=== PATIENT | female | born 1985 | race Caucasian/White ===

== ENCOUNTER 2018-03-16 21:29 | Emergency (ER) | payer MEDICAID, OTHER ==
[~2018-03-16] VITALS: Ht 167.6 cm; Wt 72.7 kg
[~2018-03-16 21:29] MED LIST: CATA0.1T PO; CELE40TA PO; FOLI1TAB5 PO; NICO21PAT TD; TRAZ-163 PO; Thiamine Hcl PO; VITA100T88 PO; VITMTA PO
[2018-03-16 21:30] VITALS: BP 128/90
== END 2018-03-16 23:25 | disposition home or self-care (01) ==
LOC: M ED 21:29
DX: F10.120 Alcohol abuse with intoxication, uncomplicated (principal); Z98.84 Bariatric surgery status; F17.210 Nicotine dependence, cigarettes, uncomplicated

== ENCOUNTER → 2018-04-19 | Outpatient (REF) | payer MEDICAID, OTHER ==
[~2018-04-19] MED LIST changes: +FOLI1TAB11 PO; -FOLI1TAB5 PO
[2018-04-19 13:52] LABS: CHLAMYDIA DNA AMPLIFICATION NEGATIVE (NEGATIVE); GC DNA AMPLIFICATION NEGATIVE (NEGATIVE)
== END ==
LOC: M SFHCPLAZ 11:40
PROVIDERS: ATTEND Student in an Organized Health Care Education/Training Program
DX: Z11.3 Encounter for screening for infections with a predominantly sexual mode of transmission (principal)

== ENCOUNTER → 2018-04-26 | Outpatient (CLI) | payer MEDICAID ==
[2018-04-26 15:42] LABS: HEPATITIS A ANTIBODY IGM NEGATIVE (NEGATIVE); HEPATITIS B CORE ANTIBODY IGM NEGATIVE (NEGATIVE); HEPATITIS B SURFACE ANTIGEN NEGATIVE (NEGATIVE); HEPATITIS C VIRUS ABY INDEX 0.1 INDEX (<0.8); HIV 1&2 SCREEN CENTAUR NEGATIVE (NEGATIVE)
== END ==
LOC: M OUTALCOH 11:48 → M LABDRAW1 11:48
PROVIDERS: ATTEND Psychiatry & Neurology Psychiatry
DX: Z11.3 Encounter for screening for infections with a predominantly sexual mode of transmission (principal); Z11.59 Encounter for screening for other viral diseases; F11.20 Opioid dependence, uncomplicated

== ENCOUNTER 2018-05-17 16:00 | Outpatient (RCR) | payer MEDICAID | END 2018-05-18 | LOC: M OUTALCOH 16:00 | PROVIDERS: ATTEND Psychiatry & Neurology Psychiatry | DX: F10.20 Alcohol dependence, uncomplicated (principal) ==

== ENCOUNTER 2018-05-25 12:45 | Inpatient (IN) | payer MEDICAID, OTHER ==
[~2018-05-25] VITALS: Ht 167.6 cm; Wt 68.2 kg
[2018-05-25] MEDS ORDERED: LORazepam 2 MG/ML VIAL (J2060) As Ordered ONE ×2 (12:58→13:24)
[2018-05-25] MEDS ORDERED: XANA0.5T PO (13:06)
[2018-05-25] MEDS ORDERED: CITA40TA4 PO (13:06)
[2018-05-25] MEDS ORDERED: LARI1TAB5 PO (13:06)
[2018-05-25] MEDS ORDERED: NS 1,000 ML IV ONE ×2 (13:15→15:15)
[2018-05-25] MEDS ORDERED: LORazepam 2 MG/ML VIAL (J2060) IV STA ×4 (13:23→17:40)
[2018-05-25 13:32] LABS: BASO % 0.2 % (0.0-1.0); EOS % 0.2 % (0.0-3.0); HEMATOCRIT 36.9 % (36.0-47.0); HEMOGLOBIN 12.7 g/dl (12.0-15.5); LYMPH % 17.6 % (24.0-44.0); MEAN CORPUSCULAR HEMOGLOBIN 31.5 pg (27.0-33.0); MEAN CORPUSCULAR HGB CONC 34.4 g/dl (32.0-36.5); MEAN CORPUSCULAR VOLUME 91.6 fl (80.0-96.0); MONO # 0.4 10^3/uL (0.0-0.8); MONO % 6.7 % (0.0-5.0); NEUTROPHILS # 4.1 10^3/uL (1.8-7.7); NEUTROPHILS % 74.9 % (36.0-66.0); PLATELET COUNT, AUTOMATED 125 10^3/uL (150-450); RED BLOOD COUNT 4.03 10^6/uL (4.00-5.40); WHITE BLOOD COUNT 5.4 10^3/uL (4.0-10.0)
[2018-05-25 13:52] LABS: HCG, SERUM QUALITATIVE NEGATIVE (NEGATIVE)
[2018-05-25 14:05] LABS: AMPHETAMINES LEVEL URINE NEGATIVE (NEGATIVE); BARBITURATES URINE NEGATIVE (NEGATIVE); BENZODIAZEPINES URINE NEGATIVE (NEGATIVE); CANNABINOIDS URINE NEGATIVE (NEGATIVE); COCAINE METABOLITE URINE NEGATIVE (NEGATIVE); METHADONE URINE NEGATIVE (NEGATIVE); OPIATES URINE NEGATIVE (NEGATIVE); PHENCYCLIDINE URINE NEGATIVE (NEGATIVE)
[2018-05-25 14:16] LABS: OSMOLALITY SERUM 299 MOSM/KG (275-295)
[2018-05-25 14:17] LABS: ACETAMINOPHEN LEVEL < 2.0 UG/ML (10.0-30.0); ALBUMIN 3.6 GM/DL (3.2-5.2); ALT/SGPT 66 U/L (12-78); BILIRUBIN,DIRECT 0.3 MG/DL (0.0-0.2); BILIRUBIN,TOTAL 0.9 MG/DL (0.2-1.0); BLOOD UREA NITROGEN 6 MG/DL (7-18); CALCIUM LEVEL 8.3 MG/DL (8.5-10.1); CARBON DIOXIDE LEVEL 23 MEQ/L (21-32); CHLORIDE LEVEL 94 MEQ/L (98-107); CPK CREATINE PHOSPHOKINASE 1123 U/L (26-192); CREATININE FOR GFR 0.48 MG/DL (0.55-1.30); ETHYL ALCOHOL (ETHANOL) 0.081 % (0.000-0.010); GLOMERULAR FILTRATION RATE > 60.0 (>60); GLUCOSE, FASTING 98 MG/DL (70-100); MB/CK RELATIVE INDEX 0.37 (< OR =4); POTASSIUM SERUM 3.1 MEQ/L (3.5-5.1); SALICYLATE LEVEL < 1.7 MG/DL (5.0-30.0); SODIUM LEVEL 134 MEQ/L (136-145); TOTAL PROTEIN 6.7 GM/DL (6.4-8.2); TROPONIN I < 0.02 NG/ML (< 0.10)
[2018-05-25 14:35] LABS: MAGNESIUM LEVEL 1.5 MG/DL (1.8-2.4)
--- NOTE | 2018-05-25 14:36 | REP ---
Portable chest: Single view. History: Altered mental status. Comparison study: December 07, 2014. Findings: EKG electrodes are seen. The lungs are well inflated and clear. Pleural angles are sharp. Heart size is normal. Pulmonary vasculature is not increased. No bony abnormalities seen. There are surgical clips in the left upper quadrant of the abdomen. Impression: No active disease. Electronically Signed by Juvencio Loyd MD 05/25/2018 02:27 P
[2018-05-25 14:44] LABS: APPEARANCE, URINE CLEAR (CLEAR); BACTERIA, URINE AUTO 1+ (NEGATIVE); BILIRUBIN, URINE AUTO NEGATIVE (NEGATIVE); BLOOD, URINE BLOOD NEGATIVE (NEGATIVE); COLOR, URINE STRAW (YELLOW); GLUCOSE, URINE (UA) AUTO NEGATIVE (NEGATIVE); KETONE, URINE AUTO NEGATIVE (NEGATIVE); LEUKOCYTE ESTERASE, URINE AUTO NEGATIVE (NEGATIVE); NITRITE, URINE AUTO NEGATIVE (NEGATIVE); PROTEIN, URINE AUTO NEGATIVE (NEGATIVE); RBC, URINE AUTO 0 /HPF (0-3); SPECIFIC GRAVITY URINE AUTO 1.001 (1.002-1.035); SQUAMOUS EPITHELIAL CELL UR AU 0 /HPF (0-6); UROBILINOGEN, URINE AUTO 0.2 mg/dL (0.0-2.0); WBC, URINE AUTO 0 /HPF (0-3)
[2018-05-25] MEDS ORDERED: METOCLOPRAMIDE INJ 10MG/2ML VIAL (J2765) IV ONE (14:45)
[2018-05-25] MEDS ORDERED: OXAZEPAM 10 MG CAP PO ONE (15:00)
[2018-05-25] MEDS ORDERED: MAG SULF 1GM/100ML (MAG RUN) 1 GM in APPROPRIATE DILUENT 1 EA IV ONE (15:00)
--- NOTE | 2018-05-25 18:36 | HPE ---
DATE OF ADMISSION: 05/25/2018 CHIEF COMPLAINT: Tremors and alcohol withdrawal. HISTORY OF PRESENT ILLNESS: This is a 32-year-old female with a past medical history of obesity status-post bariatric surgery about one year ago, depression and anxiety, significant alcohol abuse who presents with chief complaint of tremors and alcohol withdrawal after recent relapse. Of note patient has had prior admissions for alcohol abuse withdrawal and suicidal ideation. She reports that she completed detox and rehabilitation about 2 months ago. After being discharged she went right back to drinking about 1 liter of vodka per day. She current has 1 daughter locally who she has lost custody of. She reports she came to be evaluated in the emergency room because she was feeling extremely anxious and agitated. Her last drink was today. REVIEW OF SYSTEMS: Negative systems except as noted above. PAST MEDICAL HISTORY: As noted above in history of present illness. PAST SURGICAL HISTORY: Bariatric surgery about 2 years ago. MEDICATIONS: Patient's home medications are citalopram 40 mg daily, Simone 1-20 mg -mcg 1 tab by mouth daily. ALLERGIES: No known drug allergies. FAMILY HISTORY: Brother also with alcoholism. SOCIAL HISTORY: Patient lives with a boyfriend who she just moved in with today. She denies any smoking or recreational drug use. She drinks about 1 liter of vodka per day. PHYSICAL EXAMINATION: VITALS: Currently she is afebrile to 99.7, blood pressure 107/67, heart rate 119, as high as 143, respiration at 20, sating 94% on room air. GENERAL: She appears very anxious and agitated. HEENT: Oropharynx is clear. Tongue fasciculations. CARDIOVASCULAR: Tachycardic. No murmurs, rubs or gallops, lungs are clear to auscultation bilaterally. ABDOMEN: Soft and nontender and nondistended, positive bowel sounds. EXTREMITIES: No clubbing, cyanosis or edema. She is quite tremulous. NEURO: She is moving all extremities equally. No focal or neurologic deficits. SKIN: Intact. PSYCHE: She appears agitated and anxious. LABS: Reveal a CBC with white count of 5.4, hemoglobin 12, platelets of 125. Chemistry shows a potassium of 3.1, creatinine of 0.48. UA is negative. Ethyl alcohol level is 0.081. CK is elevated to 1123. IMAGING: Chest x-ray shows no active disease. ASSESSMENT AND PLAN: This is a 32-year-old female with a past medical history of significant alcohol abuse and prior bariatric surgery with anxiety and depression who drinks about 1 liter of vodka a day who presents with alcohol withdrawal. PROBLEMS: 1. Alcohol withdrawal. I am admitting her to the PCU for close hemodynamic monitoring. She is on IV fluids and getting thiamine and multivitamin. Official consult will be placed for cessation resources and referral to detox and rehabilitation facilities. 2. Mild rhabdo. We will continue IV fluids at 125 mL per hour. 3. Anxiety and depression. Continue home citalopram. 4. DVT prophylaxis. Encourage ambulation.
[2018-05-25] MEDS: NS 1,000 ML IV SCH (18:38)
[2018-05-25] MEDS: THIAMINE 100 MG TAB PO SCH (18:38)
[2018-05-25] MEDS: LORazepam 2 MG TAB PO PRN (22:44)
[2018-05-26] MEDS: NS 1,000 ML IV SCH (01:45)
[2018-05-26] MEDS: LORazepam 2 MG TAB PO PRN ×3 (02:18→20:16)
--- NOTE | 2018-05-26 07:01 | ECGEPIP ---
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
[2018-05-26 07:08] LABS: HEMATOCRIT 32.4 % (36.0-47.0); HEMOGLOBIN 11.1 g/dl (12.0-15.5); MEAN CORPUSCULAR HEMOGLOBIN 32.2 pg (27.0-33.0); MEAN CORPUSCULAR HGB CONC 34.3 g/dl (32.0-36.5); MEAN CORPUSCULAR VOLUME 93.9 fl (80.0-96.0); RED BLOOD COUNT 3.45 10^6/uL (4.00-5.40)
[2018-05-26 07:34] LABS: PLATELET COUNT, AUTOMATED 65 10^3/uL (150-450)
[2018-05-26 07:44] LABS: BLOOD UREA NITROGEN 3 MG/DL (7-18); CALCIUM LEVEL 7.6 MG/DL (8.5-10.1); CARBON DIOXIDE LEVEL 28 MEQ/L (21-32); CHLORIDE LEVEL 104 MEQ/L (98-107); CREATININE FOR GFR 0.42 MG/DL (0.55-1.30); GLOMERULAR FILTRATION RATE > 60.0 (>60); GLUCOSE, FASTING 77 MG/DL (70-100); POTASSIUM SERUM 2.5 MEQ/L (3.5-5.1); SODIUM LEVEL 140 MEQ/L (136-145)
[2018-05-26 08:46] VITALS: BP 122/82
[2018-05-26 08:51] VITALS: BP 122/82
[2018-05-26] MEDS ORDERED: CitaloPRAM (CeleXA) 20 MG TAB PO SCH (09:00)
[2018-05-26] MEDS ORDERED: MULTIVITAMINS/MINERALS THERAP 1 TAB PO SCH (09:00)
[2018-05-26] MEDS ORDERED: FOLIC ACID 1 MG TAB PO SCH (09:00)
[2018-05-26] MEDS ORDERED: PANTOPRAZOLE 40MG TAB (PROTONIX) PO SCH (09:00)
[2018-05-26] MEDS ORDERED: LARIN PO SCH (09:00)
[2018-05-26] MEDS ORDERED: POTASSIUM CHLORIDE 10 MEQ SR TABLET PO ONE ×2 (09:30→12:30)
[2018-05-26] MEDS ORDERED: MAG SULF 1GM/100ML (MAG RUN) 1 GM in APPROPRIATE DILUENT 1 EA IV ONE (09:45)
[2018-05-26] MEDS: THIAMINE 100 MG TAB PO SCH ×2 (10:05→20:17)
[2018-05-26] MEDS: POTASSIUM CHLORIDE 10 MEQ SR TABLET PO SCH ×2 (10:05→20:16)
[2018-05-26 10:07] LABS: MAGNESIUM LEVEL 1.9 MG/DL (1.8-2.4)
[2018-05-26] MEDS: KCL 40MEQ in NS 1000ML 1,000 ML IV SCH ×2 (11:20→20:16)
[2018-05-26 12:00] VITALS: BP_SYST 119; BP_SYST 122; BP_DIAS 75; BP_DIAS 82
[2018-05-26 16:00] VITALS: BP 132/77
[2018-05-26 20:00] VITALS: BP 117/69
--- NOTE | 2018-05-26 23:26 | IPNPDOC ---
Text Note Date of Service The patient was seen on 05/26/18. NOTE SUBJECTIVE: Feels a little better this morning. Did not require any ativan ove rnight. Still having nausea and no appetite. Does not want to have breakfast. No fever or chills, no tremors or tongue fasciculations. PHYSICAL EXAMINATION: VITALS: As below GENERAL: Lying down comfortably inn no acute distress. HEENT: Oropharynx is clear. moist mucous membranes anicteric eyes. CARDIOVASCULAR: Tachycardic. No murmurs, rubs or gallops, lungs are clear to auscultation bilaterally. ABDOMEN: Soft and nontender and nondistended, positive bowel sounds. EXTREMITIES: No clubbing, cyanosis or edema. She is quite tremulous. NEURO: She is moving all extremities equally. No focal or neurologic deficits. SKIN: Intact. PSYCHE: Normal Labs and radiology: Reviewed. Assessment and Plan: This is a 32-year-old female with a past medical history of obesity status-post bariatric surgery about one year ago, depression and anxiety, significant alcohol abuse who presents with chief complaint of tremors and alcohol withdrawal after recent relapse. Of note patient has had prior admissions for alcohol abuse withdrawal and suicidal ideation. She reports that she completed detox and rehabilitation about 2 months ago. After being discharged she went right back to drinking about 1 liter of vodka per day. She current has 1 daughter locally who she has lost custody of. She reports she came to be evaluated in the emergency room because she was feeling extremely anxious and agitated. Her last drink was today. Alcohol withdrawal: continue with CIWA protocol, ativan thiamine, folate, multivitamins, PPI Electrolyte immbalance--hypokalemia and hypomagnesemia replaced. Mild rhabdo. received IVF. will stop today Anxiety and depression. Continue home citalopram. DVT prophylaxis. Encourage ambulation VS,Fishbone, I+O VS, Fishbone, I+O Laboratory Tests 05/25/18 13:21 Red Blood Count 4.03, Mean Corpuscular Volume 91.6, Mean Corpuscular Hemoglobin 31.5, Mean Corpuscular Hemoglobin Concent 34.4, Red Cell Distribution Width 12.7, Neutrophils (%) (Auto) 74.9 H, Lymphocytes (%) (Auto) 17.6 L, Monocytes (%) (Auto) 6.7 H, Eosinophils (%) (Auto) 0.2, Basophils (%) (Auto) 0.2, Neutrophils # (Auto) 4.1, Lymphocytes # (Auto) 1.0 L, Monocytes # (Auto) 0.4, Eosinophils # (Auto) 0.0, Basophils # (Auto) 0.0 Vital Signs Date Time Temp Pulse Resp B/P (MAP) Pulse Ox O2 Delivery O2 Flow Rate FiO2 05/26/18 04:35 58 05/26/18 02:30 115/73 05/26/18 02:20 98.4 16 97 Room Air I&O- Last 24 Hours up to 6 AM 05/26/18 06:00 Intake Total 2100 ml Balance 2100 ml GLORIA HERNANDEZ MD May 26, 2018 07:18
--- NOTE | 2018-05-30 22:26 | DS.PDOC ---
Discharge Summary General Date of Admission May 25, 2018 at 17:25 Date of Discharge 05/26/18 Attending Physician: GLORIA HERNANDEZ MD Discharge Summary PROCEDURES PERFORMED DURING STAY: [None]. DISCHARGE DIAGNOSES: Alcohol withdrawal COMPLICATIONS/CHIEF COMPLAINT: Alcohol Withdrawal,Etoh Abuse. HISTORY OF PRESENT ILLNESS: See history and physical HOSPITAL COURSE: This is a 32-year-old female with a past medical history of obesity status-post bariatric surgery about one year ago, depression and anxiety, significant alcohol abuse who presents with chief complaint of tremors and alcohol withdrawal after recent relapse. Of note patient has had prior admissions for alcohol abuse withdrawal and suicidal ideation. She reports that she completed detox and rehabilitation about 2 months ago. After being discharged she went right back to drinking about 1 liter of vodka per day. She current has 1 daughter locally who she has lost custody of. She reports she came to be evaluated in the emergency room because she was feeling extremely anxious and agitated. Her last drink was today. Alcohol abuse presented with Alcohol withdrawal: resolved thiamine, folate, multivitamins, PPI Electrolyte imbalance--hypokalemia and hypomagnesemia replaced. Mild rhabdo. received IVF Anxiety and depression. Continue home citalopram. History of morbid obesity s/p gastric bypass surgery DISCHARGE MEDICATIONS: Please see below. ALLERGIES: Please see below. PHYSICAL EXAMINATION ON DISCHARGE: VITAL SIGNS: Please see below. GENERAL: Lying down comfortably inn no acute distress. HEENT: Oropharynx is clear. moist mucous membranes anicteric eyes. CARDIOVASCULAR: Tachycardic. No murmurs, rubs or gallops, lungs are clear to auscultation bilaterally. ABDOMEN: Soft and nontender and nondistended, positive bowel sounds. EXTREMITIES: No clubbing, cyanosis or edema. She is quite tremulous. NEURO: She is moving all extremities equally. No focal or neurologic deficits. SKIN: Intact. PSYCHE: Normal LABORATORY DATA: Please see below. ACTIVITY: [As tolerated]. DIET: As tolerated DISPOSITION: 07 Against Medical Advice. DISCHARGE INSTRUCTIONS: Advised to refrain from drinking. DISCHARGE CONDITION: [Stable]. TIME SPENT ON DISCHARGE: Greater than 30 minutes. Vital Signs/I&Os Vital Signs Date Time Temp Pulse Resp B/P (MAP) Pulse Ox O2 Delivery O2 Flow Rate FiO2 05/26/18 20:00 99.4 80 18 117/69 (85) 97 05/26/18 08:05 Room Air Laboratory Data CBC/BMP Item Value Date Time White Blood Count 5.0 10^3/uL 05/26/18 0644 Red Blood Count 3.45 10^6/uL L 05/26/18 0644 Hemoglobin 11.1 g/dl L 05/26/18 0644 Hematocrit 32.4 % L 05/26/1844 Mean Corpuscular Volume 93.9 fl 05/26/1844 Mean Corpuscular Hemoglobin 32.2 pg 05/26/1844 Mean Corpuscular Hemoglobin Concent 34.3 g/dl 05/26/1844 Red Cell Distribution Width 12.7 % 05/26/1844 Platelet Count 65 10^3/uL L 05/26/18 0644 Sodium Level 140 MEQ/L 05/26/18 0644 Potassium Level 2.5 MEQ/L *L 05/26/18 0644 Chloride Level 104 MEQ/L 05/26/18 0644 Carbon Dioxide Level 28 MEQ/L 05/26/18 0644 Anion Gap 8 MEQ/L 05/26/18 0644 Blood Urea Nitrogen 3 MG/DL L 05/26/18 0644 Creatinine 0.42 MG/DL L 05/26/18 0644 Glomerular Filtration Rate > 60.0 05/26/18 0644 Fasting Glucose 77 MG/DL 05/26/18 0644 Calcium Level 7.6 MG/DL L 05/26/18 0644 Magnesium Level 1.9 MG/DL 05/26/18 0644 Ammonia 24 uMOL/L 05/25/18 1321 Total Creatine Kinase 1123 U/L H 05/25/18 1321 Total Bilirubin 0.9 MG/DL 05/25/18 1321 Direct Bilirubin 0.3 MG/DL H 05/25/18 1321 Aspartate Amino Transf (AST/SGOT) 107 U/L H 05/25/18 1321 Alanine Aminotransferase (ALT/SGPT) 66 U/L 05/25/18 1321 Alkaline Phosphatase 111 U/L 05/25/18 1321 Microbiology Microbiology 05/25/18 Respiratory Virus Panel (PCR) (TARA) - Final, Complete Discharge Medications Scheduled (Simone 04/09 1-20 mg-Mcg) 1 Tab Tab, 1 TAB PO DAILY, (Reported) Citalopram Hydrobromide (Citalopram Hydrobromide) 40 Mg Tab, 40 MG PO DAILY, (Reported) Allergies Coded Allergies: No Known Allergies (Unverified , 05/25/18) GLORIA HERNANDEZ MD May 30, 2018 22:26
== END 2018-05-26 22:10 | disposition left against medical advice (07) | DRG 770 ==
LOC: EDBD 12:45 → M ED 12:45 → M ED INP 17:25 → M PCU 05-26 08:34
PROVIDERS: ADMIT Internal Medicine; ATTEND Internal Medicine Nephrology
DX: F10.239 Alcohol dependence with withdrawal, unspecified (principal); M62.82 Rhabdomyolysis; E83.42 Hypomagnesemia; F41.9 Anxiety disorder, unspecified; F32.9 Major depressive disorder, single episode, unspecified; E87.6 Hypokalemia; R00.0 Tachycardia, unspecified; Z98.84 Bariatric surgery status; Z79.899 Other long term (current) drug therapy; Z81.1 Family history of alcohol abuse and dependence

== ENCOUNTER 2018-07-11 19:13 | Inpatient (IN) | payer MEDICAID, OTHER ==
[~2018-07-11] VITALS: Ht 165.1 cm; Wt 69.0 kg
[~2018-07-11 19:13] MED LIST changes: +CITA40TA4 PO; +LARI1TAB5 PO; +NICO21DI3 TD; -NICO21PAT TD; +XANA0.5T PO
[2018-07-11] MEDS ORDERED: ONDANSETRON 4MG/2ML VIAL (J2405) IV ONE (20:00)
[2018-07-11] MEDS ORDERED: NS 1,000 ML IV ONE ×2 (20:00→21:45)
[2018-07-11 20:06] LABS: HEMATOCRIT 42.5 % (36.0-47.0); HEMOGLOBIN 14.4 g/dl (12.0-15.5); MEAN CORPUSCULAR HEMOGLOBIN 32.4 pg (27.0-33.0); MEAN CORPUSCULAR HGB CONC 33.9 g/dl (32.0-36.5); MEAN CORPUSCULAR VOLUME 95.5 fl (80.0-96.0); PLATELET COUNT, AUTOMATED 255 10^3/uL (150-450); RED BLOOD COUNT 4.45 10^6/uL (4.00-5.40); WHITE BLOOD COUNT 6.1 10^3/uL (4.0-10.0)
[2018-07-11 20:34] LABS: HCG, SERUM QUALITATIVE NEGATIVE (NEGATIVE)
[2018-07-11 20:38] LABS: ACETAMINOPHEN LEVEL < 2.0 UG/ML (10.0-30.0); ALBUMIN 3.9 GM/DL (3.2-5.2); ALT/SGPT 107 U/L (12-78); BILIRUBIN,DIRECT 0.2 MG/DL (0.0-0.2); BILIRUBIN,TOTAL 0.7 MG/DL (0.2-1.0); BLOOD UREA NITROGEN 3 MG/DL (7-18); CALCIUM LEVEL 8.5 MG/DL (8.5-10.1); CARBON DIOXIDE LEVEL 29 MEQ/L (21-32); CHLORIDE LEVEL 100 MEQ/L (98-107); CREATININE FOR GFR 0.46 MG/DL (0.55-1.30); ETHYL ALCOHOL (ETHANOL) 0.433 % (0.000-0.010); GLOMERULAR FILTRATION RATE > 60.0 (>60); GLUCOSE, FASTING 86 MG/DL (70-100); SALICYLATE LEVEL < 1.7 MG/DL (5.0-30.0); SODIUM LEVEL 142 MEQ/L (136-145); TOTAL PROTEIN 7.8 GM/DL (6.4-8.2)
[2018-07-11 20:48] LABS: AMPHETAMINES LEVEL URINE NEGATIVE (NEGATIVE); BARBITURATES URINE NEGATIVE (NEGATIVE); BENZODIAZEPINES URINE NEGATIVE (NEGATIVE); CANNABINOIDS URINE NEGATIVE (NEGATIVE); COCAINE METABOLITE URINE NEGATIVE (NEGATIVE); METHADONE URINE NEGATIVE (NEGATIVE); OPIATES URINE NEGATIVE (NEGATIVE); PHENCYCLIDINE URINE NEGATIVE (NEGATIVE)
[2018-07-11] MEDS: THIAMINE 100 MG TAB PO SCH (21:30)
[2018-07-11] MEDS: LORazepam 2 MG TAB PO PRN (21:56)
--- NOTE | 2018-07-11 23:29 | ECGEPIP ---
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
[2018-07-12] MEDS ORDERED: NS 1,000 ML IV ONE (02:30)
[2018-07-12] MEDS ORDERED: MULTIVITAMINS/MINERALS THERAP 1 TAB PO SCH (09:00)
[2018-07-12] MEDS ORDERED: FOLIC ACID 1 MG TAB PO SCH ×2 (09:00)
[2018-07-12] MEDS ORDERED: THIAMINE 100 MG TAB PO SCH (09:00)
[2018-07-12] MEDS: THIAMINE 100 MG TAB PO SCH ×2 (09:15→21:34)
[2018-07-12] MEDS ORDERED: ACETAMINOPHEN TAB 650MG DOSE (2X325MG) PO PRN (12:15)
[2018-07-12] MEDS ORDERED: traZODone 50 MG TAB PO PRN (12:15)
[2018-07-12] MEDS ORDERED: MOM 30ML SUSPENSION UDC PO PRN (12:15)
[2018-07-12] MEDS ORDERED: MAALOX 30 ML SUSP *UDC PO PRN (12:15)
[2018-07-12] MEDS: LORazepam 2 MG TAB PO PRN ×3 (12:28→21:34)
[2018-07-12] MEDS ORDERED: BIOT1CAP2 PO (12:54)
[2018-07-12 15:20] VITALS: BP 133/82
[2018-07-12 15:25] VITALS: BP 133/82
[2018-07-12 18:00] VITALS: BP 109/79
[2018-07-13 07:09] VITALS: BP 115/72
[2018-07-13 09:08] VITALS: BP 135/84
[2018-07-13] MEDS: FOLIC ACID 1 MG TAB PO SCH (09:13)
[2018-07-13] MEDS: THIAMINE 100 MG TAB PO SCH ×2 (09:13→21:12)
[2018-07-13] MEDS: LORazepam 2 MG TAB PO PRN (09:13)
[2018-07-13] MEDS: MULTIVITAMINS/MINERALS THERAP 1 TAB PO SCH (09:13)
[2018-07-13 11:28] VITALS: BP 106/74
--- NOTE | 2018-07-13 11:54 | MHHPEPDOC ---
General Date Of Admission: Jul 12, 2018 Legal Status: 9.13 Chief Complaint "I want to go home" History of Present Illness HISTORY OF THE PRESENT ILLNESS: Patient is a 32 -year-old , female, with a psych history of depression, anxiety, alcohol use d/o, last admission [facility] 04/09/15 for alcohol use and depression who was brought to ED by EMS after her boyfriend called b/c pt very intoxicated (BAL 0.0443) after binge drinking alcohol for 2 days. In the ED pt stated that she'd been sober for 2 months after completing rehab at [facility] and relapsed on alcohol. 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 In the ED she endorsed anxiety but stated she didn't want rehab or detox. Stated she has a 14y/o daughter that lives with daughter's father and she hasn't seen her since binge drinking began which, per ED, she appeared depressed and guilty about. Pt reported by ED to be a poor historian. She denied SI/HI, hallucinations, delusions at the ED but did state she was not sure if she was safe going home or needed to stay in the hospital. Psychiatric Review of Systems Depression (2 or more weeks): depressed mood, difficulty concentrating, appetite changes Karlee (4 or more days of): denies Psychosis: denies PTSD: denies Anxiety: situational anxiety, stressor related anxiety Anxiety/ 6 months or more of: restlessness, keyed up, difficulty concentrating, irritability Past Psychiatric History Previous Psychiatric Diagnosis: depression, anxiety, alcohol use d/o Previous Psychiatric Admissions: [facility] 05/22/15 and 04/01/15 for depression and alcohol use. [facility] medical floor for alcohol detox 05/25/18. [facility] detox then [facility] rehab 3mo's ago Suicide Attempts: denies Psychiatric Follow-up: PCP prescribes celexa Psychiatric medications: celexa 40mg daily Past Medical History Head Injury: No Seizures: No Hospitalizations: Yes Surgeries: Yes (gastric bypass 05/2017) Family Medical/Psychiatric HX Medical Problems noncontributory Psychiatric Disorders: No Addiction: Yes (bother and uncle - alcohol) Suicide Attemps/Completions: No Addiction History alcohol (1 liter vodka daily) Social History Childhood: raised in [facility] [facility] by her father as her mother left when she was young, 1 older brother and a younger sister, good childhood Abuse/Trauma:denies Current Living Situation: lives with boyfriend Education: high school grad 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 Mental Status Examination General Appearance: unkempt, disheveled, appears stated age, hospital scubs/clothing, other (malodorous) Build: average Demeanor: withdrawn Eye Contact: fair Activity: slowed, anxious Behavior: cooperative, withdrawn Speech: clear, slow, low in volume Mood: depressed, anxious Mood "I feel like shit" Affect: constricted, flat, congruent, anxious Thought Process: logical/linear, depressed, slow Thought Content (Delusions): none reported, denies SI, HI, AVH Thought Content (Other): none reported, appropriate Thought Content (Aggressive): none reported Perception (Hallucinations): none reported Perception (Other): none reported Cognition (Impairment of): none reported Cognition(Intelligence Est.): average Oriented: Awake, Alert, Oriented times three Insight: poor Judgment: Poor Psychosis: Denies Diagnoses Anxiety Unspecified R/O substance induced mood d/o with anxiety and depression alcohol use d/o - severe A-FIB/CHADSVASC A-FIB History Current/History of A-Fib/PAF?: No Current Oral Anticoagulant The: No Treatment Treatment ordered: NONE Reason Anticoagulant not given: Not indicated/[id number] Assessment Pt seen and states she was using alcohol and when she's not she gets anxious due to alcohol withdrawal. States she doesn't know if she wants to be here or not as she's concerned she'll loose her job and needs a note for work. Pt endorses fatigue, anxiety, "I feel like shit" secondary alcohol withdrawal. States she's ok with staying for treatment secondary feeling anxious, depressed, unmotivated, and anhedonic. Feels safe here. Agreeable to [facility] protocol for alcohol withdrawal and restarting celexa daily as is beneficial. Initial Treatment Plan 1. Patient was admitted on a 9.39 status. 2. Complete history was obtained. 3. With patients permission, family will be contacted and database will be expanded. 4. Patients medication regimen will be reviewed and changed accordingly. 5. Patient will be provided with protected environment. 6. Patient will be treated with individual, group, and milieu therapies. 7. Patient will receive supportive psych-education. 8. Discharge planning will commence immediately. 9. Outpatient follow-up treatment will be strongly recommended. 10. The initial treatment plan will focus initially on: * Depression. * Risk for suicide. * Substance abuse. 11. ciwa for alcohol withdrawal, restart celexa 40mg daily, start atarax 25mg q6hr prn anxiety ESTIMATED LENGTH OF STAY: 3-5 DAYS. TIME SPENT COUNSELING AND COORDINATING INITIAL CARE: 60 minutes. Vital Signs Vital Signs Date Time Temp Pulse Resp B/P (MAP) Pulse Ox O2 Delivery O2 Flow Rate FiO2 07/13/18 09:08 104 135/84 07/13/18 07:09 98.2 16 07/12/18 15:25 95 07/12/18 09:16 Room Air Medications Scheduled Biotin (Biotin) 1 Mg Capsule, 1 MG PO DAILY, (Reported) Citalopram Hydrobromide (Citalopram HBr) 40 Mg Tab, 40 MG PO DAILY, (Reported) Norethindrone AC-Eth Estradiol (Simone 21 1-20 Tablet) 1 Tab Tab, 1 TAB PO DAILY, (Reported) NEW RX, WAITING TO START ON SUNDAY 07/16 Allergies Coded Allergies: No Known Allergies (Unverified , 07/11/18) JARRELL SPENCER DO Jul 13, 2018 11:54
[2018-07-13] MEDS ORDERED: hydrOXYzine 25 MG TAB PO PRN (12:00)
[2018-07-13] MEDS ORDERED: CitaloPRAM (CeleXA) 20 MG TAB PO ONE (12:00)
[2018-07-13 13:18] VITALS: BP 135/93
[2018-07-13 18:02] VITALS: BP 111/79
[2018-07-14 06:20] VITALS: BP 120/78
[2018-07-14] MEDS ORDERED: CitaloPRAM (CeleXA) 20 MG TAB PO SCH (09:00)
[2018-07-14] MEDS ORDERED: CITA40TA4 PO (09:09)
[2018-07-14] MEDS ORDERED: TRAZO50TA PO (09:09)
[2018-07-14] MEDS ORDERED: HYDR-3363 PO (09:09)
--- NOTE | 2018-07-14 09:10 | MHDSPDOC ---
[facility] Discharge Summary Discharge Summary DATE OF ADMISSION: Jul 12, 2018 at 12:02 pm DATE OF DISCHARGE: July 14, 2018 DISCHARGE DIAGNOSES: Anxiety Unspecified R/O substance induced mood d/o with anxiety and depression alcohol use d/o - severe REASON FOR ADMISSION: Patient is a 32 -year-old , female, with a psych history of depression, anxiety, alcohol use d/o, last admission [facility] 04/09/15 for alcohol use and depression who was brought to ED by EMS after her boyfriend called b/c pt very intoxicated (BAL 0.0443) after binge drinking alcohol for 2 days. In the ED pt stated that she'd been sober for 2 months after completing rehab at [facility] and relapsed on alcohol. 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 In the ED she endorsed anxiety but stated she didn't want rehab or detox. Stated she has a 14y/o daughter that lives with daughter's father and she hasn't seen her since binge drinking began which, per ED, she appeared depre ssed and guilty about. Pt reported by ED to be a poor historian. She denied SI/HI, hallucinations, delusions at the ED but did state she was not sure if she was safe going home or needed to stay in the hospital. CONSULTANTS INVOLVED: none TREATMENT AND PROGRESS ON THE UNIT : Pt was admitted to [facility], seen for psychiatric assessment and started ciwa protocol with ativan for alcohol withdrawal that she tolerated well and withdrawal symptoms improved although still craving to use alcohol. She was continued on her outpatient celexa 40mg daily for mood. She was provided vistaril 25mg q6hr prn anxiety and trazodone 50mg qhs prn insomnia. Pt found her medications beneficial and tolerated them well. She did not attended groups daily during her stay. Her symptoms improved with treatment. On day of discharge she denied depression, anxiety, insomnia, SI/HI, hallucinations, delusions. She appeared to be craving alcohol and had poor insight and judgement into her alcohol use. She was discharged home with follow-up at [facility]. She felt safe for discharge. DISCHARGE ASSESSMENT: Pt seen and states she feels fine and wants to go home. Denies SI/HI. Appears to craving to be craving alcohol. Feels safe to be discharged home. States alcohol withdrawal is greatly improved. Is tolerating her medications and finding beneficial. Denies depression, anxiety, insomnia, SI/HI, hallucinations, delusions. Feels safe to be discharged to boyfriend's home. MENTAL STATUS EXAMINATION ON DISCHARGE: General Appearance: unkempt, disheveled, appears stated age, hospital scrubs/clothing Build: average Demeanor: anxious, craving alcohol Eye Contact: fair Activity: slowed, anxious Behavior: cooperative, withdrawn Speech: clear, reg volume Mood: euthymic, flat, congruent, anxious Mood "ok" Affect: euthymic, flat, congruent, anxious Thought Process: logical/linear, craving alcohol Thought Content (Delusions): none reported, denies SI, HI, AVH Thought Content (Other): none reported, appropriate Thought Content (Aggressive): none reported Perception (Hallucinations): none reported Perception (Other): none reported Cognition (Impairment of): none reported Cognition(Intelligence Est.): average Oriented: Awake, Alert, Oriented times three Insight: poor regarding alcohol use, good regarding safety Judgment: poor regarding alcohol use, good regarding safety Psychosis: Denies MEDICATIONS ON DISCHARGE: celexa 40mg daily atarax 25mg q6hr prn anxiety trazodone 50mg qhs prn insomnia PLAN/FOLLOWUP ARRANGEMENTS: d/c home with follow-up at [facility]. The amount of time spent in the coordination of care for this patient was approximately minutes. Vital Signs/I&Os Vital Signs Date Time Temp Pulse Resp B/P (MAP) Pulse Ox O2 Delivery O2 Flow Rate FiO2 07/14/18 06:20 97.8 74 16 120/78 (92) 07/12/18 15:25 95 07/12/18 09:16 Room Air Medications Scheduled Biotin (Biotin) 1 Mg Capsule, 1 MG PO DAILY, (Reported) Citalopram Hydrobromide (Citalopram HBr) 40 Mg Tab, 40 MG PO DAILY, (Reported) Norethindrone AC-Eth Estradiol (Simone 21 1-20 Tablet) 1 Tab Tab, 1 TAB PO DAILY, (Reported) NEW RX, WAITING TO START ON SUNDAY 07/16 Allergies Coded Allergies: No Known Allergies (Unverified , 07/11/18) JARRELL SPENCER DO Jul 14, 2018 9:09 am
[2018-07-14] MEDS: MULTIVITAMINS/MINERALS THERAP 1 TAB PO SCH (09:25)
[2018-07-14] MEDS: THIAMINE 100 MG TAB PO SCH (09:25)
[2018-07-14] MEDS: FOLIC ACID 1 MG TAB PO SCH (09:25)
== END 2018-07-14 09:30 | disposition home or self-care (01) | DRG 756 ==
LOC: EDBD 19:13 → M ED 19:13 → M ED INP 07-12 12:02 → M PSY 07-12 14:48
PROVIDERS: ADMIT Psychiatry & Neurology Psychiatry; ATTEND Psychiatry & Neurology Psychiatry
DX: F41.8 Other specified anxiety disorders (principal); F19.94 Other psychoactive substance use, unspecified with psychoactive substance-induced mood disorder; F10.10 Alcohol abuse, uncomplicated

== ENCOUNTER 2018-08-18 12:16 | Inpatient (IN) | payer MEDICAID, SELFPAY ==
[~2018-08-18] VITALS: Ht 165.1 cm; Wt 68.2 kg
[~2018-08-18 12:16] MED LIST changes: +BIOT1CAP2 PO; +HYDR-3363 PO; +TRAZO50TA PO
[2018-08-18] MEDS ORDERED: ONDANSETRON 4MG/2ML VIAL (J2405) IV ONE (13:00)
[2018-08-18] MEDS ORDERED: NS 1,000 ML IV ONE (13:00)
[2018-08-18 13:20] LABS: BASO % 0.2 % (0.0-1.0); HEMOGLOBIN 14.1 g/dl (12.0-15.5); LYMPH # 1.2 10^3/uL (1.5-4.5); LYMPH % 18.3 % (24.0-44.0); MEAN CORPUSCULAR HEMOGLOBIN 33.8 pg (27.0-33.0); MEAN CORPUSCULAR HGB CONC 35.3 g/dl (32.0-36.5); MEAN CORPUSCULAR VOLUME 95.9 fl (80.0-96.0); MONO # 0.3 10^3/uL (0.0-0.8); PLATELET COUNT, AUTOMATED 239 10^3/uL (150-450); RED BLOOD COUNT 4.17 10^6/uL (4.00-5.40); WHITE BLOOD COUNT 6.6 10^3/uL (4.0-10.0)
[2018-08-18 13:48] LABS: AMPHETAMINES LEVEL URINE NEGATIVE (NEGATIVE); BARBITURATES URINE NEGATIVE (NEGATIVE); BENZODIAZEPINES URINE NEGATIVE (NEGATIVE); CANNABINOIDS URINE NEGATIVE (NEGATIVE); COCAINE METABOLITE URINE NEGATIVE (NEGATIVE); METHADONE URINE NEGATIVE (NEGATIVE); OPIATES URINE NEGATIVE (NEGATIVE); PHENCYCLIDINE URINE NEGATIVE (NEGATIVE)
[2018-08-18 13:50] LABS: HCG, SERUM QUALITATIVE NEGATIVE (NEGATIVE)
[2018-08-18 14:02] LABS: ACETAMINOPHEN LEVEL < 2.0 UG/ML (10.0-30.0); ALT/SGPT 83 U/L (12-78); BILIRUBIN,DIRECT 0.3 MG/DL (0.0-0.2); BILIRUBIN,TOTAL 0.8 MG/DL (0.2-1.0); BLOOD UREA NITROGEN < 1 MG/DL (7-18); CARBON DIOXIDE LEVEL 27 MEQ/L (21-32); CHLORIDE LEVEL 88 MEQ/L (98-107); CPK CREATINE PHOSPHOKINASE 548 U/L (26-192); CREATININE FOR GFR 0.44 MG/DL (0.55-1.30); ETHYL ALCOHOL (ETHANOL) 0.295 % (0.000-0.010); GLOMERULAR FILTRATION RATE > 60.0 (>60); GLUCOSE, FASTING 115 MG/DL (70-100); LIPASE 129 U/L (73-393); MAGNESIUM LEVEL 1.5 MG/DL (1.8-2.4); POTASSIUM SERUM 3.8 MEQ/L (3.5-5.1); SALICYLATE LEVEL < 1.7 MG/DL (5.0-30.0); SODIUM LEVEL 130 MEQ/L (136-145); TOTAL PROTEIN 7.1 GM/DL (6.4-8.2)
[2018-08-18] MEDS ORDERED: MAG SULF 1GM/100ML (MAG RUN) 1 GM in APPROPRIATE DILUENT 1 EA IV ONE ×2 (15:15→19:00)
[2018-08-18] MEDS ORDERED: MULTIVITAMIN -ADULT INJECTION 10 ML, THIAMINE INJection 100 MG, FOLIC ACID 1 MG in NS 1... IV ONE (17:30)
[2018-08-18] MEDS ORDERED: LORazepam 2 MG/ML VIAL (J2060) IV STA (17:38)
[2018-08-18] MEDS ORDERED: TEMAZEPAM 15 MG CAP PO PRN (18:00)
[2018-08-18] MEDS ORDERED: MOM 30ML SUSPENSION UDC PO PRN (18:00)
[2018-08-18] MEDS ORDERED: ACETAMINOPHEN TAB 650MG DOSE (2X325MG) PO PRN (18:00)
[2018-08-18] MEDS ORDERED: ONDANSETRON 4MG/2ML VIAL (J2405) IV PRN (18:00)
[2018-08-18] MEDS ORDERED: MAALOX 30 ML SUSP *UDC PO PRN (18:00)
[2018-08-18] MEDS ORDERED: TRAZ-160 PO (18:02)
[2018-08-18] MEDS ORDERED: HYDR-3363 PO (18:02)
[2018-08-18] MEDS ORDERED: CITA40TA4 PO (18:02)
--- NOTE | 2018-08-18 18:03 | HPEPDOC ---
General Date of Admission 08/18/2018 Date of Service: August 18, 2018 Attending Physician: FALGUNI KLINE MD Chief Complaint The patient is a 32-year-old female admitted with a reason for visit of Etoh Abuse. Source: Patient Exam Limitations: No limitations Timing/Duration: Getting worse Severity: Severe Associated Symptoms: Nausea History of Present Illness 32 years old white female past medical history of anxiety disorder has been drinking 30 packs as well as some alcohol every day and decided come to ED for possible detox. Patient offers no new complaints at the present time Home Medications Scheduled Biotin (Biotin) 1 Mg Capsule, 1 MG PO DAILY, (Reported) Citalopram Hydrobromide (Citalopram HBr) 40 Mg Tab, 40 MG PO DAILY for mood Norethindrone AC-Eth Estradiol (Simone 21 1-20 Tablet) 1 Tab Tab, 1 TAB PO DAILY, (Reported) NEW RX, WAITING TO START ON SUNDAY 07/16 Scheduled PRN Hydroxyzine HCl (Hydroxyzine HCl) 25 Mg Tablet, 25 MG PO Q6HP PRN for ANXIETY Trazodone HCl (Trazodone HCl) 50 Mg Tablet, 50 MG PO QHSP PRN for INSOMNIA Allergies Coded Allergies: No Known Allergies (Unverified , 07/11/18) Past Medical History Medical History Anxiety disorder Surgical History None Family History Significant Family History: No pertinent family hx Social History * Smoker: Denies Alcohol: heavy Drugs: denies A-FIB/CHADSVASC A-FIB History Current/History of A-Fib/PAF?: No Review of Systems Constitutional: Reports: Other (shaky); Denies: Chills, Fever, Malaise, Night Sweats, Weakness, Fatigue, Weight Loss, Lethargy Eyes: Denies: Pain, Vision change, Conjunctivae inflammation, Eyelid inflammation, Redness, Other ENT: Denies: Head Aches, Ear Pain, Dysphagia, Sinus Congestion, Post Nasal Drip, Sore Throat, Epistaxis, Other Symptoms Skin: Denies: Rash, Lesions, Jaundice, Bruising, Itching, Dry, Breakdown, Nail Changes, Other Pulmonary: Denies: Dyspnea, Cough, Pleuritic Chest Pain, Other Symptoms Cardiovascular: Denies: Chest Pain, Palpitations, Orthopnea, Paroxysmal Noc. Dyspnea, Edema, Lt Headedness, Other Symptoms Gastrointestinal: Reports: Nausea; Denies: Vomiting, Abdominal Pain, Diarrhea, Constipation, Melena, Hematochezia, Other Symptoms Genitourinary: Denies: Dysuria, Frequency, Incontinence, Hematuria, Retention, Other Symptoms Hematologic: Denies: Bruising, Bleeding Excessively, Petecchia, Purpura, Enla rged Lymph Nodes, Other Hematologic Endocrine: Denies: Polydipsia, Polyphagia, Polyuria, Heat Intolerance, Cold Intolerance, Other Endocrine Sx Musculoskeletal: Denies: Neck Pain, Back Pain, Shoulder Pain, Arm Pain, Hand Pain, Leg Pain, Foot Pain, Joint Pain, Muscle Pain, Spasms, Other Symptoms Neurological: Denies: Weakness, Numbness, Incoordination, Change in speech, Confusion, Seizures, Other Symptoms Psych: Denies: Mood Normal, Anxiety, Depression, Memory Issues, Thoughts of Self Harm, Anger, Thoughts of Harming Other, Other Psych Physical Examination General Exam: Positive: Alert, Cooperative Eye Exam: Positive: PERRLA, Conjunctiva & lids normal ENT Exam: Positive: Atraumatic, Mucous membr. moist/pink Neck Exam: Positive: Supple Chest Exam: Positive: Clear to auscultation, Normal air movement Abdomen Exam: Positive: Normal bowel sounds, Soft Extremity Exam: Positive: Normal pulses Skin Exam: Positive: Nl turgor and temperature Neuro Exam: Positive: Normal Gait, Normal Speech, Cranial Nerves 3-12 NL Psych Exam: Positive: Mental status NL, Oriented x 3 Vital Signs Vital Signs Date Time Temp Pulse Resp B/P (MAP) Pulse Ox O2 Delivery O2 Flow Rate FiO2 08/18/18 12:29 98.5 109 20 127/60 (82) 95 Room Air Laboratory Data Labs 24H Laboratory Tests 2 08/18/18 13:03: Immature Granulocyte % (Auto) 0.5, White Blood Count 6.6, Red Blood Count 4.17, Hemoglobin 14.1, Hematocrit 40.0, Mean Corpuscular Volume 95.9, Mean Corpuscular Hemoglobin 33.8H, Mean Corpuscular Hemoglobin Concent 35.3, Red Cell Distribution Width 12.3, Platelet Count 239, Neutrophils (%) (Auto) 76.0H, Lymphocytes (%) (Auto) 18.3L, Monocytes (%) (Auto) 5.0, Eosinophils (%) (Auto) 0.0, Basophils (%) (Auto) 0.2, Neutrophils # (Auto) 5.0, Lymphocytes # (Auto) 1.2L, Monocytes # (Auto) 0.3, Eosinophils # (Auto) 0.0, Basophils # (Auto) 0.0, Nucleated Red Blood Cells % (auto) 0.0, Anion Gap 15, Glomerular Filtration Rate > 60.0, Calcium Level 9.0, Magnesium Level 1.5L, Aspartate Amino Transf (AST/SGOT) 43H, Alanine Aminotransferase (ALT/SGPT) 83H, Alkaline Phosphatase 74, Total Bilirubin 0.8, Direct Bilirubin 0.3H, Total Creatine Kinase 548H, Total Protein 7.1, Albumin 4.0, Albumin/Globulin Ratio 1.29, Lipase 129, Thyroid Stimulating Hormone (TSH) 1.010, Human Chorionic Gonadotropin, Qual NEGATIVE, Salicylates Level < 1.7L, Urine Amphetamines Screen NEGATIVE, Urine Benzodiazepines Screen NEGATIVE, Urine Opiates Screen NEGATIVE, Urine Methadone Screen NEGATIVE, Acetaminophen Level < 2.0L, Urine Barbiturates Screen NEGATIVE, Urine Phencyclidine Screen NEGATIVE, Urine Cocaine Metabolite Screen NEGATIVE, Urine Cannabinoids Screen NEGATIVE, Ethyl Alcohol Level 0.295H CBC/BMP Laboratory Tests 08/18/18 13:03 Red Blood Count 4.17, Mean Corpuscular Volume 95.9, Mean Corpuscular Hemoglobin 33.8 H, Mean Corpuscular Hemoglobin Concent 35.3, Red Cell Distribution Width 12.3, Neutrophils (%) (Auto) 76.0 H, Lymphocytes (%) (Auto) 18.3 L, Monocytes (%) (Auto) 5.0, Eosinophils (%) (Auto) 0.0, Basophils (%) (Auto) 0.2, Neutrophils # (Auto) 5.0, Lymphocytes # (Auto) 1.2 L, Monocytes # (Auto) 0.3, Eosinophils # (Auto) 0.0, Basophils # (Auto) 0.0 Problems (1) Alcohol intoxication Status: Acute Problem Text: Admit to [facility] floor Remote telemetry IV fluid normal saline at 150 mL per hour , Thiamine, multivitamin and folic acid supplements , Magnesium 1 g IV PB 1 A.m. laboratory work , Restoril 15 mg by mouth daily at bedtime when necessary Zofran 4 mg IV every 4 hours when necessary , Tylenol 650 mg by mouth every 4 hours when necessary , Protonix 40 mg by mouth daily intake and output Telemetry monitoring Vital signs as per unit protocol Shiva protocol. Also has been started with benzodiazepines , We'll closely monitor patient and change meds accordingly DVT prophylaxis with Lovenox (2) Alcohol withdrawal Status: Acute Plan / VTE VTE Prophylaxis Ordered?: Yes FALGUNI KLINE MD August 18, 2018 18:03
[2018-08-18] MEDS ORDERED: ALPR0.5T3 PO (18:04)
[2018-08-18] MEDS: NS 1,000 ML IV SCH (19:39)
[2018-08-18 20:45] VITALS: BP 120/60
[2018-08-18 21:00] VITALS: BP 120/60
[2018-08-18] MEDS: DOCUSATE SODIUM 100 MG CAP PO SCH (21:00)
[2018-08-18] MEDS ORDERED: PANTOPRAZOLE 40MG TAB (PROTONIX) PO ONE (21:00)
[2018-08-18 21:09] VITALS: BP 120/60
[2018-08-18] MEDS: THIAMINE 100 MG TAB PO SCH (21:22)
[2018-08-18] MEDS: LORazepam 2 MG TAB PO PRN (21:22)
[2018-08-18 22:00] VITALS: BP 127/62
[2018-08-18 22:18] VITALS: BP 127/62
--- NOTE | 2018-08-18 22:36 | ECGEPIP ---
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
[2018-08-18 23:00] VITALS: BP 117/57
[2018-08-19] VITALS (9 sets, daily range): BP systolic 102–158; BP diastolic 8–89
[2018-08-19] MEDS: NS 1,000 ML IV SCH ×4 (01:12→21:48)
[2018-08-19] MEDS: LORazepam 2 MG TAB PO PRN ×3 (04:46→16:06)
[2018-08-19 05:11] LABS: HEMATOCRIT 36.3 % (36.0-47.0); HEMOGLOBIN 12.4 g/dl (12.0-15.5); MEAN CORPUSCULAR HGB CONC 34.2 g/dl (32.0-36.5); MEAN CORPUSCULAR VOLUME 96.5 fl (80.0-96.0); PLATELET COUNT, AUTOMATED 179 10^3/uL (150-450); RED BLOOD COUNT 3.76 10^6/uL (4.00-5.40); WHITE BLOOD COUNT 4.5 10^3/uL (4.0-10.0)
[2018-08-19 05:55] LABS: ALBUMIN 3.3 GM/DL (3.2-5.2); ALT/SGPT 73 U/L (12-78); BILIRUBIN,TOTAL 1.6 MG/DL (0.2-1.0); BLOOD UREA NITROGEN 1 MG/DL (7-18); CALCIUM LEVEL 8.5 MG/DL (8.5-10.1); CARBON DIOXIDE LEVEL 30 MEQ/L (21-32); CHLORIDE LEVEL 105 MEQ/L (98-107); CREATININE FOR GFR 0.45 MG/DL (0.55-1.30); GLOMERULAR FILTRATION RATE > 60.0 (>60); GLUCOSE, FASTING 79 MG/DL (70-100); MAGNESIUM LEVEL 2.2 MG/DL (1.8-2.4); POTASSIUM SERUM 3.9 MEQ/L (3.5-5.1); SODIUM LEVEL 143 MEQ/L (136-145); TOTAL PROTEIN 6.3 GM/DL (6.4-8.2)
[2018-08-19] MEDS: FOLIC ACID 1 MG TAB PO SCH (08:20)
[2018-08-19] MEDS: MULTIVITAMINS/MINERALS THERAP 1 TAB PO SCH (08:20)
[2018-08-19] MEDS: THIAMINE 100 MG TAB PO SCH ×2 (08:20→21:48)
[2018-08-19] MEDS: DOCUSATE SODIUM 100 MG CAP PO SCH ×2 (08:20→21:00)
[2018-08-19] MEDS: ENOXAPARIN 40 MG/0.4 ML SYRINGE (J1650) SC SCH (08:21)
--- NOTE | 2018-08-19 09:34 | IPNPDOC ---
Subjective Date Seen The patient was seen on 08/19/18. Subjective Chief Complaint/HPI Patient was sleeping but easily arousable feeling comfortable now wishes to go back to sleep again. Offers no new complaints General: Denies: ROS Unobtainable, Chills, Night Sweats, Fatigue, Malaise, Normal Appetite, Other Symptoms Constitutional: Denies: Chills, Fever, Malaise, Night Sweats, Weakness, Fatigue, Weight Loss, Lethargy, Other Eyes: Denies: Pain, Vision change, Conjunctivae inflammation, Eyelid inflammation, Redness, Other ENT: Denies: Head Aches, Ear Pain, Dysphagia, Sinus Congestion, Post Nasal Drip, Sore Throat, Epistaxis, Other Symptoms Skin: Denies: Rash, Lesions, Jaundice, Bruising, Itching, Dry, Breakdown, Nail Changes, Other Pulmonary: Denies: Dyspnea, Cough, Pleuritic Chest Pain, Other Symptoms Cardiovascular: Denies: Chest Pain, Palpitations, Orthopnea, Paroxysmal Noc. Dyspnea, Edema, Lt Headedness, Other Symptoms Gastrointestinal: Denies: Nausea, Vomiting, Abdominal Pain, Diarrhea, Constipation, Melena, Hematochezia, Other Symptoms Genitourinary: Denies: Dysuria, Frequency, Incontinence, Hematuria, Retention, Other Symptoms Hematologic: Denies: Bruising, Bleeding Excessively, Petecchia, Purpura, Enlarged Lymph Nodes, Other Hematologic Endocrine: Denies: Polydipsia, Polyphagia, Polyuria, Heat Intolerance, Cold Intolerance, Other Endocrine Sx Musculoskeletal: Denies: Neck Pain, Back Pain, Shoulder Pain, Arm Pain, Hand Pain, Leg Pain, Foot Pain, Joint Pain, Muscle Pain, Spasms, Other Symptoms Neurological: Denies: Weakness, Numbness, Incoordination, Change in speech, Confusion, Seizures, Other Symptoms Psych: Denies: Mood Normal, Anxiety, Depression, Memory Issues, Thoughts of Self Harm, Anger, Thoughts of Harming Other, Other Psych Objective Physical Examination General Exam: Positive: Alert, Cooperative Eye Exam: Positive: PERRLA, Conjunctiva & lids normal ENT Exam: Positive: Atraumatic, Mucous membr. moist/pink Neck Exam: Positive: Supple Chest Exam: Positive: Clear to auscultation, Normal air movement Abdomen Exam: Positive: Normal bowel sounds, Soft Extremity Exam: Positive: Normal pulses Skin Exam: Positive: Nl turgor and temperature Neuro Exam: Positive: Normal Gait, Normal Speech, Cranial Nerves 3-12 NL Psych Exam: Positive: Mental status NL, Oriented x 3 Assessment /Plan Problems (1) Alcohol intoxication Status: Acute Problem Text: Admit to [facility] floor Remote telemetry Continue IV fluid normal saline at 150 mL per hour , Thiamine, multivitamin and folic acid supplements and progress , Magnesium 1 g IV PB 1 , Restoril 15 mg by mouth daily at bedtime when necessary Zofran 4 mg IV every 4 hours when necessary , Tylenol 650 mg by mouth every 4 hours when necessary , Protonix 40 mg by mouth daily intake and output Telemetry monitoring Vital signs as per unit protocol [place] protocol. Also has been started with benzodiazepines , We'll closely monitor patient and change meds accordingly DVT prophylaxis with Lovenox (2) Alcohol withdrawal Status: Acute Plan/VTE VTE Prophylaxis Ordered?: Yes VS, I&O, 24H, Fishbone Vital Signs/I&O Vital Signs Date Time Temp Pulse Resp B/P (MAP) Pulse Ox O2 Delivery O2 Flow Rate FiO2 08/19/18 08:21 75 102/69 08/19/18 06:00 98.6 17 96 08/18/18 12:29 Room Air I&O- Last 24 Hours up to 6 AM 08/19/18 05:59 Intake Total 2220 ml Balance 2220 ml Laboratory Data 24H LABS Laboratory Tests 2 08/18/18 13:03: Immature Granulocyte % (Auto) 0.5, White Blood Count 6.6, Red Blood Count 4.17, Hemoglobin 14.1, Hematocrit 40.0, Mean Corpuscular Volume 95.9, Mean Corpuscular Hemoglobin 33.8H, Mean Corpuscular Hemoglobin Concent 35.3, Red Cell Dist ribution Width 12.3, Platelet Count 239, Neutrophils (%) (Auto) 76.0H, Lymphocytes (%) (Auto) 18.3L, Monocytes (%) (Auto) 5.0, Eosinophils (%) (Auto) 0.0, Basophils (%) (Auto) 0.2, Neutrophils # (Auto) 5.0, Lymphocytes # (Auto) 1.2L, Monocytes # (Auto) 0.3, Eosinophils # (Auto) 0.0, Basophils # (Auto) 0.0, Nucleated Red Blood Cells % (auto) 0.0, Anion Gap 15, Glomerular Filtration Rate > 60.0, Calcium Level 9.0, Magnesium Level 1.5L, Aspartate Amino Transf (AST/SGOT) 43H, Alanine Aminotransferase (ALT/SGPT) 83H, Alkaline Phosphatase 74, Total Bilirubin 0.8, Direct Bilirubin 0.3H, Total Creatine Kinase 548H, Total Protein 7.1, Albumin 4.0, Albumin/Globulin Ratio 1.29, Lipase 129, Thyroid Stimulating Hormone (TSH) 1.010, Human Chorionic Gonadotropin, Qual NEGATIVE, Salicylates Level < 1.7L, Urine Amphetamines Screen NEGATIVE, Urine Benzodiazepines Screen NEGATIVE, Urine Opiates Screen NEGATIVE, Urine Methadone Screen NEGATIVE, Acetaminophen Level < 2.0L, Urine Barbiturates Screen NEGATIVE, Urine Phencyclidine Screen NEGATIVE, Urine Cocaine Metabolite Screen NEGATIVE, Urine Cannabinoids Screen NEGATIVE, Ethyl Alcohol Level 0.295H 08/19/18 04:48: Nucleated Red Blood Cells % (auto) 0.0, Anion Gap 8, Glomerular Filtration Rate > 60.0, Calcium Level 8.5, Magnesium Level 2.2, Aspartate Amino Transf (AST/SGOT) 84H, Alanine Aminotransferase (ALT/SGPT) 73, Alkaline Phosphatase 65, Total Bilirubin 1.6#H, Total Protein 6.3L, Albumin 3.3, Albumin/Globulin Ratio 1.10, Blood Urea Nitrogen 1L, Creatinine 0.45L, Sodium Level 143#, Potassium Level 3.9, Chloride Level 105, Carbon Dioxide Level 30 CBC/BMP Laboratory Tests 08/18/18 13:03 Red Blood Count 4.17, Mean Corpuscular Volume 95.9, Mean Corpuscular Hemoglobin 33.8 H, Mean Corpuscular Hemoglobin Concent 35.3, Red Cell Distribution Width 12.3, Neutrophils (%) (Auto) 76.0 H, Lymphocytes (%) (Auto) 18.3 L, Monocytes (%) (Auto) 5.0, Eosinophils (%) (Auto) 0.0, Basophils (%) (Auto) 0.2, Neutroph ils # (Auto) 5.0, Lymphocytes # (Auto) 1.2 L, Monocytes # (Auto) 0.3, Eosinophils # (Auto) 0.0, Basophils # (Auto) 0.0 08/19/18 04:48 Red Blood Count 3.76 L, Mean Corpuscular Volume 96.5 H, Mean Corpuscular Hemoglobin 33.0, Mean Corpuscular Hemoglobin Concent 34.2, Red Cell Distribution Width 12.6, Calcium Level 8.5, Aspartate Amino Transf (AST/SGOT) 84 H, Alanine Aminotransferase (ALT/SGPT) 73, Alkaline Phosphatase 65, Total Bilirubin 1.6 #H, Total Protein 6.3 L, Albumin 3.3 FALGUNI KLINE MD Aug 19, 2018 09:34
[2018-08-19] MEDS: OXAZEPAM 15 MG CAP PO SCH ×2 (16:00→23:24)
[2018-08-20] VITALS (8 sets, daily range): BP systolic 118–136; BP diastolic 72–81
[2018-08-20] MEDS: NS 1,000 ML IV SCH ×4 (04:44→22:58)
[2018-08-20 05:37] LABS: HEMATOCRIT 34.6 % (36.0-47.0); HEMOGLOBIN 11.4 g/dl (12.0-15.5); MEAN CORPUSCULAR HEMOGLOBIN 32.6 pg (27.0-33.0); MEAN CORPUSCULAR HGB CONC 32.9 g/dl (32.0-36.5); MEAN CORPUSCULAR VOLUME 98.9 fl (80.0-96.0); PLATELET COUNT, AUTOMATED 136 10^3/uL (150-450); WHITE BLOOD COUNT 4.4 10^3/uL (4.0-10.0)
[2018-08-20 06:06] LABS: BLOOD UREA NITROGEN 3 MG/DL (7-18); CALCIUM LEVEL 8.4 MG/DL (8.5-10.1); CARBON DIOXIDE LEVEL 25 MEQ/L (21-32); CHLORIDE LEVEL 106 MEQ/L (98-107); CREATININE FOR GFR 0.31 MG/DL (0.55-1.30); GLOMERULAR FILTRATION RATE > 60.0 (>60); GLUCOSE, FASTING 76 MG/DL (70-100); MAGNESIUM LEVEL 1.7 MG/DL (1.8-2.4); POTASSIUM SERUM 3.4 MEQ/L (3.5-5.1); SODIUM LEVEL 141 MEQ/L (136-145)
[2018-08-20] MEDS ORDERED: POTASSIUM CHLORIDE 10 MEQ SR TABLET PO ONE (07:00)
[2018-08-20] MEDS ORDERED: MAG SULF 1GM/100ML (MAG RUN) 1 GM in APPROPRIATE DILUENT 1 EA IV ONE (07:00)
[2018-08-20] MEDS: FOLIC ACID 1 MG TAB PO SCH (07:23)
[2018-08-20] MEDS: THIAMINE 100 MG TAB PO SCH ×2 (07:23→20:36)
[2018-08-20] MEDS: MULTIVITAMINS/MINERALS THERAP 1 TAB PO SCH (07:23)
[2018-08-20] MEDS: OXAZEPAM 15 MG CAP PO SCH ×3 (07:24→23:01)
[2018-08-20] MEDS: ENOXAPARIN 40 MG/0.4 ML SYRINGE (J1650) SC SCH (07:24)
[2018-08-20] MEDS: DOCUSATE SODIUM 100 MG CAP PO SCH ×2 (07:24→20:36)
--- NOTE | 2018-08-20 08:53 | IPNPDOC ---
Subjective Date Seen The patient was seen on 08/20/18. Subjective Chief Complaint/HPI As per patient, she is feeling the same, but she seems comfortable, not anxious, in no apparent distress General: Denies: ROS Unobtainable, Chills, Night Sweats, Fatigue, Malaise, Normal Appetite, Other Symptoms Constitutional: Denies: Chills, Fever, Malaise, Night Sweats, Weakness, Fatigue, Weight Loss, Lethargy, Other Pulmonary: Denies: Dyspnea, Cough, Pleuritic Chest Pain, Other Symptoms Cardiovascular: Denies: Chest Pain, Palpitations, Orthopnea, Paroxysmal Noc. Dyspnea, Edema, Lt Headedness, Other Symptoms Gastrointestinal: Denies: Nausea, Vomiting, Abdominal Pain, Diarrhea, Constipation, Melena, Hematochezia, Other Symptoms Musculoskeletal: Denies: Neck Pain, Back Pain, Shoulder Pain, Arm Pain, Hand Pain, Leg Pain, Foot Pain, Joint Pain, Muscle Pain, Spasms, Other Symptoms Neurological: Denies: Weakness, Numbness, Incoordination, Change in speech, Confusion, Seizures, Other Symptoms Psych: Denies: Mood Normal, Anxiety, Depression, Memory Issues, Thoughts of Self Harm, Anger, Thoughts of Harming Other, Other Psych Objective Physical Examination General Exam: Positive: Alert, Cooperative Eye Exam: Positive: PERRLA Neck Exam: Positive: Supple Chest Exam: Positive: Clear to auscultation, Normal air movement Heart Exam: Positive: Rate Normal, Normal S1 Abdomen Exam: Positive: Normal bowel sounds, Soft Extremity Exam: Positive: Normal pulses Skin Exam: Positive: Nl turgor and temperature Psych Exam: Positive: Mental status NL, Oriented x 3 Assessment /Plan Problems (1) Alcohol intoxication Status: Acute Problem Text: Telemetry monitoring Vital signs as per unit protocol [place] protocol. Also has been started with benzodiazepines , We'll closely monitor patient and change meds accordingly Patient also was started on oxazepam 15 mg by mouth every 8 hours were all "withdrawal Patient is clinically stable, asymptomatic and comfortable Continue present care, including IV fluids (2) Alcohol withdrawal Status: Acute (3) Hypomagnesemia Status: Acute Problem Text: Secondary to alcohol abuse Mag sulfate 1 g IV 1 ordered A.m. labs ordered (4) Hypokalemia Status: Acute Problem Text: Corrected with KCl 40 mg equivalence 1 A.m. labs Plan/VTE VTE Prophylaxis Ordered?: Yes VS, I&O, 24H, Fishbone Vital Signs/I&O Vital Signs Date Time Temp Pulse Resp B/P (MAP) Pulse Ox O2 Delivery O2 Flow Rate FiO2 08/20/18 06:00 98.1 47 15 126/74 (91) 96 08/18/18 12:29 Room Air I&O- Last 24 Hours up to 6 AM 08/20/18 06:00 Intake Total 2930 ml Output Total 1200 ml Balance 1730 ml Laboratory Data 24H LABS Laboratory Tests 2 08/20/18 05:14: Nucleated Red Blood Cells % (auto) 0.0, Anion Gap 10, Glomerular Filtration Rate > 60.0, Blood Urea Nitrogen 3#L, Creatinine 0.31L, Sodium Level 141, Potassium Level 3.4L, Chloride Level 106, Carbon Dioxide Level 25, Calcium Level 8.4L, Magnesium Level 1.7L CBC/BMP Laboratory Tests 08/20/18 05:14 Red Blood Count 3.50 L, Mean Corpuscular Volume 98.9 H, Mean Corpuscular Hemoglobin 32.6, Mean Corpuscular Hemoglobin Concent 32.9, Red Cell Distribution Width 12.5, Calcium Level 8.4 L FALGUNI KLINE MD Aug 20, 2018 08:53
[2018-08-20] MEDS: LORazepam 2 MG TAB PO PRN (12:26)
--- NOTE | 2018-08-20 13:18 | ECGEPIP ---
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
--- NOTE | 2018-08-20 13:21 | ECGEPIP ---
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
[2018-08-21] MEDS: NS 1,000 ML IV SCH (05:58)
[2018-08-21 06:00] VITALS: BP 132/68
[2018-08-21 06:04] LABS: HEMATOCRIT 34.5 % (36.0-47.0); HEMOGLOBIN 11.7 g/dl (12.0-15.5); MEAN CORPUSCULAR HEMOGLOBIN 34.1 pg (27.0-33.0); MEAN CORPUSCULAR HGB CONC 33.9 g/dl (32.0-36.5); MEAN CORPUSCULAR VOLUME 100.6 fl (80.0-96.0); PLATELET COUNT, AUTOMATED 122 10^3/uL (150-450); RED BLOOD COUNT 3.43 10^6/uL (4.00-5.40); WHITE BLOOD COUNT 5.3 10^3/uL (4.0-10.0)
[2018-08-21 06:22] LABS: ALBUMIN 3.1 GM/DL (3.2-5.2); ALT/SGPT 120 U/L (12-78); BILIRUBIN,TOTAL 0.9 MG/DL (0.2-1.0); BLOOD UREA NITROGEN 3 MG/DL (7-18); CALCIUM LEVEL 8.5 MG/DL (8.5-10.1); CARBON DIOXIDE LEVEL 27 MEQ/L (21-32); CHLORIDE LEVEL 108 MEQ/L (98-107); CREATININE FOR GFR 0.33 MG/DL (0.55-1.30); GLOMERULAR FILTRATION RATE > 60.0 (>60); GLUCOSE, FASTING 84 MG/DL (70-100); MAGNESIUM LEVEL 1.8 MG/DL (1.8-2.4); POTASSIUM SERUM 3.4 MEQ/L (3.5-5.1); SODIUM LEVEL 142 MEQ/L (136-145)
[2018-08-21 08:00] VITALS: BP 118/74
[2018-08-21] MEDS: THIAMINE 100 MG TAB PO SCH (08:13)
[2018-08-21] MEDS: OXAZEPAM 15 MG CAP PO SCH (08:13)
[2018-08-21] MEDS: FOLIC ACID 1 MG TAB PO SCH (08:13)
[2018-08-21] MEDS: MULTIVITAMINS/MINERALS THERAP 1 TAB PO SCH (08:13)
[2018-08-21] MEDS: ENOXAPARIN 40 MG/0.4 ML SYRINGE (J1650) SC SCH (08:14)
[2018-08-21] MEDS: DOCUSATE SODIUM 100 MG CAP PO SCH (08:14)
[2018-08-21] MEDS ORDERED: POTASSIUM CHLORIDE 10 MEQ SR TABLET PO SCH (09:00)
--- NOTE | 2018-08-21 10:39 | DS.PDOC ---
Discharge Summary General Date of Admission Aug 19, 2018 Date of Discharge 08/21/2018 Attending Physician: FALGUNI KLINE MD Discharge Summary PROCEDURES PERFORMED DURING STAY: None. ADMITTING DIAGNOSES: 1. Alcohol intoxication. DISCHARGE DIAGNOSES: 1. Alcohol withdrawal, hypokalemia, hypomagnesemia. COMPLICATIONS/CHIEF COMPLAINT: Alcohol Intoxication. HISTORY OF PRESENT ILLNESS: 32 years old white female past medical history of anxiety disorder has been drinking 30 packs as well as some alcohol every day and decided come to ED for possible detox. Patient offers no new complaints at the present time. HOSPITAL COURSE: [Patient was admitted with the diagnosis of: Intoxication, possible alcohol withdrawal. Patient was admitted on telemetry onthe regular floor. . She was started on IV fluids with normal saline 150 mL/h along with the CIWA protocol with benzodiazepines but patient was found to have tremors between the dosage so she was started on oxazepam 15 mg by mouth 3 times a day, which she responded very well to the above treatment Patient is eating and drinking now. No symptoms was to go home. She will be discharged home on current medication. Extensive counseling regarding all: Abuse. Side effects and complication were explained to her. She understands very well. She will be discharged home on all her home medications DISCHARGE MEDICATIONS: Please see below. ALLERGIES: Please see below. PHYSICAL EXAMINATION ON DISCHARGE: VITAL SIGNS: Please see below. GENERAL: Normal HEENT: PERRLA NECK: Supple CARDIOVASCULAR EXAMINATION: S1, S2, regular RESPIRATORY EXAMINATION: Clear to A&P ABDOMINAL EXAMINATION: Benign EXTREMITIES: No clubbing, cyanosis, edema SKIN: Normal NEUROLOGICAL EXAMINATION: No focal motor sensory deficit PSYCHIATRIC EXAMINATION: Normal LABORATORY DATA: Please see below. IMAGING: As per EMR PROGNOSIS: [Good ACTIVITY: As tolerated. DIET: As tolerated DISCHARGE PLAN: Home DISPOSITION: . Home DISCHARGE INSTRUCTIONS: 1. As above. ITEMS TO FOLLOWUP ON ON OUTPATIENT: 1. As above. DISCHARGE CONDITION: Stable. TIME SPENT ON DISCHARGE: 35 minutes. Vital Signs/I&Os Vital Signs Date Time Temp Pulse Resp B/P (MAP) Pulse Ox O2 Delivery O2 Flow Rate FiO2 08/21/18 08:00 107 118/74 08/21/18 06:00 96.3 16 95 08/18/18 12:29 Room Air I&O- Last 24 Hours up to 6 AM 08/21/18 06:00 Intake Total 3940 ml Output Total 6150 ml Balance -2210 ml Laboratory Data Labs 24H Laboratory Tests 2 08/21/18 05:20: Nucleated Red Blood Cells % (auto) 0.0, Anion Gap 7L, Glomerular Filtration Rate > 60.0, Blood Urea Nitrogen 3L, Creatinine 0.33L, Sodium Level 142, Potassium Level 3.4L, Chloride Level 108H, Carbon Dioxide Level 27, Calcium Level 8.5, Aspartate Amino Transf (AST/SGOT) 94H, Alanine Aminotransferase (ALT/SGPT) 120H, Alkaline Phosphatase 80, Total Bilirubin 0.9, Total Protein 6.0L, Albumin 3.1L, Magnesium Level 1.8, Albumin/Globulin Ratio 1.07 08/21/18 06:18: Bedside Glucose (Misc Panel) 120H CBC/BMP Laboratory Tests 08/21/18 05:20 Red Blood Count 3.43 L, Mean Corpuscular Volume 100.6 H, Mean Corpuscular Hemoglobin 34.1 H, Mean Corpuscular Hemoglobin Concent 33.9, Red Cell Distribution Width 12.2, Calcium Level 8.5, Aspartate Amino Transf (AST/SGOT) 94 H, Alanine Aminotransferase (ALT/SGPT) 120 H, Alkaline Phosphatase 80, Total Bilirubin 0.9, Total Protein 6.0 L, Albumin 3.1 L FSBS Laboratory Tests Test 08/21/18 06:18 Range/Units Bedside Glucose (Misc Panel) 120 70-105 MG/DL Discharge Medications Scheduled Biotin (Biotin) 1 Mg Capsule, 1 MG PO DAILY, (Reported) Citalopram Hydrobromide (Citalopram HBr) 40 Mg Tablet, 40 MG PO DAILY, (Reported) Norethindrone AC-Eth Estradiol (Simone 21 1-20 Tablet) 1 Tab Tab, 1 TAB PO DAILY, (Reported) Scheduled PRN Alprazolam (Alprazolam) 0.5 Mg Tablet, 0.5 MG PO QID PRN for PANIC ATTACKS, (Reported) Hydroxyzine HCl (Hydroxyzine HCl) 25 Mg Tablet, 25 MG PO Q6H PRN for ANXIETY, (Reported) Trazodone HCl (Trazodone HCl) 50 Mg Tablet, 50 MG PO QHS PRN for INSOMNIA, (Reported) Allergies Coded Allergies: No Known Allergies (Unverified , 07/11/18) FALGUNI KLINE MD Aug 21, 2018 10:39
== END 2018-08-21 11:17 | disposition home or self-care (01) | DRG 775 ==
LOC: EDBD 12:16 → M ED 12:16 → M ED INP 17:50 → M MSPAV 20:31 → OBSVTOIN 08-21 08:00
PROVIDERS: ADMIT Internal Medicine; ATTEND Internal Medicine
DX: F10.129 Alcohol abuse with intoxication, unspecified (principal); E83.42 Hypomagnesemia; F41.9 Anxiety disorder, unspecified; Z79.899 Other long term (current) drug therapy; E87.6 Hypokalemia

== ENCOUNTER 2019-02-09 16:25 | Emergency (ER) | payer MEDICAID, OTHER, SELFPAY ==
[~2019-02-09] VITALS: Ht 198.1 cm; Wt 65.0 kg
[~2019-02-09 16:25] MED LIST changes: +ALPR0.5T3 PO; +TRAZ-252 PO; +TRAZ1TAB10 PO; -TRAZO50TA PO
[2019-02-09] MEDS ORDERED: LARI1TAB5 (16:36)
[2019-02-09] MEDS ORDERED: NS 1,000 ML IV ONE (16:45)
[2019-02-09] MEDS ORDERED: OXAZEPAM 15 MG CAP PO ONE (17:00)
[2019-02-09 17:23] LABS: HEMATOCRIT 38.2 % (36.0-47.0); HEMOGLOBIN 13.4 g/dl (12.0-15.5); MEAN CORPUSCULAR HEMOGLOBIN 33.1 pg (27.0-33.0); MEAN CORPUSCULAR HGB CONC 35.1 g/dl (32.0-36.5); MEAN CORPUSCULAR VOLUME 94.3 fl (80.0-96.0); PLATELET COUNT, AUTOMATED 305 10^3/uL (150-450); RED BLOOD COUNT 4.05 10^6/uL (4.00-5.40); WHITE BLOOD COUNT 10.3 10^3/uL (4.0-10.0)
[2019-02-09 17:31] LABS: HCG, SERUM QUALITATIVE NEGATIVE (NEGATIVE)
[2019-02-09 17:38] LABS: AMPHETAMINES LEVEL URINE NEGATIVE (NEGATIVE); BARBITURATES URINE NEGATIVE (NEGATIVE); BENZODIAZEPINES URINE NEGATIVE (NEGATIVE); CANNABINOIDS URINE NEGATIVE (NEGATIVE); COCAINE METABOLITE URINE NEGATIVE (NEGATIVE); METHADONE URINE NEGATIVE (NEGATIVE); OPIATES URINE NEGATIVE (NEGATIVE); PHENCYCLIDINE URINE NEGATIVE (NEGATIVE)
[2019-02-09 17:40] LABS: ALT/SGPT 39 U/L (12-78); BILIRUBIN,DIRECT 0.2 MG/DL (0.0-0.2); BILIRUBIN,TOTAL 0.8 MG/DL (0.2-1.0); BLOOD UREA NITROGEN 4 MG/DL (7-18); CALCIUM LEVEL 8.5 MG/DL (8.5-10.1); CARBON DIOXIDE LEVEL 23 MEQ/L (21-32); CHLORIDE LEVEL 92 MEQ/L (98-107); CREATININE FOR GFR 0.55 MG/DL (0.55-1.30); ETHYL ALCOHOL (ETHANOL) 0.292 % (0.000-0.010); GLOMERULAR FILTRATION RATE > 60.0 (>60); GLUCOSE, FASTING 97 MG/DL (70-100); SALICYLATE LEVEL < 1.7 MG/DL (5.0-30.0); SODIUM LEVEL 129 MEQ/L (136-145); TOTAL PROTEIN 7.6 GM/DL (6.4-8.2)
[2019-02-09 17:41] LABS: ACETAMINOPHEN LEVEL < 2.0 UG/ML (10.0-30.0)
[2019-02-09 18:18] LABS: MAGNESIUM LEVEL 1.9 MG/DL (1.8-2.4)
[2019-02-09] MEDS ORDERED: ACETAMINOPHEN TAB 650MG DOSE (2X325MG) PO ONE (18:45)
[2019-02-10 00:34] VITALS: BP 143/94
== END 2019-02-10 00:37 | disposition home or self-care (01) ==
LOC: M ED 16:25
DX: F10.220 Alcohol dependence with intoxication, uncomplicated (principal); T49.6X2A Poisoning by otorhinolaryngological drugs and preparations, intentional self-harm, initial encounter; F32.9 Major depressive disorder, single episode, unspecified; Z79.899 Other long term (current) drug therapy
CPT/HCPCS: 80048; 80076; 80307; 83735; 84443; 84703; 85027; 93041; 94760; 99285; G0480

== ENCOUNTER 2019-07-04 12:17 | Inpatient (IN) | payer OTHER ==
[~2019-07-04] VITALS: Ht 167.6 cm; Wt 70.5 kg
[~2019-07-04 12:17] MED LIST changes: +ACAM0.05; -TRAZ-163 PO; +TRAZ-257 PO
[2019-07-04] MEDS ORDERED: LORazepam 2 MG/ML VIAL (J2060) IV STA ×3 (12:47→18:22)
[2019-07-04] MEDS ORDERED: NS 1,000 ML IV ONE (13:00)
[2019-07-04] MEDS ORDERED: MULTIVITAMIN -ADULT INJECTION 10 ML, THIAMINE INJection 100 MG, FOLIC ACID 1 MG in NS 1... IV ONE ×2 (13:00→20:15)
[2019-07-04 13:15] LABS: BASO % 0.2 % (0.0-1.0); HEMATOCRIT 37.5 % (36.0-47.0); HEMOGLOBIN 12.9 g/dl (12.0-15.5); LYMPH # 1.1 10^3/uL (1.5-5.0); LYMPH % 10.1 % (24.0-44.0); MEAN CORPUSCULAR HEMOGLOBIN 31.9 pg (27.0-33.0); MEAN CORPUSCULAR HGB CONC 34.4 g/dl (32.0-36.5); MEAN CORPUSCULAR VOLUME 92.8 fl (80.0-96.0); MONO # 0.4 10^3/uL (0.0-0.8); MONO % 3.4 % (0.0-5.0); NEUTROPHILS # 9.7 10^3/uL (1.5-8.5); NEUTROPHILS % 85.9 % (36.0-66.0); PLATELET COUNT, AUTOMATED 201 10^3/uL (150-450); RED BLOOD COUNT 4.04 10^6/uL (4.00-5.40); WHITE BLOOD COUNT 11.3 10^3/uL (4.0-10.0)
[2019-07-04 13:37] LABS: AMPHETAMINES LEVEL URINE NEGATIVE (NEGATIVE); BARBITURATES URINE NEGATIVE (NEGATIVE); BENZODIAZEPINES URINE NEGATIVE (NEGATIVE); CANNABINOIDS URINE NEGATIVE (NEGATIVE); COCAINE METABOLITE URINE NEGATIVE (NEGATIVE); METHADONE URINE NEGATIVE (NEGATIVE); OPIATES URINE NEGATIVE (NEGATIVE); PHENCYCLIDINE URINE NEGATIVE (NEGATIVE)
[2019-07-04 13:45] LABS: ALBUMIN 3.9 GM/DL (3.2-5.2); ALT/SGPT 80 U/L (12-78); BLOOD UREA NITROGEN 3 MG/DL (7-18); CALCIUM LEVEL 8.6 MG/DL (8.5-10.1); CARBON DIOXIDE LEVEL 22 MEQ/L (21-32); CHLORIDE LEVEL 93 MEQ/L (98-107); CREATININE FOR GFR 0.52 MG/DL (0.55-1.30); ETHYL ALCOHOL (ETHANOL) 0.307 % (0.000-0.010); GLOMERULAR FILTRATION RATE > 60.0 (>60); GLUCOSE, FASTING 135 MG/DL (70-100); POTASSIUM SERUM 3.9 MEQ/L (3.5-5.1); SODIUM LEVEL 131 MEQ/L (136-145); TOTAL PROTEIN 7.5 GM/DL (6.4-8.2)
[2019-07-04] MEDS ORDERED: D5W/0.9% SODIUM CHLORIDE 1,000 ML IV SCH (18:45)
[2019-07-04] MEDS ORDERED: ENOXAPARIN 40MG/0.4ML SYRINGE (J1650 PER 10MG) SC ONE (19:15)
[2019-07-04] MEDS ORDERED: LORazepam 2 MG/ML VIAL (J2060) IV PRN (19:15)
[2019-07-04] MEDS ORDERED: diazePAM 5 MG TAB PO ONE (20:15)
[2019-07-04] MEDS ORDERED: ONDANSETRON 4MG/2ML VIAL (J2405 PER 1MG) IV ONE (20:15)
--- NOTE | 2019-07-04 21:05 | HPE ---
DATE OF ADMISSION: 07/04/2019 CHIEF COMPLAINT: Tremors HISTORY OF PRESENT ILLNESS: A 33-year-old female with a history of alcohol abuse and multiple admissions for alcohol intoxication and withdrawal presented to the emergency room due to complaints of shaking, anxiety, restlessness since 10 a.m. this morning. Patient has not been eating well for the past 2 days. Has been drinking heavily, two 12-packs of beer. Last drink was 10 a.m. this morning. Says that she usually goes on a burrows and then gets sober for some time and then drinks again. Complained of increased diaphoresis, lightheadedness, unsteady gait, slight shortness of breath without any fever, chills, or cough. No exposure of COVID- positive patients. Had noted worsening withdrawal symptoms into the late morning. Presented to the emergency room (ER) for admission. Patient has not sought any alcohol rehabilitation program in the past and is not intersected in doing so. She denies any use of recreational drugs in the past or currently. In the ER she was found to be tachycardic, sinus at 136-140, afebrile, blood pressure 120 systolic. Hospitalist was called to admit for alcohol withdrawal symptoms. PAST MEDICAL HISTORY: 1. Anxiety. 2. Depression. 3. Alcohol abuse. PAST SURGICAL HISTORY: Bariatric surgery 2 years ago at [place]. ALLERGIES: No known allergies. HOME MEDICATIONS: Citalopram, Simone 21, one tablet daily. SOCIAL HISTORY: Lives in a new apartment. She has been "back and forth" with her boyfriend, but he currently does not live there. 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 She still smokes cigarettes, less than a half a pack a day. Drinks heavily on "benders," about two 12-packs of beer a few times a week. Full code. FAMILY HISTORY: Father in his 60s, alive. Not seen a physician in a long time. Unknown medical problems. Mother alive, unknown whereabouts. REVIEW OF SYSTEMS: Per history of present illness (HPI). A 12-point system otherwise negative. PHYSICAL EXAMINATION: Temperature 97.6, pulse 140, sinus, respiratory rate 20, blood pressure 120/78, 96% on room air. GENERAL: Patient is awake, alert, oriented to person, place, and time. Answering questions appropriately. She has no pallor, no icterus or jaundice. No jugular venous distention (JVD) or thyromegaly. Moist mucous membranes. LUNGS: Clear to auscultation. No wheezing or rales. HEART: S1, S2, sinus tachycardia. ABDOMEN: Soft, nontender, nondistended. Positive bowel sounds times four quadrants. No rebound. No guarding. EXTREMITIES: No cyanosis, clubbing, or edema. Patient has asterixis and tremors. No spider angiomata on the abdomen. LABORATORY DATA: White count 11, hematocrit 12, hemoglobin 37, platelet count 201, 85% neutrophils. Sodium 131, potassium 3.9, chloride 92, bicarbonate 22, BUN 3, creatinine 0.52, glucose 135, calcium 8.6. Total bilirubin 1, AST 114, ALT 80, alkaline phosphatase 78, total protein 7.5, albumin 3.9. Beta hCG less than 5. ASSESSMENT AND PLAN: A 33-year-old female with a history of depression, anxiety, alcohol abuse. Multiple admissions for alcohol withdrawal and alcohol intoxication. Presented to the emergency room with complaints of tremors, admitted for alcohol withdrawal. IMPRESSION: 1. Alcohol withdrawal. Patient is admitted to telemetry unit. She is kept on multivitamin, thiamine, folate. Given banana bag on arrival. Currently on Serax as needed every 6 hours, 20 mg, Ativan 2 mg intravenously per Clinical [place] Withdrawal Assessment (CIWA) protocol. Alcohol cessation counseling has been provided. Patient has refused alcohol rehabilitation program in the past and currently. 2. Active tobacco abuse. Tobacco cessation counseling has been provided. Currently refuses to quit cigarette use. As-needed nicotine replacement gum. 3. Depression. Continue on citalopram. Monitor on telemetry for QT prolongation. 4. History of bariatric surgery, currently maintaining body mass index (BMI) of 24.3. Outpatient followup. 5. Deep vein thrombosis (DVT) prophylaxis with subcutaneous Lovenox. 6. Diet. Currently on liquid diet due to decrease in appetite and complaints of nausea. May advance in the morning. 7. Sinus tachycardia secondary to withdrawal. Continue on telemetry monitoring. 8. Code status. Full code. MTDD
[2019-07-04 22:30] VITALS: BP 121/87
[2019-07-04 23:30] VITALS: BP 121/87
[2019-07-05] MEDS ORDERED: ONDANSETRON 4MG/2ML VIAL (J2405 PER 1MG) IV PRN (00:15)
[2019-07-05] MEDS: OXAZEPAM 10 MG CAP PO PRN ×3 (01:33→18:24)
--- NOTE | 2019-07-05 02:59 | REP ---
Clinical: Shortness of breath . Comparison: 05/25/2018 . Technique: PA and lateral. Findings: The mediastinum and cardiac silhouette are normal. The lung hanley are clear and without acute consolidation, effusion, or pneumothorax. The skeletal structures are intact and normal. Impression: 1. No acute cardiopulmonary process. Electronically Signed by Arsenio Vogt MD 07/05/2019 02:51 A
[2019-07-05 06:00] VITALS: BP 110/70
[2019-07-05 06:28] VITALS: BP 110/70
[2019-07-05 06:38] LABS: BASO % 0.4 % (0.0-1.0); EOS # 0.1 10^3/uL (0.0-0.5); EOS % 1.5 % (0.0-3.0); HEMATOCRIT 36.1 % (36.0-47.0); HEMOGLOBIN 12.2 g/dl (12.0-15.5); LYMPH # 2.1 10^3/uL (1.5-5.0); LYMPH % 39.5 % (24.0-44.0); MEAN CORPUSCULAR HEMOGLOBIN 32.1 pg (27.0-33.0); MEAN CORPUSCULAR HGB CONC 33.8 g/dl (32.0-36.5); MONO # 0.3 10^3/uL (0.0-0.8); NEUTROPHILS # 2.8 10^3/uL (1.5-8.5); NEUTROPHILS % 52.4 % (36.0-66.0); PLATELET COUNT, AUTOMATED 145 10^3/uL (150-450); WHITE BLOOD COUNT 5.3 10^3/uL (4.0-10.0)
[2019-07-05] MEDS ORDERED: LORazepam 2 MG TAB PO PRN (07:00)
[2019-07-05 07:10] LABS: ALBUMIN 3.4 GM/DL (3.2-5.2); ALT/SGPT 71 U/L (12-78); BILIRUBIN,TOTAL 1.9 MG/DL (0.2-1.0); BLOOD UREA NITROGEN 3 MG/DL (7-18); CALCIUM LEVEL 8.5 MG/DL (8.5-10.1); CARBON DIOXIDE LEVEL 32 MEQ/L (21-32); CHLORIDE LEVEL 101 MEQ/L (98-107); CREATININE FOR GFR 0.45 MG/DL (0.55-1.30); GLOMERULAR FILTRATION RATE > 60.0 (>60); GLUCOSE, FASTING 79 MG/DL (70-100); POTASSIUM SERUM 3.6 MEQ/L (3.5-5.1); SODIUM LEVEL 137 MEQ/L (136-145); TOTAL PROTEIN 6.4 GM/DL (6.4-8.2)
[2019-07-05] MEDS ORDERED: POTASSIUM CHLORIDE 10 MEQ SR TABLET PO ONE (08:00)
[2019-07-05] MEDS: ENOXAPARIN 40MG/0.4ML SYRINGE (J1650 PER 10MG) SC SCH (09:23)
[2019-07-05 10:14] VITALS: BP 108/79
[2019-07-05] MEDS: MULTIVITAMINS/MINERALS THERAP 1 TAB PO SCH (10:32)
[2019-07-05] MEDS: CitaloPRAM (CeleXA) 20 MG TAB PO SCH (10:33)
[2019-07-05] MEDS: THIAMINE 200MG/2ML VIAL (J3411 PER 100MG) IV SCH (10:38)
[2019-07-05] MEDS: FOLIC ACID 1 MG in NS 50 ML IV SCH (10:46)
--- NOTE | 2019-07-05 10:50 | IPNPDOC ---
Text Note Date of Service The patient was seen on 07/05/19. NOTE Subjective: Patient complains of hands, chills. Stated that she had a general ized weakness. Patient denies fever, palpitations, chest pain, diarrhea or dysuria Objective: GENERAL: Anxious female with hands tremor Neck: PERRLA, EOMI, no JVD LUNGS: Clear to auscultation. No wheezing or rales. HEART: S1, S2, sinus tachycardia. ABDOMEN: Soft, nontender, nondistended. Positive bowel sounds times four quadrants. No rebound. No guarding. EXTREMITIES: No cyanosis, clubbing, or edema. Assessment and plan: Patient is 33 years old female with past medical history of alcohol dependence, depression, anxiety presented hospital with alcohol withdrawal. 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
[2019-07-05 14:00] VITALS: BP 105/73
[2019-07-05 14:28] VITALS: BP 105/73
[2019-07-05 22:00] VITALS: BP 107/74
[2019-07-06 05:40] VITALS: BP 117/82
[2019-07-06 05:41] LABS: BASO % 0.2 % (0.0-1.0); EOS # 0.1 10^3/uL (0.0-0.5); HEMATOCRIT 35.2 % (36.0-47.0); HEMOGLOBIN 11.5 g/dl (12.0-15.5); LYMPH # 1.5 10^3/uL (1.5-5.0); MEAN CORPUSCULAR HEMOGLOBIN 31.7 pg (27.0-33.0); MEAN CORPUSCULAR HGB CONC 32.7 g/dl (32.0-36.5); MONO # 0.3 10^3/uL (0.0-0.8); MONO % 7.4 % (0.0-5.0); NEUTROPHILS # 2.4 10^3/uL (1.5-8.5); NEUTROPHILS % 54.2 % (36.0-66.0); PLATELET COUNT, AUTOMATED 113 10^3/uL (150-450); RED BLOOD COUNT 3.63 10^6/uL (4.00-5.40); WHITE BLOOD COUNT 4.3 10^3/uL (4.0-10.0)
[2019-07-06 06:00] VITALS: BP 117/82
[2019-07-06 06:14] LABS: ALBUMIN 3.2 GM/DL (3.2-5.2); ALT/SGPT 68 U/L (12-78); BILIRUBIN,TOTAL 1.3 MG/DL (0.2-1.0); BLOOD UREA NITROGEN 6 MG/DL (7-18); CALCIUM LEVEL 8.4 MG/DL (8.5-10.1); CARBON DIOXIDE LEVEL 30 MEQ/L (21-32); CHLORIDE LEVEL 103 MEQ/L (98-107); CREATININE FOR GFR 0.42 MG/DL (0.55-1.30); GLOMERULAR FILTRATION RATE > 60.0 (>60); GLUCOSE, FASTING 79 MG/DL (70-100); MAGNESIUM LEVEL 1.9 MG/DL (1.8-2.4); POTASSIUM SERUM 3.7 MEQ/L (3.5-5.1); SODIUM LEVEL 137 MEQ/L (136-145); TOTAL PROTEIN 6.4 GM/DL (6.4-8.2)
[2019-07-06] MEDS ORDERED: POTASSIUM CHLORIDE 10 MEQ SR TABLET PO SCH (09:00)
[2019-07-06] MEDS: CitaloPRAM (CeleXA) 20 MG TAB PO SCH (10:11)
[2019-07-06] MEDS: MULTIVITAMINS/MINERALS THERAP 1 TAB PO SCH (10:11)
[2019-07-06] MEDS: FOLIC ACID 1 MG in NS 50 ML IV SCH (10:12)
[2019-07-06] MEDS: ENOXAPARIN 40MG/0.4ML SYRINGE (J1650 PER 10MG) SC SCH (10:12)
[2019-07-06] MEDS: THIAMINE 200MG/2ML VIAL (J3411 PER 100MG) IV SCH (10:57)
--- NOTE | 2019-07-06 13:24 | DS.PDOC ---
Discharge Summary General Date of Admission Jul 04, 2019 at 19:09 Date of Discharge 07/06/19 Discharge Summary PROCEDURES PERFORMED DURING STAY: [None]. ADMITTING DIAGNOSES: Alcohol withdrawal Active tobacco abuse Depression History of bariatric surgery DISCHARGE DIAGNOSES: Alcohol withdrawal Active tobacco abuse Depression History of bariatric surgery COMPLICATIONS/CHIEF COMPLAINT: Alcohol Dependence With Acute Alcoholic Intox. HISTORY OF PRESENT ILLNESS: A 33-year-old female with a history of alcohol abuse and multiple admissions for alcohol intoxication and withdrawal presented to the emergency room due to complaints of shaking, anxiety, restlessness since 10 a.m. this morning. Patient has not been eating well for the past 2 days. Has been drinking heavily, two 12-packs of beer. Last drink was 10 a.m. this morning. Says that she usually goes on a burrows and then gets sober for some time and then drinks again. Complained of increased diaphoresis, lightheadedness, unsteady gait, slight shortness of breath without any fever, chills, or cough. No exposure of COVID- positive patients. Had noted worsening withdrawal symptoms into the late morning. Presented to the emergency room (ER) for admission. Patient has not sought any alcohol rehabilitation program in the past and is not intersected in doing so. She denies any use of recreational drugs in the past or currently. In the ER she was found to be tachycardic, sinus at 136-140, afebrile, blood pressure 120 systolic. Hospitalist was called to admit for alcohol withdrawal symptoms. HOSPITAL COURSE: During hospital stay following issue addressed Alcohol withdrawal/alcohol dependence Patient received treatment with [facility] protocol Depression, continue home medication Sinus tachycardia Secondary to alcohol withdrawal, subsided after treatment Electrolytes imbalance Potassium replenished DISCHARGE MEDICATIONS: Please see below. ALLERGIES: Please see below. PHYSICAL EXAMINATION ON DISCHARGE: Objective: GENERAL: Anxious female with hands tremor Neck: PERRLA, EOMI, no JVD LUNGS: Clear to auscultation. No wheezing or rales. HEART: S1, S2, sinus tachycardia. ABDOMEN: Soft, nontender, nondistended. Positive bowel sounds times four quadrants. No rebound. No guarding. EXTREMITIES: No cyanosis, clubbing, or edema. LABORATORY DATA: Please see below. IMAGING: Comparison: 05/25/2018 . Technique: PA and lateral. Findings: The mediastinum and cardiac silhouette are normal. The lung hanley are clear an d without acute consolidation, effusion, or pneumothorax. The skeletal structures are intact and normal. Impression: 1. No acute cardiopulmonary process. Electronically Signed by Arsenio Vogt MD 07/05/2019 02:51 A DD: Arsenio Vogt MD 07/05/19249 DT: Jose Armando 07/05/19250 DS: BRITTON 07/05/1925007/05/19250 PROGNOSIS: Fair ACTIVITY: [As tolerated]. DIET: Regular DISPOSITION: 01 Home, Self-Care. DISCHARGE INSTRUCTIONS: Follow-up with PCP ITEMS TO FOLLOWUP ON ON OUTPATIENT: Patient will benefit from alcohol rehabilitation program DISCHARGE CONDITION: [Stable]. TIME SPENT ON DISCHARGE: Greater than 20 minutes. Vital Signs/I&Os Vital Signs Date Time Temp Pulse Resp B/P (MAP) Pulse Ox O2 Delivery O2 Flow Rate FiO2 07/06/19 06:00 98.1 91 18 117/82 (94) 98 Room Air I&O- Last 24 Hours up to 6 AM 07/06/19 06:00 Intake Total 820.4 ml Output Total 0 ml Balance 820.4 ml Laboratory Data Labs 24H Laboratory Tests 2 07/06/19 05:28: Immature Granulocyte % (Auto) 0.2, Neutrophils (%) (Auto) 54.2, Lymphocytes (%) (Auto) 35.0, Monocytes (%) (Auto) 7.4H, Eosinophils (%) (Auto) 3.0, Basophils (%) (Auto) 0.2, Neutrophils # (Auto) 2.4, Lymphocytes # (Auto) 1.5, Monocytes # (Auto) 0.3, Eosinophils # (Auto) 0.1, Basophils # (Auto) 0.0, Nucleated Red Blood Cells % (auto) 0.0, Anion Gap 4L, Glomerular Filtration Rate > 60.0, Calcium Level 8.4L, Magnesium Level 1.9, Total Bilirubin 1.3H, Aspartate Amino Transf (AST/SGOT) 77H, Alanine Aminotransferase (ALT/SGPT) 68, Alkaline Phosphatase 70, Total Protein 6.4, Albumin 3.2, Albumin/Globulin Ratio 1.00 CBC/BMP Laboratory Tests 07/06/19 05:28 Microbiology Microbiology 07/04/19 Respiratory Virus Panel (PCR) ([facility]) - Final, Complete Discharge Medications Scheduled Citalopram Hydrobromide (Citalopram HBr) 40 Mg Tablet, 40 MG PO DAILY, (Reported) Norethindrone AC-Eth Estradiol (Simone 21 1-20 Tablet) 1 Each Tablet, 1 TAB PO DAILY, (Reported) Allergies Coded Allergies: No Known Allergies (Unverified , 07/11/18) LUCIE ADAIR DO Jul 06, 2019 13:24
== END 2019-07-06 13:10 | disposition home or self-care (01) | DRG 775 ==
LOC: M ED 12:17 → EDBD 12:17 → M ED INP 19:09 → ENRESERV 21:11 → CANRESERV 21:11 → ENRESERVTM 21:47 → ENRESERVDT 21:47 → M MSPAV 22:26
PROVIDERS: ADMIT General Practice; ATTEND Internal Medicine
DX: F10.239 Alcohol dependence with withdrawal, unspecified (principal); F32.9 Major depressive disorder, single episode, unspecified; R26.81 Unsteadiness on feet; F41.9 Anxiety disorder, unspecified; F17.210 Nicotine dependence, cigarettes, uncomplicated; R00.0 Tachycardia, unspecified; Z98.84 Bariatric surgery status; Z79.899 Other long term (current) drug therapy

== ENCOUNTER 2019-07-27 18:14 | Emergency (ER) | payer OTHER ==
[~2019-07-27] VITALS: Ht 167.6 cm; Wt 68.5 kg
[2019-07-27] MEDS ORDERED: NS 1,000 ML IV ONE (18:45)
[2019-07-27 18:58] LABS: HEMATOCRIT 42.8 % (36.0-47.0); MEAN CORPUSCULAR HEMOGLOBIN 31.8 pg (27.0-33.0); MEAN CORPUSCULAR HGB CONC 32.7 g/dl (32.0-36.5); MEAN CORPUSCULAR VOLUME 97.3 fl (80.0-96.0); PLATELET COUNT, AUTOMATED 387 10^3/uL (150-450); WHITE BLOOD COUNT 6.3 10^3/uL (4.0-10.0)
[2019-07-27 19:23] LABS: HCG, SERUM QUALITATIVE NEGATIVE (NEGATIVE)
[2019-07-27 19:39] LABS: ACETAMINOPHEN LEVEL < 2.0 UG/ML (10.0-30.0); ALT/SGPT 61 U/L (12-78); BILIRUBIN,DIRECT < 0.1 MG/DL (0.0-0.2); BILIRUBIN,TOTAL 0.2 MG/DL (0.2-1.0); BLOOD UREA NITROGEN 3 MG/DL (7-18); CALCIUM LEVEL 9.1 MG/DL (8.5-10.1); CARBON DIOXIDE LEVEL 29 MEQ/L (21-32); CHLORIDE LEVEL 107 MEQ/L (98-107); CREATININE FOR GFR 0.48 MG/DL (0.55-1.30); ETHYL ALCOHOL (ETHANOL) 0.437 % (0.000-0.010); GLOMERULAR FILTRATION RATE > 60.0 (>60); GLUCOSE, FASTING 89 MG/DL (70-100); POTASSIUM SERUM 4.1 MEQ/L (3.5-5.1); SODIUM LEVEL 145 MEQ/L (136-145); TOTAL PROTEIN 7.7 GM/DL (6.4-8.2)
[2019-07-27 20:09] LABS: AMPHETAMINES LEVEL URINE NEGATIVE (NEGATIVE); BARBITURATES URINE NEGATIVE (NEGATIVE); BENZODIAZEPINES URINE NEGATIVE (NEGATIVE); CANNABINOIDS URINE NEGATIVE (NEGATIVE); COCAINE METABOLITE URINE NEGATIVE (NEGATIVE); METHADONE URINE NEGATIVE (NEGATIVE); OPIATES URINE NEGATIVE (NEGATIVE); PHENCYCLIDINE URINE NEGATIVE (NEGATIVE)
[2019-07-27 21:25] VITALS: BP 140/91
== END 2019-07-27 21:54 | disposition home or self-care (01) ==
LOC: M ED 18:14
DX: F10.10 Alcohol abuse, uncomplicated (principal); K75.9 Inflammatory liver disease, unspecified; Z98.84 Bariatric surgery status; Z79.899 Other long term (current) drug therapy; Z79.3 Long term (current) use of hormonal contraceptives; F17.210 Nicotine dependence, cigarettes, uncomplicated
CPT/HCPCS: 80048; 80076; 80307; 84443; 84703; 85027; 96360; 96361; 99284; G0480

== ENCOUNTER 2019-07-30 11:29 | Emergency (ER) | payer OTHER ==
[2019-07-30 11:59] LABS: BASO % 0.6 % (0.0-1.0); EOS % 0.6 % (0.0-3.0); HEMATOCRIT 42.2 % (36.0-47.0); HEMOGLOBIN 14.1 g/dl (12.0-15.5); LYMPH # 1.8 10^3/uL (1.5-5.0); LYMPH % 37.3 % (24.0-44.0); MEAN CORPUSCULAR HEMOGLOBIN 31.8 pg (27.0-33.0); MEAN CORPUSCULAR HGB CONC 33.4 g/dl (32.0-36.5); MONO # 0.4 10^3/uL (0.0-0.8); MONO % 7.1 % (0.0-5.0); NEUTROPHILS # 2.7 10^3/uL (1.5-8.5); NEUTROPHILS % 54.2 % (36.0-66.0); PLATELET COUNT, AUTOMATED 284 10^3/uL (150-450); RED BLOOD COUNT 4.44 10^6/uL (4.00-5.40); WHITE BLOOD COUNT 4.9 10^3/uL (4.0-10.0)
[2019-07-30 12:15] VITALS: BP 116/82
[2019-07-30 12:32] LABS: AMPHETAMINES LEVEL URINE NEGATIVE (NEGATIVE); BARBITURATES URINE NEGATIVE (NEGATIVE); BENZODIAZEPINES URINE NEGATIVE (NEGATIVE); CANNABINOIDS URINE NEGATIVE (NEGATIVE); COCAINE METABOLITE URINE NEGATIVE (NEGATIVE); METHADONE URINE NEGATIVE (NEGATIVE); OPIATES URINE NEGATIVE (NEGATIVE); PHENCYCLIDINE URINE NEGATIVE (NEGATIVE)
[2019-07-30 12:32] LABS: ACETAMINOPHEN LEVEL < 2.0 UG/ML (10.0-30.0); ALBUMIN 4.1 GM/DL (3.2-5.2); ALT/SGPT 61 U/L (12-78); BILIRUBIN,DIRECT 0.2 MG/DL (0.0-0.2); BILIRUBIN,TOTAL 0.5 MG/DL (0.2-1.0); BLOOD UREA NITROGEN 2 MG/DL (7-18); CALCIUM LEVEL 8.8 MG/DL (8.5-10.1); CARBON DIOXIDE LEVEL 28 MEQ/L (21-32); CHLORIDE LEVEL 108 MEQ/L (98-107); ETHYL ALCOHOL (ETHANOL) 0.363 % (0.000-0.010); GLOMERULAR FILTRATION RATE > 60.0 (>60); GLUCOSE, FASTING 94 MG/DL (70-100); POTASSIUM SERUM 3.8 MEQ/L (3.5-5.1); SALICYLATE LEVEL < 1.7 MG/DL (5.0-30.0); SODIUM LEVEL 143 MEQ/L (136-145); TOTAL PROTEIN 7.8 GM/DL (6.4-8.2)
== END 2019-07-30 14:08 | disposition home or self-care (01) ==
LOC: M ED 11:29 → EDBD 11:29 → M ED 14:08
DX: F10.129 Alcohol abuse with intoxication, unspecified (principal); I10 Essential (primary) hypertension; Z98.84 Bariatric surgery status; Z79.899 Other long term (current) drug therapy; Z79.3 Long term (current) use of hormonal contraceptives
CPT/HCPCS: 36415; 80048; 80076; 80307; 84443; 85025; 93041; 94760; 99285; G0480

== ENCOUNTER 2019-08-08 16:27 | Emergency (ER) | payer OTHER ==
[~2019-08-08] VITALS: Ht 167.6 cm; Wt 68.5 kg
[2019-08-08] MEDS ORDERED: LORazepam 2 MG/ML VIAL IV STA (16:43)
[2019-08-08 17:28] LABS: HEMATOCRIT 42.9 % (36.0-47.0); HEMOGLOBIN 14.5 g/dl (12.0-15.5); MEAN CORPUSCULAR HEMOGLOBIN 32.2 pg (27.0-33.0); MEAN CORPUSCULAR HGB CONC 33.8 g/dl (32.0-36.5); MEAN CORPUSCULAR VOLUME 95.3 fl (80.0-96.0); PLATELET COUNT, AUTOMATED 227 10^3/uL (150-450)
[2019-08-08 17:39] LABS: INR 1.15; PROTHROMBIN TIME 14.4 SECONDS (11.8-14.0)
[2019-08-08 17:46] LABS: HCG, SERUM QUALITATIVE NEGATIVE (NEGATIVE)
[2019-08-08 17:55] LABS: ALBUMIN 4.2 GM/DL (3.2-5.2); ALT/SGPT 105 U/L (12-78); BILIRUBIN,DIRECT 0.2 MG/DL (0.0-0.2); BILIRUBIN,TOTAL 0.3 MG/DL (0.2-1.0); BLOOD UREA NITROGEN 7 MG/DL (7-18); CALCIUM LEVEL 8.8 MG/DL (8.5-10.1); CARBON DIOXIDE LEVEL 29 MEQ/L (21-32); CHLORIDE LEVEL 105 MEQ/L (98-107); CREATININE FOR GFR 2.34 MG/DL (0.55-1.30); ETHYL ALCOHOL (ETHANOL) < 0.003 % (0.000-0.010); GLOMERULAR FILTRATION RATE 25.3 (>60); GLUCOSE, FASTING 149 MG/DL (70-100); POTASSIUM SERUM 3.5 MEQ/L (3.5-5.1); SODIUM LEVEL 142 MEQ/L (136-145); THYROID STIMULATING HORMONE 0.529 uIU/ML (0.358-3.740); TOTAL PROTEIN 8.1 GM/DL (6.4-8.2)
[2019-08-08] MEDS ORDERED: NS 1,000 ML IV ONE (18:15)
[2019-08-08 18:34] LABS: AMPHETAMINES LEVEL URINE NEGATIVE (NEGATIVE); BARBITURATES URINE NEGATIVE (NEGATIVE); BENZODIAZEPINES URINE POSITIVE (NEGATIVE); CANNABINOIDS URINE NEGATIVE (NEGATIVE); COCAINE METABOLITE URINE NEGATIVE (NEGATIVE); METHADONE URINE NEGATIVE (NEGATIVE); OPIATES URINE NEGATIVE (NEGATIVE); PHENCYCLIDINE URINE NEGATIVE (NEGATIVE)
[2019-08-08 18:36] LABS: ACETAMINOPHEN LEVEL < 2.0 UG/ML (10.0-30.0); SALICYLATE LEVEL 1.7 MG/DL (5.0-30.0)
[2019-08-08 18:54] LABS: MAGNESIUM LEVEL 2.3 MG/DL (1.8-2.4)
[2019-08-08 19:15] VITALS: BP 125/77
--- NOTE | 2019-08-08 21:17 | ECGEPIP ---
[facility] - ED Test Date: 2019-08-08 Pat Name: TAI ARAYA Department: Room: - Gender: Female Stave Grader: martha : 1985 Requested By: Demond Diana Order Number: [id number] Reading MD: Kym Linder Measurements Intervals [place] Rate: 124 P: 63 DE: 160 QRS: 67 QRSD: 93 T: 61 QT: 295 QTc: 424 Interpretive Statements SINUS TACHYCARDIA SEPTAL MYOCARDIAL INFARCTION, OF INDETERMINATE AGE NSTTW abnormalities INCREASED RATE 08/29/18 Electronically Signed on 08-08-2019 21:17:22 EDT by Kym Linder
== END 2019-08-08 19:46 | disposition left against medical advice (07) ==
LOC: EDBD 16:27 → EDSEX 16:27 → M ED 16:27
DX: N18.9 Chronic kidney disease, unspecified (principal); Z53.29 Procedure and treatment not carried out because of patient's decision for other reasons; F10.10 Alcohol abuse, uncomplicated; F17.210 Nicotine dependence, cigarettes, uncomplicated; Z98.84 Bariatric surgery status
CPT/HCPCS: 36415; 80048; 80076; 80307; 83735; 84443; 84703; 85027; 85610; 93005; 93041; 94760; 96360; 96375; 99285; G0480; J2060

== ENCOUNTER 2019-08-09 20:34 | Inpatient (IN) | payer OTHER ==
[~2019-08-09] VITALS: Ht 167.6 cm; Wt 67.4 kg
[2019-08-09 20:54] LABS: BASO % 0.3 % (0.0-1.0); HEMATOCRIT 36.8 % (36.0-47.0); LYMPH # 1.1 10^3/uL (1.5-5.0); LYMPH % 19.1 % (24.0-44.0); MEAN CORPUSCULAR HEMOGLOBIN 31.9 pg (27.0-33.0); MEAN CORPUSCULAR HGB CONC 33.7 g/dl (32.0-36.5); MEAN CORPUSCULAR VOLUME 94.6 fl (80.0-96.0); MONO # 0.9 10^3/uL (0.0-0.8); MONO % 15.5 % (0.0-5.0); NEUTROPHILS # 3.7 10^3/uL (1.5-8.5); NEUTROPHILS % 64.6 % (36.0-66.0); PLATELET COUNT, AUTOMATED 232 10^3/uL (150-450); RED BLOOD COUNT 3.89 10^6/uL (4.00-5.40); WHITE BLOOD COUNT 5.8 10^3/uL (4.0-10.0)
[2019-08-09] MEDS ORDERED: NS 1,000 ML IV ONE (21:00)
[2019-08-09] MEDS ORDERED: MULTIVITAMIN -ADULT INJECTION 10 ML, THIAMINE INJection 100 MG, FOLIC ACID 1 MG in NS 1... IV ONE (21:00)
[2019-08-09 21:01] LABS: HEMOGLOBIN 12.4 g/dl (12.0-15.5)
[2019-08-09 21:21] LABS: ALBUMIN 3.7 GM/DL (3.2-5.2); ALT/SGPT 72 U/L (12-78); BILIRUBIN,DIRECT 0.1 MG/DL (0.0-0.2); BILIRUBIN,TOTAL 0.3 MG/DL (0.2-1.0); BLOOD UREA NITROGEN 8 MG/DL (7-18); CALCIUM LEVEL 8.1 MG/DL (8.5-10.1); CARBON DIOXIDE LEVEL 26 MEQ/L (21-32); CHLORIDE LEVEL 103 MEQ/L (98-107); CREATININE FOR GFR 2.22 MG/DL (0.55-1.30); ETHYL ALCOHOL (ETHANOL) < 0.003 % (0.000-0.010); GLOMERULAR FILTRATION RATE 26.9 (>60); GLUCOSE, FASTING 135 MG/DL (70-100); POTASSIUM SERUM 2.9 MEQ/L (3.5-5.1); SODIUM LEVEL 139 MEQ/L (136-145); TOTAL PROTEIN 6.8 GM/DL (6.4-8.2)
[2019-08-09] MEDS ORDERED: PHENobarbital INJ 65 MG/ML VIAL (J2560) IV STA ×2 (21:24→23:30)
[2019-08-09] MEDS ORDERED: POTASSIUM CHLORIDE 10 MEQ SR TABLET PO ONE (21:30)
[2019-08-09 21:35] LABS: INR 1.21
[2019-08-09 21:36] LABS: PARTIAL THROMBOPLASTIN TIME 27.4 SECONDS (25.0-38.4)
[2019-08-10] VITALS (10 sets, daily range): BP systolic 108–146; BP diastolic 68–90
[2019-08-10] MEDS ORDERED: KCL 10MEQ/100ML SWI (KRUN) 10 MEQ in IV 1 EA IV ONE (01:00)
[2019-08-10] MEDS ORDERED: POTASSIUM CHLORIDE 10 MEQ SR TABLET PO SCH (01:00)
[2019-08-10] MEDS ORDERED: ACETAMINOPHEN TAB 650MG DOSE (2X325MG) PO PRN (01:00)
[2019-08-10] MEDS ORDERED: NS 1,000 ML IV SCH (01:00)
--- NOTE | 2019-08-10 01:39 | HPEPDOC ---
[facility] Medical History & Physical Date of Admission August 10, 2019 Date of Service: August 10, 2019 Attending Physician: Ava Corea MD History and Physical CHIEF COMPLAINT: alcohol withdrawal HISTORY OF PRESENT ILLNESS: Milton Beckford is a 33-year-old female who presented to the emergency room today with alcohol withdrawal. She was seen in the emergency room yesterday complaining of similar symptoms of withdrawal and noted to have acute kidney injury with creatinine elevated at 2.34. She was asked to stay to be admitted to the hospital, but the patient left AMA. She states she went home and drink more beer. She states she has been drinking at least a 12 pack of beer a day for the past 4-5 days. She also states she has not had much of any food intake over the course of the past 3-4 days. Currently, she complains of nausea, tremulousness, racing heart, alternating "hot and cold", and body aches. She denies any change in her urine output. PAST MEDICAL HISTORY: 1. Anxiety. 2. Depression. 3. Alcohol abuse. PAST SURGICAL HISTORY: 1. Bariatric surgery 2 years ago at [place]. SOCIAL HISTORY: Current smoker, states she smokes up to half a pack a day when drinking. Heavy alcohol use, states she drinks at least a 12 pack of beer a day. Denies illicit drug use. FAMILY HISTORY: Patient unsure of any family medical history. ALLERGIES: Please see below. REVIEW OF SYSTEMS: CONSTITUTIONAL: Endorses subjective fevers and chills alternating. Denies night sweats, fatigue, unexpected change in weight. HEENT: Denies change in vision, change in hearing. CARDIOVASCULAR: Denies chest pain, shortness of breath, lightheadedness. RESPIRATORY: Denies dyspnea, cough, wheezing. GASTROINTESTINAL: Endorses nausea. Denies vomiting, abdominal pain, diarrhea, constipation, blood in stool. GENITOURINARY: Denies dysuria, urinary frequency, urinary urgency. SKIN: Denies rash, lesions. MUSCULOSKELETAL: Endorses generalized body aches. Denies joint pain. NEUROLOGICAL: Denies dizziness, weakness. PSYCHIATRIC: Denies change in mood. HOME MEDICATIONS: Please see below. PHYSICAL EXAMINATION: VITAL SIGNS: See below GENERAL: Alert, in no acute distress, with notable tremors while resting com fortably in bed. HEENT: Normocephalic, atraumatic, PERRLA, EOMI, sclerae anicteric, moist mucous membranes NECK: Supple, trachea midline, no lymphadenopathy, no JVD CARDIOVASCULAR: Tachycardia with regular rhythm, normal S1 and S2. RESPIRATORY: Clear to auscultation bilaterally with equal air entry bilaterally. No wheezing, rhonchi, or rales. ABDOMEN: Soft, nontender, nondistended, bowel sounds present, no masses or hepatosplenomegaly appreciated EXTREMITIES: No cyanosis or edema. Pulses 2+/4 in bilateral upper and lower extremities SKIN: [place], warm, dry NEUROLOGIC: Alert and oriented 3 to person, place and time. No focal deficits appreciated PSYCHIATRIC: Mood and affect appropriate LABORATORY DATA: See below. MICROBIOLOGY: Please see below. ASSESSMENT: 33-year-old female with history of alcohol abuse with multiple ER visits and admissions for withdrawal, admitted for alcohol withdrawal and acute kidney injury. PLAN: 1. LEAH Creatinine elevated to 2.22, baseline appears to be approximately 0.5 Likely prerenal secondary to dehydration given her poor oral intake other than beer over the past few days. Status post 1 L IV fluid bolus in the ED, continue with IV fluids. Recheck BMP with AM labs. 2. Alcohol withdrawal Status post phenobarbital given in the ED CIWA protocol with Ativan prn. thiamine, folic acid and multivitamin supplementation Patient would like to go to detox after discharge, PFS consult placed to assist with resources 3. Sinus tachycardia Likely related to alcohol withdrawal. Monitor on telemetry. 4. Hypokalemia. Potassium repleted, recheck BMP with AM labs 5. Depression Continue home citalopram DVT prophylaxis: Subcutaneous heparin. Teds/SCDs. Disposition: Admitted inpatient to med/surg with telemetry, patient hoping to go to detox after discharge Vital Signs Vital Signs Date Time Temp Pulse Resp B/P (MAP) Pulse Ox O2 Delivery O2 Flow Rate FiO2 08/09/19 23:27 111 20 121/91 (101) 99 Room Air 08/09/19 20:46 97.4 Laboratory Data Labs 24H Laboratory Tests 2 08/09/19 20:44: Immature Granulocyte % (Auto) 0.5, Neutrophils (%) (Auto) 64.6, Lymphocytes (%) (Auto) 19.1L, Monocytes (%) (Auto) 15.5H, Eosinophils (%) (Auto) 0.0, Basophils (%) (Auto) 0.3, Neutrophils # (Auto) 3.7, Lymphocytes # (Auto) 1.1L, Monocytes # (Auto) 0.9H, Eosinophils # (Auto) 0.0, Basophils # (Auto) 0.0, Nucleated Red Blood Cells % (auto) 0.0, Anion Gap 10, Glomerular Filtration Rate 26.9L, Calcium Level 8.1L, Total Bilirubin 0.3, Direct Bilirubin 0.1, Aspartate Amino Transf (AST/SGOT) 45H, Alanine Aminotransferase (ALT/SGPT) 72, Alkaline Ph osphatase 61, Ammonia < 10, Total Protein 6.8, Albumin 3.7, Albumin/Globulin Ratio 1.2, Ethyl Alcohol Level < 0.003 08/09/19 21:11: Prothrombin Time 15.0H, Prothromb Time International Ratio 1.21, Activated Partial Thromboplast Time 27.4 CBC/BMP Laboratory Tests 08/09/19 20:44 Home Medications Scheduled Citalopram Hydrobromide (Citalopram HBr) 40 Mg Tablet, 40 MG PO DAILY Norethindrone AC-Eth Estradiol (Simone 21 1-20 Tablet) 1 Each Tablet, 1 TAB PO DAILY Allergies Coded Allergies: No Known Allergies (Unverified , 07/11/18) GME ATTESTATION GME ATTESTATION My faculty preceptor for this patient encounter was fully available. All aspects of the patient interview, examination, medical decision making process, and medical care plan development were reviewed and approved by the faculty preceptor. The faculty preceptor is aware and concurs with the plan as stated in the body of this note and will attest to such by his/her cosignature. ATTENDING NOTE HPI: 33 y/o F with PMH of alcohol abuse, tobacco use who presented to ER with increased HR (101-115), weakness, decreased PO intake. Patient signed out AMA from detox at [facility] within the last week, left AMA 08/08/2019 from our ER after being offered an admission for ETOH withdrawl. Presents today requesting admission and wanting rehabilitation after withdrawl is controlled. After leaving our ER on 08/08/2019 patient patient went home and drank beer, up to 10 beers, last drink today. Admits to tremoring, increased anxiety, nausea, vomiting, decreased appetite, decreased PO intake. Patient's Cr increased at 2.22, baseline 0.50. Denies hallucination, visual and auditory. PMH, PSURGHx, FamilyHx, SocialHx as mentioned in resident note above. PHYSICAL EXAMINATION: VITAL SIGNS: See above GENERAL: AAOx3, appears slightly anxious, tremoring. HEENT: AT/NC, PERRLA, EOMI, sclerae anicteric, moist mucous membranes NECK: Supple, no lymphadenopathy, no JVD CARDIOVASCULAR: Tachycardi, rhythm regular, S1/S2 +, no M/R/G RESPIRATORY: Clear to auscultation bilaterally, no W/R/R ABDOMEN: Soft, nontender, nondistended, BS in 4 quad, no masses or hepatosplenomegaly EXTREMITIES: No cyanosis, edema. Pulses present and 2+ in all extremities. No edema SKIN: Good skin turgor, no rashes NEUROLOGIC: AAOx3, No focal deficits PSYCHIATRIC: Mood and affect appropriate ASSESSMENT: 33 y/o F admitted for further treatment of alcohol withdrawl, acute kidney injury. PLAN: 1. Acute alcohol withdrawl. Ativan PRN, thiamine, folate, IVFs, MV, CIWA protocol. Monitor on tele. 2. Acute kidney injury likely prerenal 2/2 to dehydration. Cr 2.22, baseline 0.5. C/w IVFs. Monitor daily labs. 3. Hypokalemia 2/2 to decreased PO intake. Supplemented. F/u AM labs. 4. Depression. Denies homicidal, suicidal ideation. C/w citalopram CJ JACK D.O. August 10, 2019 01:39 Ava Corea MD August 10, 2019 03:00
[2019-08-10 03:13] LABS: AMPHETAMINES LEVEL URINE NEGATIVE (NEGATIVE); BARBITURATES URINE POSITIVE (NEGATIVE); BENZODIAZEPINES URINE NEGATIVE (NEGATIVE); CANNABINOIDS URINE NEGATIVE (NEGATIVE); COCAINE METABOLITE URINE NEGATIVE (NEGATIVE); METHADONE URINE NEGATIVE (NEGATIVE); OPIATES URINE NEGATIVE (NEGATIVE); PHENCYCLIDINE URINE NEGATIVE (NEGATIVE)
[2019-08-10] MEDS: LORazepam 2 MG TAB PO PRN ×4 (03:47→22:00)
[2019-08-10] MEDS: THIAMINE 100 MG TAB PO SCH ×3 (03:47→22:00)
[2019-08-10] MEDS: HEPARIN SOD (PORCINE) 5000UNITS/ML VIAL (J1644 PER 1000UNITS) SC SCH ×3 (05:16→22:00)
[2019-08-10 06:33] LABS: CALCIUM LEVEL 7.9 MG/DL (8.5-10.1); CREATININE FOR GFR 1.68 MG/DL (0.55-1.30); GLOMERULAR FILTRATION RATE 37.1 (>60); MAGNESIUM LEVEL 1.9 MG/DL (1.8-2.4); POTASSIUM SERUM 3.1 MEQ/L (3.5-5.1)
[2019-08-10] MEDS: MULTIVITAMINS/MINERALS THERAP 1 TAB PO SCH (08:14)
[2019-08-10] MEDS: CitaloPRAM (CeleXA) 20 MG TAB PO SCH (08:14)
[2019-08-10] MEDS: FOLIC ACID 1 MG TAB PO SCH (08:14)
[2019-08-10] MEDS: KCL 40MEQ in NS 1000ML 1,000 ML IV SCH ×2 (08:14→16:29)
--- NOTE | 2019-08-10 11:31 | IPNPDOC ---
Text Note Date of Service The patient was seen on 08/10/19. NOTE SUBJECTIVE: Still does not feel good, feels shakey. Wants to go to inpatient alcohol rehab. Tells me she just got out of [facility] a month ago. PHYSICAL EXAMINATION: VITAL SIGNS: See below GENERAL: Alert, in no acute distress, with notable tremors while resting comfor tably in bed. HEENT: Normocephalic, atraumatic, PERRLA, EOMI, sclerae anicteric, moist mucous membranes NECK: Supple, trachea midline, no lymphadenopathy, no JVD CARDIOVASCULAR: Tachycardia with regular rhythm, normal S1 and S2. RESPIRATORY: Clear to auscultation bilaterally with equal air entry bilaterally. No wheezing, rhonchi, or rales. ABDOMEN: Soft, nontender, nondistended, bowel sounds present, no masses or hepatosplenomegaly appreciated EXTREMITIES: No cyanosis or edema. Pulses 2+/4 in bilateral upper and lower extremities SKIN: [place], warm, dry NEUROLOGIC: Alert and oriented 3 to person, place and time. No focal deficits appreciated PSYCHIATRIC: Mood and affect appropriate ASSESSMENT: 33-year-old female with history of morbid obesity s/p bariatric surgery 2 years ago, anxiety, depression, alcohol abuse " goes on benders then stops for a few months then starts drinking again" with multiple ER visits and admissions for withdrawal, admitted for alcohol withdrawal and acute kidney injury. Alcohol withdrawal Status post phenobarbital given in the ED CIWA protocol with Ativan prn. thiamine, folic acid and multivitamin supplementation Patient would like to go to detox after discharge, PFS consult placed to assist with resources LEAH Likely prerenal secondary to dehydration given her poor oral intake other than beer over the past few days. continue IVF. Hypokalemia. continue replacement Depression Continue home citalopram DVT prophylaxis: Subcutaneous heparin. Teds/SCDs. VS,Fishbone, I+O VS, Fishbone, I+O Laboratory Tests 08/09/19 20:44 08/10/19 05:56 Vital Signs Date Time Temp Pulse Resp B/P (MAP) Pulse Ox O2 Delivery O2 Flow Rate FiO2 08/10/19 11:00 98.5 115 16 117/77 (90) 98 Room Air I&O- Last 24 Hours up to 6 AM 08/10/19 06:00 Intake Total 2760 ml Output Total 300 ml Balance 2460 ml RAY,GLORIA MD August 10, 2019 11:31
[2019-08-11 00:10] VITALS: BP 113/81
[2019-08-11] MEDS: KCL 40MEQ in NS 1000ML 1,000 ML IV SCH ×2 (00:21→08:40)
[2019-08-11 02:03] VITALS: BP 109/72
[2019-08-11] MEDS: HEPARIN SOD (PORCINE) 5000UNITS/ML VIAL (J1644 PER 1000UNITS) SC SCH (05:36)
[2019-08-11 06:00] VITALS: BP 110/73
[2019-08-11] MEDS: THIAMINE 100 MG TAB PO SCH (08:40)
[2019-08-11] MEDS: MULTIVITAMINS/MINERALS THERAP 1 TAB PO SCH (08:40)
[2019-08-11] MEDS: CitaloPRAM (CeleXA) 20 MG TAB PO SCH (08:40)
[2019-08-11] MEDS: FOLIC ACID 1 MG TAB PO SCH (08:40)
[2019-08-11] MEDS ORDERED: VITMTA PO (08:53)
[2019-08-11] MEDS ORDERED: FOLI1TAB11 PO (08:53)
[2019-08-11] MEDS ORDERED: OXAZ10CA3 PO (08:53)
[2019-08-11] MEDS ORDERED: THIA100TA PO (08:53)
[2019-08-11 09:23] LABS: BASO % 0.2 % (0.0-1.0); EOS # 0.1 10^3/uL (0.0-0.5); EOS % 1.6 % (0.0-3.0); HEMATOCRIT 34.1 % (36.0-47.0); HEMOGLOBIN 11.2 g/dl (12.0-15.5); LYMPH % 45.2 % (24.0-44.0); MEAN CORPUSCULAR HEMOGLOBIN 32.5 pg (27.0-33.0); MEAN CORPUSCULAR HGB CONC 32.8 g/dl (32.0-36.5); MEAN CORPUSCULAR VOLUME 98.8 fl (80.0-96.0); MONO # 0.6 10^3/uL (0.0-0.8); MONO % 13.9 % (0.0-5.0); NEUTROPHILS # 1.7 10^3/uL (1.5-8.5); NEUTROPHILS % 38.9 % (36.0-66.0); PLATELET COUNT, AUTOMATED 231 10^3/uL (150-450); RED BLOOD COUNT 3.45 10^6/uL (4.00-5.40); WHITE BLOOD COUNT 4.3 10^3/uL (4.0-10.0)
[2019-08-11 10:10] VITALS: BP 126/86
[2019-08-11 10:11] LABS: CALCIUM LEVEL 8.4 MG/DL (8.5-10.1); CREATININE FOR GFR 1.15 MG/DL (0.55-1.30); GLOMERULAR FILTRATION RATE 57.5 (>60); MAGNESIUM LEVEL 2.1 MG/DL (1.8-2.4); POTASSIUM SERUM 3.6 MEQ/L (3.5-5.1)
[2019-08-11] MEDS ORDERED: OXAZEPAM 10 MG CAP PO ONE (11:00)
--- NOTE | 2019-08-11 11:12 | DS.PDOC ---
Discharge Summary General Date of Admission August 10, 2019 at 02:14 Date of Discharge 08/11/19 Discharge Summary PROCEDURES PERFORMED DURING STAY: [None]. DISCHARGE DIAGNOSES: Alcohol use disorder with Alcohol withdrawal LEAH hypokalemia depression. COMPLICATIONS/CHIEF COMPLAINT: Alcohol Withdrawl. HISTORY OF PRESENT ILLNESS: See history and physical HOSPITAL COURSE: 33-year-old female with history of morbid obesity s/p bariatric surgery 2 years ago, anxiety, depression, alcohol abuse " goes on joseph ders then stops for a few months then starts drinking again" with multiple ER visits and admissions for withdrawal, admitted for alcohol withdrawal and acute kidney injury. Alcohol use disorder presented with Alcohol withdrawal resolved. Serax taper, thiamine, folic acid and multivitamin supplementation Patient would like to go to detox after discharge. SHe has an appointment at the [facility] rehab today. LEAH Likely prerenal secondary to dehydration given her poor oral intake other than beer over the past few days. now resolved Hypokalemia. continue replacement Depression Continue home citalopram DVT prophylaxis: Subcutaneous heparin. Teds/SCDs. DISCHARGE MEDICATIONS: Please see below. ALLERGIES: Please see below. PHYSICAL EXAMINATION ON DISCHARGE: VITAL SIGNS: Please see below. GENERAL: Alert, in no acute distress, with notable tremors while resting comfortably in bed. HEENT: Normocephalic, atraumatic, PERRLA, EOMI, sclerae anicteric, moist mucous membranes NECK: Supple, trachea midline, no lymphadenopathy, no JVD CARDIOVASCULAR: Tachycardia with regular rhythm, normal S1 and S2. RESPIRATORY: Clear to auscultation bilaterally with equal air entry bilaterally. No wheezing, rhonchi, or rales. ABDOMEN: Soft, nontender, nondistended, bowel sounds present, no masses or he patosplenomegaly appreciated EXTREMITIES: No cyanosis or edema. Pulses 2+/4 in bilateral upper and lower extremities SKIN: [place], warm, dry NEUROLOGIC: Alert and oriented 3 to person, place and time. No focal deficits appreciated PSYCHIATRIC: Mood and affect appropriate LABORATORY DATA: Please see below. ACTIVITY: [As tolerated]. DIET: regular DISPOSITION: 01 Home, Self-Care. DISCHARGE INSTRUCTIONS: Follow up with PMD in 2weeks Referral given to alcohol and drug rehab. DISCHARGE CONDITION: [Stable]. TIME SPENT ON DISCHARGE: 35 minutes. Vital Signs/I&Os Vital Signs Date Time Temp Pulse Resp B/P (MAP) Pulse Ox O2 Delivery O2 Flow Rate FiO2 08/11/19 10:10 128 126/86 08/11/19 06:00 98.0 17 96 Room Air I&O- Last 24 Hours up to 6 AM 08/11/19 05:59 Intake Total 4035 ml Output Total 1975 ml Balance 2060 ml Laboratory Data Labs 24H Laboratory Tests 2 08/11/19 09:12: Immature Granulocyte % (Auto) 0.2, Neutrophils (%) (Auto) 38.9, Lymphocytes (%) (Auto) 45.2H, Monocytes (%) (Auto) 13.9H, Eosinophils (%) (Auto) 1.6, Basophils (%) (Auto) 0.2, Neutrophils # (Auto) 1.7, Lymphocytes # (Auto) 2.0, Monocytes # (Auto) 0.6, Eosinophils # (Auto) 0.1, Basophils # (Auto) 0.0, Nucleated Red Blood Cells % (auto) 0.0, Anion Gap 7L, Glomerular Filtration Rate 57.5L, Calcium Level 8.4L, Magnesium Level 2.1 CBC/BMP Laboratory Tests 08/11/19 09:12 Discharge Medications Scheduled Citalopram Hydrobromide (Citalopram HBr) 40 Mg Tablet, 40 MG PO DAILY, (Reported) Folic Acid (Folic Acid) 1 Mg Tablet, 1 MG PO DAILY Multivitamins (Thera M Plus Tablet) 1 Each Tablet, 1 TAB PO DAILY Norethindrone AC-Eth Estradiol (Simone 21 1-20 Tablet) 1 Each Tablet, 1 TAB PO DAILY, (Reported) Oxazepam (Oxazepam) 10 Mg Capsule, 10 MG PO ASDIRECTED 1 tab tid for 1 day then 1 tab bid for 1 day then 1 tab daily x 1 day Thiamine Hcl (Vitamin B-1) 100 Mg Tablet, 100 MG PO BID Allergies Coded Allergies: No Known Allergies (Unverified , 07/11/18) GLORIA HERNANDEZ MD August 11, 2019 11:12
[2019-08-11] MEDS ORDERED: OXAZEPAM 10 MG CAP PO SCH (16:00)
== END 2019-08-11 10:48 | disposition home or self-care (01) | DRG 775 ==
LOC: EDBD 20:34 → M ED 20:34 → M ED INP 08-10 02:14 → ENRESERV 08-10 02:35 → M MSPAV 08-10 03:10
PROVIDERS: ADMIT Internal Medicine; ATTEND Internal Medicine Nephrology
DX: F10.239 Alcohol dependence with withdrawal, unspecified (principal); N17.9 Acute kidney failure, unspecified; E87.6 Hypokalemia; F32.9 Major depressive disorder, single episode, unspecified; R00.0 Tachycardia, unspecified; E86.0 Dehydration; F17.200 Nicotine dependence, unspecified, uncomplicated; Z98.84 Bariatric surgery status

== ENCOUNTER 2019-08-16 18:16 | Observation (INO) | payer OTHER ==
[~2019-08-16] VITALS: Ht 167.6 cm; Wt 68.9 kg
[~2019-08-16 18:16] MED LIST changes: +OXAZ10CA3 PO; +THIA100TA PO
[2019-08-16 18:40] LABS: VENOUS BASE EXCESS 4.8 (-2.0-2.0); VENOUS O2 SATURATION 60.1 % (60.0-80.0); VENOUS PARTIAL PRESSURE CO2 41.4 mmHg (38.0-50.0); VENOUS PARTIAL PRESSURE O2 31.5 mmHg (30.0-50.0); VENOUS PH 7.464 UNITS (7.330-7.430); VENOUS STANDARD HCO3 27.9 MEQ/L; VENOUS TOTAL CO2 30.3 MEQ/L (24.0-28.0)
[2019-08-16 18:41] LABS: BASO % 0.6 % (0.0-1.0); EOS % 0.2 % (0.0-3.0); HEMATOCRIT 38.7 % (36.0-47.0); HEMOGLOBIN 12.8 g/dl (12.0-15.5); LYMPH # 1.7 10^3/uL (1.5-5.0); LYMPH % 27.1 % (24.0-44.0); MEAN CORPUSCULAR HGB CONC 33.1 g/dl (32.0-36.5); MEAN CORPUSCULAR VOLUME 96.8 fl (80.0-96.0); MONO # 0.5 10^3/uL (0.0-0.8); MONO % 7.1 % (0.0-5.0); NEUTROPHILS # 4.1 10^3/uL (1.5-8.5); NEUTROPHILS % 64.5 % (36.0-66.0); PLATELET COUNT, AUTOMATED 534 10^3/uL (150-450); WHITE BLOOD COUNT 6.4 10^3/uL (4.0-10.0)
[2019-08-16 19:08] LABS: OSMOLALITY SERUM 345 MOSM/KG (275-295)
[2019-08-16 19:09] LABS: HCG, SERUM QUALITATIVE NEGATIVE (NEGATIVE)
[2019-08-16 19:20] LABS: ACETAMINOPHEN LEVEL < 2.0 UG/ML (10.0-30.0); ALBUMIN 3.5 GM/DL (3.2-5.2); ALT/SGPT 68 U/L (12-78); BILIRUBIN,DIRECT < 0.1 MG/DL (0.0-0.2); BILIRUBIN,TOTAL 0.2 MG/DL (0.2-1.0); BLOOD UREA NITROGEN 6 MG/DL (7-18); CALCIUM LEVEL 8.7 MG/DL (8.5-10.1); CARBON DIOXIDE LEVEL 29 MEQ/L (21-32); CHLORIDE LEVEL 105 MEQ/L (98-107); CPK CREATINE PHOSPHOKINASE 151 U/L (26-192); CREATININE FOR GFR 2.38 MG/DL (0.55-1.30); ETHYL ALCOHOL (ETHANOL) < 0.003 % (0.000-0.010); GLOMERULAR FILTRATION RATE 24.8 (>60); GLUCOSE, FASTING 124 MG/DL (70-100); POTASSIUM SERUM 3.7 MEQ/L (3.5-5.1); SALICYLATE LEVEL < 1.7 MG/DL (5.0-30.0); SODIUM LEVEL 145 MEQ/L (136-145); THYROID STIMULATING HORMONE 0.719 uIU/ML (0.358-3.740); TOTAL PROTEIN 6.6 GM/DL (6.4-8.2)
[2019-08-16] MEDS ORDERED: NS 1,000 ML IV ONE ×2 (19:30→21:30)
[2019-08-16 19:33] LABS: ACETONE/KETONE 1.49 MG/DL (<2.81)
--- NOTE | 2019-08-16 19:38 | REP ---
Clinical: Drug overdose . Comparison: 07/04/2019 . Findings: The mediastinum and cardiac silhouette are stable and within normal limits for portable technique. The lung hanley are clear without acute consolidation, effusion, or pneumothorax. Skeletal structures are intact. Impression: No acute cardiopulmonary process appreciated. Electronically Signed by Arsenio Vogt MD 08/16/2019 07:30 P
[2019-08-16 20:11] LABS: APPEARANCE, URINE HAZY (CLEAR); BACTERIA, URINE AUTO 2+ (NEGATIVE); BILIRUBIN, URINE AUTO NEGATIVE (NEGATIVE); BLOOD, URINE BLOOD NEGATIVE (NEGATIVE); COLOR, URINE YELLOW (YELLOW); GLUCOSE, URINE (UA) AUTO NEGATIVE (NEGATIVE); KETONE, URINE AUTO 1+ mg/dL (NEGATIVE); LEUKOCYTE ESTERASE, URINE AUTO NEGATIVE (NEGATIVE); MUCUS, URINE SMALL (NEGATIVE); NITRITE, URINE AUTO NEGATIVE (NEGATIVE); PROTEIN, URINE AUTO NEGATIVE (NEGATIVE); RBC, URINE AUTO 3 /HPF (0-3); SQUAMOUS EPITHELIAL CELL UR AU 2 /HPF (0-6); UROBILINOGEN, URINE AUTO 0.2 mg/dL (0.0-2.0); WBC, URINE AUTO 2 /HPF (0-3)
[2019-08-16 20:39] LABS: AMPHETAMINES LEVEL URINE NEGATIVE (NEGATIVE); BARBITURATES URINE POSITIVE (NEGATIVE); BENZODIAZEPINES URINE POSITIVE (NEGATIVE); CANNABINOIDS URINE NEGATIVE (NEGATIVE); COCAINE METABOLITE URINE NEGATIVE (NEGATIVE); METHADONE URINE NEGATIVE (NEGATIVE); OPIATES URINE NEGATIVE (NEGATIVE); PHENCYCLIDINE URINE NEGATIVE (NEGATIVE)
[2019-08-16] MEDS: THIAMINE 100 MG TAB PO SCH (21:00)
--- NOTE | 2019-08-16 21:16 | ECGEPIP ---
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
[2019-08-16] MEDS ORDERED: ACETAMINOPHEN TAB 650MG DOSE (2X325MG) PO PRN (23:00)
[2019-08-16 23:18] LABS: ALBUMIN 3.1 GM/DL (3.2-5.2); ALT/SGPT 57 U/L (12-78); BILIRUBIN,DIRECT < 0.1 MG/DL (0.0-0.2); BILIRUBIN,TOTAL 0.2 MG/DL (0.2-1.0); BLOOD UREA NITROGEN 5 MG/DL (7-18); CALCIUM LEVEL 7.9 MG/DL (8.5-10.1); CARBON DIOXIDE LEVEL 29 MEQ/L (21-32); CHLORIDE LEVEL 108 MEQ/L (98-107); CREATININE FOR GFR 2.02 MG/DL (0.55-1.30); GLUCOSE, FASTING 98 MG/DL (70-100); POTASSIUM SERUM 3.6 MEQ/L (3.5-5.1); SODIUM LEVEL 146 MEQ/L (136-145); TOTAL PROTEIN 5.7 GM/DL (6.4-8.2)
[2019-08-16] MEDS: NS 1,000 ML IV SCH (23:28)
[2019-08-17] VITALS (10 sets, daily range): BP systolic 104–123; BP diastolic 62–73
[2019-08-17] MEDS: LORazepam 2 MG TAB PO PRN ×5 (02:11→22:30)
[2019-08-17] MEDS: NS 1,000 ML IV SCH ×3 (02:11→16:21)
[2019-08-17] MEDS: HEPARIN SOD (PORCINE) 5000UNITS/ML VIAL (J1644 PER 1000UNITS) SC SCH ×3 (04:36→22:00)
[2019-08-17 05:31] LABS: CREATININE FOR GFR 1.83 MG/DL (0.55-1.30); GLOMERULAR FILTRATION RATE 33.6 (>60); POTASSIUM SERUM 3.5 MEQ/L (3.5-5.1)
[2019-08-17] MEDS: MULTIVITAMINS/MINERALS THERAP 1 TAB PO SCH (09:34)
[2019-08-17] MEDS: THIAMINE 100 MG TAB PO SCH ×2 (09:34→20:42)
[2019-08-17] MEDS: FOLIC ACID 1 MG TAB PO SCH (09:34)
--- NOTE | 2019-08-17 11:56 | IPNPDOC ---
Text Note Date of Service The patient was seen on 08/17/19. NOTE Subjective: Patient alert, oriented in the morning, she has not any recollection of what she did drink yesterday. Objective: VITAL SIGNS: Please see below. GENERAL: awake, alert, NAD HEENT: NCAT, anicteric sclera, MIKAEL NECK: supple, no JVD CARDIOVASCULAR EXAMINATION: NS1S2, regular rate/rhythm RESPIRATORY EXAMINATION: CTA b/l, no wheezes/rales/rhonchi ABDOMINAL EXAMINATION: positive bowel sounds x 4, NT EXTREMITIES: no cyanosis, clubbing, edema SKIN: warm, no rashes. 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 Possible isopropyl alcohol, possible other substances Her boyfriend stated that patient drank rubbing alcohol yesterday Isopropanol level in the urine pending Continue hydration Appreciate/agree with psych consult LEAH Most likely prerenal secondary to dehydration Continue IV fluid, continue to monitor Depression/anxiety Psych evaluation VS,Ewa, I+O VS, [place], I+O Laboratory Tests 08/16/19 18:28 08/16/19 18:29 08/16/19 22:35 08/17/19 04:34 Vital Signs Date Time Temp Pulse Resp B/P (MAP) Pulse Ox O2 Delivery O2 Flow Rate FiO2 08/17/19 08:00 98 115/62 08/17/19 07:37 97.9 18 96 Room Air I&O- Last 24 Hours up to 6 AM 08/17/19 06:00 Intake Total 2900 ml Output Total 0 ml Balance 2900 ml LUCIE ADAIR DO August 17, 2019 11:56
[2019-08-17 13:51] LABS: ALBUMIN 2.9 GM/DL (3.2-5.2); BILIRUBIN,TOTAL 0.2 MG/DL (0.2-1.0); CALCIUM LEVEL 8.1 MG/DL (8.5-10.1); CREATININE FOR GFR 1.56 MG/DL (0.55-1.30); GLOMERULAR FILTRATION RATE 40.4 (>60); POTASSIUM SERUM 3.5 MEQ/L (3.5-5.1); TOTAL PROTEIN 5.3 GM/DL (6.4-8.2)
[2019-08-18] VITALS (9 sets, daily range): BP systolic 97–126; BP diastolic 4–79
[2019-08-18] MEDS ORDERED: PERCOCET 5MG/325MG TAB PO ONE (00:30)
[2019-08-18] MEDS: NS 1,000 ML IV SCH (01:40)
[2019-08-18] MEDS: HEPARIN SOD (PORCINE) 5000UNITS/ML VIAL (J1644 PER 1000UNITS) SC SCH ×3 (05:06→21:11)
[2019-08-18 06:29] LABS: ALBUMIN 2.5 GM/DL (3.2-5.2); ALT/SGPT 46 U/L (12-78); BILIRUBIN,TOTAL 0.1 MG/DL (0.2-1.0); BLOOD UREA NITROGEN 5 MG/DL (7-18); CALCIUM LEVEL 7.6 MG/DL (8.5-10.1); CARBON DIOXIDE LEVEL 27 MEQ/L (21-32); CHLORIDE LEVEL 113 MEQ/L (98-107); CREATININE FOR GFR 1.05 MG/DL (0.55-1.30); GLOMERULAR FILTRATION RATE > 60.0 (>60); GLUCOSE, FASTING 81 MG/DL (70-100); MAGNESIUM LEVEL 1.8 MG/DL (1.8-2.4); POTASSIUM SERUM 3.4 MEQ/L (3.5-5.1); SODIUM LEVEL 147 MEQ/L (136-145)
[2019-08-18] MEDS: D5W/0.45% SODIUM CHLORIDE 1,000 ML IV SCH ×2 (07:55→15:12)
[2019-08-18] MEDS ORDERED: POTASSIUM CHLORIDE 10 MEQ SR TABLET PO ONE ×2 (09:00→17:00)
[2019-08-18] MEDS: MULTIVITAMINS/MINERALS THERAP 1 TAB PO SCH (09:45)
[2019-08-18] MEDS: FOLIC ACID 1 MG TAB PO SCH (09:45)
[2019-08-18] MEDS: THIAMINE 100 MG TAB PO SCH ×2 (09:46→21:11)
--- NOTE | 2019-08-18 10:03 | IPNPDOC ---
Text Note Date of Service The patient was seen on 08/18/19. NOTE Subjective: Patient alert, oriented in the morning, patient complains of gene ralized weakness. Objective: VITAL SIGNS: Please see below. GENERAL: awake, alert, NAD HEENT: NCAT, anicteric sclera, MIKAEL NECK: supple, no JVD CARDIOVASCULAR EXAMINATION: NS1S2, regular rate/rhythm RESPIRATORY EXAMINATION: CTA b/l, no wheezes/rales/rhonchi ABDOMINAL EXAMINATION: positive bowel sounds x 4, NT EXTREMITIES: no cyanosis, clubbing, edema SKIN: warm, no rashes. 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 Possible isopropyl alcohol, possible other substances Her boyfriend stated that patient drank rubbing alcohol Isopropanol level in the urine pending Continue hydration LEAH Improved Most likely prerenal secondary to dehydration Continue IV fluid, continue to monitor Depression/anxiety According to psych team patient will be transferred to mental health unit after initial stabilization Electrolytes imbalance Potassium replaced VS,Fishbone, I+O VS, Fishbone, I+O Laboratory Tests 08/17/19 12:11 08/18/19 05:45 Vital Signs Date Time Temp Pulse Resp B/P (MAP) Pulse Ox O2 Delivery O2 Flow Rate FiO2 08/18/19 07:26 97.8 81 18 107/66 (80) 95 Room Air I&O- Last 24 Hours up to 6 AM 08/18/19 06:00 Intake Total 3010 ml Output Total 600 ml Balance 2410 ml LUCIE ADAIR DO August 18, 2019 10:03
[2019-08-18] MEDS ORDERED: LORazepam 1 MG TAB PO ONE (12:00)
[2019-08-18] MEDS: CitaloPRAM (CeleXA) 20 MG TAB PO SCH (12:53)
[2019-08-18 15:31] LABS: BLOOD UREA NITROGEN 3 MG/DL (7-18); CALCIUM LEVEL 7.8 MG/DL (8.5-10.1); CARBON DIOXIDE LEVEL 28 MEQ/L (21-32); CHLORIDE LEVEL 111 MEQ/L (98-107); CREATININE FOR GFR 1.01 MG/DL (0.55-1.30); GLOMERULAR FILTRATION RATE > 60.0 (>60); GLUCOSE, FASTING 120 MG/DL (70-100); POTASSIUM SERUM 3.4 MEQ/L (3.5-5.1); SODIUM LEVEL 143 MEQ/L (136-145)
[2019-08-18] MEDS: D5W 1,000 ML IV SCH (16:31)
[2019-08-19] VITALS: BP 99/61
[2019-08-19] MEDS ORDERED: RAMELTEON 8 MG TAB (ROZEREM) PO PRN (00:15)
[2019-08-19] MEDS: D5W 1,000 ML IV SCH ×3 (00:43→16:36)
[2019-08-19 04:00] VITALS: BP 91/59
[2019-08-19] MEDS: HEPARIN SOD (PORCINE) 5000UNITS/ML VIAL (J1644 PER 1000UNITS) SC SCH ×3 (05:17→21:27)
[2019-08-19 05:42] LABS: BASO % 1.1 % (0.0-1.0); EOS # 0.1 10^3/uL (0.0-0.5); EOS % 2.1 % (0.0-3.0); HEMATOCRIT 30.6 % (36.0-47.0); HEMOGLOBIN 9.8 g/dl (12.0-15.5); LYMPH # 2.2 10^3/uL (1.5-5.0); LYMPH % 58.4 % (24.0-44.0); MEAN CORPUSCULAR HEMOGLOBIN 31.9 pg (27.0-33.0); MEAN CORPUSCULAR VOLUME 99.7 fl (80.0-96.0); MONO # 0.5 10^3/uL (0.0-0.8); MONO % 12.3 % (0.0-5.0); NEUTROPHILS % 25.8 % (36.0-66.0); PLATELET COUNT, AUTOMATED 301 10^3/uL (150-450); RED BLOOD COUNT 3.07 10^6/uL (4.00-5.40); WHITE BLOOD COUNT 3.7 10^3/uL (4.0-10.0)
[2019-08-19 06:10] LABS: BLOOD UREA NITROGEN 2 MG/DL (7-18); CALCIUM LEVEL 7.9 MG/DL (8.5-10.1); CARBON DIOXIDE LEVEL 29 MEQ/L (21-32); CHLORIDE LEVEL 109 MEQ/L (98-107); GLOMERULAR FILTRATION RATE > 60.0 (>60); GLUCOSE, FASTING 109 MG/DL (70-100); MAGNESIUM LEVEL 1.9 MG/DL (1.8-2.4); POTASSIUM SERUM 3.8 MEQ/L (3.5-5.1); SODIUM LEVEL 144 MEQ/L (136-145)
[2019-08-19 08:00] VITALS: BP 99/59
[2019-08-19] MEDS: CitaloPRAM (CeleXA) 20 MG TAB PO SCH (08:03)
[2019-08-19] MEDS: FOLIC ACID 1 MG TAB PO SCH (08:03)
[2019-08-19] MEDS: MULTIVITAMINS/MINERALS THERAP 1 TAB PO SCH (08:03)
[2019-08-19] MEDS: THIAMINE 100 MG TAB PO SCH (08:03)
--- NOTE | 2019-08-19 11:55 | IPNPDOC ---
Text Note Date of Service The patient was seen on 08/19/19. NOTE Subjective: Patient alert, oriented in the morning. No any acute events overn ight Objective: VITAL SIGNS: Please see below. GENERAL: awake, alert, NAD HEENT: NCAT, anicteric sclera, MIKAEL NECK: supple, no JVD CARDIOVASCULAR EXAMINATION: NS1S2, regular rate/rhythm RESPIRATORY EXAMINATION: CTA b/l, no wheezes/rales/rhonchi ABDOMINAL EXAMINATION: positive bowel sounds x 4, NT EXTREMITIES: no cyanosis, clubbing, edema SKIN: warm, no rashes. 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 Possible isopropyl alcohol, possible other substances Her boyfriend stated that patient drank rubbing alcohol Isopropanol level in the urine pending Continue hydration LEAH Improved Most likely prerenal secondary to dehydration Continue IV fluid, continue to monitor Depression/anxiety According to psych team patient will be transferred to mental health unit after initial stabilization Electrolytes imbalance Potassium replaced VS,Fishbone, I+O VS, Fishbone, I+O Laboratory Tests 08/18/19 14:45 08/19/19 05:18 Vital Signs Date Time Temp Pulse Resp B/P (MAP) Pulse Ox O2 Delivery O2 Flow Rate FiO2 08/19/19 08:00 97.7 65 18 99/59 (72) 96 Room Air I&O- Last 24 Hours up to 6 AM 08/19/19 06:00 Intake Total 150 ml Output Total 1800 ml Balance -1650 ml LUCIE ADAIR DO August 19, 2019 11:55
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
[2019-08-19 14:05] VITALS: BP 116/70
[2019-08-19] MEDS ORDERED: LORazepam 1 MG TAB PO ONE (15:00)
[2019-08-19] MEDS ORDERED: LORazepam 1 MG TAB PO STA (21:08)
[2019-08-19 22:00] VITALS: BP 115/70
[2019-08-20] MEDS: D5W 1,000 ML IV SCH ×2 (02:21→09:55)
[2019-08-20] MEDS: HEPARIN SOD (PORCINE) 5000UNITS/ML VIAL (J1644 PER 1000UNITS) SC SCH ×2 (05:41→14:00)
[2019-08-20 06:00] VITALS: BP 111/70
[2019-08-20 06:30] LABS: BASO % 0.7 % (0.0-1.0); EOS # 0.1 10^3/uL (0.0-0.5); EOS % 2.2 % (0.0-3.0); HEMATOCRIT 34.8 % (36.0-47.0); HEMOGLOBIN 11.3 g/dl (12.0-15.5); LYMPH # 2.3 10^3/uL (1.5-5.0); LYMPH % 56.1 % (24.0-44.0); MEAN CORPUSCULAR HEMOGLOBIN 32.6 pg (27.0-33.0); MEAN CORPUSCULAR HGB CONC 32.5 g/dl (32.0-36.5); MEAN CORPUSCULAR VOLUME 100.3 fl (80.0-96.0); MONO # 0.4 10^3/uL (0.0-0.8); MONO % 9.4 % (0.0-5.0); NEUTROPHILS # 1.3 10^3/uL (1.5-8.5); NEUTROPHILS % 31.4 % (36.0-66.0); PLATELET COUNT, AUTOMATED 362 10^3/uL (150-450); RED BLOOD COUNT 3.47 10^6/uL (4.00-5.40); WHITE BLOOD COUNT 4.2 10^3/uL (4.0-10.0)
[2019-08-20 06:55] LABS: BLOOD UREA NITROGEN 3 MG/DL (7-18); CALCIUM LEVEL 8.6 MG/DL (8.5-10.1); CARBON DIOXIDE LEVEL 32 MEQ/L (21-32); CHLORIDE LEVEL 105 MEQ/L (98-107); CREATININE FOR GFR 0.67 MG/DL (0.55-1.30); GLOMERULAR FILTRATION RATE > 60.0 (>60); GLUCOSE, FASTING 94 MG/DL (70-100); POTASSIUM SERUM 3.9 MEQ/L (3.5-5.1); SODIUM LEVEL 140 MEQ/L (136-145)
[2019-08-20] MEDS: FOLIC ACID 1 MG TAB PO SCH (07:41)
[2019-08-20] MEDS: MULTIVITAMINS/MINERALS THERAP 1 TAB PO SCH (07:42)
[2019-08-20] MEDS: CitaloPRAM (CeleXA) 20 MG TAB PO SCH (07:42)
[2019-08-20 14:00] VITALS: BP 115/74
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
[2019-08-21] MEDS ORDERED: THIA100TA PO (16:28)
[2019-08-21] MEDS ORDERED: FOLI1TAB11 PO (16:28)
[2019-08-23 10:09] LABS: ACETONE 0.182 % (0.000-0.010); METHANOL Negative % (0.000-0.010)
== END 2019-08-20 17:10 ==
LOC: EDBD 18:16 → M ED 18:16 → M ED INP 18:17 → ENRESERV 08-17 00:53 → M PCU 08-17 01:45 → M MSPAV 08-19 14:02
PROVIDERS: ADMIT Internal Medicine; ATTEND Internal Medicine
DX: F10.120 Alcohol abuse with intoxication, uncomplicated (principal); N17.9 Acute kidney failure, unspecified; E87.8 Other disorders of electrolyte and fluid balance, not elsewhere classified; E87.2 Acidosis; F32.89 Other specified depressive episodes; F41.8 Other specified anxiety disorders; Z91.19 Patient's noncompliance with other medical treatment and regimen; R00.0 Tachycardia, unspecified; R53.1 Weakness; Z79.899 Other long term (current) drug therapy; Z79.3 Long term (current) use of hormonal contraceptives; Z98.84 Bariatric surgery status; F17.210 Nicotine dependence, cigarettes, uncomplicated
CPT/HCPCS: 36415; 71045; 80048; 80053; 80076; 80307; 82010; 82550; 82803; 83605; 83735; 83930; 84443; 84703; 85025; 93005; 93041; 94760; 96360; 96361; 96372; 99285; G0480; J1644

== ENCOUNTER 2019-08-20 15:31 | Inpatient (IN) | payer MEDICAID, OTHER ==
[~2019-08-20] VITALS: Ht 167.6 cm; Wt 68.2 kg
[2019-08-20] MEDS ORDERED: RAMELTEON 8 MG TAB (ROZEREM) PO PRN (15:45)
[2019-08-20] MEDS ORDERED: LORazepam 2 MG TAB PO PRN (15:45)
[2019-08-20] MEDS ORDERED: OLANZapine ORAL DISINTEGRATING TAB 5MG PO PRN (15:45)
[2019-08-20] MEDS ORDERED: IBUPROFEN 400 MG TAB PO PRN (15:45)
[2019-08-20] MEDS ORDERED: MOM 30ML SUSPENSION UDC PO PRN (15:45)
[2019-08-20] MEDS ORDERED: MAALOX 30 ML SUSP *UDC PO PRN (15:45)
[2019-08-20] MEDS: THIAMINE 100 MG TAB PO SCH (18:08)
[2019-08-21 06:36] VITALS: BP 160/84
[2019-08-21] MEDS: THIAMINE 100 MG TAB PO SCH (08:26)
[2019-08-21 08:30] VITALS: BP 104/64
[2019-08-21] MEDS ORDERED: FOLIC ACID 1 MG TAB PO SCH (09:00)
[2019-08-21] MEDS ORDERED: CitaloPRAM (CeleXA) 20 MG TAB PO SCH (09:00)
[2019-08-21] MEDS ORDERED: MULTIVITAMINS/MINERALS THERAP 1 TAB PO SCH (09:00)
--- NOTE | 2019-08-21 14:31 | HPEPDOC ---
[facility] Medical History & Physical Date of Admission Aug 20, 2019 Date of Service: Aug 21, 2019 Attending Physician: Ava Corea MD History and Physical HISTORY OF PRESENT ILLNESS: The patient is a 33-year-old female with past medical history of anxiety, depression, alcohol use disorder who presented to the emergency room initially during her previous hospital stay after her boyfriend found her passed out at home. She had apparently drank a bottle of 70% alcohol three quarters M.D. She's had multiple hospitalizations for alcohol withdrawal. She has had admissions to [facility] 05/22/15 and 04/01/15 for depression and alcohol use. [facility] medical floor for alcohol detox 05/25/18. [facility] detox then [facility] rehab 3mo's ago. In the emergency Department poison control was called, they recommended initially 24-hour observation stay. During her hospitalization stay issues of alcohol intoxication/alcohol abuse was discussed. She denied having drank isopropyl alcohol to kill herself but admits to feeling depressed, hopeless, tearful at times. She was then admitted under the psychiatric team and transferred to mental health unit after her hospitalization for anxiety and depression disorder. Upon evaluation in mental health, the patient denies ever having had a suicidal attempt, she denies auditory or visual hallucinations. She was very distressed and went to leave when she was evaluated by myself. She does not feel as though she needed to be here and, although she admitted to being wrong with drinking isopropyl alcohol, she does not feel this is anything that she can't handle outside of the hospital. She denied chest pain, shortness of breath, fevers, chills, nausea, vomiting, abdominal pain, tremors, cough. REVIEW OF SYSTEMS: Negative except for what is mentioned above PAST MEDICAL HISTORY: 1. Anxiety. 2. Depression. 3. Alcohol use disorder PAST SURGICAL HISTORY: 1. Bariatric surgery 2 years ago at [place]. SOCIAL HISTORY: Current smoker, states she smokes up to half a pack a day when drinking. Heavy alcohol use, states she drinks at least a 12 pack of beer a day. Denies illicit drug use. FAMILY HISTORY: mother- unknown medical history, Alive father- HTN. Alive ALLERGIES: Please see below. HOME MEDICATIONS: Please see below. PHYSICAL EXAMINATION: CONSTITUTIONAL: No acute distress, resting comfortably, AAO x 3 EYES: PERRLA, EOM intact HENT, MOUTH: Normocephalic, atraumatic, moist mucous membranes, NECK: SUPPLE, no JVD, no lymphadenopathy, no carotid bruit CV: Regular rate and rhythm, S1S2 normal, no murmurs/rubs/gallops RESPIRATORY: Clear to auscultation bilaterally, no rales/rhonchi/wheezes GI: BS positive in 4 quadrants, soft, nontender, nondistended, no rebound or guarding, no organomegaly : Deferred MUSCULOSKELETAL: Normal ROM. No cyanosis, clubbing, swelling, joint deformity, extremity edema INTEGUMENTARY: Intact, no rashes, no lesions, no erythema NEUROLOGIC: Cranial Nerves II-XII are intact, no focal deficits PSYCHIATRIC: Mood and affect are normal LABORATORY DATA: Please see below IMAGING: None ASSESSMENT: 33-year-old female admitted to inpatient mental health for anxiety disorder, alcohol use disorder. PLAN: 1. Anxiety/depression disorder. Plan as per psychiatric team. Previously on Celexa. 2. Alcohol use disorder. The patient states that she would like to go home and look into detox/rehabilitation. She does not appear to be alcohol withdrawal. Alcohol cessation counselling given during recent hospitalization. DISPOSITION: The patient is currently admitted under inpatient mental health. The patient appears to be medically stable and we will sign off at this time. If we are needed at any time in the future please do not hesitate to contact us again. Vital Signs Vital Signs Date Time Temp Pulse Resp B/P (MAP) Pulse Ox O2 Delivery O2 Flow Rate FiO2 08/21/19 08:30 126 104/64 08/21/19 06:36 98.1 12 100 Room Air Home Medications Scheduled Citalopram Hydrobromide (Citalopram HBr) 40 Mg Tablet, 40 MG PO DAILY Folic Acid (Folic Acid) 1 Mg Tablet, 1 MG PO DAILY for alcohol misuse Norethindrone AC-Eth Estradiol (Simone 21 1-20 Tablet) 1 Each Tablet, 1 TAB PO DAILY Thiamine Hcl (Vitamin B-1) 100 Mg Tablet, 100 MG PO BID for alcohol misuse Allergies Coded Allergies: No Known Allergies (Unverified , 07/11/18) A-FIB/CHADSVASC A-FIB History Current/History of A-Fib/PAF?: No Current PO Anticoag Therapy: No Age/Risk Factor Scoring CHADSVASC: CHADSVASC Response (Comments) Value Age Risk Factor Age < 65 years old 0 Gender Risk Factor Female 1 Hx of CHF No 0 Hx of HTN No 0 Hx of Stroke/TIA/or VTE No 0 Hx of Diabetes No 0 Hx of Vascular Disease No 0 Total 1 Treatment Treatment ordered: NONE (none ) Ava Corea MD Aug 21, 2019 14:31
[2019-08-21] MEDS ORDERED: FOLI1TAB11 PO (16:28)
[2019-08-21] MEDS ORDERED: THIA100TA PO (16:28)
[2019-08-21 17:05] VITALS: BP 109/75
--- NOTE | 2019-08-22 05:22 | MHHPE ---
DATE OF ADMISSION: 08/20/2019 DATE OF DISCHARGE: 08/21/2019 This is a telemedicine video assessment. It is being done because of the virus pandemic. Patient is aware. It should be noted that this is the admission and discharge summary. DISCHARGE DIAGNOSES: 1. Other specified anxiety disorder. 2. Other specified depressive disorder. 3. Alcohol use disorder. She is 33 years old, has a daughter who lives with the patient's ex-partner, the daughter's father. Patient lives on her own, has a boyfriend, Shan, who lives in [place]; they have been together for about a year. The patient has been admitted to the inpatient psychiatry unit, transferred from the medical floor, where I had seen her on consultation a few days ago, 08/17/2019. Please refer to my consultation summary for details related to the circumstances of the patient's admission, hospitalization, background history, past history, and mental status exam at that time. The patient had come in after had been found in a bad state, and this was after she had started drinking isopropyl alcohol (rubbing alcohol). This was soon after she left detoxification. Was in detoxification at [place], was there for a couple of day, and left a day early. She did not remember much after the drinking and had suggested that she later remembers going to the hospital. She was found passed out by her boyfriend, as far as I understand. It is unclear if she had taken any overdose of any pills as is on Celexa 40 mg daily. I had seen her on the consult service, and I felt that the patient needed inpatient psychiatric hospitalization for further stabilization and management, as she had displayed dangerously poor judgment in drinking and has had considerable difficulties maintaining sobriety, though she had suggested that she was not actively suicidal. The drinking had placed her in danger of harming herself, including inadvertently. The patient stayed at the medical floor for longer than had first been anticipated as was being stabilized and was given treatment there. When she is seen today, says feels better, is anxious, does not want to be here, and feels she would be better off with her boyfriend, Shan, who does not drink. She plans to stay at his place, [place], and go to [facility], which she had apparently attended in the past. She had seen a therapist there. Currently denies any (cut off). Denies any suicidal thoughts or intents. Says has spoken with Shan and that he is quite okay with her staying at his place. Sleep is fair. Appetite is okay. Denies any suicidal thoughts or intents. Denies any cravings for alcohol. PAST PSYCHIATRIC HISTORY/BACKGROUND HISTORY: Please refer to previous summaries, the consultation summary as well. MENTAL STATUS EXAM: She is neat. She is cooperative. She is seen in the presence of staff. No abnormal movements noted. Speech is spontaneous, goal directed. She is coherent. Mood is improved. Affect is fairly broad; she looks much more neat and better, more relaxed than when she was seen last week. She denies any suicidal thoughts or intents. No homicidal ideas or intents. No fluctuation of consciousness. No evidence of any psychosis. Intellect average. Is able to maintain and shift attention adequately. Can spell the word house forwards and backwards and recall three out of three objects after 5 minutes. Judgment is improved. Insight fair. ASSESSMENT: Other specified depressive disorder. Other specified anxiety disorder. Rule out alcohol-induced depressive disorder. Alcohol use disorder. Inability to stop drinking. Enduring circumstances. She is less depressed overall. Is less anxious, as well. Is goal directed. Has support in terms of her boyfriend, Shan. She plans to go stay with him and wants to start going to the [facility], which she has attended in the past. Also wishes to continue with the Celexa at 40 mg daily. She is aware there is not much point in taking the Celexa if she is drinking at the time as well. PLAN: Given the above and collateral information obtained by staff and arrangements made for outpatient care, followup appointments, including a mental health clinic, expressed willingness to engage in treatment, I would suggest that she is discharged to her boyfriend's place with followup as mentioned above. We spoke of bariatric surgery that she had had a couple of years ago and its impact on absorption of alcohol. She is to continue with the Celexa at 40 mg daily. She already has followup appointment arranged, and her boyfriend, Shan, is okay with her coming over to his place and staying there. At present, judgment and insight are improved. She is not (cut off) or anyone else. DISPOSITION: She is discharged home with followup. She is to continue Celexa at 40 mg daily. She is also continued with folic acid 1 mg daily, thiamine 100 mg twice a day. She agrees with the plan. She is also aware of the emergency services available locally. The assessment took 30 minutes.
== END 2019-08-21 17:48 | disposition home or self-care (01) | DRG 754 ==
LOC: M PSY 17:12
PROVIDERS: ADMIT Family Medicine; ATTEND Psychiatry & Neurology Psychiatry
DX: F32.9 Major depressive disorder, single episode, unspecified (principal); F41.9 Anxiety disorder, unspecified; F10.10 Alcohol abuse, uncomplicated; F17.200 Nicotine dependence, unspecified, uncomplicated

== ENCOUNTER 2019-10-05 05:44 | Emergency (ER) | payer MEDICAID, OTHER ==
[~2019-10-05] VITALS: Ht 167.6 cm; Wt 68.2 kg
[~2019-10-05 05:44] MED LIST changes: -VITA100T88 PO; +VITAMIN B-1100 M4 PO
[2019-10-05 06:30] LABS: HEMATOCRIT 41.1 % (36.0-47.0); HEMOGLOBIN 13.9 g/dl (12.0-15.5); MEAN CORPUSCULAR HEMOGLOBIN 31.9 pg (27.0-33.0); MEAN CORPUSCULAR HGB CONC 33.8 g/dl (32.0-36.5); MEAN CORPUSCULAR VOLUME 94.3 fl (80.0-96.0); PLATELET COUNT, AUTOMATED 294 10^3/uL (150-450); RED BLOOD COUNT 4.36 10^6/uL (4.00-5.40); WHITE BLOOD COUNT 5.8 10^3/uL (4.0-10.0)
[2019-10-05] MEDS ORDERED: OXAZEPAM 15 MG CAP PO ONE (07:00)
[2019-10-05 07:04] LABS: AMPHETAMINES LEVEL URINE NEGATIVE (NEGATIVE); BARBITURATES URINE NEGATIVE (NEGATIVE); BENZODIAZEPINES URINE NEGATIVE (NEGATIVE); CANNABINOIDS URINE NEGATIVE (NEGATIVE); COCAINE METABOLITE URINE NEGATIVE (NEGATIVE); METHADONE URINE NEGATIVE (NEGATIVE); OPIATES URINE NEGATIVE (NEGATIVE); PHENCYCLIDINE URINE NEGATIVE (NEGATIVE)
[2019-10-05 07:05] LABS: HCG, SERUM QUALITATIVE NEGATIVE (NEGATIVE)
[2019-10-05 07:11] LABS: ACETAMINOPHEN LEVEL < 2.0 UG/ML (10.0-30.0); ALT/SGPT 67 U/L (12-78); BILIRUBIN,DIRECT 0.2 MG/DL (0.0-0.2); BILIRUBIN,TOTAL 0.7 MG/DL (0.2-1.0); BLOOD UREA NITROGEN 3 MG/DL (7-18); CALCIUM LEVEL 8.4 MG/DL (8.5-10.1); CARBON DIOXIDE LEVEL 27 MEQ/L (21-32); CHLORIDE LEVEL 101 MEQ/L (98-107); CREATININE FOR GFR 0.71 MG/DL (0.55-1.30); ETHYL ALCOHOL (ETHANOL) 0.228 % (0.000-0.010); GLOMERULAR FILTRATION RATE > 60.0 (>60); GLUCOSE, FASTING 98 MG/DL (70-100); POTASSIUM SERUM 3.4 MEQ/L (3.5-5.1); SALICYLATE LEVEL < 1.7 MG/DL (5.0-30.0); SODIUM LEVEL 141 MEQ/L (136-145); TOTAL PROTEIN 7.4 GM/DL (6.4-8.2)
[2019-10-05] MEDS ORDERED: NS 1,000 ML IV ONE (09:15)
[2019-10-05] MEDS ORDERED: METOCLOPRAMIDE INJ 10MG/2ML VIAL (J2765 PER 1) IV ONE (10:30)
[2019-10-05] MEDS ORDERED: LORazepam 2 MG/ML VIAL IV STA (11:35)
[2019-10-05 11:59] VITALS: BP 118/85
--- NOTE | 2019-10-06 09:25 | ECGEPIP ---
[facility] - ED Test Date: 2019-10-05 Pat Name: TAI ARAYA Department: Room: - Gender: Female Erp Project Manager: TC : 1985 Requested By: PARIS Diana PA-C Order Number: [id number] Reading MD: Demond Pastor Measurements Intervals [place] Rate: 108 P: 50 OK: 138 QRS: 53 QRSD: 81 T: 61 QT: 328 QTc: 440 Interpretive Statements SINUS TACHYCARDIA WITH FREQUENT SUPRAVENTRICULAR PREMATURE COMPLEXES NSTTW ABNORMALITIES SIMILAR TO 08/16/19 Electronically Signed on 10-06-2019 9:24:54 EDT by Demond Pastor
== END 2019-10-05 12:17 | disposition home or self-care (01) ==
LOC: M ED 05:44
DX: F10.229 Alcohol dependence with intoxication, unspecified (principal); R00.0 Tachycardia, unspecified; R94.31 Abnormal electrocardiogram [ECG] [EKG]; F41.9 Anxiety disorder, unspecified; Z79.899 Other long term (current) drug therapy; Z98.84 Bariatric surgery status
CPT/HCPCS: 80048; 80076; 80307; 84443; 84703; 85027; 93005; 96361; 96374; 96375; 99284; G0480; J2060; J2765

== ENCOUNTER 2019-10-22 17:07 | Inpatient (IN) | payer OTHER, SELFPAY ==
[2019-10-22] MEDS ORDERED: OXAZEPAM 15 MG CAP As Ordered ONE (18:18)
[2019-10-22] MEDS ORDERED: LORazepam 2 MG/ML VIAL As Ordered ONE ×2 (20:15→22:08)
[2019-10-23] MEDS ORDERED: CitaloPRAM (CeleXA) 20 MG TAB As Ordered ONE (07:34)
[2019-10-23] MEDS ORDERED: OXAZEPAM 15 MG CAP As Ordered ONE (07:52)
[2019-10-23] MEDS ORDERED: LORazepam 2 MG TAB As Ordered ONE ×6 (14:03→19:48)
[2019-10-23] MEDS ORDERED: chlordiazePOXIDE 25 MG CAP As Ordered ONE (19:48)
[2019-10-24] MEDS ORDERED: LORazepam 2 MG TAB As Ordered ONE ×6 (03:47→21:58)
[2019-10-24] MEDS ORDERED: MULTIVITAMINS/MINERALS THERAP 1 TAB As Ordered ONE (09:41)
[2019-10-24] MEDS ORDERED: ENOXAPARIN 40MG/0.4ML SYRINGE (J1650 PER 10MG) As Ordered ONE (09:42)
[2019-10-24] MEDS ORDERED: chlordiazePOXIDE 25 MG CAP As Ordered ONE ×2 (09:42→20:20)
[2019-10-24] MEDS ORDERED: THIAMINE 100 MG TAB As Ordered ONE ×2 (09:42→20:20)
[2019-10-24] MEDS ORDERED: CitaloPRAM (CeleXA) 20 MG TAB As Ordered ONE (09:42)
[2019-10-24] MEDS ORDERED: FOLIC ACID 1 MG TAB As Ordered ONE (09:43)
[2019-10-24] MEDS ORDERED: PRAVASTATIN 20 MG TAB As Ordered ONE (21:11)
[2019-10-25] MEDS ORDERED: THIAMINE 100 MG TAB As Ordered ONE ×2 (07:57→20:53)
[2019-10-25] MEDS ORDERED: ENOXAPARIN 40MG/0.4ML SYRINGE (J1650 PER 10MG) As Ordered ONE (07:57)
[2019-10-25] MEDS ORDERED: MULTIVITAMINS/MINERALS THERAP 1 TAB As Ordered ONE (07:57)
[2019-10-25] MEDS ORDERED: CitaloPRAM (CeleXA) 20 MG TAB As Ordered ONE (07:58)
[2019-10-25] MEDS ORDERED: FOLIC ACID 1 MG TAB As Ordered ONE (07:58)
[2019-10-25] MEDS ORDERED: chlordiazePOXIDE 25 MG CAP As Ordered ONE ×2 (07:58→20:53)
[2019-10-25] MEDS ORDERED: hydrOXYzine 25 MG TAB As Ordered ONE (16:21)
[2019-10-26] MEDS ORDERED: THIAMINE 100 MG TAB As Ordered ONE ×2 (09:54→21:43)
[2019-10-26] MEDS ORDERED: MULTIVITAMINS/MINERALS THERAP 1 TAB As Ordered ONE (09:54)
[2019-10-26] MEDS ORDERED: ENOXAPARIN 40MG/0.4ML SYRINGE (J1650 PER 10MG) As Ordered ONE (09:54)
[2019-10-26] MEDS ORDERED: FOLIC ACID 1 MG TAB As Ordered ONE (09:54)
[2019-10-26] MEDS ORDERED: chlordiazePOXIDE 25 MG CAP As Ordered ONE (09:55)
[2019-10-26] MEDS ORDERED: CitaloPRAM (CeleXA) 20 MG TAB As Ordered ONE (09:55)
[2019-10-26] MEDS ORDERED: ACETAMINOPHEN 325 MG TAB As Ordered ONE (10:24)
[2019-10-26] MEDS ORDERED: zolPIDEM TARTRATE 5 MG TAB As Ordered ONE (21:43)
[2019-10-27] MEDS ORDERED: THIAMINE 100 MG TAB ONE (08:13)
[2019-10-27] MEDS ORDERED: CitaloPRAM (CeleXA) 20 MG TAB ONE (08:13)
[2019-10-27] MEDS ORDERED: MULTIVITAMINS/MINERALS THERAP 1 TAB ONE (08:13)
[2019-10-27] MEDS ORDERED: chlordiazePOXIDE 25 MG CAP ONE (08:13)
[2019-10-27] MEDS ORDERED: FOLIC ACID 1 MG TAB ONE (08:13)
--- NOTE | 2019-11-23 10:18 | CR ---
DATE: 10/25/2019 REASON FOR CONSULTATION: I have been asked to see this patient by the hospitalist. CHIEF COMPLAINT: Feels anxious. HISTORY OF PRESENT ILLNESS: The patient is 33 years old. She is single and lives on her own. She was admitted as she has been drinking heavily, has difficulty with alcohol dependence, and per the chart, has a long history of alcohol dependence. She has had various treatments in the past, and I understand, she was in rehab within the last month or two at [facility]. She had started drinking again a week or so ago, she is not sure why she started again, cites no particular triggers; she said this worsened, and she decided to come to the hospital. According to the chart, she was seen by possible social work at the [facility], on October 22, a couple of days ago, and was depressed with increased anxiety, and was withdrawing from alcohol. She had been on a binge of two weeks drinking. She was requesting admission to the inpatient psychiatry unit, suggesting severe anxiety, and was concerned for her safety if discharged. She was concerned she would begin drinking again. Dr. Pedersen of psychiatry was consulted, who suggested that she be admitted to medicine as there were concerns regarding withdrawal. The patient has been admitted here, by the hospitalist, and I was called by Dr. Rai the hospitalist, indicating that the patient was stable from their perspective; but that she did not want to go home, and asked to see psychiatry. She says she has diarrhea, has felt nauseated, and does not feel that she is ready to go home; she feels she is still withdrawing from alcohol. She says she lives on her own. She has a boyfriend, but is able to contact him. She says she does not know his number, and all of her contact numbers are in her phone, which is at home. She says she does not remember anybody elses number either, does not have contact with others generally, few in terms of social supports. Denies that she is suicidal. Denies that she needs going to inpatient mental health. She says she just wants to stay here for a little while so that she feels better before going home. She says she attends outpatient care at [facility], [facility], has a therapist there, and gets psychotropics of Celexa 40 mg from primary care. She says she has also been on a medicine to help with alcohol, she is not quite sure what it is, but it may possibly be naltrexone. She says she takes it once a day and has been on this for the last three months or so. PAST PSYCHIATRIC HISTORY: She has been treated for depression and anxiety apparently, and has had one inpatient hospitalization at [facility], that she ways was in the last six months or so. It should be noted, I do not have any access to previous records, given that the systems are down. SUBSTANCE ABUSE HISTORY: She uses alcohol, has been dependent on it, and has had withdrawal symptoms as well in the past. She was in rehab recently, in the last month or two. She has been offered visits by the alcohol wastewater treatment engineer here, but she has declined it. She says she has been thinking of attending outpatient care. MENTAL STATUS EXAMINATION: She is lying in bed, a bit guarded, but generally cooperative. She looks a bit unkempt, with fair eye contact. No agitation. Speaks softly. No psychomotor retardation or such. She is coherent. Affect is strictly a bit reactive. She denies any suicidal thoughts or intents. No homicidal ideas or intents. Appears mildly anxious. No fluctuation of consciousness. Cognitively appears intact generally. She is alert and oriented. She can spell the word house forwards and backwards. She recall two out of three objects after five minutes. Intellect average. Judgment fair, as is insight. ASSESSMENT: - Unspecified anxiety disorder. - Unspecified depressive disorder. - Alcohol use disorder. - Alcohol withdrawal. Has a history of alcohol dependence, is withdrawing from alcohol. At present, is anxious. Says she wishes to stay here and not go home until she feels ready, feels she is continuing with withdrawal. Feels anxious about going home. Denies any suicidal thoughts or intents. Denies that she has been suicidal when she had come in. RECOMMENDATIONS: I would suggest continuing current care, optimizing it, and working with her in terms of discharge. When the patient is ready for discharge, I would suggest offering her a voluntary admission to inpatient mental health. I did suggest that to her, and she currently declines it. Rationale for offering her the voluntary admission is also discussed, given concerns regarding anxiety and depression, and how they go hand and hand, quite often, with alcohol dependence. She does not meet the criteria for involuntary hospitalization. I would suggest referring her back to outpatient mental health care at [facility], [facility]. Refer her to alcohol treatment, as an outpatient. She declines rehab at this point. Thank you for the consult. If there any questions, please call. The assessment took 35 minutes. AUBREY
[2019-12-12 19:48] LABS: HEMATOCRIT 38.1 % (36.0-47.0); HEMOGLOBIN 12.6 g/dl (12.0-15.5); MEAN CORPUSCULAR HEMOGLOBIN 31.6 pg (27.0-33.0); MEAN CORPUSCULAR HGB CONC 33.1 g/dl (32.0-36.5); MEAN CORPUSCULAR VOLUME 95.5 fl (80.0-96.0); PLATELET COUNT, AUTOMATED 225 10^3/uL (150-450); RED BLOOD COUNT 3.99 10^6/uL (4.00-5.40); WHITE BLOOD COUNT 5.7 10^3/uL (4.0-10.0)
[2019-12-13 01:30] LABS: HEMATOCRIT 37.9 % (36.0-47.0); HEMOGLOBIN 12.8 g/dl (12.0-15.5); MEAN CORPUSCULAR HEMOGLOBIN 31.4 pg (27.0-33.0); MEAN CORPUSCULAR HGB CONC 33.8 g/dl (32.0-36.5); MEAN CORPUSCULAR VOLUME 92.9 fl (80.0-96.0); PLATELET COUNT, AUTOMATED 515 10^3/uL (150-450); RED BLOOD COUNT 4.08 10^6/uL (4.00-5.40); WHITE BLOOD COUNT 8.8 10^3/uL (4.0-10.0)
[2019-12-14 14:44] LABS: MEAN CORPUSCULAR HEMOGLOBIN 31.4 pg (27.0-33.0); MEAN CORPUSCULAR HGB CONC 32.4 g/dl (32.0-36.5); MEAN CORPUSCULAR VOLUME 96.9 fl (80.0-96.0); PLATELET COUNT, AUTOMATED 206 10^3/uL (150-450); RED BLOOD COUNT 3.82 10^6/uL (4.00-5.40); WHITE BLOOD COUNT 5.4 10^3/uL (4.0-10.0)
[2019-12-22 08:44] LABS: HEMATOCRIT 33.8 % (36.0-47.0); HEMOGLOBIN 11.3 g/dl (12.0-15.5); MEAN CORPUSCULAR HEMOGLOBIN 31.5 pg (27.0-33.0); MEAN CORPUSCULAR HGB CONC 33.4 g/dl (32.0-36.5); MEAN CORPUSCULAR VOLUME 94.2 fl (80.0-96.0); PLATELET COUNT, AUTOMATED 283 10^3/uL (150-450); RED BLOOD COUNT 3.59 10^6/uL (4.00-5.40)
[2019-12-22 11:14] LABS: HEMATOCRIT 37.1 % (36.0-47.0); HEMOGLOBIN 12.4 g/dl (12.0-15.5); MEAN CORPUSCULAR HEMOGLOBIN 31.6 pg (27.0-33.0); MEAN CORPUSCULAR HGB CONC 33.4 g/dl (32.0-36.5); MEAN CORPUSCULAR VOLUME 94.6 fl (80.0-96.0); PLATELET COUNT, AUTOMATED 240 10^3/uL (150-450); RED BLOOD COUNT 3.92 10^6/uL (4.00-5.40); WHITE BLOOD COUNT 5.5 10^3/uL (4.0-10.0)
[2019-12-31 01:20] LABS: ACETAMINOPHEN LEVEL < 2.0 UG/ML (10.0-30.0); AMPHETAMINES LEVEL URINE NEGATIVE (NEGATIVE); BARBITURATES URINE NEGATIVE (NEGATIVE); BENZODIAZEPINES URINE NEGATIVE (NEGATIVE); BLOOD UREA NITROGEN 3 MG/DL (7-18); CALCIUM LEVEL 8.7 MG/DL (8.5-10.1); CANNABINOIDS URINE NEGATIVE (NEGATIVE); CARBON DIOXIDE LEVEL 25 MEQ/L (21-32); CHLORIDE LEVEL 101 MEQ/L (98-107); COCAINE METABOLITE URINE NEGATIVE (NEGATIVE); CREATININE FOR GFR 0.91 MG/DL (0.55-1.30); ETHYL ALCOHOL (ETHANOL) < 0.003 % (0.000-0.010); GLOMERULAR FILTRATION RATE > 60.0 (>60); GLUCOSE, FASTING 55 MG/DL (70-100); MAGNESIUM LEVEL 1.9 MG/DL (1.8-2.4); METHADONE URINE NEGATIVE (NEGATIVE); OPIATES URINE NEGATIVE (NEGATIVE); PHENCYCLIDINE URINE NEGATIVE (NEGATIVE); POTASSIUM SERUM 3.8 MEQ/L (3.5-5.1); SALICYLATE LEVEL < 1.7 MG/DL (5.0-30.0); SODIUM LEVEL 140 MEQ/L (136-145)
[2020-01-06 11:29] LABS: BLOOD UREA NITROGEN 2 MG/DL (7-18); CALCIUM LEVEL 8.4 MG/DL (8.5-10.1); CARBON DIOXIDE LEVEL 26 MEQ/L (21-32); CHLORIDE LEVEL 101 MEQ/L (98-107); GLOMERULAR FILTRATION RATE > 60.0 (>60); GLUCOSE, FASTING 83 MG/DL (70-100); MAGNESIUM LEVEL 1.6 MG/DL (1.8-2.4); POTASSIUM SERUM 3.6 MEQ/L (3.5-5.1); SODIUM LEVEL 133 MEQ/L (136-145)
[2020-01-06 11:29] LABS: ACETAMINOPHEN LEVEL < 2.0 UG/ML (10.0-30.0); BLOOD UREA NITROGEN 2 MG/DL (7-18); CALCIUM LEVEL 7.4 MG/DL (8.5-10.1); CARBON DIOXIDE LEVEL 24 MEQ/L (21-32); CHLORIDE LEVEL 110 MEQ/L (98-107); CREATININE FOR GFR 0.46 MG/DL (0.55-1.30); GLOMERULAR FILTRATION RATE > 60.0 (>60); GLUCOSE, FASTING 78 MG/DL (70-100); POTASSIUM SERUM 3.1 MEQ/L (3.5-5.1); SALICYLATE LEVEL < 1.7 MG/DL (5.0-30.0); SODIUM LEVEL 145 MEQ/L (136-145)
[2020-01-11 14:12] LABS: HEMATOCRIT 37.9 % (36.0-47.0); HEMOGLOBIN 12.8 g/dl (12.0-15.5); MEAN CORPUSCULAR HEMOGLOBIN 31.4 pg (27.0-33.0); MEAN CORPUSCULAR HGB CONC 33.8 g/dl (32.0-36.5); MEAN CORPUSCULAR VOLUME 92.9 fl (80.0-96.0); PLATELET COUNT, AUTOMATED 515 10^3/uL (150-450); RED BLOOD COUNT 4.08 10^6/uL (4.00-5.40); WHITE BLOOD COUNT 8.8 10^3/uL (4.0-10.0)
[2020-01-14 10:03] LABS: ALT/SGPT 64 U/L (12-78); BILIRUBIN,TOTAL 0.4 MG/DL (0.2-1.0); BLOOD UREA NITROGEN 6 MG/DL (7-18); CALCIUM LEVEL 8.4 MG/DL (8.5-10.1); CARBON DIOXIDE LEVEL 28 MEQ/L (21-32); CHLORIDE LEVEL 106 MEQ/L (98-107); CREATININE FOR GFR 0.58 MG/DL (0.55-1.30); GLOMERULAR FILTRATION RATE > 60.0 (>60); GLUCOSE, FASTING 81 MG/DL (70-100); POTASSIUM SERUM 3.3 MEQ/L (3.5-5.1); SODIUM LEVEL 138 MEQ/L (136-145); TOTAL PROTEIN 6.6 GM/DL (6.4-8.2)
[2020-01-14 16:41] LABS: ALT/SGPT 62 U/L (12-78); BILIRUBIN,TOTAL 0.3 MG/DL (0.2-1.0); BLOOD UREA NITROGEN 6 MG/DL (7-18); CALCIUM LEVEL 8.4 MG/DL (8.5-10.1); CARBON DIOXIDE LEVEL 26 MEQ/L (21-32); CHLORIDE LEVEL 107 MEQ/L (98-107); CREATININE FOR GFR 0.58 MG/DL (0.55-1.30); GLOMERULAR FILTRATION RATE > 60.0 (>60); GLUCOSE, FASTING 91 MG/DL (70-100); POTASSIUM SERUM 3.4 MEQ/L (3.5-5.1); SODIUM LEVEL 140 MEQ/L (136-145); TOTAL PROTEIN 6.5 GM/DL (6.4-8.2)
[2020-01-16 16:15] LABS: BLOOD UREA NITROGEN 3 MG/DL (7-18); CALCIUM LEVEL 8.5 MG/DL (8.5-10.1); CARBON DIOXIDE LEVEL 24 mmol/L (20-29); CHLORIDE LEVEL 102 MEQ/L (98-107); CREATININE FOR GFR 0.52 MG/DL (0.55-1.30); GLOMERULAR FILTRATION RATE > 60.0 (>60); GLUCOSE, FASTING 76 MG/DL (70-100); POTASSIUM SERUM 3.5 MEQ/L (3.5-5.1); SODIUM LEVEL 134 MEQ/L (136-145)
[2020-01-21 20:17] LABS: BLOOD UREA NITROGEN 6 MG/DL (7-18); CREATININE FOR GFR 0.53 MG/DL (0.55-1.30); GLOMERULAR FILTRATION RATE > 60.0 (>60); GLUCOSE, FASTING 79 MG/DL (70-100); POTASSIUM SERUM 3.5 MEQ/L (3.5-5.1); SODIUM LEVEL 141 MEQ/L (136-145)
[2020-01-21 20:18] LABS: CALCIUM LEVEL 8.3 MG/DL (8.5-10.1); CARBON DIOXIDE LEVEL 26 mmol/L (20-29); CHLORIDE LEVEL 110 MEQ/L (98-107)
== END 2019-10-27 08:30 | disposition home or self-care (01) | DRG 775 ==
LOC: M ED 17:07 → MERGE 10-23 10:20 → M MS5PR 10-23 10:20
PROVIDERS: ADMIT Internal Medicine; ATTEND Internal Medicine
DX: F10.239 Alcohol dependence with withdrawal, unspecified (principal); F32.9 Major depressive disorder, single episode, unspecified; Z79.899 Other long term (current) drug therapy; F41.9 Anxiety disorder, unspecified

== ENCOUNTER → 2019-11-05 | Emergency (ER) | payer OTHER ==
[~2019-11-05] MED LIST changes: +DEPO150I12 IM; +OXAZEPAM 15 MG CAP As Ordered ONE; +OXAZEPAM 15 MG CAP ONE; +THIAMINE 200MG/2ML VIAL (J3411 PER 100MG) As Ordered ONE; +THIAMINE 200MG/2ML VIAL (J3411 PER 100MG) ONE
--- NOTE | 2019-12-05 15:31 | ECGEPIP ---
SINUS TACHYCARDIA ABNORMAL RHYTHM ECG PRWP NONSPECIFIC ST & T-WAVE ABNORMALITY SEE SCANNED DOWNTIME REPORT MTDD
[2019-12-20 11:48] LABS: BASO # 0.1 10^3/uL (0.0-0.2); BASO % 0.5 % (0.0-1.0); EOS # 0.1 10^3/uL (0.0-0.5); EOS % 0.8 % (0.0-3.0); HEMATOCRIT 35.9 % (36.0-47.0); HEMOGLOBIN 12.4 g/dl (12.0-15.5); LYMPH # 3.5 10^3/uL (1.5-5.0); MEAN CORPUSCULAR HEMOGLOBIN 31.5 pg (27.0-33.0); MEAN CORPUSCULAR HGB CONC 34.5 g/dl (32.0-36.5); MEAN CORPUSCULAR VOLUME 91.1 fl (80.0-96.0); MONO # 1.1 10^3/uL (0.0-0.8); NEUTROPHILS # 10.3 10^3/uL (1.5-8.5); NEUTROPHILS % 68.3 % (36.0-66.0); PLATELET COUNT, AUTOMATED 407 10^3/uL (150-450); RED BLOOD COUNT 3.94 10^6/uL (4.00-5.40); WHITE BLOOD COUNT 15.1 10^3/uL (4.0-10.0)
[2020-01-27 12:13] LABS: HCG, SERUM QUALITATIVE NEGATIVE (NEGATIVE)
[2020-01-27 12:23] LABS: ACETAMINOPHEN LEVEL < 2.0 UG/ML (10.0-30.0); ALT/SGPT 39 U/L (12-78); AMPHETAMINES LEVEL URINE NEGATIVE (NEGATIVE); BARBITURATES URINE NEGATIVE (NEGATIVE); BENZODIAZEPINES URINE POSITIVE (NEGATIVE); BILIRUBIN,TOTAL 0.4 MG/DL (0.2-1.0); BLOOD UREA NITROGEN 7 MG/DL (7-18); CALCIUM LEVEL 7.9 MG/DL (8.5-10.1); CANNABINOIDS URINE NEGATIVE (NEGATIVE); CARBON DIOXIDE LEVEL 23 MEQ/L (21-32); CHLORIDE LEVEL 99 MEQ/L (98-107); COCAINE METABOLITE URINE NEGATIVE (NEGATIVE); CREATININE FOR GFR 0.68 MG/DL (0.55-1.30); ETHYL ALCOHOL (ETHANOL) 0.306 % (0.000-0.010); GLOMERULAR FILTRATION RATE > 60.0 (>60); GLUCOSE, FASTING 81 MG/DL (70-100); MAGNESIUM LEVEL 1.7 MG/DL (1.8-2.4); METHADONE URINE NEGATIVE (NEGATIVE); OPIATES URINE NEGATIVE (NEGATIVE); PHENCYCLIDINE URINE NEGATIVE (NEGATIVE); SALICYLATE LEVEL < 1.7 MG/DL (5.0-30.0); SODIUM LEVEL 137 MEQ/L (136-145); TOTAL PROTEIN 6.6 GM/DL (6.4-8.2)
== END | disposition left against medical advice (07) ==
LOC: M ED 10:10
DX: F10.129 Alcohol abuse with intoxication, unspecified (principal); Z53.21 Procedure and treatment not carried out due to patient leaving prior to being seen by health care provider; R00.0 Tachycardia, unspecified; R94.31 Abnormal electrocardiogram [ECG] [EKG]; Z98.84 Bariatric surgery status; Z79.899 Other long term (current) drug therapy
CPT/HCPCS: 80053; 80307; 83735; 84443; 84703; 85025; 93005; 96361; 96374; 99285; G0480; J3411

== ENCOUNTER 2019-11-18 21:13 | Emergency (ER) | payer OTHER ==
[~2019-11-18] VITALS: Ht 167.6 cm; Wt 68.8 kg
[~2019-11-18 21:13] MED LIST changes: -DEPO150I12 IM; -OXAZEPAM 15 MG CAP As Ordered ONE; -OXAZEPAM 15 MG CAP ONE; -THIAMINE 200MG/2ML VIAL (J3411 PER 100MG) As Ordered ONE; -THIAMINE 200MG/2ML VIAL (J3411 PER 100MG) ONE
[2019-11-18 21:26] LABS: BASO % 0.7 % (0.0-1.0); EOS % 0.3 % (0.0-3.0); HEMATOCRIT 38.5 % (36.0-47.0); LYMPH # 2.5 10^3/uL (1.5-5.0); MEAN CORPUSCULAR HEMOGLOBIN 31.7 pg (27.0-33.0); MEAN CORPUSCULAR HGB CONC 33.8 g/dl (32.0-36.5); MEAN CORPUSCULAR VOLUME 93.9 fl (80.0-96.0); MONO # 0.5 10^3/uL (0.0-0.8); MONO % 8.3 % (0.0-5.0); NEUTROPHILS # 2.9 10^3/uL (1.5-8.5); NEUTROPHILS % 48.4 % (36.0-66.0); PLATELET COUNT, AUTOMATED 434 10^3/uL (150-450)
[2019-11-18 21:27] VITALS: BP 124/90
[2019-11-18] MEDS ORDERED: NS 1,000 ML IV ONE (21:30)
[2019-11-18 21:42] LABS: HCG, SERUM QUALITATIVE NEGATIVE (NEGATIVE)
[2019-11-18 22:00] LABS: ACETAMINOPHEN LEVEL < 2.0 UG/ML (10.0-30.0); ALBUMIN 2.8 GM/DL (3.2-5.2); ALT/SGPT 98 U/L (12-78); BILIRUBIN,DIRECT < 0.1 MG/DL (0.0-0.2); BILIRUBIN,TOTAL 0.2 MG/DL (0.2-1.0); BLOOD UREA NITROGEN 2 MG/DL (7-18); CALCIUM LEVEL 7.7 MG/DL (8.5-10.1); CARBON DIOXIDE LEVEL 30 MEQ/L (21-32); CHLORIDE LEVEL 107 MEQ/L (98-107); CPK CREATINE PHOSPHOKINASE 273 U/L (26-192); CREATININE FOR GFR 0.62 MG/DL (0.55-1.30); ETHYL ALCOHOL (ETHANOL) 0.359 % (0.000-0.010); GLOMERULAR FILTRATION RATE > 60.0 (>60); GLUCOSE, FASTING 127 MG/DL (70-100); POTASSIUM SERUM 3.3 MEQ/L (3.5-5.1); SALICYLATE LEVEL < 1.7 MG/DL (5.0-30.0); SODIUM LEVEL 144 MEQ/L (136-145); TOTAL PROTEIN 6.7 GM/DL (6.4-8.2)
[2019-11-19] MEDS ORDERED: OXAZEPAM 15 MG CAP PO ONE
[2019-11-19] MEDS ORDERED: ONDANSETRON 4 MG ORAL DISINTEGRATING TAB PO ONE (00:45)
[2019-11-19 10:32] LABS: HEPATITIS B SURFACE ANTIGEN NEGATIVE (NEGATIVE)
[2019-11-19 10:59] LABS: HEPATITIS B CORE ANTIBODY IGM NEGATIVE (NEGATIVE); HEPATITIS C VIRUS ABY INDEX 0.4 INDEX (<0.8)
[2019-11-19 11:02] LABS: HEPATITIS A ANTIBODY IGM NEGATIVE (NEGATIVE)
[2019-11-19] MEDS ORDERED: DEPO150I12 IM (15:19)
--- NOTE | 2019-12-25 09:07 | ECGEPIP ---
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
== END 2019-11-19 03:46 | disposition home or self-care (01) ==
LOC: M ED 21:13
DX: F10.120 Alcohol abuse with intoxication, uncomplicated (principal); F32.9 Major depressive disorder, single episode, unspecified; F41.9 Anxiety disorder, unspecified; F17.200 Nicotine dependence, unspecified, uncomplicated; R00.0 Tachycardia, unspecified
CPT/HCPCS: 80048; 80076; 82550; 84443; 84703; 85025; 86705; 86709; 86803; 87340; 93005; 93041; 94760; 96360; 99285; G0480; Q0162

== ENCOUNTER 2019-11-19 10:10 | Emergency (ER) | payer OTHER ==
[~2019-11-19] VITALS: Ht 167.6 cm; Wt 66.2 kg
[2019-11-19 11:18] LABS: HEMOGLOBIN 12.4 g/dl (12.0-15.5); MEAN CORPUSCULAR HEMOGLOBIN 31.8 pg (27.0-33.0); MEAN CORPUSCULAR HGB CONC 33.5 g/dl (32.0-36.5); MEAN CORPUSCULAR VOLUME 94.9 fl (80.0-96.0); PLATELET COUNT, AUTOMATED 391 10^3/uL (150-450); WHITE BLOOD COUNT 5.6 10^3/uL (4.0-10.0)
[2019-11-19 11:40] LABS: HCG, SERUM QUALITATIVE NEGATIVE (NEGATIVE)
[2019-11-19 11:50] LABS: ACETAMINOPHEN LEVEL 9.9 UG/ML (10.0-30.0); ALBUMIN 2.8 GM/DL (3.2-5.2); ALT/SGPT 97 U/L (12-78); AMPHETAMINES LEVEL URINE NEGATIVE (NEGATIVE); BARBITURATES URINE POSITIVE (NEGATIVE); BENZODIAZEPINES URINE POSITIVE (NEGATIVE); BILIRUBIN,DIRECT 0.2 MG/DL (0.0-0.2); BILIRUBIN,TOTAL 0.6 MG/DL (0.2-1.0); BLOOD UREA NITROGEN 4 MG/DL (7-18); CALCIUM LEVEL 7.9 MG/DL (8.5-10.1); CANNABINOIDS URINE NEGATIVE (NEGATIVE); CARBON DIOXIDE LEVEL 29 MEQ/L (21-32); CHLORIDE LEVEL 103 MEQ/L (98-107); COCAINE METABOLITE URINE NEGATIVE (NEGATIVE); CREATININE FOR GFR 0.68 MG/DL (0.55-1.30); ETHYL ALCOHOL (ETHANOL) 0.039 % (0.000-0.010); GLOMERULAR FILTRATION RATE > 60.0 (>60); GLUCOSE, FASTING 82 MG/DL (70-100); METHADONE URINE NEGATIVE (NEGATIVE); OPIATES URINE NEGATIVE (NEGATIVE); PHENCYCLIDINE URINE NEGATIVE (NEGATIVE); POTASSIUM SERUM 3.8 MEQ/L (3.5-5.1); SALICYLATE LEVEL < 1.7 MG/DL (5.0-30.0); SODIUM LEVEL 138 MEQ/L (136-145); TOTAL PROTEIN 6.8 GM/DL (6.4-8.2)
[2019-11-19] MEDS ORDERED: OXAZEPAM 10 MG CAP PO ONE ×2 (12:45→16:00)
[2019-11-19] MEDS ORDERED: DEPO150I12 IM (15:19)
--- NOTE | 2019-11-19 16:12 | ED PDOC ---
Provider Note Patient seen briefly as addiction consult, patient has significant alcohol use, but denying any suicidal or homicidal ideation. Currently plans to be sent to detox in the morning, she reports that this Serax has not been covering her withdrawal symptoms and she is increasing in terms of her anxiety, ordered 1 mg of Ativan to quell her symptoms. Plan for discharge to detox tomorrow. YAEL ADAMSON DO Nov 19, 2019 16:12
[2019-11-19] MEDS ORDERED: LORazepam 1 MG TAB PO ONE (19:30)
[2019-11-19] MEDS: LORazepam 2 MG TAB PO PRN (22:30)
[2019-11-20] MEDS: LORazepam 2 MG TAB PO PRN (02:55)
[2019-11-20] MEDS ORDERED: THIAMINE 100 MG TAB PO SCH (09:00)
[2019-11-20] MEDS ORDERED: FOLIC ACID 1 MG TAB PO SCH (09:00)
[2019-11-20] MEDS ORDERED: MULTIVITAMINS/MINERALS THERAP 1 TAB PO SCH (09:00)
[2019-11-20 13:03] VITALS: BP 131/92
[2019-11-20] MEDS ORDERED: LORazepam 1 MG TAB PO ONE (13:30)
== END 2019-11-20 13:30 | disposition home or self-care (01) ==
LOC: M ED 10:10
DX: F10.10 Alcohol abuse, uncomplicated (principal); F17.200 Nicotine dependence, unspecified, uncomplicated
CPT/HCPCS: 80048; 80076; 80307; 84443; 84703; 85027; 99284; G0480

== ENCOUNTER 2020-02-18 15:44 | Emergency (ER) | payer OTHER ==
[~2020-02-18] VITALS: Ht 167.6 cm; Wt 68.2 kg
[~2020-02-18 15:44] MED LIST changes: +DEPO150I12 IM
[2020-02-18 15:45] VITALS: BP 111/75
== END 2020-02-18 16:35 | disposition left against medical advice (07) ==
LOC: M ED 15:44
DX: Z53.21 Procedure and treatment not carried out due to patient leaving prior to being seen by health care provider (principal)

== ENCOUNTER 2020-02-27 16:26 | Inpatient (IN) | payer OTHER ==
[~2020-02-27] VITALS: Ht 165.1 cm; Wt 71.8 kg
[2020-02-27] MEDS ORDERED: THIAMINE 200MG/2ML VIAL (J3411 PER 100MG) IM ONE (16:45)
[2020-02-27] MEDS: NS 1,000 ML IV SCH ×2 (16:52→19:30)
[2020-02-27 16:54] LABS: BASO % 0.5 % (0.0-1.0); EOS % 0.5 % (0.0-3.0); HEMATOCRIT 42.3 % (36.0-47.0); HEMOGLOBIN 13.8 g/dl (12.0-15.5); LYMPH # 1.8 10^3/uL (1.5-5.0); LYMPH % 44.1 % (24.0-44.0); MEAN CORPUSCULAR HEMOGLOBIN 28.6 pg (27.0-33.0); MEAN CORPUSCULAR HGB CONC 32.6 g/dl (32.0-36.5); MEAN CORPUSCULAR VOLUME 87.6 fl (80.0-96.0); MONO # 0.3 10^3/uL (0.0-0.8); MONO % 8.5 % (0.0-5.0); NEUTROPHILS # 1.9 10^3/uL (1.5-8.5); NEUTROPHILS % 46.4 % (36.0-66.0); PLATELET COUNT, AUTOMATED 165 10^3/uL (150-450); RED BLOOD COUNT 4.83 10^6/uL (4.00-5.40)
--- NOTE | 2020-02-27 17:09 | REP ---
INDICATION: Drug Overdose. COMPARISON: None. TECHNIQUE: Helical scanning is acquired. 5 mm axial images were reformatted. Coronal MPR images were generated. FINDINGS: Bone window settings demonstrate an intact bony calvarium. There is no evidence of skull fracture or incidental bony calvarial lesion. The visualized paranasal sinuses appear clear. No intraorbital abnormality is seen. On soft tissue window setting images; the lateral, third, and fourth ventricles are normal in size and position. García-white differentiation pattern is normal above and below the tentorium. There are is no evidence of intracranial hemorrhage. No mass, edema, infarction, or midline shift is seen. No extra-axial fluid collection is appreciated. IMPRESSION: Negative noncontrast head CT. <Electronically signed by Iggy Loyd > 02/27/20 0199
[2020-02-27 17:30] LABS: ACETAMINOPHEN LEVEL < 2.0 UG/ML (10.0-30.0); ALT/SGPT 96 U/L (12-78); BILIRUBIN,DIRECT 0.2 MG/DL (0.0-0.2); BILIRUBIN,TOTAL 0.3 MG/DL (0.2-1.0); BLOOD UREA NITROGEN 3 MG/DL (7-18); CALCIUM LEVEL 8.2 MG/DL (8.5-10.1); CARBON DIOXIDE LEVEL 26 MEQ/L (21-32); CHLORIDE LEVEL 109 MEQ/L (98-107); CPK CREATINE PHOSPHOKINASE 1888 U/L (26-192); CREATININE FOR GFR 0.63 MG/DL (0.55-1.30); ETHYL ALCOHOL (ETHANOL) 0.541 % (0.000-0.010); GLOMERULAR FILTRATION RATE > 60.0 (>60); GLUCOSE, FASTING 102 MG/DL (70-100); POTASSIUM SERUM 3.9 MEQ/L (3.5-5.1); SALICYLATE LEVEL < 1.7 MG/DL (5.0-30.0); SODIUM LEVEL 144 MEQ/L (136-145); TOTAL PROTEIN 7.5 GM/DL (6.4-8.2)
[2020-02-27 17:50] LABS: OSMOLALITY SERUM 431 MOSM/KG (275-295)
[2020-02-27] MEDS ORDERED: NS 1,000 ML IV ONE (18:00)
[2020-02-27] MEDS: LORazepam 2 MG TAB PO PRN (20:55)
--- NOTE | 2020-02-27 21:00 | ECGEPIP ---
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
[2020-02-27 21:21] LABS: AMPHETAMINES LEVEL URINE NEGATIVE (NEGATIVE); BARBITURATES URINE NEGATIVE (NEGATIVE); BENZODIAZEPINES URINE NEGATIVE (NEGATIVE); CANNABINOIDS URINE NEGATIVE (NEGATIVE); COCAINE METABOLITE URINE NEGATIVE (NEGATIVE); METHADONE URINE NEGATIVE (NEGATIVE); OPIATES URINE NEGATIVE (NEGATIVE); PHENCYCLIDINE URINE NEGATIVE (NEGATIVE)
[2020-02-28] VITALS (10 sets, daily range): BP systolic 122–139; BP diastolic 68–95
[2020-02-28] MEDS ORDERED: MULTIVITAMIN -ADULT INJECTION 10 ML, THIAMINE INJection 100 MG, FOLIC ACID 1 MG in NS 1... IV ONE ×2 (07:15→07:30)
[2020-02-28] MEDS ORDERED: LORazepam 2 MG/ML VIAL IV STA (07:19)
[2020-02-28] MEDS: LORazepam 2 MG TAB PO PRN ×9 (08:01→21:07)
[2020-02-28] MEDS ORDERED: ENOXAPARIN 40MG/0.4ML SYRINGE (J1650 PER 10MG) SC SCH (09:00)
[2020-02-28] MEDS: FOLIC ACID 1 MG TAB PO SCH (10:56)
[2020-02-28] MEDS: MULTIVITAMINS/MINERALS THERAP 1 TAB PO SCH (10:56)
[2020-02-28] MEDS: THIAMINE 100 MG TAB PO SCH ×2 (10:56→21:07)
[2020-02-28] MEDS: NS 1,000 ML IV SCH ×2 (10:57→18:15)
--- NOTE | 2020-02-28 12:56 | HPEPDOC ---
[facility] Medical History & Physical Date of Admission Feb 28, 2020 Date of Service: Feb 28, 2020 Attending Physician: PADDY WRIGHT MD History and Physical CHIEF COMPLAINT: Unresponsive, found down i/s/o alcohol intoxication, now with ongoing withdrawal HISTORY OF PRESENT ILLNESS: 34-year-old W who presented to the emergency room overnight after being found down while intoxicated and is now in april alcohol withdrawal and also suspected to be quite dehydrated. She has a history of alcohol use disorder with a history of frequent admissions for withdrawal. In the ED, she was normotensive but tachycardic to 120s, afebrile and breathing comfortably on room air. Studies showed an ethanol level of 0.55, CK 1888, Na 144, K 3.9, Cr 0.63, WBC 4, Hgb 13.8, platelets 165, AST 159, ALT 96, Tbili 0.3, alk phos 128, and given having been found unresponsive and lethargy in the ED, she had a noncon head CT that was grossly unremarkable and wnl. She was started on CIWA protocol in the ED wit h ativan and given 2L NS but continued to be tachycardic and dehydrated on physical exam. This morning, she is mostly lethargic but tremulous on waking and continues to be tachycardic. She is now being admitted to medicine for alcohol withdrawal, mild rhabdomyolysis and dehydration. PAST MEDICAL HISTORY: 1. Anxiety. 2. Depression. 3. Alcohol abuse. PAST SURGICAL HISTORY: 1. Bariatric surgery 2 years ago at [facility]. SOCIAL HISTORY: Current smoker, states she smokes up to half a pack a day when drinking. Heavy alcohol use, >12 pack of beer a day. Denies illicit drug use. FAMILY HISTORY: Patient unsure of any family medical history. Unable to corroborate at this time. ALLERGIES: Please see below. REVIEW OF SYSTEMS: CONSTITUTIONAL: Denies any recent fever, chills, night sweats, fatigue, weight loss, sick contacts. HEENT: Denies change in vision, change in hearing. CARDIOVASCULAR: Denies chest pain, shortness of breath, lightheadedness. RESPIRATORY: Denies dyspnea, cough, wheezing. GASTROINTESTINAL: Endorses episodic nausea. Denies vomiting, abdominal pain, diarrhea, constipation, blood in stool. GENITOURINARY: Denies dysuria, urinary frequency, urinary urgency. SKIN: Denies rash, lesions. MUSCULOSKELETAL: Endorses generalized body aches. Denies joint pain. NEUROLOGICAL: Feels weak at this time. PHYSICAL EXAMINATION: VITAL SIGNS: See below. GENERAL: Lethargic, awake on voice, no acute distress, with notable tremor HEENT: Normocephalic, atraumatic, PERRLA, EOMI, sclerae anicteric, dry mucous membranes NECK: Supple, trachea midline, no lymphadenopathy, no JVD CARDIOVASCULAR: Tachycardia with regular rhythm, normal S1 and S2, no noted m/r/g RESPIRATORY: Clear to auscultation bilaterally with equal air entry bilaterally. No wheezing, rhonchi, or rales. Breathing comfortably on room air ABDOMEN: Soft, nontender, nondistended, bowel sounds present, no masses or hep atosplenomegaly appreciated EXTREMITIES: No cyanosis or edema. Pulses 2+ in bilateral upper and lower extremities SKIN: [place], warm, dry NEUROLOGIC: Alert and oriented 3 to person, place and time. No focal deficits appreciated. Tremulous. PSYCHIATRIC: Mood and affect appropriate LABORATORY DATA: Summarized above MICROBIOLOGY: Resp panel negative for covid-19 ASSESSMENT: 33-year-old W with history of alcohol use disorder with multiple ED visits and admissions for withdrawal, admitted for alcohol withdrawal , mild rhabdomyolysis and dehydration. PLAN: 2. Alcohol withdrawal CIWA protocol with Ativan prn. 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 -Monitor on telemetry. -NS at 200cc/hr DVT prophylaxis: -Subcutaneous lovenox. -TEDs Disposition: Admitted inpatient to med/surg with telemetry Vital Signs Vital Signs Date Time Temp Pulse Resp B/P (MAP) Pulse Ox O2 Delivery O2 Flow Rate FiO2 02/28/20 08:15 101 18 113/73 (86) 97 Room Air 02/27/20 16:30 97.7 Laboratory Data Labs 24H Laboratory Tests 2 02/27/20 16:40: Immature Granulocyte % (Auto) 0.0, Neutrophils (%) (Auto) 46.4, Lymphocytes (%) (Auto) 44.1H, Monocytes (%) (Auto) 8.5H, Eosinophils (%) (Auto) 0.5, Basophils (%) (Auto) 0.5, Neutrophils # (Auto) 1.9, Lymphocytes # (Auto) 1.8, Monocytes # (Auto) 0.3, Eosinophils # (Auto) 0.0, Basophils # (Auto) 0.0, Nucleated Red Blood Cells % (auto) 0.0, Anion Gap 9, Glomerular Filtration Rate > 60.0, Osmolality 431H, Calcium Level 8.2L, Total Bilirubin 0.3, Direct Bilirubin 0.2, Aspartate Amino Transf (AST/SGOT) 159H, Alanine Aminotransferase (ALT/SGPT) 96H, Alkaline Phosphatase 128H, Total Creatine Kinase 1888H, Total Protein 7.5, Album in 4.0, Albumin/Globulin Ratio 1.1L, Thyroid Stimulating Hormone (TSH) 0.940, Salicylates Level < 1.7L, Acetaminophen Level < 2.0L, Ethyl Alcohol Level 0.541H 02/27/20 20:36: Urine Opiates Screen NEGATIVE, Urine Methadone Screen NEGATIVE, Urine Barbiturates Screen NEGATIVE, Urine Phencyclidine Screen NEGATIVE, Urine Amphetamines Screen NEGATIVE, Urine Benzodiazepines Screen NEGATIVE, Urine Cocaine Metabolite Screen NEGATIVE, Urine Cannabinoids Screen NEGATIVE 02/28/20 07:24: Coronavirus (COVID-19)(PCR) NEGATIVE, Influenza Type A (RT-PCR) NEGATIVE, Inf luenza Type B (RT-PCR) NEGATIVE, Respiratory Syncytial Virus (PCR) NEGATIVE CBC/BMP Laboratory Tests 02/27/20 16:40 Home Medications No Active Prescriptions or Reported Meds Allergies Coded Allergies: No Known Allergies (Unverified , 11/19/19) A-FIB/CHADSVASC A-FIB History Current/History of A-Fib/PAF?: No Current PO Anticoag Therapy: No Age/Risk Factor Scoring CHADSVASC: CHADSVASC Response (Comments) Value Age Risk Factor Age < 65 years old 0 Gender Risk Factor Female 1 Hx of CHF No 0 Hx of HTN No 0 Hx of Stroke/TIA/or VTE No 0 Hx of Diabetes No 0 Hx of Vascular Disease No 0 Total 1 Treatment Treatment ordered: NONE Reason Anticoagulant not given: Not indicated/[id number] PADDY WRIGHT MD Feb 28, 2020 08:48
[2020-02-28] MEDS: ACETAMINOPHEN TAB 650MG DOSE (2X325MG) PO PRN (18:12)
[2020-02-29] VITALS (8 sets, daily range): BP systolic 118–139; BP diastolic 76–95
[2020-02-29] MEDS: LORazepam 2 MG TAB PO PRN ×5 (00:33→14:18)
[2020-02-29] MEDS: NS 1,000 ML IV SCH (04:09)
[2020-02-29 05:29] LABS: HEMATOCRIT 32.6 % (36.0-47.0); MEAN CORPUSCULAR HEMOGLOBIN 28.7 pg (27.0-33.0); MEAN CORPUSCULAR HGB CONC 32.2 g/dl (32.0-36.5); MEAN CORPUSCULAR VOLUME 89.1 fl (80.0-96.0); RED BLOOD COUNT 3.66 10^6/uL (4.00-5.40); WHITE BLOOD COUNT 3.1 10^3/uL (4.0-10.0)
[2020-02-29 05:35] LABS: HEMOGLOBIN 10.5 g/dl (12.0-15.5); PLATELET COUNT, AUTOMATED 75 10^3/uL (150-450)
[2020-02-29 05:59] LABS: ALBUMIN 2.6 GM/DL (3.2-5.2); ALT/SGPT 82 U/L (12-78); BLOOD UREA NITROGEN 4 MG/DL (7-18); CALCIUM LEVEL 8.1 MG/DL (8.5-10.1); CARBON DIOXIDE LEVEL 25 MEQ/L (21-32); CHLORIDE LEVEL 107 MEQ/L (98-107); CREATININE FOR GFR 0.43 MG/DL (0.55-1.30); GLOMERULAR FILTRATION RATE > 60.0 (>60); GLUCOSE, FASTING 86 MG/DL (70-100); POTASSIUM SERUM 3.7 MEQ/L (3.5-5.1); SODIUM LEVEL 138 MEQ/L (136-145)
[2020-02-29 06:00] LABS: BILIRUBIN,TOTAL 1.1 MG/DL (0.2-1.0)
[2020-02-29 08:42] LABS: CPK CREATINE PHOSPHOKINASE 667 U/L (26-192)
[2020-02-29 09:12] LABS: FERRITIN 196 NG/ML (8-252); IRON (FE) 212 UG/DL (50-170); PERCENT SATURATION 74.4 % (13.2-45.0); TOTAL IRON BINDING CAPACITY 285 UG/DL (250-450)
[2020-02-29] MEDS: THIAMINE 100 MG TAB PO SCH (09:33)
[2020-02-29] MEDS: MULTIVITAMINS/MINERALS THERAP 1 TAB PO SCH (09:33)
[2020-02-29] MEDS: FOLIC ACID 1 MG TAB PO SCH (09:33)
[2020-02-29 11:00] LABS: FOLATE 10.2 NG/ML; VITAMIN B12 LEVEL 516 PG/ML
[2020-02-29] MEDS: ACETAMINOPHEN TAB 650MG DOSE (2X325MG) PO PRN (12:50)
--- NOTE | 2020-02-29 13:50 | IPNPDOC ---
Text Note Date of Service The patient was seen on 02/29/20. NOTE SUBJECTIVE: -No acute complaints this morning -Has high scores on CIWA throughout yesterday, better this morning PHYSICAL EXAMINATION: VITAL SIGNS: See below. GENERAL: Awake on voice, no acute distress, appears more comfortable this morning HEENT: Normocephalic, atraumatic, PERRLA, EOMI, sclerae anicteric, dry mucous membranes NECK: Supple, trachea midline, no lymphadenopathy, no JVD CARDIOVASCULAR: Tachycardia with regular rhythm, normal S1 and S2, no noted m/r/g RESPIRATORY: Clear to auscultation bilaterally with equal air entry bilaterally. No wheezing, rhonchi, or rales. Breathing comfortably on room air ABDOMEN: Soft, nontender, nondistended, bowel sounds present, no masses or hepatosplenomegaly appreciated EXTREMITIES: No cyanosis or edema. Pulses 2+ in bilateral upper and lower extremities SKIN: [place], warm, dry NEUROLOGIC: Alert and oriented 3 to person, place and time. No focal deficits appreciated. PSYCHIATRIC: Mood and affect appropriate LABORATORY DATA: WBC 3.1 Hgb 10.5 platelets 75 Na 138 K 3.7 Cr 0.43 AST 115 ALT 85 Tbili 1.1 MICROBIOLOGY: Resp panel negative for covid-19 ASSESSMENT: 33-year-old W with history of alcohol use disorder with multiple ED visits and admissions for withdrawal, admitted for alcohol withdrawal , mild rhabdomyolysis and dehydration. PLAN: 2. Alcohol withdrawal CIWA protocol with Ativan prn. -Thiamine, folic acid and multivitamin supplementation Has been referred to outpatient treatment before, will discuss desires and plan going forward -NS at 100cc/hr Rhabdomyolysis likely 2/2 to be found down with concomitant dehydration -s/p 2L in the ED of NS -continue NS at 100cc/hr -f/u CK this morning -strict I/Os Sinus tachycardia: Likely related to dehydration as well as alcohol withdrawal. -Resolved with hydration Pancytopenia: -likely 2/2 marrow suppressive effects of chronic alcohol use disorder -will order anemia studies -will use mechanical ppx for DVT ppx DVT prophylaxis: limited by thrombocytopenia -TEDs Disposition: Admitted inpatient to med/surg with telemetry VS,Fishbone, I+O VS, Fishbone, I+O Laboratory Tests 02/29/20 05:09 Vital Signs Date Time Temp Pulse Resp B/P (MAP) Pulse Ox O2 Delivery O2 Flow Rate FiO2 02/29/20 07:54 98.6 82 18 122/85 (97) 97 Room Air I&O- Last 24 Hours up to 6 AM 02/29/20 06:00 Intake Total 4501.2 ml Output Total 2650 ml Balance 1851.2 ml PADDY WRIGHT MD Feb 29, 2020 08:28
--- NOTE | 2020-03-01 08:46 | DS.PDOC ---
Discharge Summary General Date of Admission Feb 28, 2020 at 08:24 Date of Discharge 02/29/2020 Attending Physician: PADDY WRIGHT MD Discharge Summary PROCEDURES PERFORMED DURING STAY: None ADMITTING DIAGNOSES: 1. Alcohol intoxication DISCHARGE DIAGNOSES: 1. Alcohol intoxication and eventual withdrawal 2. Mild rhabdomyolysis 3. Dehydration 4. Alcohol use disorder 5. Depression 6. Anxiety COMPLICATIONS/CHIEF COMPLAINT: Alcohol Intoxication In Active Alcoholic With Comp. HISTORY OF PRESENT ILLNESS: 34-year-old W who presented to the emergency room overnight after being found down while intoxicated and is now in april alcohol withdrawal and also suspected to be quite dehydrated. She has a history of alcohol use disorder with a history of frequent admissions for withdrawal. In the ED, she was normotensive but tachycardic to 120s, afebrile and breathing comfortably on room air. Studies showed an ethanol level of 0.55, CK 1888, Na 144, K 3.9, Cr 0.63, WBC 4, Hgb 13.8, platelets 165, AST 159, ALT 96, Tbili 0.3, alk phos 128, and given having been found unresponsive and lethargy in the ED, she had a noncon head CT that was grossly unremarkable and wnl. She was started on CIWA protocol in the ED with ativan and given 2L NS but continued to be tachycardic and dehydrated on physical exam. HOSPITAL COURSE: On admission, she was mostly lethargic but tremulous on waking and continued to be tachycardic. She was admitted to medicine for alcohol withdrawal, mild rhabdomyolysis and dehydration. She was continued on CIWA protocol with symptom triggered PO ativan with some improvement in her symptoms with frequent ativan dosing. She was also aggressively hydrated with improvement of her rhabdomyolysis with normal renal function and robust urine output. She eventually woke up fully, was alert and oriented and demanded to sign out AMA. DISCHARGE MEDICATIONS: Please see below. ALLERGIES: Please see below. PHYSICAL EXAMINATION ON DISCHARGE: VITAL SIGNS: Please see below. DID NOT EXAMINE AT ACTUAL TIME OF DISCHARGE SHE LEFT AMA BUT THAT MORNING HER EXAM WAS FOLLOWS: GENERAL: Awake on voice, no acute distress, appears more comfortable this morni ng HEENT: Normocephalic, atraumatic, PERRLA, EOMI, sclerae anicteric, dry mucous membranes NECK: Supple, trachea midline, no lymphadenopathy, no JVD CARDIOVASCULAR: Tachycardia with regular rhythm, normal S1 and S2, no noted m/r/g RESPIRATORY: Clear to auscultation bilaterally with equal air entry bilaterally. No wheezing, rhonchi, or rales. Breathing comfortably on room air ABDOMEN: Soft, nontender, nondistended, bowel sounds present, no masses or hepatosplenomegaly appreciated EXTREMITIES: No cyanosis or edema. Pulses 2+ in bilateral upper and lower extremities SKIN: [place], warm, dry NEUROLOGIC: Alert and oriented 3 to person, place and time. No focal deficits appreciated. PSYCHIATRIC: Mood and affect appropriate LABORATORY DATA: Please see below. IMAGING: None PROGNOSIS: Good with alcohol cessation. However, high risk for readmission at present. ACTIVITY: As tolerated DIET: Regular DISCHARGE PLAN: Home AMA DISPOSITION: 07 Against Medical Advice. DISCHARGE INSTRUCTIONS: 1. Left AMA. Had discussed treatment programs that she denied citing that she had done them all and was not interested to return at this time. ITEMS TO FOLLOWUP ON ON OUTPATIENT: 1. Alcohol use disorder with dependence DISCHARGE CONDITION: Stable. TIME SPENT ON DISCHARGE: 36 minutes. Vital Signs/I&Os Vital Signs Date Time Temp Pulse Resp B/P (MAP) Pulse Ox O2 Delivery O2 Flow Rate FiO2 02/29/20 14:00 90 127/76 02/29/20 12:00 98.1 18 97 Room Air I&O- Last 24 Hours up to 6 AM 03/01/20 06:00 Output Total 1000 ml Balance -1000 ml Discharge Medications No Active Prescriptions or Reported Meds Allergies Coded Allergies: No Known Allergies (Unverified , 11/19/19) PADDY WRIGHT MD Mar 01, 2020 08:46
== END 2020-02-29 16:30 | disposition left against medical advice (07) | DRG 770 ==
LOC: M ED 16:26 → EDBD 16:26 → M ED INP 02-28 08:24 → ENRESERV 02-28 09:30 → M PCU 02-28 10:28
PROVIDERS: ADMIT Internal Medicine; ATTEND Internal Medicine
DX: F10.129 Alcohol abuse with intoxication, unspecified (principal); D61.818 Other pancytopenia; M62.82 Rhabdomyolysis; F32.9 Major depressive disorder, single episode, unspecified; E86.0 Dehydration; F41.9 Anxiety disorder, unspecified; F17.200 Nicotine dependence, unspecified, uncomplicated; F10.139 Alcohol abuse with withdrawal, unspecified; Z98.84 Bariatric surgery status; Z20.828 Contact with and (suspected) exposure to other viral communicable diseases

== ENCOUNTER 2020-03-05 13:31 | Inpatient (IN) | payer OTHER ==
[~2020-03-05] VITALS: Ht 167.6 cm; Wt 68.5 kg
[2020-03-05] MEDS: ENOXAPARIN 40MG/0.4ML SYRINGE (J1650 PER 10MG) SC SCH (09:00)
[2020-03-05] MEDS ORDERED: LORazepam 2 MG/ML VIAL IV STA (13:44)
[2020-03-05] MEDS ORDERED: NS 1,000 ML IV ONE ×2 (13:45→15:00)
[2020-03-05 14:05] LABS: BASO % 0.2 % (0.0-1.0); EOS % 0.4 % (0.0-3.0); HEMOGLOBIN 11.3 g/dl (12.0-15.5); LYMPH # 1.5 10^3/uL (1.5-5.0); LYMPH % 27.3 % (24.0-44.0); MEAN CORPUSCULAR HEMOGLOBIN 28.8 pg (27.0-33.0); MEAN CORPUSCULAR HGB CONC 33.2 g/dl (32.0-36.5); MEAN CORPUSCULAR VOLUME 86.7 fl (80.0-96.0); MONO # 0.5 10^3/uL (0.0-0.8); NEUTROPHILS # 3.3 10^3/uL (1.5-8.5); NEUTROPHILS % 62.5 % (36.0-66.0); PLATELET COUNT, AUTOMATED 149 10^3/uL (150-450); RED BLOOD COUNT 3.92 10^6/uL (4.00-5.40); WHITE BLOOD COUNT 5.3 10^3/uL (4.0-10.0)
[2020-03-05 14:20] LABS: INR 1.12; PROTHROMBIN TIME 14.6 SECONDS (12.5-14.3)
[2020-03-05 14:39] LABS: HCG, SERUM QUALITATIVE NEGATIVE (NEGATIVE)
[2020-03-05 14:40] LABS: ACETAMINOPHEN LEVEL 8.1 UG/ML (10.0-30.0); ALBUMIN 3.8 GM/DL (3.2-5.2); ALT/SGPT 149 U/L (12-78); BILIRUBIN,DIRECT 0.4 MG/DL (0.0-0.2); BILIRUBIN,TOTAL 1.1 MG/DL (0.2-1.0); BLOOD UREA NITROGEN 2 MG/DL (7-18); CALCIUM LEVEL 8.2 MG/DL (8.5-10.1); CARBON DIOXIDE LEVEL 20 MEQ/L (21-32); CHLORIDE LEVEL 87 MEQ/L (98-107); CPK CREATINE PHOSPHOKINASE 3334 U/L (26-192); CREATININE FOR GFR 0.54 MG/DL (0.55-1.30); ETHYL ALCOHOL (ETHANOL) 0.225 % (0.000-0.010); GLOMERULAR FILTRATION RATE > 60.0 (>60); GLUCOSE, FASTING 86 MG/DL (70-100); MAGNESIUM LEVEL 1.6 MG/DL (1.8-2.4); POTASSIUM SERUM 3.8 MEQ/L (3.5-5.1); SALICYLATE LEVEL < 1.7 MG/DL (5.0-30.0); SODIUM LEVEL 121 MEQ/L (136-145); TOTAL PROTEIN 7.5 GM/DL (6.4-8.2)
[2020-03-05] MEDS ORDERED: D5W/0.45% SODIUM CHLORIDE 1,000 ML IV SCH (16:15)
[2020-03-05 16:17] LABS: AMPHETAMINES LEVEL URINE NEGATIVE (NEGATIVE); BARBITURATES URINE NEGATIVE (NEGATIVE); BENZODIAZEPINES URINE NEGATIVE (NEGATIVE); CANNABINOIDS URINE NEGATIVE (NEGATIVE); COCAINE METABOLITE URINE NEGATIVE (NEGATIVE); METHADONE URINE NEGATIVE (NEGATIVE); OPIATES URINE NEGATIVE (NEGATIVE); PHENCYCLIDINE URINE NEGATIVE (NEGATIVE)
[2020-03-05 16:25] LABS: RSV AMPLIFICATION NEGATIVE (NEGATIVE)
[2020-03-05] MEDS ORDERED: MAG SULF 1GM/100ML (MAG RUN) 1 GM in IV 1 EA IV ONE ×7 (17:00→20:00)
[2020-03-05] MEDS: THIAMINE 200MG/2ML VIAL (J3411 PER 100MG) IM SCH (17:32)
[2020-03-05 18:40] VITALS: BP 129/80
[2020-03-05 18:41] LABS: BLOOD UREA NITROGEN 2 MG/DL (7-18); CALCIUM LEVEL 7.6 MG/DL (8.5-10.1); CARBON DIOXIDE LEVEL 21 MEQ/L (21-32); CHLORIDE LEVEL 102 MEQ/L (98-107); CREATININE FOR GFR 0.37 MG/DL (0.55-1.30); GLOMERULAR FILTRATION RATE > 60.0 (>60); GLUCOSE, FASTING 77 MG/DL (70-100); POTASSIUM SERUM 4.7 MEQ/L (3.5-5.1); SODIUM LEVEL 136 MEQ/L (136-145)
--- NOTE | 2020-03-05 19:58 | HPEPDOC ---
General Date of Admission Mar 05, 2020 at 16:02 Date of Service: Mar 05, 2020 Attending Physician: CAROL GAITAN DO Chief Complaint The patient is a 34-year-old female admitted with a reason for visit of Alcohol Abuse With Intoxication. Source: RN/MD History of Present Illness Ms. Beckford is a 34 year old female here with alcohol abuse with intoxi cation. She was recently here from 02/28/2020 to 03/01/2020 for alcohol abuse with intoxication and going through withdrawal. She had signed out against medical advice during that hospitalization. This time, she was brought through the ED intoxicated with alcohol level of 0.225 (less than 0.541 on last admission). Patient was given 2mg of IV ativan for agitation and was very lethargic when I saw her. She is arousable, but does falls asleep quickly. She reports drinking yesterday. Her last drink was this morning. She reports 1 beer. Denies fever, chest pain, dyspnea, or abdominal pain. In addition, she was given 1L of NS in the ED for rhabdomyolysis. Home Medications No Active Prescriptions or Reported Meds Allergies Coded Allergies: No Known Allergies (Unverified , 11/19/19) Past Medical History Medical History 1. Anxiety. 2. Depression. 3. Alcohol abuse. Surgical History 1. Bariatric surgery 2 years ago at [facility] Social History * Smoker: current smoker Alcohol: heavy Drugs: denies A-FIB/CHADSVASC A-FIB History Current/History of A-Fib/PAF?: No Review of Systems Constitutional: Denies: Fever ENT: Denies: Head Aches Pulmonary: Denies: Dyspnea Cardiovascular: Denies: Chest Pain Gastrointestinal: Denies: Abdominal Pain Genitourinary: Denies: Dysuria Neurological: Reports: Other Symptoms (sedation) Other systems Due to lethargy 2/2 Ativan, limited review of systems was obtained since she stopped answering questions to sleep Physical Examination General Exam: Positive: Cooperative; Negative: Alert Eye Exam: Positive: EOMI; Negative: Sclera icteric ENT Exam: Positive: Atraumatic Neck Exam: Positive: Supple Chest Exam: Positive: Clear to auscultation Heart Exam: Positive: Tachycardic, Regular Rhythm Abdomen Exam: Positive: Normal bowel sounds, Soft Extremity Exam: Negative: Edema Skin Exam: Positive: Nl turgor and temperature Psych Exam: Negative: Mental status NL (sedated) Vital Signs Vital Signs Date Time Temp Pulse Resp B/P (MAP) Pulse Ox O2 Delivery O2 Flow Rate FiO2 03/05/20 16:45 109 16 112/70 (84) 95 Room Air 03/05/20 13:31 98.2 Laboratory Data Labs 24H Laboratory Tests 2 03/05/20 13:51: Immature Granulocyte % (Auto) 0.6, Neutrophils (%) (Auto) 62.5, Lymphocytes (%) (Auto) 27.3, Monocytes (%) (Auto) 9.0H, Eosinophils (%) (Auto) 0.4, Basophils (%) (Auto) 0.2, Neutrophils # (Auto) 3.3, Lymphocytes # (Auto) 1.5, Monocytes # (Auto) 0.5, Eosinophils # (Auto) 0.0, Basophils # (Auto) 0.0, Nucleated Red Blood Cells % (auto) 0.0, Prothrombin Time 14.6H, Prothromb Time International Ratio 1.12, Anion Gap 14, Glomerular Filtration Rate > 60.0, Calcium Level 8.2L, Magnesium Level 1.6L, Total Bilirubin 1.1H, Direct Bilirubin 0.4H, Aspartate Amino Transf (AST/SGOT) 215H, Alanine Aminotransferase (ALT/SGPT) 149H, Alkaline Phosphatase 119H, Total Creatine Kinase 3334H, Total Protein 7.5, Albumin 3.8, Albumin/Globulin Ratio 1.0L, Thyroid Stimulating Hormone (TSH) 1.880, Human Chorionic Gonadotropin, Qual NEGATIVE, Salicylates Level < 1.7L, Acetaminophen Level 8.1L, Ethyl Alcohol Level 0.225H 03/05/20 15:31: Urine Opiates Screen NEGATIVE, Urine Methadone Screen NEGATIVE, Urine Barbiturates Screen NEGATIVE, Urine Phencyclidine Screen NEGATIVE, Urine Amphetamines Screen NEGATIVE, Urine Benzodiazepines Screen NEGATIVE, Urine Cocaine Metabolite Screen NEGATIVE, Urine Cannabinoids Screen NEGATIVE, Coronavirus (COVID-19)(PCR) NEGATIVE, Influenza Type A (RT-PCR) NEGATIVE, Influenza Type B (RT-PCR) NEGATIVE, Respiratory Syncytial Virus (PCR) NEGATIVE CBC/BMP Laboratory Tests 03/05/20 13:51 Assessment/Plan Ms. Beckford is a 34 year old female here with alcohol abuse with intoxication. Labs were suggestive for rhabdomyolysis and hyponatremia. With 1L of NS, her hyponatremia corrected quickly from 121 to 136. Reached out to nephrology. They suspect that the 121 may be a diluted sample and not an accur ate sodium level. Recommended trying D5W for now and BMP rechecks. Otherwise, receiving fluid for rhabdomyolysis. CIWA protocol, thiamine, folic acid, and multivitamin for alcohol abuse. Plan / VTE VTE Prophylaxis Ordered?: Yes Plan Plan 1. Alcohol intoxication -Alcohol level today is 0.225. Last admission (02/27/2020), it was 0.541 -[facility] protocol -Thiamine, Folic acid, multivitamin 2. Hyponatremia -Initial sodium was 121. -Corrected too quickly with 1L of NS. Nephrology is suspecting the 121 may be dilutional -D5W and frequent rechecks 3. Rhabdomyolysis -Repeat CPK in the morning -IVF 4. GI ppx -Protonix 5. DVT ppx -Lovenox CAROL GAITAN DO Mar 05, 2020 17:19
[2020-03-05 20:00] VITALS: BP 124/78
[2020-03-05] MEDS: D5W 1,000 ML IV SCH (20:13)
[2020-03-05] MEDS: LORazepam 2 MG TAB PO PRN ×2 (21:16→21:17)
[2020-03-05 22:00] VITALS: BP 135/79
[2020-03-05 22:35] LABS: BLOOD UREA NITROGEN 1 MG/DL (7-18); CARBON DIOXIDE LEVEL 25 MEQ/L (21-32); CHLORIDE LEVEL 103 MEQ/L (98-107); CREATININE FOR GFR 0.48 MG/DL (0.55-1.30); GLOMERULAR FILTRATION RATE > 60.0 (>60); GLUCOSE, FASTING 122 MG/DL (70-100); POTASSIUM SERUM 3.7 MEQ/L (3.5-5.1); SODIUM LEVEL 137 MEQ/L (136-145)
[2020-03-06] VITALS (11 sets, daily range): BP systolic 120–136; BP diastolic 77–92
[2020-03-06] MEDS: ACETAMINOPHEN TAB 650MG DOSE (2X325MG) PO PRN (00:23)
[2020-03-06] MEDS: LORazepam 2 MG TAB PO PRN ×5 (02:14→22:17)
[2020-03-06 02:51] LABS: BLOOD UREA NITROGEN 2 MG/DL (7-18); CALCIUM LEVEL 8.1 MG/DL (8.5-10.1); CARBON DIOXIDE LEVEL 28 MEQ/L (21-32); CHLORIDE LEVEL 102 MEQ/L (98-107); CREATININE FOR GFR 0.53 MG/DL (0.55-1.30); GLOMERULAR FILTRATION RATE > 60.0 (>60); GLUCOSE, FASTING 107 MG/DL (70-100); POTASSIUM SERUM 3.4 MEQ/L (3.5-5.1); SODIUM LEVEL 136 MEQ/L (136-145)
[2020-03-06] MEDS: D5W 1,000 ML IV SCH (03:33)
[2020-03-06 06:02] LABS: HEMATOCRIT 32.9 % (36.0-47.0); MEAN CORPUSCULAR HEMOGLOBIN 29.2 pg (27.0-33.0); MEAN CORPUSCULAR HGB CONC 33.4 g/dl (32.0-36.5); MEAN CORPUSCULAR VOLUME 87.3 fl (80.0-96.0); PLATELET COUNT, AUTOMATED 114 10^3/uL (150-450); RED BLOOD COUNT 3.77 10^6/uL (4.00-5.40); WHITE BLOOD COUNT 2.8 10^3/uL (4.0-10.0)
[2020-03-06 06:26] LABS: BLOOD UREA NITROGEN 2 MG/DL (7-18); CALCIUM LEVEL 7.7 MG/DL (8.5-10.1); CARBON DIOXIDE LEVEL 28 MEQ/L (21-32); CHLORIDE LEVEL 100 MEQ/L (98-107); CREATININE FOR GFR 0.45 MG/DL (0.55-1.30); GLOMERULAR FILTRATION RATE > 60.0 (>60); GLUCOSE, FASTING 98 MG/DL (70-100); MAGNESIUM LEVEL 2.8 MG/DL (1.8-2.4); POTASSIUM SERUM 3.2 MEQ/L (3.5-5.1); SODIUM LEVEL 136 MEQ/L (136-145)
[2020-03-06 06:49] LABS: ALBUMIN 3.3 GM/DL (3.2-5.2); BILIRUBIN,DIRECT 0.5 MG/DL (0.0-0.2); BILIRUBIN,TOTAL 1.4 MG/DL (0.2-1.0); TOTAL PROTEIN 6.6 GM/DL (6.4-8.2)
[2020-03-06] MEDS ORDERED: POTASSIUM CHLORIDE 10 MEQ SR TABLET PO ONE (07:30)
[2020-03-06] MEDS: MULTIVITAMINS/MINERALS THERAP 1 TAB PO SCH (08:07)
[2020-03-06] MEDS: PANTOPRAZOLE 40MG TAB (PROTONIX) PO SCH (08:07)
[2020-03-06] MEDS: FOLIC ACID 1 MG TAB PO SCH (08:07)
[2020-03-06] MEDS: THIAMINE 200MG/2ML VIAL (J3411 PER 100MG) IM SCH (08:08)
[2020-03-06] MEDS: ENOXAPARIN 40MG/0.4ML SYRINGE (J1650 PER 10MG) SC SCH (08:09)
[2020-03-06 10:36] LABS: BLOOD UREA NITROGEN 3 MG/DL (7-18); CARBON DIOXIDE LEVEL 27 MEQ/L (21-32); CHLORIDE LEVEL 100 MEQ/L (98-107); CREATININE FOR GFR 0.44 MG/DL (0.55-1.30); GLOMERULAR FILTRATION RATE > 60.0 (>60); GLUCOSE, FASTING 121 MG/DL (70-100); POTASSIUM SERUM 3.5 MEQ/L (3.5-5.1); SODIUM LEVEL 135 MEQ/L (136-145)
[2020-03-06] MEDS: KCL 20MEQ IN D5/0.45NS 1000ML 1,000 ML IV SCH ×2 (11:14→22:21)
--- NOTE | 2020-03-06 13:19 | ECGEPIP ---
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
--- NOTE | 2020-03-06 13:28 | CR ---
NEPHROLOGY CONSULTATION DATE: 03/06/2020 NOTE: I discussed the care of the patient with the admitting physician last evening and gave recommendations over the phone. The patient is seen this morning. REASON FOR CONSULTATION: Hyponatremia with rapid correction. HISTORY OF PRESENT ILLNESS: Ms. Beckford is a female with a history of recurrent alcohol abuse and intoxication. Apparently she was admitted to [facility] just last week with a similar problem. She was brought to the Emergency Room again last night with intoxication. Her alcohol level was 0.225. Her sodium level was initially reported at 121. She was tachycardic and hypotensive due to which she received one liter of normal saline as her CPK level was noticed to be elevated at about 3,000 and she was felt to have rhabdomyolysis. Initial sodium level was 121 and a repeat sodium level came back at 136 due to which I was called. I discussed the care plan with the admitting physician last evening. PAST MEDICAL HISTORY: The patient's past medical history is significant for: 1. Anxiety. 2. Depression. 3. Chronic alcohol abuse. PAST SURGICAL HISTORY: The patient's past surgical history is significant for gastric bypass surgery. MEDICATIONS: The patient does not take any reported prescription medications. ALLERGIES: She has no known drug allergies. PERSONAL AND SOCIAL HISTORY: The patient is an active smoker and drinks heavily. She denies any recreational drug use. FAMILY HISTORY: Noncontributory. REVIEW OF SYSTEMS: Apparently she was poorly responsive at the time of admission. This morning she feels very tired. This morning she feels very tired and achy all over. She has a mild headache. Ears, nose and throat are unremarkable. Cardiovascular system is negative for dyspnea or chest pain. Respiratory system negative for cough or hemoptysis. GI system is negative for vomiting or diarrhea. She has not eaten as yet. She did take a few sips of liquid. Genitourinary system negative for dysuria or hematuria. Endocrine system negative for diabetes or thyroid problems. Hematological system negative for easy bruising or excessive bleeding. Psychosocial system is significant for anxiety and depression. Neurological system is negative for seizures or stroke known. She was intoxicated last evening but is sitting at the edge of the bed now and able to answer simple questions though she still feels very tired. Musculoskeletal system is significant for mild rhabdomyolysis on her lab work but denies any trauma. She has aches all over her body. PHYSICAL EXAMINATION: VITAL SIGNS: Temperature 98 degrees Fahrenheit, heart rate 90 per minute and respiratory rate 18 per minute, blood pressure 124/92 mm of mercury and oxygen saturation is 93% on room air. HEENT: Head is atraumatic. NECK: Supple and without JVD or thyroid enlargement. HEART: Regular. LUNGS: Clear to auscultation. ABDOMEN: Soft and bowel sounds are normal. EXTREMITIES: Without any cyanosis or clubbing. NEUROLOGICALLY: She is awake, able to answer questions and walking with assistance. LABORATORY STUDIES: Last evening labs showed a WBC of 5.3, hemoglobin 11.3 and hematocrit 34.0. Today WBC count is 2.8, hemoglobin 11 and hematocrit 32, platelets 114. On admission her initial sodium was reported 121 and potassium 3.8, last chloride was 87 and BUN 2. Calcium 8.2, magnesium 1.6, total bilirubin 1.1, AST 215, ALT 149, and a CPK level 3,334. Albumin was 3.8 and TSH 1.880. These labs were drawn on March 05 at 1:51 PM. She had another lab drawn at 6:00 PM on the same day which showed sodium 136 and potassium 4.7, albumin was and creatinine 0.37. After these labs, I was contacted over the phone. In any event, she did receive some normal saline in the Emergency Room before her labs came back due to possible rhabdomyolysis as her initial CPK level was elevated. At my recommendation, her IV fluid was changed to D5W and since then her sodium level has been stable at 136 to 137. This morning her potassium is 3.2, CO2 28, BUN 2 and creatinine 0.45. PROBLEMS: 1. Hyponatremia I suspect a lab error on her initial labs as correction of sodium from 121 to 136 with just one liter of normal saline is not possible. She did have significant alcohol and may have another metabolizable agent. We do not know what kind of alcohol that she drank. In any event, she has been given D5W and no sodium change noticed, though her potassium level did drop down to 3.2. I would suggest to continue to monitor her closely. She has no neurological symptoms so far. We will add some potassium in the IV fluids and also giving her potassium supplement by mouth. Electrolytes will be checked again in a few hours. I think we can switch her to D5 half normal saline with 20 mEq potassium chloride. 2. Rhabdomyolysis she did have a CPK level of 3,334 last evening. This morning CPK was down to 1,815. At this point there is no risk for renal failure from rhabdomyolysis. We will continue some IV hydration until her oral intake improves. 3. Hypokalemia - potassium has been replaced and we will add some potassium in the IV fluids also. 4. Recurrent alcohol intoxication - The patient had a similar problem just last week when she was admitted and then she signed out against medical advice. She is at risk for withdrawal symptoms. Hospitalist Service is managing her. Thank you for involving me in the care of Ms. Beckford.
[2020-03-06 14:39] LABS: BLOOD UREA NITROGEN 3 MG/DL (7-18); CALCIUM LEVEL 8.5 MG/DL (8.5-10.1); CARBON DIOXIDE LEVEL 28 MEQ/L (21-32); CHLORIDE LEVEL 105 MEQ/L (98-107); CREATININE FOR GFR 0.41 MG/DL (0.55-1.30); GLOMERULAR FILTRATION RATE > 60.0 (>60); GLUCOSE, FASTING 107 MG/DL (70-100); POTASSIUM SERUM 3.8 MEQ/L (3.5-5.1); SODIUM LEVEL 137 MEQ/L (136-145)
--- NOTE | 2020-03-06 19:10 | IPNPDOC ---
Subjective Date Seen The patient was seen on 03/06/20. Subjective Chief Complaint/HPI Ms. Beckford is a 34 year old female here with alcohol abuse with intoxication. This morning, she did not feel well. She felt that she was going through withdrawal. She is anxious and nauseous. Denies dyspnea or chest pain. She is neurologically intact Objective Physical Examination General Exam: Positive: Cooperative; Negative: Alert Eye Exam: Positive: EOMI; Negative: Sclera icteric ENT Exam: Positive: Atraumatic Neck Exam: Positive: Supple Chest Exam: Positive: Clear to auscultation Heart Exam: Positive: Tachycardic, Regular Rhythm Abdomen Exam: Positive: Normal bowel sounds, Soft Extremity Exam: Negative: Edema Skin Exam: Positive: Nl turgor and temperature Psych Exam: Negative: Mental status NL (sedated) Assessment /Plan Assessment Ms. Beckford is a 34 year old female here with alcohol abuse with intoxication. Labs were suggestive for rhabdomyolysis and hyponatremia. With 1L of NS, her hyponatremia corrected quickly from 121 to 136. Reached out to nephrology. They suspect that the 121 may be a diluted sample and not an accurate sodium level. No neurological deficits the following day. Otherwise, receiving fluid for rhabdomyolysis. CIWA protocol, thiamine, folic acid, and multivitamin for alcohol abuse. Plan/VTE VTE Prophylaxis Ordered?: Yes Plan 1. Alcohol intoxication -Alcohol level on admission is 0.225. Last admission (02/27/2020), it was 0.541 -[facility] protocol -Thiamine, Folic acid, multivitamin 2. Factitious Hyponatremia -Sodium of 121 was a false number 3. Rhabdomyolysis -Repeat CPK in the morning -IVF 4. GI ppx -Protonix 5. DVT ppx -Lovenox Disposition: Pending improvement in symptoms and rhabdomyolysis VS, I&O, 24H, Fishbone Vital Signs/I&O Vital Signs Date Time Temp Pulse Resp B/P (MAP) Pulse Ox O2 Delivery O2 Flow Rate FiO2 03/06/20 17:29 118 136/84 03/06/20 16:33 97.8 18 97 Room Air I&O- Last 24 Hours up to 6 AM 03/06/20 06:00 Intake Total 3160 ml Output Total 0 ml Balance 3160 ml Laboratory Data 24H LABS Laboratory Tests 2 03/05/20 21:53: Anion Gap 9, Glomerular Filtration Rate > 60.0, Calcium Level 8.0L 03/06/20 02:03: Anion Gap 6L, Glomerular Filtration Rate > 60.0, Calcium Level 8.1L 03/06/20 04:53: Anion Gap 8, Glomerular Filtration Rate > 60.0, Calcium Level 7.7L, Nucleated Red Blood Cells % (auto) 0.0, Magnesium Level 2.8H, Total Bilirubin 1.4H, Direct Bilirubin 0.5H, Aspartate Amino Transf (AST/SGOT) 154H, Alanine Aminotransferase (ALT/SGPT) 119H, Alkaline Phosphatase 113, Total Creatine Kinase 1815H, Total Pr otein 6.6, Albumin 3.3, Albumin/Globulin Ratio 1.0L 03/06/20 09:58: Anion Gap 8, Glomerular Filtration Rate > 60.0, Calcium Level 8.0L 03/06/20 13:48: Anion Gap 4L, Glomerular Filtration Rate > 60.0, Calcium Level 8.5 CBC/BMP Laboratory Tests 03/05/20 21:53 03/06/20 02:03 03/06/20 04:53 03/06/20 09:58 03/06/20 13:48 CAROL GAITAN DO Mar 06, 2020 19:10
[2020-03-07] VITALS (9 sets, daily range): BP systolic 120–129; BP diastolic 80–88
[2020-03-07] MEDS: ACETAMINOPHEN TAB 650MG DOSE (2X325MG) PO PRN (00:25)
[2020-03-07] MEDS: LORazepam 2 MG TAB PO PRN ×3 (03:20→22:17)
[2020-03-07 06:22] LABS: HEMATOCRIT 33.4 % (36.0-47.0); MEAN CORPUSCULAR HGB CONC 32.9 g/dl (32.0-36.5); PLATELET COUNT, AUTOMATED 122 10^3/uL (150-450); RED BLOOD COUNT 3.67 10^6/uL (4.00-5.40); WHITE BLOOD COUNT 2.7 10^3/uL (4.0-10.0)
[2020-03-07 06:49] LABS: ALBUMIN 2.9 GM/DL (3.2-5.2); BILIRUBIN,DIRECT 0.3 MG/DL (0.0-0.2); BILIRUBIN,TOTAL 0.9 MG/DL (0.2-1.0); MAGNESIUM LEVEL 2.2 MG/DL (1.8-2.4)
[2020-03-07] MEDS: PANTOPRAZOLE 40MG TAB (PROTONIX) PO SCH (08:31)
[2020-03-07] MEDS: FOLIC ACID 1 MG TAB PO SCH (08:31)
[2020-03-07] MEDS: THIAMINE 200MG/2ML VIAL (J3411 PER 100MG) IM SCH (08:31)
[2020-03-07] MEDS: MULTIVITAMINS/MINERALS THERAP 1 TAB PO SCH (08:31)
[2020-03-07] MEDS: ENOXAPARIN 40MG/0.4ML SYRINGE (J1650 PER 10MG) SC SCH (08:32)
[2020-03-07] MEDS: KCL 20MEQ IN D5/0.45NS 1000ML 1,000 ML IV SCH (11:16)
--- NOTE | 2020-03-07 14:46 | IPN ---
PROGRESS NOTE DATE: 03/07/2020 Ms. Beckford was seen yesterday due to rapid correction of her hyponatremia. She has remained asymptomatic, and her sodium level has been stable. Yesterday her sodium level did go down to as low as 135; however, then later in the day it was up to 137 again. At this point, I am not contributing anything to her care and signing off the case.
--- NOTE | 2020-03-07 20:30 | IPNPDOC ---
Subjective Date Seen The patient was seen on 03/07/20. Subjective Chief Complaint/HPI Ms. Beckford is a 34 year old female here with alcohol abuse with intoxication. Today, she feels anxious and nauseous. She wants to detox. Ot herwise denies dyspnea or chest pain Objective Physical Examination General Exam: Positive: Cooperative; Negative: Alert Eye Exam: Positive: EOMI; Negative: Sclera icteric ENT Exam: Positive: Atraumatic Neck Exam: Positive: Supple Chest Exam: Positive: Clear to auscultation Heart Exam: Positive: Tachycardic, Regular Rhythm Abdomen Exam: Positive: Normal bowel sounds, Soft Extremity Exam: Negative: Edema Skin Exam: Positive: Nl turgor and temperature Neuro Exam: Positive: Normal Speech, Cranial Nerves 3-12 NL Psych Exam: Positive: Anxiety Assessment /Plan Assessment Ms. Beckford is a 34 year old female here with alcohol abuse with intoxication. Labs were suggestive for rhabdomyolysis and hyponatremia. With 1L of NS, her hyponatremia corrected quickly from 121 to 136. Reached out to nephrology. The 121 is a diluted sample and not an accurate sodium level. No neurological deficits the following day. Otherwise, receiving fluid for rhabdomyolysis. CIWA protocol, thiamine, folic acid, and multivitamin for alcohol abuse. Plan/VTE VTE Prophylaxis Ordered?: Yes Plan 1. Alcohol intoxication -Alcohol level on admission is 0.225. Last admission (02/27/2020), it was 0.541 -[facility] protocol -Thiamine, Folic acid, multivitamin 2. Factitious Hyponatremia -Sodium of 121 was a false number 3. Rhabdomyolysis -Repeat CPK in the morning -IVF 4. GI ppx -Protonix 5. DVT ppx -Lovenox Disposition: Pending improvement in symptoms and rhabdomyolysis VS, I&O, 24H, [place] Vital Signs/I&O Vital Signs Date Time Temp Pulse Resp B/P (MAP) Pulse Ox O2 Delivery O2 Flow Rate FiO2 03/07/20 14:04 102 124/83 03/07/20 14:00 98.1 19 99 Room Air I&O- Last 24 Hours up to 6 AM 03/07/20 06:00 Intake Total 4920 ml Output Total 0 ml Balance 4920 ml Laboratory Data 24H LABS Laboratory Tests 2 03/07/20 06:01: Nucleated Red Blood Cells % (auto) 0.0, Magnesium Level 2.2, Total Bilirubin 0.9, Direct Bilirubin 0.3H, Aspartate Amino Transf (AST/SGOT) 88H, Alanine Aminotransferase (ALT/SGPT) 93H, Alkaline Phosphatase 107, Total Creatine Kinase 701H, Total Protein 6.0L, Albumin 2.9L, Albumin/Globulin Ratio 0.9L CBC/BMP Laboratory Tests 03/07/20 06:01 CAROL GAITAN DO Mar 07, 2020 20:30
[2020-03-08] VITALS (8 sets, daily range): BP systolic 106–126; BP diastolic 66–86
[2020-03-08] MEDS: LORazepam 2 MG TAB PO PRN ×3 (02:13→14:34)
[2020-03-08] MEDS: KCL 20MEQ IN D5/0.45NS 1000ML 1,000 ML IV SCH ×2 (04:11→15:28)
[2020-03-08 05:12] LABS: HEMATOCRIT 32.7 % (36.0-47.0); HEMOGLOBIN 10.7 g/dl (12.0-15.5); MEAN CORPUSCULAR HEMOGLOBIN 30.2 pg (27.0-33.0); MEAN CORPUSCULAR HGB CONC 32.7 g/dl (32.0-36.5); MEAN CORPUSCULAR VOLUME 92.4 fl (80.0-96.0); PLATELET COUNT, AUTOMATED 149 10^3/uL (150-450); RED BLOOD COUNT 3.54 10^6/uL (4.00-5.40)
[2020-03-08 05:41] LABS: ALT/SGPT 92 U/L (12-78); BILIRUBIN,DIRECT 0.2 MG/DL (0.0-0.2); BILIRUBIN,TOTAL 0.6 MG/DL (0.2-1.0); CPK CREATINE PHOSPHOKINASE 354 U/L (26-192); TOTAL PROTEIN 5.9 GM/DL (6.4-8.2)
[2020-03-08 05:42] LABS: ALBUMIN 2.9 GM/DL (3.2-5.2)
[2020-03-08 08:04] LABS: BLOOD UREA NITROGEN 5 MG/DL (7-18); CALCIUM LEVEL 8.8 MG/DL (8.5-10.1); CARBON DIOXIDE LEVEL 26 MEQ/L (21-32); CHLORIDE LEVEL 109 MEQ/L (98-107); CREATININE FOR GFR 0.47 MG/DL (0.55-1.30); GLOMERULAR FILTRATION RATE > 60.0 (>60); GLUCOSE, FASTING 104 MG/DL (70-100); POTASSIUM SERUM 3.8 MEQ/L (3.5-5.1); SODIUM LEVEL 141 MEQ/L (136-145)
[2020-03-08] MEDS: ENOXAPARIN 40MG/0.4ML SYRINGE (J1650 PER 10MG) SC SCH (09:00)
[2020-03-08] MEDS: FOLIC ACID 1 MG TAB PO SCH (09:52)
[2020-03-08] MEDS: MULTIVITAMINS/MINERALS THERAP 1 TAB PO SCH (09:52)
[2020-03-08] MEDS: PANTOPRAZOLE 40MG TAB (PROTONIX) PO SCH (09:52)
[2020-03-08] MEDS: THIAMINE 200MG/2ML VIAL (J3411 PER 100MG) IM SCH (09:53)
[2020-03-08] MEDS: chlordiazePOXIDE 25 MG CAP PO SCH ×2 (15:28→20:22)
--- NOTE | 2020-03-08 17:52 | IPNPDOC ---
Subjective Date Seen The patient was seen on 03/08/20. Subjective Chief Complaint/HPI Ms. Beckford is a 34 year old female here with alcohol abuse with intoxication and now detoxing. This morning, she was still feeling anxious and nauseous. Denies chest pain, but have dyspnea when anxiety worsens. Today is day three from her last alcoholic drink. Will start her on Librium Objective Physical Examination General Exam: Positive: Cooperative; Negative: Alert Eye Exam: Positive: EOMI; Negative: Sclera icteric ENT Exam: Positive: Atraumatic Neck Exam: Positive: Supple Chest Exam: Positive: Clear to auscultation Heart Exam: Positive: Tachycardic, Regular Rhythm Abdomen Exam: Positive: Normal bowel sounds, Soft Extremity Exam: Negative: Edema Skin Exam: Positive: Nl turgor and temperature Neuro Exam: Positive: Normal Speech, Cranial Nerves 3-12 NL Psych Exam: Positive: Anxiety Assessment /Plan Assessment Ms. Beckford is a 34 year old female here with alcohol abuse with intoxication. Labs were suggestive for rhabdomyolysis and hyponatremia. With 1L of NS, her hyponatremia corrected quickly from 121 to 136. Reached out to nephrology. The 121 is a diluted sample and not an accurate sodium level. No neurological deficits the following day. Otherwise, receiving fluid for rhabdomyolysis. CIWA protocol, thiamine, folic acid, and multivitamin for alcohol abuse. Added on Librium to her regimen Plan/VTE VTE Prophylaxis Ordered?: Yes Plan 1. Alcohol intoxication -Alcohol level on admission is 0.225. Last admission (02/27/2020), it was 0.541 -[facility] protocol -Thiamine, Folic acid, multivitamin -Added Librium to help with the withdrawal 2. Factitious Hyponatremia -Sodium of 121 was a false number 3. Rhabdomyolysis -CPK improved -IVF 4. GI ppx -Protonix 5. DVT ppx -Lovenox Disposition: Pending improvement in symptoms and rhabdomyolysis VS, I&O, 24H, Fishbone Vital Signs/I&O Vital Signs Date Time Temp Pulse Resp B/P (MAP) Pulse Ox O2 Delivery O2 Flow Rate FiO2 03/08/20 14:31 92 106/72 03/08/20 14:00 98.0 17 97 Room Air I&O- Last 24 Hours up to 6 AM 03/08/20 06:00 Intake Total 3780 ml Output Total 1600 ml Balance 2180 ml Laboratory Data 24H LABS Laboratory Tests 2 03/08/20 04:45: Nucleated Red Blood Cells % (auto) 0.0, Anion Gap 6L, Glomerular Filtration Rate > 60.0, Calcium Level 8.8, Magnesium Level 2.0, Total Bilirubin 0.6, Direct Bilirubin 0.2, Aspartate Amino Transf (AST/SGOT) 79H, Alanine Aminotransferase (ALT/SGPT) 92H, Alkaline Phosphatase 103, Total Creatine Kinase 354H, Total Protein 5.9L, Albumin 2.9L, Albumin/Globulin Ratio 1.0L CBC/BMP Laboratory Tests 03/08/20 04:45 CAROL GAITAN DO Mar 08, 2020 17:52
[2020-03-09] MEDS ORDERED: hydrOXYzine 50 MG TAB PO ONE (02:00)
[2020-03-09 02:07] VITALS: BP 124/82
[2020-03-09] MEDS: LORazepam 2 MG TAB PO PRN ×2 (02:42→23:11)
[2020-03-09 06:00] VITALS: BP 103/69
[2020-03-09 07:11] LABS: HEMATOCRIT 34.5 % (36.0-47.0); HEMOGLOBIN 10.9 g/dl (12.0-15.5); MEAN CORPUSCULAR HEMOGLOBIN 29.9 pg (27.0-33.0); MEAN CORPUSCULAR HGB CONC 31.6 g/dl (32.0-36.5); MEAN CORPUSCULAR VOLUME 94.8 fl (80.0-96.0); PLATELET COUNT, AUTOMATED 205 10^3/uL (150-450); RED BLOOD COUNT 3.64 10^6/uL (4.00-5.40); WHITE BLOOD COUNT 4.9 10^3/uL (4.0-10.0)
[2020-03-09 07:34] LABS: ALT/SGPT 125 U/L (12-78); BILIRUBIN,DIRECT 0.3 MG/DL (0.0-0.2); BILIRUBIN,TOTAL 0.6 MG/DL (0.2-1.0); CPK CREATINE PHOSPHOKINASE 216 U/L (26-192); TOTAL PROTEIN 6.2 GM/DL (6.4-8.2)
[2020-03-09 08:00] VITALS: BP 110/72
[2020-03-09 08:05] LABS: BLOOD UREA NITROGEN 3 MG/DL (7-18); CALCIUM LEVEL 8.6 MG/DL (8.5-10.1); CARBON DIOXIDE LEVEL 25 MEQ/L (21-32); CHLORIDE LEVEL 111 MEQ/L (98-107); CREATININE FOR GFR 0.45 MG/DL (0.55-1.30); GLOMERULAR FILTRATION RATE > 60.0 (>60); GLUCOSE, FASTING 92 MG/DL (70-100); POTASSIUM SERUM 3.8 MEQ/L (3.5-5.1); SODIUM LEVEL 141 MEQ/L (136-145)
[2020-03-09] MEDS: FOLIC ACID 1 MG TAB PO SCH (08:36)
[2020-03-09] MEDS: MULTIVITAMINS/MINERALS THERAP 1 TAB PO SCH (08:36)
[2020-03-09] MEDS: chlordiazePOXIDE 25 MG CAP PO SCH ×3 (08:36→20:19)
[2020-03-09] MEDS: THIAMINE 200MG/2ML VIAL (J3411 PER 100MG) IM SCH (08:36)
[2020-03-09] MEDS: PANTOPRAZOLE 40MG TAB (PROTONIX) PO SCH (08:36)
[2020-03-09] MEDS: KCL 20MEQ IN D5/0.45NS 1000ML 1,000 ML IV SCH ×3 (08:36→20:18)
[2020-03-09] MEDS: ENOXAPARIN 40MG/0.4ML SYRINGE (J1650 PER 10MG) SC SCH (08:37)
--- NOTE | 2020-03-09 12:57 | IPNPDOC ---
Subjective Date Seen The patient was seen on 03/09/20. Subjective Chief Complaint/HPI Ms. Beckford is a 34 year old female here with alcohol abuse with intoxication and now detoxing. She has not been able to sleep last night. O therwise still has anxiety and nausea. Today is day four from her last alcoholic drink. Objective Physical Examination General Exam: Positive: Cooperative; Negative: Alert Eye Exam: Positive: EOMI; Negative: Sclera icteric ENT Exam: Positive: Atraumatic Neck Exam: Positive: Supple Chest Exam: Positive: Clear to auscultation Heart Exam: Positive: Tachycardic, Regular Rhythm Abdomen Exam: Positive: Normal bowel sounds, Soft Extremity Exam: Negative: Edema Skin Exam: Positive: Nl turgor and temperature Neuro Exam: Positive: Normal Speech, Cranial Nerves 3-12 NL Psych Exam: Positive: Anxiety Assessment /Plan Assessment Ms. Beckford is a 34 year old female here with alcohol abuse with in toxication. Labs were suggestive for rhabdomyolysis and hyponatremia. With 1L of NS, her hyponatremia corrected quickly from 121 to 136. Reached out to nephrology. The 121 is a diluted sample and not an accurate sodium level. No neurological deficits the following day. Otherwise, receiving fluid for rhabdomyolysis. CIWA protocol, thiamine, folic acid, and multivitamin for alcohol abuse. Continue Librium Plan/VTE VTE Prophylaxis Ordered?: Yes Plan 1. Alcohol intoxication -Alcohol level on admission is 0.225. Last admission (02/27/2020), it was 0.541 -[facility] protocol -Thiamine, Folic acid, multivitamin -Continue Librium to help with the withdrawal 2. Factitious Hyponatremia -Sodium of 121 was a false number 3. Rhabdomyolysis -Resolved 4. GI ppx -Protonix 5. DVT ppx -Lovenox Disposition: Pending improvement in symptoms VS, I&O, 24H, Fishbone Vital Signs/I&O Vital Signs Date Time Temp Pulse Resp B/P (MAP) Pulse Ox O2 Delivery O2 Flow Rate FiO2 03/09/20 08:00 117 110/72 03/09/20 06:00 98.2 18 97 Room Air I&O- Last 24 Hours up to 6 AM 03/09/20 06:00 Intake Total 3090 ml Output Total 2150 ml Balance 940 ml Laboratory Data 24H LABS Laboratory Tests 2 03/09/20 06:14: Nucleated Red Blood Cells % (auto) 0.0, Anion Gap 5L, Glomerular Filtration Rate > 60.0, Calcium Level 8.6, Magnesium Level 2.0, Total Bilirubin 0.6, Direct Bilirubin 0.3H, Aspartate Amino Transf (AST/SGOT) 141H, Alanine Aminotransferase (ALT/SGPT) 125H, Alkaline Phosphatase 103, Total Creatine Kinase 216H, Total Protein 6.2L, Albumin 3.0L, Albumin/Globulin Ratio 0.9L CBC/BMP Laboratory Tests 03/09/20 06:14 CAROL GAITAN DO Mar 09, 2020 12:57
[2020-03-09 14:00] VITALS: BP 124/80
[2020-03-09 14:12] VITALS: BP_SYST 111; BP_SYST 124; BP_DIAS 74; BP_DIAS 80
[2020-03-09 21:00] VITALS: BP 99/68
[2020-03-09] MEDS ORDERED: traZODone 50 MG TAB PO SCH (21:00)
[2020-03-10 05:27] LABS: HEMATOCRIT 33.7 % (36.0-47.0); HEMOGLOBIN 10.3 g/dl (12.0-15.5); MEAN CORPUSCULAR HEMOGLOBIN 29.2 pg (27.0-33.0); MEAN CORPUSCULAR HGB CONC 30.6 g/dl (32.0-36.5); MEAN CORPUSCULAR VOLUME 95.5 fl (80.0-96.0); PLATELET COUNT, AUTOMATED 233 10^3/uL (150-450); RED BLOOD COUNT 3.53 10^6/uL (4.00-5.40); WHITE BLOOD COUNT 4.2 10^3/uL (4.0-10.0)
[2020-03-10 05:56] LABS: ALBUMIN 2.9 GM/DL (3.2-5.2); ALT/SGPT 120 U/L (12-78); BILIRUBIN,DIRECT 0.2 MG/DL (0.0-0.2); BILIRUBIN,TOTAL 0.4 MG/DL (0.2-1.0); MAGNESIUM LEVEL 1.8 MG/DL (1.8-2.4); TOTAL PROTEIN 6.3 GM/DL (6.4-8.2)
[2020-03-10 06:00] VITALS: BP 123/78
[2020-03-10 07:08] VITALS: BP 123/78
--- NOTE | 2020-03-10 07:24 | REP ---
INDICATION: Transaminitis COMPARISON: None. TECHNIQUE: Real time nice scale ultrasound examination using curved array transducer. FINDINGS: Liver is normal in contour, size, and echogenicity without focal hepatic lesions identified. Pancreas is incompletely evaluated due to interposed bowel gas. The gallbladder is normal and without gallstones, wall thickening, or pericholecystic fluid. No biliary ductal dilatation is appreciated and the common bile duct measures 4.6 mm diameter. Right kidney is normal in reniform shape without hydronephrosis and measures 11.5 x 5.0 x 4.4 cm. No ascites in the visualized right upper quadrant. IMPRESSION: Normal limited right upper quadrant ultrasound <Electronically signed by Arsenio Vogt > 03/10/20 [id number]
[2020-03-10 08:21] LABS: BLOOD UREA NITROGEN 3 MG/DL (7-18); CALCIUM LEVEL 8.3 MG/DL (8.5-10.1); CARBON DIOXIDE LEVEL 24 MEQ/L (21-32); CHLORIDE LEVEL 108 MEQ/L (98-107); CREATININE FOR GFR 0.58 MG/DL (0.55-1.30); GLOMERULAR FILTRATION RATE > 60.0 (>60); GLUCOSE, FASTING 92 MG/DL (70-100); POTASSIUM SERUM 3.6 MEQ/L (3.5-5.1); SODIUM LEVEL 140 MEQ/L (136-145)
[2020-03-10 14:32] LABS: HEPATITIS A ANTIBODY IGM NEGATIVE (NEGATIVE); HEPATITIS B CORE ANTIBODY IGM NEGATIVE (NEGATIVE); HEPATITIS B SURFACE ANTIGEN NEGATIVE (NEGATIVE); HEPATITIS C VIRUS ABY INDEX 0.1 INDEX (<0.8)
--- NOTE | 2020-03-10 23:23 | DS.PDOC ---
Discharge Summary General Date of Admission Mar 05, 2020 at 16:02 Date of Discharge Mar 10, 2020 Attending Physician: CAROL GAITAN DO Discharge Summary PROCEDURES PERFORMED DURING STAY: None ADMITTING DIAGNOSES: 1. Alcohol intoxication and withdrawal 2. Hyponatremia 3. Rhabdomyolysis DISCHARGE DIAGNOSES: 1. Alcohol intoxication and withdrawal 2. Factitious hyponatremia 3. Rhabdomyolysis COMPLICATIONS/CHIEF COMPLAINT: Alcohol Abuse With Intoxication. HISTORY OF PRESENT ILLNESS: Ms. Beckford is a 34 year old female here with alcohol abuse with intoxication. She was recently here from 02/28/2020 to 03/01/2020 for alcohol abuse with intoxication and going through withdrawal. She had signed out against medical advice during that hospitalization. This time, she was brought through the ED intoxicated with alcohol level of 0.225 (less than 0.541 on last admission). Patient was given 2mg of IV ativan for agitation and was very lethargic when I saw her. She is arousable, but does falls asleep quickly. She reports drinking yesterday. Her last drink was this morning. She reports 1 beer. Denies fever, chest pain, dyspnea, or abdominal pain. In addition, she was given 1L of NS in the ED for rhabdomyolysis. HOSPITAL COURSE: During hospitalization, sodium corrected from 121 to 136. No neurological deficit noted. Consulted and spoke with Nephrology and found that the 121 was most likely a diluted sample. Otherwise, patient was put on thiamine, folic acid, and multivitamin. She was on CIWA protocol and PRN Ativan. She was very anxious with nausea. She was given Librium on the 3rd day of admission to help with symptoms. She wanted her IV Ativan to be more frequent or scheduled. This morning, she left AMA before I was able to see her. Vital Signs/I&Os Vital Signs Date Time Temp Pulse Resp B/P (MAP) Pulse Ox O2 Delivery O2 Flow Rate FiO2 03/10/20 07:08 96 123/78 03/10/20 06:00 97.9 17 99 Room Air I&O- Last 24 Hours up to 6 AM 03/10/20 06:00 Intake Total 3110 ml Output Total 2350 ml Balance 760 ml Laboratory Data Labs 24H Laboratory Tests 2 03/10/20 05:00: Nucleated Red Blood Cells % (auto) 0.0, Anion Gap 8, Glomerular Filtration Rate > 60.0, Calcium Level 8.3L, Magnesium Level 1.8, Total Bilirubin 0.4, Direct Bilirubin 0.2, Aspartate Amino Transf (AST/SGOT) 86H, Alanine Aminotransferase (ALT/SGPT) 120H, Alkaline Phosphatase 95, Total Protein 6.3L, Albumin 2.9L, Albumin/Globulin Ratio 0.9L, Hepatitis A IgM Antibody NEGATIVE, Hepatitis B Surface Antigen NEGATIVE, Hepatitis B Core IgM Antibody NEGATIVE, Hepatitis C Antibody Index 0.1 CBC/BMP Laboratory Tests 03/10/20 05:00 Discharge Medications No Active Prescriptions or Reported Meds Allergies Coded Allergies: No Known Allergies (Unverified , 11/19/19) CAROL GAITAN DO Mar 10, 2020 23:23
== END 2020-03-10 08:56 | disposition left against medical advice (07) | DRG 770 ==
LOC: M ED 13:31 → M ED INP 16:02 → ENRESERV 17:03 → M PCU 18:30 → M MSPAV 03-07 03:00
PROVIDERS: ADMIT Internal Medicine; ATTEND Internal Medicine
DX: F10.139 Alcohol abuse with withdrawal, unspecified (principal); M62.82 Rhabdomyolysis; E87.1 Hypo-osmolality and hyponatremia; F17.200 Nicotine dependence, unspecified, uncomplicated; F41.9 Anxiety disorder, unspecified; F32.9 Major depressive disorder, single episode, unspecified; F10.129 Alcohol abuse with intoxication, unspecified

== ENCOUNTER 2020-03-25 23:02 | Emergency (ER) | payer OTHER ==
[~2020-03-25] VITALS: Ht 167.6 cm; Wt 65.6 kg
[2020-03-25] MEDS ORDERED: LORazepam 2 MG/ML VIAL IV STA (23:19)
[2020-03-25 23:44] LABS: BASO % 0.6 % (0.0-1.0); EOS % 1.2 % (0.0-3.0); HEMATOCRIT 33.9 % (36.0-47.0); LYMPH # 0.8 10^3/uL (1.5-5.0); LYMPH % 22.7 % (24.0-44.0); MEAN CORPUSCULAR HEMOGLOBIN 30.5 pg (27.0-33.0); MEAN CORPUSCULAR HGB CONC 32.4 g/dl (32.0-36.5); MEAN CORPUSCULAR VOLUME 93.9 fl (80.0-96.0); MONO # 0.3 10^3/uL (0.0-0.8); NEUTROPHILS # 2.1 10^3/uL (1.5-8.5); NEUTROPHILS % 64.9 % (36.0-66.0); PLATELET COUNT, AUTOMATED 144 10^3/uL (150-450); RED BLOOD COUNT 3.61 10^6/uL (4.00-5.40); WHITE BLOOD COUNT 3.3 10^3/uL (4.0-10.0)
[2020-03-26] MEDS ORDERED: AZELASTINE 137MCG NASAL SPY 30 ML (ASTELIN) ONE
[2020-03-26 00:09] LABS: ALBUMIN 3.5 GM/DL (3.2-5.2); ALT/SGPT 109 U/L (12-78); AMYLASE 77 U/L (25-115); BILIRUBIN,DIRECT 0.1 MG/DL (0.0-0.2); BILIRUBIN,TOTAL 0.6 MG/DL (0.2-1.0); BLOOD UREA NITROGEN 5 MG/DL (7-18); CALCIUM LEVEL 8.6 MG/DL (8.5-10.1); CARBON DIOXIDE LEVEL 27 MEQ/L (21-32); CHLORIDE LEVEL 99 MEQ/L (98-107); CREATININE FOR GFR 0.49 MG/DL (0.55-1.30); ETHYL ALCOHOL (ETHANOL) 0.079 % (0.000-0.010); GLOMERULAR FILTRATION RATE > 60.0 (>60); GLUCOSE, FASTING 118 MG/DL (70-100); LIPASE 223 U/L (73-393); MAGNESIUM LEVEL 1.9 MG/DL (1.8-2.4); POTASSIUM SERUM 3.8 MEQ/L (3.5-5.1); SODIUM LEVEL 134 MEQ/L (136-145)
--- NOTE | 2020-03-26 00:14 | REPVR ---
PROCEDURE INFORMATION: Exam: XR Chest, 1 View Exam date and time: 03/25/2020 11:46 PM Age: 34 years old Clinical indication: Other: Fall TECHNIQUE: Imaging protocol: XR of the chest Views: 1 view. COMPARISON: CR PORTABLE CHEST X-RAY 08/16/2019 7:21 PM FINDINGS: Lungs: Unremarkable. No consolidation. Pleural space: Unremarkable. No pleural effusion. No pneumothorax. Heart/Mediastinum: Unremarkable. No cardiomegaly. Bones/joints: Unremarkable. IMPRESSION: No acute findings. Electronically signed by: Andre Hall On 03/26/2020 00:14:26 AM
--- NOTE | 2020-03-26 00:15 | REPVR ---
PROCEDURE INFORMATION: Exam: XR Right Hand Exam date and time: 03/25/2020 11:46 PM Age: 34 years old Clinical indication: Other: Fall; Additional info: Fall, pain TECHNIQUE: Imaging protocol: XR Right hand. Views: 3 or more views. COMPARISON: No relevant prior studies available. FINDINGS: Bones/joints: Mild degenerative changes in the wrist. Soft tissues: Normal. IMPRESSION: No acute fractures. Electronically signed by: Andre Hall On 03/26/2020 00:16:23 AM
[2020-03-26 02:06] LABS: RSV AMPLIFICATION NEGATIVE (NEGATIVE)
[2020-03-26] MEDS ORDERED: LORazepam 2 MG/ML VIAL IV STA ×2 (02:57→02:59)
[2020-03-26] MEDS ORDERED: LORazepam 2 MG/ML VIAL As Ordered ONE (03:01)
[2020-03-26 03:14] VITALS: BP 125/72
== END 2020-03-26 03:20 | disposition short-term general hospital (02) ==
LOC: M ED 23:02
DX: F10.239 Alcohol dependence with withdrawal, unspecified (principal); F33.9 Major depressive disorder, recurrent, unspecified; F41.9 Anxiety disorder, unspecified; F17.210 Nicotine dependence, cigarettes, uncomplicated
CPT/HCPCS: 71045; 73130; 80048; 80076; 82150; 83690; 83735; 85025; 87631; 93041; 96374; 96376; 99284; G0480; J2060

== ENCOUNTER → 2020-03-31 | Outpatient (CLI) | payer MEDICAID | LOC: M OUTALCOH 08:21 | PROVIDERS: ATTEND Psychiatry & Neurology Addiction Medicine | DX: F10.20 Alcohol dependence, uncomplicated (principal) ==

== ENCOUNTER → 2020-04-17 | Outpatient (REF) | payer OTHER ==
[2020-04-17 13:43] LABS: HEMATOCRIT 38.6 % (36.0-47.0); HEMOGLOBIN 11.9 g/dl (12.0-15.5); MEAN CORPUSCULAR HEMOGLOBIN 31.1 pg (27.0-33.0); MEAN CORPUSCULAR HGB CONC 30.8 g/dl (32.0-36.5); MEAN CORPUSCULAR VOLUME 100.8 fl (80.0-96.0); PLATELET COUNT, AUTOMATED 438 10^3/uL (150-450); RED BLOOD COUNT 3.83 10^6/uL (4.00-5.40); WHITE BLOOD COUNT 5.2 10^3/uL (4.0-10.0)
[2020-04-17 15:02] LABS: ALBUMIN 3.8 GM/DL (3.2-5.2); ALT/SGPT 58 U/L (12-78); BILIRUBIN,TOTAL 0.4 MG/DL (0.2-1.0); BLOOD UREA NITROGEN 8 MG/DL (7-18); CALCIUM LEVEL 9.9 MG/DL (8.5-10.1); CARBON DIOXIDE LEVEL 26 MEQ/L (21-32); CHLORIDE LEVEL 107 MEQ/L (98-107); CREATININE FOR GFR 0.67 MG/DL (0.55-1.30); GLOMERULAR FILTRATION RATE > 60.0 (>60); GLUCOSE, FASTING 76 MG/DL (70-100); SODIUM LEVEL 142 MEQ/L (136-145); TOTAL PROTEIN 6.9 GM/DL (6.4-8.2)
== END ==
LOC: M SFHCPLAZ 08:35
PROVIDERS: ATTEND Family Medicine
DX: F10.10 Alcohol abuse, uncomplicated (principal)

== ENCOUNTER 2020-04-18 08:45 | Outpatient (RCR) | payer MEDICAID | END 2020-04-20 | LOC: M OUTALCOH 08:45 | PROVIDERS: ATTEND Psychiatry & Neurology Psychiatry | DX: F10.20 Alcohol dependence, uncomplicated (principal) ==

== ENCOUNTER 2020-05-16 08:45 | Outpatient (RCR) | payer MEDICAID | END 2020-05-18 | LOC: M OUTALCOH 08:45 | PROVIDERS: ATTEND Psychiatry & Neurology Psychiatry | DX: F10.20 Alcohol dependence, uncomplicated (principal) ==

== ENCOUNTER 2020-06-17 13:00 | Outpatient (RCR) | payer MEDICAID | END 2020-06-18 | LOC: M OUTALCOH 13:00 | PROVIDERS: ATTEND Psychiatry & Neurology Psychiatry | DX: F10.20 Alcohol dependence, uncomplicated (principal) ==

== ENCOUNTER 2020-07-15 10:00 | Outpatient (RCR) | payer MEDICAID | END 2020-07-18 | LOC: M OUTALCOH 10:00 | PROVIDERS: ATTEND Psychiatry & Neurology Psychiatry | DX: F10.20 Alcohol dependence, uncomplicated (principal) ==

== ENCOUNTER 2020-08-11 14:41 | Outpatient (RCR) | payer MEDICAID | END 2020-08-18 | LOC: M OUTALCOH 14:41 | PROVIDERS: ATTEND Psychiatry & Neurology Psychiatry | DX: F10.20 Alcohol dependence, uncomplicated (principal) ==

== ENCOUNTER 2020-08-23 14:54 | Emergency (ER) | payer MEDICAID, OTHER ==
[~2020-08-23] VITALS: Ht 167.6 cm; Wt 65.9 kg
[2020-08-23] MEDS ORDERED: CITA40TA4 (15:23)
[2020-08-23] MEDS ORDERED: QUET25TA3 (15:23)
[2020-08-23] MEDS ORDERED: VIVI380I (15:23)
[2020-08-23] MEDS ORDERED: HYDR1CAP25 (15:23)
[2020-08-23] MEDS ORDERED: ONDANSETRON 4MG/2ML VIAL IV ONE (16:00)
[2020-08-23] MEDS ORDERED: NS 1,000 ML IV ONE (16:00)
[2020-08-23] MEDS ORDERED: OXAZEPAM 15 MG CAP PO ONE (16:00)
[2020-08-23 17:03] LABS: BASO % 0.4 % (0.0-1.0); HEMOGLOBIN 11.2 g/dl (12.0-15.5); LYMPH # 0.6 10^3/uL (1.5-5.0); LYMPH % 11.8 % (24.0-44.0); MEAN CORPUSCULAR HEMOGLOBIN 29.5 pg (27.0-33.0); MEAN CORPUSCULAR HGB CONC 32.9 g/dl (32.0-36.5); MEAN CORPUSCULAR VOLUME 89.5 fl (80.0-96.0); MONO # 0.4 10^3/uL (0.0-0.8); NEUTROPHILS # 4.3 10^3/uL (1.5-8.5); NEUTROPHILS % 80.1 % (36.0-66.0); PLATELET COUNT, AUTOMATED 221 10^3/uL (150-450); WHITE BLOOD COUNT 5.4 10^3/uL (4.0-10.0)
[2020-08-23 17:32] LABS: HCG, SERUM QUALITATIVE NEGATIVE (NEGATIVE)
[2020-08-23 17:40] LABS: ACETAMINOPHEN LEVEL < 2.0 UG/ML (10.0-30.0); ALBUMIN 3.1 GM/DL (3.2-5.2); ALT/SGPT 55 U/L (12-78); BILIRUBIN,DIRECT 0.3 MG/DL (0.0-0.2); BILIRUBIN,TOTAL 0.8 MG/DL (0.2-1.0); BLOOD UREA NITROGEN 4 MG/DL (7-18); CALCIUM LEVEL 8.5 MG/DL (8.5-10.1); CARBON DIOXIDE LEVEL 26 MEQ/L (21-32); CHLORIDE LEVEL 105 MEQ/L (98-107); CREATININE FOR GFR 0.36 MG/DL (0.55-1.30); ETHYL ALCOHOL (ETHANOL) 0.006 % (0.000-0.010); GLOMERULAR FILTRATION RATE > 60.0 (>60); GLUCOSE, FASTING 78 MG/DL (70-100); LIPASE 138 U/L (73-393); POTASSIUM SERUM 4.1 MEQ/L (3.5-5.1); SALICYLATE LEVEL < 1.7 MG/DL (5.0-30.0); SODIUM LEVEL 139 MEQ/L (136-145); TOTAL PROTEIN 6.5 GM/DL (6.4-8.2)
[2020-08-23] MEDS ORDERED: hydrOXYzine 25 MG TAB PO ONE (18:20)
[2020-08-23] MEDS ORDERED: OXAZ30CA2 PO (18:25)
[2020-08-23 19:29] VITALS: BP 128/86
== END 2020-08-23 19:49 | disposition home or self-care (01) ==
LOC: M ED 14:54
DX: F10.239 Alcohol dependence with withdrawal, unspecified (principal); Z79.899 Other long term (current) drug therapy
CPT/HCPCS: 80048; 80076; 80143; 82077; 83690; 84443; 84703; 85025; 96361; 96374; 99285; J2405

== ENCOUNTER → 2020-09-17 | Outpatient (RCR) | payer MEDICAID ==
[~2020-09-17] MED LIST changes: +CITA40TA4; +HYDR1CAP25; +OXAZ30CA2 PO; +QUET25TA3; +VIVI380I
== END ==
LOC: M OUTALCOH 08-25 15:11
PROVIDERS: ATTEND Psychiatry & Neurology Psychiatry
DX: F10.20 Alcohol dependence, uncomplicated (principal)

== ENCOUNTER 2020-09-26 14:38 | Emergency (ER) | payer MEDICAID ==
[~2020-09-26] VITALS: Ht 167.6 cm; Wt 65.4 kg
[2020-09-26 14:39] VITALS: BP 140/96
--- NOTE | 2020-09-26 15:10 | REP ---
INDICATION: TRAUMA COMPARISON: None. TECHNIQUE: Four views right hand. FINDINGS: There is a fracture at the base of the 5th proximal phalanx with very mild lateral displacement and medial angulation.There is nondisplaced fracture of the base of the 5th distal phalanx. IMPRESSION: Fracture base 5th proximal phalanx and base of 5th distal phalanx, as above. <Electronically signed by Dylon García > 09/26/20 [id number]
== END 2020-09-26 17:09 | disposition left against medical advice (07) ==
LOC: M ED 14:38
DX: Z53.21 Procedure and treatment not carried out due to patient leaving prior to being seen by health care provider (principal)

== ENCOUNTER 2020-09-28 14:27 | Emergency (ER) | payer MEDICAID, OTHER ==
[~2020-09-28] VITALS: Ht 167.6 cm; Wt 65.9 kg
[2020-09-28 14:28] VITALS: BP 126/97
[2020-09-28] MEDS ORDERED: ACAM0.05 (14:38)
== END 2020-09-28 16:48 | disposition home or self-care (01) ==
LOC: M ED 14:27
DX: S62.616A Displaced fracture of proximal phalanx of right little finger, initial encounter for closed fracture (principal); S62.636A Displaced fracture of distal phalanx of right little finger, initial encounter for closed fracture; W22.8XXA Striking against or struck by other objects, initial encounter; Y92.410 Unspecified street and highway as the place of occurrence of the external cause; I10 Essential (primary) hypertension; F33.9 Major depressive disorder, recurrent, unspecified; F20.9 Schizophrenia, unspecified; Z79.899 Other long term (current) drug therapy

== ENCOUNTER 2020-10-17 08:45 | Outpatient (RCR) | payer MEDICAID | END 2020-10-18 | LOC: M OUTALCOH 08:45 | PROVIDERS: ATTEND Psychiatry & Neurology Psychiatry | DX: F10.20 Alcohol dependence, uncomplicated (principal) ==

== ENCOUNTER → 2020-11-04 | Outpatient (CLI) | payer OTHER ==
[~2020-11-04] MED LIST changes: +QUET1TAB17; -QUET25TA3
[2020-11-04 12:51] LABS: BASO % 0.7 % (0.0-1.0); EOS # 0.1 10^3/uL (0.0-0.5); EOS % 1.7 % (0.0-3.0); HEMATOCRIT 34.4 % (36.0-47.0); HEMOGLOBIN 10.7 g/dl (12.0-15.5); LYMPH # 1.6 10^3/uL (1.5-5.0); LYMPH % 27.5 % (24.0-44.0); MEAN CORPUSCULAR HEMOGLOBIN 28.2 pg (27.0-33.0); MEAN CORPUSCULAR HGB CONC 31.1 g/dl (32.0-36.5); MEAN CORPUSCULAR VOLUME 90.5 fl (80.0-96.0); MONO # 0.5 10^3/uL (0.0-0.8); MONO % 8.7 % (2.0-8.0); NEUTROPHILS # 3.5 10^3/uL (1.5-8.5); NEUTROPHILS % 61.2 % (36.0-66.0); PLATELET COUNT, AUTOMATED 427 10^3/uL (150-450); WHITE BLOOD COUNT 5.7 10^3/uL (4.0-10.0)
[2020-11-04 13:14] LABS: ALBUMIN 3.3 GM/DL (3.2-5.2); ALT/SGPT 78 U/L (12-78); BILIRUBIN,DIRECT < 0.1 MG/DL (0.0-0.2); BILIRUBIN,TOTAL 0.2 MG/DL (0.2-1.0); BLOOD UREA NITROGEN 11 MG/DL (7-18); CARBON DIOXIDE LEVEL 26 MEQ/L (21-32); CHLORIDE LEVEL 112 MEQ/L (98-107); CREATININE FOR GFR 0.48 MG/DL (0.55-1.30); GLOMERULAR FILTRATION RATE > 60.0 (>60); GLUCOSE, FASTING 87 MG/DL (70-100); POTASSIUM SERUM 3.5 MEQ/L (3.5-5.1); SODIUM LEVEL 142 MEQ/L (136-145); TOTAL PROTEIN 6.2 GM/DL (6.4-8.2)
== END ==
LOC: M PLALAB 09:16
PROVIDERS: ATTEND Psychiatry & Neurology Psychiatry
DX: F10.20 Alcohol dependence, uncomplicated (principal)

== ENCOUNTER → 2020-11-18 | Outpatient (RCR) | payer MEDICAID | LOC: M OUTALCOH 10-20 11:03 | PROVIDERS: ATTEND Psychiatry & Neurology Psychiatry | DX: F10.20 Alcohol dependence, uncomplicated (principal) ==

== ENCOUNTER 2020-12-10 17:39 | Observation (INO) | payer OTHER, MEDICAID ==
[~2020-12-10] VITALS: Ht 167.6 cm; Wt 62.0 kg
[2020-12-10] MEDS ORDERED: ONDANSETRON 4MG/2ML VIAL IV ONE (18:15)
[2020-12-10] MEDS ORDERED: NS 1,000 ML IV ONE (18:15)
[2020-12-10 18:46] LABS: BASO % 0.1 % (0.0-1.0); HEMATOCRIT 32.8 % (36.0-47.0); HEMOGLOBIN 11.1 g/dl (12.0-15.5); LYMPH % 25.9 % (24.0-44.0); MEAN CORPUSCULAR HEMOGLOBIN 27.7 pg (27.0-33.0); MEAN CORPUSCULAR HGB CONC 33.8 g/dl (32.0-36.5); MEAN CORPUSCULAR VOLUME 81.8 fl (80.0-96.0); MONO # 0.4 10^3/uL (0.0-0.8); MONO % 5.4 % (2.0-8.0); NEUTROPHILS # 5.2 10^3/uL (1.5-8.5); NEUTROPHILS % 68.3 % (36.0-66.0); PLATELET COUNT, AUTOMATED 305 10^3/uL (150-450); RED BLOOD COUNT 4.01 10^6/uL (4.00-5.40); WHITE BLOOD COUNT 7.5 10^3/uL (4.0-10.0)
[2020-12-10 18:56] LABS: KETONE, URINE AUTO 1+ mg/dL (NEGATIVE)
[2020-12-10] MEDS ORDERED: NS 2,000 ML in IV 1 EA IV ONE (19:15)
[2020-12-10 19:24] LABS: AMPHETAMINES LEVEL URINE NEGATIVE (NEGATIVE); BARBITURATES URINE NEGATIVE (NEGATIVE); BENZODIAZEPINES URINE NEGATIVE (NEGATIVE); CANNABINOIDS URINE NEGATIVE (NEGATIVE); COCAINE METABOLITE URINE NEGATIVE (NEGATIVE); METHADONE URINE NEGATIVE (NEGATIVE); OPIATES URINE NEGATIVE (NEGATIVE); PHENCYCLIDINE URINE NEGATIVE (NEGATIVE)
[2020-12-10 19:28] LABS: HCG, SERUM QUALITATIVE NEGATIVE (NEGATIVE)
[2020-12-10] MEDS ORDERED: LORazepam 2 MG/ML VIAL IV STA (19:42)
[2020-12-10 19:45] LABS: OSMOLALITY SERUM 317 MOSM/KG (275-295)
[2020-12-10 19:47] LABS: ACETAMINOPHEN LEVEL < 2.0 UG/ML (10.0-30.0); ACETONE/KETONE 1.32 MG/DL (<2.81); ALBUMIN 3.5 GM/DL (3.2-5.2); ALT/SGPT 41 U/L (12-78); BILIRUBIN,DIRECT 0.2 MG/DL (0.0-0.2); BILIRUBIN,TOTAL 0.7 MG/DL (0.2-1.0); BLOOD UREA NITROGEN 2 MG/DL (7-18); CALCIUM LEVEL 8.7 MG/DL (8.5-10.1); CARBON DIOXIDE LEVEL 23 MEQ/L (21-32); CHLORIDE LEVEL 97 MEQ/L (98-107); CPK CREATINE PHOSPHOKINASE 1566 U/L (26-192); CREATININE FOR GFR 0.95 MG/DL (0.55-1.30); ETHYL ALCOHOL (ETHANOL) 0.123 % (0.000-0.010); GLOMERULAR FILTRATION RATE > 60.0 (>60); GLUCOSE, FASTING 103 MG/DL (70-100); LIPASE 92 U/L (73-393); POTASSIUM SERUM 3.5 MEQ/L (3.5-5.1); SALICYLATE LEVEL < 1.7 MG/DL (5.0-30.0); SODIUM LEVEL 135 MEQ/L (136-145); THYROID STIMULATING HORMONE 0.637 uIU/ML (0.358-3.740); TOTAL PROTEIN 6.9 GM/DL (6.4-8.2)
[2020-12-10] MEDS ORDERED: LORazepam 2 MG/ML VIAL As Ordered ONE (19:50)
[2020-12-10] MEDS ORDERED: LORazepam 2 MG TAB PO PRN (19:50)
[2020-12-10] MEDS ORDERED: THIAMINE 100 MG TAB PO SCH (21:00)
[2020-12-11] VITALS (8 sets, daily range): BP systolic 109–128; BP diastolic 69–81
[2020-12-11] MEDS ORDERED: OXAZEPAM 15 MG CAP PO ONE (00:15)
[2020-12-11] MEDS ORDERED: LR 1,000 ML IV SCH (00:20)
[2020-12-11] MEDS ORDERED: BIOT1CAP2 PO (00:41)
[2020-12-11] MEDS ORDERED: ACAM0.05 PO (00:41)
[2020-12-11] MEDS ORDERED: GABA-282 PO (00:41)
[2020-12-11] MEDS ORDERED: QUET1TAB17 PO (00:41)
[2020-12-11] MEDS ORDERED: VIST25CA PO (00:41)
[2020-12-11] MEDS ORDERED: DISU250T PO (00:41)
[2020-12-11] MEDS ORDERED: CELE40TA PO (00:41)
[2020-12-11] MEDS ORDERED: HOME MED LIST COMPLETE! XX SCH (00:45)
--- NOTE | 2020-12-11 01:03 | HPEPDOC ---
[facility] Medical History & Physical Date of Admission Dec 11, 2020 Date of Service: Dec 11, 2020 History and Physical CHIEF COMPLAINT: Alcohol intoxication HISTORY OF PRESENT ILLNESS: 35-year-old female history of alcohol abuse anxiety and depression presents to the emergency department without nontoxic patient after consuming rubbing alcohol at home. Patient endorses that she had run out of alcohol and felt desperate and felt withdrawal symptoms starting and she drank some rubbing alcohol. At this time she is starting to have withdrawal symptoms again. Poison control was contacted from the emergency department initially her lactic acid was elevated but improved with IV fluids. He is also found to have rhabdomyoly sis that did not respond as much as desirable with fluids. Patient will be admitted for observation for alcohol withdrawal and rhabdomyolysis. PAST MEDICAL/SURGICAL HISTORY: Alcohol abuse Anxiety and depression Bariatric surgery SOCIAL HISTORY: Endorses alcohol abuse drinks last request today Endorses smoking tobacco intermittently Denies illicit drug use FAMILY HISTORY: Reviewed and none contributory to this admission ALLERGIES: Please see below. REVIEW OF SYSTEMS: 10 point review of systems complete all negative otherwise stated in HPI HOME MEDICATIONS: Please see below. PHYSICAL EXAMINATION: Constitutional: Awake and alert, in no apparent distress ENT: Sclera are clear. Mucosa is moist. Respiratory: Lungs CTA bilaterally. No respiratory distress. No use of accessory muscles. Cardiovascular: Regular rhythm and sinus tachycardia rate 113 on monitor Gastrointestinal: Abdomen is soft, non distended, non tender, BS present. Musculoskeletal: No lower extremity edema. Neurologic: No focal neurological deficit. Mental Status: A&O x3, normal affect Skin: Warm, dry LABORATORY DATA: See below. IMAGING: See chart MICROBIOLOGY: Please see below. ASSESSMENT/PLAN 35-year-old female admitted for observation after ingesting rubbing alcohol now with alcohol withdrawal symptoms and rhabdomyolysis. # Rhabdomyolysis: IVFs with NS. CPK initially 1566->1478 Repeat CPK in the AM. # Alcohol abuse: drinks daily last drink was today no history of intubations due to alcohol withdrawal. [facility] protocol for alcohol withdrawal. Thiamine, MVN, folate. Ativan PRN. # Lactic acidosis: Initially 6.3 improved to 2.4 with IV fluids. Continue IV fluids. # Anxiety and depression: Continue home citalopram # DVT prophylaxis: Heparin A Yousef Hospitalist Vital Signs Vital Signs Date Time Temp Pulse Resp B/P (MAP) Pulse Ox O2 Delivery O2 Flow Rate FiO2 12/10/20 22:45 98.9 134 17 123/63 (83) 96 Room Air Laboratory Data Labs 24H Laboratory Tests 2 12/10/20 18:30: POC pH (Misc Panel) 7.427, POC Base Excess (Misc Panel) -4.0L, POC Saturated Percent O2 (Misc) 97, POC pO2 (Misc Panel) 89.0, POC pCO2 (Misc Panel) 31.5L, POC HCO3 (Misc Panel) 20.8L, POC Total CO2 (Misc Panel) 22.0L 12/10/20 18:31: Immature Granulocyte % (Auto) 0.3, Neutrophils (%) (Auto) 68.3H, Lymphocytes (%) (Auto) 25.9, Monocytes (%) (Auto) 5.4, Eosinophils (%) (Auto) 0.0, Basophils (%) (Auto) 0.1, Neutrophils # (Auto) 5.2, Lymphocytes # (Auto) 2.0, Monocytes # (Auto) 0.4, Eosinophils # (Auto) 0.0, Basophils # (Auto) 0.0, Nucleated Red Blood Cells % (auto) 0.0, Anion Gap 15, Glomerular Filtration Rate > 60.0, Osmolality 317H, Lactic Acid Level 6.3*H, Calcium Level 8.7, Total Bilirubin 0.7, Direct Bilirubin 0.2, Aspartate Amino Transf (AST/SGOT) 60H, Alanine Aminotransferase (ALT/SGPT) 41, Alkaline Phosphatase 98, Total Creatine Kinase 1566H, Total Protein 6.9, Albumin 3.5, Albumin/Globulin Ratio 1.0L, Lipase 92, Thyroid Stimulating Hormone (TSH) 0.637, Human Chorionic Gonadotropin, Qual NEGATIVE, Salicylates Level < 1.7L, Acetaminophen Level < 2.0L, Ethyl Alcohol Level 0.123H, B-Hydroxybutyrate 1.32 12/10/20 18:42: Bedside Glucose (Misc Panel) 103 12/10/20 18:45: Urine Ketones (Auto) 1+H, Urine Opiates Screen NEGATIVE, Urine Methadone Screen NEGATIVE, Urine Barbiturates Screen NEGATIVE, Urine Phencyclidine Screen NEGATIV E, Urine Amphetamines Screen NEGATIVE, Urine Benzodiazepines Screen NEGATIVE, Urine Cocaine Metabolite Screen NEGATIVE, Urine Cannabinoids Screen NEGATIVE 12/10/20 20:05: POC pH (Misc Panel) 7.426, POC Base Excess (Misc Panel) -2.0, POC Saturated Percent O2 (Misc) 96, POC pO2 (Misc Panel) 80.0, POC pCO2 (Misc Panel) 34.7L, POC HCO3 (Misc Panel) 22.8, POC Total CO2 (Misc Panel) 24.0 12/10/20 22:49: Lactic Acid Level 2.4*H, Total Creatine Kinase 1478H CBC/BMP Laboratory Tests 12/10/20 18:31 Microbiology Microbiology 12/10/20 Respiratory Virus Panel (PCR) ([facility]) - Final, Complete Home Medications Scheduled Biotin (Biotin) 1 Mg Capsule, 1 MG PO DAILY Scheduled PRN Acamprosate Calcium (Acamprosate Calcium) 333 Mg Tablet.dr, 666 MG PO TID PRN for ALCOHOL DEPENDENCE Citalopram Hydrobromide (Celexa) 40 Mg Tablet, 40 MG PO DAILY PRN for DEPRESSION Disulfiram (Disulfiram) 250 Mg Tablet, 250 MG PO DAILY PRN for ALCOHOL DEPENDENCE Gabapentin (Gabapentin) 300 Mg Capsule, 300 MG PO DAILY PRN for ANXIETY Hydroxyzine Pamoate (Vistaril) 25 Mg Capsule, 25 MG PO DAILY PRN for ANXIETY Quetiapine Fumarate (Quetiapine Fumarate) 25 Mg Tablet, 50 MG PO QHS PRN for INSOMNIA Allergies Coded Allergies: No Known Allergies (Unverified , 11/19/19) AZ MARTINS MD Dec 11, 2020 01:03
[2020-12-11] MEDS ORDERED: MOM 30ML SUSPENSION UDC PO PRN (01:10)
[2020-12-11] MEDS ORDERED: LORazepam 2 MG TAB PO PRN (01:10)
[2020-12-11] MEDS ORDERED: ACETAMINOPHEN TAB 650MG DOSE (2X325MG) PO PRN (01:10)
[2020-12-11] MEDS: NS 1,000 ML IV SCH ×4 (02:35→21:31)
[2020-12-11 03:28] LABS: MEAN CORPUSCULAR HEMOGLOBIN 27.5 pg (27.0-33.0); MEAN CORPUSCULAR HGB CONC 33.3 g/dl (32.0-36.5); MEAN CORPUSCULAR VOLUME 82.4 fl (80.0-96.0); PLATELET COUNT, AUTOMATED 233 10^3/uL (150-450); RED BLOOD COUNT 3.64 10^6/uL (4.00-5.40)
[2020-12-11] MEDS: CitaloPRAM (CeleXA) 20 MG TAB PO PRN (03:52)
[2020-12-11 03:56] LABS: ALT/SGPT 34 U/L (12-78); BILIRUBIN,TOTAL 0.9 MG/DL (0.2-1.0); BLOOD UREA NITROGEN 3 MG/DL (7-18); CARBON DIOXIDE LEVEL 27 MEQ/L (21-32); CHLORIDE LEVEL 109 MEQ/L (98-107); CREATININE FOR GFR 0.94 MG/DL (0.55-1.30); GLOMERULAR FILTRATION RATE > 60.0 (>60); GLUCOSE, FASTING 88 MG/DL (70-100); POTASSIUM SERUM 3.6 MEQ/L (3.5-5.1); SODIUM LEVEL 143 MEQ/L (136-145); TOTAL PROTEIN 5.9 GM/DL (6.4-8.2)
[2020-12-11] MEDS ORDERED: MULTIVITAMINS/MINERALS THERAP 1 TAB PO SCH (09:00)
[2020-12-11] MEDS ORDERED: RAMELTEON 8 MG TAB (ROZEREM) PO ONE (09:00)
[2020-12-11] MEDS ORDERED: FOLIC ACID 1 MG TAB PO SCH (09:00)
[2020-12-11] MEDS: HEPARIN SOD (PORCINE) 5000UNITS/ML 1ML VIAL/SYRINGE SC SCH ×2 (10:21→21:30)
[2020-12-11] MEDS: THIAMINE 100 MG TAB PO SCH ×2 (10:22→21:30)
[2020-12-11] MEDS: MULTIVITAMINS/MINERALS THERAP 1 TAB PO SCH (10:22)
[2020-12-11] MEDS: FOLIC ACID 1 MG TAB PO SCH (10:23)
--- NOTE | 2020-12-11 11:52 | IPNPDOC ---
Text Note Date of Service The patient was seen on 12/11/20. NOTE Subjective: Patient is a 35-year-old female with a history of alcohol abuse, anxiety, and depression who presented the emergency department after drinking rubbing alcohol at home. Patient endorses that she had run out of alcohol and felt desperate and felt withdrawal symptoms starting so she drank rubbing alcohol. Patient states that she started to have withdrawal symptoms again. Poison control was contacted in the emergency department initially her lactic acid was elevated but improved with IV fluids. Patient was also found to have rhabdomyolysis which did not respond as much with fluids. Patient was admitted for observation for alcohol withdrawal and rhabdomyolysis. Patient says that she feels sore today but is otherwise feeling well. Patient denies any other complaints today. Review of systems: General: Patient denies fevers HEENT: Patient denies headaches Cardiovascular: Patient denies chest pain Respiratory: Patient denies shortness of breath, cough GI: Patient denies abdominal pain, nausea, vomiting, diarrhea : Patient denies increased frequency or pain with urination Extremities: Patient denies swelling or pain in extremities Neurological: Patient denies numbness or tingling in legs Physical exam: Vitals: See below General: Alert and oriented female patient who was sitting in bed when I walked in. Patient not appear to be in any acute distress. HEENT: Normocephalic, atraumatic, moist mucous membranes. Neck: No lymphadenopathy or thyromegaly Cardiac: Regular rate and rhythm, no murmurs, normal S1, normal S2 Pulm: Clear to auscultation bilaterally. No wheezes, rhonchi, rales Abd: Nondistended, nontender to palpation, normal bowel sounds Ext: No edema bilateral lower extremities Neuro: Patient did not have any pronator drift or tremors when holding her arm straight out. Labs: See below Imaging: No new imaging has been performed. Assessment/plan: 35-year-old female admitted for observation after ingesting rubbing alcohol now with alcohol withdrawal symptoms and rhabdomyolysis 1. Rhabdomyolysis. CK is still around 1000. We will continue to monitor. Continue IV fluids normal saline. 2. Alcohol abuse. Patient drinks daily especially over the past week or so. Last drink was yesterday. Patient does not have any history of intubations due to alcohol withdrawal. [facility] protocol for alcohol withdrawal. Thiamine mu ltivitamin and folate given. 3. Lactic acidosis. Initially 6.3, improved to 2.4 with IV fluids. Now is within normal limits. We will continue to monitor. 4. Anxiety depression. Continue home medication. DVT Prophylaxis: Heparin Disposition: Pending improvement in rhabdomyolysis, most likely discharge tomorrow. VS,Fishbone, I+O VS, Fishbone, I+O Laboratory Tests 12/10/20 18:31 12/11/20 03:16 Vital Signs Date Time Temp Pulse Resp B/P (MAP) Pulse Ox O2 Delivery O2 Flow Rate FiO2 12/11/20 11:45 99.3 105 20 120/79 (93) 97 Room Air I&O- Last 24 Hours up to 6 AM 12/11/20 06:00 Intake Total 2400 ml Output Total 950 ml Balance 1450 ml CHENTE STEPHENS DO Dec 11, 2020 11:52
[2020-12-11] MEDS: GABAPENTIN 300 MG CAP PO PRN (14:44)
[2020-12-11] MEDS ORDERED: hydrOXYzine 50 MG TAB PO ONE (17:00)
[2020-12-11] MEDS ORDERED: RAMELTEON 8 MG TAB (ROZEREM) PO PRN (21:00)
[2020-12-12] VITALS: BP 125/74
--- NOTE | 2020-12-12 00:04 | ECGEPIP ---
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
[2020-12-12 04:00] VITALS: BP 113/82
[2020-12-12 08:00] VITALS: BP 106/74
[2020-12-12] MEDS: CitaloPRAM (CeleXA) 20 MG TAB PO PRN (08:51)
[2020-12-12] MEDS: MULTIVITAMINS/MINERALS THERAP 1 TAB PO SCH (08:51)
[2020-12-12] MEDS: GABAPENTIN 300 MG CAP PO PRN (08:51)
[2020-12-12] MEDS: FOLIC ACID 1 MG TAB PO SCH (08:52)
[2020-12-12] MEDS: THIAMINE 100 MG TAB PO SCH (08:52)
[2020-12-12] MEDS: HEPARIN SOD (PORCINE) 5000UNITS/ML 1ML VIAL/SYRINGE SC SCH (08:54)
[2020-12-12 09:31] LABS: HEMATOCRIT 30.8 % (36.0-47.0); HEMOGLOBIN 9.8 g/dl (12.0-15.5); MEAN CORPUSCULAR HEMOGLOBIN 27.5 pg (27.0-33.0); MEAN CORPUSCULAR HGB CONC 31.8 g/dl (32.0-36.5); MEAN CORPUSCULAR VOLUME 86.3 fl (80.0-96.0); PLATELET COUNT, AUTOMATED 206 10^3/uL (150-450); RED BLOOD COUNT 3.57 10^6/uL (4.00-5.40); WHITE BLOOD COUNT 6.8 10^3/uL (4.0-10.0)
[2020-12-12 10:02] LABS: BLOOD UREA NITROGEN 4 MG/DL (7-18); CALCIUM LEVEL 8.4 MG/DL (8.5-10.1); CARBON DIOXIDE LEVEL 25 MEQ/L (21-32); CHLORIDE LEVEL 109 MEQ/L (98-107); CPK CREATINE PHOSPHOKINASE 495 U/L (26-192); CREATININE FOR GFR 0.63 MG/DL (0.55-1.30); GLOMERULAR FILTRATION RATE > 60.0 (>60); GLUCOSE, FASTING 97 MG/DL (70-100); POTASSIUM SERUM 3.6 MEQ/L (3.5-5.1); SODIUM LEVEL 141 MEQ/L (136-145)
[2020-12-12 12:00] VITALS: BP 111/66
--- NOTE | 2020-12-12 13:09 | DS.PDOC ---
Discharge Summary General Date of Admission Dec 10, 2020 at 17:40 Date of Discharge 12/12/2020 Primary Care Physician: Tyrel Marques MD Attending Physician: CHENTE STEPHENS DO Discharge Summary PROCEDURES PERFORMED DURING STAY: None. ADMITTING DIAGNOSES: 1. Rhabdomyolysis. 2. Alcohol abuse 3. Lactic acidosis 4. Anxiety and depression DISCHARGE DIAGNOSES: 1. Rhabdomyolysis, improved. 2. Alcohol abuse 3. Lactic acidosis, resolved 4. Anxiety and depression COMPLICATIONS/CHIEF COMPLAINT: [place] Withdrawal, Rhabdomyolysis. HISTORY OF PRESENT ILLNESS: Patient is a 35-year-old female with history of alcohol abuse, anxiety, and depression who presents to the emergency department after consuming rubbing alcohol at home. Patient endorses that she ran out of alcohol and felt desperate and felt withdrawal symptoms starting so she drank rubbing alcohol. At this time, she started to have withdrawal symptoms again. Poison control was contacted by the emergency department as her lactic acid was initially very elevated but this improved with IV fluids. Patient was also found to have rhabdomyolysis which did not respond as much as desired with fl uids. Patient was admitted for observation for alcohol withdrawal and rhabdomyolysis.. HOSPITAL COURSE: Patient's rhabdomyolysis did mildly improved with IV fluids. After a few liters, the IV fluids were stopped. Patient was kept overnight. Patient was having subjective withdrawal symptoms however, she did not score highly on her CIWA protocol. Patient was initially given a dose of Ativan in the emergency department but did not receive any as needed Ativan due to high CIWA scores throughout her hospitalization. Patient's rhabdomyolysis improved on the morning of 12/12/2020. All of the patient's laboratory studies came back within normal range and the patient CIWA score was 0. Patient was deemed ready for discharge to follow-up with outpatient alcohol program. Patient was discharged home on 12/12/2020. DISCHARGE MEDICATIONS: Please see below. ALLERGIES: Please see below. PHYSICAL EXAMINATION ON DISCHARGE: VITAL SIGNS: Please see below. General: Alert and oriented female patient who was laying in bed when I walked in the room. Patient did not appear to be in any acute distress HEENT: Normocephalic, atraumatic, moist mucous membranes. Neck: No lymphadenopathy or thyromegaly Cardiac: Regular rate and rhythm, no murmurs, normal S1, normal S2 Pulm: Clear to auscultation bilaterally. No wheezes, rhonchi, rales Abd: Nondistended, nontender to palpation, normal bowel sounds Ext: No edema bilateral lower extremities LABORATORY DATA: Please see below. IMAGING: No imaging was performed during this admission PROGNOSIS: Good ACTIVITY: As tolerated. DIET: Regular DISCHARGE PLAN: Discharge home DISPOSITION: , self-care DISCHARGE INSTRUCTIONS: 1. Follow-up with your primary care provider within 3 to 5 days of discharge. 2. Abstain from drinking alcohol. Make sure to not apply any alcohol and remove any alcohol from your home 3. Follow-up with outpatient alcohol program 4. Return to the ED if symptoms worsen ITEMS TO FOLLOWUP ON ON OUTPATIENT: 1. None. DISCHARGE CONDITION: Stable. TIME SPENT ON DISCHARGE: 25 minutes. Vital Signs/I&Os Vital Signs Date Time Temp Pulse Resp B/P (MAP) Pulse Ox O2 Delivery O2 Flow Rate FiO2 12/12/20 12:00 99.5 63 16 98 Room Air 12/12/20 08:00 106/74 (85) I&O- Last 24 Hours up to 6 AM 12/12/20 06:00 Intake Total 2550 ml Output Total 700 ml Balance 1850 ml Laboratory Data Labs 24H Laboratory Tests 2 12/12/20 09:18: Nucleated Red Blood Cells % (auto) 0.0, Anion Gap 7L, Glomerular Filtration Rate > 60.0, Calcium Level 8.4L, Total Creatine Kinase 495H CBC/BMP Laboratory Tests 12/12/20 09:18 Microbiology Microbiology 12/10/20 Respiratory Virus Panel (PCR) ([facility]) - Final, Complete Discharge Medications Scheduled Biotin (Biotin) 1 Mg Capsule, 1 MG PO DAILY, (Reported) Scheduled PRN Acamprosate Calcium (Acamprosate Calcium) 333 Mg Tablet.dr, 666 MG PO TID PRN for ALCOHOL DEPENDENCE, (Reported) Citalopram Hydrobromide (Celexa) 40 Mg Tablet, 40 MG PO DAILY PRN for DEPRESSION, (Reported) Disulfiram (Disulfiram) 250 Mg Tablet, 250 MG PO DAILY PRN for ALCOHOL DEPENDENCE, (Reported) Gabapentin (Gabapentin) 300 Mg Capsule, 300 MG PO DAILY PRN for ANXIETY, (Reported) Hydroxyzine Pamoate (Vistaril) 25 Mg Capsule, 25 MG PO DAILY PRN for ANXIETY, (Reported) Quetiapine Fumarate (Quetiapine Fumarate) 25 Mg Tablet, 50 MG PO QHS PRN for INSOMNIA, (Reported) Allergies Coded Allergies: No Known Allergies (Unverified , 11/19/19) CHENTE STEPHENS DO Dec 12, 2020 13:09
== END 2020-12-12 14:55 | disposition home or self-care (01) ==
LOC: M ED 17:39 → M ED INP 17:40 → M PCU 12-11 02:26
PROVIDERS: ADMIT Family Medicine; ATTEND Family Medicine
DX: M62.82 Rhabdomyolysis (principal); F10.239 Alcohol dependence with withdrawal, unspecified; E87.2 Acidosis; F41.9 Anxiety disorder, unspecified; F32.9 Major depressive disorder, single episode, unspecified; T51.2X1A Toxic effect of 2-Propanol, accidental (unintentional), initial encounter; Z72.0 Tobacco use; Z79.899 Other long term (current) drug therapy; Z98.84 Bariatric surgery status
CPT/HCPCS: 36415; 36600; 80048; 80053; 80076; 80143; 80307; 81002; 82010; 82077; 82550; 82803; 83605; 83690; 83930; 84443; 84703; 85025; 85027; 87798; 93005; 93041; 96361; 96372; 96374; 96375; 99285; J1644; J2060; J2405

== ENCOUNTER 2020-12-17 14:08 | Outpatient (RCR) | payer MEDICAID ==
[~2020-12-17 14:08] MED LIST changes: +ACAM0.05 PO; +DISU250T PO; +GABA-282 PO; +QUET1TAB17 PO; +VIST25CA PO
== END 2020-12-18 ==
LOC: M OUTALCOH 14:08
PROVIDERS: ATTEND Psychiatry & Neurology Psychiatry
DX: F10.20 Alcohol dependence, uncomplicated (principal)

== ENCOUNTER 2020-12-25 17:42 | Emergency (ER) | payer OTHER, MEDICAID ==
[~2020-12-25] VITALS: Ht 162.6 cm; Wt 70.5 kg
[2020-12-25] MEDS ORDERED: NS 1,000 ML IV ONE (17:55)
[2020-12-25 18:27] LABS: BASO % 0.7 % (0.0-1.0); HEMATOCRIT 32.6 % (36.0-47.0); HEMOGLOBIN 10.6 g/dl (12.0-15.5); LYMPH # 2.1 10^3/uL (1.5-5.0); LYMPH % 38.4 % (24.0-44.0); MEAN CORPUSCULAR HEMOGLOBIN 27.2 pg (27.0-33.0); MEAN CORPUSCULAR HGB CONC 32.5 g/dl (32.0-36.5); MEAN CORPUSCULAR VOLUME 83.8 fl (80.0-96.0); MONO # 0.5 10^3/uL (0.0-0.8); MONO % 9.2 % (2.0-8.0); NEUTROPHILS # 2.8 10^3/uL (1.5-8.5); NEUTROPHILS % 51.5 % (36.0-66.0); PLATELET COUNT, AUTOMATED 397 10^3/uL (150-450); RED BLOOD COUNT 3.89 10^6/uL (4.00-5.40); WHITE BLOOD COUNT 5.5 10^3/uL (4.0-10.0)
[2020-12-25 18:42] LABS: OSMOLALITY SERUM 366 MOSM/KG (275-295)
[2020-12-25 18:52] LABS: AMPHETAMINES LEVEL URINE NEGATIVE (NEGATIVE); BARBITURATES URINE NEGATIVE (NEGATIVE); BENZODIAZEPINES URINE NEGATIVE (NEGATIVE); CANNABINOIDS URINE NEGATIVE (NEGATIVE); COCAINE METABOLITE URINE NEGATIVE (NEGATIVE); METHADONE URINE NEGATIVE (NEGATIVE); OPIATES URINE NEGATIVE (NEGATIVE); PHENCYCLIDINE URINE NEGATIVE (NEGATIVE)
[2020-12-25 18:57] LABS: ACETAMINOPHEN LEVEL < 2.0 UG/ML (10.0-30.0); ALBUMIN 3.4 GM/DL (3.2-5.2); ALT/SGPT 44 U/L (12-78); BILIRUBIN,DIRECT 0.2 MG/DL (0.0-0.2); BILIRUBIN,TOTAL 0.4 MG/DL (0.2-1.0); BLOOD UREA NITROGEN 2 MG/DL (7-18); CALCIUM LEVEL 8.7 MG/DL (8.5-10.1); CARBON DIOXIDE LEVEL 22 MEQ/L (21-32); CHLORIDE LEVEL 102 MEQ/L (98-107); CPK CREATINE PHOSPHOKINASE 181 U/L (26-192); CREATININE FOR GFR 0.59 MG/DL (0.55-1.30); ETHYL ALCOHOL (ETHANOL) 0.337 % (0.000-0.010); GLOMERULAR FILTRATION RATE > 60.0 (>60); GLUCOSE, FASTING 93 MG/DL (70-100); POTASSIUM SERUM 3.4 MEQ/L (3.5-5.1); SALICYLATE LEVEL < 1.7 MG/DL (5.0-30.0); SODIUM LEVEL 138 MEQ/L (136-145)
--- NOTE | 2020-12-25 20:00 | ECGEPIP ---
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
[2020-12-25] MEDS ORDERED: LORazepam 2 MG TAB PO PRN (22:35)
[2020-12-25 23:00] VITALS: BP 134/95
== END 2020-12-25 23:50 | disposition home or self-care (01) ==
LOC: M ED 17:42
DX: F10.129 Alcohol abuse with intoxication, unspecified (principal); R94.31 Abnormal electrocardiogram [ECG] [EKG]; Z79.899 Other long term (current) drug therapy; Z87.39 Personal history of other diseases of the musculoskeletal system and connective tissue

== ENCOUNTER 2020-12-29 21:11 | Emergency (ER) | payer OTHER, MEDICAID ==
--- NOTE | 2020-12-29 22:39 | REPVR ---
PROCEDURE INFORMATION: Exam: CT Head Without Contrast Exam date and time: 12/29/2020 9:59 PM Age: 35 years old Clinical indication: Altered mental status/memory loss; Additional info: Drug overdose TECHNIQUE: Imaging protocol: Computed tomography of the head without contrast. Radiation optimization: All CT scans at this facility use at least one of these dose optimization techniques: automated exposure control; mA and/or kV adjustment per patient size (includes targeted exams where dose is matched to clinical indication); or iterative reconstruction. COMPARISON: CT Head without contrast 02/27/2020 4:39 PM FINDINGS: Brain: Normal. No hemorrhage. Unremarkable white matter. No mass effect. Cerebral ventricles: No ventriculomegaly. Paranasal sinuses: Visualized sinuses are unremarkable. No fluid levels. Mastoid air cells: Visualized mastoid air cells are well aerated. Bones/joints: Unremarkable. No acute fracture. Soft tissues: Unremarkable. IMPRESSION: No acute intracranial abnormality. Electronically signed by: Kevyn Grant On 12/29/2020 22:39:02 PM
[2020-12-29 22:41] LABS: BASO % 0.7 % (0.0-1.0); EOS % 0.5 % (0.0-3.0); HEMATOCRIT 35.8 % (36.0-47.0); HEMOGLOBIN 11.7 g/dl (12.0-15.5); LYMPH # 2.2 10^3/uL (1.5-5.0); LYMPH % 38.7 % (24.0-44.0); MEAN CORPUSCULAR HEMOGLOBIN 27.6 pg (27.0-33.0); MEAN CORPUSCULAR HGB CONC 32.7 g/dl (32.0-36.5); MEAN CORPUSCULAR VOLUME 84.4 fl (80.0-96.0); MONO # 0.5 10^3/uL (0.0-0.8); MONO % 8.6 % (2.0-8.0); NEUTROPHILS # 2.9 10^3/uL (1.5-8.5); NEUTROPHILS % 51.1 % (36.0-66.0); PLATELET COUNT, AUTOMATED 331 10^3/uL (150-450); RED BLOOD COUNT 4.24 10^6/uL (4.00-5.40); WHITE BLOOD COUNT 5.6 10^3/uL (4.0-10.0)
[2020-12-29 23:10] LABS: RSV AMPLIFICATION NEGATIVE (NEGATIVE)
[2020-12-29 23:11] LABS: AMPHETAMINES LEVEL URINE NEGATIVE (NEGATIVE); BARBITURATES URINE NEGATIVE (NEGATIVE); BENZODIAZEPINES URINE NEGATIVE (NEGATIVE); CANNABINOIDS URINE NEGATIVE (NEGATIVE); COCAINE METABOLITE URINE NEGATIVE (NEGATIVE); METHADONE URINE NEGATIVE (NEGATIVE); OPIATES URINE NEGATIVE (NEGATIVE); PHENCYCLIDINE URINE NEGATIVE (NEGATIVE)
[2020-12-29 23:43] LABS: ACETAMINOPHEN LEVEL < 2.0 UG/ML (10.0-30.0); ALBUMIN 3.5 GM/DL (3.2-5.2); ALT/SGPT 54 U/L (12-78); BILIRUBIN,DIRECT < 0.1 MG/DL (0.0-0.2); BILIRUBIN,TOTAL 0.5 MG/DL (0.2-1.0); BLOOD UREA NITROGEN 4 MG/DL (7-18); CALCIUM LEVEL 8.5 MG/DL (8.5-10.1); CARBON DIOXIDE LEVEL 23 MEQ/L (21-32); CHLORIDE LEVEL 110 MEQ/L (98-107); CPK CREATINE PHOSPHOKINASE 539 U/L (26-192); CREATININE FOR GFR 0.52 MG/DL (0.55-1.30); ETHYL ALCOHOL (ETHANOL) 0.391 % (0.000-0.010); GLOMERULAR FILTRATION RATE > 60.0 (>60); GLUCOSE, FASTING 83 MG/DL (70-100); POTASSIUM SERUM 5.3 MEQ/L (3.5-5.1); SALICYLATE LEVEL < 1.7 MG/DL (5.0-30.0); SODIUM LEVEL 142 MEQ/L (136-145); TOTAL PROTEIN 7.6 GM/DL (6.4-8.2)
[2020-12-30] MEDS ORDERED: NS 1,000 ML IV ONE (00:10)
[2020-12-30] MEDS ORDERED: LORazepam 2 MG TAB PO ONE (08:30)
[2020-12-30 11:00] VITALS: BP 113/68
--- NOTE | 2020-12-30 21:38 | ECGEPIP ---
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
[2020-12-31] MEDS ORDERED: HYDR1CAP25 (12:42)
== END 2020-12-30 11:21 | disposition home or self-care (01) ==
LOC: M ED 21:11
DX: F10.129 Alcohol abuse with intoxication, unspecified (principal); F33.9 Major depressive disorder, recurrent, unspecified; Z98.84 Bariatric surgery status; Z79.899 Other long term (current) drug therapy

== ENCOUNTER 2020-12-31 12:33 | Emergency (ER) | payer OTHER, MEDICAID ==
[2020-12-31] MEDS ORDERED: HYDR1CAP25 (12:42)
--- OUTSIDE RECORDS SUMMARY | 2020-12-31 12:43 | CCD ---
Author Author [facility] Organization [facility] Address Unknown Phone Unavailable Care Team Providers Care Equity Research Analyst Name Role Phone Eladio David Unavailable PROBLEMS Type Condition ICD9-CM Code [id number] Code Onset Dates Condition S tatus W/U Status Risk SNOMED Code Notes Problem Hypokalemia E87.6 Active confirmed 87644888 Problem Tobacco abuse Z72.0 Active confirmed 408779 05 Problem Anxiety F41.9 Active confirmed 84123911 Problem Fatty liver K76.0 Active confirmed 96049508 7 Problem Alcohol use disorder, mild, in early remission F10 .11 Active confirmed 57063169 Problem Depression with anxiety F41.8 Active confirmed 923035626 Problem Alcohol dependence in early, early partial, sustained full, or sustained partial remission F10.21 Active confirmed 628604625 Problem Alcohol use disorder, mild, abuse F10.10 Active confirmed 36672094 Problem Alcohol abuse F10.10 Active confirmed 447309 05 Problem Hospital discharge follow-up Z09 Active confirme d 258951635 Problem Nicotine dependence with current use F17.200 Act corby confirmed 483631914 Problem Psychophysiological insomnia F51.04 Active confirme d 506724793 Problem Severe episode of recurrent major depressive disorder, without psychotic features F33.2 Active confirmed 06768611 ALLERGIES No Known Allergies ENCOUNTERS from 1984 to 2020-10-24 Encounter Location Date Provider Diagnosis [address] [phone] [place] [address] Oct, David Hendricks Uses control Z78.9 IMMUNIZATIONS Vaccine Route Administration Date Status Depo-Provera 150mg/1mL Medroxy-Progestrone Acetate IM Intram uscular July 15, 2020 Administered Depo-Provera 150mg/1mL Medroxy-Progestrone Acetate IM Intram uscular September 18, 2019 Administered Depo-Provera 150mg/1mL Medroxy-Progestrone Acetate IM Intram uscular August 30, 2019 Administered SOCIAL HISTORY Tobacco Use: Social History Observation Description Date Details (start date - stop date) Current Smoker Sex Assigned At : Social History Observation Description Sex Assigned At Unknown Education: Question Answer Notes Level of Education: High School Audit Question Answer Notes Total Score: 0 Interpretation: Alcohol Education Language: Question Answer Notes Languages spoken: [place] Islander Protestant: Question Answer Notes Protestant No hoahaoism beliefs that would impact health care. Sexual Hx: Question Answer Notes Had sex in the last 12 months (vaginal, oral, or anal)? Yes Have you ever had an STD? Yes Use protection? Yes Chlamydia? Yes How often? Most of the time Drug and Alcohol Question Answer Notes Total Score: 0 Interpretation: No problems reported Alcohol Screening: Question Answer Notes Did you have a drink containing alcohol in the past year? No Points 0 Interpretation Negative Tobacco Use: Question Answer Notes Are you a: current smoker Patient counseled on the dangers of tobacco use and urged to quit: 04/19/2018 How many cigarettes a day do you smoke? 5 or less Are you interested in quitting? Not ready to quit Counseled the patient on smoking effects, education provided 04/19/2018 REASON FOR REFERRAL No Information VITAL SIGNS No information MEDICATIONS Medication SIG (Take, Route, Frequency, Duration) Notes Start Da te End Date Status Biotin 5000 5 MG 1 capsule Orally Once a day for 30 day(s) Active hydrOXYzine Pamoate 25 mg 1 capsule as needed Orally once daily for 3 0 Active SEROquel 25 MG 3 tablet at bedtime Orally Once a day for 14 Active Vivitrol 380 MG 4 ml Intramuscular every 30 days for 90 days Active Vivitrol 380 MG 4 ml Intramuscular every 30 days for 90 days Mar, Active CeleXA 40 MG take one tablet by mouth every day Orally Once a day Active Acamprosate Calcium 333 MG 2 tablets Orally Three times a day fo r 30 day(s) Sep, Active PROCEDURES from 1984 to 2020-10-24 Procedure Date Ordered Result Body Site Medication: Depo-Provera 150mg/1mL IM (Medroxyprogesterone A cetate) 2020-10-24 N/A RESULTS No Results REASON FOR VISIT Depo shot MEDICAL (GENERAL) HISTORY Type Description Date Medical History suicidal ideation Medical History anxiety and depression Medical History morbid obesity Medical History tobacco dependence Medical History alcohol abuse Medical History hypokalemia Surgical History bariatric surgery 05/2017 Hospitalization History anxiety/depression, ETOH 06/07/2015 a nd 04/2015 Hospitalization History [facility] -- ETOH and SI 03/2015 Hospitalization History bariatric surgery 05/2017 Hospitalization History detox-[facility] 03/2020 Goals Section No Information Health Concerns No Information MEDICAL EQUIPMENT No Information MENTAL STATUS No Information FUNCTIONAL STATUS No Information ASSESSMENTS Encounter Date Diagnosis Assessment Notes Treatment Notes Treatm ent Clinical Notes Oct, Uses control (ICD-10 - Z78.9) PLAN OF TREATMENT Next Appt Details Provider Name:David Hendricks, 2020-03 11:00:00 AM, [address] [facility], , [place], [address], Insurance Providers Payer Name Payer Address Payer Phone Insured Name Patient Relati onship to Insured Coverage Start Date Coverage End Date [facility] COMMUNITY PLAN [facility] [address] [facility] [address] [phone] TAI ARAYA self
--- OUTSIDE RECORDS SUMMARY | 2020-12-31 12:43 | CCD | Continuity of Care Document ---
Author Author Milton RAI PA-C Organization Unknown Address [address] [place] [address] Phone [phone] Care Team Providers Care Curing Oven Tender Name Role Phone Tyrel Marques MD [facility] [phone] Problems Description No Information Available Social History Type Date Description Comments Sex Unknown ETOH Use Denies alcohol use Tobacco Use Start: Unknown End: Unknown Patient is a former smoker Allergies, Adverse Reactions, Alerts Description No Known Drug Allergies Medications Description No Active Medications Immunizations Description No Information Available Vital Signs Date Vital Result Comment 10/01/2020 3:14pm Body Temperature 97.5 F Height 65.50 inches 5'5.50" Weight 142.12 lb BMI (Body Mass Index) 23.3 kg/m2 Results Description No Information Available Procedures Date Code Description Status 10/01/2020 22864 Office/Outpatient New Moderate M DM 45-59 Minutes Completed Medical Devices Description No Information Available Encounters Type Date Location Provider Dx Diagnosis Office Visit 10/01/2020 2:45p [place] Jason Rai PA-C S6 2.616A Disp fx of proximal phalanx of right little finger, init S62.666A Nondisp fx of distal phalanx of right little finger, init Assessments Date Code Description Provider 10/01/2020 S62.616A Displaced fracture o f proximal phalanx of right little finger, initial encounter for closed fracture Jason Rai PA-C 10/01/2020 S62.616A Displaced fracture o f proximal phalanx of right little finger, initial encounter for closed fracture Jason Rai PA-C 10/01/2020 S62.666A Nondisplaced fractur e of distal phalanx of right little finger, initial encounter for closed fracture Jason Rai PA-C Plan of Treatment No Information Available Functional Status Description No Information Available Mental Status Description No Information Available Referrals Refer to Dr Reason for Referral Status Appt Date Jason Rai PA-C [employer] [facility] (L3984) PER [employer] WEB NO AUTH REQUIRED TO [facility] Created [address] [facility] [address] [place] [phone] José Blanton PA T14.8XXA OTHER INJURY OF UNS PECIFIED BODY REGION, INITIAL ENCOUNTER Created [address] [facility] [address] [place] [address] [phone]
--- OUTSIDE RECORDS SUMMARY | 2020-12-31 12:43 | CCD ---
Author Author [facility] Organization [facility] Address Unknown Phone Unavailable Care Team Providers Care Plate Worker Name Role Phone David Hendricks Unavailable PROBLEMS Type Condition ICD9-CM Code [id number] Code Onset Dates Condition S tatus W/U Status Risk SNOMED Code Notes Problem Hypokalemia E87.6 Active confirmed 56762767 Problem Tobacco abuse Z72.0 Active confirmed 468388 05 Problem Anxiety F41.9 Active confirmed 29330429 Problem Fatty liver K76.0 Active confirmed 62435461 7 Problem Alcohol use disorder, mild, in early remission F10 .11 Active confirmed 72201185 Problem Depression with anxiety F41.8 Active confirmed 453096143 Problem Alcohol dependence in early, early partial, sustained full, or sustained partial remission F10.21 Active confirmed 690814453 Problem Alcohol use disorder, mild, abuse F10.10 Active confirmed 09386898 Problem Alcohol abuse F10.10 Active confirmed 157786 05 Problem Hospital discharge follow-up Z09 Active confirme d 566101946 Problem Nicotine dependence with current use F17.200 Act corby confirmed 888286291 Problem Psychophysiological insomnia F51.04 Active confirme d 437039611 Problem Severe episode of recurrent major depressive disorder, without psychotic features F33.2 Active confirmed 22279297 ALLERGIES No Known Allergies ENCOUNTERS from 1984 to 2020-12-18 Encounter Location Date Provider Diagnosis [address] [phone] [place] [address] Nov, David Hendricks IMMUNIZATIONS Vaccine Route Administration Date Status Depo-Provera 150mg/1mL Medroxy-Progestrone Acetate IM Intram uscular Oct 24, 2020 Administered Depo-Provera 150mg/1mL Medroxy-Progestrone Acetate IM [...] Education Language: Question Answer Notes Languages spoken: Angolan Orthodox: Question Answer Notes Orthodox No jehovah's witness beliefs that would impact health care. Sexual [...] Notes Start Da te End Date Status Acamprosate Calcium 333 MG 2 tablets Orally Three times a day r 30 day(s) Sep, Active Vivitrol 380 MG 4 ml Intramuscular every 30 days for 90 days Duplicat e? Unknown Biotin 5000 5 MG 1 capsule Orally Once a day for 30 day(s) Active Gabapentin 300 MG 1 capsule Orally Once a day, as needed for anxiety Reported on 12/13 D?C Active CeleXA 40 MG take one tablet by mouth every day Orally Once a day Active hydrOXYzine Pamoate 25 mg 1 capsule as needed Orally once daily for 3 0 Active SEROquel 25 MG 3 tablet at bedtime Orally Once a day fo r 14 12/12 D/C reports 50mg?? Unknown Disulfiram 250 MG 1 tablet Orally Once a day for 30 day(s) Repor yessenia on 12/13 D/C Nov, Active Vivitrol 380 MG 4 ml Intramuscular every 30 days for 90 days Not listed on 12/12 D/C Mar, Unknown PROCEDURES No Information RESULTS No Results REASON FOR VISIT mTCM [facility] d/c 12/12 Alcohol WD, Rhabdomyolysis MEDICAL (GENERAL) HISTORY Type Description Date Medical [...] Notes Treatment Notes Treatm ent Clinical Notes Nov, Other Discussion with patient PLAN OF TREATMENT Next Appt Details Provider Name:David Hendricks, 2020-03 11:00:00 AM, [address] [facility], , [place], [address], Insurance Providers Payer Name Payer Address Payer Phone Insured Name Patient Relati onship to Insured Coverage Start Date Coverage End Date [facility] COMMUNITY PLAN [facility] [address] [facility] [address] TAI ARAYA self
--- OUTSIDE RECORDS SUMMARY | 2020-12-31 12:43 | CCD | Continuity of Care Document ---
Author Author Milton RAI PA-C Organization Unknown Address [address] [place] [address] Phone [phone] Care Team Providers Care Desizing Pad Operator Name Role Phone Tyrel Marques MD [facility] [phone] Problems Description No Information Available Social History [...] Available Procedures Date Code Description Status 10/01/2020 70136 Office/Outpatient New Moderate M DM 45-59 Minutes Completed Medical Devices Description No Information Available Encounters Type Date Location Provider Dx Diagnosis Office Visit 10/01/2020 2:45p [place] Jason Rai PA-C S6 2.616A Disp fx [...] [employer] [facility] [facility] (L3984) PER [employer] WEB NO AUTH REQUIRED TO [facility] Created [address] [facility] [address] [place] [id number] [phone] José Blanton PA T14.8XXA OTHER INJURY OF UNS PECIFIED BODY REGION, INITIAL ENCOUNTER Created [address] [facility] [address] [place] [address] [phone]
--- OUTSIDE RECORDS SUMMARY | 2020-12-31 12:43 | CCD ---
Author Author [facility] Organization [facility] Address Unknown Phone Unavailable Care Team Providers Care Flux Core Welder Name Role Phone Eladio, David Unavailable PROBLEMS Type Condition ICD9-CM Code [id number] Code Onset Dates Condition S tatus W/U Status Risk SNOMED Code Notes Problem Hypokalemia E87.6 Active confirmed 66706395 Problem Tobacco abuse Z72.0 Active confirmed 991291 05 Problem Anxiety F41.9 Active confirmed 07655598 Problem Fatty liver K76.0 Active confirmed 58041783 7 Problem Alcohol use disorder, mild, in early remission F10 .11 Active confirmed 79248238 Problem Depression with anxiety F41.8 Active confirmed 809653794 Problem Alcohol dependence in early, early partial, sustained full, or sustained partial remission F10.21 Active confirmed 937369135 Problem Alcohol use disorder, mild, abuse F10.10 Active confirmed 28685869 Problem Alcohol abuse F10.10 Active confirmed 691777 05 Problem Hospital discharge follow-up Z09 Active confirme d 271759788 Problem Nicotine dependence with current use F17.200 Act corby confirmed 895750001 Problem Psychophysiological insomnia F51.04 Active confirme d 843352459 Problem Severe episode of recurrent major depressive disorder, without psychotic features F33.2 Active confirmed 31665721 ALLERGIES No Known Allergies ENCOUNTERS from 1984 to 2020-12-19 Encounter Location Date Provider Diagnosis [address] [phone] [place] [address] Dec, David Hendricks Depression with anxiety F41. 8 IMMUNIZATIONS Vaccine Route Administration Date Status Depo-Provera [...] Education Language: Question Answer Notes Languages spoken: Citizen Of [place] Advent: Question Answer Notes Advent No anabaptist beliefs that would impact health care. Sexual [...] day fo r 30 day(s) Sep, Active Vivitrol 380 MG 4 ml Intramuscular every 30 days for 90 days Duplicat e? Unknown Gabapentin 300 MG 1 capsule Orally Once a day, as needed for anxiety Reported on 12/13?C Active Disulfiram 250 MG 1 tablet Orally Once a day for 30 day(s) Repor yessenia on 12/13 D/C Nov, Active Vivitrol 380 MG 4 ml Intramuscular every 30 days for 90 days Not listed on 12/12 D/C Mar, Unknown hydrOXYzine Pamoate 25 mg 1 capsule as needed Orally once daily for 3 0 Active SEROquel 25 MG 3 tablet at bedtime Orally Once a day fo r 14 12/12 D/C reports 50mg?? Unknown CeleXA 40 MG take one tablet by mouth every day Orally Once a day for 30 days Active Biotin 5000 5 MG 1 capsule Orally Once a day for 30 day(s) Active PROCEDURES No Information RESULTS No Results REASON FOR VISIT refill MEDICAL (GENERAL) HISTORY Type Description Date Medical [...] Notes Treatment Notes Treatm ent Clinical Notes Dec, Depression with anxiety (ICD-10 - F41.8) PLAN OF TREATMENT Medication Medication Name Sig Start Date Stop Date CeleXA 40 MG take one tablet by mouth every day Orally Once a day for 30 days Next Appt Details Provider Name:David Hendricks, 2020-03 11:00:00 AM, [address] [facility], , [place], [address], Insurance Providers Payer Name Payer Address Payer Phone Insured Name Patient Relati onship to Insured Coverage Start Date Coverage End Date [facility] COMMUNITY PLAN [facility] [address] [facility] [phone] TAI ARAYA self
--- OUTSIDE RECORDS SUMMARY | 2020-12-31 12:44 | CCD ---
Author Author [facility] Organization [facility] Address Unknown Phone Unavailable Care Team Providers Care Ring Rolling Machine Operator Name Role Phone David Hendricks Unavailable PROBLEMS Type Condition ICD9-CM Code ZUR19-LP Code Onset Dates Condition S tatus W/U Status Risk SNOMED Code Notes Problem Hypokalemia E87.6 Active confirmed 07662647 Problem Tobacco abuse Z72.0 Active confirmed 102086 05 Problem Anxiety F41.9 Active confirmed 36086276 Problem Fatty liver K76.0 Active confirmed 45626566 7 Problem Alcohol use disorder, mild, in early remission F10 .11 Active confirmed 49875325 Problem Depression with anxiety F41.8 Active confirmed 693485070 Problem Alcohol dependence in early, early partial, sustained full, or sustained partial remission F10.21 Active confirmed 106823618 Problem Alcohol use disorder, mild, abuse F10.10 Active confirmed 23377200 Problem Alcohol abuse F10.10 Active confirmed 176115 05 Problem Hospital discharge follow-up Z09 Active confirme d 921323979 Problem Nicotine dependence with current use F17.200 Act corby confirmed 580813941 Problem Psychophysiological insomnia F51.04 Active confirme d 948935796 Problem Severe episode of recurrent major depressive disorder, without psychotic features F33.2 Active confirmed 16462531 ALLERGIES No Known Allergies ENCOUNTERS from 1984 to 2020-10-02 Encounter Location Date Provider Diagnosis [facility] [address] [facility] [address] [phone] [place] [address] Sep, David Hendricks Fracture T14.8XXA an d Uses control Z78.9 IMMUNIZATIONS Vaccine Route Administration [...] Education Language: Question Answer Notes Languages spoken: [place]ao [place] Worship: Question Answer Notes Worship No anabaptism beliefs that would impact health care. Sexual [...] REASON FOR REFERRAL No Information VITAL SIGNS Weight 143 lbs Sep, Height 66 in Sep, BMI 23.08 kg/m2 Sep, Heart Rate 105 /min Sep, Respiratory Rate 18 /min Sep, Temperature 97.2 degrees Fahrenheit Sep, Oximetry 97 Sep, Blood pressure systolic 110 mm Hg Sep, Blood pressure diastolic 70 mm Hg Sep, MEDICATIONS Medication SIG (Take, Route, Frequency, Duration) [...] fo r 30 day(s) Sep, Active PROCEDURES No Information RESULTS No Results REASON FOR VISIT [facility] ER Follow up MEDICAL (GENERAL) HISTORY Type Description Date Medical [...] Notes Treatment Notes Treatm ent Clinical Notes Sep, Fracture (ICD-10 - T14.8XXA) Orthopedic referral has been placed for the patient. Patient denies any paresthesias and paralysis at this time and therefore there is no need for immediate medical intervention at this time other than orthopedic referral for further management. Patient reports that her pain is under control. Sep, Uses control (ICD-10 - Z78.9) Patient has been scheduled for Depo shot on 10/14/2020 with nursing visit. PLAN OF TREATMENT Treatment Notes Assessment Notes Clinical Notes Fracture Orthopedic referral has been placed for the patient. Patient denies any paresthesias and paralysis at this time and therefore there is no need for immediate medical intervention at this time other than orthopedic referral for further management. Patient reports that her pain is under control. Uses control Patient has been rere eduled for Depo shot on 10/14/2020 with nursing visit. Next Appt Details 6 Months Reason:Wellness checkup Provider Name:David Hendricks, 10-14 08:00:00 AM, [address] [facility], , [place], [address], Follow Up:6 MonthsWellness checkup Insurance Providers Payer Name Payer Address Payer Phone Insured Name Patient Relati onship to Insured Coverage Start Date Coverage End Date [facility] COMMUN[facility] [address] [facility] [phone] TAI ARAYA self
--- OUTSIDE RECORDS SUMMARY | 2020-12-31 12:45 | CCD ---
Author Author [facility] Organization [facility] Address Unknown Phone Unavailable Care Team Providers Care Shells Inspector Name Role Phone Jenni Spring MD Unavailable Unavailable Jenni Spring MD Unavailable Unavailable Jenni Spring MD Unavailable Unavailable Jenni Spring MD Unavailable Unavailable MAUDE ALVAREZ MD Unavailable Unavailable MAUDE ALVAREZ MD Unavailable Unavailable MAUDE ALVAREZ MD Unavailable Unavailable MAUDE ALVAREZ MD Unavailable Unavailable MAUDE ALVAREZ MD Unavailable Unavailable MAUDE ALVAREZ MD Unavailable Unavailable MAUDE ALVAREZ MD Unavailable Unavailable Joycelyn Pugh MD Unavailable Unavailable Joycelyn Pugh MD Unavailable Unavailable Joycelyn Pugh MD Unavailable Unavailable Joycelyn Pugh MD Unavailable Unavailable Joycelyn Pugh MD Unavailable Unavailable Quinn Nicholson MD Unavailable Unavailable Quinn Nicholson MD Unavailable Unavailable Quinn Nicholson MD Unavailable Unavailable Quinn Nicholson MD Unavailable Unavailable ADRIANNA, Bismark VERDUGO MD Unavailable Unavailable ADRIANNA, Bismark VERDUGO MD Unavailable Unavailable ADRIANNA, Bismark VERDUGO MD Unavailable Unavailable ADRIANNA, Bismark VERDUGO MD Unavailable Unavailable ADRIANNA, Bismark VERDUGO MD Unavailable Unavailable ADRIANNA, Bismark VERDUGO MD Unavailable Unavailable ADRIANNA, Bismark VERDUGO MD Unavailable Unavailable ADRIANNA, Bismark VERDUGO MD Unavailable Unavailable ADRIANNA, Bismark VERDUGO MD Unavailable Unavailable ADRIANNA, Bismark VERDUGO MD Unavailable Unavailable ADRIANNA, Bismark VERDUGO MD Unavailable Unavailable ADRIANNA, Bismark VERDUGO MD Unavailable Unavailable ADRIANNA, Bismark VERDUGO MD Unavailable Unavailable ADRIANNA, Bismark VERDUGO MD Unavailable Unavailable ADRIANNA, Bismark VERDUGO MD Unavailable Unavailable ADRIANNA, Bismark VERDUGO MD Unavailable Unavailable ADRIANNA, Bismark VERDUGO MD Unavailable Unavailable ADRIANNA, Bismark VERDUGO MD Unavailable Unavailable ADRIANNA, Bismark VERDUGO MD Unavailable Unavailable ADRIANNA, Bismark VERDUGO MD Unavailable Unavailable ADRIANNA, Bismark VERDUGO MD Unavailable Unavailable ADRIANNA, Bismark VERDUGO MD Unavailable Unavailable ADRIANNA, Bismark VERDUGO MD Unavailable Unavailable ADRIANNA, Bismark VERDUGO MD Unavailable Unavailable ADRIANNA, Bismark VERDUGO MD Unavailable Unavailable ADRIANNA, Bismark VERDUGO MD Unavailable Unavailable ADRIANNA, Bismark VERDUGO MD Unavailable Unavailable ADRIANNA, Bismark VERDUGO MD Unavailable Unavailable ADRIANNA, Bismark VERDUGO MD Unavailable Unavailable ADRIANNA, Bismark VERDUGO MD Unavailable Unavailable ADRIANNA, Bismark VERDUGO MD Unavailable Unavailable ADRIANNA, Bismark VERDUGO MD Unavailable Unavailable ADRIANNA, Bismark VERDUGO MD Unavailable Unavailable ADRIANNA, Bismark VERDUGO MD Unavailable Unavailable ADRIANNA, Bismark VERDUGO MD Unavailable Unavailable ADRIANNA, Bismark VERDUGO MD Unavailable Unavailable ADRIANNA, Bismark VERDUGO MD Unavailable Unavailable ADRIANNA, Bismark VERDUGO MD Unavailable Unavailable ADRIANNA, Bismark VERDUGO MD Unavailable Unavailable ADRIANNA, Bismark VERDUGO MD Unavailable Unavailable ADRIANNA, Bismark VERDUGO MD Unavailable Unavailable Bismark Rai Unavailable Unavailable Bismark Rai Unavailable Unavailable Bismark Rai Unavailable Unavailable Bismark Rai Unavailable Unavailable Bismark Rai PA Unavailable Unavailable Bismark Rai PA Unavailable Unavailable Bismark Rai Unavailable Unavailable Bismark Rai Unavailable Unavailable Bismark Rai Unavailable Unavailable Rai, M Barratt PA Unavailable Unavailable Rai, M Barratt PA Unavailable Unavailable Rai, M Barratt PA Unavailable Unavailable Rai, M Barratt PA Unavailable Unavailable Rai, M Barratt PA Unavailable Unavailable Rai, M Barratt PA Unavailable Unavailable Rai, M Barratt PA Unavailable Unavailable Rai, M Barratt PA Unavailable Unavailable Rai, M Barratt PA Unavailable Unavailable Rai, M Barratt PA Unavailable Unavailable Rai, M Barratt PA Unavailable Unavailable Rai, M Barratt PA Unavailable Unavailable Rai, M Barratt PA Unavailable Unavailable Rai, M Barratt PA Unavailable Unavailable Rai, M Barratt PA Unavailable Unavailable Rai, M Barratt PA Unavailable Unavailable Rai, M Barratt PA Unavailable Unavailable Rai, M Barratt PA Unavailable Unavailable Rai, M Barratt PA Unavailable Unavailable Rai, M Barratt PA Unavailable Unavailable CIERRA ESTRELLA Unavailable Unavailable Salena AQUINO Unavailable Unavailable Nichole DIA SENIOR IT BUSINESS ANALYST Unavailable Unavailable Nichole DIA SENIOR IT BUSINESS ANALYST Unavailable Unavailable Nichole DIA SENIOR IT BUSINESS ANALYST Unavailable Unavailable Joycelyn Pugh MD Unavailable Unavailable Con Penaloza MD Unavailable Unavailable Con Penaloza MD Unavailable Unavailable Con Penaloza MD Unavailable Unavailable Con Penaloza MD Unavailable Unavailable Con Penaloza MD Unavailable Unavailable Con Penaloza MD Unavailable Unavailable Con Penaloza MD Unavailable Unavailable Con Penaloza MD Unavailable Unavailable Con Penaloza MD Unavailable Unavailable Con Penaloza MD Unavailable Unavailable Con Penaloza MD Unavailable Unavailable Con Penaloza MD Unavailable Unavailable Con Penaloza MD Unavailable Unavailable Con Penaloza MD Unavailable Unavailable Con Penaloza MD Unavailable Unavailable Con Penaloza MD Unavailable Unavailable Con Penaloza MD Unavailable Unavailable Con Penaloza MD Unavailable Unavailable Con Penaloza MD Unavailable Unavailable Con Penaloza MD Unavailable Unavailable Con Penaloza MD Unavailable Unavailable Con Penaloza MD Unavailable Unavailable Con Penaloza MD Unavailable Unavailable Con Penaloza MD Unavailable Unavailable Con Penaloza MD Unavailable Unavailable Con Penaloza MD Unavailable Unavailable Con Penaloza MD Unavailable Unavailable Con Penaloza MD Unavailable Unavailable Con Penaloza MD Unavailable Unavailable Jose Cruz Alvarez MD Unavailable Unavailable UNKNOWN Unavailable Unavailable Sienkiewycz, L Dianen FLIGHT STEWARD Unavailable Unavailable Sienkiewycz, L Dianne FLIGHT STEWARD Unavailable Unavailable Sienkiewycz, L Dianne FLIGHT STEWARD Unavailable Unavailable Sienkiewycz, L Dianne FLIGHT STEWARD Unavailable Unavailable Sienkiewycz, L Dianne FLIGHT STEWARD Unavailable Unavailable Sienkiewycz, L Dianne FLIGHT STEWARD Unavailable Unavailable Sienkiewycz, L Dianne FLIGHT STEWARD Unavailable Unavailable BROUGHAL, C TALON PA Unavailable Unavailable BROUGHAL, C TALON PA Unavailable Unavailable BROUGHAL, C TALON PA Unavailable Unavailable BROUGHAL, C TALON PA Unavailable Unavailable BROUGHAL, C TALON PA Unavailable Unavailable BROUGHAL, C TALON PA Unavailable Unavailable Zamarripa, C Indira RPA-C Unavailable Unavailable Zamarripa, C Indira RPA-C Unavailable Unavailable Zamarripa, C Indira RPA-C Unavailable Unavailable Zamarripa, C Indira RPA-C Unavailable Unavailable Zamarripa, C Indira RPA-C Unavailable Unavailable Zamarripa, C Indira RPA-C Unavailable Unavailable Zamarripa, C Indira RPA-C Unavailable Unavailable Zamarripa, C Indira RPA-C Unavailable Unavailable Zamarripa, C Indira RPA-C Unavailable Unavailable Zamarripa, C Indira RPA-C Unavailable Unavailable Zamarripa, C Indira RPA-C Unavailable Unavailable Zamarripa, C Indira RPA-C Unavailable Unavailable Zamarripa, C Indira RPA-C Unavailable Unavailable Zamarripa, C Indira RPA-C Unavailable Unavailable Zamarripa, C Indira RPA-C Unavailable Unavailable Zamarripa, C Indira RPA-C Unavailable Unavailable Zamarripa, C Indira RPA-C Unavailable Unavailable Zamarripa, C Indira RPA-C Unavailable Unavailable Zamarripa, C Indira RPA-C Unavailable Unavailable Zamarripa, C Indira RPA-C Unavailable Unavailable Zamarripa, C Indira RPA-C Unavailable Unavailable Zamarripa, C Indira RPA-C Unavailable Unavailable Zamarripa, C Indira RPA-C Unavailable Unavailable Zamarripa, C Indira RPA-C Unavailable Unavailable Zamarripa, C Indira RPA-C Unavailable Unavailable Zamarripa, C Indira RPA-C Unavailable Unavailable Zamarripa, C Indira RPA-C Unavailable Unavailable Zamarripa, C Indira RPA-C Unavailable Unavailable Re-disclosure Warning The records that you are about to access may contain information from federally-assisted alcohol or drug abuse programs. If such information is present, then the following federally mandated warning applies: This information has been disclosed to you from records protected by federal confidentiality rules (42 CFR part 2). The federal rules prohibit you from making any further disclosure of this information unless further disclosure is expressly permitted by the written consent of the person to whom it pertains or as otherwise permitted by 42 CFR part 2. A general authorization for the release of medical or other information is NOT sufficient for this purpose. The Federal rules restrict any use of the information to criminally investigate or prosecute any alcohol or drug abuse patient.The records that you are about to access may contain highly sensitive health information, the redisclosure of which is protected by Article 27-F of the [facility] Public Health law. If you continue you may have access to information: Regarding HIV / AIDS; Provided by facilities licensed or operated by the [facility] Office of Mental Health; or Provided by the [facility] Office for People With Developmental Disabilities. If such information is present, then the following [facility] mandated warning applies: This information has been disclosed to you from confidential records which are protected by state law. State law prohibits you from making any further disclosure of this information without the specific written consent of the person to whom it pertains, or as otherwise permitted by law. Any unauthorized further disclosure in violation of state law may result in a fine or group home sentence or both. A general authorization for the release of medical or other information is NOT sufficient authorization for further disc losure. Allergies and Adverse Reactions Type Description Substance Reaction Status Data Source(s ) Propensity to adverse reactions Propensity to adverse reacti ons No Known Drug Allergies [facility] No Known Allergy [facility] Hospital Encounters Encounter Providers Location Date Indications Data Source(s ) Unknown [address] [facility] [place] [address] 12/19/2020 12:00:00 AM EDT eCW1 ([facility]) Unknown [address] [facility] [place] [address] 12/15/2020 12:00:00 AM EDT eCW1 ([facility]) Outpatient [address] [facility] [place] [address] 10/24/2020 12:00:00 AM EDT eCW1 ([facility]) Outpatient Attender: Jason SAINZ Physical Therapy 02:45:00 PM EDT MEDENT ([facility]) [place] [address] [facility] [place] [address] 09/30/2020 12:00:00 AM EDT eCW1 ([facility]) [place] [address] [facility] [address] 09/30/2020 12:00:00 AM EDT eCW1 ([facility]) [place] [address] [facility] [address] 09/16/2020 12:00:00 AM EDT eCW1 ([facility]) Inpatient Attender: Cookie Spring MDAdmitter: Cookie navarro MD SURG-MED 09/12/2020 04:20:00 PM EDT - 09/13/2020 05:30:00 PM EDT [facility] Patient discharged. Inpatient Attender: Cookie Spring MDAdmitter: Cookie navarro MD SURG-MED 09/12/2020 04:20:00 PM EDT [facility] V Attender: Cookie Spring MDAdmitter: Cookie navarro MD SURG-MED 09/12/2020 02:55:00 PM EDT [facility] Patient admitted. Outpatient Attender: Dianne Cesar NP SURG-NPLAB 09/12/2020 02:01:00 PM EDT [facility] Unknown [address] [facility] [address] 07/15/2020 12:00:00 AM EDT eCW1 ([facility]) [place] [address] [facility] [place] [address] 07/15/2020 12:00:00 AM EDT eCW1 ([facility]) [place] [address] [facility] [address] 07/08/2020 12:00:00 AM EDT eCW1 ([facility]) [place] [address] [facility] [place] [address] 05/30/2020 12:00:00 AM EST [facility]1 [facility] [place] [address] [facility] [place] [address] 04/21/2020 12:00:00 AM EST eCW1 ([facility]) [place] [address] [facility] [place] [address] 04/08/2020 12:00:00 AM EST eCW1 ([facility]) [place] [address] [facility] [place] [address] 04/08/2020 12:00:00 AM EST eCW1 ([facility]) [place] [address] [facility] [address] 04/08/2020 12:00:00 AM EST eCW1 ([facility]) Outpatient Attender: UNKNOWN CPSCALOR-LABEJN 03/26/2020 09:45:00 AM E [facility] Inpatient Attender: Con Penaloza MDAdmitter: Con tyson MD ED-[facility] 03/26/2020 04:22:00 AM EST - 03/29/2020 11:20:00 AM EST 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 Outpatient Attender: RAYRAY AQUINO 01/08/2020 06:00:00 PM [facility] Outpatient Attender: RAYRAY AQUINO 12/24/2019 04:00:00 PM [facility] Outpatient Attender: CIERRA ESTRELLA 12/24/2019 02:00:00 PM ED [facility] Outpatient Attender: Indira BUCKLEY CPSCAORT-CHEPDREH 12/19/2019 08:30:00 AM EDT - 12/19/2019 08:31:[address] [facility] MAR Patient discharged. Inpatient Attender: Maude Pina nder: MAUDE ALVAREZ MDAdmitter: MAUDE ALVAREZ MD CPSCAORT-CHEPPDREH 11/24/2019 09:54:00 AM EDT - 12/19/2019 06:02:00 AM EDT PSYCHOACTIVE SUBSTANCE DEPENDENCE [facility] PSYCHOACTIVE SUBSTANCE DEPENDENCE Patient discharged. Inpatient Attender: Imre Frida-Ojrge MDAttender: Sylwia Pugh MDAdmitter: Sylwia Pugh MDConsultant: ATLON BEAR PAConsultant: Quinn Nicholson MD CPSCAORT-MSU2 11/20/2019 11:30:00 PM EDT - 11/24/2019 10:00:00 AM EDT ETOH WITHDRAWAL,COVID POSITIVE [facility] ETOH WITHDRAWAL,COVID POSITIVE Patient discharged. Emergency Attender: GEORGE DIA [facility] ED-ED 03/2019 06:06:00 PM EDT - 11/20/2019 10:45:00 PM EDT [facility] Patient discharged. Outpatient Attender: LUCINA RODAS MD ED-LABPNP 2019 04:44:00 PM EDT - 11/20/2019 04:45:00 PM EDT POSSIBLE COVID EXPOSURE [facility] POSSIBLE COVID EXPOSURE Patient discharged. Immunizations Vaccine Date Status Description Data Source(s) 10/24/2020 09:51:00 AM EDT completed e CW1 ([facility]) 10/24/2020 09:51:00 AM EDT completed e CW1 ([facility]) 07/15/2020 09:52:00 AM EDT completed e CW1 ([facility]) 07/15/2020 09:52:00 AM EDT completed e CW1 ([facility]) 07/15/2020 09:52:00 AM EDT completed e CW1 ([facility]) 07/15/2020 09:52:00 AM EDT completed e CW1 ([facility]) 07/15/2020 09:52:00 AM EDT completed e CW1 ([facility]) 07/15/2020 09:52:00 AM EDT completed e CW1 ([facility]) 07/15/2020 09:52:00 AM EDT completed e CW1 ([facility]) 07/15/2020 09:52:00 AM EDT completed e CW1 ([facility]) Medications Medication Brand Name Start Date Product Form Dose Route Admi nistrative Instructions Pharmacy Instructions Status Indications Reaction Description Data Source(s) Disulfiram 250 MG Oral Tablet Disulfiram 250 MG 12/12/2020 12:00:00 AM EDT 1.0 {tablet} active Disulfiram 250 MG eCW1 ([facility]) Disulfiram 250 MG Oral Tablet Disulfiram 250 MG 12/12/2020 12:00:00 AM EDT 1.0 {tablet} active Disulfiram 250 MG eCW1 ([facility]) 250 mg 09/30/2020 12:00:00 AM EDT tablet 30 TAKE ONE TABLET BY MOUTH EVERY DAY TAKE ONE TABLET BY MOUTH EVERY DAY SOLD: 10/30/2020 [facility] 250 mg 09/30/2020 12:00:00 AM EDT tablet 30 TAKE ONE TABLET BY MOUTH EVERY DAY TAKE ONE TABLET BY MOUTH EVERY DAY SOLD: 12/02/2020 [facility] 250 mg 09/30/2020 12:00:00 AM EDT tablet 30 TAKE ONE TABLET BY MOUTH EVERY DAY TAKE ONE TABLET BY MOUTH EVERY DAY SOLD: 09/30/2020 [facility] 300 mg 09/29/2020 12:00:00 AM EDT capsule 30 TAKE ONE CAPSULE BY MOUTH EVERY DAY NEEDED TAKE ONE CAPSULE BY MOUTH EVERY DAY NEEDED SOLD: 10/30/2020 [facility] 300 mg 09/29/2020 12:00:00 AM EDT capsule 30 TAKE ONE CAPSULE BY MOUTH EVERY DAY NEEDED TAKE ONE CAPSULE BY MOUTH EVERY DAY NEEDED SOLD: 09/30/2020 [facility] 300 mg 09/29/2020 12:00:00 AM EDT capsule 30 TAKE ONE CAPSULE BY MOUTH EVERY DAY NEEDED TAKE ONE CAPSULE BY MOUTH EVERY DAY NEEDED SOLD: 12/02/2020 [facility] 333 mg 09/27/2020 12:00:00 AM EDT tablet,delayed release (DR/EC) 180 TAKE TWO TABLETS BY MOUTH THREE TIMES A DAY TAKE TWO TABLETS BY MOUTH THREE TIMES A DAY SOLD: 09/30/2020 [facility] Acamprosate calcium 333 MG Delayed Relea se Oral Tablet Acamprosate Calcium 333 MG Acamprosate Calcium 333 MG 09/23/2020 12:00:00 AM EDT 2.0 {table ts} active Acamprosate Calcium 333 MG eCW1 ([facility]) Acamprosate calcium 333 MG Delayed Relea se Oral Tablet Acamprosate Calcium 333 MG Acamprosate Calcium 333 MG 09/23/2020 12:00:00 AM EDT 2.0 {table ts} active Acamprosate Calcium 333 MG eCW1 ([facility]) Acamprosate calcium 333 MG Delayed Relea se Oral Tablet Acamprosate Calcium 333 MG Acamprosate Calcium 333 MG 09/23/2020 12:00:00 AM EDT 2.0 {table ts} active Acamprosate Calcium 333 MG eCW1 ([facility]) Acamprosate calcium 333 MG Delayed Relea se Oral Tablet Acamprosate Calcium 333 MG Acamprosate Calcium 333 MG 09/23/2020 12:00:00 AM EDT 2.0 {table ts} active Acamprosate Calcium 333 MG eCW1 ([facility]) Acamprosate calcium 333 MG Delayed Relea se Oral Tablet Acamprosate Calcium 333 MG Acamprosate Calcium 333 MG 09/23/2020 12:00:00 AM EDT 2.0 {table ts} active Acamprosate Calcium 333 MG eCW1 ([facility]) Acamprosate calcium 333 MG Delayed Relea se Oral Tablet Acamprosate Calcium 333 MG Acamprosate Calcium 333 MG 09/23/2020 12:00:00 AM EDT 2.0 {table ts} active Acamprosate Calcium 333 MG eCW1 ([facility]) Acamprosate calcium 333 MG Delayed Relea se Oral Tablet Acamprosate Calcium 333 Mg Tablet.dr Dick, 666 Mg Oral Acamprosate Calcium 333 Mg Tablet.dr Dick, 666 Mg Oral 09/13/2020 12:00:00 AM EDT 666 completed Three Times a Day [facility] Acamprosate calcium 333 MG Delayed Relea se Oral Tablet Acamprosate Calcium 333 MG TABLET. Acamprosate Calcium 333 MG TABLET. 09/13/2020 12:00:00 AM EDT 666 completed Three Times a Day [facility] 25 mg 09/08/2020 12:00:00 AM EDT capsule 30 TAKE ONE CAPSULE BY MOUTH EVERY DAY NEEDED TAKE ONE CAPSULE BY MOUTH EVERY DAY NEEDED SOLD: 11/15/2020 [facility] 25 mg 09/08/2020 12:00:00 AM EDT capsule 30 TAKE ONE CAPSULE BY MOUTH EVERY DAY NEEDED TAKE ONE CAPSULE BY MOUTH EVERY DAY NEEDED SOLD: 10/16/2020 [facility] 25 mg 09/08/2020 12:00:00 AM EDT capsule 30 TAKE ONE CAPSULE BY MOUTH EVERY DAY NEEDED TAKE ONE CAPSULE BY MOUTH EVERY DAY NEEDED SOLD: 09/16/2020 [facility] 30 mg 08/23/2020 12:00:00 AM EDT capsule 12 TAKE ONE CAPSULE BY MOUTH THREE TIMES A DAY NEEDED FOR WITHDRAWAL SYMPTOMS MAXIMUM DAILY DOSE = 3 TAKE ONE CAPSULE BY MOUTH THREE TIMES A DAY NEEDED FOR WITHDRAWAL SYMPTOMS MAXIMUM DAILY DOSE = 3 SOLD: 08/25/2020 [facility] 25 mg 06/24/2020 12:00:00 AM EDT tablet 42 TAKE THREE TABLETS BY MOUTH AT BEDTIME TAKE THREE TABLETS BY MOUTH AT BEDTIME SOLD: 06/30/2020 [facility] 25 mg 05/28/2020 12:00:00 AM EST tablet 42 TAKE THREE TABLETS BY MOUTH AT BEDTIME ONCE DAILY FOR 2 WEEKS TAKE THREE TABLETS BY MOUTH AT BEDTIME O NCE DAILY FOR 2 WEEKS SOLD: 06/13/2020 [facility] 25 mg 05/28/2020 12:00:00 AM EST tablet 42 TAKE THREE TABLETS BY MOUTH AT BEDTIME ONCE DAILY FOR 2 WEEKS TAKE THREE TABLETS BY MOUTH AT BEDTIME O NCE DAILY FOR 2 WEEKS SOLD: 05/30/2020 [facility] Citalopram 40 MG Oral Tablet CITALOPRAM HYDROBROMIDE 05/17/2020 12:00:00 AM EST tablet 30 TAKE ONE TABLET BY MOUTH EVERY D AY TAKE ONE TABLET BY MOUTH EVERY DAY SOLD: 09/16/2020 [facility] Citalopram 40 MG Oral Tablet CITALOPRAM HYDROBROMIDE 05/17/2020 12:00:00 AM EST tablet 30 TAKE ONE TABLET BY MOUTH EVERY D AY TAKE ONE TABLET BY MOUTH EVERY DAY SOLD: 05/17/2020 [facility] Citalopram 40 MG Oral Tablet CITALOPRAM HYDROBROMIDE 05/17/2020 12:00:00 AM EST tablet 30 TAKE ONE TABLET BY MOUTH EVERY D AY TAKE ONE TABLET BY MOUTH EVERY DAY SOLD: 06/24/2020 [facility] Citalopram 40 MG Oral Tablet CITALOPRAM HYDROBROMIDE 05/17/2020 12:00:00 AM EST tablet 30 TAKE ONE TABLET BY MOUTH EVERY D AY TAKE ONE TABLET BY MOUTH EVERY DAY SOLD: 08/12/2020 [facility] 25 mg 04/26/2020 12:00:00 AM EST capsule 30 TAKE ONE CAPSULE BY MOUTH EVERY DAY NEEDED TAKE ONE CAPSULE BY MOUTH EVERY DAY NEEDED SOLD: 05/30/2020 [facility] 25 mg 04/26/2020 12:00:00 AM EST capsule 30 TAKE ONE CAPSULE BY MOUTH EVERY DAY NEEDED TAKE ONE CAPSULE BY MOUTH EVERY DAY NEEDED SOLD: 04/29/2020 [facility] 25 mg 04/26/2020 12:00:00 AM EST capsule 30 TAKE ONE CAPSULE BY MOUTH EVERY DAY NEEDED TAKE ONE CAPSULE BY MOUTH EVERY DAY NEEDED SOLD: 08/12/2020 [facility] 25 mg 04/26/2020 12:00:00 AM EST capsule 30 TAKE ONE CAPSULE BY MOUTH EVERY DAY NEEDED TAKE ONE CAPSULE BY MOUTH EVERY DAY NEEDED SOLD: 06/30/2020 [facility] 25 mg 04/21/2020 12:00:00 AM EST tablet 42 TAKE THREE TABLETS BY MOUTH EVERY DAY AT BEDTIME TAKE THREE TABLETS BY MOUTH EVERY DAY AT BEDTIME SOLD: 05/04/2020 [facility] 25 mg 04/21/2020 12:00:00 AM EST tablet 42 TAKE THREE TABLETS BY MOUTH EVERY DAY AT BEDTIME TAKE THREE TABLETS BY MOUTH EVERY DAY AT BEDTIME SOLD: 05/17/2020 [facility] 25 mg 04/21/2020 12:00:00 AM EST tablet 42 TAKE THREE TABLETS BY MOUTH EVERY DAY AT BEDTIME TAKE THREE TABLETS BY MOUTH EVERY DAY AT BEDTIME SOLD: 04/21/2020 [facility] quetiapine 25 MG Oral Tablet [Seroquel] SEROquel 25 MG SEROq uel 25 MG 04/08/2020 12:00:00 AM EST 1.0 {tablet_at_bedtime} active SEROquel 25 MG eCW1 ([facility]) Naltrexone 112 MG/ML Injectable Suspension [Vivitrol] Vivitrol 380 MG Vivitrol 380 MG 04/08/2020 12:00:00 AM EST 4.0 {ml} active Vivitrol 380 MG eCW1 ([facility]) Naltrexone 112 MG/ML Injectable Suspension [Vivitrol] Vivitrol 380 MG Vivitrol 380 MG 04/08/2020 12:00:00 AM EST 4.0 {ml} active Vivitrol 380 MG eCW1 ([facility]) Naltrexone 112 MG/ML Injectable Suspension [Vivitrol] Vivitrol 380 MG Vivitrol 380 MG 04/08/2020 12:00:00 AM EST 4.0 {ml} active Vivitrol 380 MG eCW1 ([facility]) Naltrexone 112 MG/ML Injectable Suspension [Vivitrol] Vivitrol 380 MG Vivitrol 380 MG 04/08/2020 12:00:00 AM EST 4.0 {ml} active Vivitrol 380 MG eCW1 ([facility]) Naltrexone 112 MG/ML Injectable Suspension [Vivitrol] Vivitrol 380 MG Vivitrol 380 MG 04/08/2020 12:00:00 AM EST 4.0 {ml} active Vivitrol 380 MG eCW1 ([facility]) Naltrexone 112 MG/ML Injectable Suspension [Vivitrol] Vivitrol 380 MG Vivitrol 380 MG 04/08/2020 12:00:00 AM EST 4.0 {ml} active Vivitrol 380 MG eCW1 ([facility]) Naltrexone 112 MG/ML Injectable Suspension [Vivitrol] Vivitrol 380 MG Vivitrol 380 MG 04/08/2020 12:00:00 AM EST 4.0 {ml} active Vivitrol 380 MG eCW1 ([facility]) Naltrexone 112 MG/ML Injectable Suspension [Vivitrol] Vivitrol 380 MG Vivitrol 380 MG 04/08/2020 12:00:00 AM EST 4.0 {ml} active Vivitrol 380 MG eCW1 ([facility]) Naltrexone 112 MG/ML Injectable Suspension [Vivitrol] Vivitrol 380 MG Vivitrol 380 MG 04/08/2020 12:00:00 AM EST 4.0 {ml} active Vivitrol 380 MG eCW1 ([facility]) Naltrexone 112 MG/ML Injectable Suspension [Vivitrol] Vivitrol 380 MG Vivitrol 380 MG 04/08/2020 12:00:00 AM EST 4.0 {ml} active Vivitrol 380 MG eCW1 ([facility]) Naltrexone 112 MG/ML Injectable Suspension [Vivitrol] Vivitrol 380 MG Vivitrol 380 MG 04/08/2020 12:00:00 AM EST 4.0 {ml} active Vivitrol 380 MG eCW1 ([facility]) Naltrexone 112 MG/ML Injectable Suspension [Vivitrol] Vivitrol 380 MG Vivitrol 380 MG 04/08/2020 12:00:00 AM EST 4.0 {ml} active Vivitrol 380 MG eCW1 ([facility]) Naltrexone 112 MG/ML Injectable Suspension [Vivitrol] Vivitrol 380 MG Vivitrol 380 MG 04/08/2020 12:00:00 AM EST 4.0 {ml} active Vivitrol 380 MG eCW1 ([facility]) Naltrexone 112 MG/ML Injectable Suspension [Vivitrol] Vivitrol 380 MG Vivitrol 380 MG 04/08/2020 12:00:00 AM EST 4.0 {ml} active Vivitrol 380 MG eCW1 ([facility]) quetiapine 25 MG Oral Tablet [Seroquel] SEROquel 25 MG SEROq uel 25 MG 04/08/2020 12:00:00 AM EST 1.0 {tablet_at_bedtime} active SEROquel 25 MG eCW1 ([facility]) Naltrexone 112 MG/ML Injectable Suspension [Vivitrol] Vivitrol 380 MG Vivitrol 380 MG 04/08/2020 12:00:00 AM EST 4.0 {ml} active Vivitrol 380 MG eCW1 ([facility]) Naltrexone 112 MG/ML Injectable Suspension [Vivitrol] Vivitrol 380 MG Vivitrol 380 MG 04/08/2020 12:00:00 AM EST 4.0 {ml} active Vivitrol 380 MG eCW1 ([facility]) Naltrexone 112 MG/ML Injectable Suspension [Vivitrol] Vivitrol 380 MG Vivitrol 380 MG 04/08/2020 12:00:00 AM EST 4.0 {ml} active Vivitrol 380 MG eCW1 ([facility]) quetiapine 25 MG Oral Tablet [Seroquel] SEROquel 25 MG SEROq uel 25 MG 04/08/2020 12:00:00 AM EST 1.0 {tablet_at_bedtime} active SEROquel 25 MG eCW1 ([facility]) 1 mg 11/08/2019 12:00:00 AM EDT tablet 12 TAKE ONE TABLET BY MOUTH THREE TIMES A DAY FOR 2 DAYS TAKE ONE TABLET BY MOUTH TWICE A DAY FOR 2 DAYS TAKE ONE TABLET BY MOUTH EVERY DAY FOR 2 DAYS MAXIMUM DAILY DOSE = 3 TABLETS TAKE ONE TABLET BY MOUTH THREE TIMES A DAY FOR 2 DAYS TAKE ONE TABLET BY MOUTH TWICE A DAY FOR 2 DAYS TAKE ONE TABLET BY MOUTH EVERY DAY FOR 2 DAYS MAXIMUM DAILY DOSE = 3 TABLETS SOLD: 11/08/2019 Kurt Mcmullen s Insurance Providers Payer name Policy type / Coverage type Policy ID Covered green party ID Covered green party's relationship to cardoso Policy Cardoso Plan Information [facility] [id number] Unemploye d [id number] [facility] [id number] S [id number] [facility] [id number] Unemploye d [id number] SELF PAY SP [facility] COMMUNITY PLAN MCDHMO [id number] SP [id number] [facility]) O [id number] S [id number] [facility] [place] [id number] S [id number] [facility] MEDICAID [id number] S [id number] SELF PAY ONLY [id number] SP [id number] MEDICAID [id number] S [id number] [facility] COMMUNITY PLAN MCDHMO NO CARDS SP NO CARDS [facility] [id number] Unemploye d [id number] SELF PAY Unemployed [facility] [id number] SP [id number] [facility] [id number] S [id number] [facility] [id number] S [id number] SELF PAY ONLY [id number] SP [id number] MEDICAID [id number] SP [id number] [facility] [id number] ANSI-Medicaid [id number] ANSI-Medicaid [id number] ANSI-Medicaid [id number] ANSI-Medicaid [id number] ANSI-Medicaid [id number] [facility] COMMUNITY PLAN MCDO [id number] SP [id number] [facility] COMMUNITY PLAN MCDO [id number] SP [id number] [facility] [id number] SP [id number] ANSI-Medicaid [id number] ANSI-Medicaid [id number] MEDICAID [id number] SP [id number] MEDICAID [id number] SP [id number] [facility]) O [id number] S [id number] [facility] [id number] SP [id number] [employer] [id number] SP [id number] [employer] O [id number] S [id number] [employer] [id number] SP [id number] MEDICAID - CLINIC [id number] [facility] [id number] SP [id number] [facility] COMMUNITY PLAN [facility] [id number] SP [id number] [facility] COMMUNITY PLAN [id number] SP [id number] Problems, Conditions, and Diagnoses Code Display Name Description Problem Type Effective Dates Data Source(s) Y90.0 Blood alcohol level of less than 20 mg/1 00 ml BLOOD ALCOHOL LEVEL OF LESS THAN 20 MG/100 ML Diagnosis 03/26/2020 04:22:00 AM [facility] spital Z91.81 History of falling HISTORY OF FALLING Diagnosis 08/2020 04:22:00 AM [facility] M25.531 Pain in right wrist PAIN IN RIGHT WRIST Diagnosis 0 03/26/2020 04:22:00 AM [facility] Z53.29 Procedure and treatment not carried out because of patient's decision for other reasons PROC/TRTMT NOT CRD OUT BEC PT DECISION FOR OTH REASONS Diagn osis 03/26/2020 04:22:00 AM [facility] F34.1 Dysthymic disorder DYSTHYMIC DISORDER Diagnosis 08/2020 04:22:00 AM [facility] F17.210 Nicotine dependence, cigarettes, uncompl icated NICOTINE DEPENDENCE, CIGARETTES, UNCOMPLICATED Diagnosis 03/26/2020 04:22:00 AM [facility] F10.230 Alcohol dependence with withdrawal, unco mplicated ALCOHOL DEPENDENCE WITH WITHDRAWAL, UNCOMPLICATED Diagnosis 03/26/2020 04:22:00 AM [facility] F10.11 ALCOHOL ABUSE, IN REMISSION ALCOHOL ABUSE, IN REMISSIO N Diagnosis 12/24/2019 02:00:00 PM [facility] F41.9 Anxiety disorder, unspecified ANXIETY DISORDER, UNSPEC IFIED Diagnosis 12/24/2019 02:00:00 PM [facility] F10.21 Alcohol dependence, in remission ALCOHOL DEPENDE NCE, IN REMISSION Diagnosis 12/24/2019 02:00:00 PM [facility] Z71.3 Dietary counseling and surveillance DIETARY COUN SELING AND SURVEILLANCE Diagnosis 11/24/2019 09:54:00 AM [facility] G47.00 Insomnia, unspecified INSOMNIA, UNSPECIFIED Diagnosis 11/24/2019 09:54:[facility] F32.9 Major depressive disorder, single episod e, unspecified MAJOR DEPRESSIVE DISORDER, SINGLE EPISODE, UNSPECIFIED Diagnosis 11/24/2019 09:54:00 AM [facility] F41.9 Anxiety disorder, unspecified ANXIETY DISORDER, UNSPEC IFIED Diagnosis 11/24/2019 09:54:00 AM [facility] Z86.19 Personal history of other infectious and parasitic diseases PERSONAL HISTORY OF OTHER INFECTIOUS AND PARASITIC DISEASES Diagnosis 07/2019 09:54:00 AM [facility] R74.0 Nonspecific elevation of lev els of transaminase and lactic acid dehydrogenase [LDH] NONSPEC ELEV OF LEVELS OF TRANSAMNS & LA CTIC ACID DEHYDRGNSE Diagnosis 11/24/2019 09:54:00 AM EDT [facility] Z98.84 Bariatric surgery status BARIATRIC SURGERY STATUS Diag nosis 11/24/2019 09:54:00 AM [facility] F17.210 Nicotine dependence, cigarettes, uncompl icated NICOTINE DEPENDENCE, CIGARETTES, UNCOMPLICATED Diagnosis 11/24/2019 09:54:00 AM [facility] F10.20 Alcohol dependence, uncomplicated ALCOHOL DEPEND ENCE, UNCOMPLICATED Diagnosis 11/24/2019 09:54:00 AM [facility] F34.1 Dysthymic disorder DYSTHYMIC DISORDER Diagnosis 03/2019 11:30:00 PM [facility] K70.10 Alcoholic hepatitis without ascites ALCOHOLIC HE PATITIS WITHOUT ASCITES Diagnosis 11/20/2019 11:30:00 PM [facility] I10 Essential (primary) hypertension ESSENTIAL (PRIMARY) H YPERTENSION Diagnosis 11/20/2019 11:30:00 PM [facility] U07.1 COVID-19 COVID-19 Diagnosis 11/20/2019 11:30:00 PM ED T [facility] F10.230 Alcohol dependence with withdrawal, unco mplicated ALCOHOL DEPENDENCE WITH WITHDRAWAL, UNCOMPLICATED Diagnosis 11/20/2019 11:30:00 PM EDT [facility] 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, hypnotic, or anxiolytic use, u nspecified, uncomplicated SEDATIVE, HYPNOTIC, OR ANXIOLYTIC USE, UNSP, UNCOMPLICATED Diagnosis 11/20/2019 06:06:00 PM EDT [facility] U07.1 COVID-19 COVID-19 Diagnosis 11/20/2019 06:06:00 PM ED T [facility] F10.232 Alcohol dependence with withdrawal with perceptual disturbance ALCOHOL DEPENDENCE W WITHDRAWAL WITH PERCEPTUAL DISTURBANCE Diagnosis 06:06:00 PM EDT [facility] Z20.828 Contact with and (suspected) exposure to other viral communicable diseases CONTACT W AND EXPOSURE TO OTH VIRAL COMMUNICABLE DISEASES Di agnosis 11/20/2019 04:44:00 PM EDT [facility] F10.10 [id number] Alcohol use disorder, mild, abuse Problem 09/23/2020 12:00:00 AM EDT eCW1 ([facility]) F33.2 [id number] Severe episode of re current major depressive disorder, without psychotic features Problem 04/21/2020 12:00:00 AM EST eCW1 ([facility]) F41.8 [id number] Depression with anxiety Problem 04/21/2020 1 2:00:00 AM EST eCW1 ([facility]) F51.04 [id number] Psychophysiological insomnia Problem 04/08/2020 12:00:00 AM EST eCW1 ([facility]) F17.200 [id number] Nicotine dependence with current use Prob darling 04/08/2020 12:00:00 AM EST eCW1 ([facility]) Surgeries/Procedures Procedure Description Date Indications Data Source(s) Injection, medroxyprogesterone acetate for contraceptive use , 150 mg 10/24/2020 12:00:00 AM EDT eCW1 ([facility]) OFFICE OUTPATIENT NEW 45 MINUTES 10/01/2020 12:00:00 A M EDT [facility] ([facility]) CLTX PHLNGL FX PROX/MIDDLE PX/F/T W/O MANJ EA 10/02/19 12:00:00 AM EDT [facility] ([facility]) Detoxification Services for Substance Abuse Treatment DETOXIFICATION SERVICES FOR SUBSTANCE ABUSE TREATMENT 09/12/2020 12:00:00 AM EDT [facility]. Naltrexone 380mg (Pt Supplied) 07/15/2020 12:00:00 AM EDT eCW1 ([facility]) Injection, medroxyprogesterone acetate for contraceptive use , 150 mg 07/15/2020 12:00:00 AM EDT [facility] ([facility]) Naltrexone 380mg (Pt Supplied) 05/30/2020 12:00:00 AM EST [facility] ([facility]) URINE TEST 04/21/2020 12:00:00 AM EST [facility] ([facility]) Naltrexone 380mg 04/21/2020 12:00:00 AM EST [facility] ([facility]) Injection, medroxyprogesterone acetate for contraceptive use , 150 mg 04/21/2020 12:00:00 AM EST [facility] ([facility]) ECG ROUTINE ECG W/LEAST 12 LDS W/I&R 04/21/2020 12:00: 00 AM [place] [address] ([facility]) Individual Counseling for Substance Abuse Treatment, C ontinuing Care INDIV ACTIVITY COORDINATOR FOR SUBSTANCE ABUSE TREATMENT, CONTINUING CARE 03/29/2020 12:00:00 AM [facility] Detoxification Services for Substance Abuse Treatment DETOXIFICATION SERVICES FOR SUBSTANCE ABUSE TREATMENT 03/27/2020 12:00:00 AM [facility] Individual Counseling for Substance Abuse Treatment, C ognitive-Behavioral INDIV ACTIVITY COORDINATOR FOR SUBSTANCE ABUSE, COGNITIVE BEHAVIORAL 11/25/2019 12:00:00 AM [facility] Group Counseling for Substance Abuse Treatment, Motiva tional Enhancement GROUP ACTIVITY COORDINATOR FOR SUBSTANCE ABUSE, MOTIVATIONAL ENHANCE 11/25/2019 12:00:00 AM [facility] Group Counseling for Substance Abuse Treatment, Spirit ual GROUP COUNSELING FOR SUBSTANCE ABUSE TREATMENT, SPIRITUAL 11/25/2019 12:00:00 AM [facility] Group Counseling for Substance Abuse Treatment, Cognit corby-Behavioral GROUP ACTIVITY COORDINATOR FOR SUBSTANCE ABUSE, COGNITIVE BEHAVIORAL 11/25/2019 12:00:00 AM [facility] [address] X-RAY EXAM CHEST 1 VIEW 11/20/2019 12:00:00 AM [facility] ECG ROUTINE ECG W/LEAST 12 LDS TRCG ONLY W/O I&R ELECTROCARD IOGRAM TRACING 11/20/2019 12:00:00 AM [facility] IADNA MYCOPLSM PNEUMONIAE AMPLIFIED PROBE TQ M.PNEUMON DNA A MP PROBE 11/20/2019 12:00:00 AM [facility] IADNA CHLAMYDIA PNEUMONIAE AMPLIFIED PROBE TQ CHYLMD PNEUM D NA AMP PROBE 11/20/2019 12:00:00 AM [facility] IADNA NOS AMPLIFIED PROBE TQ EACH ORGANISM DETECT AGENT NOS DNA AMP 11/20/2019 12:00:00 AM [facility] [address] RESP VIRUS 12-25 TARGETS 11/20/2019 12:00:00 AM [facility] URNLS DIP STICK/TABLET RGNT AUTO W/O MICROSCOPY URINALYSIS A UTO W/O SCOPE 11/20/2019 12:00:00 AM [facility] COLLECTION VENOUS BLOOD VENIPUNCTURE ROUTINE VENIPUNCTURE 12:00:00 AM [facility] BLOOD COUNT COMPLETE AUTO&AUTO DIFRNTL WBC COUNT COMPLETE CB C W/AUTO DIFF WBC 11/20/2019 12:00:00 AM [facility] 26136 DRUG SCREEN QUANTALCOHOLS 11/20/2019 12:00:00 AM [facility] 75050 DRUG TEST PRSMV DIR OPT OBS 11/20/2019 12:00:00 AM [facility] URINE TEST VISUAL COLOR CMPRSN METHS URINE PREGNAN CY TEST 11/20/2019 12:00:00 AM [facility] TROPONIN QUANTITATIVE ASSAY OF TROPONIN QUANT 11/20/2019 12:00:00 A M [facility] COMPREHENSIVE METABOLIC PANEL COMPREHEN METABOLIC PANEL 03/2019 12:00:00 AM [facility] Injection, magnesium sulfate, per 500 mg 11/20/2019 12 :00:00 AM [facility] Infusion, normal saline solution , 1000 cc 11/20/2019 12:00:00 AM [facility] Injection, thiamine hcl, 100 mg 11/20/2019 12:00:00 AM [facility] THERAPEUTIC INJECTION IV PUSH EACH NEW DRUG TX/PRO/DX INJ NE W DRUG ADDON 11/20/2019 12:00:00 AM EDT [facility] THER PROPH/DX NJX IV PUSH SINGLE/1ST SBST/DRUG THER/PROPH/DI AG INJ IV PUSH 11/20/2019 12:00:00 AM EDT [facility] IV INFUSION HYDRATION EACH ADDITIONAL HOUR HYDRATE IV INFUSI ON ADD-ON 11/20/2019 12:00:00 AM [facility] EMERGENCY DEPT VISIT HIGH SEVERITY&THREAT FUNCJ EMERGENCY DE PT VISIT 11/20/2019 12:00:00 AM EDT [facility] Results ID Date Data Source [id number] 12/10/2020 06:31:00 PM EDT [facility] Name Value Range Interpretation Code Description Data Nataly rce(s) Supporting Document(s) SARS-CoV-2 (COVID 19) NEGATIVE - SARS-CoV-2 (COVID19) [facility] This lab was ordered by [facility] a nd reported by [facility]. ID Date Data Source [id number] 09/13/2020 03:48:00 PM EDT [facility]. Counselor Progress NotePatient NotePatie nt chose to leave Inpatient Detox Treatment at [facility] medical advice today. Patient was provided with contactinformation for aftercare treatment options, list of current local self-help meetings, community resources sheet, as well as contact informationfor the [facility] Emotional SupportLine available 11/10. Staff spoke with patient regarding the benefits ofcompleting treatment and risks of leaving prior to recommended discharge.Patient confirmed understanding, noted having no questions or concernsand reported feeling safe at time of discharge, denying suicidal andhomicidal ideation. Nursing Automation Qa Lead and Hospitalist were notified ofAMA. At the time of discharge, the patient received all of theirbelongings. Patient was picked up to be driven home by her boyfriend.Patient stated the reason for leaving AMA was she needed to go home anddeal with matters at home with her daughter and she needs to be at homein her own bed.Dictated on 09/13/201547 by Shelby CurtisTranscribed on 09/13/20 154 by Shelby CurtisSign by Shelby Curtis on 09/13/20 1558Sign by: Shelby Curtis Name Value Range Interpretation Code Description Data Nataly rce(s) Supporting Document(s) ID Date Data Source [id number] 09/13/2020 03:13:00 PM EDT [facility]. Counselor Progress NotePatient NoteCOUNS SHELBY MEDEROS, MS, CASAC-T, COMPLETED THE SAFE-T ASSESSMENTWITH THE PATIENT (SEE IN CHART).Dictated on 09/13/201512 by Shelby CurtisTranscribed on 09/13/201512 by Shelby CurtisSign by Shelby Curtis on 09/13/201513Sign by: Shelby Curtis Name Value Range Interpretation Code Description Data Nataly rce(s) Supporting Document(s) ID Date Data Source [id number] 09/12/2020 02:00:00 PM [facility]T [facility] Name Value Range Interpretation Code Description Data Nataly rce(s) Supporting Document(s) SARS-CoV-2 (COVID-19) RNA [Presence] in Respiratory specimen by SELMA with probe detection Negative; No COVID-2 RNA detected by PCR. [facility] This lab was ordered by [facility] and reported by . ID Date Data Source [id number] 03/27/2020 01:04:00 PM [facility] spital Procedure Performed By: [facility] [address] [place] [address] Director: Latanya Zamarripa MD Mixed huang: Mixed huang, probable contamination. Name Value Range Interpretation Code Description Data Nataly rce(s) Supporting Document(s) ID Date Data Source [id number] 04/29/2020 01:30:00 PM [facility] Name Value Range Interpretation Code Description Data Nataly rce(s) Supporting Document(s) Vitamin B12 result 541 Normal (applies to non-numer ic results) [facility] SEE SCANNED REPORT ID Date Data Source [id number] 04/01/2020 10:39:00 PM EST [facility] Name Value Range Interpretation Code Description Data Nataly rce(s) Supporting Document(s) Vitamin D 1,25 result 60 pg/mL 18-78 Normal (applies to non-nu meric results) [facility] ADDITIONAL INFORMATIO N This test was developed and its performance characteristics determined by [facility] in a manner consistent with CLIA requirements. This test has not been cleared or approved by the U.S. Food and Drug Administration. Test Performed by: [facility] [address] [place] [address] Airport Attendant: Yves Enciso M.D. Ph.D.; CLIA# [id number] ID Date Data Source [id number] 03/26/2020 07:08:00 PM [facility] Value Range Interpretation Code Description Data Nataly rce(s) Supporting Document(s) Iron Level FE result 226 ug/dL 37-170 [facility] Test Performed By: [facility] [address] [place] [address] Director: Malaika Zamarripa MD ID Date Data Source [id number] 03/26/2020 07:08:00 PM [facility] Value Range Interpretation Code Description Data Nataly rce(s) Supporting Document(s) Ferritin result 138 ng/mL 6.2-137.0 [facility] pital Test Performed By: [facility] [address] [place] [address] Director: Malaika Zamarripa MD ID Date Data Source [id number] 03/26/2020 06:38:00 PM EST [facility] Value Range Interpretation Code Description Data Nataly rce(s) Supporting Document(s) Ferritin 138 ng/mL 6.2-137.0 Above high normal [facility] Test Performed By: [facility] [address] [place] [address] Director: Malaika Zamarripa MD ID Date Data Source [id number] 03/26/2020 06:38:00 PM EST [facility] Name Value Range Interpretation Code Description Data Nataly rce(s) Supporting Document(s) Iron FE Level 226 ug/dL 37-170 Above high normal [facility] Test Performed By: [facility] [address] [place] [address] Director: Malaika Zamarripa MD ID Date Data Source [id number] 03/26/2020 06:38:00 PM EST [facility] Value Range Interpretation Code Description Data Nataly rce(s) Supporting Document(s) Vitamin B12 541 pg/mL 193-986 Normal (applies to non-numeric resu lts) [facility] Test Performed By: [facility] [address] [place] [address] Director: Malaika Zamarripa MD ID Date Data Source [id number] 03/26/2020 05:53:00 AM [facility] Value Range Interpretation Code Description Data Nataly rce(s) Supporting Document(s) Bilirubin,Direct 0.05-0.20 Above high normal [facility] ID Date Data Source [id number] 03/26/2020 05:54:00 AM [facility] Name Value Range Interpretation Code Description Data Nataly rce(s) Supporting Document(s) Thyroid Stimulate Hormone TSH 0.358-3.74 Above high normal [facility] ID Date Data Source [id number] 03/26/2020 05:53:00 AM [facility] Name Value Range Interpretation Code Description Data Nataly rce(s) Supporting Document(s) Phosphorus 2.5-4.9 Normal (applies to non-numeric resul ts) [facility] ID Date Data Source [id number] 03/26/2020 05:53:00 AM [facility] Name Value Range Interpretation Code Description Data Nataly rce(s) Supporting Document(s) Sodium 135 mmol/L 136-145 Below low normal [facility] ospital Potassium 3.5-5.1 Normal (applies to non-numeric resul ts) [facility] Chloride 95 mmol/L 98-107 Below low normal [facility] spital Carbon Dioxide CO2 21-32 Normal (applies to non-numer ic results) [facility] Anion Gap 5.0-16.0 Normal (applies to non-numeric resul ts) [facility] BUN 5 mg/dL 7-18 Below low normal [facility] spital Creatinine,Serum 0.7-1.2 Normal (applies to non-numeric results) [facility] GFR >60 Normal (applies to non-numeric results) [facility] Glucose Level 90 mg/dL 60-99 Normal (applies to non-numeric re sults) [facility] Reference range is only applicable when patient is fasting Note the following drug interference: Sulfasalazine Sulfapyridine Can see falsely depressed Can see falsely elevated result with up to 17% results with up to 11% decrease in measurement increase in measurement Recommend patients be collected for this test prior to administration of either drug. Calcium 8.5-10.1 Normal (applies to non-numeric resul ts) [facility] Bilirubin,Total 0.1-1.9 Normal (applies to non-numeric results) [facility] SGOT(AST) 64 U/L 15-37 Above high normal [facility] ospital Note the following drug interference: Sulfasalazine Sulfapyridine Can see falsely depressed Can see falsely elevated result with up to 10% results with up to 10% decrease in measurement increase in measurement Recommend patients be collected for this test prior to administration of either drug. SGPT(ALT) 105 U/L 12-78 Above high normal [facility] ospital Note the following drug interference: Sulfasalazine Sulfapyridine Can see falsely depressed Can see falsely elevated result with up to 29% results with up to 10% decrease in measurement increase in measurement Recommend patients be collected for this test prior to administration of either drug. Alkaline Phosphatase 106 U/L 38-126 Normal (applies to non-num sue results) [facility] can increase Alkaline Phosp le vels up to 2 times the normal adult value. Normal values for children and adolescents are 2 to 3 times the normal adult value. Total Protein 6.0-8.2 Normal (applies to non-numeric re sults) [facility] Albumin Level 3.4-5.0 Normal (applies to non-numeric re sults) [facility] ID Date Data Source [id number] 03/26/2020 05:53:00 AM EST [facility] Name Value Range Interpretation Code Description Data Nataly rce(s) Supporting Document(s) Magnesium 1.8-2.4 Normal (applies to non-numeric resul ts) [facility] ID Date Data Source [id number] 03/26/2020 02:50:00 PM EST [facility] Name Value Range Interpretation Code Description Data Nataly rce(s) Supporting Document(s) CPK result 237 U/L 26-192 [facility] Test Performed By: [facility] [address] [place] [address] Director: Malaika Zamarripa MD ID Date Data Source [id number] 03/26/2020 02:50:00 PM [facility] Name Value Range Interpretation Code Description Data Nataly rce(s) Supporting Document(s) Syphilis Serology result Nonreactive Normal (applies to non-numeric results) [facility] Test Performed By: [facility] [address] [place] [address] Director: Malaika Zamarripa MD ID Date Data Source [id number] 03/26/2020 01:59:00 PM EST [facility] Value Range Interpretation Code Description Data Nataly rce(s) Supporting Document(s) Syphilis Serology Nonreactive Normal (applies to non-numer ic results) [facility] Test Performed By: [facility] [address] [place] [address] Director: Malaika Zamarripa MD ID Date Data Source [id number] 03/26/2020 01:56:00 PM EST [facility] Name Value Range Interpretation Code Description Data Nataly rce(s) Supporting Document(s) CPK 237 U/L 26-192 Above high normal [facility] Test Performed By: [facility] [address] [place] [address] Director: Malaika Zamarripa MD ID Date Data Source [id number] 03/26/2020 11:41:00 AM [facility] Name Value Range Interpretation Code Description Data Nataly rce(s) Supporting Document(s) Reticulocyte Count 0.50-1.81 Normal (applies to non-numer ic results) [facility] ID Date Data Source [id number] 03/26/2020 05:28:00 AM [facility] Name Value Range Interpretation Code Description Data Nataly rce(s) Supporting Document(s) Ethanol Less than 10.0 Normal (applies to non-numeric r esults) [facility] ID Date Data Source [id number] 03/26/2020 05:02:00 AM [facility] Name Value Range Interpretation Code Description Data Nataly rce(s) Supporting Document(s) White Blood Count 3.5-10.5 Normal (applies to non-numeri c results) [facility] Red Blood Count 3.90-5.00 Below low normal [facility] Hemoglobin 12.0-15.5 Below low normal [facility]ital Hematocrit 34.9-44.5 Below low normal [facility] Mean Corpuscular Volume 81.2-95.1 Normal (applies to non- numeric results) [facility] Mean Corpuscular Hgb 25.6-32.2 Normal (applies to non-num sue results) [facility] Mean Corpuscular Hgb Conc 32.0-36.0 Normal (applies to no n-numeric results) [facility] Red Cell Distribution Width 11.9-15.5 Above high normal [facility] Platelet Count 149 x10 3/uL 150-450 Below low normal [facility] Mean Platelet Volume 9.4-12.4 Below low normal [facility] Neutrophils% (Auto) 31.0-71.0 Normal (applies to non-nume gucci results) [facility] Lymphocytes% (Auto) 20.0-55.0 Normal (applies to non-nume gucci results) [facility] Monocytes% (Auto) 4.0-12.0 Normal (applies to non-numeri c results) [facility] Eosinophils% (Auto) 1.0-8.0 Normal (applies to non-nume gucci results) [facility] Basophils% (Auto) 0.0-2.0 Normal (applies to non-numeri c results) [facility] Immature Granulocytes% (Auto) 0.0-2.0 Normal (racquel lies to non-numeric results) [facility] Neutrophils# (Auto) 1.50-6.20 Normal (applies to non-nume gucci results) [facility] Lymphocytes# (Auto) 1.20-4.[address] [facility] Monocytes# (Auto) 0.00-0.90 Normal (applies to non-numeri c results) [facility] Eosinophils# (Auto) 0.00-0.50 Normal (applies to non-nume gucci results) [facility] Basophils# (Auto) 0.00-0.20 Normal (applies to non-numeri c results) [facility] Immature Granulocytes# (Auto) 0.00-7.00 No rmal (applies to non-numeric results) [facility] ID Date Data Source [id number] 04/02/2020 12:13:00 AM EST [facility] Name Value Range Interpretation Code Description Data Nataly rce(s) Supporting Document(s) Vitamin D 1,25 result 60 pg/mL 18-78 Normal (applies to non-nu meric results) [facility] ADDITIONAL INFORMATIO N This test was developed and its performance characteristics determined by [facility] in a manner consistent with CLIA requirements. This test has not been cleared or approved by the U.S. Food and Drug Administration. Test Performed by: [facility] [place] [address] Airport Attendant: Yves Enciso M.D. Ph.D.; CLIA# [id number] ID Date Data Source [id number] 03/28/2020 05:44:00 PM [facility] Name Value Range Interpretation Code Description Data Nataly rce(s) Supporting Document(s) Chlamydia,Urine Negative Normal (applies to non-numeric results) [facility] Test Performed By: [facility] [address] [place] [address] Director: Malaika Zamarripa MD . GC Urine Negative Normal (applies to non-numeric resul ts) [facility] Test Performed By: [facility] [address] [place] [address] Director: Malaika Zamarripa MD . Methodology: Second generation nucleic acid amplification. ID Date Data Source [id number] 03/27/2020 11:31:00 AM [facility] Procedure Performed By: [facility] [address] [place] [address] Director: Latanya Zamarripa MD Name Value Range Interpretation Code Description Data Nataly rce(s) Supporting Document(s) Urine Culture Normal (applies to non-numeric re sults) [facility] ID Date Data Source [id number] 03/26/2020 06:59:00 AM [facility] Collected By: Nurse's Aide Initials: HR Collected By: Nurse's Aide Initials: HR Name Value Range Interpretation Code [facility] Document(s) RBC,Urine None Seen [facility] WBC,Urine None Seen [facility] Casts,Urine None Seen Normal (applies to non-numeric resu lts) [facility] Epithelial Cells,Urine None - [facility] Squamous Cells,Urine None Seen [facility] Bacteria,Urine None Seen [facility] Mucus,Urine None Seen [facility] ID Date Data Source [id number] 03/26/2020 06:59:00 AM [facility] Collected By: Nurse's Aide Initials: HR Collected By: Nurse's Aide Initials: HR Name Value Range Interpretation Code Description Data [facility] rce(s) Supporting Document(s) Color,Urine Colorl-Dk Y Normal (applies to non-numeric res ults) [facility] Clarity,Urine Clear Normal (applies to non-numeric re sults) [facility] Specific [place],Urine 1.005-1.030 Normal (applies to non- numeric results) [facility] pH,Urine 5.0-8.0 Normal (applies to non-numeric resul ts) [facility] Protein,Urine Negative [facility] Glucose,Urine Negative Normal (applies to non-numeric re sults) [facility] Ketones,Urine Negative Normal (applies to non-numeric re sults) [facility] Blood,Urine Negative Normal (applies to non-numeric resu lts) [facility] Bilirubin,Urine Negative Normal (applies to non-numeric results) [facility] Urobilinogen,Urine 0.2-1.0 Normal (applies to non-numer ic results) [facility] Leukocyte Esterase,Urine Negative [facility] Nitrite,Urine Negative Normal (applies to non-numeric re sults) [facility] ID Date Data Source [id number] 03/26/2020 06:30:00 AM EST [facility] Name Value Range Interpretation Code Description Data [facility] rce(s) Supporting Document(s) UDS Benzodiazepines Screen Negative [facility] UDS Cocaine Screen Negative Normal (applies to non-numer ic results) [facility] UDS Ampetamine Screen Negative Normal (applies to non-nu meric results) [facility] UDS Cannabinoids Screen Negative Normal (applies to non- numeric results) [facility] UDS Opiates Screen Negative Normal (applies to non-numer ic results) [facility] UDS Barbiturates Screen Negative Normal (applies to non- numeric results) [facility] Threshold Levels Benzodiazepine 200 ng/mL Cocaine 300 ng/mL Amphetamines 1000 ng/mL Cannabinoids (THC) 50 ng/mL Opiates 300 ng/mL Barbiturates 200 ng/mL All positive findings are presumptive and unconfirmed. Confirmation of positive results are performed only at request of provider. Unconfirmed results must not be used for non-medical purposes (i.e. preemployment and legal purposes) ID Date Data Source [id number] 03/28/2020 06:20:00 PM [facility] Name Value Range Interpretation Code Description Data Nataly rce(s) Supporting Document(s) Chlamydia,Urine result Negative Normal (applies to non-n umeric results) [facility] Test Performed By: [facility] [address] [place] [address] Director: Malaika Zamarripa MD . GC Urine result Negative Normal (applies to non-numeric results) [facility] Test Performed By: [facility] [address] [place] [address] Director: Malaika Zamarripa MD . Methodology: Second generation nucleic acid amplification. ID Date Data Source [id number] 03/26/2020 01:10:00 AM EST [facility] Name Value Range Interpretation Code Description Data Nataly rce(s) Supporting Document(s) SARS coronavirus 2 RNA [Presence] in Res piratory specimen by SELMA with probe detection NEGATIVE [facility] This lab was ordered by [facility] a nd reported by [facility]. ID Date Data Source [id number] 03/05/2020 03:31:00 PM EST [facility] Name Value Range Interpretation Code Description Data Nataly rce(s) Supporting Document(s) SARS coronavirus 2 RNA [Presence] in Res piratory specimen by SELMA with probe detection [facility] This lab was ordered by [facility] a nd reported by [facility]. ID Date Data Source [id number] 02/28/2020 07:24:00 AM EST [facility] Name Value Range Interpretation Code Description Data Nataly rce(s) Supporting Document(s) SARS coronavirus 2 RNA [Presence] in Res piratory specimen by SELMA with probe detection [facility] This lab was ordered by [facility] a nd reported by [facility]. ID Date Data Source [id number] 12/06/2019 11:03:00 AM EDT [facility] Name Value Range Interpretation Code Description Data Nataly rce(s) Supporting Document(s) Iron FE Level 45 ug/dL 37-170 Normal (applies to non-numeric re sults) [facility] Total Iron Binding Capacity 294 ug/dL 265-497 Norm al (applies to non-numeric results) [facility] %Iron Saturation 12.0-55.0 Normal (applies to non-numeric results) [facility] ID Date Data Source [id number] 12/06/2019 11:03:00 AM EDT [facility] Name Value Range Interpretation Code Description Data Nataly rce(s) Supporting Document(s) Vitamin B12 628 pg/mL 193-986 Normal (applies to non-numeric resu lts) [facility] ID Date Data Source [id number] 12/03/2019 10:39:00 AM EDT [facility] Name Value Range Interpretation Code Description Data Nataly rce(s) Supporting Document(s) Sodium 145 mmol/L 137-145 Normal (applies to non-numeric resul ts) [facility] Potassium 3.5-5.1 Normal (applies to non-numeric resul ts) [facility] Chloride 114 mmol/L 98-112 Above high normal [facility] Carbon Dioxide CO2 22.0-33.0 Normal (applies to non-numer ic results) [facility] Anion Gap 4.0-11.0 Normal (applies to non-numeric resul ts) [facility] BUN 6 mg/dL 7-17 Below low normal [facility] Creatinine 0.70-1.20 Below low normal [facility] GFR >60 Normal (applies to non-numeric results) [facility] Result based on MDRD formula. Glucose Level 67 mg/dL 74-99 Below low normal [facility] The reference range is only applicable w hen fasting. Calcium-Uncorrected 8.4-10.2 Normal (applies to non-nume gucci results) [facility] Corrected Calcium 8.4-10.2 Normal (applies to non-numeri c results) [facility] Bilirubin,Total 0.2-1.3 Normal (applies to non-numeric results) [facility] SGOT(AST) 34 U/L 14-36 Normal (applies to non-numeric resul ts) [facility] SGPT(ALT) 55 U/L 9-52 Above high normal [facility] Alkaline Phosphatase 91 U/L 38-126 Normal (applies to non-num sue results) [facility] can increase Alkaline Phosp le vels up to 2 times the normal adult value. Normal values for children and adolescents are 2 to 3 times the normal adult value. Total Protein 6.3-8.2 Normal (applies to non-numeric re sults) [facility] Albumin 3.5-5.0 Below low normal [facility] ID Date Data Source [id number] 11/25/2019 04:57:00 PM EDT [facility] Name Value Range Interpretation Code Description Data Nataly rce(s) Supporting Document(s) Respiratory specimen severe acute respir atory syndrome coronavirus 2 (SARS-CoV-2) RNA [facility] ital This lab was ordered by [facility] estela and reported by [facility]. ID Date Data Source [id number] 11/25/2019 04:57:00 PM EDT [facility] Name Value Range Interpretation Code Description Data Nataly rce(s) Supporting Document(s) SARS-CoV-2 RNA Negative Normal (applies to non-numeric r esults) [facility] Negative results should be treated as pr esumptive and, if inconsistent with clinical signs and symptoms or necessary for patient management, should be tested with different authorized or cleared molecular tests. Negative results do not preclude SARS-CoV-2 infection and should not be used as the sole basis for patient management decisions. Negative results should be considered in the context of a patients recent exposures, history and the presence of clinical signs and symptoms consistent with COVID-19. This test has not been FDA cleared or approved; this test has been authorized by FDA under an Emergency Use Authorization for use by laboratories certified under the Clinical Laboratory Improvement Amendments of 1988 (CLIA), 42 U.S.C. 263a, to perform moderate complexity/high complexity tests and at the Point of Care (POC), i.e., in patient care settings operating under a CLIA Certificate of Waiver, Certificate of Compliance, or Certificate of Accreditation. Factsheets for healthcare providers: https://www.fda.gov/media/479180/download Factsheets for patients: https://www.fda.gov/media/434286/download THIS IS A STATE REPORTABLE COMMUNICABLE DISEASE. Manual entry verified by Bonny Daley 11/25/19 165 ID Date Data Source [id number] 11/25/2019 10:30:00 AM EDT [facility] Name Value Range Interpretation Code Description Data Nataly rce(s) Supporting Document(s) Hep C Ab-T Test Nonreactive Normal (applies to non-numeric results) [facility] ID Date Data Source [id number] 11/25/2019 10:31:00 AM EDT [facility] Name Value Range Interpretation Code Description Data Nataly rce(s) Supporting Document(s) Hep Bs Ag Result T-Test Nonreactive Normal (applies to non -numeric results) [facility] ID Date Data Source [id number] 11/25/2019 10:31:00 AM EDT [facility] Name Value Range Interpretation Code Description Data Nataly rce(s) Supporting Document(s) Syphilis Serology Nonreactive Normal (applies to non-numer ic results) [facility] ID Date Data Source [id number] 11/25/2019 10:31:00 AM EDT [facility] Name Value Range Interpretation Code Description Data Nataly rce(s) Supporting Document(s) Vitamin D,Total (25OH) 30.0-100.0 Below low normal [facility] Reference Range: <10 ng/mL: Deficien t 10-30 ng/mL: Insufficient 30-100 ng/mL: Sufficient >100 ng/mL: Toxicity possible ID Date Data Source [id number] 11/25/2019 10:31:00 AM EDT [facility] Name Value Range Interpretation Code Description Data Nataly rce(s) Supporting Document(s) HAVM Nonreactive Normal (applies to non-numeric resu lts) [facility] ID Date Data Source [id number] 11/25/2019 09:47:00 AM EDT [facility] Name Value Range Interpretation Code Description Data Nataly rce(s) Supporting Document(s) Sodium 142 mmol/L 137-145 Normal (applies to non-numeric resul ts) [facility] Potassium 3.5-5.1 Normal (applies to non-numeric resul ts) [facility] Chloride 109 mmol/L 98-112 Normal (applies to non-numeric resul ts) [facility] Carbon Dioxide CO2 22.0-33.0 Normal (applies to non-numer ic results) [facility] Anion Gap 4.0-11.0 Normal (applies to non-numeric resul ts) [facility] BUN 5 mg/dL 7-17 Below low normal [facility] Creatinine 0.70-1.20 Below low normal [facility] GFR >60 Normal (applies to non-numeric results) [facility] Result based on MDRD formula. Glucose Level 130 mg/dL 74-99 Above high normal [facility] The reference range is only applicable w hen fasting. Calcium-Uncorrected 8.4-10.2 Normal (applies to non-nume gucci results) [facility] Corrected Calcium 8.4-10.2 Normal (applies to non-numeri c results) [facility] Bilirubin,Total 0.2-1.3 Normal (applies to non-numeric results) [facility] Bilirubin,Direct 0.0-0.3 Normal (applies to non-numeric results) [facility] SGOT(AST) 61 U/L 14-36 Above high normal [facility] SGPT(ALT) 71 U/L 9-52 Above high normal [facility] Alkaline Phosphatase 165 U/L 38-126 Above high normal [facility] can increase Alkaline Phosp le vels up to 2 times the normal adult value. Normal values for children and adolescents are 2 to 3 times the normal adult value. CPK 47 U/L 26-192 Normal (applies to non-numeric resul ts) [facility] Total Protein 6.3-8.2 Normal (applies to non-numeric re sults) [facility] Albumin 3.5-5.0 Below low normal [facility] Thyroid Stimulate Hormone TSH 0.358-3.740 No rmal (applies to non-numeric results) [facility] ID Date Data Source [id number] 11/25/2019 09:47:00 AM EDT [facility] Name Value Range Interpretation Code Description Data Nataly rce(s) Supporting Document(s) Magnesium 1.80-2.40 Normal (applies to non-numeric resul ts) [facility] ID Date Data Source [id number] 11/25/2019 09:47:00 AM EDT [facility] Name Value Range Interpretation Code Description Data Nataly rce(s) Supporting Document(s) C-Reactive Protein,Wide Range <3.00 Normal (applies t o non-numeric results) [facility] ID Date Data Source [id number] 11/25/2019 09:20:00 AM EDT [facility] Name Value Range Interpretation Code Description Data Nataly rce(s) Supporting Document(s) White Blood Count 4.8-10.8 Normal (applies to non-numeri c results) [facility] Red Blood Count 3.68-5.22 Normal (applies to non-numeric results) [facility] Hemoglobin 11.2-15.7 Normal (applies to non-numeric resul ts) [facility] Hematocrit 34.1-44.9 Normal (applies to non-numeric resul ts) [facility] Mean Corpuscular Volume 81-99 Normal (applies to non- numeric results) [facility] Mean Corpuscular Hemoglobin 27.0-33.0 Normal (appli es to non-numeric results) [facility] Mean Corpuscular HGB Conc 32.0-36.0 Normal (applies to no n-numeric results) [facility] Red Cell Distribution Width 11.5-14.5 Above high normal [facility] Platelet Count 250 X10 3/uL 130-450 Normal (applies to non-numeric results) [facility] Mean Platelet Volume 9.5-12.7 Below low normal [facility] Imm Grans% (AUTO) 1 % 0-2 Normal (applies to non-numeri c results) [facility] Neutrophils % (AUTO) 56 % 40-75 Normal (applies to non-num use results) [facility] Lymphocytes % (AUTO) 31 % 21-46 Normal (applies to non-num sue results) [facility] Monocytes % (AUTO) 11 % 5-12 Normal (applies to non-numer ic results) [facility] Eosinophils % (AUTO) 1 % 1-5 Normal (applies to non-num sue results) [facility] Basophils % (AUTO) 1 % 0-1 Normal (applies to non-numer ic results) [facility] Imm Grans# (AUTO) 0.0-0.5 Normal (applies to non-numeri c results) [facility] Neutrophils # (AUTO) 1.5-8.1 Normal (applies to non-num sue results) [facility] Lymphocytes # (AUTO) 1.0-3.1 Normal (applies to non-num sue results) [facility] Monocytes # (AUTO) 0.2-1.3 Normal (applies to non-numer ic results) [facility] Eosinophils# (AUTO) 0.0-0.5 Normal (applies to non-nume gucci results) [facility] Basophils # (AUTO) 0.0-0.1 Normal (applies to non-numer ic results) [facility] ID Date Data Source [id number] 11/24/2019 01:26:00 PM EDT [facility] Name Value Range Interpretation Code Description Data Nataly rce(s) Supporting Document(s) Opiate Screen,Urine Negative Normal (applies to non-nume gucci results) [facility] Amphetamine Screen,Urine Negative Normal (applies to non -numeric results) [facility] Benzodiazepines Scrn,Ur result Negative [facility] Cocaine Screen,Urine Negative Normal (applies to non-num sue results) [facility] Methadone Screen,Urine Negative Normal (applies to non-n umeric results) [facility] Cannabinoid Screen, Ur Negative Normal (applies to non-n umeric results) [facility] Therapeutic Drug Ranges for Emergency an d Rehabilitation Threshold Levels (ng/mL) Cocaine 300 Opiates 300 Cannabinoids 50 Barbiturates 200 Benzodiazepine 200 Methadone 300 Amphetamines 1000 All positive findings are presumptive and unconfirmed. Confirmation of positive results are performed only at request of provider. Unconfirmed results must not be used for non-medical purposes (i.e. pre-employment and legal purposes) ID Date Data Source [id number] 11/24/2019 01:12:00 PM EDT [facility] Name Value Range Interpretation Code Description Data Nataly rce(s) Supporting Document(s) Color,Urine Yellow [facility] pital Clarity,Urine Clear Normal (applies to non-numeric re sults) [facility] Specific [place],Urine 1.001-1.030 Normal (applies to non- numeric results) [facility] PH,Urine 5.0-8.0 Normal (applies to non-numeric resul ts) [facility] Protein,Urine Negative Normal (applies to non-numeric re sults) [facility] Glucose,Urine (UA) Negative Normal (applies to non-numer ic results) [facility] Ketones,Urine Negative Normal (applies to non-numeric re sults) [facility] Blood,Urine Negative Normal (applies to non-numeric resu lts) [facility] Bilirubin,Urine Negative Normal (applies to non-numeric results) [facility] Urobilinogen,Urine Norm 0.2-1 Normal (applies to non-numer ic results) [facility] Leukocyte Esterase,Urine Negative [facility] Nitrite,Urine Negative Normal (applies to non-numeric re sults) [facility] ID Date Data Source [id number] 11/24/2019 01:12:00 PM EDT [facility] Name Value Range Interpretation Code Description Data Nataly rce(s) Supporting Document(s) RBC,Auto Urine 0-2 Normal (applies to non-numeric r esults) [facility] WBC Urine Auto 0-10 Normal (applies to non-numeric r esults) [facility] Casts,Hyaline,Urine Auto 0-2 Normal (applies to non -numeric results) [facility] Bacteria Urine Auto None Seen Normal (applies to non-nume gucci results) [facility] Epithelial Cell Ur Auto None-Few Normal (applies to non- numeric results) [facility] ID Date Data Source [id number] 11/24/2019 01:12:00 PM EDT [facility] Name Value Range Interpretation Code Description Data Nataly rce(s) Supporting Document(s) Urine HCG Negative Normal (applies to non-numeric resul ts) [facility] ID Date Data Source [id number] 11/23/2019 09:53:00 AM EDT [facility] Name Value Range Interpretation Code Description Data Nataly rce(s) Supporting Document(s) Respiratory specimen severe acute respir atory syndrome coronavirus 2 (SARS-CoV-2) RNA [facility] ital This lab was ordered by [facility] estela and reported by [facility]. ID Date Data Source [id number] 11/23/2019 09:53:00 AM EDT [facility] Name Value Range Interpretation Code Description Data Nataly rce(s) Supporting Document(s) SARS-CoV-2 RNA Negative Normal (applies to non-numeric r esults) [facility] Negative results should be treated as pr esumptive and, if inconsistent with clinical signs and symptoms or necessary for patient management, should be tested with different authorized or cleared molecular tests. Negative results do not preclude SARS-CoV-2 infection and should not be used as the sole basis for patient management decisions. Negative results should be considered in the context of a patients recent exposures, history and the presence of clinical signs and symptoms consistent with COVID-19. This test has not been FDA cleared or approved; this test has been authorized by FDA under an Emergency Use Authorization for use by laboratories certified under the Clinical Laboratory Improvement Amendments of 1988 (CLIA), 42 U.S.C. 263a, to perform moderate complexity/high complexity tests and at the Point of Care (POC), i.e., in patient care settings operating under a CLIA Certificate of Waiver, Certificate of Compliance, or Certificate of Accreditation. Factsheets for healthcare providers: https://www.fda.gov/media/406032/download Factsheets for patients: https://www.fda.gov/media/492853/download THIS IS A STATE REPORTABLE COMMUNICABLE DISEASE. Manual entry verified by Gabriel Cabello 11/23/19 0952 ID Date Data Source [id number] 11/23/2019 09:47:00 AM EDT [facility] Name Value Range Interpretation Code Description Data Nataly rce(s) Supporting Document(s) Sodium 141 mmol/L 137-145 Normal (applies to non-numeric resul ts) [facility] Potassium 3.5-5.1 Normal (applies to non-numeric resul ts) [facility] Chloride 110 mmol/L 98-112 Normal (applies to non-numeric resul ts) [facility] Carbon Dioxide CO2 22.0-33.0 Normal (applies to non-numer ic results) [facility] Anion Gap 4.0-11.0 Below low normal [facility] BUN 3 mg/dL 7-17 Below low normal [facility] Creatinine 0.70-1.20 Below low normal [facility] GFR >60 Normal (applies to non-numeric results) [facility] Result based on MDRD formula. Glucose Level 91 mg/dL 74-99 Normal (applies to non-numeric re sults) [facility] The reference range is only applicable w hen fasting. Calcium-Uncorrected 8.4-10.2 Normal (applies to non-nume gucci results) [facility] Corrected Calcium 8.4-10.2 Normal (applies to non-numeri c results) [facility] Bilirubin,Total 0.2-1.3 Normal (applies to non-numeric results) [facility] SGOT(AST) 75 U/L 14-36 Above high normal [facility] SGPT(ALT) 68 U/L 9-52 Above high normal [facility] Alkaline Phosphatase 181 U/L 38-126 Above high normal [facility] can increase Alkaline Phosp le vels up to 2 times the normal adult value. Normal values for children and adolescents are 2 to 3 times the normal adult value. Total Protein 6.3-8.2 Normal (applies to non-numeric re sults) [facility] Albumin 3.5-5.0 Below low normal [facility] ID Date Data Source [id number] 11/23/2019 09:47:00 AM EDT [facility] Name Value Range Interpretation Code Description Data Nataly rce(s) Supporting Document(s) C-Reactive Protein,Wide Range <3.00 Normal (applies t o non-numeric results) [facility] ID Date Data Source [id number] 11/23/2019 09:34:00 AM EDT [facility] Name Value Range Interpretation Code Description Data Nataly rce(s) Supporting Document(s) White Blood Count 4.8-10.8 Normal (applies to non-numeri c results) [facility] Red Blood Count 3.68-5.22 Normal (applies to non-numeric results) [facility] Hemoglobin 11.2-15.7 Normal (applies to non-numeric resul ts) [facility] Hematocrit 34.1-44.9 Normal (applies to non-numeric resul ts) [facility] Mean Corpuscular Volume 81-99 Normal (applies to non- numeric results) [facility] Mean Corpuscular Hemoglobin 27.0-33.0 Normal (appli es to non-numeric results) [facility] Mean Corpuscular HGB Conc 32.0-36.0 Normal (applies to no n-numeric results) [facility] Red Cell Distribution Width 11.5-14.5 Above high normal [facility] Platelet Count 264 X10 3/uL 130-450 Normal (applies to non-numeric results) [facility] Mean Platelet Volume 9.5-12.7 Normal (applies to non-num sue results) [facility] Imm Grans% (AUTO) 0 % 0-2 Normal (applies to non-numeri c results) [facility] Neutrophils % (AUTO) 33 % 40-75 Below low normal [facility] Lymphocytes % (AUTO) 54 % 21-46 Above high normal [facility] Monocytes % (AUTO) 10 % 5-12 Normal (applies to non-numer ic results) [facility] Eosinophils % (AUTO) 2 % 1-5 Normal (applies to non-num sue results) [facility] Basophils % (AUTO) 1 % 0-1 Normal (applies to non-numer ic results) [facility] Imm Grans# (AUTO) 0.0-0.5 Normal (applies to non-numeri c results) [facility] Neutrophils # (AUTO) 1.5-8.1 Normal (applies to non-num sue results) [facility] Lymphocytes # (AUTO) 1.0-3.1 Normal (applies to non-num sue results) [facility] Monocytes # (AUTO) 0.2-1.3 Normal (applies to non-numer ic results) [facility] Eosinophils# (AUTO) 0.0-0.5 Normal (applies to non-nume gucci results) [facility] Basophils # (AUTO) 0.0-0.1 Normal (applies to non-numer ic results) [facility] ID Date Data Source [id number] 11/22/2019 08:30:00 AM EDT [facility] Name Value Range Interpretation Code Description Data Nataly rce(s) Supporting Document(s) D-Dimer Quant 677 ng/mLFEU <500 PH [facility] ADELA SCHMID read back critical informa tion 11/22/19 0829 LAB.SWEBR Positive for D-Dimer. DVT/PE or DIC may be present. D-Dimer is an exclusionary test and is used in conjunction with a clinical pretest probability (PTP) assessment model to exclude DVT and PE. Consider further diagnostic studies to confirm diagnosis. ID Date Data Source [id number] 11/22/2019 07:58:00 AM EDT [facility] MB if CPK is elevated? N MB if CPK is elevated? N MB if CPK is elevated? N MB if CPK is elevated? N MB if CPK is elevated? N MB if CPK is elevated? N Name Value Range Interpretation Code Description Data Nataly rce(s) Supporting Document(s) Sodium 143 mmol/L 137-145 Normal (applies to non-numeric resul ts) [facility] Potassium 3.5-5.1 Normal (applies to non-numeric resul ts) [facility] Chloride 110 mmol/L 98-112 Normal (applies to non-numeric resul ts) [facility] Carbon Dioxide CO2 22.0-33.0 Normal (applies to non-numer ic results) [facility] Anion Gap 4.0-11.0 Below low normal [facility] BUN 2 mg/dL 7-17 Below low normal [facility] Creatinine 0.70-1.20 Below low normal [facility] GFR >60 Normal (applies to non-numeric results) [facility] Result based on MDRD formula. Glucose Level 93 mg/dL 74-99 Normal (applies to non-numeric re sults) [facility] The reference range is only applicable w hen fasting. Calcium-Uncorrected 8.4-10.2 Below low normal [facility] Corrected Calcium 8.4-10.2 Normal (applies to non-numeri c results) [facility] ID Date Data Source [id number] 11/22/2019 07:58:00 AM EDT [facility] MB if CPK is elevated? N MB if CPK is elevated? N MB if CPK is elevated? N MB if CPK is elevated? N MB if CPK is elevated? N MB if CPK is elevated? N Name Value Range Interpretation Code Description Data Nataly rce(s) Supporting Document(s) Phosphorus 2.5-4.9 Normal (applies to non-numeric resul ts) [facility] ID Date Data Source [id number] 11/22/2019 07:58:00 AM EDT [facility] MB if CPK is elevated? N MB if CPK is elevated? N MB if CPK is elevated? N MB if CPK is elevated? N MB if CPK is elevated? N MB if CPK is elevated? N Name Value Range Interpretation Code Description Data Nataly rce(s) Supporting Document(s) Magnesium 1.80-2.40 Normal (applies to non-numeric resul ts) [facility] ID Date Data Source [id number] 11/22/2019 07:58:00 AM EDT [facility] MB if CPK is elevated? N MB if CPK is elevated? N MB if CPK is elevated? N MB if CPK is elevated? N MB if CPK is elevated? N MB if CPK is elevated? N Name Value Range Interpretation Code Description Data Nataly rce(s) Supporting Document(s) Ferritin 175 ng/mL 6.2-137.[address] [facility] ID Date Data Source [id number] 11/22/2019 07:58:00 AM EDT [facility] MB if CPK is elevated? N MB if CPK is elevated? N MB if CPK is elevated? N MB if CPK is elevated? N MB if CPK is elevated? N MB if CPK is elevated? N Name Value Range Interpretation Code Description Data Nataly rce(s) Supporting Document(s) LDH 188 U/L 84-246 Normal (applies to non-numeric resul ts) [facility] ID Date Data Source [id number] 11/22/2019 07:58:00 AM EDT [facility] MB if CPK is elevated? N MB if CPK is elevated? N MB if CPK is elevated? N MB if CPK is elevated? N MB if CPK is elevated? N MB if CPK is elevated? N Name Value Range Interpretation Code Description Data Nataly rce(s) Supporting Document(s) CPK 71 U/L 26-192 Normal (applies to non-numeric resul ts) [facility] ID Date Data Source [id number] 11/22/2019 07:44:00 AM EDT [facility] Name Value Range Interpretation Code Description Data Nataly rce(s) Supporting Document(s) White Blood Count 4.8-10.8 Below low normal [facility] Red Blood Count 3.68-5.22 Normal (applies to non-numeric results) [facility] Hemoglobin 11.2-15.7 Normal (applies to non-numeric resul ts) [facility] Hematocrit 34.1-44.9 Normal (applies to non-numeric resul ts) [facility] Mean Corpuscular Volume 81-99 Normal (applies to non- numeric results) [facility] Mean Corpuscular Hemoglobin 27.0-33.0 Normal (appli es to non-numeric results) [facility] Mean Corpuscular HGB Conc 32.0-36.0 Normal (applies to no n-numeric results) [facility] Red Cell Distribution Width 11.5-14.5 Normal (appli es to non-numeric results) [facility] Platelet Count 264 X10 3/uL 130-450 Normal (applies to non-numeric results) [facility] Mean Platelet Volume 9.5-12.7 Normal (applies to non-num sue results) [facility] Imm Grans% (AUTO) 0 % 0-2 Normal (applies to non-numeri c results) [facility] Neutrophils % (AUTO) 38 % 40-75 Below low normal [facility] Lymphocytes % (AUTO) 51 % 21-46 Above high normal [facility] Monocytes % (AUTO) 8 % 5-12 Normal (applies to non-numer ic results) [facility] Eosinophils % (AUTO) 2 % 1-5 Normal (applies to non-num sue results) [facility] Basophils % (AUTO) 1 % 0-1 Normal (applies to non-numer ic results) [facility] Imm Grans# (AUTO) 0.0-0.5 Normal (applies to non-numeri c results) [facility] Neutrophils # (AUTO) 1.5-8.1 Normal (applies to non-num sue results) [facility] Lymphocytes # (AUTO) 1.0-3.1 Normal (applies to non-num sue results) [facility] Monocytes # (AUTO) 0.2-1.3 Normal (applies to non-numer ic results) [facility] Eosinophils# (AUTO) 0.0-0.5 Normal (applies to non-nume gucci results) [facility] Basophils # (AUTO) 0.0-0.1 Normal (applies to non-numer ic results) [facility] ID Date Data Source [id number] 11/21/2019 10:48:00 AM EDT [facility] Name Value Range Interpretation Code Description Data Nataly rce(s) Supporting Document(s) Sodium 139 mmol/L 137-145 Normal (applies to non-numeric resul ts) [facility] Potassium 3.5-5.1 Normal (applies to non-numeric resul ts) [facility] Chloride 107 mmol/L 98-112 Normal (applies to non-numeric resul ts) [facility] Carbon Dioxide CO2 22.0-33.0 Normal (applies to non-numer ic results) [facility] Anion Gap 4.0-11.0 Normal (applies to non-numeric resul ts) [facility] BUN 5 mg/dL 7-17 Below low normal [facility] Creatinine 0.70-1.20 Below low normal [facility] GFR >60 Normal (applies to non-numeric results) [facility] Result based on MDRD formula. Glucose Level 105 mg/dL 74-99 Above high normal [facility] The reference range is only applicable w hen fasting. Calcium-Uncorrected 8.4-10.2 Below low normal [facility] Corrected Calcium 8.4-10.2 Normal (applies to non-numeri c results) [facility] Bilirubin,Total 0.2-1.3 Normal (applies to non-numeric results) [facility] SGOT(AST) 97 U/L 14-36 Above high normal [facility] SGPT(ALT) 68 U/L 9-52 Above high normal [facility] Alkaline Phosphatase 229 U/L 38-126 Above high normal [facility] can increase Alkaline Phosp le vels up to 2 times the normal adult value. Normal values for children and adolescents are 2 to 3 times the normal adult value. Total Protein 6.3-8.2 Normal (applies to non-numeric re sults) [facility] Albumin 3.5-5.[address] [facility] ID Date Data Source [id number] 11/21/2019 10:48:00 AM EDT [facility] Name Value Range Interpretation Code Description Data Nataly rce(s) Supporting Document(s) Phosphorus 2.5-4.9 Below low normal [facility] ID Date Data Source [id number] 11/21/2019 10:48:00 AM EDT [facility] Name Value Range Interpretation Code Description Data Nataly rce(s) Supporting Document(s) Magnesium 1.80-2.40 Normal (applies to non-numeric resul ts) [facility] ID Date Data Source [id number] 11/21/2019 10:48:00 AM EDT [facility] Name Value Range Interpretation Code Description Data Nataly rce(s) Supporting Document(s) Ferritin 263 ng/mL 6.2-137.0 Above high normal [facility] ID Date Data Source [id number] 11/21/2019 10:48:00 AM EDT [facility] Name Value Range Interpretation Code Description Data Nataly rce(s) Supporting Document(s) LDH 233 U/L 84-246 Normal (applies to non-numeric resul ts) [facility] ID Date Data Source [id number] 11/21/2019 10:48:00 AM EDT [facility] Name Value Range Interpretation Code Description Data Nataly rce(s) Supporting Document(s) C-Reactive Protein,Wide Range <3.00 Above high normal [facility] ID Date Data Source [id number] 11/21/2019 10:07:00 AM EDT [facility] Name Value Range Interpretation Code Description Data Nataly rce(s) Supporting Document(s) White Blood Count 4.8-10.8 Below low normal [facility] Red Blood Count 3.68-5.22 Normal (applies to non-numeric results) [facility] Hemoglobin 11.2-15.7 Normal (applies to non-numeric resul ts) [facility] Hematocrit 34.1-44.9 Normal (applies to non-numeric resul ts) [facility] Mean Corpuscular Volume 81-99 Normal (applies to non- numeric results) [facility] Mean Corpuscular Hemoglobin 27.0-33.0 Normal (appli es to non-numeric results) [facility] Mean Corpuscular HGB Conc 32.0-36.0 Normal (applies to no n-numeric results) [facility] Red Cell Distribution Width 11.5-14.5 Normal (appli es to non-numeric results) [facility] Platelet Count 276 X10 3/uL 130-450 Normal (applies to non-numeric results) [facility] Mean Platelet Volume 9.5-12.7 Normal (applies to non-num sue results) [facility] Imm Grans% (AUTO) 0 % 0-2 Normal (applies to non-numeri c results) [facility] Neutrophils % (AUTO) 46 % 40-75 Normal (applies to non-num sue results) [facility] Lymphocytes % (AUTO) 43 % 21-46 Normal (applies to non-num sue results) [facility] Monocytes % (AUTO) 8 % 5-12 Normal (applies to non-numer ic results) [facility] Eosinophils % (AUTO) 3 % 1-5 Normal (applies to non-num sue results) [facility] Basophils % (AUTO) 1 % 0-1 Normal (applies to non-numer ic results) [facility] Imm Grans# (AUTO) 0.0-0.5 Normal (applies to non-numeri c results) [facility] Neutrophils # (AUTO) 1.5-8.1 Normal (applies to non-num sue results) [facility] Lymphocytes # (AUTO) 1.0-3.1 Normal (applies to non-num sue results) [facility] Monocytes # (AUTO) 0.2-1.3 Normal (applies to non-numer ic results) [facility] Eosinophils# (AUTO) 0.0-0.5 Normal (applies to non-nume gucci results) [facility] Basophils # (AUTO) 0.0-0.1 Normal (applies to non-numer ic results) [facility] ID Date Data Source [id number] 11/20/2019 07:35:00 PM EDT [facility] Name Value Range Interpretation Code Description Data Nataly rce(s) Supporting Document(s) Ethanol Less than 10.0 Normal (applies to non-numeric r esults) [facility] ID Date Data Source [id number] 11/20/2019 07:11:00 PM [facility] Name Value Range Interpretation Code Description Data Nataly rce(s) Supporting Document(s) UDS Phencyclidine Screen Negative Normal (applies to non -numeric results) [facility] UDS Benzodiazepines Screen Negative [facility] UDS Cocaine Screen Negative Normal (applies to non-numer ic results) [facility] UDS Ampetamine Screen Negative Normal (applies to non-nu meric results) [facility] UDS Cannabinoids Screen Negative Normal (applies to non- numeric results) [facility] UDS Opiates Screen Negative Normal (applies to non-numer ic results) [facility] UDS Barbiturates Screen Negative [facility] UDS Tricyclic Screen Negative Normal (applies to non-num sue results) [facility] Therapeutic Drug Ranges for Emergency Threshold Levels (ng/mL) PCP 25 Benzodiazepine 300 Cocaine 300 Amphetamines 1000 Cannabinoids 50 Opiates 300 Barbiturates 300 Tricyclic(TCA) 1000 Emergency toxicology analytes exceeding the therapeutic threshold levels are positive. Positive findings are unconfirmed. Positive drug levels may be confirmed at the request of the ordering provider. Results are to be used for medical treatment purposes only. ID Date Data Source [id number] 11/20/2019 07:05:00 PM EDT [facility] Name Value Range Interpretation Code Description Data Nataly rce(s) Supporting Document(s) Color,Urine Colorl-Dk Y Normal (applies to non-numeric res ults) [facility] Clarity,Urine Clear Normal (applies to non-numeric re sults) [facility] Specific [place],Urine 1.005-1.030 Normal (applies to non- numeric results) [facility] pH,Urine 5.0-8.0 Normal (applies to non-numeric resul ts) [facility] Protein,Urine Negative Normal (applies to non-numeric re sults) [facility] Glucose,Urine Negative Normal (applies to non-numeric re sults) [facility] Ketones,Urine Negative [facility],Urine Negative Normal (applies to non-numeric resu lts) [facility] Bilirubin,Urine Negative Normal (applies to non-numeric results) [facility] Urobilinogen,Urine 0.2-1.0 Normal (applies to non-numer ic results) [facility] Leukocyte Esterase,Urine Negative Normal (applies to non -numeric results) [facility] Nitrite,Urine Negative Normal (applies to non-numeric re sults) [facility] ID Date Data Source [id number] 11/20/2019 07:05:00 PM EDT [facility] Name Value Range Interpretation Code Description Data Nataly rce(s) Supporting Document(s) HCG,Ur Negative Normal (applies to non-numeric results) [facility] ID Date Data Source [id number] 11/20/2019 07:35:00 PM EDT [facility] Name Value Range Interpretation Code Description Data Nataly rce(s) Supporting Document(s) Sodium 135 mmol/L 136-145 Below low normal [facility] Potassium 3.5-5.1 Normal (applies to non-numeric resul ts) [facility] Chloride 98 mmol/L 98-107 Normal (applies to non-numeric resul ts) [facility] Carbon Dioxide CO2 21-32 Normal (applies to non-numer ic results) [facility] Anion Gap 5.0-16.0 Normal (applies to non-numeric resul ts) [facility] BUN 5 mg/dL 7-18 Below low normal [facility] Creatinine,Serum 0.7-1.2 Below low normal [facility] GFR >60 Normal (applies to non-numeric results) [facility] Glucose Level 72 mg/dL 60-99 Normal (applies to non-numeric re sults) [facility] Reference range is only applicable when patient is fasting Note the following drug interference: Sulfasalazine Sulfapyridine Can see falsely depressed Can see falsely elevated result with up to 17% results with up to 11% decrease in measurement increase in measurement Recommend patients be collected for this test prior to administration of either drug. Calcium 8.5-10.1 Below low normal [facility] Bilirubin,Total 0.1-1.9 Normal (applies to non-numeric results) [facility] SGOT(AST) 91 U/L 15-37 Above high normal [facility] Note the following drug interference: Sulfasalazine Sulfapyridine Can see falsely depressed Can see falsely elevated result with up to 10% results with up to 10% decrease in measurement increase in measurement Recommend patients be collected for this test prior to administration of either drug. SGPT(ALT) 82 U/L 12-78 Above high normal [facility] Note the following drug interference: Sulfasalazine Sulfapyridine Can see falsely depressed Can see falsely elevated result with up to 29% results with up to 10% decrease in measurement increase in measurement Recommend patients be collected for this test prior to administration of either drug. Alkaline Phosphatase 249 U/L 38-126 Above high normal [facility] can increase Alkaline Phosp le vels up to 2 times the normal adult value. Normal values for children and adolescents are 2 to 3 times the normal adult value. Total Protein 6.0-8.2 Normal (applies to non-numeric re sults) [facility] Albumin Level 3.4-5.0 Below low normal [facility] ID Date Data Source [id number] 11/20/2019 07:35:00 PM EDT [facility] Name Value Range Interpretation Code Description Data Nataly rce(s) Supporting Document(s) Troponin I 0.000-0.056 Normal (applies to non-numeric resu lts) [facility] ID Date Data Source [id number] 11/21/2019 09:50:00 AM [facility] Imaging Services Department Imaging Report [address] [place] [address] %(RAD)RES..[email or web address].filter("line") Name: TAI ARAYA : 1985 Age/Sex: 33F Ordering Provider: JUDITH Foster Med Rec #: [id number] Reg Status: [facility] Room #: Date of Service: 11/20/19 Report Number: [id number] cc:PCP None Send Report To: [id number] XRP/XR Chest Xray Portable Reason for exam: alcohol withdrawal FINDINGS: The cardiac and mediastinal silhouettes appear normal and the lungs are clear. The bones and soft tissues are normal. The upper abdomen is unremarkable. IMPRESSION: No acute disease identifiable. 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 ID Date Data Source [id number] 11/20/2019 05:57:00 PM EDT [facility] First test? NOEmployed in healthcare? NOSymptomatic per CDC? YESHospitalized? YESICU? NOResident in congregated care? ex usp, [facility] NO? NO Name Value Range Interpretation Code Description Data Nataly rce(s) Supporting Document(s) SARS-CoV-2 Not Detect [facility] Positive for detection of SARS-CoV-2. Po sitive results are indicative of active infection with SARS-CoV-2 but do not rule out bacterial infection or co- infection with other viruses. Testing was performed using the KS12e real-time nested multiplexed PCR Respiratory Panel 2.1 This test has not been FDA cleared or approved. This test has been authorized by FDA under an (Emergency Use Authorization) EUA for use by authorized laboratories. This test is only authorized for the duration of the declaration that circumstances exist justifying the authorization of emergency use of in vitro diagnostic tests for detection and/or diagnosis of SARS-CoV-2. Fact sheets for this EUA assay can be found at the following links: General: https://www.cdc.gov/COVID19 Healthcare Professionals: https://www.cdc.gov /coronavirus/2019-nCoV/guidance-hcp.html THIS IS A STATE REPORTABLE COMMUNICABLE DISEASE. Results called 11/20/19 175Khris,PRATIMA CARTWRIGHT KYLIE read back information to GIANNI Methodology: Multiplexed PCR Reference Range: None detected ID Date Data Source [id number] 11/06/2019 10:25:00 PM EDT [facility] Name Value Range Interpretation Code Description Data Nataly rce(s) Supporting Document(s) SARS coronavirus 2 RNA [facility] This lab was ordered by [facility] and reported by [facility]. Procedure Social History Code Duration Value Status Description Data Source(s ) Smoking 09/30/2020 12:00:00 AM EDT Current Smoker completed Curre nt Smoker eCW1 ([facility]) Smoking 09/30/2020 12:00:00 AM EDT Current Smoker completed Curre nt Smoker eCW1 ([facility]) Smoking 09/30/2020 12:00:00 AM EDT Current Smoker completed Curre nt Smoker eCW1 ([facility]) Smoking 09/30/2020 12:00:00 AM EDT Current Smoker completed Curre nt Smoker eCW1 ([facility]) Smoking 09/30/2020 12:00:00 AM EDT Current Smoker completed Curre nt Smoker eCW1 ([facility]) Smoking 07/03/2020 12:00:00 AM EDT Current Smoker completed Curre nt Smoker eCW1 ([facility]) Smoking 07/03/2020 12:00:00 AM EDT Current Smoker completed Curre nt Smoker eCW1 ([facility]) Smoking 07/03/2020 12:00:00 AM EDT Current Smoker completed Curre nt Smoker eCW1 ([facility]) Smoking 07/03/2020 12:00:00 AM EDT Current Smoker completed Curre nt Smoker eCW1 ([facility]) Smoking 05/30/2020 12:00:00 AM EST Current Smoker completed Curre nt Smoker eCW1 ([facility]) Smoking 04/21/2020 12:00:00 AM EST Current Smoker completed Curre nt Smoker eCW1 ([facility]) Smoking 04/08/2020 12:00:00 AM EST Current Smoker completed Curre nt Smoker eCW1 ([facility]) Smoking 04/08/2020 12:00:00 AM EST Current Smoker completed Curre nt Smoker eCW1 ([facility]) Smoking 04/08/2020 12:00:00 AM EST Current Smoker completed Curre nt Smoker eCW1 ([facility]) Vital Signs ID Date Data Source UNK Name Value Range Interpretation Code Description Data Source(s) Body temperature 97.5 [degF] 97.5 [degF] MEDENT ([facility]) Body height 65.50 [in_i] 65.50 [in_i] MEDENT ([facility]) 5'5.50" Body weight 142.12 [lb_av] 142.12 [lb_av] MEDEN T ([facility]) Body mass index (BMI) [Ratio] 23.3 kg/m2 23.3 k g/m2 MEDENT ([facility]) Body weight 143 [lb_av] 143 [lb_av] eCW1 ([facility]) Body height 66 [in_i] 66 [in_i] eCW1 ([facility]) Body mass index (BMI) [Ratio] 23.08 kg/m2 23.08 kg/m2 W1 ([facility]) Heart rate 105 /min 105 /min eCW1 ([facility]) Respiratory rate 18 /min 18 /min eCW1 ([facility]) Body temperature 97.2 [degF] 97.2 [degF] eCW1 ( [facility]) Systolic blood pressure 110 mm[Hg] 110 mm[Hg] e CW1 ([facility]) Diastolic blood pressure 70 mm[Hg] 70 mm[Hg] eCW1 ([facility]) Body weight 158 [lb_av] 158 [lb_av] eCW1 ([facility]) Body height 66 [in_i] 66 [in_i] eCW1 ([facility]) Body mass index (BMI) [Ratio] 25.50 kg/m2 25.50 kg/m2 eCW1 ([facility]) Heart rate /min eCW1 ([facility]) Respiratory rate 18 /min 18 /min eCW1 ([facility]) Body temperature 98.7 [degF] 98.7 [degF] eCW1 ( [facility]) Systolic blood pressure 126 mm[Hg] 126 mm[Hg] e CW1 ([facility]) Diastolic blood pressure 78 mm[Hg] 78 mm[Hg] eCW1 ([facility]) Respiratory rate 18 /min 18 /min eCW1 ([facility]) Body weight 154 [lb_av] 154 [lb_av] eCW1 ([facility]) Body height 66 [in_i] 66 [in_i] eCW1 ([facility]) Body mass index (BMI) [Ratio] 24.85 kg/m2 24.85 kg/m2 eCW1 ([facility]) Body temperature 98.4 [degF] 98.4 [degF] eCW1 ( [facility]) Heart rate 107 /min 107 /min eCW1 ([facility]) Systolic blood pressure 96 mm[Hg] 96 mm[Hg] e CW1 ([facility]) Diastolic blood pressure 66 mm[Hg] 66 mm[Hg] eCW1 ([facility]) Body weight 153 [lb_av] 153 [lb_av] eCW1 ([facility]) Body height 66 [in_i] 66 [in_i] eCW1 ([facility]) Body mass index (BMI) [Ratio] 24.69 kg/m2 24.69 kg/m2 eCW1 ([facility]) Heart rate 104 /min 104 /min eCW1 ([facility]) Respiratory rate 18 /min 18 /min eCW1 ([facility]) Body temperature 97.0 [degF] 97.0 [degF] eCW1 ( [facility]) Systolic blood pressure 104 mm[Hg] 104 mm[Hg] e CW1 ([facility]) Diastolic blood pressure 62 mm[Hg] 62 mm[Hg] eCW1 ([facility]) ID Date Data Source [id number] 04/01/2020 10:39:[address] [facility] Name Value Range Interpretation Code Description Data Source(s) Weight (Calculated Kilograms) 63.50 63.50 [facility] Height (Calculated Centimeters) 167.64 167. 64 [facility] Body Mass Index (BMI) 22.6 22.6 [facility] ID Date Data Source [id number] 04/29/2020 01:30:00 PM EST [facility] spital Name Value Range Interpretation Code Description Data Source(s) Weight Measurement Method 8 8 [facility] Weight (Calculated Kilograms) 63.50 63.50 [facility] Weight 2240 2240 [facility] pital Temperature Source 7 7 [facility] Temperature 97.9 97.9 [facility] spital Respiratory Effort 1 1 [facility] Respiratory Rate 20 20 [facility] Pulse Assessment Method 4 4 [facility] Pulse Rate 112 112 [facility] pital Height (Calculated Centimeters) 167.64 167. 64 [facility] Height 66 66 [facility] Pressure 110/80 110/80 [facility] Body Mass Index (BMI) [address] [facility] Weight Measurement Method 8 8 [facility] Weight (Calculated Kilograms) 63.50 63.50 [facility] Weight 2240 2240 [facility] pital Temperature Source 7 7 [facility] Temperature 97.9 97.9 [facility] spital Respiratory Effort 1 1 [facility] Respiratory Rate 20 20 [facility] Pulse Assessment Method 4 4 [facility] Pulse Rate 112 112 [facility] pital Height (Calculated Centimeters) 167.64 167. 64 [facility] Height 66 66 [facility] Blood Pressure 110/80 110/80 [facility] Body Mass Index (BMI) [address] [facility] Weight Measurement Method 8 8 [facility] Weight (Calculated Kilograms) 63.50 63.50 [facility] Weight 2240 2240 [facility] pital Temperature Source 7 7 [facility] Temperature 97.9 97.9 [facility] spital Respiratory Effort 1 1 [facility] Respiratory Rate 20 20 [facility] Pulse Assessment Method 4 4 [facility] Pulse Rate 112 112 [facility] pital Height (Calculated Centimeters) 167.64 167. 64 [facility] Height 66 66 [facility] pital Blood Pressure 110/80 110/80 [facility] Body Mass Index (BMI) 22.[address] [facility] Weight Measurement Method 8 8 [facility] Weight (Calculated Kilograms) 63.50 63.50 [facility] Weight 2240 2240 [facility] pital Temperature Source 7 7 [facility] Temperature 97.2 97.2 [facility] spital Respiratory Effort 1 1 [facility] Respiratory Rate 14 14 [facility] Pulse Assessment Method 4 4 [facility] Pulse Rate 85 85 [facility] pital Height (Calculated Centimeters) 167.64 167. 64 [facility] Height 66 66 [facility] Blood Pressure 107/75 107/75 [facility] Body Mass Index (BMI) 22.[address] [facility] Weight (Calculated Kilograms) 63.[address] [place] [address] Height (Calculated Centimeters) 167.64 167. 64 [facility] Body Mass Index (BMI) 22.[address] [facility] ID Date Data Source [id number] 12/20/2019 12:06:00 AM EDT [facility] Name Value Range Interpretation Code Description Data Source(s) Weight (Calculated Kilograms) 63.50 63.50 [facility] Height (Calculated Centimeters) 167.64 167. 64 [facility] Body Mass Index (BMI) 22.6 22.6 [facility] Weight (Calculated Kilograms) 63.50 63.50 [facility] Height (Calculated Centimeters) 167.64 167. 64 [facility] Body Mass Index (BMI) 22.6 22.6 [facility] ID Date Data Source [id number] 12/20/2019 10:54:[address] [facility] Name Value Range Interpretation Code Description Data Source(s) Weight Measurement Method 1 1 [facility] Weight (Calculated Kilograms) 63.50 63.50 [facility] Weight 2400 2400 [facility] Temperature Source 7 7 [facility] Temperature 98.4 98.4 [facility] Respiratory Effort 1 1 [facility] Respiratory Rate 16 16 [facility] Pulse Assessment Method 4 4 [facility] Pulse Rate 55 55 [facility] Height (Calculated Centimeters) 167.64 167. 64 [facility] Height 66 66 [facility] Blood Pressure 98/64 98/64 [facility] Body Mass Index (BMI) 22.6 22.6 [facility] Weight Measurement Method 1 1 [facility] Weight (Calculated Kilograms) 63.50 63.50 [facility] Weight 2400 2400 [facility] Temperature Source 7 7 [facility] Temperature 98.4 98.4 [facility] Respiratory Effort 1 1 [facility] Respiratory Rate 16 16 [facility] Pulse Assessment Method 4 4 [facility] Pulse Rate 55 55 [facility] Height (Calculated Centimeters) 167.64 167. 64 [facility] Height 66 66 [facility] Blood Pressure 98/64 98/64 [facility] Body Mass Index (BMI) 22.6 22.6 [facility] Weight Measurement Method 1 1 [facility] Weight (Calculated Kilograms) 63.50 63.50 [facility] Weight 2400 2400 [facility] Temperature Source 7 7 [facility] Temperature 98.4 98.4 [facility] Respiratory Effort 1 1 [facility] Respiratory Rate 16 16 [facility] Pulse Assessment Method 4 4 [facility] Pulse Rate 55 55 [facility] Height (Calculated Centimeters) 167.64 167. 64 [facility] Height 66 66 [facility] Blood Pressure 98/64 98/64 [facility] Body Mass Index (BMI) 22.6 22.6 [facility] Weight Measurement Method 1 1 [facility] Weight (Calculated Kilograms) 63.50 63.50 [facility] Weight 2240 2240 [facility] Temperature Source 7 7 [facility] Temperature 97.6 97.6 [facility] Respiratory Effort 1 1 [facility] Respiratory Rate 16 16 [facility] Pulse Assessment Method 4 4 [facility] Pulse Rate 74 74 [facility] Height (Calculated Centimeters) 167.64 167. 64 [facility] Height 66 66 [facility] Blood Pressure 126/82 126/82 [facility] Body Mass Index (BMI) 22.6 22.6 [facility] Weight Measurement Method 1 1 [facility] Weight (Calculated Kilograms) 63.50 63.50 [facility] Weight 2240 2240 [facility] Temperature Source 7 7 [facility] Temperature 97.6 97.6 [facility] Respiratory Effort 1 1 [facility] Respiratory Rate 18 18 [facility] Pulse Assessment Method 4 4 [facility] Pulse Rate 74 74 [facility] Height (Calculated Centimeters) 167.64 167. 64 [facility] Height 66 66 [facility] Blood Pressure 126/82 126/82 [facility] Body Mass Index (BMI) 22.6 22.6 [facility] Weight (Calculated Kilograms) 63.50 63.50 [facility] Height (Calculated Centimeters) 167.64 167. 64 [facility] Body Mass Index (BMI) 22.6 22.6 [facility] ID Date Data Source [id number] 11/27/2019 01:26:00 PM EDT [facility] Name Value Range Interpretation Code Description Data Source(s) Weight (Calculated Kilograms) 63.50 63.50 [facility] Weight 2240.002 2240.002 [facility] Temperature Source 7 7 [facility] Temperature 98.7 98.7 [facility] Respiratory Effort 1 1 [facility] Respiratory Rate 16 16 [facility] Pulse Assessment Method 4 4 [facility] Pulse Rate 88 88 [facility] Height (Calculated Centimeters) 167.64 167. 64 [facility] Height 66 66 [facility] Blood Pressure 110/62 110/62 [facility] Body Mass Index (BMI) 22.6 22.6 [facility] Weight (Calculated Kilograms) 63.50 63.50 [facility] Weight 2240.002 2240.002 [facility] Temperature Source 7 7 [facility] Temperature 98.7 98.7 [facility] Respiratory Effort 1 1 [facility] Respiratory Rate 16 16 [facility] Pulse Assessment Method 4 4 [facility] Pulse Rate 88 88 [facility] Height (Calculated Centimeters) 167.64 167. 64 [facility] Height 66 66 [facility] Blood Pressure 110/62 110/62 [facility] Body Mass Index (BMI) 22.6 22.6 [facility] Weight (Calculated Kilograms) 63.50 63.50 [facility] Weight 2240.002 2240.002 [facility] Temperature Source 7 7 [facility] Temperature 98.7 98.7 [facility] Respiratory Effort 1 1 [facility] Respiratory Rate 16 16 [facility] Pulse Assessment Method 4 4 [facility] Pulse Rate 88 88 [facility] Height (Calculated Centimeters) 167.64 167. 64 [facility] Height 66 66 [facility] Blood Pressure 110/62 110/62 [facility] Body Mass Index (BMI) 22.6 22.6 [facility] Weight (Calculated Kilograms) 63.50 63.50 [facility] Weight 2240.002 2240.002 [facility] Temperature Source 7 7 [facility] Temperature 98.6 98.6 [facility] Respiratory Effort 2 2 [facility] Respiratory Rate 18 18 [facility] Pulse Assessment Method 4 4 [facility] Pulse Rate 99 99 [facility] Height (Calculated Centimeters) 167.64 167. 64 [facility] Height 66 66 [facility] Blood Pressure 122/88 122/88 [facility] Body Mass Index (BMI) 22.6 22.6 [facility] Weight (Calculated Kilograms) 63.50 63.50 [facility] Weight 2240.002 2240.002 [facility] Temperature Source 7 7 [facility] Temperature 98.2 98.2 [facility] Respiratory Effort 1 1 [facility] Respiratory Rate 16 16 [facility] Pulse Assessment Method 4 4 [facility] Pulse Rate 79 79 [facility] Height (Calculated Centimeters) 167.64 167. 64 [facility] Height 66 66 [facility] Blood Pressure 106/81 106/81 [facility] Body Mass Index (BMI) 22.6 22.6 [facility] Weight (Calculated Kilograms) 63.50 63.50 [facility] Weight 2240.002 2240.002 [facility] Temperature Source 7 7 [facility] Temperature 98.4 98.4 [facility] Respiratory Rate 18 18 [facility] Pulse Assessment Method 4 4 [facility] Pulse Rate 87 87 [facility] Height (Calculated Centimeters) 167.64 167. 64 [facility] Height 66 66 [facility] Blood Pressure 114/74 114/74 [facility] Body Mass Index (BMI) 22.6 22.6 [facility] Weight (Calculated Kilograms) 63.50 63.50 [facility] Weight 2240.002 2240.002 [facility] Temperature Source 7 7 [facility] Temperature 99.4 99.4 [facility] Respiratory Rate 18 18 [facility] Pulse Assessment Method 4 4 [facility] Pulse Rate 98 98 [facility] Height (Calculated Centimeters) 167.64 167. 64 [facility] Height 66 66 [facility] Blood Pressure 106/66 106/66 [facility] Body Mass Index (BMI) 22.6 22.6 [facility] Weight (Calculated Kilograms) 73.94 73.94 [facility] Height (Calculated Centimeters) 167.64 167. 64 [facility] Body Mass Index (BMI) 26.3 26.3 [facility] Weight (Calculated Kilograms) 73.94 73.94 [facility] Height (Calculated Centimeters) 167.64 167. 64 [facility] Body Mass Index (BMI) 26.3 26.3 [facility] ID Date Data Source [id number] 12/25/2019 08:28:00 AM EDT [facility] Name Value Range Interpretation Code Description Data Source(s) Weight Measurement Method 8 8 [facility] Weight (Calculated Kilograms) 63.50 63.50 [facility] Weight 2240 2240 [facility] pital Temperature Source 7 7 [facility] Temperature 98.8 98.8 [facility] spital Respiratory Effort 1 1 [facility] Respiratory Rate 18 18 [facility] Pulse Assessment Method 4 4 [facility] Pulse Rate 86 86 [facility] pital Height (Calculated Centimeters) 167.64 167. 64 [facility] Height 66 66 [facility] Blood Pressure 121/86 121/86 [facility] Body Mass Index (BMI) 22.[address] [facility] Weight Measurement Method 8 8 [facility] Weight (Calculated Kilograms) 63.50 63.50 [facility] Weight 2240 2240 [facility] pital Temperature Source 1 1 [facility] Temperature 98.7 98.7 [facility] spital Respiratory Effort 1 1 [facility] Respiratory Rate 20 20 [facility] Pulse Assessment Method 4 4 [facility] Pulse Rate 114 114 [facility] pital Height (Calculated Centimeters) 167.64 167. 64 [facility] Height 66 66 [facility] Blood Pressure 131/96 131/96 [facility] Body Mass Index (BMI) 22.[address] [facility] Weight Measurement Method 8 8 [facility] Weight (Calculated Kilograms) 63.50 63.50 [facility] Weight 2240 2240 [facility] pital Temperature Source 1 1 [facility] Temperature 98.7 98.7 [facility] Respiratory Effort 1 1 [facility] Respiratory Rate 20 20 [facility] Pulse Assessment Method 4 4 [facility] Pulse Rate 114 114 [facility] pital Height (Calculated Centimeters) 167.64 167. 64 [facility] Height 66 66 [facility] pital Blood Pressure 131/96 131/96 [facility] Body Mass Index (BMI) 22.[address] [facility] Weight (Calculated Kilograms) 63.50 63.50 [facility] Height (Calculated Centimeters) 167.64 167. 64 [facility] Body Mass Index (BMI) 22.[address] [facility] Weight (Calculated Kilograms) 63.50 63.50 [facility] Height (Calculated Centimeters) 167.64 167. 64 [facility] Body Mass Index (BMI) 22.[address] ID Date Data Source [id number] 11/22/2019 02:02:00 PM EDT [facility] lashanda Name Value Range Interpretation Code Description Data Source(s) Weight (Calculated Kilograms) 63.[address] [place] [address] Height (Calculated Centimeters) 167.64 167. 64 [facility] Body Mass Index (BMI) 22.[address] Weight (Calculated Kilograms) 63.[address] [place] [address] Height (Calculated Centimeters) 167.64 167. 64 [facility] Body Mass Index (BMI) 22.[address] Patient Treatment Plan of Care Planned Activity Planned Date Details Description Data Source (s) Acamprosate calcium 333 MG Delayed Release Oral Tablet 09/23/2020 12:00:00 AM EDT [facility] ([facility]) Acamprosate calcium 333 MG Delayed Release Oral Tablet 09/13/2020 12:00:00 AM EDT [facility] Acamprosate calcium 333 MG Delayed Release Oral Tablet 09/13/2020 12:00:00 AM [facility] quetiapine 25 MG Oral Tablet [Seroquel] 04/08/2020 12:00:00 AM EST eC1 ([facility]) Naltrexone 112 MG/ML Injectable Suspension [Vivitrol] 04/08/2020 12:00:00 AM EST eC ([facility]) Naltrexone 112 MG/ML Injectable Suspension [Vivitrol] 04/08/2020 12:00:00 AM EST eCW1 ([facility]) quetiapine 25 MG Oral Tablet [Seroquel] 04/08/2020 12:00:00 AM EST eCW1 ([facility]) Naltrexone 112 MG/ML Injectable Suspension [Vivitrol] 04/08/2020 12:00:00 AM EST eCW1 ([facility]) Naltrexone 112 MG/ML Injectable Suspension [Vivitrol] 04/08/2020 12:00:00 AM EST eCW1 ([facility]) quetiapine 25 MG Oral Tablet [Seroquel] 04/08/2020 12:00:00 AM EST eCW1 ([facility]) Naltrexone 112 MG/ML Injectable Suspension [Vivitrol] 04/08/2020 12:00:00 AM EST eCW1 ([facility]) Naltrexone 112 MG/ML Injectable Suspension [Vivitrol] 04/08/2020 12:00:00 AM EST eCW1 ([facility])
[2020-12-31] MEDS ORDERED: OXAZEPAM 15 MG CAP PO ONE (15:30)
[2020-12-31] MEDS ORDERED: NS 1,000 ML IV ONE (15:30)
--- OUTSIDE RECORDS SUMMARY | 2020-12-31 15:50 | CCD ---
Author Author [facility] Organization [facility] Address Unknown Phone Unavailable Care Team Providers Care Bottle Blowing Machine Tender Name Role Phone Jenni Spring MD Unavailable [...] Bismark VERDUGO MD Unavailable Unavailable ADRIANNA, Bismark VERDUOG MD Unavailable Unavailable ADRIANNA, Bismark VERDUGO MD [...] ADRIANNA, Bismark VERDUGO MD Unavailable Unavailable ADRIANNA, Bismakr VERDUGO MD Unavailable Unavailable ADRIANNA, Bismark VERDUGO [...] Unavailable Salena AQUINO Unavailable Unavailable Nichole DIA CLEATER Unavailable Unavailable Nichole DIA CLEATER Unavailable Unavailable Nichole DIA CLEATER Unavailable Unavailable Joycelyn Pugh MD Unavailable Unavailable [...] Unavailable Unavailable UNKNOWN Unavailable Unavailable Sienkiewycz, L Dianne GRIEVANCE AND APPEALS COORDINATOR Unavailable Unavailable Sienkiewycz, L Dianne GRIEVANCE AND APPEALS COORDINATOR Unavailable Unavailable Sienkiewycz, L Dianne GRIEVANCE AND APPEALS COORDINATOR Unavailable Unavailable Sienkiewycz, L Dianne GRIEVANCE AND APPEALS COORDINATOR Unavailable Unavailable Sienkiewycz, L Dianne GRIEVANCE AND APPEALS COORDINATOR Unavailable Unavailable Sienkiewycz, L Dianne GRIEVANCE AND APPEALS COORDINATOR Unavailable Unavailable Sienkiewycz, L Dianne GRIEVANCE AND APPEALS COORDINATOR Unavailable Unavailable BROUGHAL, C TALON PA Unavailable [...] is protected by Article 27-F of the [facility] Public Health law. If you continue you may have access to information: Regarding HIV / AIDS; Provided by facilities licensed or operated by the [facility] Office of Mental Health; or Provided by the [facility] Office for People With Developmental Disabilities. If such information is present, then the following [facility] mandated warning applies: This information has been [...] law may result in a fine or penitentiary sentence or both. A general authorization for the release of medical or other information is NOT sufficient authorization for further disc losure. Allergies and Adverse Reactions Type Description Substance Reaction Status Data Source(s ) Propensity to adverse reactions Propensity to adverse reacti ons No Known Drug Allergies [facility] No Known Allergy [facility] Encounters Encounter Providers Location Date Indications Data Source(s ) Unknown [address] [facility] [place] [address] 12/19/2020 12:00:00 AM EDT eCW1 ([facility]) Unknown [address] [facility] [place] [address] 12/15/2020 12:00:00 AM EDT eCW1 ([facility]) Outpatient [address] [facility] [place] [address] 10/24/2020 12:00:00 AM EDT eCW1 ([facility]) Outpatient Attender: Jason SAINZ Physical Therapy 02:45:00 PM EDT [facility] ([facility]) [place] [address] [facility] [address] 09/30/2020 12:00:00 AM EDT eCW1 ([facility]) Unknown [address] [facility] [address] 09/30/2020 12:00:00 AM EDT eCW1 ([facility]) Unknown [address] [facility] [place] [address] 09/16/2020 12:00:00 AM EDT eCW1 ([facility]) Inpatient Attender: Cookie Spring MDAdmitter: Cookie navarro MD SURG-MED 09/12/2020 04:20:00 PM EDT - 09/13/2020 05:30:[address] [facility] Patient discharged. Inpatient Attender: Cookie Spring MDAdmitter: Cookie navarro MD SURG-MED 09/12/2020 04:20:[address] [facility] V Attender: Cookie Spring MDAdmitter: Cookie navarro MD SURG-MED 09/12/2020 02:55:[address] [facility] Patient admitted. Outpatient Attender: Dianne Cesar NP SURG-NPLAB 09/12/2020 02:01:[address] [facility] [place] [address] [facility] [place] [address] 07/15/2020 12:00:00 AM EDT eCW1 ([facility]) [place] [address] [facility] [place] [address] 07/15/2020 12:00:00 AM EDT eCW1 ([facility]) Unknown [address] [facility] [place] [address] 07/08/2020 12:00:00 AM EDT eCW1 ([facility]) Outpatient [address] [facility] [place] [address] 05/30/2020 12:00:00 AM EST eCW1 [facility] [place] [address] [facility] [place] [address] 04/21/2020 12:00:00 AM EST eCW1 ([facility]) Out[place] [address] [facility] [place] [address] 04/08/2020 12:00:00 AM EST eCW1 ([facility]) Unknown [address] [facility] [place] [address] 04/08/2020 12:00:00 AM EST eCW1 ([facility]) Unknown [address] [facility] [place] [address] 04/08/2020 12:00:00 AM EST eCW1 ([facility]) Outpatient Attender: UNKNOWN CPSCALOR-LABEJN 03/26/2020 09:45:00 AM E [facility] Inpatient Attender: Con Penaloza MDAdmitter: Con tyson MD [facility] 03/26/2020 04:22:00 AM EST - 03/29/2020 11:20:00 AM EST [id number] [facility] 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 Outpatient Attender: RAYRAY AQUINO 01/08/2020 06:00:00 PM [facility] Outpatient Attender: RAYRAY AQUINO 12/24/2019 04:00:00 PM [facility] Outpatient Attender: CIERRA ESTRELLA 12/24/2019 02:00:00 PM ED [facility] Outpatient Attender: Indira BUCKLEY CPSCAORT-CHEPDREH 12/19/2019 08:30:00 AM EDT - 12/19/2019 08:31:00 AM EDT [facility] pital MAR Patient discharged. Inpatient Attender: Maude Pina nder: MAUDE ALVAREZ MDAdmitter: MAUDE ALVAREZ MD CPSCAORT-CHEPPDREH 11/24/2019 09:54:00 AM EDT - 12/19/2019 06:02:00 AM EDT PSYCHOACTIVE SUBSTANCE DEPENDENCE [facility] PSYCHOACTIVE SUBSTANCE DEPENDENCE Patient discharged. Inpatient Attender: Imre Frida-Jorge MDAttender: Sylwia Pugh MDAdmitter: Sylwia Pugh MDConsultant: TALON BEAR PAConsultant: Quinn Nicholson MD CPSCAORT-MSU2 11/20/2019 11:30:00 PM EDT - 11/24/2019 10:00:00 AM EDT ETOH WITHDRAWAL,COVID POSITIVE [facility] ETOH WITHDRAWAL,COVID POSITIVE Patient discharged. Emergency Attender: GEORGE DIA [facility] ED-ED 03/2019 06:06:00 PM EDT - 11/20/2019 10:45:00 PM EDT [facility] Patient [facility]. Outpatient Attender: LUCINA RODAS MD ED-LABPNP 2019 04:44:00 PM EDT - 11/20/2019 04:45:00 PM EDT POSSIBLE COVID EXPOSURE [facility] POSSIBLE COVID EXPOSURE Patient discharged. Immunizations Vaccine Date Status Description Data Source(s) 10/24/2020 09:51:00 AM EDT completed [facility] 10/24/2020 09:51:00 AM EDT completed e [facility]) 07/15/2020 09:52:00 AM EDT completed e CW1 [facility]) 07/15/2020 09:52:00 AM EDT completed e CW1 [facility]) 07/15/2020 09:52:00 AM EDT completed e CW1 [facility]) 07/15/2020 09:52:00 AM EDT completed e CW1 [facility]) 07/15/2020 09:52:00 AM EDT completed e CW1 [facility]) 07/15/2020 09:52:00 AM EDT completed e CW1 ([facility]) 07/15/2020 09:52:00 AM EDT completed e CW1 [facility]) 07/15/2020 09:52:00 AM EDT completed e CW1 ([facility]) Medications Medication Brand Name Start Date Product Form Dose Route Admi nistrative Instructions Pharmacy Instructions Status Indications Reaction Description Data Source(s) Disulfiram 250 MG Oral Tablet Disulfiram 250 MG 12/12/2020 12:00:00 AM EDT 1.0 {tablet} active Disulfiram 250 MG eCW1 [facility]) Disulfiram 250 MG Oral Tablet Disulfiram 250 MG 12/12/2020 12:00:00 AM EDT 1.0 {tablet} active Disulfiram 250 MG [facility]CW1 [facility]) 250 mg 09/30/2020 12:00:00 AM EDT tablet [...] ts} active Acamprosate Calcium 333 MG eCW1 [facility]) Acamprosate calcium 333 MG Delayed Relea se Oral Tablet Acamprosate Calcium 333 MG Acamprosate Calcium 333 MG 09/23/2020 12:00:00 AM EDT 2.0 {table ts} active Acamprosate Calcium 333 MG eCW1 [facility]) Acamprosate calcium 333 MG Delayed Relea se Oral Tablet Acamprosate Calcium 333 MG Acamprosate Calcium 333 MG 09/23/2020 12:00:00 AM EDT 2.0 {table ts} active Acamprosate Calcium 333 MG eCW1 [facility]) Acamprosate calcium 333 MG Delayed Relea se Oral Tablet Acamprosate Calcium 333 MG Acamprosate Calcium 333 MG 09/23/2020 12:00:00 AM EDT 2.0 {table ts} active Acamprosate Calcium 333 MG eCW1 [facility]) Acamprosate calcium 333 MG Delayed Relea se Oral Tablet Acamprosate Calcium 333 MG Acamprosate Calcium 333 MG 09/23/2020 12:00:00 AM EDT 2.0 {table ts} active Acamprosate Calcium 333 MG eCW1 [facility]) Acamprosate calcium 333 MG Delayed Relea se Oral Tablet Acamprosate Calcium 333 MG Acamprosate Calcium 333 MG 09/23/2020 12:00:00 AM EDT 2.0 {table ts} active Acamprosate Calcium 333 MG eCW1 [facility]) Acamprosate calcium 333 MG Delayed Relea se Oral Tablet Acamprosate Calcium 333 Mg Tablet.dr Dick, 666 Mg Oral Acamprosate Calcium 333 Mg Tablet.dr Dick, 666 Mg Oral 09/13/2020 12:00:00 AM EDT 666 completed Three Times a Day [facility] Acamprosate calcium 333 MG Delayed Relea se Oral Tablet Acamprosate Calcium 333 MG TABLET. Acamprosate Calcium 333 MG TABLET. 09/13/2020 12:00:00 AM EDT 666 [facility] 09/08/2020 12:00:00 AM EDT capsule [...] NCE DAILY FOR 2 WEEKS SOLD: 05/30/2020 [facility] Citalopram 40 MG Oral [...] 1.0 {tablet_at_bedtime} active SEROquel 25 MG [facility]CW1 [facility] Naltrexone 112 MG/ML Injectable Suspension [Vivitrol] Vivitrol 380 MG Vivitrol 380 MG 04/08/2020 12:00:00 AM EST 4.0 {ml} active Vivitrol 380 MG eCW1 ([facility]) Naltrexone 112 MG/ML Injectable Suspension [Vivitrol] Vivitrol 380 MG Vivitrol 380 MG 04/08/2020 12:00:00 AM EST 4.0 {ml} active Vivitrol 380 MG eCW1 ([facility]) Naltrexone 112 MG/ML Injectable Suspension [Vivitrol] Vivitrol 380 MG Vivitrol 380 MG 04/08/2020 12:00:00 AM EST 4.0 {ml} active Vivitrol 380 MG eCW1 ([facility]) Naltrexone 112 MG/ML Injectable Suspension [Vivitrol] Vivitrol 380 MG Vivitrol 380 MG 04/08/2020 12:00:00 AM EST 4.0 {ml} active Vivitrol 380 MG eCW1 ([facility]) Naltrexone 112 MG/ML Injectable Suspension [Vivitrol] Vivitrol 380 MG Vivitrol 380 MG 04/08/2020 12:00:00 AM EST 4.0 {ml} active Vivitrol 380 MG eCW1 ([facility]) Naltrexone 112 MG/ML Injectable Suspension [Vivitrol] Vivitrol 380 MG Vivitrol 380 MG 04/08/2020 12:00:00 AM EST 4.0 {ml} active Vivitrol 380 MG eCW1 ([facility]) Naltrexone 112 MG/ML Injectable Suspension [Vivitrol] Vivitrol 380 MG Vivitrol 380 MG 04/08/2020 12:00:00 AM EST 4.0 {ml} active Vivitrol 380 MG eCW1 ([facility]) Naltrexone 112 MG/ML Injectable Suspension [Vivitrol] Vivitrol 380 MG Vivitrol 380 MG 04/08/2020 12:00:00 AM EST 4.0 {ml} active Vivitrol 380 MG eCW1 ([facility]) Naltrexone 112 MG/ML Injectable Suspension [Vivitrol] Vivitrol 380 MG Vivitrol 380 MG 04/08/2020 12:00:00 AM EST 4.0 {ml} active Vivitrol 380 MG eCW1 ([facility]) Naltrexone 112 MG/ML Injectable Suspension [Vivitrol] Vivitrol 380 MG Vivitrol 380 MG 04/08/2020 12:00:00 AM EST 4.0 {ml} active Vivitrol 380 MG eCW1 ([facility]) Naltrexone 112 MG/ML Injectable Suspension [Vivitrol] Vivitrol 380 MG Vivitrol 380 MG 04/08/2020 12:00:00 AM EST 4.0 {ml} active Vivitrol 380 MG eCW1 ([facility]) Naltrexone 112 MG/ML Injectable Suspension [Vivitrol] Vivitrol 380 MG Vivitrol 380 MG 04/08/2020 12:00:00 AM EST 4.0 {ml} active Vivitrol 380 MG eCW1 ([facility]) Naltrexone 112 MG/ML Injectable Suspension [Vivitrol] Vivitrol 380 MG Vivitrol 380 MG 04/08/2020 12:00:00 AM EST 4.0 {ml} active Vivitrol 380 MG eCW1 ([facility]) Naltrexone 112 MG/ML Injectable Suspension [Vivitrol] Vivitrol 380 MG Vivitrol 380 MG 04/08/2020 12:00:00 AM EST 4.0 {ml} active Vivitrol 380 MG eCW1 ([facility]) quetiapine 25 MG Oral Tablet [Seroquel] SEROquel 25 MG SEROq uel 25 MG 04/08/2020 12:00:00 AM EST 1.0 {tablet_at_bedtime} active SEROquel 25 MG eCW1 ([facility]) Naltrexone 112 MG/ML Injectable Suspension [Vivitrol] Vivitrol 380 MG Vivitrol 380 MG 04/08/2020 12:00:00 AM EST 4.0 {ml} active Vivitrol 380 MG eCW1 ([facility]) Naltrexone 112 MG/ML Injectable Suspension [Vivitrol] Vivitrol 380 MG Vivitrol 380 MG 04/08/2020 12:00:00 AM EST 4.0 {ml} active Vivitrol 380 MG eCW1 ([facility]) Naltrexone 112 MG/ML Injectable Suspension [Vivitrol] Vivitrol 380 MG Vivitrol 380 MG 04/08/2020 12:00:00 AM EST 4.0 {ml} active Vivitrol 380 MG eCW1 ([facility]) quetiapine 25 MG Oral Tablet [Seroquel] SEROquel 25 MG SEROq uel 25 MG 04/08/2020 12:00:00 AM EST 1.0 {tablet_at_bedtime} active SEROquel 25 MG eCW1 ([facility]) 1 mg 11/08/2019 12:00:00 AM EDT tablet [...] type / Coverage type Policy ID Covered libertarian ID Covered libertarian's relationship to cardoso Policy Cardoso Plan Information [facility] [id number] Unemploye d [id number] [facility] [id number] S [id number] [facility] [id number] Unemploye d [id number] SELF PAY SP [facility] COMMUNITY PLAN MCDHMO [id number] SP [id number] [facility](MCAID) O [id number] S [id number] [facility] WELL 4 [place] [id number] S [id number] [facility] MEDICAID [id number] S [id number] SELF PAY ONLY [id number] SP [id number] MEDICAID [id number] S [id number] [facility] COMMUNITY PLAN MCDHMO NO CARDS SP NO CARDS [facility] PL [id number] Unemploye d [id number] SELF PAY Unemployed [facility] [id number] SP [id number] [facility] PL [id number] S [id number] [facility] [address] [id number] S [id number] SELF PAY ONLY [id number] SP [id number] MEDICAID [id number] SP [id number] [facility]-Medicaid [id number] ANSI-Medicaid [id number] ANSI-Medicaid [id number] ANSI-Medicaid [id number] ANSI-Medicaid [id number] ANSI-Medicaid [id number] [facility] COMMUNITY PLAN MCDO [id number] SP [id number] [facility] COMMUNITY PLAN MCDO [id number] SP [id number] [facility] [id number] SP [id number] ANSI-Medicaid [id number] ANSI-Medicaid [id number] MEDICAID [id number] SP [id number] MEDICAID [id number] SP [id number] [facility](MCAID) O [id number] S [id number] [facility] [id number] SP [id number] [employer] [id number] SP [id number] [employer] O [id number] S [id number] [employer] [id number] SP [id number] MEDICAID - CLINIC [id number] [facility] [id number] SP [id number] [facility] COMMUNITY PLAN [facility] [id number] SP [id number] [facility] COMMUNITY PLAN [id number] SP [id number] Problems, Conditions, and Diagnoses Code Display Name Description Problem Type Effective Dates Data Source(s) Y90.0 Blood alcohol level of less than 20 mg/1 00 ml BLOOD ALCOHOL LEVEL OF LESS THAN 20 MG/100 ML Diagnosis 03/26/2020 04:22:00 AM [facility]ital Z91.81 History of falling HISTORY OF FALLING Diagnosis 08/2020 04:22:00 AM [facility] M25.531 Pain in right wrist PAIN IN RIGHT WRIST Diagnosis 0 03/26/2020 04:22:00 AM [facility] Z53.29 Procedure and treatment not carried out because of patient's decision for other reasons PROC/TRTMT NOT CRD OUT BEC PT DECISION FOR OTH REASONS Diagn osis 03/26/2020 04:22:00 AM [facility] F34.1 Dysthymic disorder DYSTHYMIC DISORDER Diagnosis 08/2020 04:22:00 AM [facility] F17.210 Nicotine dependence, cigarettes, uncompl icated NICOTINE DEPENDENCE, CIGARETTES, UNCOMPLICATED Diagnosis 03/26/2020 04:22:00 AM [facility] F10.230 Alcohol dependence with withdrawal, unco mplicated ALCOHOL DEPENDENCE WITH WITHDRAWAL, UNCOMPLICATED Diagnosis 03/26/2020 04:22:00 AM [facility] F10.11 ALCOHOL ABUSE, IN REMISSION ALCOHOL ABUSE, IN REMISSIO N Diagnosis 12/24/2019 02:00:00 PM [facility] F41.9 Anxiety disorder, unspecified ANXIETY DISORDER, UNSPEC IFIED Diagnosis 12/24/2019 02:00:00 PM [facility] F10.21 Alcohol dependence, in remission ALCOHOL DEPENDE NCE, IN REMISSION Diagnosis 12/24/2019 02:00:00 PM [facility] Z71.3 Dietary counseling and surveillance DIETARY COUN SELING AND SURVEILLANCE Diagnosis 11/24/2019 09:54:00 AM [facility] G47.00 Insomnia, unspecified INSOMNIA, UNSPECIFIED Diagnosis 11/24/2019 09:54:00 AM EDT [facility] F32.9 Major depressive disorder, single episod e, unspecified MAJOR DEPRESSIVE DISORDER, SINGLE EPISODE, UNSPECIFIED Diagnosis 11/24/2019 09:54:00 AM EDT [facility] F41.9 Anxiety disorder, unspecified ANXIETY DISORDER, UNSPEC IFIED Diagnosis 11/24/2019 09:54:00 AM EDT [facility] Z86.19 Personal history of other infectious and parasitic diseases PERSONAL HISTORY OF OTHER INFECTIOUS AND PARASITIC DISEASES Diagnosis 07/2019 09:54:00 AM EDT [facility] R74.0 Nonspecific elevation of lev els of transaminase and lactic acid dehydrogenase [LDH] NONSPEC ELEV OF LEVELS OF TRANSAMNS & LA CTIC ACID DEHYDRGNSE Diagnosis 11/24/2019 09:54:00 AM EDT [facility] Z98.84 Bariatric surgery status BARIATRIC SURGERY STATUS Diag nosis 11/24/2019 09:54:00 AM EDT [facility] F17.210 Nicotine dependence, cigarettes, uncompl icated NICOTINE DEPENDENCE, CIGARETTES, UNCOMPLICATED Diagnosis 11/24/2019 09:54:00 AM EDT [facility] F10.20 Alcohol dependence, uncomplicated ALCOHOL DEPEND ENCE, UNCOMPLICATED Diagnosis 11/24/2019 09:54:00 AM EDT [facility] F34.1 Dysthymic disorder DYSTHYMIC DISORDER Diagnosis 03/2019 11:30:00 PM EDT [facility] K70.10 Alcoholic hepatitis without ascites ALCOHOLIC HE PATITIS WITHOUT ASCITES Diagnosis 11/20/2019 11:30:00 PM EDT [facility] I10 Essential (primary) hypertension ESSENTIAL (PRIMARY) H YPERTENSION Diagnosis 11/20/2019 11:30:00 PM EDT [facility] U07.1 COVID-19 COVID-19 Diagnosis 11/20/2019 11:30:00 PM ED T [facility] F10.230 Alcohol dependence with withdrawal, unco mplicated ALCOHOL DEPENDENCE WITH WITHDRAWAL, UNCOMPLICATED Diagnosis 11/20/2019 11:30:00 PM EDT [facility] 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, hypnotic, or anxiolytic use, u nspecified, uncomplicated SEDATIVE, HYPNOTIC, OR ANXIOLYTIC USE, UNSP, UNCOMPLICATED Diagnosis 11/20/2019 06:06:00 PM EDT [facility] U07.1 COVID-19 COVID-19 Diagnosis 11/20/2019 06:06:00 PM ED T [facility] F10.232 Alcohol dependence with withdrawal with perceptual disturbance ALCOHOL DEPENDENCE W WITHDRAWAL WITH PERCEPTUAL DISTURBANCE Diagnosis 06:06:00 PM EDT [facility] Z20.828 Contact with and (suspected) exposure to other viral communicable diseases CONTACT W AND EXPOSURE TO OTH VIRAL COMMUNICABLE DISEASES Di agnosis 11/20/2019 04:44:00 PM EDT [facility] F10.10 [id number] Alcohol use disorder, mild, abuse Problem 09/23/2020 12:00:00 AM EDT [facility] F33.2 [id number] Severe episode of re current major depressive disorder, without psychotic features Problem 04/21/2020 12:00:00 AM EST eCW1 ([facility]) F41.8 [id number] Depression with anxiety Problem 04/21/2020 1 2:00:00 AM EST eCW1 ([facility]) F51.04 [id number] Psychophysiological insomnia Problem 04/08/2020 12:00:00 AM EST eCW1 ([facility]) F17.200 [id number] Nicotine dependence with current use Prob darling 04/08/2020 12:00:00 AM EST eCW1 ([facility]) Surgeries/Procedures Procedure Description Date Indications Data Source(s) Injection, medroxyprogesterone acetate for contraceptive use , 150 mg 10/24/2020 12:00:00 AM EDT eCW1 ([facility]) OFFICE OUTPATIENT NEW 45 MINUTES 10/01/2020 12:00:00 A M EDT [facility] ([facility]) CLTX PHLNGL FX PROX/MIDDLE PX/F/T W/O MANJ EA 10/02/19 12:00:00 AM EDT [facility] ([facility]) Detoxification Services for Substance Abuse Treatment DETOXIFICATION SERVICES FOR SUBSTANCE ABUSE TREATMENT 09/12/2020 12:00:[address] [facility]. Naltrexone 380mg (Pt Supplied) 07/15/2020 12:00:00 AM EDT eCW1 ([facility]) Injection, medroxyprogesterone acetate for contraceptive use , 150 mg 07/15/2020 12:00:00 AM EDT [facility] ([facility]) Naltrexone 380mg (Pt Supplied) 05/30/2020 12:00:00 AM EST [facility] ([facility]) URINE TEST 04/21/2020 12:00:00 AM EST [facility] ([facility]) Naltrexone 380mg 04/21/2020 12:00:00 AM EST [facility] ([facility]) Injection, medroxyprogesterone acetate for contraceptive use , 150 mg 04/21/2020 12:00:00 AM EST [facility] ([facility]) ECG ROUTINE ECG W/LEAST 12 LDS W/I&R 04/21/2020 12:00: 00 AM [place] [address] ([facility]) Individual Counseling for Substance Abuse Treatment, C ontinuing Care INDIV ORE CRUSHING DUST COLLECTOR FOR SUBSTANCE ABUSE TREATMENT, CONTINUING CARE 03/29/2020 12:00:00 AM [facility] Detoxification Services for Substance Abuse Treatment DETOXIFICATION SERVICES FOR SUBSTANCE ABUSE TREATMENT 03/27/2020 12:00:00 AM [facility] Individual Counseling for Substance Abuse Treatment, C ognitive-Behavioral INDIV ORE CRUSHING DUST COLLECTOR FOR SUBSTANCE ABUSE, COGNITIVE BEHAVIORAL 11/25/2019 12:00:00 AM [facility] Group Counseling for Substance Abuse Treatment, Motiva tional Enhancement GROUP ORE CRUSHING DUST COLLECTOR FOR SUBSTANCE ABUSE, MOTIVATIONAL ENHANCE 11/25/2019 12:00:00 AM [facility] Group Counseling for Substance Abuse Treatment, Spirit ual GROUP COUNSELING FOR SUBSTANCE ABUSE TREATMENT, SPIRITUAL 11/25/2019 12:00:00 AM [facility] Group Counseling for Substance Abuse Treatment, Cognit corby-Behavioral GROUP ORE CRUSHING DUST COLLECTOR FOR SUBSTANCE ABUSE, COGNITIVE BEHAVIORAL 11/25/2019 12:00:00 AM [facility] [address] X-RAY EXAM CHEST 1 VIEW 11/20/2019 12:00:00 AM [facility] ECG ROUTINE ECG W/LEAST 12 LDS TRCG ONLY W/O I&R ELECTROCARD IOGRAM TRACING 11/20/2019 12:00:00 AM [facility] IADNA MYCOPLSM PNEUMONIAE AMPLIFIED PROBE TQ M.PNEUMON DNA A MP PROBE 11/20/2019 12:00:00 AM [facility] IADNA CHLAMYDIA PNEUMONIAE AMPLIFIED PROBE TQ CHYLMD PNEUM D NA AMP PROBE 11/20/2019 12:00:00 AM [facility] IADNA NOS AMPLIFIED PROBE TQ EACH ORGANISM DETECT AGENT NOS DNA AMP 11/20/2019 12:00:00 AM [facility] [address] RESP VIRUS 12-25 TARGETS 11/20/2019 12:00:00 AM [facility] URNLS DIP STICK/TABLET RGNT AUTO W/O MICROSCOPY URINALYSIS A UTO W/O SCOPE 11/20/2019 12:00:00 AM [facility] COLLECTION VENOUS BLOOD VENIPUNCTURE ROUTINE VENIPUNCTURE 12:00:00 AM [facility] BLOOD COUNT COMPLETE AUTO&AUTO DIFRNTL WBC COUNT COMPLETE CB C W/AUTO DIFF WBC 11/20/2019 12:00:00 AM [facility] [id number] DRUG SCREEN QUANTALCOHOLS 11/20/2019 12:00:00 AM [facility] [address] DRUG TEST PRSMV DIR OPT OBS 11/20/2019 12:00:00 AM [facility] URINE TEST VISUAL COLOR CMPRSN METHS URINE PREGNAN CY TEST 11/20/2019 12:00:00 AM [facility] TROPONIN QUANTITATIVE ASSAY OF TROPONIN QUANT 11/20/2019 12:00:00 A M [facility] COMPREHENSIVE METABOLIC PANEL COMPREHEN METABOLIC PANEL 03/2019 12:00:00 AM [facility] Injection, magnesium sulfate, per 500 mg 11/20/2019 12 :00:00 AM [facility] Infusion, normal saline solution , 1000 cc 11/20/2019 12:00:00 AM [facility] Injection, thiamine hcl, 100 mg 11/20/2019 12:00:00 AM [facility] THERAPEUTIC INJECTION IV PUSH EACH NEW DRUG TX/PRO/DX INJ NE W DRUG ADDON 11/20/2019 12:00:00 AM EDT [facility] THER PROPH/DX NJX IV PUSH SINGLE/1ST SBST/DRUG THER/PROPH/DI AG INJ IV PUSH 11/20/2019 12:00:00 AM EDT [facility] IV INFUSION HYDRATION EACH ADDITIONAL HOUR HYDRATE IV INFUSI ON ADD-ON 11/20/2019 12:00:00 AM [facility] EMERGENCY DEPT VISIT HIGH SEVERITY&THREAT FUNCJ EMERGENCY DE PT VISIT 11/20/2019 12:00:00 AM EDT [facility] Results ID Date Data Source [id number] 12/10/2020 06:31:00 PM EDT [facility] Name Value Range Interpretation Code Description Data Nataly rce(s) Supporting Document(s) SARS-CoV-2 (COVID 19) NEGATIVE - SARS-CoV-2 (COVID19) [facility] This lab was ordered by [facility] a nd reported by [facility]. ID Date Data Source [id number] 09/13/2020 03:48:00 PM EDT [facility]. Counselor Progress NotePatient NotePatie nt chose to leave Inpatient Detox Treatment at [facility] medical advice today. Patient was provided with contactinformation for aftercare treatment options, list of current local self-help meetings, community resources sheet, as well as contact informationfor the [facility] Emotional SupportLine available 11/10. Staff spoke with patient regarding the benefits ofcompleting treatment and risks of leaving prior to recommended discharge.Patient confirmed understanding, noted having no questions or concernsand reported feeling safe at time of discharge, denying suicidal andhomicidal ideation. Nursing Medicare Coordinator and Hospitalist were notified ofAMA. At the [...] rce(s) Supporting Document(s) ID Date Data Source [id number] 09/13/2020 03:13:00 PM EDT [facility]. Counselor Progress NotePatient NoteCOUNS SHELBY MEDEROS, MS, CASAC-T, COMPLETED THE SAFE-T ASSESSMENTWITH THE PATIENT (SEE IN CHART).Dictated on 09/13/201512 by Shelby CurtisTranscribed on 09/13/201512 by Shelby CurtisSign by Shelby Curtis on 09/13/201513Sign by: Shelby Curtis Name Value Range Interpretation Code Description Data Nataly rce(s) Supporting Document(s) ID Date Data Source [id number] 09/12/2020 02:00:00 PM EDT [facility] Name Value Range Interpretation Code Description Data Nataly rce(s) Supporting Document(s) SARS-CoV-2 (COVID-19) RNA [Presence] in Respiratory specimen by SELMA with probe detection Negative; No COVID-2 RNA detected by PCR. [facility] This lab was ordered by [facility] and reported by . ID Date Data Source [id number] 03/27/2020 01:04:00 PM [facility] spital Procedure Performed By: [facility] [address] [place] [address] Director: Latanya Zamarripa MD Mixed huang: Mixed huang, probable contamination. Name Value Range Interpretation Code Description Data Nataly rce(s) Supporting Document(s) ID Date Data Source [id number] 04/29/2020 01:30:00 PM [facility] Name Value Range Interpretation Code Description Data Nataly rce(s) Supporting Document(s) Vitamin B12 result 541 Normal (applies to non-numer ic results) [facility] SEE SCANNED REPORT ID Date Data Source [id number] 04/01/2020 10:39:00 PM EST [facility] Name Value Range Interpretation Code Description Data Nataly rce(s) Supporting Document(s) Vitamin D 1,25 result 60 pg/mL 18-78 Normal (applies to non-nu meric results) [facility] ADDITIONAL INFORMATIO N This test was developed and its performance characteristics determined by [facility] in a manner consistent with CLIA requirements. This test has not been cleared or approved by the U.S. Food and Drug Administration. Test Performed by: [facility] [address] [place] [address] Manufacturing Automation Engineer: Yves Enciso M.D. Ph.D.; CLIA# [id number] ID Date Data Source [id number] 03/26/2020 07:08:00 PM [facility] Value Range Interpretation Code Description Data Nataly rce(s) Supporting Document(s) Iron Level FE result 226 ug/dL 37-170 [facility] Test Performed By: [facility] [address] [place] [address] Director: Malaika Zamarripa MD ID Date Data Source [id number] 03/26/2020 07:08:00 PM [facility] Value Range Interpretation Code Description Data Nataly rce(s) Supporting Document(s) Ferritin result 138 ng/mL 6.2-137.0 Son[facility] pital Test Performed By: [facility] [address] [place] [address] Director: Malaika Zamarripa MD ID Date Data Source [id number] 03/26/2020 06:38:00 PM EST [facility] Value Range Interpretation Code Description Data Nataly rce(s) Supporting Document(s) Ferritin 138 ng/mL 6.2-137.0 Above high normal [facility] Test Performed By: [facility] [address] [place] [address] Director: Malaika Zamarripa MD ID Date Data Source [id number] 03/26/2020 06:38:00 PM EST [facility] Name Value Range Interpretation Code Description Data Nataly rce(s) Supporting Document(s) Iron FE Level 226 ug/dL 37-170 Above high normal [facility] Test Performed By: [facility] [address] [place] [address] Director: Malaika Zamarripa MD ID Date Data Source [id number] 03/26/2020 06:38:00 PM EST [facility] Value Range Interpretation Code Description Data Nataly rce(s) Supporting Document(s) Vitamin B12 541 pg/mL 193-986 Normal (applies to non-numeric resu lts) [facility] Test Performed By: [facility] [address] [place] [address] Director: Malaika Zamarripa MD ID Date Data Source [id number] 03/26/2020 05:53:00 AM [facility] Value Range Interpretation Code Description Data Nataly rce(s) Supporting Document(s) Bilirubin,Direct 0.05-0.20 Above high normal [facility] ID Date Data Source [id number] 03/26/2020 05:54:00 AM [facility] Name Value Range Interpretation Code Description Data Nataly rce(s) Supporting Document(s) Thyroid Stimulate Hormone TSH 0.358-3.74 Above high normal [facility] ID Date Data Source [id number] 03/26/2020 05:53:00 AM [facility] Name Value Range Interpretation Code Description Data Nataly rce(s) Supporting Document(s) Phosphorus 2.5-4.9 Normal (applies to non-numeric resul ts) [facility] ID Date Data Source [id number] 03/26/2020 05:53:00 AM [facility] Name Value Range Interpretation Code Description Data Nataly rce(s) Supporting Document(s) Sodium 135 mmol/L 136-145 Below low normal [facility] ospital Potassium 3.5-5.1 Normal (applies to non-numeric resul ts) [facility] Chloride 95 mmol/L 98-107 Below low normal [facility] spital Carbon Dioxide CO2 21-32 Normal (applies to non-numer ic results) [facility] Anion Gap 5.0-16.0 Normal (applies to non-numeric resul ts) [facility] BUN 5 mg/dL 7-18 Below low normal [facility] spital Creatinine,Serum 0.7-1.2 Normal (applies to non-numeric results) [facility] GFR >60 Normal (applies to non-numeric results) [facility] Glucose Level 90 mg/dL 60-99 Normal (applies to non-numeric re sults) [facility] Reference range is only applicable when patient is fasting Note the following drug interference: Sulfasalazine Sulfapyridine Can see falsely depressed Can see falsely elevated result with up to 17% results with up to 11% decrease in measurement increase in measurement Recommend patients be collected for this test prior to administration of either drug. Calcium 8.5-10.1 Normal (applies to non-numeric resul ts) [facility] Bilirubin,Total 0.1-1.9 Normal (applies to non-numeric results) [facility] SGOT(AST) 64 U/L 15-37 Above high normal [facility] ospital Note the following drug interference: Sulfasalazine Sulfapyridine Can see falsely depressed Can see falsely elevated result with up to 10% results with up to 10% decrease in measurement increase in measurement Recommend patients be collected for this test prior to administration of either drug. SGPT(ALT) 105 U/L 12-78 Above high normal [facility] ospital Note the following drug interference: Sulfasalazine Sulfapyridine Can see falsely depressed Can see falsely elevated result with up to 29% results with up to 10% decrease in measurement increase in measurement Recommend patients be collected for this test prior to administration of either drug. Alkaline Phosphatase 106 U/L 38-126 Normal (applies to non-num sue results) [facility] can increase Alkaline Phosp le vels up to 2 times the normal adult value. Normal values for children and adolescents are 2 to 3 times the normal adult value. Total Protein 6.0-8.2 Normal (applies to non-numeric re sults) [facility] Albumin Level 3.4-5.0 Normal (applies to non-numeric re sults) [facility] ID Date Data Source [id number] 03/26/2020 05:53:00 AM EST [facility] Name Value Range Interpretation Code Description Data Nataly rce(s) Supporting Document(s) Magnesium 1.8-2.4 Normal (applies to non-numeric resul ts) [facility] ID Date Data Source [id number] 03/26/2020 02:50:00 PM EST [facility] Name Value Range Interpretation Code Description Data Nataly rce(s) Supporting Document(s) CPK result 237 U/L 26-192 Soni [facility] Test Performed By: [facility] [address] [place] [address] Director: Malaika Zamarripa MD ID Date Data Source [id number] 03/26/2020 02:50:00 PM [facility] Name Value Range Interpretation Code Description Data Nataly rce(s) Supporting Document(s) Syphilis Serology result Nonreactive Normal (applies to non-numeric results) [facility] Test Performed By: [facility] [address] [place] [address] Director: Malaika Zamarripa MD ID Date Data Source [id number] 03/26/2020 01:59:00 PM EST [facility] Value Range Interpretation Code Description Data Nataly rce(s) Supporting Document(s) Syphilis Serology Nonreactive Normal (applies to non-numer ic results) [facility] Test Performed By: [facility] [address] [place] [address] Director: Malaika Zamarripa MD ID Date Data Source [id number] 03/26/2020 01:56:00 PM EST [facility] Name Value Range Interpretation Code Description Data Nataly rce(s) Supporting Document(s) CPK 237 U/L 26-192 Above high normal [facility] Test Performed By: [facility] [address] [place] [address] Director: Malaika Zamarripa MD ID Date Data Source [id number] 03/26/2020 11:41:00 AM [facility] Name Value Range Interpretation Code Description Data Nataly rce(s) Supporting Document(s) Reticulocyte Count 0.50-1.81 Normal (applies to non-numer ic results) [facility] ID Date Data Source [id number] 03/26/2020 05:28:00 AM [facility] Name Value Range Interpretation Code Description Data Nataly rce(s) Supporting Document(s) Ethanol Less than 10.0 Normal (applies to non-numeric r esults) [facility] ID Date Data Source [id number] 03/26/2020 05:02:00 AM [facility] Name Value Range Interpretation Code Description Data Nataly rce(s) Supporting Document(s) White Blood Count 3.5-10.5 Normal (applies to non-numeri c results) [facility] Red Blood Count 3.90-5.00 Below low normal [facility] Hemoglobin 12.0-15.5 Below low normal [facility]ital Hematocrit 34.9-44.5 Below low normal [facility] Mean Corpuscular Volume 81.2-95.1 Normal (applies to non- numeric results) [facility] Mean Corpuscular Hgb 25.6-32.2 Normal (applies to non-num sue results) [facility] Mean Corpuscular Hgb Conc 32.0-36.0 Normal (applies to no n-numeric results) [facility] Red Cell Distribution Width 11.9-15.5 Above high normal [facility] Platelet Count 149 x10 3/uL 150-450 Below low normal [facility] Mean Platelet Volume 9.4-12.4 Below low normal [facility] Neutrophils% (Auto) 31.0-71.0 Normal (applies to non-nume gucci results) [facility] Lymphocytes% (Auto) 20.0-55.0 Normal (applies to non-nume gucci results) [facility] Monocytes% (Auto) 4.0-12.0 Normal (applies to non-numeri c results) [facility] Eosinophils% (Auto) 1.0-8.0 Normal (applies to non-nume gucci results) [facility] Basophils% (Auto) 0.0-2.0 Normal (applies to non-numeri c results) [facility] Immature Granulocytes% (Auto) 0.0-2.0 Normal (racquel lies to non-numeric results) [facility] Neutrophils# (Auto) 1.50-6.20 Normal (applies to non-nume gucci results) [facility] Lymphocytes# (Auto) 1.20-4.00 Below low normal [facility] Monocytes# (Auto) 0.00-0.90 Normal (applies to non-numeri c results) [facility] Eosinophils# (Auto) 0.00-0.50 Normal (applies to non-nume gcuci results) [facility] Basophils# (Auto) 0.00-0.20 Normal (applies to non-numeri c results) [facility] Immature Granulocytes# (Auto) 0.00-7.00 No rmal (applies to non-numeric results) [facility] ID Date Data Source [id number] 04/02/2020 12:13:00 AM EST [facility] Name Value Range Interpretation Code Description Data Nataly rce(s) Supporting Document(s) Vitamin D 1,25 result 60 pg/mL 18-78 Normal (applies to non-nu meric results) [facility] ADDITIONAL INFORMATIO N This test was developed and its performance characteristics determined by [facility] in a manner consistent with CLIA requirements. This test has not been cleared or approved by the U.S. Food and Drug Administration. Test Performed by: [facility] [place] [address] Manufacturing Automation Engineer: Yves Enciso M.D. Ph.D.; CLIA# [id number] ID Date Data Source [id number] 03/28/2020 05:44:00 PM [facility] Name Value Range Interpretation Code Description Data Nataly rce(s) Supporting Document(s) Chlamydia,Urine Negative Normal (applies to non-numeric results) [facility] Test Performed By: [facility] [address] [place] [address] Director: Malaika Zamarripa MD . GC Urine Negative Normal (applies to non-numeric resul ts) [facility] Test Performed By: [facility] [address] [place] [address] Director: Malaika Zamarripa MD . Methodology: Second generation nucleic acid amplification. ID Date Data Source [id number] 03/27/2020 11:31:[address] [facility] Procedure Performed By: [facility] [address] [place] [address] Director: Latanya Zamarripa MD Name Value Range Interpretation Code Description Data Nataly rce(s) Supporting Document(s) Urine Culture Normal (applies to non-numeric re sults) [facility] ID Date Data Source [id number] 03/26/2020 06:59:00 AM [facility] Collected By: Nurse's Aide Initials: HR Collected By: Nurse's Aide Initials: HR Name Value Range Interpretation Code Description Data [facility] Supporting Document(s) RBC,Urine None Seen [facility] WBC,Urine None Seen [facility] Casts,Urine None Seen Normal (applies to non-numeric resu lts) [facility] Epithelial Cells,Urine None - [facility] Squamous Cells,Urine None Seen [facility] Bacteria,Urine None [facility]en [facility] Mucus,Urine None Seen [facility] ID Date Data Source [id number] 03/26/2020 06:59:00 AM [facility] Collected By: Nurse's Aide Initials: HR Collected By: Nurse's Aide Initials: HR Name Value Range Interpretation Code Description Data [facility] rce(s) Supporting Document(s) Color,Urine Colorl-Dk Y Normal (applies to non-numeric res ults) [facility] Clarity,Urine Clear Normal (applies to non-numeric re sults) [facility] Specific [place],Urine 1.005-1.030 Normal (applies to non- numeric results) [facility] pH,Urine 5.0-8.0 Normal (applies to non-numeric resul ts) [facility] Protein,Urine Negative [facility] Glucose,Urine Negative Normal (applies to non-numeric re sults) [facility] Ketones,Urine Negative Normal (applies to non-numeric re sults) [facility] Blood,Urine Negative Normal (applies to non-numeric resu lts) [facility] Bilirubin,Urine Negative Normal (applies to non-numeric results) [facility] Urobilinogen,Urine 0.2-1.0 Normal (applies to non-numer ic results) [facility] Leukocyte Esterase,Urine Negative [facility] Nitrite,Urine Negative Normal (applies to non-numeric re sults) [facility] ID Date Data Source [id number] 03/26/2020 06:30:00 AM EST [facility] Name Value Range Interpretation Code Description Data [facility] rce(s) Supporting Document(s) UDS Benzodiazepines Screen Negative [facility] UDS Cocaine Screen Negative Normal (applies to non-numer ic results) [facility] UDS Ampetamine Screen Negative Normal (applies to non-nu meric results) [facility] UDS Cannabinoids Screen Negative Normal (applies to non- numeric results) [facility] UDS Opiates Screen Negative Normal (applies to non-numer ic results) [facility] UDS Barbiturates Screen Negative Normal (applies to non- numeric results) [facility] Threshold Levels Benzodiazepine 200 ng/mL Cocaine 300 ng/mL Amphetamines 1000 ng/mL Cannabinoids (THC) 50 ng/mL Opiates 300 ng/mL Barbiturates 200 ng/mL All positive findings are presumptive and unconfirmed. Confirmation of positive results are performed only at request of provider. Unconfirmed results must not be used for non-medical purposes (i.e. preemployment and legal purposes) ID Date Data Source [id number] 03/28/2020 06:20:00 PM [facility] Name Value Range Interpretation Code Description Data Nataly rce(s) Supporting Document(s) Chlamydia,Urine result Negative Normal (applies to non-n umeric results) [facility] Test Performed By: [facility] [address] [place] [address] Director: Malaika Zamarripa MD . GC Urine result Negative Normal (applies to non-numeric results) [facility] Test Performed By: [facility] [address] [place] [address] Director: Mlaaika Zamarripa MD . Methodology: Second generation nucleic acid amplification. ID Date Data Source [id number] 03/26/2020 01:10:00 AM EST [facility] Name Value Range Interpretation Code Description Data Nataly rce(s) Supporting Document(s) SARS coronavirus 2 RNA [Presence] in Res piratory specimen by SELMA with probe detection NEGATIVE [facility] This lab was ordered by [facility] a nd reported by [facility]. ID Date Data Source [id number] 03/05/2020 03:31:00 PM EST [facility] Name Value Range Interpretation Code Description Data Nataly rce(s) Supporting Document(s) SARS coronavirus 2 RNA [Presence] in Res piratory specimen by SELMA with probe detection [facility] This lab was ordered by [facility] a nd reported by [facility]. ID Date Data Source [id number] 02/28/2020 07:24:00 AM EST [facility] Name Value Range Interpretation Code Description Data Nataly rce(s) Supporting Document(s) SARS coronavirus 2 RNA [Presence] in Res piratory specimen by SELMA with probe detection [facility] This lab was ordered by [facility] a nd reported by [facility]. ID Date Data Source [id number] 12/06/2019 11:03:00 AM EDT [facility] Name Value Range Interpretation Code Description Data Nataly rce(s) Supporting Document(s) Iron FE Level 45 ug/dL 37-170 Normal (applies to non-numeric re sults) [facility] Total Iron Binding Capacity 294 ug/dL 265-497 Norm al (applies to non-numeric results) [facility] %Iron Saturation 12.0-55.0 Normal (applies to non-numeric results) [facility] ID Date Data Source [id number] 12/06/2019 11:03:00 AM EDT [facility] Name Value Range Interpretation Code Description Data Nataly rce(s) Supporting Document(s) Vitamin B12 628 pg/mL 193-986 Normal (applies to non-numeric resu lts) [facility] ID Date Data Source [id number] 12/03/2019 10:39:00 AM EDT [facility] Name Value Range Interpretation Code Description Data Nataly rce(s) Supporting Document(s) Sodium 145 mmol/L 137-145 Normal (applies to non-numeric resul ts) [facility] Potassium 3.5-5.1 Normal (applies to non-numeric resul ts) [facility] Chloride 114 mmol/L 98-112 Above high normal [facility] Carbon Dioxide CO2 22.0-33.0 Normal (applies to non-numer ic results) [facility] Anion Gap 4.0-11.0 Normal (applies to non-numeric resul ts) [facility] BUN 6 mg/dL 7-17 Below low normal [facility] Creatinine 0.70-1.20 Below low normal [facility] GFR >60 Normal (applies to non-numeric results) [facility] Result based on MDRD formula. Glucose Level 67 mg/dL 74-[address] [facility] The reference range is only applicable w hen fasting. Calcium-Uncorrected 8.4-10.2 Normal (applies to non-nume gucci results) [facility] Corrected Calcium 8.4-10.2 Normal (applies to non-numeri c results) [facility] Bilirubin,Total 0.2-1.3 Normal (applies to non-numeric results) [facility] SGOT(AST) 34 U/L 14-36 Normal (applies to non-numeric resul ts) [facility] SGPT(ALT) 55 U/L 9-52 Above high normal [facility] Alkaline Phosphatase 91 U/L 38-126 Normal (applies to non-num sue results) [facility] can increase Alkaline Phosp le vels up to 2 times the normal adult value. Normal values for children and adolescents are 2 to 3 times the normal adult value. Total Protein 6.3-8.2 Normal (applies to non-numeric re sults) [facility] Albumin 3.5-5.0 Below low normal [facility] ID Date Data Source [id number] 11/25/2019 04:57:00 PM EDT [facility] Name Value Range Interpretation Code Description Data Nataly rce(s) Supporting Document(s) Respiratory specimen severe acute respir atory syndrome coronavirus 2 (SARS-CoV-2) RNA [facility] ital This lab was ordered by [facility] estela and reported by [facility]. ID Date Data Source [id number] 11/25/2019 04:57:00 PM EDT [facility] Name Value Range Interpretation Code Description Data Nataly rce(s) Supporting Document(s) SARS-CoV-2 RNA Negative Normal (applies to non-numeric r esults) [facility] Negative results should be treated as pr [...] Certificate of Accreditation. Factsheets for healthcare providers: https://www.fda.gov/media/454024/download Factsheets for patients: https://www.fda.gov/media/192355/download THIS IS A STATE REPORTABLE COMMUNICABLE DISEASE. Manual entry verified by Bonny Daley 11/25/19 165 ID Date Data Source [id number] 11/25/2019 10:30:[address] [facility] Name Value Range Interpretation Code Description Data Nataly rce(s) Supporting Document(s) Hep C Ab-T Test Nonreactive Normal (applies to non-numeric results) [facility] ID Date Data Source [id number] 11/25/2019 10:31:[address] [facility] Name Value Range Interpretation Code Description Data Nataly rce(s) Supporting Document(s) Hep Bs Ag Result T-Test Nonreactive Normal (applies to non -numeric results) [facility] ID Date Data Source [id number] 11/25/2019 10:31:[address] [facility] Name Value Range Interpretation Code Description Data Nataly rce(s) Supporting Document(s) Syphilis Serology Nonreactive Normal (applies to non-numer ic results) [facility] ID Date Data Source [id number] 11/25/2019 10:31:[address] [facility] Name Value Range Interpretation Code Description Data Nataly rce(s) Supporting Document(s) Vitamin D,Total (25OH) 30.0-100.0 Below low normal [facility] Reference Range: <10 ng/mL: Deficien t 10-30 ng/mL: Insufficient 30-100 ng/mL: Sufficient >100 ng/mL: Toxicity possible ID Date Data Source [id number] 11/25/2019 10:31:[address] [facility] Name Value Range Interpretation Code Description Data Nataly rce(s) Supporting Document(s) HAVM Nonreactive Normal (applies to non-numeric resu lts) [facility] ID Date Data Source [id number] 11/25/2019 09:47:00 AM EDT [facility] Name Value Range Interpretation Code Description Data Nataly rce(s) Supporting Document(s) Sodium 142 mmol/L 137-145 Normal (applies to non-numeric resul ts) [facility] Potassium 3.5-5.1 Normal (applies to non-numeric resul ts) [facility] Chloride 109 mmol/L 98-112 Normal (applies to non-numeric resul ts) [facility] Carbon Dioxide CO2 22.0-33.0 Normal (applies to non-numer ic results) [facility] Anion Gap 4.0-11.0 Normal (applies to non-numeric resul ts) [facility] BUN 5 mg/dL 7-17 Below low normal [facility] Creatinine 0.70-1.20 Below low normal [facility] GFR >60 Normal (applies to non-numeric results) [facility] Result based on MDRD formula. Glucose Level 130 mg/dL 74-99 Above high normal [facility] The reference range is only applicable w hen fasting. Calcium-Uncorrected 8.4-10.2 Normal (applies to non-nume gucci results) [facility] Corrected Calcium 8.4-10.2 Normal (applies to non-numeri c results) [facility] Bilirubin,Total 0.2-1.3 Normal (applies to non-numeric results) [facility] Bilirubin,Direct 0.0-0.3 Normal (applies to non-numeric results) [facility] SGOT(AST) 61 U/L 14-36 Above high normal [facility] SGPT(ALT) 71 U/L 9-52 Above high normal [facility] Alkaline Phosphatase 165 U/L 38-126 Above high normal [facility] can increase Alkaline Phosp le vels up to 2 times the normal adult value. Normal values for children and adolescents are 2 to 3 times the normal adult value. CPK 47 U/L 26-192 Normal (applies to non-numeric resul ts) [facility] Total Protein 6.3-8.2 Normal (applies to non-numeric re sults) [facility] Albumin 3.5-5.0 Below low normal [facility] Thyroid Stimulate Hormone TSH 0.358-3.740 No rmal (applies to non-numeric results) [facility] ID Date Data Source [id number] 11/25/2019 09:47:00 AM EDT [facility] Name Value Range Interpretation Code Description Data Nataly rce(s) Supporting Document(s) Magnesium 1.80-2.40 Normal (applies to non-numeric resul ts) [facility] ID Date Data Source [id number] 11/25/2019 09:47:00 AM EDT [facility] Name Value Range Interpretation Code Description Data Nataly rce(s) Supporting Document(s) C-Reactive Protein,Wide Range <3.00 Normal (applies t o non-numeric results) [facility] ID Date Data Source [id number] 11/25/2019 09:20:[address] [facility] Name Value Range Interpretation Code Description Data Nataly rce(s) Supporting Document(s) White Blood Count 4.8-10.8 Normal (applies to non-numeri c results) [facility] Red Blood Count 3.68-5.22 Normal (applies to non-numeric results) [facility] Hemoglobin 11.2-15.7 Normal (applies to non-numeric resul ts) [facility] Hematocrit 34.1-44.9 Normal (applies to non-numeric resul ts) [facility] Mean Corpuscular Volume 81-99 Normal (applies to non- numeric results) [facility] Mean Corpuscular Hemoglobin 27.0-33.0 Normal (appli es to non-numeric results) [facility] Mean Corpuscular HGB Conc 32.0-36.0 Normal (applies to no n-numeric results) [facility] Red Cell Distribution Width 11.5-14.5 Above high normal [facility] Platelet Count 250 X10 3/uL 130-450 Normal (applies to non-numeric results) [facility] Mean Platelet Volume 9.5-12.7 Below low normal [facility] Imm Grans% (AUTO) 1 % 0-2 Normal (applies to non-numeri c results) [facility] Neutrophils % (AUTO) 56 % 40-75 Normal (applies to non-num sue results) [facility] Lymphocytes % (AUTO) 31 % 21-46 Normal (applies to non-num sue results) [facility] Monocytes % (AUTO) 11 % 5-12 Normal (applies to non-numer ic results) [facility] Eosinophils % (AUTO) 1 % 1-5 Normal (applies to non-num sue results) [facility] Basophils % (AUTO) 1 % 0-1 Normal (applies to non-numer ic results) [facility] Imm Grans# (AUTO) 0.0-0.5 Normal (applies to non-numeri c results) [facility] Neutrophils # (AUTO) 1.5-8.1 Normal (applies to non-num sue results) [facility] Lymphocytes # (AUTO) 1.0-3.1 Normal (applies to non-num sue results) [facility] Monocytes # (AUTO) 0.2-1.3 Normal (applies to non-numer ic results) [facility] Eosinophils# (AUTO) 0.0-0.5 Normal (applies to non-nume gucci results) [facility] Basophils # (AUTO) 0.0-0.1 Normal (applies to non-numer ic results) [facility] ID Date Data Source [id number] 11/24/2019 01:26:[address] [facility] Name Value Range Interpretation Code Description Data Nataly rce(s) Supporting Document(s) Opiate Screen,Urine Negative Normal (applies to non-nume gucci results) [facility] Amphetamine Screen,Urine Negative Normal (applies to non -numeric results) [facility] Benzodiazepines Scrn,Ur result Negative Son[facility] Cocaine Screen,Urine Negative Normal (applies to non-num sue results) [facility] Methadone Screen,Urine Negative Normal (applies to non-n umeric results) [facility] Cannabinoid Screen, Ur Negative Normal (applies to non-n umeric results) [facility] Therapeutic Drug Ranges for Emergency an d Rehabilitation Threshold Levels (ng/mL) Cocaine 300 Opiates 300 Cannabinoids 50 Barbiturates 200 Benzodiazepine 200 Methadone 300 Amphetamines 1000 All positive findings are presumptive and unconfirmed. Confirmation of positive results are performed only at request of provider. Unconfirmed results must not be used for non-medical purposes (i.e. pre-employment and legal purposes) ID Date Data Source [id number] 11/24/2019 01:12:[address] [facility] Name Value Range Interpretation Code Description Data Nataly rce(s) Supporting Document(s) Color,Urine Yellow [facility] pital Clarity,Urine Clear Normal (applies to non-numeric re sults) [facility] Specific [place],Urine 1.001-1.030 Normal (applies to non- numeric results) [facility] PH,Urine 5.0-8.0 Normal (applies to non-numeric resul ts) [facility] Protein,Urine Negative Normal (applies to non-numeric re sults) [facility] Glucose,Urine (UA) Negative Normal (applies to non-numer ic results) [facility] Ketones,Urine Negative Normal (applies to non-numeric re sults) [facility] Blood,Urine Negative Normal (applies to non-numeric resu lts) [facility] Bilirubin,Urine Negative Normal (applies to non-numeric results) [facility] Urobilinogen,Urine Norm 0.2-1 Normal (applies to non-numer ic results) [facility] Leukocyte Esterase,Urine Negative [facility] Nitrite,Urine Negative Normal (applies to non-numeric re sults) [facility] ID Date Data Source [id number] 11/24/2019 01:12:[address] [facility] Name Value Range Interpretation Code Description Data Nataly rce(s) Supporting Document(s) RBC,Auto Urine 0-2 Normal (applies to non-numeric r esults) [facility] WBC Urine Auto 0-10 Normal (applies to non-numeric r esults) [facility] Casts,Hyaline,Urine Auto 0-2 Normal (applies to non -numeric results) [facility] Bacteria Urine Auto None Seen Normal (applies to non-nume gucci results) [facility] Epithelial Cell Ur Auto None-Few Normal (applies to non- numeric results) [facility] ID Date Data Source [id number] 11/24/2019 01:12:[address] [facility] Name Value Range Interpretation Code Description Data Nataly rce(s) Supporting Document(s) Urine HCG Negative Normal (applies to non-numeric resul ts) [facility] ID Date Data Source [id number] 11/23/2019 09:53:00 AM EDT [facility] Name Value Range Interpretation Code Description Data Nataly rce(s) Supporting Document(s) Respiratory specimen severe acute respir atory syndrome coronavirus 2 (SARS-CoV-2) RNA [facility] ital This lab was ordered by [facility] estela and reported by [facility]. ID Date Data Source [id number] 11/23/2019 09:53:00 AM EDT [facility] Name Value Range Interpretation Code Description Data Nataly rce(s) Supporting Document(s) SARS-CoV-2 RNA Negative Normal (applies to non-numeric r esults) [facility] Negative results should be treated as pr [...] Certificate of Accreditation. Factsheets for healthcare providers: https://www.fda.gov/media/186359/download Factsheets for patients: https://www.fda.gov/media/708675/download THIS IS A STATE REPORTABLE COMMUNICABLE DISEASE. Manual entry verified by Gabriel Cabello 11/23/19 0952 ID Date Data Source [id number] 11/23/2019 09:47:00 AM EDT [facility] Name Value Range Interpretation Code Description Data Nataly rce(s) Supporting Document(s) Sodium 141 mmol/L 137-145 Normal (applies to non-numeric resul ts) [facility] Potassium 3.5-5.1 Normal (applies to non-numeric resul ts) [facility] Chloride 110 mmol/L 98-112 Normal (applies to non-numeric resul ts) [facility] Carbon Dioxide CO2 22.0-33.0 Normal (applies to non-numer ic results) [facility] Anion Gap 4.0-11.0 Below low normal [facility] BUN 3 mg/dL 7-17 Below low normal [facility] Creatinine 0.70-1.20 Below low normal [facility] GFR >60 Normal (applies to non-numeric results) [facility] Result based on MDRD formula. Glucose Level 91 mg/dL 74-99 Normal (applies to non-numeric re sults) [facility] The reference range is only applicable w hen fasting. Calcium-Uncorrected 8.4-10.2 Normal (applies to non-nume gucci results) [facility] Corrected Calcium 8.4-10.2 Normal (applies to non-numeri c results) [facility] Bilirubin,Total 0.2-1.3 Normal (applies to non-numeric results) [facility] SGOT(AST) 75 U/L 14-36 Above high normal [facility] SGPT(ALT) 68 U/L 9-52 Above high normal [facility] Alkaline Phosphatase 181 U/L 38-126 Above high normal [facility] can increase Alkaline Phosp le vels up to 2 times the normal adult value. Normal values for children and adolescents are 2 to 3 times the normal adult value. Total Protein 6.3-8.2 Normal (applies to non-numeric re sults) [facility] Albumin 3.5-5.0 Below low normal [facility] ID Date Data Source [id number] 11/23/2019 09:47:00 AM EDT [facility] Name Value Range Interpretation Code Description Data Nataly rce(s) Supporting Document(s) C-Reactive Protein,Wide Range <3.00 Normal (applies t o non-numeric results) [facility] ID Date Data Source [id number] 11/23/2019 09:34:00 AM EDT [facility] Name Value Range Interpretation Code Description Data Nataly rce(s) Supporting Document(s) White Blood Count 4.8-10.8 Normal (applies to non-numeri c results) [facility] Red Blood Count 3.68-5.22 Normal (applies to non-numeric results) [facility] Hemoglobin 11.2-15.7 Normal (applies to non-numeric resul ts) [facility] Hematocrit 34.1-44.9 Normal (applies to non-numeric resul ts) [facility] Mean Corpuscular Volume 81-99 Normal (applies to non- numeric results) [facility] Mean Corpuscular Hemoglobin 27.0-33.0 Normal (appli es to non-numeric results) [facility] Mean Corpuscular HGB Conc 32.0-36.0 Normal (applies to no n-numeric results) [facility] Red Cell Distribution Width 11.5-14.5 Above high normal [facility] Platelet Count 264 X10 3/uL 130-450 Normal (applies to non-numeric results) [facility] Mean Platelet Volume 9.5-12.7 Normal (applies to non-num sue results) [facility] Imm Grans% (AUTO) 0 % 0-2 Normal (applies to non-numeri c results) [facility] Neutrophils % (AUTO) 33 % 40-75 Below low normal [facility] Lymphocytes % (AUTO) 54 % 21-46 Above high normal [facility] Monocytes % (AUTO) 10 % 5-12 Normal (applies to non-numer ic results) [facility] Eosinophils % (AUTO) 2 % 1-5 Normal (applies to non-num sue results) [facility] Basophils % (AUTO) 1 % 0-1 Normal (applies to non-numer ic results) [facility] Imm Grans# (AUTO) 0.0-0.5 Normal (applies to non-numeri c results) [facility] Neutrophils # (AUTO) 1.5-8.1 Normal (applies to non-num sue results) [facility] Lymphocytes # (AUTO) 1.0-3.1 Normal (applies to non-num sue results) [facility] Monocytes # (AUTO) 0.2-1.3 Normal (applies to non-numer ic results) [facility] Eosinophils# (AUTO) 0.0-0.5 Normal (applies to non-nume gucci results) [facility] Basophils # (AUTO) 0.0-0.1 Normal (applies to non-numer ic results) [facility] ID Date Data Source [id number] 11/22/2019 08:30:00 AM EDT [facility] Name Value Range Interpretation Code Description Data Nataly rce(s) Supporting Document(s) D-Dimer Quant 677 ng/mLFEU <500 PH [facility] ADELA SCHMID read back critical informa tion 11/22/19 0829 [email or web address] Positive for D-Dimer. DVT/PE or DIC may be present. D-Dimer is an exclusionary test and is used in conjunction with a clinical pretest probability (PTP) assessment model to exclude DVT and PE. Consider further diagnostic studies to confirm diagnosis. ID Date Data Source [id number] 11/22/2019 07:58:00 AM EDT [facility] MB if CPK is elevated? N MB if CPK is elevated? N MB if CPK is elevated? N MB if CPK is elevated? N MB if CPK is elevated? N MB if CPK is elevated? N Name Value Range Interpretation Code Description Data Nataly rce(s) Supporting Document(s) Sodium 143 mmol/L 137-145 Normal (applies to non-numeric resul ts) [facility] Potassium 3.5-5.1 Normal (applies to non-numeric resul ts) [facility] Chloride 110 mmol/L 98-112 Normal (applies to non-numeric resul ts) [facility] Carbon Dioxide CO2 22.0-33.0 Normal (applies to non-numer ic results) [facility] Anion Gap 4.0-11.0 Below low normal [facility] BUN 2 mg/dL 7-17 Below low normal [facility] Creatinine 0.70-1.20 Below low normal [facility] GFR >60 Normal (applies to non-numeric results) [facility] Result based on MDRD formula. Glucose Level 93 mg/dL 74-99 Normal (applies to non-numeric re sults) [facility] The reference range is only applicable w hen fasting. Calcium-Uncorrected 8.4-10.2 Below low normal [facility] Corrected Calcium 8.4-10.2 Normal (applies to non-numeri c results) [facility] ID Date Data Source [id number] 11/22/2019 07:58:00 AM EDT [facility] MB if CPK is elevated? N MB if CPK is elevated? N MB if CPK is elevated? N MB if CPK is elevated? N MB if CPK is elevated? N MB if CPK is elevated? N Name Value Range Interpretation Code Description Data Nataly rce(s) Supporting Document(s) Phosphorus 2.5-4.9 Normal (applies to non-numeric resul ts) [facility] ID Date Data Source [id number] 11/22/2019 07:58:00 AM EDT [facility] MB if CPK is elevated? N MB if CPK is elevated? N MB if CPK is elevated? N MB if CPK is elevated? N MB if CPK is elevated? N MB if CPK is elevated? N Name Value Range Interpretation Code Description Data Nataly rce(s) Supporting Document(s) Magnesium 1.80-2.40 Normal (applies to non-numeric resul ts) [facility] ID Date Data Source [id number] 11/22/2019 07:58:00 AM EDT [facility] MB if CPK is elevated? N MB if CPK is elevated? N MB if CPK is elevated? N MB if CPK is elevated? N MB if CPK is elevated? N MB if CPK is elevated? N Name Value Range Interpretation Code Description Data Nataly rce(s) Supporting Document(s) Ferritin 175 ng/mL 6.2-137.0 Above high normal [facility] ID Date Data Source [id number] 11/22/2019 07:58:00 AM EDT [facility] MB if CPK is elevated? N MB if CPK is elevated? N MB if CPK is elevated? N MB if CPK is elevated? N MB if CPK is elevated? N MB if CPK is elevated? N Name Value Range Interpretation Code Description Data Nataly rce(s) Supporting Document(s) LDH 188 U/L 84-246 Normal (applies to non-numeric resul ts) [facility] ID Date Data Source [id number] 11/22/2019 07:58:00 AM EDT [facility] MB if CPK is elevated? N MB if CPK is elevated? N MB if CPK is elevated? N MB if CPK is elevated? N MB if CPK is elevated? N MB if CPK is elevated? N Name Value Range Interpretation Code Description Data Nataly rce(s) Supporting Document(s) CPK 71 U/L 26-192 Normal (applies to non-numeric resul ts) [facility] ID Date Data Source [id number] 11/22/2019 07:44:00 AM EDT [facility] Name Value Range Interpretation Code Description Data Nataly rce(s) Supporting Document(s) White Blood Count 4.8-10.8 Below low normal [facility] Red Blood Count 3.68-5.22 Normal (applies to non-numeric results) [facility] Hemoglobin 11.2-15.7 Normal (applies to non-numeric resul ts) [facility] Hematocrit 34.1-44.9 Normal (applies to non-numeric resul ts) [facility] Mean Corpuscular Volume 81-99 Normal (applies to non- numeric results) [facility] Mean Corpuscular Hemoglobin 27.0-33.0 Normal (appli es to non-numeric results) [facility] Mean Corpuscular HGB Conc 32.0-36.0 Normal (applies to no n-numeric results) [facility] Red Cell Distribution Width 11.5-14.5 Normal (appli es to non-numeric results) [facility] Platelet Count 264 X10 3/uL 130-450 Normal (applies to non-numeric results) [facility] Mean Platelet Volume 9.5-12.7 Normal (applies to non-num sue results) [facility] Imm Grans% (AUTO) 0 % 0-2 Normal (applies to non-numeri c results) [facility] Neutrophils % (AUTO) 38 % 40-75 Below low normal [facility] Lymphocytes % (AUTO) 51 % 21-46 Above high normal [facility] Monocytes % (AUTO) 8 % 5-12 Normal (applies to non-numer ic results) [facility] Eosinophils % (AUTO) 2 % 1-5 Normal (applies to non-num sue results) [facility] Basophils % (AUTO) 1 % 0-1 Normal (applies to non-numer ic results) [facility] Imm Grans# (AUTO) 0.0-0.5 Normal (applies to non-numeri c results) [facility] Neutrophils # (AUTO) 1.5-8.1 Normal (applies to non-num sue results) [facility] Lymphocytes # (AUTO) 1.0-3.1 Normal (applies to non-num sue results) [facility] Monocytes # (AUTO) 0.2-1.3 Normal (applies to non-numer ic results) [facility] Eosinophils# (AUTO) 0.0-0.5 Normal (applies to non-nume gucci results) [facility] Basophils # (AUTO) 0.0-0.1 Normal (applies to non-numer ic results) [facility] ID Date Data Source [id number] 11/21/2019 10:48:00 AM EDT [facility] Name Value Range Interpretation Code Description Data Nataly rce(s) Supporting Document(s) Sodium 139 mmol/L 137-145 Normal (applies to non-numeric resul ts) [facility] Potassium 3.5-5.1 Normal (applies to non-numeric resul ts) [facility] Chloride 107 mmol/L 98-112 Normal (applies to non-numeric resul ts) [facility] Carbon Dioxide CO2 22.0-33.0 Normal (applies to non-numer ic results) [facility] Anion Gap 4.0-11.0 Normal (applies to non-numeric resul ts) [facility] BUN 5 mg/dL 7-17 Below low normal [facility] Creatinine 0.70-1.20 Below low normal [facility] GFR >60 Normal (applies to non-numeric results) [facility] Result based on MDRD formula. Glucose Level 105 mg/dL 74-99 Above high normal [facility] The reference range is only applicable w hen fasting. Calcium-Uncorrected 8.4-10.2 Below low normal [facility] Corrected Calcium 8.4-10.2 Normal (applies to non-numeri c results) [facility] Bilirubin,Total 0.2-1.3 Normal (applies to non-numeric results) [facility] SGOT(AST) 97 U/L 14-36 Above high normal [facility] SGPT(ALT) 68 U/L 9-52 Above high normal [facility] Alkaline Phosphatase 229 U/L 38-126 Above high normal [facility] can increase Alkaline Phosp le vels up to 2 times the normal adult value. Normal values for children and adolescents are 2 to 3 times the normal adult value. Total Protein 6.3-8.2 Normal (applies to non-numeric re sults) [facility] Albumin 3.5-5.0 Below low normal [facility] ID Date Data Source [id number] 11/21/2019 10:48:00 AM EDT [facility] Name Value Range Interpretation Code Description Data Nataly rce(s) Supporting Document(s) Phosphorus 2.5-4.9 Below low normal [facility] ID Date Data Source [id number] 11/21/2019 10:48:00 AM EDT [facility] Name Value Range Interpretation Code Description Data Nataly rce(s) Supporting Document(s) Magnesium 1.80-2.40 Normal (applies to non-numeric resul ts) [facility] ID Date Data Source [id number] 11/21/2019 10:48:00 AM EDT [facility] Name Value Range Interpretation Code Description Data Nataly rce(s) Supporting Document(s) Ferritin 263 ng/mL 6.2-137.0 Above high normal [facility] ID Date Data Source [id number] 11/21/2019 10:48:00 AM EDT [facility] Name Value Range Interpretation Code Description Data Nataly rce(s) Supporting Document(s) LDH 233 U/L 84-246 Normal (applies to non-numeric resul ts) [facility] ID Date Data Source [id number] 11/21/2019 10:48:00 AM EDT [facility] Name Value Range Interpretation Code Description Data Nataly rce(s) Supporting Document(s) C-Reactive Protein,Wide Range <3.00 Above high normal [facility] ID Date Data Source [id number] 11/21/2019 10:07:00 AM EDT [facility] Name Value Range Interpretation Code Description Data Nataly rce(s) Supporting Document(s) White Blood Count 4.8-10.8 Below low normal [facility] Red Blood Count 3.68-5.22 Normal (applies to non-numeric results) [facility] Hemoglobin 11.2-15.7 Normal (applies to non-numeric resul ts) [facility] Hematocrit 34.1-44.9 Normal (applies to non-numeric resul ts) [facility] Mean Corpuscular Volume 81-99 Normal (applies to non- numeric results) [facility] Mean Corpuscular Hemoglobin 27.0-33.0 Normal (appli es to non-numeric results) [facility] Mean Corpuscular HGB Conc 32.0-36.0 Normal (applies to no n-numeric results) [facility] Red Cell Distribution Width 11.5-14.5 Normal (appli es to non-numeric results) [facility] Platelet Count 276 X10 3/uL 130-450 Normal (applies to non-numeric results) [facility] Mean Platelet Volume 9.5-12.7 Normal (applies to non-num sue results) [facility] Imm Grans% (AUTO) 0 % 0-2 Normal (applies to non-numeri c results) [facility] Neutrophils % (AUTO) 46 % 40-75 Normal (applies to non-num sue results) [facility] Lymphocytes % (AUTO) 43 % 21-46 Normal (applies to non-num sue results) [facility] Monocytes % (AUTO) 8 % 5-12 Normal (applies to non-numer ic results) [facility] Eosinophils % (AUTO) 3 % 1-5 Normal (applies to non-num sue results) [facility] Basophils % (AUTO) 1 % 0-1 Normal (applies to non-numer ic results) [facility] Imm Grans# (AUTO) 0.0-0.5 Normal (applies to non-numeri c results) [facility] Neutrophils # (AUTO) 1.5-8.1 Normal (applies to non-num sue results) [facility] Lymphocytes # (AUTO) 1.0-3.1 Normal (applies to non-num sue results) [facility] Monocytes # (AUTO) 0.2-1.3 Normal (applies to non-numer ic results) [facility] Eosinophils# (AUTO) 0.0-0.5 Normal (applies to non-nume gucci results) [facility] Basophils # (AUTO) 0.0-0.1 Normal (applies to non-numer ic results) [facility] ID Date Data Source [id number] 11/20/2019 07:35:00 PM EDT [facility] Name Value Range Interpretation Code Description Data Nataly rce(s) Supporting Document(s) Ethanol Less than 10.0 Normal (applies to non-numeric r esults) [facility] ID Date Data Source [id number] 11/20/2019 07:11:00 PM [facility] Name Value Range Interpretation Code Description Data Nataly rce(s) Supporting Document(s) UDS Phencyclidine Screen Negative Normal (applies to non -numeric results) [facility] UDS Benzodiazepines Screen Negative [facility] UDS Cocaine Screen Negative Normal (applies to non-numer ic results) [facility] UDS Ampetamine Screen Negative Normal (applies to non-nu meric results) [facility] UDS Cannabinoids Screen Negative Normal (applies to non- numeric results) [facility] UDS Opiates Screen Negative Normal (applies to non-numer ic results) [facility] UDS Barbiturates Screen Negative [facility] UDS Tricyclic Screen Negative Normal (applies to non-num sue results) [facility] Therapeutic Drug Ranges for Emergency Threshold Levels [...] treatment purposes only. ID Date Data Source [id number] 11/20/2019 07:05:00 PM EDT [facility] Name Value Range Interpretation Code Description Data Nataly rce(s) Supporting Document(s) Color,Urine Colorl-Dk Y Normal (applies to non-numeric res ults) [facility] Clarity,Urine Clear Normal (applies to non-numeric re sults) [facility] Specific [place],Urine 1.005-1.030 Normal (applies to non- numeric results) [facility] pH,Urine 5.0-8.0 Normal (applies to non-numeric resul ts) [facility] Protein,Urine Negative Normal (applies to non-numeric re sults) [facility] Glucose,Urine Negative Normal (applies to non-numeric re sults) [facility] Ketones,Urine Negative [facility],Urine Negative Normal (applies to non-numeric resu lts) [facility] Bilirubin,Urine Negative Normal (applies to non-numeric results) [facility] Urobilinogen,Urine 0.2-1.0 Normal (applies to non-numer ic results) [facility] Leukocyte Esterase,Urine Negative Normal (applies to non -numeric results) [facility] Nitrite,Urine Negative Normal (applies to non-numeric re sults) [facility] ID Date Data Source [id number] 11/20/2019 07:05:00 PM EDT [facility] Name Value Range Interpretation Code Description Data Nataly rce(s) Supporting Document(s) HCG,Ur Negative Normal (applies to non-numeric results) [facility] ID Date Data Source [id number] 11/20/2019 07:35:00 PM EDT [facility] Name Value Range Interpretation Code Description Data Nataly rce(s) Supporting Document(s) Sodium 135 mmol/L 136-145 Below low normal [facility] Potassium 3.5-5.1 Normal (applies to non-numeric resul ts) [facility] Chloride 98 mmol/L 98-107 Normal (applies to non-numeric resul ts) [facility] Carbon Dioxide CO2 21-32 Normal (applies to non-numer ic results) [facility] Anion Gap 5.0-16.0 Normal (applies to non-numeric resul ts) [facility] BUN 5 mg/dL 7-18 Below low normal [facility] Creatinine,Serum 0.7-1.2 Below low normal [facility] GFR >60 Normal (applies to non-numeric results) [facility] Glucose Level 72 mg/dL 60-99 Normal (applies to non-numeric re sults) [facility] Reference range is only applicable when patient is fasting Note the following drug interference: Sulfasalazine Sulfapyridine Can see falsely depressed Can see falsely elevated result with up to 17% results with up to 11% decrease in measurement increase in measurement Recommend patients be collected for this test prior to administration of either drug. Calcium 8.5-10.1 Below low normal [facility] sp[facility] Bilirubin,Total 0.1-1.9 Normal (applies to non-numeric results) [facility] SGOT(AST) 91 U/L 15-37 Above high normal [facility] Note the following drug interference: Sulfasalazine Sulfapyridine Can see falsely depressed Can see falsely elevated result with up to 10% results with up to 10% decrease in measurement increase in measurement Recommend patients be collected for this test prior to administration of either drug. SGPT(ALT) 82 U/L 12-78 Above high normal [facility] Note the following drug interference: Sulfasalazine Sulfapyridine Can see falsely depressed Can see falsely elevated result with up to 29% results with up to 10% decrease in measurement increase in measurement Recommend patients be collected for this test prior to administration of either drug. Alkaline Phosphatase 249 U/L 38-126 Above high normal [facility] can increase Alkaline Phosp le vels up to 2 times the normal adult value. Normal values for children and adolescents are 2 to 3 times the normal adult value. Total Protein 6.0-8.2 Normal (applies to non-numeric re sults) [facility] Albumin Level 3.4-5.0 Below low normal [facility] ID Date Data Source [id number] 11/20/2019 07:35:00 PM EDT [facility] Name Value Range Interpretation Code Description Data Nataly rce(s) Supporting Document(s) Troponin I 0.000-0.056 Normal (applies to non-numeric resu lts) [facility] ID Date Data Source [id number] 11/21/2019 09:50:00 AM [facility] Imaging Services Department Imaging Report [address] [place] [address] %(RAD)RES..[email or web address].filter("line") Name: TAI ARAYA : 1985 Age/Sex: 33F Ordering Provider: JUDITH Foster Med Rec #: [id number] Reg Status: [facility] Room #: Date of Service: 11/20/19 Report Number: [id number] cc:PCP None Send Report To: [id number] XRP/XR Chest Xray Portable Reason for exam: [...] Date/Time: 11/20/19 1858 Transcribed Date/Time: 11/21/19 0950 Engine Hostler: ZANA Name Value Range Interpretation Code Description Data Nataly rce(s) Supporting Document(s) ID Date Data Source [id number] 11/20/2019 05:58:00 PM EDT [facility] Name Value Range Interpretation Code Description Data Nataly rce(s) Supporting Document(s) Respiratory specimen severe acute respir atory syndrome coronavirus 2 (SARS-CoV-2) RNA [facility] This lab was ordered by [place] and reported by . ID Date Data Source [id number] 11/20/2019 05:57:00 PM EDT [facility] First test? NOEmployed in healthcare? NOSymptomatic per CDC? YESHospitalized? YESICU? NOResident in congregated care? ex penitentiary, [facility] NO? NO Name Value Range Interpretation Code Description Data Nataly rce(s) Supporting Document(s) SARS-CoV-2 Not Detect Alej[facility] l Positive for detection of SARS-CoV-2. Po sitive results are indicative of active infection with SARS-CoV-2 but do not rule out bacterial infection or co- infection with other viruses. Testing was performed using the [employer] real-time nested multiplexed PCR Respiratory Panel 2.1 [...] Range: None detected ID Date Data Source [id number] 11/06/2019 10:25:00 PM EDT [facility] Name Value Range Interpretation Code Description Data Nataly rce(s) Supporting Document(s) SARS coronavirus 2 RNA [facility] This lab was ordered by [facility] and reported by [facility]. Procedure Social History Code Duration Value Status Description Data Source(s ) Smoking 09/30/2020 12:00:00 AM EDT Current Smoker completed Curre nt Smoker [facility] Smoking 09/30/2020 12:00:00 AM EDT Current Smoker completed Curre nt Smoker eCW1 ([facility]) Smoking 09/30/2020 12:00:00 AM EDT Current Smoker completed Curre nt Smoker eCW1 ([facility]) Smoking 09/30/2020 12:00:00 AM EDT Current Smoker completed Curre nt Smoker eCW1 ([facility]) Smoking 09/30/2020 12:00:00 AM EDT Current Smoker completed Curre nt Smoker eCW1 ([facility]) Smoking 07/03/2020 12:00:00 AM EDT Current Smoker completed Curre nt Smoker eCW1 ([facility]) Smoking 07/03/2020 12:00:00 AM EDT Current Smoker completed Curre nt Smoker eCW1 ([facility]) Smoking 07/03/2020 12:00:00 AM EDT Current Smoker completed Curre nt Smoker eCW1 ([facility]) Smoking 07/03/2020 12:00:00 AM EDT Current Smoker completed Curre nt Smoker eCW1 ([facility]) Smoking 05/30/2020 12:00:00 AM EST Current Smoker completed Curre nt Smoker eCW1 ([facility]) Smoking 04/21/2020 12:00:00 AM EST Current Smoker completed Curre nt Smoker eCW1 ([facility]) Smoking 04/08/2020 12:00:00 AM EST Current Smoker completed Curre nt Smoker eCW1 ([facility]) Smoking 04/08/2020 12:00:00 AM EST Current Smoker completed Curre nt Smoker eCW1 ([facility]) Smoking 04/08/2020 12:00:00 AM EST Current Smoker completed Curre nt Smoker eCW1 ([facility]) Vital Signs ID Date Data Source UNK Name Value Range Interpretation Code Description Data Source(s) Body temperature 97.5 [degF] 97.5 [degF] MEDENT ([facility]) Body height 65.50 [in_i] 65.50 [in_i] MEDENT ([facility]) 5'5.50" Body weight 142.12 [lb_av] 142.12 [lb_av] MEDEN T ([facility]) Body mass index (BMI) [Ratio] 23.3 kg/m2 23.3 k g/m2 MEDENT ([facility]) Body weight 143 [lb_av] 143 [lb_av] eCW1 ([facility]) Body height 66 [in_i] 66 [in_i] eCW1 ([facility]) Body mass index (BMI) [Ratio] 23.08 kg/m2 23.08 kg/m2 W1 ([facility]) Heart rate 105 /min 105 /min eCW1 ([facility]) Respiratory rate 18 /min 18 /min eCW1 ([facility]) Body temperature 97.2 [degF] 97.2 [degF] eCW1 ( [facility]) Systolic blood pressure 110 mm[Hg] 110 mm[Hg] e CW1 ([facility]) Diastolic blood pressure 70 mm[Hg] 70 mm[Hg] eCW1 ([facility]) Body weight 158 [lb_av] 158 [lb_av] eCW1 ([facility]) Body height 66 [in_i] 66 [in_i] eCW1 ([facility]) Body mass index (BMI) [Ratio] 25.50 kg/m2 25.50 kg/m2 eCW1 ([facility]) Heart rate /min eCW1 ([facility]) Respiratory rate 18 /min 18 /min eCW1 ([facility]) Body temperature 98.7 [degF] 98.7 [degF] eCW1 ( [facility]) Systolic blood pressure 126 mm[Hg] 126 mm[Hg] e CW1 ([facility]) Diastolic blood pressure 78 mm[Hg] 78 mm[Hg] eCW1 ([facility]) Respiratory rate 18 /min 18 /min eCW1 ([facility]) Body temperature 98.4 [degF] 98.4 [degF] eCW1 ( [facility]) Systolic blood pressure 96 mm[Hg] 96 mm[Hg] e CW1 ([facility]) Diastolic blood pressure 66 mm[Hg] 66 mm[Hg] eCW1 ([facility]) Body weight 154 [lb_av] 154 [lb_av] eCW1 ([facility]) Body height 66 [in_i] 66 [in_i] eCW1 ([facility]) Body mass index (BMI) [Ratio] 24.85 kg/m2 24.85 kg/m2 eCW1 ([facility]) Heart rate 107 /min 107 /min eCW1 ([facility]) Body weight 153 [lb_av] 153 [lb_av] eCW1 ([facility]) Body height 66 [in_i] 66 [in_i] eCW1 ([facility]) Body mass index (BMI) [Ratio] 24.69 kg/m2 24.69 kg/m2 eCW1 ([facility]) Heart rate 104 /min 104 /min eCW1 ([facility]) Respiratory rate 18 /min 18 /min eCW1 ([facility]) Body temperature 97.0 [degF] 97.0 [degF] eCW1 ( [facility]) Systolic blood pressure 104 mm[Hg] 104 mm[Hg] e CW1 ([facility]) Diastolic blood pressure 62 mm[Hg] 62 mm[Hg] eCW1 ([facility]) ID Date Data Source [id number] 04/01/2020 10:39:00 PM EST [facility] Name Value Range Interpretation Code Description Data Source(s) Weight (Calculated Kilograms) 63.50 63.50 [facility] Height (Calculated Centimeters) 167.64 167. 64 [facility] Body Mass Index (BMI) 22.6 22.6 [facility] ID Date Data Source [id number] 04/29/2020 01:30:00 PM EST [facility] spital Name Value Range Interpretation Code Description Data Source(s) Weight Measurement Method 8 8 [facility] Weight (Calculated Kilograms) 63.50 63.50 [facility] Weight 2240 2240 [facility] pital Temperature Source 7 7 [facility] Temperature 97.9 97.9 [facility] spital Respiratory Effort 1 1 [facility] Respiratory Rate 20 20 [facility] Pulse Assessment Method 4 4 [facility] Pulse Rate 112 112 [facility] pital Height (Calculated Centimeters) 167.64 167. 64 [facility] Height 66 66 [facility] Blood Pressure 110/80 110/80 [facility] Body Mass Index (BMI) 22.6 22.6 [facility] Weight Measurement Method 8 8 [facility] Weight (Calculated Kilograms) 63.50 63.50 [facility] Weight 2240 2240 [facility] pital Temperature Source 7 7 [facility] Temperature 97.9 97.9 [facility] spital Respiratory Effort 1 1 [facility] Respiratory Rate 20 20 [facility] Pulse Assessment Method 4 4 [facility] Pulse Rate 112 112 [facility] pital Height (Calculated Centimeters) 167.64 167. 64 [facility] Height 66 66 [facility] Blood Pressure 110/80 110/80 [facility] Body Mass Index (BMI) 22.6 22.6 [facility] Weight Measurement Method 8 8 [facility] Weight (Calculated Kilograms) 63.50 63.50 [facility] Weight 2240 2240 [facility] pital Temperature Source 7 7 [facility] Temperature 97.9 97.9 [facility] spital Respiratory Effort 1 1 [facility] Respiratory Rate 20 20 [facility] Pulse Assessment Method 4 4 [facility] Pulse Rate 112 112 [facility] pital Height (Calculated Centimeters) 167.64 167. 64 [facility] Height 66 66 [facility] pital Blood Pressure 110/80 110/80 [facility] Body Mass Index (BMI) 22.6 22.6 [facility] Weight Measurement Method 8 8 [facility] Weight (Calculated Kilograms) 63.50 63.50 [facility] Weight 2240 2240 [facility] pital Temperature Source 7 7 [facility] Temperature 97.2 97.2 [facility] spital Respiratory Effort 1 1 [facility] Respiratory Rate 14 14 [facility] Pulse Assessment Method 4 4 [facility] Pulse Rate 85 85 [facility] pital Height (Calculated Centimeters) 167.64 167. 64 [facility] Height 66 66 [facility] Blood Pressure 107/75 107/75 [facility] Body Mass Index (BMI) 22.6 22.6 [facility] Weight (Calculated Kilograms) 63.[address] [place] [address] Height (Calculated Centimeters) 167.64 167. 64 [facility] Body Mass Index (BMI) 22.6 22.6 [facility] ID Date Data Source [id number] 12/20/2019 12:06:00 AM EDT [facility] Name Value Range Interpretation Code Description Data Source(s) Weight (Calculated Kilograms) 63.50 63.50 [facility] Height (Calculated Centimeters) 167.64 167. 64 [facility] Body Mass Index (BMI) 22.6 22.6 [facility] Weight (Calculated Kilograms) 63.50 63.50 [facility] Height (Calculated Centimeters) 167.64 167. 64 [facility] Body Mass Index (BMI) 22.6 22.6 [facility] ID Date Data Source [id number] 12/20/2019 10:54:00 AM EDT [facility] Name Value Range Interpretation Code Description Data Source(s) Weight Measurement Method 1 1 [facility] Weight (Calculated Kilograms) 63.50 63.50 [facility] Weight 2400 2400 [facility] Temperature Source 7 7 [facility] Temperature 98.4 98.4 [facility] Respiratory Effort 1 1 [facility] Respiratory Rate 16 16 [facility] Pulse Assessment Method 4 4 [facility] Pulse Rate 55 55 [facility] Height (Calculated Centimeters) 167.64 167. 64 [facility] Height 66 66 [facility] Blood Pressure 98/64 98/64 [facility] Body Mass Index (BMI) 22.6 22.6 [facility] Weight Measurement Method 1 1 [facility] Weight (Calculated Kilograms) 63.50 63.50 [facility] Weight 2400 2400 [facility] Temperature Source 7 7 [facility] Temperature 98.4 98.4 [facility] Respiratory Effort 1 1 [facility] Respiratory Rate 16 16 [facility] Pulse Assessment Method 4 4 [facility] Pulse Rate 55 55 [facility] Height (Calculated Centimeters) 167.64 167. 64 [facility] Height 66 66 [facility] Blood Pressure 98/64 98/64 [facility] Body Mass Index (BMI) 22.6 22.6 [facility] Weight Measurement Method 1 1 [facility] Weight (Calculated Kilograms) 63.50 63.50 [facility] Weight 2400 2400 [facility] Temperature Source 7 7 [facility] Temperature 98.4 98.4 [facility] Respiratory Effort 1 1 [facility] Respiratory Rate 16 16 [facility] Pulse Assessment Method 4 4 [facility] Pulse Rate 55 55 [facility] Height (Calculated Centimeters) 167.64 167. 64 [facility] Height 66 66 [facility] Blood Pressure 98/64 98/64 [facility] Body Mass Index (BMI) 22.6 22.6 [facility] Weight Measurement Method 1 1 [facility] Weight (Calculated Kilograms) 63.50 63.50 [facility] Weight 2240 2240 [facility] Temperature Source 7 7 [facility] Temperature 97.6 97.6 [facility] Respiratory Effort 1 1 [facility] Respiratory Rate 16 16 [facility] Pulse Assessment Method 4 4 [facility] Pulse Rate 74 74 [facility] Height (Calculated Centimeters) 167.64 167. 64 [facility] Height 66 66 [facility] Blood Pressure 126/82 126/82 [facility] Body Mass Index (BMI) 22.6 22.6 [facility] Weight Measurement Method 1 1 [facility] Weight (Calculated Kilograms) 63.50 63.50 [facility] Weight 2240 2240 [facility] Temperature Source 7 7 [facility] Temperature 97.6 97.6 [facility] Respiratory Effort 1 1 [facility] Respiratory Rate 18 18 [facility] Pulse Assessment Method 4 4 [facility] Pulse Rate 74 74 [facility] Height (Calculated Centimeters) 167.64 167. 64 [facility] Height 66 66 [facility] Blood Pressure 126/82 126/82 [facility] Body Mass Index (BMI) 22.6 22.6 [facility] Weight (Calculated Kilograms) 63.50 63.50 [facility] Height (Calculated Centimeters) 167.64 167. 64 [facility] Body Mass Index (BMI) 22.6 22.6 [facility] ID Date Data Source [id number] 11/27/2019 01:26:00 PM EDT [facility] Name Value Range Interpretation Code Description Data Source(s) Weight (Calculated Kilograms) 63.50 63.50 [facility] Weight 2240.002 2240.002 [facility] Temperature Source 7 7 [facility] Temperature 98.7 98.7 [facility] Respiratory Effort 1 1 [facility] Respiratory Rate 16 16 [facility] Pulse Assessment Method 4 4 [facility] Pulse Rate 88 88 [facility] Height (Calculated Centimeters) 167.64 167. 64 [facility] Height 66 66 [facility] Blood Pressure 110/62 110/62 [facility] Body Mass Index (BMI) 22.6 22.6 [facility] Weight (Calculated Kilograms) 63.50 63.50 [facility] Weight 2240.002 2240.002 [facility] Temperature Source 7 7 [facility] Temperature 98.7 98.7 [facility] Respiratory Effort 1 1 [facility] [facility] Respiratory Rate 16 16 [facility] Pulse Assessment Method 4 4 [facility] Pulse Rate 88 88 [facility] Height (Calculated Centimeters) 167.64 167. 64 [facility] Height 66 66 [facility] Blood Pressure 110/62 110/62 [facility] Body Mass Index (BMI) 22.6 22.6 [facility] Weight (Calculated Kilograms) 63.50 63.50 [facility] Weight 2240.002 2240.002 [facility] Temperature Source 7 7 [facility] Temperature 98.7 98.7 [facility] Respiratory Effort 1 1 [facility] Respiratory Rate 16 16 [facility] Pulse Assessment Method 4 4 [facility] Pulse Rate 88 88 [facility] Height (Calculated Centimeters) 167.64 167. 64 [facility] Height 66 66 [facility] Blood Pressure 110/62 110/62 [facility] Body Mass Index (BMI) 22.6 22.6 [facility] Weight (Calculated Kilograms) 63.50 63.50 [facility] Weight 2240.002 2240.002 [facility] Temperature Source 7 7 [facility] Temperature 98.6 98.6 [facility] Respiratory Effort 2 2 [facility] Respiratory Rate 18 18 [facility] Pulse Assessment Method 4 4 [facility] Pulse Rate 99 99 [facility] Height (Calculated Centimeters) 167.64 167. 64 [facility] Height 66 66 [facility] Blood Pressure 122/88 122/88 [facility] Body Mass Index (BMI) 22.6 22.6 [facility] Weight (Calculated Kilograms) 63.50 63.50 [facility] Weight 2240.002 2240.002 [facility] Temperature Source 7 7 [facility] Temperature 98.2 98.2 [facility] Respiratory Effort 1 1 [facility] Respiratory Rate 16 16 [facility] Pulse Assessment Method 4 4 [facility] Pulse Rate 79 79 [facility] Height (Calculated Centimeters) 167.64 167. 64 [facility] Height 66 66 [facility] Blood Pressure 106/81 106/81 [facility] Body Mass Index (BMI) 22.6 22.6 [facility] Weight (Calculated Kilograms) 63.50 63.50 [facility] Weight 2240.002 2240.002 [facility] Temperature Source 7 7 [facility] Temperature 98.4 98.4 [facility] Respiratory Rate 18 18 [facility] Pulse Assessment Method 4 4 [facility] Pulse Rate 87 87 [facility] Height (Calculated Centimeters) 167.64 167. 64 [facility] Height 66 66 [facility] Blood Pressure 114/74 114/74 [facility] Body Mass Index (BMI) 22.6 22.6 [facility] Weight (Calculated Kilograms) 63.50 63.50 [facility] Weight 2240.002 2240.002 [facility] Temperature Source 7 7 [facility] Temperature 99.4 99.4 [facility] Respiratory Rate 18 18 [facility] Pulse Assessment Method 4 4 [facility] Pulse Rate 98 98 [facility] Height (Calculated Centimeters) 167.64 167. 64 [facility] Height 66 66 [facility] Blood Pressure 106/66 106/66 [facility] Body Mass Index (BMI) 22.6 22.6 [facility] Weight (Calculated Kilograms) 73.94 73.94 [facility] Height (Calculated Centimeters) 167.64 167. 64 [facility] Body Mass Index (BMI) 26.3 26.3 [facility] Weight (Calculated Kilograms) 73.94 73.94 [facility] Height (Calculated Centimeters) 167.64 167. 64 [facility] Body Mass Index (BMI) 26.3 26.3 [facility] ID Date Data Source [id number] 12/25/2019 08:28:00 AM EDT [facility] Name Value Range Interpretation Code Description Data Source(s) Weight Measurement Method 8 8 [facility] Weight (Calculated Kilograms) 63.50 63.50 [facility] Weight 2240 2240 [facility] pital Temperature Source 7 7 [facility] Temperature 98.8 98.8 [facility] spital Respiratory Effort 1 1 [facility] Respiratory Rate 18 18 [facility] Pulse Assessment Method 4 4 [facility] Pulse Rate 86 86 [facility] pital Height (Calculated Centimeters) 167.64 167. 64 [facility] Height 66 66 [facility] 121/86 121/86 [facility] Body Mass Index (BMI) 22.6 22.6 [facility] Weight Measurement Method 8 8 [facility] Weight (Calculated Kilograms) 63.50 63.50 [facility] Weight 2240 2240 [facility] pital Temperature Source 1 1 [facility] Temperature 98.7 98.7 [facility] spital Respiratory Effort 1 1 [facility] Respiratory Rate 20 20 [facility] Pulse Assessment Method 4 4 [facility] Pulse Rate 114 114 [facility] pital Height (Calculated Centimeters) 167.64 167. 64 [facility] Height 66 66 [facility] Blood Pressure 131/96 131/96 [facility] Body Mass Index (BMI) 22.6 22.6 [facility] Weight Measurement Method 8 8 [facility] Weight (Calculated Kilograms) 63.50 63.50 [facility] Weight 2240 2240 [facility] pital Temperature Source 1 1 [facility] Temperature 98.7 98.7 [facility] Res[facility] Effort 1 1 [facility] Respiratory Rate 20 20 [facility] Pulse Assessment Method 4 4 [facility] Pulse Rate 114 114 [facility] pital Height (Calculated Centimeters) 167.64 167. 64 [facility] Height 66 66 [facility] pital Blood Pressure 131/96 131/96 [facility] Body Mass Index (BMI) 22.6 22.6 [facility] Weight (Calculated Kilograms) 63.50 63.50 [facility] Height (Calculated Centimeters) 167.64 167. 64 [facility] Body Mass Index (BMI) 22.6 22.6 [facility] Weight (Calculated Kilograms) 63.50 63.50 [facility] Height (Calculated Centimeters) 167.64 167. 64 [facility] Body Mass Index (BMI) 22.[address] ID Date Data Source [id number] 11/22/2019 02:02:00 PM EDT [facility] lashanda Name Value Range Interpretation Code Description Data Source(s) Weight (Calculated Kilograms) 63.[address] [place] [address] Height (Calculated Centimeters) 167.64 167. 64 [facility] Body Mass Index (BMI) 22.[address] Weight (Calculated Kilograms) 63.[address] [place] [address] Height (Calculated Centimeters) 167.64 167. 64 [facility] Body Mass Index (BMI) 22.[address] Patient Treatment Plan of Care Planned Activity Planned Date Details Description Data Source (s) Acamprosate calcium 333 MG Delayed Release Oral Tablet 09/23/2020 12:00:00 AM EDT [facility] ([facility]) Acamprosate calcium 333 MG Delayed Release Oral Tablet 09/13/2020 12:00:[address] [facility] Acamprosate calcium 333 MG Delayed Release Oral Tablet 09/13/2020 12:00:00 AM [facility] quetiapine 25 MG Oral Tablet [Seroquel] 04/08/2020 12:00:00 AM EST [facility] Naltrexone 112 MG/ML Injectable Suspension [Vivitrol] 04/08/2020 12:00:00 AM EST eC ([facility]) Naltrexone 112 MG/ML Injectable Suspension [Vivitrol] 04/08/2020 12:00:00 AM EST eCW1 ([facility]) quetiapine 25 MG Oral Tablet [Seroquel] 04/08/2020 12:00:00 AM EST e[facility] ([facility]) Naltrexone 112 MG/ML Injectable Suspension [Vivitrol] 04/08/2020 12:00:00 AM EST eCW1 ([facility]) Naltrexone 112 MG/ML Injectable Suspension [Vivitrol] 04/08/2020 12:00:00 AM EST eCW1 ([facility]) quetiapine 25 MG Oral Tablet [Seroquel] 04/08/2020 12:00:00 AM EST eCW[facility] ([facility]) Naltrexone 112 MG/ML Injectable Suspension [Vivitrol] 04/08/2020 12:00:00 AM EST eCW1 ([facility]) Naltrexone 112 MG/ML Injectable Suspension [Vivitrol] 04/08/2020 12:00:00 AM EST eCW1 ([facility])
[2020-12-31] MEDS ORDERED: ONDANSETRON 4 MG ORAL DISINTEGRATING TAB PO ONE (17:05)
[2020-12-31 17:13] VITALS: BP 136/83
== END 2020-12-31 17:47 | disposition home or self-care (01) ==
LOC: M ED 12:33
DX: F10.10 Alcohol abuse, uncomplicated (principal); F33.9 Major depressive disorder, recurrent, unspecified; F41.9 Anxiety disorder, unspecified; Z79.899 Other long term (current) drug therapy; Z79.82 Long term (current) use of aspirin; Z98.84 Bariatric surgery status; F17.210 Nicotine dependence, cigarettes, uncomplicated
CPT/HCPCS: 96360; 96361; 99284; Q0162

== ENCOUNTER 2021-01-02 12:59 | Outpatient (RCR) | payer MEDICAID | END 2021-01-18 | LOC: M OUTALCOH 12:59 | PROVIDERS: ATTEND Psychiatry & Neurology Psychiatry | DX: F10.20 Alcohol dependence, uncomplicated (principal) ==

== ENCOUNTER 2021-02-07 14:07 | Inpatient (IN) | payer MEDICAID, OTHER ==
[~2021-02-07] VITALS: Ht 167.6 cm; Wt 71.0 kg
--- OUTSIDE RECORDS SUMMARY | 2021-02-07 15:18 | CCD ---
Author Author [facility] Organization [facility] Address Unknown Phone Unavailable Care Team Providers Care Party Demonstrator Name Role Phone Salena AQUINO Unavailable Unavailable ZENICOLELNichole CALENDER SUPERVISOR Unavailable Unavailable ZEGIL D GEORGE CALENDER SUPERVISOR Unavailable Unavailable ROBL, D GEORGE CALENDER SUPERVISOR Unavailable Unavailable Jenni Spring MD Unavailable Unavailable Jenni Spring MD Unavailable Unavailable Jenni Spring MD Unavailable Unavailable Jenni Spring MD Unavailable Unavailable Con Penaloza MD Unavailable [...] Unavailable Con Penaloza MD Unavailable Unavailable Con ePnaloza MD Unavailable Unavailable Con Penaloza MD Unavailable Unavailable Con Penaloza MD Unavailable Unavailable Con Penaloza MD Unavailable Unavailable Con Penaloza MD Unavailable Unavailable Con Penaloza MD Unavailable Unavailable Con Penaloza MD Unavailable Unavailable Con Penaloza MD Unavailable Unavailable Con Penaloza MD Unavailable Unavailable Con Penaloza MD Unavailable Unavailable Con Penaloza MD Unavailable Unavailable Con Penaloza MD Unavailable Unavailable Con Penaloza MD Unavailable Unavailable MAUDE ALVAREZ MD Unavailable Unavailable MAUDE ALVAREZ MD Unavailable Unavailable MAUDE ALVAREZ MD Unavailable Unavailable MAUDE ALVAREZ MD Unavailable Unavailable MAUDE ALVAREZ MD Unavailable Unavailable MAUDE ALVAREZ MD Unavailable Unavailable MAUDE ALVAREZ MD Unavailable Unavailable Rai, M Barratt PA Unavailable [...] Unavailable Rai, M Barratt PA Unavailable Unavailable Jose Cruz Alvarez MD Unavailable Unavailable UNKNOWN Unavailable Unavailable CIERRA ESTRELLA Unavailable Unavailable Sienkiewycz, L Dianne CNC MILL SET UP OPERATOR Unavailable Unavailable Sienkiewycz, L Dianne CNC MILL SET UP OPERATOR Unavailable Unavailable Sienkiewycz, L Dianne CNC MILL SET UP OPERATOR Unavailable Unavailable Sienkiewycz, L Dianne CNC MILL SET UP OPERATOR Unavailable Unavailable Sienkiewycz, L Dianne CNC MILL SET UP OPERATOR Unavailable Unavailable Sienkiewycz, L Dianne CNC MILL SET UP OPERATOR Unavailable Unavailable Sienkiewycz, L Dianne CNC MILL SET UP OPERATOR Unavailable Unavailable Zamarripa, C Indira RPA-C Unavailable [...] C Indira RPA-C Unavailable Unavailable Zamarripa, C Nidira RPA-C Unavailable Unavailable Zamarripa, C Indira RPA-C [...] is protected by Article 27-F of the [facility] [place] [facility] Public Health law. If you continue you may have access to information: Regarding HIV / AIDS; Provided by facilities licensed or operated by the [facility] Office of Mental Health; or Provided by the [facility] Office for People With Developmental Disabilities. If such information is present, then the following [facility] mandated warning applies: This information has been [...] law may result in a fine or senior care sentence or both. A general authorization for the release of medical or other information is NOT sufficient authorization for further disc losure. Allergies and Adverse Reactions Type Description Substance Reaction Status Data Source(s ) Propensity to adverse reactions Propensity to adverse reacti ons No Known Drug Allergies [facility] Encounters Encounter Providers Location Date Indications Data Source(s ) Unknown [address] [facility] [place] [address] 12/19/2020 12:00:00 AM EDT eCW1 ([facility]) Unknown [address] [facility] [address] [place] [address] 12/15/2020 12:00:00 AM EDT eCW1 ([facility]) Outpatient [address] [facility] [place] [address] 10/24/2020 12:00:00 AM EDT eCW1 ([facility]) Outpatient Attender: Jason SAINZ Physical Therapy 02:45:00 PM EDT [facility] ([facility]) Outpatient [address] [facility] [place] [address] 09/30/2020 12:00:00 AM EDT eCW1 ([facility]) Unknown [address] [facility] [place] [address] 09/30/2020 12:00:00 AM EDT eCW1 ([facility]) Unknown [address] [facility] [place] [address] 09/16/2020 12:00:00 AM EDT eCW1 ([facility]) Inpatient Attender: Cookie Spring MDAdmitter: Cookie navarro MD SURG-MED 09/12/2020 04:20:00 PM EDT - 09/13/2020 05:30:00 PM EDT [facility] Patient discharged. Inpatient Attender: Cookie Spring MDAdmitter: Cookie navarro MD SURG-MED 09/12/2020 04:20:00 PM EDT [facility] V Attender: Cookie Spring MDAdmitter: Cookie navarro MD SURG-MED 09/12/2020 02:55:00 PM EDT [facility] Patient admitted. Outpatient Attender: Dianne Cesar NP SURG-NPLAB 09/12/2020 02:01:00 PM EDT [facility] Unknown [address] [facility] [place] [address] 07/15/2020 12:00:00 AM EDT eCW1 ([facility]) Outpatient [address] [facility] [place] [address] 07/15/2020 12:00:00 AM EDT eCW1 ([facility]) Unknown [address] [facility] [place] [address] 07/08/2020 12:00:00 AM EDT [facility]CW1 [facility] Outpatient [address] [facility] [place] [address] 05/30/2020 12:00:00 AM EST eCW1 [facility]) Outpatient [address] [facility] [place] [address] 04/21/2020 12:00:00 AM EST eCW1 ([facility]) Outpatient [address] [facility] [place] [address] 04/08/2020 12:00:00 AM EST eCW1 ([facility]) Unknown [address] [facility] [place] [address] 04/08/2020 12:00:00 AM EST eCW1 ([facility]) Unknown [address] [facility] [place] [address] 04/08/2020 12:00:00 AM EST eCW1 ([facility]) Outpatient Attender: ANABELLA CARNESLABEJN 03/26/2020 09:45:00 AM E [facility] Inpatient Attender: Con Penaloza MDAdmitter: Con tyson MD [facility] 03/26/2020 04:22:00 AM EST - 03/29/2020 11:20:00 AM EST [id number] [facility] 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 Outpatient Attender: RAYRAY AQUINO 01/08/2020 06:00:[address] [facility] Outpatient Attender: RAYRAY AQUINO 12/24/2019 04:00:[address] [facility] Outpatient Attender: CIERRA ESTRELLA 12/24/2019 02:00:00 PM ED [facility] Outpatient Attender: Indira BUCKLEY CPSCALOR-CHEPDREH 12/19/2019 08:30:00 AM EDT - 12/19/2019 08:31:00 AM EDT MAR [facility] pital MAR Patient discharged. Inpatient Attender: Maude Pina nder: MAUDE ALVAREZ MDAdmitter: MAUDE ALVAREZ MD CPSCALOR-CHEPPDREH 11/24/2019 09:54:00 AM EDT - 12/19/2019 06:02:00 AM EDT PSYCHOACTIVE SUBSTANCE DEPENDENCE [facility] PSYCHOACTIVE SUBSTANCE DEPENDENCE Patient discharged. Emergency Attender: GEORGE DIA [facility] ED-ED 03/2019 06:06:00 PM EDT - 11/20/2019 10:45:00 PM EDT [facility] Patient discharged. Immunizations Vaccine Date Status Description Data Source(s) 10/24/2020 09:51:00 AM EDT completed e CW1 ([facility]) 10/24/2020 09:51:00 AM EDT completed e CW1 ([facility]) 07/15/2020 09:52:00 AM EDT completed e CW1 ([facility]) 07/15/2020 09:52:00 AM EDT completed e CW1 ([facility]) 07/15/2020 09:52:00 AM EDT completed e CW1 ([facility]) 07/15/2020 09:52:00 AM EDT completed e CW1 ([facility]) 07/15/2020 09:52:00 AM EDT completed e CW1 ([facility]) 07/15/2020 09:52:00 AM EDT completed e CW1 ([facility]) 07/15/2020 09:52:00 AM EDT completed e CW1 ([facility]) 07/15/2020 09:52:00 AM EDT completed e CW1 ([facility]) Medications Medication Brand Name Start Date Product Form Dose Route Admi nistrative Instructions Pharmacy Instructions Status Indications Reaction Description Data Source(s) Citalopram 40 MG Oral Tablet CITALOPRAM HYDROBROMIDE 01/15/2021 12:00:00 AM EDT tablet 30 TAKE ONE TABLET BY MOUTH EVERY D AY TAKE ONE TABLET BY MOUTH EVERY DAY SOLD: 01/25/2021 [facility] Disulfiram 250 MG Oral Tablet Disulfiram 250 MG 12/12/2020 12:00:00 AM EDT 1.0 {tablet} active Disulfiram 250 MG eCW1 ([facility]) Disulfiram 250 MG Oral Tablet Disulfiram 250 MG 12/12/2020 12:00:00 AM EDT 1.0 {tablet} active Disulfiram 250 MG eCW1 ([facility]) 250 mg 09/30/2020 12:00:00 AM [...] ONE TABLET BY MOUTH EVERY DAY SOLD: 01/05/2021 [facility] 250 mg 09/30/2020 12:00:00 AM [...] CAPSULE BY MOUTH EVERY DAY NEEDED SOLD: 01/05/2021 [facility] 300 mg 09/29/2020 12:00:00 AM [...] ts} active Acamprosate Calcium 333 MG eCW1 ([facility]) Acamprosate calcium 333 MG Delayed Relea se Oral Tablet Acamprosate Calcium 333 MG Acamprosate Calcium 333 MG 09/23/2020 12:00:00 AM EDT 2.0 {table ts} active Acamprosate Calcium 333 MG eCW1 ([facility]) Acamprosate calcium 333 MG Delayed Relea se Oral Tablet Acamprosate Calcium 333 MG Acamprosate Calcium 333 MG 09/23/2020 12:00:00 AM EDT 2.0 {table ts} active Acamprosate Calcium 333 MG eCW1 ([facility]) Acamprosate calcium 333 MG Delayed Relea se Oral Tablet Acamprosate Calcium 333 MG Acamprosate Calcium 333 MG 09/23/2020 12:00:00 AM EDT 2.0 {table ts} active Acamprosate Calcium 333 MG eCW1 ([facility]) Acamprosate calcium 333 MG Delayed Relea se Oral Tablet Acamprosate Calcium 333 MG Acamprosate Calcium 333 MG 09/23/2020 12:00:00 AM EDT 2.0 {table ts} active Acamprosate Calcium 333 MG eCW1 ([facility]) Acamprosate calcium 333 MG Delayed Relea se Oral Tablet Acamprosate Calcium 333 MG Acamprosate Calcium 333 MG 09/23/2020 12:00:00 AM EDT 2.0 {table ts} active Acamprosate Calcium 333 MG eCW1 ([facility]) Acamprosate calcium 333 MG Delayed Relea se Oral Tablet Acamprosate Calcium 333 Mg Tablet.dr Dick, 666 Mg Oral Acamprosate Calcium 333 Mg Tablet.dr Dick, 666 Mg Oral 09/13/2020 12:00:00 AM EDT 666 completed Three Times a Day [facility] Acamprosate calcium 333 MG Delayed Relea se Oral Tablet Acamprosate Calcium 333 MG TABLET. Acamprosate Calcium 333 MG TABLET. 09/13/2020 12:00:00 AM EDT 666 completed Three Times a Day [facility] 25 mg 09/08/2020 12:00:00 AM EDT capsule 30 TAKE ONE CAPSULE BY MOUTH EVERY DAY NEEDED TAKE ONE CAPSULE BY MOUTH EVERY DAY NEEDED SOLD: 11/15/2020 [facility] 25 mg 09/08/2020 12:00:00 AM EDT capsule 30 TAKE ONE CAPSULE BY MOUTH EVERY DAY NEEDED TAKE ONE CAPSULE BY MOUTH EVERY DAY NEEDED SOLD: 10/16/2020 [facility] 25 mg 09/08/2020 12:00:00 AM [...] TABLET BY MOUTH EVERY DAY SOLD: 05/17/2020 [facility] Citalopram 40 MG Oral Tablet CITALOPRAM HYDROBROMIDE 05/17/2020 12:00:00 AM EST tablet 30 TAKE ONE TABLET BY MOUTH EVERY D AY TAKE ONE TABLET BY MOUTH EVERY DAY SOLD: 06/24/2020 [facility] Citalopram 40 MG Oral [...] 1.0 {tablet_at_bedtime} active SEROquel 25 MG eCW1 ([facility]) Naltrexone 112 MG/ML Injectable Suspension [Vivitrol] Vivitrol 380 MG Vivitrol 380 MG 04/08/2020 12:00:00 AM EST 4.0 {ml} active Vivitrol 380 MG eCW1 ([facility]) Naltrexone 112 MG/ML Injectable Suspension [Vivitrol] Vivitrol 380 MG Vivitrol 380 MG 04/08/2020 12:00:00 AM EST 4.0 {ml} active Vivitrol 380 MG eCW1 ([facility]) Naltrexone 112 MG/ML Injectable Suspension [Vivitrol] Vivitrol 380 MG Vivitrol 380 MG 04/08/2020 12:00:00 AM EST 4.0 {ml} active Vivitrol 380 MG eCW1 ([facility]) Naltrexone 112 MG/ML Injectable Suspension [Vivitrol] Vivitrol 380 MG Vivitrol 380 MG 04/08/2020 12:00:00 AM EST 4.0 {ml} active Vivitrol 380 MG eCW1 ([facility]) Naltrexone 112 MG/ML Injectable Suspension [Vivitrol] Vivitrol 380 MG Vivitrol 380 MG 04/08/2020 12:00:00 AM EST 4.0 {ml} active Vivitrol 380 MG eCW1 ([facility]) Naltrexone 112 MG/ML Injectable Suspension [Vivitrol] Vivitrol 380 MG Vivitrol 380 MG 04/08/2020 12:00:00 AM EST 4.0 {ml} active Vivitrol 380 MG eCW1 ([facility]) Naltrexone 112 MG/ML Injectable Suspension [Vivitrol] Vivitrol 380 MG Vivitrol 380 MG 04/08/2020 12:00:00 AM EST 4.0 {ml} active Vivitrol 380 MG eCW1 ([facility]) Naltrexone 112 MG/ML Injectable Suspension [Vivitrol] Vivitrol 380 MG Vivitrol 380 MG 04/08/2020 12:00:00 AM EST 4.0 {ml} active Vivitrol 380 MG eCW1 ([facility]) Naltrexone 112 MG/ML Injectable Suspension [Vivitrol] Vivitrol 380 MG Vivitrol 380 MG 04/08/2020 12:00:00 AM EST 4.0 {ml} active Vivitrol 380 MG eCW1 ([facility]) Naltrexone 112 MG/ML Injectable Suspension [Vivitrol] Vivitrol 380 MG Vivitrol 380 MG 04/08/2020 12:00:00 AM EST 4.0 {ml} active Vivitrol 380 MG eCW1 ([facility]) Naltrexone 112 MG/ML Injectable Suspension [Vivitrol] Vivitrol 380 MG Vivitrol 380 MG 04/08/2020 12:00:00 AM EST 4.0 {ml} active Vivitrol 380 MG eCW1 ([facility]) Naltrexone 112 MG/ML Injectable Suspension [Vivitrol] Vivitrol 380 MG Vivitrol 380 MG 04/08/2020 12:00:00 AM EST 4.0 {ml} active Vivitrol 380 MG eCW1 ([facility]) Naltrexone 112 MG/ML Injectable Suspension [Vivitrol] Vivitrol 380 MG Vivitrol 380 MG 04/08/2020 12:00:00 AM EST 4.0 {ml} active Vivitrol 380 MG eCW1 ([facility]) Naltrexone 112 MG/ML Injectable Suspension [Vivitrol] Vivitrol 380 MG Vivitrol 380 MG 04/08/2020 12:00:00 AM EST 4.0 {ml} active Vivitrol 380 MG eCW1 ([facility]) quetiapine 25 MG Oral Tablet [Seroquel] SEROquel 25 MG SEROq uel 25 MG 04/08/2020 12:00:00 AM EST 1.0 {tablet_at_bedtime} active SEROquel 25 MG eCW1 ([facility]) Naltrexone 112 MG/ML Injectable Suspension [Vivitrol] Vivitrol 380 MG Vivitrol 380 MG 04/08/2020 12:00:00 AM EST 4.0 {ml} active Vivitrol 380 MG eCW1 ([facility]) Naltrexone 112 MG/ML Injectable Suspension [Vivitrol] Vivitrol 380 MG Vivitrol 380 MG 04/08/2020 12:00:00 AM EST 4.0 {ml} active Vivitrol 380 MG eCW1 ([facility]) Naltrexone 112 MG/ML Injectable Suspension [Vivitrol] Vivitrol 380 MG Vivitrol 380 MG 04/08/2020 12:00:00 AM EST 4.0 {ml} active Vivitrol 380 MG eCW1 ([facility]) quetiapine 25 MG Oral Tablet [Seroquel] SEROquel 25 MG SEROq uel 25 MG 04/08/2020 12:00:00 AM EST 1.0 {tablet_at_bedtime} active SEROquel 25 MG eCW1 ([facility]) Insurance Providers Payer name Policy type / Coverage type Policy ID Covered green party ID Covered green party's relationship to cardoso Policy [employer] Plan Information [facility] [facility] [id number] Unemploye d [id number] [facility] [facility] [id number] S [id number] [employer] [facility] [id number] Unemploye d [id number] SELF PAY SP [employer] COMM[employer]ITY PLAN MCDHMO [id number] SP [id number] [facility](MCA[facility]) O [id number] S [id number] [facility] [place] [id number] S [id number] [facility] MEDICAID [id number] S [id number] SELF PAY ONLY [id number] SP [id number] MEDICAID [id number] UN COMMUNITY PLAN MCDHMO NO CARDS SP NO CARDS [facility] [facility] [facility] [id number] Unemploye d [id number] SELF PAY Unemployed [facility] [id number] SP [id number] [facility] [facility] [id number] S [id number] [facility] [id number] S [id number] SELF PAY ONLY [id number] SP [id number] MEDICAID [id number] [facility] [id number] [facility] [id number] [facility]-Medicaid [id number] [facility] [id number] ANSI-Medicaid [id number] ANSI-Medicaid [id number] [facility] [id number] SP [id number] [facility] [id number] SP [id number] [facility] [id number] SP [id number] ANSI-Medicaid [id number] ANSI-Medicaid [id number] MEDICAID [id number] SP [id number] MEDICAID [id number] SP [id number] [facility] O [id number] [id number] [facility] [id number] SP [id number] [employer] [id number] SP [id number] [employer] O [id number] S [id number] [employer] [id number] SP [id number] MEDICAID - CLINIC [id number] [facility] [id number] SP [id number] [facility] [id number] SP [id number] [facility] COMMUNITY PLAN [id number] SP [id number] Problems, Conditions, and Diagnoses Code Display Name Description Problem Type Effective Dates Data Source(s) Y90.0 Blood alcohol level of less than 20 mg/1 00 ml BLOOD ALCOHOL LEVEL OF LESS THAN 20 MG/100 ML Diagnosis 03/26/2020 04:22:00 AM EST Allyn pyle Z91.81 History of falling HISTORY OF FALLING Diagnosis 08/2020 04:22:00 AM [facility] M25.531 Pain in right wrist PAIN IN RIGHT WRIST Diagnosis 0 03/26/2020 04:22:00 AM [facility] Z53.29 Procedure and treatment not carried out because of patient's decision for other reasons PROC/TRTMT NOT CRD OUT BEC PT DECISION FOR OTH REASONS Diagn osis 03/26/2020 04:22:00 AM [facility] F34.1 Dysthymic disorder DYSTHYMIC DISORDER Diagnosis 08/2020 04:22:00 AM [facility] F17.210 Nicotine dependence, cigarettes, uncompl icated NICOTINE DEPENDENCE, CIGARETTES, UNCOMPLICATED Diagnosis 03/26/2020 04:22:00 AM [facility] F10.230 Alcohol dependence with withdrawal, unco mplicated ALCOHOL DEPENDENCE WITH WITHDRAWAL, UNCOMPLICATED Diagnosis 03/26/2020 04:22:00 AM [facility] F10.11 ALCOHOL ABUSE, IN REMISSION ALCOHOL ABUSE, IN REMISSIO N Diagnosis 12/24/2019 02:00:00 PM [facility] F41.9 Anxiety disorder, unspecified ANXIETY DISORDER, UNSPEC IFIED Diagnosis 12/24/2019 02:00:00 PM [facility] F10.21 Alcohol dependence, in remission ALCOHOL DEPENDE NCE, IN REMISSION Diagnosis 12/24/2019 02:00:00 PM [facility] F10.10 [id number] Alcohol use disorder, mild, abuse Problem [facility] F33.2 [id number] Severe episode of re current major depressive disorder, without psychotic features Problem 04/21/2020 12:00:00 AM EST [facility] ([facility]) F41.8 [id number] Depression with anxiety Problem 04/21/2020 1 2:00:00 AM EST [facility] ([facility]) F51.04 [id number] Psychophysiological insomnia Problem 04/08/2020 12:00:00 AM EST [facility] ([facility]) F17.200 [id number] Nicotine dependence with current use Prob darling 04/08/2020 12:00:00 AM EST [facility] ([facility]) Surgeries/Procedures Procedure Description Date Indications Data Source(s) Injection, medroxyprogesterone acetate for contraceptive use , 150 mg 10/24/2020 12:00:00 AM EDT eCW1 ([facility]) OFFICE OUTPATIENT NEW 45 MINUTES 10/01/2020 12:00:00 A M EDT [facility] ([facility] ) CLTX PHLNGL FX PROX/MIDDLE PX/F/T W/O MANJ EA 10/02/19 12:00:00 AM EDT [facility] ([facility] ) Detoxification Services for Substance Abuse Treatment DETOXIFICATION SERVICES FOR SUBSTANCE ABUSE TREATMENT 09/12/2020 12:00:00 AM EDT [facility]. Naltrexone 380mg (Pt Supplied) 07/15/2020 12:00:00 AM EDT eCW1 ([facility]) Injection, medroxyprogesterone acetate for contraceptive use , 150 mg 07/15/2020 12:00:00 AM EDT eCW1 ([facility]) Naltrexone 380mg (Pt Supplied) 05/30/2020 12:00:00 AM EST eCW1 ([facility]) URINE TEST 04/21/2020 12:00:00 AM EST eCW1 ([facility]) Naltrexone 380mg 04/21/2020 12:00:00 AM EST eCW1 ([facility]) Injection, medroxyprogesterone acetate for contraceptive use , 150 mg 04/21/2020 12:00:00 AM EST eCW1 ([facility]) ECG ROUTINE ECG W/LEAST 12 LDS W/I&R 04/21/2020 12:00: 00 AM EST eCW1 ([facility]) Individual Counseling for Substance Abuse Treatment, C ontinuing Care INDIV INSOLE TAPE STITCHER UCO FOR SUBSTANCE ABUSE TREATMENT, CONTINUING CARE 03/29/2020 12:00:00 AM [facility] Detoxification Services for Substance Abuse Treatment DETOXIFICATION SERVICES FOR SUBSTANCE ABUSE TREATMENT 03/27/2020 12:00:00 AM [facility] Results ID Date Data Source [id number] 12/29/2020 10:14:00 PM EDT [facility] Name Value Range Interpretation Code Description Data Nataly rce(s) Supporting Document(s) SARS coronavirus 2 RNA [Presence] in Res piratory specimen by SELMA with probe detection NEGATIVE [facility] This lab was ordered by [facility] a nd reported by [facility]. ID Date Data Source [id number] 12/10/2020 06:31:00 PM EDT [facility] Name Value Range Interpretation Code Description Data Nataly rce(s) Supporting Document(s) SARS-CoV-2 (COVID 19) NEGATIVE - SARS-CoV-2 (COVID19) [facility] This lab was ordered by [facility] a nd reported by [facility]. ID Date Data Source [id number] 09/13/2020 03:48:00 PM [facility]T [employer] Counselor Progress NotePatient NotePatie nt chose to leave Inpatient Detox Treatment at [facility] medical advice today. Patient was provided with contactinformation for aftercare treatment options, list of current local self-help meetings, community resources sheet, as well as contact informationfor the [facility] Emotional SupportLine available 11/10. Staff spoke with patient regarding the benefits ofcompleting treatment and risks of leaving prior to recommended discharge.Patient confirmed understanding, noted having no questions or concernsand reported feeling safe at time of discharge, denying suicidal andhomicidal ideation. Nursing Hotel Receptionist and Hospitalist were notified ofAMA. At the time of discharge, the patient received all of theirbelongings. Patient was picked up to be driven home by her boyfriend.Patient stated the reason for leaving AMA was she needed to go home anddeal with matters at home with her daughter and she needs to be at homein her own bed.Dictated on 09/13/20 1548 by Shelby CurtisTranscribed on 09/13/20 1548 by Shelby CurtisSign by Shelby Curtis on 09/13/20 1558Sign by: Shelby Curtis Name Value Range Interpretation Code Description Data Nataly rce(s) Supporting Document(s) ID Date Data Source [id number] 09/13/2020 03:13:00 PM EDT [facility] [employer] Counselor Progress NotePatient NoteCOUNS SHELBY MEDEROS, MS, CASAC-T, COMPLETED THE SAFE-T ASSESSMENTWITH THE PATIENT (SEE IN CHART).Dictated on 09/13/201512 by Shelby CurtisTranscribed on 09/13/201512 by Shelby CurtisSign by Shelby Curtis on 09/13/201513Sign by: Shelby Curtis Name Value Range Interpretation Code Description Data Nataly rce(s) Supporting Document(s) ID Date Data Source [id number] 09/12/2020 02:00:00 PM EDT [facility] Name Value Range Interpretation Code Description Data Nataly rce(s) Supporting Document(s) SARS-CoV-2 (COVID-19) RNA [Presence] in Respiratory specimen by SELMA with probe detection Negative; No COVID-2 RNA detected by PCR. [facility] This lab was ordered by [facility] and reported by . ID Date Data Source [id number] 03/27/2020 01:04:00 PM [facility] spital Procedure Performed By: [facility] [address] [place] [address] Director: Latanya Zamarripa MD Mixed huang: Mixed huang, probable contamination. Name Value Range Interpretation Code Description Data Nataly rce(s) Supporting Document(s) ID Date Data Source [id number] 04/29/2020 01:30:00 PM [facility] Name Value Range Interpretation Code Description Data Nataly rce(s) Supporting Document(s) Vitamin B12 result 541 Normal (applies to non-numer ic results) [facility] SEE SCANNED REPORT ID Date Data Source [id number] 04/01/2020 10:39:00 PM [facility] Name Value Range Interpretation Code Description Data Nataly rce(s) Supporting Document(s) Vitamin D 1,25 result 60 pg/mL 18-78 Normal (applies to non-nu meric results) [facility] ADDITIONAL INFORMATIO N This test was developed and its performance characteristics determined by [facility] in a manner consistent with CLIA requirements. This test has not been cleared or approved by the U.S. Food and Drug Administration. Test Performed by: [facility] - [facility] [address] [place] [id number] Chief Chemist: Yves Enciso M.D. Ph.D.; CLIA# [id number] ID Date Data Source [id number] 03/26/2020 07:08:00 PM [facility] Name Value Range Interpretation Code Description Data Nataly rce(s) Supporting Document(s) Iron Level FE result 226 ug/dL 37-170 [facility] Test Performed By: [facility] [address] [place] [address] Director: Malaika Zamarripa MD ID Date Data Source [id number] 03/26/2020 07:08:00 PM [facility] Name Value Range Interpretation Code Description Data Nataly rce(s) Supporting Document(s) Ferritin result 138 ng/mL 6.2-137.0 [facility] Test Performed By: [facility] [address] [place] [address] Director: Malaika Zamarripa MD ID Date Data Source [id number] 03/26/2020 06:38:00 PM EST [facility] Name Value Range Interpretation Code Description Data Nataly rce(s) Supporting Document(s) Ferritin 138 ng/mL 6.2-137.0 Above high normal [facility] Test Performed By: [facility] [address] [place] [address] Director: Malaika Zamarripa MD ID Date Data Source [id number] 03/26/2020 06:38:00 PM EST [facility] Name Value Range Interpretation Code Description Data Nataly rce(s) Supporting Document(s) Iron FE Level 226 ug/dL 37-170 Above high normal [facility] Test Performed By: [facility] [address] [place] [address] Director: Malaika Zamarripa MD ID Date Data Source [id number] 03/26/2020 06:38:00 PM EST [facility] Name Value Range Interpretation Code Description Data Nataly rce(s) Supporting Document(s) Vitamin B12 541 pg/mL 193-986 Normal (applies to non-numeric resu lts) [facility] Test Performed By: [facility] [address] [place] [address] Director: Malaika Zamarripa MD ID Date Data Source [id number] 03/26/2020 05:53:00 AM [facility] Name Value Range Interpretation Code Description Data Nataly rce(s) Supporting Document(s) Bilirubin,Direct 0.05-0.20 Above high normal [facility] ID Date Data Source [id number] 03/26/2020 05:54:00 AM [facility] Value Range Interpretation Code Description Data Nataly rce(s) Supporting Document(s) Thyroid Stimulate Hormone TSH 0.358-3.74 Above high normal [facility] ID Date Data Source [id number] 03/26/2020 05:53:00 AM [facility] Name Value Range Interpretation Code Description Data Nataly rce(s) Supporting Document(s) Phosphorus 2.5-4.9 Normal (applies to non-numeric resul ts) [facility] ID Date Data Source [id number] 03/26/2020 05:53:00 AM [facility] Name Value Range Interpretation Code Description Data Nataly rce(s) Supporting Document(s) Sodium 135 mmol/L 136-145 Below low normal [facility] ospital Potassium 3.5-5.1 Normal (applies to non-numeric resul ts) [facility] Chloride 95 mmol/L 98-107 Below low normal [facility] spital Carbon Dioxide CO2 21-32 Normal (applies to non-numer ic results) [facility] Anion Gap 5.0-16.0 Normal (applies to non-numeric resul ts) [facility] BUN 5 mg/dL 7-18 Below low normal [facility] Creatinine,Serum 0.7-1.2 Normal (applies to non-numeric results) [facility] GFR >60 Normal (applies to non-numeric results) [facility] Glucose Level 90 mg/dL 60-99 Normal (applies to non-numeric re sults) [facility] Reference range is only applicable when patient is fasting Note the following drug interference: Sulfasalazine Sulfapyridine Can see falsely depressed Can see falsely elevated result with up to 17% results with up to 11% decrease in measurement increase in measurement Recommend patients be collected for this test prior to administration of either drug. Calcium 8.5-10.1 Normal (applies to non-numeric resul ts) [facility] Bilirubin,Total 0.1-1.9 Normal (applies to non-numeric results) [facility] SGOT(AST) 64 U/L 15-37 Above high normal [facility] ospital Note the following drug interference: Sulfasalazine Sulfapyridine Can see falsely depressed Can see falsely elevated result with up to 10% results with up to 10% decrease in measurement increase in measurement Recommend patients be collected for this test prior to administration of either drug. SGPT(ALT) 105 U/L 12-78 Above high normal [facility] ospital Note the following drug interference: Sulfasalazine Sulfapyridine Can see falsely depressed Can see falsely elevated result with up to 29% results with up to 10% decrease in measurement increase in measurement Recommend patients be collected for this test prior to administration of either drug. Alkaline Phosphatase 106 U/L 38-126 Normal (applies to non-num sue results) [facility] can increase Alkaline Phosp le vels up to 2 times the normal adult value. Normal values for children and adolescents are 2 to 3 times the normal adult value. Total Protein 6.0-8.2 Normal (applies to non-numeric re sults) [facility] Albumin Level 3.4-5.0 Normal (applies to non-numeric re sults) [facility] ID Date Data Source [id number] 03/26/2020 05:53:00 AM EST [facility] Name Value Range Interpretation Code Description Data Nataly rce(s) Supporting Document(s) Magnesium 1.8-2.4 Normal (applies to non-numeric resul ts) [facility] ID Date Data Source [id number] 03/26/2020 02:50:00 PM EST [facility] Name Value Range Interpretation Code Description Data Nataly rce(s) Supporting Document(s) CPK result 237 U/L 26-192 Soni [facility] Test Performed By: [facility] [address] [place] [address] Director: Malaika Zamarripa MD ID Date Data Source [id number] 03/26/2020 02:50:00 PM [facility] Value Range Interpretation Code Description Data Nataly rce(s) Supporting Document(s) Syphilis Serology result Nonreactive Normal (applies to non-numeric results) [facility] Test Performed By: [facility] [address] [place] [address] Director: Malaika Zamarripa MD ID Date Data Source [id number] 03/26/2020 01:59:00 PM EST [facility] Value Range Interpretation Code Description Data Nataly rce(s) Supporting Document(s) Syphilis Serology Nonreactive Normal (applies to non-numer ic results) [facility] Test Performed By: [facility] [address] [place] [address] Director: Malaika Zamarripa MD ID Date Data Source [id number] 03/26/2020 01:56:00 PM [facility] Value Range Interpretation Code Description Data Nataly rce(s) Supporting Document(s) CPK 237 U/L 26-192 Above high normal [facility] Test Performed By: [facility] [address] [place] [address] Director: Malaika Zamarripa MD ID Date Data Source [id number] 03/26/2020 11:41:00 AM [facility] Value Range Interpretation Code Description Data Nataly rce(s) Supporting Document(s) Reticulocyte Count 0.50-1.81 Normal (applies to non-numer ic results) [facility] ID Date Data Source [id number] 03/26/2020 05:28:00 AM EST [facility] Name Value Range Interpretation Code Description Data Nataly rce(s) Supporting Document(s) Ethanol Less than 10.0 Normal (applies to non-numeric r esults) [facility] ID Date Data Source [id number] 03/26/2020 05:02:00 AM EST [facility] Name Value Range Interpretation Code Description Data Nataly rce(s) Supporting Document(s) White Blood Count 3.5-10.5 Normal (applies to non-numeri c results) [facility] Red Blood Count 3.90-5.00 Below low normal [facility] Hemoglobin 12.0-15.5 Below low normal [facility] ospital Hematocrit 34.9-44.5 Below low normal [facility] ospital Mean Corpuscular Volume 81.2-95.1 Normal (applies to non- numeric results) [facility] Mean Corpuscular Hgb 25.6-32.2 Normal (applies to non-num sue results) [facility] Mean Corpuscular Hgb Conc 32.0-36.0 Normal (applies to no n-numeric results) [facility] Red Cell Distribution Width 11.9-15.5 Above high normal [facility] Platelet Count 149 x10 3/uL 150-450 Below low normal [facility] Mean Platelet Volume 9.4-12.4 Below low normal [facility] Neutrophils% (Auto) 31.0-71.0 Normal (applies to non-nume gucci results) [facility] Lymphocytes% (Auto) 20.0-55.0 Normal (applies to non-nume gucci results) [facility] Monocytes% (Auto) 4.0-12.0 Normal (applies to non-numeri c results) [facility] Eosinophils% (Auto) 1.0-8.0 Normal (applies to non-nume gucci results) [facility] Basophils% (Auto) 0.0-2.0 Normal (applies to non-numeri c results) [facility] Immature Granulocytes% (Auto) 0.0-2.0 Normal (racquel lies to non-numeric results) [facility] Neutrophils# (Auto) 1.50-6.20 Normal (applies to non-nume gucci results) [facility] Lymphocytes# (Auto) 1.20-4.00 Below low normal [facility] Monocytes# (Auto) 0.00-0.90 Normal (applies to non-numeri c results) [facility] Eosinophils# (Auto) 0.00-0.50 Normal (applies to non-nume gucci results) [facility] Basophils# (Auto) 0.00-0.20 Normal (applies to non-numeri c results) [facility] Immature Granulocytes# (Auto) 0.00-7.00 No rmal (applies to non-numeric results) [facility] ID Date Data Source [id number] 04/02/2020 12:13:00 AM [facility] Name Value Range Interpretation Code Description Data Nataly rce(s) Supporting Document(s) Vitamin D 1,25 result 60 pg/mL 18-78 Normal (applies to non-nu meric results) [facility] ADDITIONAL INFORMATIO N This test was developed and its performance characteristics determined by [facility] in a manner consistent with CLIA requirements. This test has not been cleared or approved by the U.S. Food and Drug Administration. Test Performed by: [facility] [place] [address] Chief Chemist: Yves Enciso M.D. Ph.D.; CLIA# [id number] ID Date Data Source [id number] 03/28/2020 05:44:00 PM [facility] Name Value Range Interpretation Code Description Data Nataly rce(s) Supporting Document(s) Chlamydia,Urine Negative Normal (applies to non-numeric results) [facility] Test Performed By: [facility] [address] [place] [address] Director: Malaika Zamarripa MD . GC Urine Negative Normal (applies to non-numeric resul ts) [facility] Test Performed By: [facility] [address] [place] [address] Director: Malaika Zamarripa MD . Methodology: Second generation nucleic acid amplification. ID Date Data Source [id number] 03/27/2020 11:31:00 AM [facility] Procedure Performed By: [facility] [address] [place] [address] Director: Latanya Zamarripa MD Name Value Range Interpretation Code Description Data Nataly rce(s) Supporting Document(s) Urine Culture Normal (applies to non-numeric re sults) [facility] ID Date Data Source [id number] 03/26/2020 06:59:00 AM [facility] Collected By: Nurse's Aide Initials: HR Collected By: Nurse's Aide Initials: HR Name Value Range Interpretation Code Description Data Nataly rce(s) Supporting Document(s) RBC,Urine None Seen [facility] WBC,Urine None Seen [facility] Casts,Urine None Seen Normal (applies to non-numeric resu lts) [facility] Epithelial Cells,Urine None - Few [facility] Squamous Cells,Urine None Seen [facility] Bacteria,Urine None Seen [facility] ital Mucus,Urine None Seen [facility] ID Date Data Source [id number] 03/26/2020 06:59:00 AM [facility] Collected By: Nurse's Aide Initials: HR Collected By: Nurse's Aide Initials: HR Name Value Range Interpretation Code Description Data Nataly rce(s) Supporting Document(s) Color,Urine Colorl-Dk Y Normal (applies to non-numeric res ults) [facility] Clarity,Urine Clear Normal (applies to non-numeric re sults) [facility] Specific [place],Urine 1.005-1.030 Normal (applies to non- numeric results) [facility] pH,Urine 5.0-8.0 Normal (applies to non-numeric resul ts) [facility] Protein,[facility]rine Negative [facility] Glucose,Urine Negative Normal (applies to non-numeric re sults) [facility] Ketones,Urine Negative Normal (applies to non-numeric re sults) [facility] Blood,Urine Negative Normal (applies to non-numeric resu lts) [facility] Bilirubin,Urine Negative Normal (applies to non-numeric results) [facility] Urobilinogen,Urine 0.2-1.0 Normal (applies to non-numer ic results) [facility] Leukocyte Esterase,Urine Negative [facility] Nitrite,Urine Negative Normal (applies to non-numeric re sults) [facility] ID Date Data Source [id number] 03/26/2020 06:30:00 AM [facility] Name Value Range Interpretation Code Description Data Nataly rce(s) Supporting Document(s) UDS Benzodiazepines Screen Negative [facility] UDS Cocaine Screen Negative Normal (applies to non-numer ic results) [facility] UDS Ampetamine Screen Negative Normal (applies to non-nu meric results) [facility] UDS Cannabinoids Screen Negative Normal (applies to non- numeric results) [facility] UDS Opiates Screen Negative Normal (applies to non-numer ic results) [facility] UDS Barbiturates Screen Negative Normal (applies to non- numeric results) [facility] Threshold Levels Benzodiazepine 200 ng/mL Cocaine 300 ng/mL Amphetamines 1000 ng/mL Cannabinoids (THC) 50 ng/mL Opiates 300 ng/mL Barbiturates 200 ng/mL All positive findings are presumptive and unconfirmed. Confirmation of positive results are performed only at request of provider. Unconfirmed results must not be used for non-medical purposes (i.e. preemployment and legal purposes) ID Date Data Source [id number] 03/28/2020 06:20:00 PM [facility] Name Value Range Interpretation Code Description Data Nataly rce(s) Supporting Document(s) Chlamydia,Urine result Negative Normal (applies to non-n umeric results) [facility] Test Performed By: [facility] [address] [place] [address] Director: Malaika Zamarripa MD . GC Urine result Negative Normal (applies to non-numeric results) [facility] Test Performed By: [facility] [address] [place] [address] Director: Malaika Zamarripa MD . Methodology: Second generation nucleic acid amplification. ID Date Data Source [id number] 03/26/2020 01:10:00 AM EST [facility] Name Value Range Interpretation Code Description Data Nataly rce(s) Supporting Document(s) SARS coronavirus 2 RNA [Presence] in Res piratory specimen by SELMA with probe detection NEGATIVE [facility] This lab was ordered by [facility] a nd reported by [facility]. ID Date Data Source [id number] 03/05/2020 03:31:00 PM EST [facility] Name Value Range Interpretation Code Description Data Nataly rce(s) Supporting Document(s) SARS coronavirus 2 RNA [Presence] in Res piratory specimen by SELMA with probe detection [facility] This lab was ordered by [facility] a nd reported by [facility]. ID Date Data Source [id number] 02/28/2020 07:24:00 AM EST [facility] Name Value Range Interpretation Code Description Data Nataly rce(s) Supporting Document(s) SARS coronavirus 2 RNA [Presence] in Res piratory specimen by SELMA with probe detection [facility] This lab was ordered by [facility] a nd reported by [facility]. Procedure Social History Code Duration Value Status Description Data Source(s ) Smoking 09/30/2020 12:00:00 AM EDT Current Smoker completed Curre nt Smoker eCW1 ([facility]) Smoking 09/30/2020 12:00:00 AM EDT Current Smoker completed Curre nt Smoker eCW1 ([facility]) Smoking 09/30/2020 12:00:00 AM EDT Current Smoker completed Curre nt Smoker eCW1 ([facility]) Smoking 09/30/2020 12:00:00 AM EDT Current Smoker completed Curre nt Smoker eCW1 ([facility]) Smoking 09/30/2020 12:00:00 AM EDT Current Smoker completed Curre nt Smoker eCW1 ([facility]) Smoking 07/03/2020 12:00:00 AM EDT Current Smoker completed Curre nt Smoker eCW1 ([facility]) Smoking 07/03/2020 12:00:00 AM EDT Current Smoker completed Curre nt Smoker eCW1 ([facility]) Smoking 07/03/2020 12:00:00 AM EDT Current Smoker completed Curre nt Smoker eCW1 ([facility]) Smoking 07/03/2020 12:00:00 AM EDT Current Smoker completed Curre nt Smoker eCW1 ([facility]) Smoking 05/30/2020 12:00:00 AM EST Current Smoker completed Curre nt Smoker eCW1 ([facility]) Smoking 04/21/2020 12:00:00 AM EST Current Smoker completed Curre nt Smoker eCW1 ([facility]) Smoking 04/08/2020 12:00:00 AM EST Current Smoker completed Curre nt Smoker eCW1 ([facility]) Smoking 04/08/2020 12:00:00 AM EST Current Smoker completed Curre nt Smoker eCW1 ([facility]) Smoking 04/08/2020 12:00:00 AM EST Current Smoker completed Curre nt Smoker eCW1 ([facility]) Vital Signs ID Date Data Source UNK Name Value Range Interpretation Code Description Data Source(s) Body temperature 97.5 [degF] 97.5 [degF] MEDENT ([facility] ) Body height 65.50 [in_i] 65.50 [in_i] MEDENT ([facility] ) 5'5.50" Body weight 142.12 [lb_av] 142.12 [lb_av] MEDEN T ([facility] ) Body mass index (BMI) [Ratio] 23.3 kg/m2 23.3 k g/m2 MEDENT ([facility] ) Body weight 143 [lb_av] 143 [lb_av] eCW1 ([facility]) Body height 66 [in_i] 66 [in_i] eCW1 ([facility]) Body mass index (BMI) [Ratio] 23.08 kg/m2 23.08 kg/m2 eCW1 ([facility]) Heart rate 105 /min 105 /min eCW1 ([facility]) Respiratory rate 18 /min 18 /min eCW1 ([facility]) Body temperature 97.2 [degF] 97.2 [degF] eCW1 ( [facility]) Systolic blood pressure 110 mm[Hg] 110 mm[Hg] e CW1 ([facility]) Diastolic blood pressure 70 mm[Hg] 70 mm[Hg] eCW1 ([facility]) Body weight 158 [lb_av] 158 [lb_av] eCW1 ([facility]) Body height 66 [in_i] 66 [in_i] eCW1 ([facility]) Body mass index (BMI) [Ratio] 25.50 kg/m2 25.50 kg/m2 eCW1 ([facility]) Heart rate /min eCW1 ([facility]) Respiratory rate 18 /min 18 /min eCW1 ([facility]) Body temperature 98.7 [degF] 98.7 [degF] eCW1 ( [facility]) Systolic blood pressure 126 mm[Hg] 126 mm[Hg] e CW1 ([facility]) Diastolic blood pressure 78 mm[Hg] 78 mm[Hg] eCW1 ([facility]) Respiratory rate 18 /min 18 /min eCW1 ([facility]) Body weight 154 [lb_av] 154 [lb_av] eCW1 ([facility]) Body height 66 [in_i] 66 [in_i] eCW1 ([facility]) Body temperature 98.4 [degF] 98.4 [degF] eCW1 ( [facility]) Body mass index (BMI) [Ratio] 24.85 kg/m2 24.85 kg/m2 eCW1 ([facility]) Heart rate 107 /min 107 /min eCW1 ([facility]) Systolic blood pressure 96 mm[Hg] 96 mm[Hg] e CW1 ([facility]) Diastolic blood pressure 66 mm[Hg] 66 mm[Hg] eCW1 ([facility]) Body weight 153 [lb_av] 153 [lb_av] eCW1 ([facility]) Body height 66 [in_i] 66 [in_i] eCW1 ([facility]) Body mass index (BMI) [Ratio] 24.69 kg/m2 24.69 kg/m2 eCW1 ([facility]) Heart rate 104 /min 104 /min eCW1 ([facility]) Respiratory rate 18 /min 18 /min eCW1 ([facility]) Body temperature 97.0 [degF] 97.0 [degF] eCW1 ( [facility]) Systolic blood pressure 104 mm[Hg] 104 mm[Hg] e CW1 ([facility]) Diastolic blood pressure 62 mm[Hg] 62 mm[Hg] eCW1 ([facility]) ID Date Data Source [id number] 04/01/2020 10:39:00 PM EST [facility] Name Value Range Interpretation Code Description Data Source(s) Weight (Calculated Kilograms) 63.50 63.50 [facility] Height (Calculated Centimeters) 167.64 167. 64 [facility] Body Mass Index (BMI) 22.6 22.6 [facility] ID Date Data Source [id number] 04/29/2020 01:30:00 PM EST [facility] spital Name Value Range Interpretation Code Description Data Source(s) Weight Measurement Method 8 8 [facility] Weight (Calculated Kilograms) 63.50 63.50 [facility] Weight 2240 2240 [facility] pital Temperature Source 7 7 [facility] Temperature 97.9 97.9 [facility] spital Respiratory Effort 1 1 [facility] Respiratory Rate 20 20 [facility] [facility] Pulse Assessment Method [address] [facility] Pulse Rate 112 112 [facility] Height (Calculated Centimeters) 167.64 167. 64 [facility] Height 66 66 [facility] pital Blood Pressure 110/80 110/80 [facility] Body Mass Index (BMI) 22.6 22.6 [facility] Weight Measurement Method 8 8 [facility] Weight (Calculated Kilograms) 63.50 63.50 [facility] Weight 2240 2240 [facility] pital Temperature Source 7 7 [facility] Temperature 97.9 97.9 [facility] Respiratory Effort 1 1 [facility] Respiratory Rate 20 20 [facility] Pulse Assessment Method 4 [address] [facility] Pulse Rate 112 112 [facility] pital Height (Calculated Centimeters) 167.64 167. 64 [facility] Height 66 66 [facility] pital Blood Pressure 110/80 110/80 [facility] Body Mass Index (BMI) 22.6 22.6 [facility] Weight Measurement Method 8 8 [facility] Weight (Calculated Kilograms) 63.50 63.50 [facility] Weight 2240 2240 [facility] pital Temperature Source 7 7 [facility] Temperature 97.9 97.9 [facility] Res[facility] Effort 1 1 [facility] Respiratory Rate 20 20 [facility] Pulse Assessment Method 4 [address] [facility] Pulse Rate 112 112 [facility] pital Height (Calculated Centimeters) 167.64 167. 64 [facility] Height 66 66 [facility] 110/80 110/80 [facility] Body Mass Index (BMI) 22.6 22.6 [facility] Weight Measurement Method 8 8 [facility] Weight (Calculated Kilograms) 63.50 63.50 [facility] Weight 2240 2240 [facility] pital Temperature Source 7 7 [facility] Temperature 97.2 97.2 [facility] Respiratory Effort 1 1 [facility] Respiratory Rate 14 14 [facility] Pulse Assessment Method 4 [address] [facility] Pulse Rate 85 85 [facility] Height (Calculated Centimeters) 167.64 167. 64 [facility] Height 66 66 [facility] Blood Pressure 107/75 107/75 [facility] Body Mass Index (BMI) 22.6 22.6 [facility] Weight (Calculated Kilograms) 63.50 63.50 [facility] Height (Calculated Centimeters) 167.64 167. 64 [facility] Body Mass Index (BMI) 22.6 22.6 [facility] ID Date Data Source [id number] 12/20/2019 12:06:00 AM EDT [facility] Name Value Range Interpretation Code Description Data Source(s) Weight (Calculated Kilograms) 63.50 63.50 [facility] Height (Calculated Centimeters) 167.64 167. 64 [facility] Body Mass Index (BMI) 22.6 22.6 [facility] Weight (Calculated Kilograms) 63.50 63.50 [facility] Height (Calculated Centimeters) 167.64 167. 64 [facility] Body Mass Index (BMI) 22.6 22.6 [facility] ID Date Data Source [id number] 12/20/2019 10:54:00 AM EDT [facility] Name Value Range Interpretation Code Description Data Source(s) Weight Measurement Method 1 1 [facility] Weight (Calculated Kilograms) 63.50 63.50 [facility] Weight 2400 2400 [facility] Temperature Source 7 7 [facility] Temperature 98.4 98.4 [facility] Respiratory Effort 1 1 [facility] Respiratory Rate 16 16 [facility] Pulse Assessment Method 4 4 [facility] Pulse Rate 55 55 [facility] Height (Calculated Centimeters) 167.64 167. 64 [facility] Height 66 66 [facility] Blood Pressure 98/64 98/64 [facility] Body Mass Index (BMI) 22.6 22.6 [facility] Weight Measurement Method 1 1 [facility] Weight (Calculated Kilograms) 63.50 63.50 [facility] Weight 2400 2400 [facility] Temperature Source 7 7 [facility] Temperature 98.4 98.4 [facility] Respiratory Effort 1 1 [facility] Respiratory Rate 16 16 [facility] Pulse Assessment Method 4 4 [facility] Pulse Rate 55 55 [facility] Height (Calculated Centimeters) 167.64 167. 64 [facility] Height 66 66 [facility] Blood Pressure 98/64 98/64 [facility] Body Mass Index (BMI) 22.6 22.6 [facility] Weight Measurement Method 1 1 [facility] Weight (Calculated Kilograms) 63.50 63.50 [facility] Weight 2400 2400 [facility] Temperature Source 7 7 [facility] Temperature 98.4 98.4 [facility] Respiratory Effort 1 1 [facility] Respiratory Rate 16 16 [facility] Pulse Assessment Method 4 4 [facility] Pulse Rate 55 55 [facility] Height (Calculated Centimeters) 167.64 167. 64 [facility] Height 66 66 [facility] Blood Pressure 98/64 98/64 [facility] Body Mass Index (BMI) 22.6 22.6 [facility] Weight Measurement Method 1 1 [facility] Weight (Calculated Kilograms) 63.50 63.50 [facility] Weight 2240 2240 [facility] Temperature Source 7 7 [facility] Temperature 97.6 97.6 [facility] Respiratory Effort 1 1 [facility] Respiratory Rate 16 16 [facility] Pulse Assessment Method 4 4 [facility] Pulse Rate 74 74 [facility] Height (Calculated Centimeters) 167.64 167. 64 [facility] Height 66 66 [facility] Blood Pressure 126/82 126/82 [facility] Body Mass Index (BMI) 22.6 22.6 [facility] Weight Measurement Method 1 1 [facility] Weight (Calculated Kilograms) 63.50 63.50 [facility] Weight 2240 2240 [facility] Temperature Source 7 7 [facility] Temperature 97.6 97.6 [facility] Respiratory Effort 1 1 [facility] Respiratory Rate 18 18 [facility] Pulse Assessment Method 4 4 [facility] Pulse Rate 74 74 [facility] Height (Calculated Centimeters) 167.64 167. 64 [facility] Height 66 66 [facility] Blood Pressure 126/82 126/82 [facility] Body Mass Index (BMI) 22.6 22.6 [facility] Weight (Calculated Kilograms) 63.50 63.50 [facility] Height (Calculated Centimeters) 167.64 167. 64 [facility] Body Mass Index (BMI) 22.6 22.6 [facility] ID Date Data Source [id number] 12/25/2019 08:28:00 AM EDT [facility] spital Name Value Range Interpretation Code Description Data Source(s) Weight Measurement Method 8 8 [facility] Weight (Calculated Kilograms) 63.50 63.50 [facility] Weight 2240 2240 [facility] pital Temperature Source 7 7 [facility] Temperature 98.8 98.8 [facility] spital Respiratory Effort 1 1 [facility] Respiratory Rate 18 18 [facility] Pulse Assessment Method 4 [address] [facility] Pulse Rate 86 86 [facility] Height (Calculated Centimeters) 167.64 167. 64 [facility] Height 66 66 [facility] Blood Pressure 121/86 121/86 [facility] Body Mass Index (BMI) 22.6 22.6 [facility] Weight Measurement Method 8 8 [facility] Weight (Calculated Kilograms) 63.50 63.50 [facility] Weight 2240 2240 [facility] pital Temperature Source 1 1 [facility] Temperature 98.7 98.7 [facility] spital Respiratory Effort 1 1 [facility] Respiratory Rate 20 20 [facility] Pulse Assessment Method 4 [address] [facility] Pulse Rate 114 114 [facility] pital Height (Calculated Centimeters) 167.64 167. 64 [facility] Height 66 66 [facility] Blood Pressure 131/96 131/96 [facility] Body Mass Index (BMI) 22.6 22.6 [facility] Weight Measurement Method 8 8 [facility] Weight (Calculated Kilograms) 63.50 63.50 [facility] Weight 2240 2240 [facility] pital Temperature Source 1 1 [facility] Temperature 98.7 98.7 [facility] spital Respiratory Effort 1 1 [facility] Respiratory Rate 20 20 [facility] Pulse Assessment Method 4 [address] [facility] Pulse Rate 114 114 [facility] pital Height (Calculated Centimeters) 167.64 167. 64 [facility] Height 66 66 [facility] Blood Pressure 131/96 131/96 [facility] Body Mass Index (BMI) 22.6 22.6 [facility] Weight (Calculated Kilograms) 63.[address] [place] [address] Height (Calculated Centimeters) 167.64 167. 64 [facility] Body Mass Index (BMI) 22.6 22.6 [facility] Weight (Calculated Kilograms) 63. 63.[address] [place] [address] Height (Calculated Centimeters) 167.64 167. 64 [facility] Body Mass Index (BMI) 22.6 226 [facility] Patient Treatment Plan of Care Planned Activity Planned Date Details Description Data Source (s) Acamprosate calcium 333 MG Delayed Release Oral Tablet 09/23/2020 12:00:00 AM EDT [facility] ([facility]) Acamprosate calcium 333 MG Delayed Release Oral Tablet 09/13/2020 12:00:00 AM [facility] Acamprosate calcium 333 MG Delayed Release Oral Tablet 09/13/2020 12:00:00 AM [facility] quetiapine 25 MG Oral Tablet [Seroquel] 04/08/2020 12:00:00 AM EST eCW1 ([facility]) Naltrexone 112 MG/ML Injectable Suspension [Vivitrol] 04/08/2020 12:00:00 AM EST eCW1 ([facility]) Naltrexone 112 MG/ML Injectable Suspension [Vivitrol] 04/08/2020 12:00:00 AM EST eCW1 ([facility]) quetiapine 25 MG Oral Tablet [Seroquel] 04/08/2020 12:00:00 AM EST eCW1 ([facility]) Naltrexone 112 MG/ML Injectable Suspension [Vivitrol] 04/08/2020 12:00:00 AM EST eCW1 ([facility]) Naltrexone 112 MG/ML Injectable Suspension [Vivitrol] 04/08/2020 12:00:00 AM EST eCW1 ([facility]) quetiapine 25 MG Oral Tablet [Seroquel] 04/08/2020 12:00:00 AM EST eCW1 ([facility]) Naltrexone 112 MG/ML Injectable Suspension [Vivitrol] 04/08/2020 12:00:00 AM EST eCW1 ([facility]) Naltrexone 112 MG/ML Injectable Suspension [Vivitrol] 04/08/2020 12:00:00 AM EST eCW1 ([facility])
[2021-02-07 16:19] LABS: HEMATOCRIT 38.4 % (36.0-47.0); HEMOGLOBIN 12.1 g/dl (12.0-15.5); MEAN CORPUSCULAR HEMOGLOBIN 26.9 pg (27.0-33.0); MEAN CORPUSCULAR HGB CONC 31.5 g/dl (32.0-36.5); MEAN CORPUSCULAR VOLUME 85.5 fl (80.0-96.0); PLATELET COUNT, AUTOMATED 287 10^3/uL (150-450); RED BLOOD COUNT 4.49 10^6/uL (4.00-5.40); WHITE BLOOD COUNT 3.8 10^3/uL (4.0-10.0)
[2021-02-07] MEDS ORDERED: MULTIVITAMIN -ADULT INJECTION 10 ML, THIAMINE INJection 100 MG, FOLIC ACID 1 MG in NS 1... IV ONE (16:25)
[2021-02-07 16:41] LABS: HCG, SERUM QUALITATIVE NEGATIVE (NEGATIVE)
[2021-02-07 16:53] LABS: ACETAMINOPHEN LEVEL < 2.0 UG/ML (10.0-30.0); ALBUMIN 3.6 GM/DL (3.2-5.2); ALT/SGPT 50 U/L (12-78); BILIRUBIN,DIRECT 0.2 MG/DL (0.0-0.2); BILIRUBIN,TOTAL 0.5 MG/DL (0.2-1.0); BLOOD UREA NITROGEN 4 MG/DL (7-18); CALCIUM LEVEL 8.6 MG/DL (8.5-10.1); CARBON DIOXIDE LEVEL 25 MEQ/L (21-32); CHLORIDE LEVEL 105 MEQ/L (98-107); CREATININE FOR GFR 0.61 MG/DL (0.55-1.30); ETHYL ALCOHOL (ETHANOL) 0.208 % (0.000-0.010); GLOMERULAR FILTRATION RATE > 60.0 (>60); GLUCOSE, FASTING 70 MG/DL (70-100); LIPASE 170 U/L (73-393); POTASSIUM SERUM 3.9 MEQ/L (3.5-5.1); SALICYLATE LEVEL < 1.7 MG/DL (5.0-30.0); SODIUM LEVEL 140 MEQ/L (136-145); TOTAL PROTEIN 7.2 GM/DL (6.4-8.2)
[2021-02-07 17:22] LABS: AMPHETAMINES LEVEL URINE NEGATIVE (NEGATIVE); BARBITURATES URINE NEGATIVE (NEGATIVE); BENZODIAZEPINES URINE NEGATIVE (NEGATIVE); CANNABINOIDS URINE NEGATIVE (NEGATIVE); COCAINE METABOLITE URINE NEGATIVE (NEGATIVE); METHADONE URINE NEGATIVE (NEGATIVE); OPIATES URINE NEGATIVE (NEGATIVE); PHENCYCLIDINE URINE NEGATIVE (NEGATIVE)
[2021-02-07] MEDS ORDERED: LORazepam 2 MG TAB PO PRN (17:25)
[2021-02-07] MEDS ORDERED: HOME MED LIST COMPLETE! XX SCH (20:30)
[2021-02-07] MEDS ORDERED: ACETAMINOPHEN TAB 650MG DOSE (2X325MG) PO PRN (20:40)
--- NOTE | 2021-02-07 20:43 | ECGEPIP ---
[facility] - ED Test Date: 2021-02-07 Pat Name: TAI ARAYA Department: Room: - Gender: Female [employer]: NASEEM : [id number] Requested By: Paige Ledesma PA-C Order Number: [id number] Reading MD: Kym Linder Measurements Intervals [place] Rate: 91 P: 15 ID: [id number] QRS: 18 QRSD: 78 T: 39 QT: 360 QTc: 442 Interpretive Statements Normal sinus rhythm with sinus arrhythmia delayed r progression decreased rate 12/29/20 Electronically Signed on 02-07-2021 20:43:54 EST by Kym Linder
--- OUTSIDE RECORDS SUMMARY | 2021-02-07 20:58 | CCD ---
Author Author [facility] Organization [facility] Address Unknown Phone Unavailable Care Team Providers Care Cottrell Blower Name Role Phone Salena AQUINO Unavailable Unavailable ZENICOLELNichole VENEER TAPING MACHINE OPERATOR Unavailable Unavailable ZEGIL D GEORGE VENEER TAPING MACHINE OPERATOR Unavailable Unavailable ROBL, D GEORGE VENEER TAPING MACHINE OPERATOR Unavailable Unavailable Jenni Spring MD Unavailable Unavailable [...] CIERRA ESTRELLA Unavailable Unavailable Sienkiewycz, L Dianne STITCH BONDER MACHINE OPERATOR HELPER Unavailable Unavailable Sienkiewycz, L Dianne STITCH BONDER MACHINE OPERATOR HELPER Unavailable Unavailable Sienkiewycz, L Dianne STITCH BONDER MACHINE OPERATOR HELPER Unavailable Unavailable Sienkiewycz, L Dianne STITCH BONDER MACHINE OPERATOR HELPER Unavailable Unavailable Sienkiewycz, L Dianne STITCH BONDER MACHINE OPERATOR HELPER Unavailable Unavailable Sienkiewycz, L Dianne STITCH BONDER MACHINE OPERATOR HELPER Unavailable Unavailable Sienkiewycz, L Dianne STITCH BONDER MACHINE OPERATOR HELPER Unavailable Unavailable Zamarripa, C Indira RPA-C Unavailable Unavailable Zamarripa, C Indira RPA-C Unavailable Unavailable Zamarripa, C Indira RPA-C Unavailable Unavailable Zamarripa, C Indira RPA-C Unavailable Unavailable Zamarripa, C Indira RPA-C Unavailable Unavailable Zamarripa, C Idnira RPA-C Unavailable Unavailable Zamarripa, C Indira RPA-C [...] is protected by Article 27-F of the [facility] Public Health law. If you continue you may have access to information: Regarding HIV / AIDS; Provided by facilities licensed or operated by the [facility] Office of Mental Health; or Provided by the [facility] Office for People With Developmental Disabilities. If such information is present, then the following [facility] mandated warning applies: This information has [...] law may result in a fine or mcfp sentence or both. A general authorization for the release of medical or other information is NOT sufficient authorization for further disc losure. Allergies and Adverse Reactions Type Description Substance Reaction Status Data Source(s ) Propensity to adverse reactions Propensity to adverse reacti ons No Known Drug Allergies [facility] Encounters Encounter Providers Location Date Indications Data Source(s ) Unknown [address] [facility] [place] [address] 12/19/2020 12:00:00 AM EDT eCW1 ([facility]) Unknown [address] [facility] [address] [place] [address] 12/15/2020 12:00:00 AM EDT eCW1 ([facility]) Outpatient [address] [facility] [place] [address] 10/24/2020 12:00:00 AM EDT eCW1 ([facility]) Outpatient Attender: Jason SAINZ Physical Therapy 02:45:00 PM EDT [facility] ([facility]) [place] [address] [facility] [place] [address] 09/30/2020 12:00:00 AM EDT eCW1 ([facility]) Unknown [address] [facility] [place] [address] 09/30/2020 12:00:00 AM EDT eCW1 ([facility]) [place] [address] [facility] [place] [address] 09/16/2020 12:00:00 AM EDT eCW1 ([facility]) Inpatient Attender: Cookie Spring MDAdmitter: Cookie navarro MD SURG-MED 09/12/2020 04:20:00 PM EDT - 09/13/2020 05:30:[address] [facility] Patient discharged. Inpatient Attender: Cookie Spring MDAdmitter: Cookie navarro MD SURG-MED 09/12/2020 04:20:[address] [facility] V Attender: Cookie Spring MDAdmitter: Cookie navarro MD SURG-MED 09/12/2020 02:55:[address] [facility] Patient admitted. Outpatient Attender: Dianne Cesar NP SURG-NPLAB 09/12/2020 02:01:[address] [facility] Unknown [address] [facility] [place] [address] 07/15/2020 12:00:00 AM EDT eCW1 ([facility]) [place] [address] [facility] [place] [address] 07/15/2020 12:00:00 AM EDT eCW1 ([facility]) Unknown [address] [facility] [place] [address] 07/08/2020 12:00:00 AM EDT [facility]CW1 [facility] [place] [address] [facility] [place] [address] 05/30/2020 12:00:00 AM EST eCW1 ([facility]) [place] [address] [facility] [place] [address] 04/21/2020 12:00:00 AM EST eCW1 ([facility]) [place] [address] [facility] [place] [address] 04/08/2020 12:00:00 AM EST eCW1 ([facility]) [place] [address] [facility] [place] [address] 04/08/2020 12:00:00 AM EST eCW1 ([facility]) Unknown [address] [facility] [place] [address] 04/08/2020 12:00:00 AM EST eCW1 ([facility]) Outpatient Attender: ANABELLA CARNESLABEJN 03/26/2020 09:45:00 AM E [facility] Inpatient Attender: Con Penaloza MDAdmitter: Con tyson MD [facility] 03/26/2020 04:22:00 AM EST - 03/29/2020 11:20:00 AM EST [id number] [facility] 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 Outpatient Attender: RAYRAY AQUINO 01/08/2020 06:00:00 PM [facility] Outpatient Attender: RAYRAY AQUINO 12/24/2019 04:00:00 PM [facility] Outpatient Attender: CIERRA ESTRELLA 12/24/2019 02:00:00 PM ED [facility] Outpatient Attender: Indira BUCKLEY CPSCALOR-CHEPDREH 12/19/2019 08:30:00 AM EDT - 12/19/2019 08:31:00 AM EDT MAR [facility] pital MAR Patient discharged. Inpatient Attender: Madue Pina nder: MAUDE ALVAREZ MDAdmitter: MAUDE ALVAREZ MD CPSCALOR-CHEPPDREH 11/24/2019 09:54:00 AM EDT - 12/19/2019 06:02:00 AM EDT PSYCHOACTIVE SUBSTANCE DEPENDENCE [facility] PSYCHOACTIVE SUBSTANCE DEPENDENCE Patient discharged. Emergency Attender: GEORGE DIA [facility] ED-ED 03/2019 06:06:00 PM EDT - 11/20/2019 10:45:00 PM EDT [facility] Patient discharged. Immunizations Vaccine Date Status Description Data Source(s) 10/24/2020 09:51:00 AM EDT completed e CW1 ([facility]) 10/24/2020 09:51:00 AM EDT completed e CW1 ([facility]) 07/15/2020 09:52:00 AM EDT completed e CW1 ([facility]) 07/15/2020 09:52:00 AM EDT completed e CW1 ([facility]) 07/15/2020 09:52:00 AM EDT completed e CW1 ([facility]) 07/15/2020 09:52:00 AM EDT completed e CW1 ([facility]) 07/15/2020 09:52:00 AM EDT completed e CW1 ([facility]) 07/15/2020 09:52:00 AM EDT completed e CW1 ([facility]) 07/15/2020 09:52:00 AM EDT completed e CW1 ([facility]) 07/15/2020 09:52:00 AM EDT completed e CW1 ([facility]) Medications Medication Brand Name Start Date Product [...] 1.0 {tablet} active Disulfiram 250 MG eCW1 ([facility]) Disulfiram 250 MG Oral Tablet Disulfiram 250 MG 12/12/2020 12:00:00 AM EDT 1.0 {tablet} active Disulfiram 250 MG eCW1 ([facility]) 250 mg 09/30/2020 12:00:00 AM EDT tablet [...] ts} active Acamprosate Calcium 333 MG eCW1 ([facility]) Acamprosate calcium 333 MG Delayed Relea se Oral Tablet Acamprosate Calcium 333 MG Acamprosate Calcium 333 MG 09/23/2020 12:00:00 AM EDT 2.0 {table ts} active Acamprosate Calcium 333 MG eCW1 ([facility]) Acamprosate calcium 333 MG Delayed Relea se Oral Tablet Acamprosate Calcium 333 MG Acamprosate Calcium 333 MG 09/23/2020 12:00:00 AM EDT 2.0 {table ts} active Acamprosate Calcium 333 MG eCW1 ([facility]) Acamprosate calcium 333 MG Delayed Relea se Oral Tablet Acamprosate Calcium 333 MG Acamprosate Calcium 333 MG 09/23/2020 12:00:00 AM EDT 2.0 {table ts} active Acamprosate Calcium 333 MG eCW1 ([facility]) Acamprosate calcium 333 MG Delayed Relea se Oral Tablet Acamprosate Calcium 333 MG Acamprosate Calcium 333 MG 09/23/2020 12:00:00 AM EDT 2.0 {table ts} active Acamprosate Calcium 333 MG eCW1 ([facility]) Acamprosate calcium 333 MG Delayed Relea se Oral Tablet Acamprosate Calcium 333 MG Acamprosate Calcium 333 MG 09/23/2020 12:00:00 AM EDT 2.0 {table ts} active Acamprosate Calcium 333 MG eCW1 ([facility]) Acamprosate calcium 333 MG Delayed Relea se Oral Tablet Acamprosate Calcium 333 Mg Tablet.dr Dick, 666 Mg Oral Acamprosate Calcium 333 Mg Tablet.dr Dick, 666 Mg Oral 09/13/2020 12:00:00 AM EDT 666 completed [facility] Times a [facility] Acamprosate calcium 333 MG Delayed Relea se Oral Tablet Acamprosate Calcium 333 MG TABLET. Acamprosate Calcium 333 MG TABLET. 09/13/2020 12:00:00 AM EDT 666 completed Three Times a Day [facility] 25 mg 09/08/2020 12:00:00 AM EDT capsule [...] 1.0 {tablet_at_bedtime} active SEROquel 25 MG eCW1 ([facility]) Naltrexone 112 MG/ML Injectable Suspension [Vivitrol] Vivitrol 380 MG Vivitrol 380 MG 04/08/2020 12:00:00 AM EST 4.0 {ml} active Vivitrol 380 MG eCW1 ([facility]) Naltrexone 112 MG/ML Injectable Suspension [Vivitrol] Vivitrol 380 MG Vivitrol 380 MG 04/08/2020 12:00:00 AM EST 4.0 {ml} active Vivitrol 380 MG eCW1 ([facility]) Naltrexone 112 MG/ML Injectable Suspension [Vivitrol] Vivitrol 380 MG Vivitrol 380 MG 04/08/2020 12:00:00 AM EST 4.0 {ml} active Vivitrol 380 MG eCW1 ([facility]) Naltrexone 112 MG/ML Injectable Suspension [Vivitrol] Vivitrol 380 MG Vivitrol 380 MG 04/08/2020 12:00:00 AM EST 4.0 {ml} active Vivitrol 380 MG eCW1 ([facility]) Naltrexone 112 MG/ML Injectable Suspension [Vivitrol] Vivitrol 380 MG Vivitrol 380 MG 04/08/2020 12:00:00 AM EST 4.0 {ml} active Vivitrol 380 MG eCW1 ([facility]) Naltrexone 112 MG/ML Injectable Suspension [Vivitrol] Vivitrol 380 MG Vivitrol 380 MG 04/08/2020 12:00:00 AM EST 4.0 {ml} active Vivitrol 380 MG eCW1 ([facility]) Naltrexone 112 MG/ML Injectable Suspension [Vivitrol] Vivitrol 380 MG Vivitrol 380 MG 04/08/2020 12:00:00 AM EST 4.0 {ml} active Vivitrol 380 MG eCW1 ([facility]) Naltrexone 112 MG/ML Injectable Suspension [Vivitrol] Vivitrol 380 MG Vivitrol 380 MG 04/08/2020 12:00:00 AM EST 4.0 {ml} active Vivitrol 380 MG eCW1 ([facility]) Naltrexone 112 MG/ML Injectable Suspension [Vivitrol] Vivitrol 380 MG Vivitrol 380 MG 04/08/2020 12:00:00 AM EST 4.0 {ml} active Vivitrol 380 MG eCW1 ([facility]) Naltrexone 112 MG/ML Injectable Suspension [Vivitrol] Vivitrol 380 MG Vivitrol 380 MG 04/08/2020 12:00:00 AM EST 4.0 {ml} active Vivitrol 380 MG eCW1 ([facility]) Naltrexone 112 MG/ML Injectable Suspension [Vivitrol] Vivitrol 380 MG Vivitrol 380 MG 04/08/2020 12:00:00 AM EST 4.0 {ml} active Vivitrol 380 MG eCW1 ([facility]) Naltrexone 112 MG/ML Injectable Suspension [Vivitrol] Vivitrol 380 MG Vivitrol 380 MG 04/08/2020 12:00:00 AM EST 4.0 {ml} active Vivitrol 380 MG eCW1 ([facility]) Naltrexone 112 MG/ML Injectable Suspension [Vivitrol] Vivitrol 380 MG Vivitrol 380 MG 04/08/2020 12:00:00 AM EST 4.0 {ml} active Vivitrol 380 MG eCW1 ([facility]) Naltrexone 112 MG/ML Injectable Suspension [Vivitrol] Vivitrol 380 MG Vivitrol 380 MG 04/08/2020 12:00:00 AM EST 4.0 {ml} active Vivitrol 380 MG eCW1 ([facility]) quetiapine 25 MG Oral Tablet [Seroquel] SEROquel 25 MG SEROq uel 25 MG 04/08/2020 12:00:00 AM EST 1.0 {tablet_at_bedtime} active SEROquel 25 MG eCW1 ([facility]) Naltrexone 112 MG/ML Injectable Suspension [Vivitrol] Vivitrol 380 MG Vivitrol 380 MG 04/08/2020 12:00:00 AM EST 4.0 {ml} active Vivitrol 380 MG eCW1 ([facility]) Naltrexone 112 MG/ML Injectable Suspension [Vivitrol] Vivitrol 380 MG Vivitrol 380 MG 04/08/2020 12:00:00 AM EST 4.0 {ml} active Vivitrol 380 MG eCW1 ([facility]) Naltrexone 112 MG/ML Injectable Suspension [Vivitrol] Vivitrol 380 MG Vivitrol 380 MG 04/08/2020 12:00:00 AM EST 4.0 {ml} active Vivitrol 380 MG eCW1 ([facility]) quetiapine 25 MG Oral Tablet [Seroquel] SEROquel 25 MG SEROq uel 25 MG 04/08/2020 12:00:00 AM EST 1.0 {tablet_at_bedtime} active SEROquel 25 MG eCW1 ([facility]) Insurance Providers Payer name Policy type / Coverage type Policy ID Covered constitution party ID Covered constitution party's relationship to cardoso Policy Card[employer] Plan Information [facility] [id number] Unemploye d [id number] [facility] [id number] S [id number] [facility] [id number] Unemploye d [id number] SELF PAY SP [employer] COMMUNITY PLAN MCDHMO [id number] SP [id number] [facility](MCAID) O [id number] S [id number] [facility] [place] [id number] S [id number] [facility] MEDICAID [id number] S [id number] SELF PAY ONLY [id number] SP [id number] MEDICAID [id number] [employer] COMMUN[employer] PLAN MCDHMO NO CARDS SP NO CARDS [facility] PL [id number] Unemploye d [id number] SELF PAY Unemployed [facility] [id number] SP [id number] [facility] PL [id number] S [id number] [facility] PL [id number] S [id number] SELF PAY ONLY [id number] SP [id number] MEDICAID [id number] SP [id number] [facility] [id number] [facility] [id number] [facility]-Medicaid [id number] [facility] [id number] ANSI-Medicaid [id number] ANSI-Medicaid [id number] [facility] COMMUNITY PLAN [facility] [id number] SP [id number] [facility] PLAN [facility] [id number] SP [id number] [facility] [id number] SP [id number] ANSI-Medicaid [id number] ANSI-Medicaid [id number] MEDICAID [id number] SP [id number] MEDICAID [id number] SP [id number] [facility] O [id number] S [id number] [facility] [id number] SP [id number] [employer] [id number] SP [id number] [employer] O [id number] S [id number] [employer] [id number] SP [id number] MEDICAID - CLINIC [id number] [facility] PLAN [facility] [id number] SP [id number] [facility] [id number] SP [id number] [facility] COMMUNITY PLAN [id number] SP [id number] Problems, Conditions, and Diagnoses Code Display Name Description Problem Type Effective Dates Data Source(s) Y90.0 Blood alcohol level of less than 20 mg/1 00 ml BLOOD ALCOHOL LEVEL OF LESS THAN 20 MG/100 ML Diagnosis 03/26/2020 04:22:00 AM EST Allyn pyle Z91.81 History of falling HISTORY OF FALLING Diagnosis 08/2020 04:22:00 AM [facility] M25.531 Pain in right wrist PAIN IN RIGHT WRIST Diagnosis 0 03/26/2020 04:22:00 AM [facility] Z53.29 Procedure and treatment not carried out because of patient's decision for other reasons PROC/TRTMT NOT CRD OUT BEC PT DECISION FOR OTH REASONS Diagn osis 03/26/2020 04:22:00 AM [facility] F34.1 Dysthymic disorder DYSTHYMIC DISORDER Diagnosis 08/2020 04:22:00 AM [facility] F17.210 Nicotine dependence, cigarettes, uncompl icated NICOTINE DEPENDENCE, CIGARETTES, UNCOMPLICATED Diagnosis 03/26/2020 04:22:00 AM [facility] F10.230 Alcohol dependence with withdrawal, unco mplicated ALCOHOL DEPENDENCE WITH WITHDRAWAL, UNCOMPLICATED Diagnosis 03/26/2020 04:22:00 AM [facility] F10.11 ALCOHOL ABUSE, IN REMISSION ALCOHOL ABUSE, IN REMISSIO N Diagnosis 12/24/2019 02:00:00 PM [facility] F41.9 Anxiety disorder, unspecified ANXIETY DISORDER, UNSPEC IFIED Diagnosis 12/24/2019 02:00:00 PM [facility] F10.21 Alcohol dependence, in remission ALCOHOL DEPENDE NCE, IN REMISSION Diagnosis 12/24/2019 02:00:00 PM [facility] F10.10 [id number] Alcohol use disorder, mild, abuse Problem [facility] F33.2 [id number] Severe episode of re current major depressive disorder, without psychotic features Problem 04/21/2020 12:00:00 AM EST [facility] F41.8 [id number] Depression with anxiety Problem 04/21/2020 1 2:00:00 AM EST [facility] ([facility]) F51.04 [id number] Psychophysiological insomnia Problem 04/08/2020 12:00:00 AM EST [facility] ([facility]) F17.200 [id number] Nicotine dependence with current use Prob darling 04/08/2020 12:00:00 AM EST [facility] ([facility]) Surgeries/Procedures Procedure Description Date Indications Data Source(s) Injection, medroxyprogesterone acetate for contraceptive use , 150 mg 10/24/2020 12:00:00 AM EDT eCW1 ([facility]) OFFICE OUTPATIENT NEW 45 MINUTES 10/01/2020 12:00:00 A M EDT [facility] ([facility] ) CLTX PHLNGL FX PROX/MIDDLE PX/F/T W/O MANJ EA 10/02/19 12:00:00 AM EDT [facility] ([facility] ) Detoxification Services for Substance Abuse Treatment DETOXIFICATION SERVICES FOR SUBSTANCE ABUSE TREATMENT 09/12/2020 12:00:00 AM EDT [facility]. Naltrexone 380mg (Pt Supplied) 07/15/2020 12:00:00 AM EDT eCW1 ([facility]) Injection, medroxyprogesterone acetate for contraceptive use , 150 mg 07/15/2020 12:00:00 AM EDT eCW1 ([facility]) Naltrexone 380mg (Pt Supplied) 05/30/2020 12:00:00 AM EST eCW1 ([facility]) URINE TEST 04/21/2020 12:00:00 AM EST eCW1 ([facility]) Naltrexone 380mg 04/21/2020 12:00:00 AM EST eCW1 ([facility]) Injection, medroxyprogesterone acetate for contraceptive use , 150 mg 04/21/2020 12:00:00 AM EST eCW1 ([facility]) ECG ROUTINE ECG W/LEAST 12 LDS W/I&R 04/21/2020 12:00: 00 AM EST eCW1 ([facility]) Individual Counseling for Substance Abuse Treatment, C ontinuing Care INDIV TIP MENDER FOR SUBSTANCE ABUSE TREATMENT, CONTINUING CARE 03/29/2020 12:00:00 AM [facility] Detoxification Services for Substance Abuse Treatment DETOXIFICATION SERVICES FOR SUBSTANCE ABUSE TREATMENT 03/27/2020 12:00:00 AM [facility] Results ID Date Data Source [id number] 12/29/2020 10:14:00 PM EDT [facility] Name Value Range Interpretation Code Description Data Nataly rce(s) Supporting Document(s) SARS coronavirus 2 RNA [Presence] in Res piratory specimen by SELMA with probe detection NEGATIVE [facility] This lab was ordered by [facility] a nd reported by [facility]. ID Date Data Source [id number] 12/10/2020 06:31:00 PM EDT [facility] Name Value Range Interpretation Code Description Data Nataly rce(s) Supporting Document(s) SARS-CoV-2 (COVID 19) NEGATIVE - SARS-CoV-2 (COVID19) [facility] This lab was ordered by [facility] a nd reported by [facility]. ID Date Data Source [id number] 09/13/2020 03:48:00 PM EDT [employer] Counselor Progress NotePatient NotePatie nt chose to leave Inpatient Detox Treatment at [facility] medical advice today. Patient was provided with contactinformation for aftercare treatment options, list of current local self-help meetings, community resources sheet, as well as contact informationfor the [facility] Emotional SupportLine available 11/10. Staff spoke with patient regarding the benefits ofcompleting treatment and risks of leaving prior to recommended discharge.Patient confirmed understanding, noted having no questions or concernsand reported feeling safe at time of discharge, denying suicidal andhomicidal ideation. Nursing Subassembler and Hospitalist were notified ofAMA. At the [...] rce(s) Supporting Document(s) ID Date Data Source [id number] 09/13/2020 03:13:00 PM EDT [facility] [employer] Counselor Progress NotePatient NoteCOUNS SHELBY MEDEROS, MS, CASAC-T, COMPLETED THE SAFE-T ASSESSMENTWITH THE PATIENT (SEE IN CHART).Dictated on 09/13/201512 by Shelby CurtisTranscribed on 09/13/201512 by Shelby CurtisSign by Shelby Curtis on 09/13/201513Sign by: Shelby Curtis Name Value Range Interpretation Code Description Data Nataly rce(s) Supporting Document(s) ID Date Data Source [id number] 09/12/2020 02:00:00 PM EDT [facility] Name Value Range Interpretation Code Description Data Nataly rce(s) Supporting Document(s) SARS-CoV-2 (COVID-19) RNA [Presence] in Respiratory specimen by SELMA with probe detection Negative; No COVID-2 RNA detected by PCR. [facility] This lab was ordered by [facility] and reported by . ID Date Data Source [id number] 03/27/2020 01:04:00 PM [facility] spital Procedure Performed By: [facility] [address] [place] [address] Director: Latanya Zamarripa MD Mixed huang: Mixed huang, probable contamination. Name Value Range Interpretation Code Description Data Nataly rce(s) Supporting Document(s) ID Date Data Source [id number] 04/29/2020 01:30:00 PM [facility] Name Value Range Interpretation Code Description Data Nataly rce(s) Supporting Document(s) Vitamin B12 result 541 Normal (applies to non-numer ic results) [facility] SEE SCANNED REPORT ID Date Data Source [id number] 04/01/2020 10:39:00 PM [facility] Name Value Range Interpretation Code Description Data Nataly rce(s) Supporting Document(s) Vitamin D 1,25 result 60 pg/mL 18-78 Normal (applies to non-nu meric results) [facility] ADDITIONAL INFORMATIO N This test was developed and its performance characteristics determined by [facility] in a manner consistent with CLIA requirements. This test has not been cleared or approved by the U.S. Food and Drug Administration. Test Performed by: [facility] [address] [place] [id number] Security Compliance Engineer: Yves Enciso M.D. Ph.D.; CLIA# [id number] ID Date Data Source [id number] 03/26/2020 07:08:00 PM [facility] Name Value Range Interpretation Code Description Data Nataly rce(s) Supporting Document(s) Iron Level FE result 226 ug/dL 37-170 [facility] Test Performed By: [facility] [address] [place] [address] Director: Malaika Zamarirpa MD ID Date Data Source [id number] 03/26/2020 07:08:00 PM [facility] Name Value Range Interpretation Code Description Data Nataly rce(s) Supporting Document(s) Ferritin result 138 ng/mL 6.2-137.0 [facility] Test Performed By: [facility] [address] [place] [address] Director: Malaika Zamarripa MD ID Date Data Source [id number] 03/26/2020 06:38:00 PM EST [facility] Name Value Range Interpretation Code Description Data Nataly rce(s) Supporting Document(s) Ferritin 138 ng/mL 6.2-137.0 Above high normal [facility] Test Performed By: [facility] [address] [place] [address] Director: Malaika Zamarripa MD ID Date Data Source [id number] 03/26/2020 06:38:00 PM EST [facility] Name Value Range Interpretation Code Description Data Nataly rce(s) Supporting Document(s) Iron FE Level 226 ug/dL 37-170 Above high normal [facility] Test Performed By: [facility] [address] [place] [address] Director: Malaika Zamarripa MD ID Date Data Source [id number] 03/26/2020 06:38:00 PM EST [facility] Name Value Range Interpretation Code Description Data Nataly rce(s) Supporting Document(s) Vitamin B12 541 pg/mL 193-986 Normal (applies to non-numeric resu lts) [facility] Test Performed By: [facility] [address] [place] [address] Director: Malaika Zamarripa MD ID Date Data Source [id number] 03/26/2020 05:53:00 AM [facility] Name Value Range Interpretation Code Description Data Nataly rce(s) Supporting Document(s) Bilirubin,Direct 0.05-0.20 Above high normal [facility] ID Date Data Source [id number] 03/26/2020 05:54:00 AM [facility] Value Range Interpretation Code Description Data Nataly rce(s) Supporting Document(s) Thyroid Stimulate Hormone TSH 0.358-3.74 Above high normal [facility] ID Date Data Source [id number] 03/26/2020 05:53:00 AM [facility] Name Value Range Interpretation Code Description Data Nataly rce(s) Supporting Document(s) Phosphorus 2.5-4.9 Normal (applies to non-numeric resul ts) [facility] ID Date Data Source [id number] 03/26/2020 05:53:00 AM [facility] Name Value Range Interpretation Code Description Data Nataly rce(s) Supporting Document(s) Sodium 135 mmol/L 136-145 Below low normal [facility] Potassium 3.5-5.1 Normal (applies to non-numeric resul ts) [facility] Chloride 95 mmol/L 98-107 Below low normal [facility] Carbon Dioxide CO2 21-32 Normal (applies to non-numer ic results) [facility] Anion Gap 5.0-16.0 Normal (applies to non-numeric resul ts) [facility] BUN 5 mg/dL 7-18 Below low normal [facility] Creatinine,Serum 0.7-1.2 Normal (applies to non-numeric results) [facility] GFR >60 Normal (applies to non-numeric results) [facility] Glucose Level 90 mg/dL 60-99 Normal (applies to non-numeric re sults) [facility] Reference range is only applicable when patient is fasting Note the following drug interference: Sulfasalazine Sulfapyridine Can see falsely depressed Can see falsely elevated result with up to 17% results with up to 11% decrease in measurement increase in measurement Recommend patients be collected for this test prior to administration of either drug. Calcium 8.5-10.1 Normal (applies to non-numeric resul ts) [facility] Bilirubin,Total 0.1-1.9 Normal (applies to non-numeric results) [facility] SGOT(AST) 64 U/L 15-37 Above high normal [facility] Note the following drug interference: Sulfasalazine Sulfapyridine Can see falsely depressed Can see falsely elevated result with up to 10% results with up to 10% decrease in measurement increase in measurement Recommend patients be collected for this test prior to administration of either drug. SGPT(ALT) 105 U/L 12-78 Above high normal [facility] Note the following drug interference: Sulfasalazine Sulfapyridine Can see falsely depressed Can see falsely elevated result with up to 29% results with up to 10% decrease in measurement increase in measurement Recommend patients be collected for this test prior to administration of either drug. Alkaline Phosphatase 106 U/L 38-126 Normal (applies to non-num sue results) [facility] can increase Alkaline Phosp le vels up to 2 times the normal adult value. Normal values for children and adolescents are 2 to 3 times the normal adult value. Total Protein 6.0-8.2 Normal (applies to non-numeric re sults) [facility] Albumin Level 3.4-5.0 Normal (applies to non-numeric re sults) [facility] ID Date Data Source [id number] 03/26/2020 05:53:00 AM EST [facility] Name Value Range Interpretation Code Description Data Nataly rce(s) Supporting Document(s) Magnesium 1.8-2.4 Normal (applies to non-numeric resul ts) [facility] ID Date Data Source [id number] 03/26/2020 02:50:00 PM EST [facility] Name Value Range Interpretation Code Description Data Nataly rce(s) Supporting Document(s) CPK result 237 U/L 26-192 [facility] Test Performed By: [facility] [address] [place] [address] Director: Malaika Zamarripa MD ID Date Data Source [id number] 03/26/2020 02:50:00 PM [facility] Value Range Interpretation Code Description Data Nataly rce(s) Supporting Document(s) Syphilis Serology result Nonreactive Normal (applies to non-numeric results) [facility] Test Performed By: [facility] [address] [place] [address] Director: Malaika Zamarripa MD ID Date Data Source [id number] 03/26/2020 01:59:00 PM EST [facility] Value Range Interpretation Code Description Data Nataly rce(s) Supporting Document(s) Syphilis Serology Nonreactive Normal (applies to non-numer ic results) [facility] Test Performed By: [facility] [address] [place] [address] Director: Malaika Zamarripa MD ID Date Data Source [id number] 03/26/2020 01:56:00 PM [facility] Value Range Interpretation Code Description Data Nataly rce(s) Supporting Document(s) CPK 237 U/L 26-192 Above high normal [facility] Test Performed By: [facility] [address] [place] [address] Director: Malaika Zamarripa MD ID Date Data Source [id number] 03/26/2020 11:41:00 AM [facility] Value Range Interpretation Code Description Data Nataly rce(s) Supporting Document(s) Reticulocyte Count 0.50-1.81 Normal (applies to non-numer ic results) [facility] ID Date Data Source [id number] 03/26/2020 05:28:00 AM EST [facility] Name Value Range Interpretation Code Description Data Nataly rce(s) Supporting Document(s) Ethanol Less than 10.0 Normal (applies to non-numeric r esults) [facility] ID Date Data Source [id number] 03/26/2020 05:02:00 AM EST [facility] Name Value Range Interpretation Code Description Data Nataly rce(s) Supporting Document(s) White Blood Count 3.5-10.5 Normal (applies to non-numeri c results) [facility] Red Blood Count 3.90-5.00 Below low normal [facility] Hemoglobin 12.0-15.5 Below low normal [facility] Hematocrit 34.9-44.5 Below low normal [facility] Mean Corpuscular Volume 81.2-95.1 Normal (applies to non- numeric results) [facility] Mean Corpuscular Hgb 25.6-32.2 Normal (applies to non-num sue results) [facility] Mean Corpuscular Hgb Conc 32.0-36.0 Normal (applies to no n-numeric results) [facility] Red Cell Distribution Width 11.9-15.5 Above high normal [facility] Platelet Count 149 x10 3/uL 150-450 Below low normal [facility] Mean Platelet Volume 9.4-12.[address] [facility] Neutrophils% (Auto) 31.0-71.0 Normal (applies to non-nume gucci results) [facility] Lymphocytes% (Auto) 20.0-55.0 Normal (applies to non-nume gucci results) [facility] Monocytes% (Auto) 4.0-12.0 Normal (applies to non-numeri c results) [facility] Eosinophils% (Auto) 1.0-8.0 Normal (applies to non-nume gucci results) [facility] Basophils% (Auto) 0.0-2.0 Normal (applies to non-numeri c results) [facility] Immature Granulocytes% (Auto) 0.0-2.0 Normal (racquel lies to non-numeric results) [facility] Neutrophils# (Auto) 1.50-6.20 Normal (applies to non-nume gucci results) [facility] Lymphocytes# (Auto) 1.20-4.00 Below low normal [facility] Monocytes# (Auto) 0.00-0.90 Normal (applies to non-numeri c results) [facility] Eosinophils# (Auto) 0.00-0.50 Normal (applies to non-nume gucci results) [facility] Basophils# (Auto) 0.00-0.20 Normal (applies to non-numeri c results) [facility] Immature Granulocytes# (Auto) 0.00-7.00 No rmal (applies to non-numeric results) [facility] ID Date Data Source [id number] 04/02/2020 12:13:00 AM [facility] Name Value Range Interpretation Code Description Data Nataly rce(s) Supporting Document(s) Vitamin D 1,25 result 60 pg/mL 18-78 Normal (applies to non-nu meric results) [facility] ADDITIONAL INFORMATIO N This test was developed and its performance characteristics determined by [facility] in a manner consistent with CLIA requirements. This test has not been cleared or approved by the U.S. Food and Drug Administration. Test Performed by: [facility] [place] [address] Security Compliance Engineer: Yves Enciso M.D. Ph.D.; CLIA# [id number] ID Date Data Source [id number] 03/28/2020 05:44:00 PM [facility] Name Value Range Interpretation Code Description Data Nataly rce(s) Supporting Document(s) Chlamydia,Urine Negative Normal (applies to non-numeric results) [facility] Test Performed By: [facility] [address] [place] [address] Director: Malaika Zamarripa MD . GC Urine Negative Normal (applies to non-numeric resul ts) [facility] Test Performed By: [facility] [address] [place] [address] Director: Malaika Zamarripa MD . Methodology: Second generation nucleic acid amplification. ID Date Data Source [id number] 03/27/2020 11:31:00 AM [facility] Procedure Performed By: [facility] [address] [place] [address] Director: Latanya Zamarripa MD Name Value Range Interpretation Code Description Data Nataly rce(s) Supporting Document(s) Urine Culture Normal (applies to non-numeric re sults) [facility] ID Date Data Source [id number] 03/26/2020 06:59:00 AM [facility] Collected By: Nurse's Aide Initials: HR Collected By: Nurse's Aide Initials: HR Name Value Range Interpretation Code Description Data Nataly rce(s) Supporting Document(s) RBC,Urine None Seen [facility] WBC,Urine None Seen [facility] Casts,Urine None Seen Normal (applies to non-numeric resu lts) [facility] Epithelial Cells,Urine None - [facility] Squamous Cells,Urine None Seen [facility] Bacteria,Urine None Seen [facility] ital Mucus,Urine None Seen [facility] ID Date Data Source [id number] 03/26/2020 06:59:00 AM [facility] Collected By: Nurse's Aide Initials: HR Collected By: Nurse's Aide Initials: HR Name Value Range Interpretation Code Description Data Nataly rce(s) Supporting Document(s) Color,Urine Colorl-Dk Y Normal (applies to non-numeric res ults) [facility] Clarity,Urine Clear Normal (applies to non-numeric re sults) [facility] Specific [place],Urine 1.005-1.030 Normal (applies to non- numeric results) [facility] pH,Urine 5.0-8.0 Normal (applies to non-numeric resul ts) [facility] Protein,Urine Negative [facility] Glucose,Urine Negative Normal (applies to non-numeric re sults) [facility] Ketones,Urine Negative Normal (applies to non-numeric re sults) [facility] Blood,Urine Negative Normal (applies to non-numeric resu lts) [facility] Bilirubin,Urine Negative Normal (applies to non-numeric results) [facility] Urobilinogen,Urine 0.2-1.0 Normal (applies to non-numer ic results) [facility] Leukocyte Esterase,Urine Negative [facility] Nitrite,Urine Negative Normal (applies to non-numeric re sults) [facility] ID Date Data Source [id number] 03/26/2020 06:30:00 AM [facility] Name Value Range Interpretation Code Description Data Nataly rce(s) Supporting Document(s) UDS Benzodiazepines Screen Negative [facility] UDS Cocaine Screen Negative Normal (applies to non-numer ic results) [facility] UDS Ampetamine Screen Negative Normal (applies to non-nu meric results) [facility] UDS Cannabinoids Screen Negative Normal (applies to non- numeric results) [facility] UDS Opiates Screen Negative Normal (applies to non-numer ic results) [facility] UDS Barbiturates Screen Negative Normal (applies to non- numeric results) [facility] Threshold Levels Benzodiazepine 200 ng/mL Cocaine 300 ng/mL Amphetamines 1000 ng/mL Cannabinoids (THC) 50 ng/mL Opiates 300 ng/mL Barbiturates 200 ng/mL All positive findings are presumptive and unconfirmed. Confirmation of positive results are performed only at request of provider. Unconfirmed results must not be used for non-medical purposes (i.e. preemployment and legal purposes) ID Date Data Source [id number] 03/28/2020 06:20:00 PM [facility] Name Value Range Interpretation Code Description Data Nataly rce(s) Supporting Document(s) Chlamydia,Urine result Negative Normal (applies to non-n umeric results) [facility] Test Performed By: [facility] [address] [place] [address] Director: Malaika Zamarripa MD . GC Urine result Negative Normal (applies to non-numeric results) [facility] Test Performed By: [facility] [address] [place] [address] Director: Malaika Zamarripa MD . Methodology: Second generation nucleic acid amplification. ID Date Data Source [id number] 03/26/2020 01:10:00 AM EST [facility] Name Value Range Interpretation Code Description Data Nataly rce(s) Supporting Document(s) SARS coronavirus 2 RNA [Presence] in Res piratory specimen by SELMA with probe detection NEGATIVE [facility] This lab was ordered by [facility] a nd reported by [facility]. ID Date Data Source [id number] 03/05/2020 03:31:00 PM EST [facility] Name Value Range Interpretation Code Description Data Nataly rce(s) Supporting Document(s) SARS coronavirus 2 RNA [Presence] in Res piratory specimen by [facility]ELMA with probe detection [facility] This lab was ordered by [facility] a nd reported by [facility]. ID Date Data Source [id number] 02/28/2020 07:24:00 AM EST [facility] Name Value Range Interpretation Code Description Data Nataly rce(s) Supporting Document(s) SARS coronavirus 2 RNA [Presence] in Res piratory specimen by [facility]ELMA with probe detection [facility] This lab was ordered by [facility] a nd reported by [facility]. Procedure Social History Code Duration Value Status Description Data Source(s ) Smoking 09/30/2020 12:00:00 AM EDT Current Smoker completed Curre nt Smoker eCW1 ([facility]) Smoking 09/30/2020 12:00:00 AM EDT Current Smoker completed Curre nt Smoker eCW1 ([facility]) Smoking 09/30/2020 12:00:00 AM EDT Current Smoker completed Curre nt Smoker eCW1 ([facility]) Smoking 09/30/2020 12:00:00 AM EDT Current Smoker completed Curre nt Smoker eCW1 ([facility]) Smoking 09/30/2020 12:00:00 AM EDT Current Smoker completed Curre nt Smoker eCW1 ([facility]) Smoking 07/03/2020 12:00:00 AM EDT Current Smoker completed Curre nt Smoker eCW1 ([facility]) Smoking 07/03/2020 12:00:00 AM EDT Current Smoker completed Curre nt Smoker eCW1 ([facility]) Smoking 07/03/2020 12:00:00 AM EDT Current Smoker completed Curre nt Smoker eCW1 ([facility]) Smoking 07/03/2020 12:00:00 AM EDT Current Smoker completed Curre nt Smoker eCW1 ([facility]) Smoking 05/30/2020 12:00:00 AM EST Current Smoker completed Curre nt Smoker eCW1 ([facility]) Smoking 04/21/2020 12:00:00 AM EST Current Smoker completed Curre nt Smoker eCW1 ([facility]) Smoking 04/08/2020 12:00:00 AM EST Current Smoker completed Curre nt Smoker eCW1 ([facility]) Smoking 04/08/2020 12:00:00 AM EST Current Smoker completed Curre nt Smoker eCW1 ([facility]) Smoking 04/08/2020 12:00:00 AM EST Current Smoker completed Curre nt Smoker eCW1 ([facility]) Vital Signs ID Date Data Source UNK Name Value Range Interpretation Code Description Data Source(s) Body height 65.50 [in_i] 65.50 [in_i] MEDENT ([facility]) 5'5.50" Body temperature 97.5 [degF] 97.5 [degF] MEDENT ([facility] ) Body weight 142.12 [lb_av] 142.12 [lb_av] MEDEN T ([facility] ) Body mass index (BMI) [Ratio] 23.3 kg/m2 23.3 k g/m2 MEDENT ([facility] ) Body weight 143 [lb_av] 143 [lb_av] eCW1 ([facility]) Body height 66 [in_i] 66 [in_i] eCW1 ([facility]) Body mass index (BMI) [Ratio] 23.08 kg/m2 23.08 kg/m2 eCW1 ([facility]) Heart rate 105 /min 105 /min eCW1 ([facility]) Respiratory rate 18 /min 18 /min eCW1 ([facility]) Body temperature 97.2 [degF] 97.2 [degF] eCW1 ( [facility]) Systolic blood pressure 110 mm[Hg] 110 mm[Hg] e CW1 ([facility]) Diastolic blood pressure 70 mm[Hg] 70 mm[Hg] eCW1 ([facility]) Body weight 158 [lb_av] 158 [lb_av] eCW1 ([facility]) Body height 66 [in_i] 66 [in_i] eCW1 ([facility]) Body mass index (BMI) [Ratio] 25.50 kg/m2 25.50 kg/m2 eCW1 ([facility]) Heart rate /min eCW1 ([facility]) Respiratory rate 18 /min 18 /min eCW1 ([facility]) Body temperature 98.7 [degF] 98.7 [degF] eCW1 ( [facility]) Systolic blood pressure 126 mm[Hg] 126 mm[Hg] e CW1 ([facility]) Diastolic blood pressure 78 mm[Hg] 78 mm[Hg] eCW1 ([facility]) Body weight 154 [lb_av] 154 [lb_av] eCW1 ([facility]) Body height 66 [in_i] 66 [in_i] eCW1 ([facility]) Respiratory rate 18 /min 18 /min eCW1 ([facility] hospital) Body mass index (BMI) [Ratio] 24.85 kg/m2 24.85 kg/m2 eCW1 ([facility]) Body temperature 98.4 [degF] 98.4 [degF] eCW1 ( [facility]) Heart rate 107 /min 107 /min eCW1 ([facility]) Systolic blood pressure 96 mm[Hg] 96 mm[Hg] e CW1 ([facility]) Diastolic blood pressure 66 mm[Hg] 66 mm[Hg] eCW1 ([facility]) Body weight 153 [lb_av] 153 [lb_av] eCW1 ([facility]) Body height 66 [in_i] 66 [in_i] eCW1 ([facility]) Body mass index (BMI) [Ratio] 24.69 kg/m2 24.69 kg/m2 eCW1 ([facility]) Heart rate 104 /min 104 /min eCW1 ([facility]) Respiratory rate 18 /min 18 /min eCW1 ([facility] hospital) Body temperature 97.0 [degF] 97.0 [degF] eCW1 ( [facility]) Systolic blood pressure 104 mm[Hg] 104 mm[Hg] e CW1 ([facility]) Diastolic blood pressure 62 mm[Hg] 62 mm[Hg] eCW1 ([facility]) ID Date Data Source [id number] 04/01/2020 10:39:00 PM EST [facility] Name Value Range Interpretation Code Description Data Source(s) Weight (Calculated Kilograms) 63.50 63.50 [facility] Height (Calculated Centimeters) 167.64 167. 64 [facility] Body Mass Index (BMI) 22.6 22.6 [facility] ID Date Data Source [id number] 04/29/2020 01:30:00 PM EST [facility] Name Value Range Interpretation Code Description Data Source(s) Weight Measurement Method 8 8 [facility] Weight (Calculated Kilograms) 63.50 63.50 [facility] Weight 2240 2240 [facility] pital Temperature Source 7 7 [facility] Temperature 97.9 97.9 [facility] spital Respiratory Effort 1 1 [facility] Respiratory Rate 20 20 [facility] Pulse Assessment Method 4 4 G [facility] Pulse Rate 112 112 [facility] Height (Calculated Centimeters) 167.64 167. 64 [facility] Height 66 66 [facility] pital Blood Pressure 110/80 110/80 [facility] Body Mass Index (BMI) 22.6 22.6 [facility] Weight Measurement Method 8 8 [facility] Weight (Calculated Kilograms) 63.50 63.50 [facility] Weight 2240 2240 [facility] pital Temperature Source 7 7 [facility] Temperature 97.9 97.9 [facility] Respiratory Effort 1 1 [facility] Respiratory Rate 20 20 [facility] Pulse Assessment Method 4 4 G [facility] Pulse Rate 112 112 [facility] pital Height (Calculated Centimeters) 167.64 167. 64 [facility] Height 66 66 [facility] pital Blood Pressure 110/80 110/80 [facility] Body Mass Index (BMI) 22.6 22.6 [facility] Weight Measurement Method 8 8 [facility] Weight (Calculated Kilograms) 63.50 63.50 [facility] Weight 2240 2240 [facility] pital Temperature Source 7 7 [facility] 97.9 97.9 [facility] Res[facility] Effort 1 1 [facility] Respiratory Rate 20 20 [facility] Pulse Assessment Method 4 4 G [facility] Pulse Rate 112 112 [facility] pital Height (Calculated Centimeters) 167.64 167. 64 [facility] 66 66 [facility] 110/80 110/80 [facility] Body Mass Index (BMI) 22.6 22.6 [facility] Weight Measurement Method 8 8 [facility] Weight (Calculated Kilograms) 63.50 63.50 [facility] Weight 2240 2240 [facility] pital Temperature Source 7 7 [facility] Temperature 97.2 97.2 [facility] Respiratory Effort 1 1 [facility] Respiratory Rate 14 14 [facility] Pulse Assessment Method 4 4 G [facility] Pulse Rate 85 85 [facility] Height (Calculated Centimeters) 167.64 167. 64 [facility] [facility] Height 66 66 [facility] Blood Pressure 107/75 107/75 [facility] Body Mass Index (BMI) 22.6 22.6 [facility] Weight (Calculated Kilograms) 63.50 63.50 [facility] Height (Calculated Centimeters) 167.64 167. 64 [facility] Body Mass Index (BMI) 22.6 22.6 [facility] ID Date Data Source [id number] 12/20/2019 12:06:00 AM EDT [facility] Name Value Range Interpretation Code Description Data Source(s) Weight (Calculated Kilograms) 63.50 63.50 [facility] Height (Calculated Centimeters) 167.64 167. 64 [facility] Body Mass Index (BMI) 22.6 22.6 [facility] Weight (Calculated Kilograms) 63.50 63.50 [facility] Height (Calculated Centimeters) 167.64 167. 64 [facility] Body Mass Index (BMI) 22.6 22.6 [facility] ID Date Data Source [id number] 12/20/2019 10:54:00 AM EDT [facility] Name Value Range Interpretation Code Description Data Source(s) Weight Measurement Method 1 1 [facility] Weight (Calculated Kilograms) 63.50 63.50 [facility] Weight 2400 2400 [facility] Temperature Source 7 7 [facility] Temperature 98.4 98.4 [facility] Respiratory Effort 1 1 [facility] Respiratory Rate 16 16 [facility] Pulse Assessment Method 4 4 [facility] Pulse Rate 55 55 [facility] Height (Calculated Centimeters) 167.64 167. 64 [facility] Height 66 66 [facility] Blood Pressure 98/64 98/64 [facility] Body Mass Index (BMI) 22.6 22.6 [facility] Weight Measurement Method 1 1 [facility] Weight (Calculated Kilograms) 63.50 63.50 [facility] Weight 2400 2400 [facility] Temperature Source 7 7 [facility] Temperature 98.4 98.4 [facility] Respiratory Effort 1 1 [facility] Respiratory Rate 16 16 [facility] Pulse Assessment Method 4 4 [facility] Pulse Rate 55 55 [facility] Height (Calculated Centimeters) 167.64 167. 64 [facility] Height 66 66 [facility] Blood Pressure 98/64 98/64 [facility] Body Mass Index (BMI) 22.6 22.6 [facility] Weight Measurement Method 1 1 [facility] Weight (Calculated Kilograms) 63.50 63.50 [facility] Weight 2400 2400 [facility] Temperature Source 7 7 [facility] Temperature 98.4 98.4 [facility] Respiratory Effort 1 1 [facility] Respiratory Rate 16 16 [facility] Pulse Assessment Method 4 4 [facility] Pulse Rate 55 55 [facility] Height (Calculated Centimeters) 167.64 167. 64 [facility] Height 66 66 [facility] Blood Pressure 98/64 98/64 [facility] Body Mass Index (BMI) 22.6 22.6 [facility] Weight Measurement Method 1 1 [facility] Weight (Calculated Kilograms) 63.50 63.50 [facility] Weight 2240 2240 [facility] Temperature Source 7 7 [facility] Temperature 97.6 97.6 [facility] Respiratory Effort 1 1 [facility] Respiratory Rate 16 16 [facility] Pulse Assessment Method 4 4 [facility] Pulse Rate 74 74 [facility] Height (Calculated Centimeters) 167.64 167. 64 [facility] Height 66 66 [facility] Blood Pressure 126/82 126/82 [facility] Body Mass Index (BMI) 22.6 22.6 [facility] Weight Measurement Method 1 1 [facility] Weight (Calculated Kilograms) 63.50 63.50 [facility] Weight 2240 2240 [facility] Temperature Source 7 7 [facility] Temperature 97.6 97.6 [facility] Respiratory Effort 1 1 [facility] Respiratory Rate 18 18 [facility] Pulse Assessment Method 4 4 [facility] Pulse Rate 74 74 [facility] Height (Calculated Centimeters) 167.64 167. 64 [facility] Height 66 66 [facility] Blood Pressure 126/82 126/82 [facility] Body Mass Index (BMI) 22.6 22.6 [facility] Weight (Calculated Kilograms) 63.50 63.50 [facility] Height (Calculated Centimeters) 167.64 167. 64 [facility] Body Mass Index (BMI) 22.6 22.6 [facility] ID Date Data Source [id number] 12/25/2019 08:28:00 AM EDT [facility] spital Name Value Range Interpretation Code Description Data Source(s) Weight Measurement Method 8 8 [facility] Weight (Calculated Kilograms) 63.50 63.50 [facility] Weight 2240 2240 [facility] pital Temperature Source 7 7 [facility] Temperature 98.8 98.8 [facility] spital Respiratory Effort 1 1 [facility] Respiratory Rate 18 18 [facility] Pulse Assessment Method 4 4 G [facility] Pulse Rate 86 86 [facility] Height (Calculated Centimeters) 167.64 167. 64 [facility] Height 66 66 [facility] Blood Pressure 121/86 121/86 [facility] Body Mass Index (BMI) 22.6 22.6 [facility] Weight Measurement Method 8 8 [facility] Weight (Calculated Kilograms) 63.50 63.50 [facility] Weight 2240 2240 [facility] pital Temperature Source 1 1 [facility] Temperature 98.7 98.7 [facility] spital Respiratory Effort 1 1 [facility] Respiratory Rate 20 20 [facility] Pulse Assessment Method 4 4 G [facility] Pulse Rate 114 114 [facility] pital Height (Calculated Centimeters) 167.64 167. 64 [facility] Height 66 66 [facility] Blood Pressure 131/96 131/96 [facility] Body Mass Index (BMI) 22.6 22.6 [facility] Weight Measurement Method 8 8 [facility] Weight (Calculated Kilograms) 63.50 63.50 [facility] Weight 2240 2240 [facility] pital Temperature Source 1 1 [facility] Temperature 98.7 98.7 [facility] spital Respiratory Effort 1 1 [facility] Respiratory Rate 20 20 [facility] Pulse Assessment Method 4 4 G [facility] Pulse Rate 114 114 [facility] pital Height (Calculated Centimeters) 167.64 167. 64 [facility] Height 66 66 [facility] Blood Pressure 131/96 131/96 [facility] Body Mass Index (BMI) 22.6 22.6 [facility] Weight (Calculated Kilograms) 63.[address] [place] [address] Height (Calculated Centimeters) 167.64 167. 64 [facility] Body Mass Index (BMI) 22.6 22.6 [facility] Weight (Calculated Kilograms) 63. [address] [place] [address] Height (Calculated Centimeters) 167.64 167. 64 [facility] Body Mass Index (BMI) 22.6 226 [facility] Patient Treatment Plan of Care Planned Activity Planned Date Details Description Data Source (s) Acamprosate calcium 333 MG Delayed Release Oral Tablet 09/23/2020 12:00:00 AM EDT [facility] ([facility]) Acamprosate calcium 333 MG Delayed Release Oral Tablet 09/13/2020 12:00:00 AM [facility] Acamprosate calcium 333 MG Delayed Release Oral Tablet 09/13/2020 12:00:00 AM [facility] quetiapine 25 MG Oral Tablet [Seroquel] 04/08/2020 12:00:00 AM EST eCW1 ([facility]) Naltrexone 112 MG/ML Injectable Suspension [Vivitrol] 04/08/2020 12:00:00 AM EST eCW1 ([facility]) Naltrexone 112 MG/ML Injectable Suspension [Vivitrol] 04/08/2020 12:00:00 AM EST eCW1 ([facility]) quetiapine 25 MG Oral Tablet [Seroquel] 04/08/2020 12:00:00 AM EST eCW1 ([facility]) Naltrexone 112 MG/ML Injectable Suspension [Vivitrol] 04/08/2020 12:00:00 AM EST eCW1 ([facility]) Naltrexone 112 MG/ML Injectable Suspension [Vivitrol] 04/08/2020 12:00:00 AM EST eCW1 ([facility]) quetiapine 25 MG Oral Tablet [Seroquel] 04/08/2020 12:00:00 AM EST eCW1 ([facility]) Naltrexone 112 MG/ML Injectable Suspension [Vivitrol] 04/08/2020 12:00:00 AM EST eCW1 ([facility]) Naltrexone 112 MG/ML Injectable Suspension [Vivitrol] 04/08/2020 12:00:00 AM EST eCW1 ([facility])
[2021-02-07 21:17] LABS: RSV AMPLIFICATION NEGATIVE (NEGATIVE)
--- NOTE | 2021-02-07 21:17 | HPEPDOC ---
General Date of Admission Feb 07, 2021 at 20:38 Date of Service: Feb 07, 2021 Chief Complaint The patient is a 35-year-old female admitted with a reason for visit of Impending Delirium Tremens. Source: Patient History of Present Illness Milton Beckford is a 35-year-old female with significant medical history of obesity status post Hao-en-Y procedure, smoker, anxiety/depression and EtOH abuse who arrives with interest in medical support alcohol detox. Patient reports that she last drank about 24 hours ago 12 pack beer and small bottle of vodka. She endorses at baseline daily drinking of 6 to 12 pack beer and 1-2 bottles of liquor for the past month, since her last timeframe of sobriety. She alludes to times of binge drinking and times of sobriety. She reports that she has detoxed several times in past. It should be noted she is somewhat withdrawn, self reflective and with possibly embarrassed affect which limits some of detailing-she needs to be asked further questions for her to divulge further details. Patient reports that she has a bed at [facility] however has not been able to yet go for rehab. During course of ER exam patient became tachycardic heart rate increased from 110 to 130s, patient began having tremors, shaky and diaphoretic as well as low- grade temp increased 99.6 from 96.1. Patient endorses anxiety and nausea. Initial lab work blood glucose 69, tox ethyl alcohol 0.208, WBC 3.8, sodium 140,k3.9, creatinine 0.61, AST 5 6, ALT 50, alk phos 91, lipase 170, hCG negative, CK 131. Given patient tachycardia and displaying elevated withdrawal symptoms with CIWA score greater than 8; patient will be admitted for further evaluation management of presenting concerns. Additional to mention: During admission process, patient's surrogate medical decision-maker, Justin Lundberg (boyfriend) reportedly called ER provider and offered additional HPI. Boyfriend endorsed that he would no longer buy alcohol for the patient as she has a recent DUI and court appointed mandate for rehab at [facility]. The timing of the rehab is believed to be bed available next week. Home Medications Scheduled Biotin (Biotin) 1 Mg Capsule, 1 MG PO DAILY, (Reported) Scheduled PRN Citalopram Hydrobromide (Celexa) 40 Mg Tablet, 40 MG PO DAILY PRN for DEPRESS ION, (Reported) Disulfiram (Disulfiram) 250 Mg Tablet, 250 MG PO DAILY PRN for ALCOHOL DEPENDENCE, (Reported) Gabapentin (Gabapentin) 300 Mg Capsule, 300 MG PO DAILY PRN for ANXIETY, (Reported) Hydroxyzine Pamoate (Vistaril) 25 Mg Capsule, 25 MG PO DAILY PRN for ANXIETY, (Reported) Allergies Coded Allergies: No Known Allergies (Unverified , 11/19/19) Past Medical History Medical History EtOH use, depression, anxiety, history of transaminitis Surgical History Denies surgery Family History Significant Family History: Hypertension Social History * Smoker: current smoker Alcohol: heavy Recent Travel/Sick Contacts: Denies: Recent travel, Recent sick contacts Psychosocial History: Anxiety, Depression (Denies suicidal ideation) Patient lives with her boyfriend who is her medical surrogate decision-maker A-FIB/CHADSVASC A-FIB History Current/History of A-Fib/PAF?: No Current PO Anticoag Therapy: No Review of Systems Constitutional: Reports: Other (Diaphoresis, tremors); Denies: Chills, Fever, Night Sweats Eyes: Denies: Pain, Vision change ENT: Denies: Head Aches, Ear Pain, Dysphagia Skin: Denies: Rash, Lesions, Breakdown Pulmonary: Denies: Dyspnea, Cough Cardiovascular: Reports: Palpitations; Denies: Chest Pain, Orthopnea, Paroxysmal Noc. Dyspnea, Lt Headedness Gastrointestinal: Reports: Nausea; Denies: Vomiting, Abdominal Pain, Diarrhea Genitourinary: Denies: Dysuria, Frequency, Incontinence, Retention Hematologic: Denies: Bruising, Bleeding Excessively Musculoskeletal: Denies: Neck Pain, Back Pain, Joint Pain, Muscle Pain, Spasms Neurological: Reports: Weakness; Denies: Numbness, Change in speech, Confusion Psych: Reports: Anxiety; Denies: Depression, Memory Issues, Thoughts of Self Harm Physical Examination General Exam: Positive: Alert, Cooperative, Mild Distress Eye Exam: Positive: PERRLA, Conjunctiva & lids normal, EOMI; Negative: Sclera icteric ENT Exam: Positive: Atraumatic, Mucous membr. moist/pink, Pharynx Normal Neck Exam: Positive: Supple; Negative: JVD, thyromegaly Chest Exam: Positive: Clear to auscultation, Normal air movement Heart Exam: Positive: Tachycardic, Regular Rhythm, Normal S1, Normal S2; Negative: Murmurs, Rubs Telemetry: Positive: Sinus, Tachycardia Abdomen Exam: Positive: Normal bowel sounds, Soft; Negative: Tenderness, Hepatospenomegaly Extremity Exam: Positive: Normal pulses; Negative: Clubbing, Cyanosis, Edema Skin Exam: Positive: Other skin issue (Diaphoresis hands); Negative: Nl turgor and temperature, Breakdown, Lesion Neuro Exam: Positive: Normal Gait, Cranial Nerves 3-12 NL, Reflexes 2+; Negative: Normal Speech (Rapid speech) Psych Exam: Positive: Mental status NL, Anxiety, Oriented x 3, Other (Patient oriented x3 but does have trouble focusing. ); Negative: Mood NL Other physical findings Notable tremors Vital Signs Vital Signs Date Time Temp Pulse Resp B/P (MAP) Pulse Ox O2 Delivery O2 Flow Rate FiO2 02/07/21 19:47 99.6 129 17 116/68 (84) 97 Room Air Laboratory Data Labs 24H Laboratory Tests 2 02/07/21 16:06: Nucleated Red Blood Cells % (auto) 0.0, Anion Gap 10, Glomerular Filtration Rate > 60.0, Calcium Level 8.6, Total Bilirubin 0.5, Direct Bilirubin 0.2, Aspartate Amino Transf (AST/SGOT) 56H, Alanine Aminotransferase (ALT/SGPT) 50, Alkaline Phosphatase 91, Total Creatine Kinase 131, Total Protein 7.2, Albumin 3.6, Albumin/Globulin Ratio 1.0L, Lipase 170, Thyroid Stimulating Hormone (TSH) 1.390, Human Chorionic Gonadotropin, Qual NEGATIVE, Salicylates Level < 1.7L, Urine Opiates Screen NEGATIVE, Urine Methadone Screen NEGATIVE, Acetaminophen Level < 2.0L, Urine Barbiturates Screen NEGATIVE, Urine Phencyclidine Screen NEGATIVE, Urine Amphetamines Screen NEGATIVE, Urine Benzodiazepines Screen NEGATIVE, Urine Cocaine Metabolite Screen NEGATIVE, Urine Cannabinoids Screen NEGATIVE, Ethyl Alcohol Level 0.208H 02/07/21 16:17: Bedside Glucose (Misc Panel) 69L 02/07/21 20:25: CBC/BMP Laboratory Tests 02/07/21 16:06 Assessment/Plan 1. Delirium tremens in setting of EtOH withdrawal: Last drink about 24 hours ago. -Monitor pt, tele, continuous pulse ox -Seizure precautions -Supportive care, symptom management: Hydration with banana bag and then normal saline, continuation of IVF pending patient fluid losses and po intake -CIWA protocol, Ativan scheduled as Librium on backorder. -thiamine, folate, multivitamin -De-escalation techniques accordingly. -Labs for electrolyte derangements, replete as needed Consider psych once patient medically stable. Reportedly, patient with possible bed at [facility] for rehab coordinate for placement accordingly. 2. Sinus tachycardia: In setting of above. Telemetry monitoring and treatment with benzos for withdrawal. Consider adjunct rate controlling agent pending patient course. 3. Transaminitis: Mildly elevated AST; she has a history of liver enzyme elevat ion given EtOH use. Monitor patient for any complications, a.m. labs. 4. Depression/anxiety: Patient denies suicidal ideation. Monitor mood, encourage nonpharmacologic methods to manage. -Encourage patient expression De-escalation techniques accordingly. Patient receiving Ativan scheduled and per CIWA scale. Patient Celexa on hold given increase in benzo use and concern for somnolence -Patient would benefit from psych consult for further recommendations pend consult per mental status during detoxing 5. Tobacco use: Encourage cessation. Nicotine patch if pt interested. 6. History of obesity and status post Hao-en-Y gastric bypass: Patient BMI at arrival 22.6. Patient increased risk for electrolyte derangements given history of gastric bypass. Continue to monitor as noted above and replete as necessary. DVT prophylaxis: SCDs, early ambulation CODE STATUS: Full code; pt identified Griffin Martinez as surrogate decision maker Disposition planning: Home pending clinical improvement versus transfer for psychiatric rehab placement Plan / VTE VTE Prophylaxis Ordered?: Yes JARED ZARATE NP Feb 07, 2021 21:05
[2021-02-07] MEDS: LORazepam 2 MG TAB PO SCH (21:32)
[2021-02-07] MEDS: THIAMINE 100 MG TAB PO SCH (21:32)
[2021-02-07 21:53] LABS: MAGNESIUM LEVEL 2.2 MG/DL (1.8-2.4)
[2021-02-07 22:37] VITALS: BP 116/82
[2021-02-08] VITALS (13 sets, daily range): BP systolic 114–131; BP diastolic 71–86; O2SAT 94–99
[2021-02-08] MEDS: LORazepam 2 MG TAB PO SCH ×2 (01:40→05:45)
[2021-02-08] MEDS: ONDANSETRON 4 MG ORAL DISINTEGRATING TAB PO PRN ×2 (02:44→21:52)
[2021-02-08] MEDS ORDERED: FOLIC ACID 1 MG in NS 50 ML IV ONE (03:00)
[2021-02-08] MEDS ORDERED: NS 1,000 ML IV SCH (03:00)
[2021-02-08] MEDS ORDERED: GLUCOSE 4GM CHEW TABLET PO PRN (03:00)
[2021-02-08] MEDS ORDERED: DEXTROSE 50% 50 ML SYRINGE IV PRN (03:00)
[2021-02-08] MEDS ORDERED: GLUCAGON INJ 1MG VIAL SC PRN (03:00)
[2021-02-08] MEDS ORDERED: THIAMINE 200MG 2ML VIAL IV ONE (03:00)
[2021-02-08] MEDS ORDERED: D5W/0.9% SODIUM CHLORIDE 1,000 ML IV ONE (04:00)
[2021-02-08 05:41] LABS: BASO % 0.5 % (0.0-1.0); HEMATOCRIT 33.5 % (36.0-47.0); HEMOGLOBIN 10.6 g/dl (12.0-15.5); LYMPH # 1.5 10^3/uL (1.5-5.0); LYMPH % 38.8 % (24.0-44.0); MEAN CORPUSCULAR HEMOGLOBIN 27.2 pg (27.0-33.0); MEAN CORPUSCULAR HGB CONC 31.6 g/dl (32.0-36.5); MEAN CORPUSCULAR VOLUME 85.9 fl (80.0-96.0); MONO # 0.2 10^3/uL (0.0-0.8); MONO % 5.1 % (2.0-8.0); NEUTROPHILS # 2.1 10^3/uL (1.5-8.5); NEUTROPHILS % 54.3 % (36.0-66.0); PLATELET COUNT, AUTOMATED 211 10^3/uL (150-450); WHITE BLOOD COUNT 3.9 10^3/uL (4.0-10.0)
[2021-02-08 05:57] LABS: HEMOGLOBIN A1c 5.1 %
[2021-02-08 06:25] LABS: BLOOD UREA NITROGEN 8 MG/DL (7-18); CALCIUM LEVEL 8.8 MG/DL (8.5-10.1); CARBON DIOXIDE LEVEL 28 MEQ/L (21-32); CHLORIDE LEVEL 104 MEQ/L (98-107); CREATININE FOR GFR 0.59 MG/DL (0.55-1.30); GLOMERULAR FILTRATION RATE > 60.0 (>60); GLUCOSE, FASTING 88 MG/DL (70-100); MAGNESIUM LEVEL 2.1 MG/DL (1.8-2.4); POTASSIUM SERUM 3.7 MEQ/L (3.5-5.1); SODIUM LEVEL 137 MEQ/L (136-145)
[2021-02-08] MEDS: THIAMINE 100 MG TAB PO SCH ×2 (08:34→21:00)
[2021-02-08] MEDS: FOLIC ACID 1 MG TAB PO SCH (08:34)
[2021-02-08] MEDS: MULTIVITAMINS/MINERALS THERAP 1 TAB PO SCH (08:34)
[2021-02-08] MEDS ORDERED: OXAZEPAM 15 MG CAP PO ONE (10:00)
--- NOTE | 2021-02-08 11:16 | IPNPDOC ---
Text Note Date of Service The patient was seen on 02/08/21. NOTE Subjective: Patient is a 35 year old female with a PMHx of Gastric bypass Hao-en-Y procedure), Alcohol dependence, Nicotine dependence, Anxiety / Depre ssion , who presented to the ER with interest in alcohol detox. Patient was admitted to the hospitalist service for further evaluation and treatment. Patient reports that she has a bed at [facility] for rehabilitation. Patient was seen and examined at the bedside. This morning patient reports that she feels fatigued reports lightheadedness. Denies any shortness breath, cough or palpitations. Has not experience any vomiting, but does report some nausea. Denies any abdominal discomfort. Denies any diarrhea, or urinary discomfort. Objective: Vitals (See below) General: Lying in bed, appears comfortable, AAOx3 HEENT: NC, AT CVS: RRR, +S1S2 Lungs: Fair air entry b/l, no wheezing, rales or rhonchi Abdomen: Soft, ND, NT, Extremities: No evidence of edema Imaging: None Assessment and plan: Alcohol withdrawal - Patient this morning appears to be calm without any visible tremors; has not experienced any hallucinations - Remains hemodynamically stable; tachycardia has resolved - c/w Telemetry monitoring - Will DC Ativan PO scheduled; will start Serax scheduled - c/w CIWA protocol with Ativan PO Alcohol dependence - c/w Thiamine, Folate, MVI Leukopenia - likely 2/2 ETOH - No signs of infection - Will monitor counts Normocytic anemia - Hg with slight decrease; likely 2/2 hemodilution - No evidence of bleeding - Will monitor counts Transaminitis (mild) - Will continue to trend - Liver profile ordered for tomorrow AM Depression / Anxiety - Patient is not experiencing any suicidal ideation Nicotine dependence - Advised smoking cessation - Will add nicotine patch s/p Obesity - s/p Hao-en-Y gastric bypass: DVT prophylaxis - c/w TEDs/Sequentials - Will add Heparin SQ Code status: - Full code Disposition: - Pending clinical improvement VS,Ewa, I+O VS, [place], I+O Laboratory Tests 02/07/21 16:06 02/08/21 05:22 Vital Signs Date Time Temp Pulse Resp B/P (MAP) Pulse Ox O2 Delivery O2 Flow Rate FiO2 02/08/21 08:00 98.0 94 18 126/83 (97) 95 Room Air I&O- Last 24 Hours up to 6 AM 02/08/21 05:59 Intake Total 1240 ml Output Total 250 ml Balance 990 ml TAMY WATERMAN MD Feb 08, 2021 11:16
[2021-02-08] MEDS ORDERED: OXAZEPAM 15 MG CAP PO SCH (14:00)
[2021-02-08] MEDS: HEPARIN SOD (PORCINE) 5000UNITS/ML 1ML VIAL/SYRINGE SQ SCH ×2 (14:00→21:13)
[2021-02-08] MEDS: LORazepam 2 MG TAB PO PRN ×2 (14:01→16:04)
[2021-02-08] MEDS ORDERED: LORazepam 2 MG/ML VIAL IV PRN (17:45)
[2021-02-08] MEDS: LORazepam 2 MG/ML VIAL IV PRN ×2 (19:40→21:52)
[2021-02-08] MEDS: OXAZEPAM 15 MG CAP PO SCH (19:40)
[2021-02-09] VITALS (16 sets, daily range): BP systolic 101–131; BP diastolic 65–83; O2SAT 97–99
[2021-02-09] MEDS ORDERED: LORazepam 2 MG TAB PO SCH
[2021-02-09] MEDS: OXAZEPAM 15 MG CAP PO SCH ×4 (02:11→20:34)
[2021-02-09] MEDS: LORazepam 2 MG/ML VIAL IV PRN ×5 (02:11→20:33)
[2021-02-09 05:21] LABS: BASO % 0.3 % (0.0-1.0); EOS # 0.1 10^3/uL (0.0-0.5); HEMATOCRIT 34.1 % (36.0-47.0); HEMOGLOBIN 10.7 g/dl (12.0-15.5); LYMPH # 1.8 10^3/uL (1.5-5.0); LYMPH % 29.4 % (24.0-44.0); MEAN CORPUSCULAR HEMOGLOBIN 27.2 pg (27.0-33.0); MEAN CORPUSCULAR HGB CONC 31.4 g/dl (32.0-36.5); MEAN CORPUSCULAR VOLUME 86.8 fl (80.0-96.0); MONO # 0.4 10^3/uL (0.0-0.8); MONO % 6.8 % (2.0-8.0); NEUTROPHILS # 3.7 10^3/uL (1.5-8.5); NEUTROPHILS % 61.2 % (36.0-66.0); PLATELET COUNT, AUTOMATED 194 10^3/uL (150-450); RED BLOOD COUNT 3.93 10^6/uL (4.00-5.40); WHITE BLOOD COUNT 6.1 10^3/uL (4.0-10.0)
[2021-02-09 05:49] LABS: ALBUMIN 2.9 GM/DL (3.2-5.2); ALT/SGPT 39 U/L (12-78); BILIRUBIN,DIRECT 0.2 MG/DL (0.0-0.2); BILIRUBIN,TOTAL 0.5 MG/DL (0.2-1.0); BLOOD UREA NITROGEN 6 MG/DL (7-18); CALCIUM LEVEL 8.9 MG/DL (8.5-10.1); CARBON DIOXIDE LEVEL 27 MEQ/L (21-32); CHLORIDE LEVEL 107 MEQ/L (98-107); CREATININE FOR GFR 0.62 MG/DL (0.55-1.30); GLOMERULAR FILTRATION RATE > 60.0 (>60); GLUCOSE, FASTING 87 MG/DL (70-100); MAGNESIUM LEVEL 2.2 MG/DL (1.8-2.4); POTASSIUM SERUM 3.9 MEQ/L (3.5-5.1); SODIUM LEVEL 139 MEQ/L (136-145); TOTAL PROTEIN 6.1 GM/DL (6.4-8.2)
[2021-02-09] MEDS: HEPARIN SOD (PORCINE) 5000UNITS/ML 1ML VIAL/SYRINGE SQ SCH ×4 (06:00→22:13)
[2021-02-09] MEDS: FOLIC ACID 1 MG TAB PO SCH (08:39)
[2021-02-09] MEDS: MULTIVITAMINS/MINERALS THERAP 1 TAB PO SCH (08:39)
[2021-02-09] MEDS: ONDANSETRON 4 MG ORAL DISINTEGRATING TAB PO PRN (08:39)
[2021-02-09] MEDS: THIAMINE 100 MG TAB PO SCH ×2 (08:40→20:34)
[2021-02-09] MEDS: NICOTINE 7 MG/24 HR TRANSDERMAL TD SCH (09:00)
--- NOTE | 2021-02-09 11:37 | IPNPDOC ---
Subjective Date Seen The patient was seen on 02/09/21. Subjective Chief Complaint/HPI Patient reported she drinks a 12-pack beer on top of available liquors dailiy for years. Patient reported she feels nauseous without emesis. She reported she continues to have palpitation, feeling warm, and has cold sweats. She reported mild amount of diarrhea but denies blood in stool She denies dysuria, hematuria, or tremors A 10-point review of system negative aside from positive findings in HPI Objective Physical Examination General Exam: Positive: Alert, Cooperative, Mild Distress Eye Exam: Positive: PERRLA, Conjunctiva & lids normal; Negative: Sclera icteric ENT Exam: Positive: Atraumatic, Mucous membr. moist/pink Neck Exam: Positive: Supple; Negative: JVD, thyromegaly Chest Exam: Positive: Clear to auscultation, Normal air movement; Negative: Rales, Rhonchi, Wheezing, Diminished Heart Exam: Positive: Rate Normal, Regular Rhythm, Normal S1, Normal S2; Negative: Murmurs, Rubs Abdomen Exam: Positive: Normal bowel sounds, Soft; Negative: Tenderness Extremity Exam: Negative: Clubbing, Cyanosis, Edema, Tenderness Skin Exam: Negative: Nl turgor and temperature, Breakdown, Lesion Neuro Exam: Positive: Normal Speech, Cranial Nerves 3-12 NL Psych Exam: Positive: Mental status NL, Anxiety, Oriented x 3; Negative: Mood NL Assessment /Plan Assessment #Alcohol withdrawal - No visible tremors; Patient able to carry normal conversation - Her vital signs continued to be stable. Reported nausea, palpitation, and cold sweats likely due to alcohol withdrawal - continue Telemetry monitoring - Scheduled Serax scheduled and CIWA protocol with Ativan IV PRN #Alcohol dependence - continue with Thiamine, Folate, and multivitamins #Leukopenia likely associated with ETOH use, resolved - Continued to have stable vital signs - Continue to monitor CBC #Normocytic anemia likely 2/2 hemodilution - Hg on 02/08 slightly decreased compared to initial Hg upon ER arrival - Hg stable since 02/08 - No evidence of bleeding - Continue to monitor with CBC #Transaminitis, mild, resolved - Continue to monitor with CMP #Depression / Anxiety - Patient is not experiencing any suicidal ideation #Nicotine dependence - Nicotine patch ordered #s/p Obesity - s/p Hao-en-Y gastric bypass - Continue multivitamin DVT prophylaxis: heparin SC, SCD, and TEDS Disposition: pending clinical improvement Plan/VTE VTE Prophylaxis Ordered?: Yes VS, I&O, 24H, Fishbone Vital Signs/I&O Vital Signs Date Time Temp Pulse Resp B/P (MAP) Pulse Ox O2 Delivery O2 Flow Rate FiO2 02/09/21 10:46 99.1 98 18 124/83 (97) 98 Room Air I&O- Last 24 Hours up to 6 AM 02/09/21 06:00 Intake Total 2140 ml Output Total 1000 ml Balance 1140 ml Laboratory Data 24H LABS Laboratory Tests 2 02/08/21 15:09: Bedside Glucose (Misc Panel) 56L 02/08/21 16:23: Bedside Glucose (Misc Panel) 112H 02/08/21 18:09: Bedside Glucose (Misc Panel) 97 02/09/21 04:57: Immature Granulocyte % (Auto) 0.3, Neutrophils (%) (Auto) 61.2, Lymphocytes (%) (Auto) 29.4, Monocytes (%) (Auto) 6.8, Eosinophils (%) (Auto) 2.0, Basophils (%) (Auto) 0.3, Neutrophils # (Auto) 3.7, Lymphocytes # (Auto) 1.8, Monocytes # (Au to) 0.4, Eosinophils # (Auto) 0.1, Basophils # (Auto) 0.0, Nucleated Red Blood Cells % (auto) 0.0, Anion Gap 5L, Glomerular Filtration Rate > 60.0, Calcium Level 8.9, Magnesium Level 2.2, Total Bilirubin 0.5, Direct Bilirubin 0.2, Aspartate Amino Transf (AST/SGOT) 30, Alanine Aminotransferase (ALT/SGPT) 39, Alkaline Phosphatase 91, Total Protein 6.1L, Albumin 2.9L, Albumin/Globulin Ratio 0.9L CBC/BMP Laboratory Tests 02/09/21 04:57 GME ATTESTATION GME ATTESTATION My faculty preceptor for this patient encounter was physically present during the encounter and was fully available. All aspects of the patient interview, examination, medical decision making process, and medical care plan development were reviewed and approved by the faculty preceptor. The faculty preceptor is aware and concurs with the plan as stated in the body of this note and will attest to such by his/her cosignature. ATTENDING NOTE I, Vijesh Waterman, have independently examined this patient and performed my own physical exam, as well as reviewed the documentation and edited where necessary with the resident. For medical students we have performed the physical exam together and discussed medical decision making and I have verified the history. I have discussed in detail with the resident / student the findings and plan of treatment as documented by the resident / student and edited their note. I agree with their findings and treatment plan and have edited their documentation. I will continue to follow the patient during this hospital stay. ALIS KIM DO Feb 09, 2021 11:37 TAMY WATERMAN MD Feb 09, 2021 12:34
[2021-02-09] MEDS ORDERED: RAMELTEON 8 MG TAB (ROZEREM) PO SCH (21:00)
[2021-02-09] MEDS ORDERED: LORazepam 1 MG TAB PO SCH (22:00)
[2021-02-10] VITALS: BP 92/55
[2021-02-10] MEDS: OXAZEPAM 15 MG CAP PO SCH ×2 (02:23→08:22)
[2021-02-10 04:00] VITALS: BP 108/71
[2021-02-10 05:31] LABS: BASO % 0.3 % (0.0-1.0); EOS # 0.2 10^3/uL (0.0-0.5); EOS % 2.2 % (0.0-3.0); HEMATOCRIT 32.1 % (36.0-47.0); HEMOGLOBIN 10.1 g/dl (12.0-15.5); LYMPH # 1.8 10^3/uL (1.5-5.0); LYMPH % 25.1 % (24.0-44.0); MEAN CORPUSCULAR HEMOGLOBIN 27.5 pg (27.0-33.0); MEAN CORPUSCULAR HGB CONC 31.5 g/dl (32.0-36.5); MEAN CORPUSCULAR VOLUME 87.5 fl (80.0-96.0); MONO # 0.5 10^3/uL (0.0-0.8); MONO % 6.9 % (2.0-8.0); NEUTROPHILS # 4.7 10^3/uL (1.5-8.5); NEUTROPHILS % 65.2 % (36.0-66.0); PLATELET COUNT, AUTOMATED 181 10^3/uL (150-450); RED BLOOD COUNT 3.67 10^6/uL (4.00-5.40); WHITE BLOOD COUNT 7.3 10^3/uL (4.0-10.0)
[2021-02-10 05:59] LABS: ALBUMIN 2.8 GM/DL (3.2-5.2); ALT/SGPT 38 U/L (12-78); BILIRUBIN,DIRECT 0.2 MG/DL (0.0-0.2); BILIRUBIN,TOTAL 0.4 MG/DL (0.2-1.0); BLOOD UREA NITROGEN 10 MG/DL (7-18); CALCIUM LEVEL 8.4 MG/DL (8.5-10.1); CARBON DIOXIDE LEVEL 26 MEQ/L (21-32); CHLORIDE LEVEL 108 MEQ/L (98-107); CREATININE FOR GFR 0.53 MG/DL (0.55-1.30); GLOMERULAR FILTRATION RATE > 60.0 (>60); GLUCOSE, FASTING 93 MG/DL (70-100); MAGNESIUM LEVEL 2.1 MG/DL (1.8-2.4); POTASSIUM SERUM 3.9 MEQ/L (3.5-5.1); SODIUM LEVEL 139 MEQ/L (136-145); TOTAL PROTEIN 5.9 GM/DL (6.4-8.2)
[2021-02-10] MEDS: HEPARIN SOD (PORCINE) 5000UNITS/ML 1ML VIAL/SYRINGE SQ SCH (06:00)
[2021-02-10 08:00] VITALS: BP 124/87
[2021-02-10] MEDS: FOLIC ACID 1 MG TAB PO SCH (08:22)
[2021-02-10] MEDS: THIAMINE 100 MG TAB PO SCH (08:22)
[2021-02-10] MEDS: MULTIVITAMINS/MINERALS THERAP 1 TAB PO SCH (08:23)
[2021-02-10] MEDS: NICOTINE 7 MG/24 HR TRANSDERMAL TD SCH (08:23)
[2021-02-10] MEDS ORDERED: LORazepam 2 MG TAB PO PRN (08:35)
[2021-02-10] MEDS ORDERED: FOLI1TAB11 PO (10:10)
[2021-02-10] MEDS ORDERED: NICO7PA TD (10:10)
[2021-02-10] MEDS ORDERED: LORA2TA PO (10:10)
[2021-02-10] MEDS ORDERED: ACET1TAB55 PO (10:10)
[2021-02-10] MEDS ORDERED: ONDA4TAB6 PO (10:10)
[2021-02-10] MEDS ORDERED: VITMTA PO (10:10)
[2021-02-11] MEDS ORDERED: LORazepam 1 MG TAB PO SCH
--- NOTE | 2021-02-24 18:26 | DS.PDOC ---
Discharge Summary General Date of Admission Feb 07, 2021 at 20:38 Date of Discharge 02/10/2021 Attending Physician: PADDY WRIGHT MD Discharge Summary PROCEDURES PERFORMED DURING STAY: None ADMITTING DIAGNOSES: Alcohol withdrawal DISCHARGE DIAGNOSES: Alcohol use disorder with active withdrawal COMPLICATIONS/CHIEF COMPLAINT: Impending Delirium Tremens. HISTORY OF PRESENT ILLNESS: 35-year-old W with significant medical history of obesity status post Hao-en-Y procedure, smoker, anxiety/depression and EtOH abuse who presented to the ED with interest in medical support for alcohol cessation with a history of DTs. Patient reported that she last drank about 24 hours prior to presentation, a 12 pack of beer and a small bottle of vodka. She endorsed at baseline daily drinking 6 to 12 pack of beer and 1-2 bottles of liquor daily for the past month, since her last timeframe of sobriety. At the time of presentation, she reported that she was actually awaiting an inpatient rehab bed at [facility] and had completed the intake but no bed was available yet. HOSPITAL COURSE: In the ED, she was tachycardic heart rate increased from 110 to 130s, tremulous, shaky and diaphoretic and had a low-grade temp increased 99.6 from 96.1. Patient endorsed anxiety and nausea. Initial lab work blood glucose 69, tox ethyl alcohol 0.208, WBC 3.8, sodium 140,k3.9, creatinine 0.61, AST 5 6, ALT 50, alk phos 91, lipase 170, hCG negative, CK 131. Given patient tachycardia and displaying elevated withdrawal symptoms with CIWA score greater than 8 and was admitted for alcohol withdrawal with c/f impending delirium tremens. She did well on the CIWA protocol with scheduled serax and symptom triggered ativan per CIWA score and she was discharged home on 02/10 with plan for prompt admission to inpatient alcohol rehab at [place]. DISCHARGE MEDICATIONS: Please see below. ALLERGIES: Please see below. PHYSICAL EXAMINATION ON DISCHARGE: VITAL SIGNS: Please see below. General: Alert, Cooperative, NAD Eyes: PERRLA, Conjunctiva & lids normal, EOMI, anicteric ENT: Atraumatic, Mucous membr. moist/pink, Pharynx Normal Neck: Supple, no JVD, no thyromegaly Chest: Clear to auscultation, Normal air movement Heart: RRR, no m/r/g Abdomen: Normal bowel sounds, Soft, NTND Extremities: Normal pulses, no Edema Neuro: Normal Gait, Cranial Nerves 3-12 NL, normal gait Psych: AOx3, normal mood LABORATORY DATA: Please see below. IMAGING: None PROGNOSIS: Good ACTIVITY: As tolerated DIET: regular DISCHARGE PLAN: Home with upcoming plan for inpatient alcohol rehab. DISPOSITION: 01 Home, Self-Care. DISCHARGE INSTRUCTIONS: PCP within 7d. Home with upcoming plan for inpatient alcohol rehab. ITEMS TO FOLLOWUP ON ON OUTPATIENT: Alcohol cessation DISCHARGE CONDITION: Stable TIME SPENT ON DISCHARGE: 39 minutes. Discharge Medications Scheduled Biotin (Biotin) 1 Mg Capsule, 1 MG PO DAILY, (Reported) Folic Acid (Folic Acid) 1 Mg Tablet, 1 MG PO DAILY Multivitamins (Thera M Plus Tablet) 1 Each Tablet, 1 TAB PO DAILY Nicotine (Nicotine Patch) 7 Mg Patch.td24, 1 PATCH TD DAILY Scheduled PRN Citalopram Hydrobromide (Celexa) 40 Mg Tablet, 40 MG PO DAILY PRN for DEPR ESSION, (Reported) Disulfiram (Disulfiram) 250 Mg Tablet, 250 MG PO DAILY PRN for ALCOHOL DEPEND ENCE, (Reported) Gabapentin (Gabapentin) 300 Mg Capsule, 300 MG PO DAILY PRN for ANXIETY, (Reported) Hydroxyzine Pamoate (Vistaril) 25 Mg Capsule, 25 MG PO DAILY PRN for ANXIETY, (R eported) Lorazepam (Lorazepam) 2 Mg Tablet, 2 MG PO Q8HP PRN for SEE PROTOCOL Ondansetron (Ondansetron Odt) 4 Mg Tab.rapdis, 2 MG PO Q8HP PRN for NAUSEA OR VOMITING Allergies Coded Allergies: No Known Allergies (Unverified , 02/20/21) PADDY WRIGHT MD Feb 24, 2021 18:26
== END 2021-02-10 10:51 | disposition home or self-care (01) | DRG 775 ==
LOC: M ED 14:07 → EDBD 14:07 → M ED INP 20:38 → ENRESERV 21:50 → M PCU 22:33
PROVIDERS: ADMIT Internal Medicine; ATTEND Internal Medicine
DX: F10.231 Alcohol dependence with withdrawal delirium (principal); F32.A Depression, unspecified; R00.0 Tachycardia, unspecified; R74.01 Elevation of levels of liver transaminase levels; D72.819 Decreased white blood cell count, unspecified; Z98.84 Bariatric surgery status; F17.210 Nicotine dependence, cigarettes, uncomplicated; F41.9 Anxiety disorder, unspecified; Z20.822 Contact with and (suspected) exposure to COVID-19; Z79.899 Other long term (current) drug therapy; D64.9 Anemia, unspecified

== ENCOUNTER 2021-02-20 00:26 | Emergency (ER) | payer OTHER ==
[~2021-02-20] VITALS: Ht 167.6 cm; Wt 65.9 kg
[~2021-02-20 00:26] MED LIST changes: +ACET1TAB55 PO; +LORA2TA PO; +NICO7PA TD; +ONDA4TAB6 PO; +THIAMINE 100 MG TAB PO SCH
[2021-02-20] MEDS ORDERED: LORazepam 2 MG TAB PO PRN (00:35)
[2021-02-20] MEDS ORDERED: OXAZEPAM 15 MG CAP PO ONE (00:35)
--- OUTSIDE RECORDS SUMMARY | 2021-02-20 00:42 | CCD ---
Author Author [facility] Organization [facility] Address Unknown Phone Unavailable Care Team Providers Care Business Operations Coordinator Name Role Phone Eladio David Unavailable PROBLEMS Type Condition ICD9-CM Code [id number] Code Onset Dates Condition S tatus W/U Status Risk SNOMED Code Notes Problem Hypokalemia E87.6 Active confirmed 52454218 Problem Tobacco abuse Z72.0 Active confirmed 759033 05 Problem Anxiety F41.9 Active confirmed 52691917 Problem Fatty liver K76.0 Active confirmed 70868139 7 Problem Alcohol use disorder, mild, in early remission F10 .11 Active confirmed 99003112 Problem Depression with anxiety F41.8 Active confirmed 245729167 Problem Alcohol dependence in early, early partial, sustained full, or sustained partial remission F10.21 Active confirmed 148924172 Problem Alcohol use disorder, mild, abuse F10.10 Active confirmed 61713040 Problem Alcohol abuse F10.10 Active confirmed 053882 05 Problem Hospital discharge follow-up Z09 Active confirme d 326258960 Problem Nicotine dependence with current use F17.200 Act corby confirmed 189344847 Problem Psychophysiological insomnia F51.04 Active confirme d 227918374 Problem Severe episode of recurrent major depressive disorder, without psychotic features F33.2 Active confirmed 31417204 ALLERGIES No Known Allergies ENCOUNTERS from 1984 to 2021-02-11 Encounter Location Date Provider Diagnosis [address] [phone] [place] [address] Jan, David Hendricks Encounter for initial prescr iption of contraceptives, unspecified contraceptive Z30.019 IMMUNIZATIONS No Information SOCIAL HISTORY Tobacco Use: Social History Observation Description Date Details (start date - stop date) Current Smoker Sex Assigned At : Social History Observation Description Sex Assigned At Unknown Education: Question Answer Notes Level of Education: High School Audit Question Answer Notes Total Score: 0 Interpretation: Alcohol Education Language: Question Answer Notes Languages spoken: Telugu Restorationist: Question Answer Notes Restorationist No adventism beliefs that would impact health care. Sexual [...] a day for 30 day(s) Active PROCEDURES from 1984 to 2021-02-11 Procedure Date Ordered Result Body Site Medication: Depo-Provera 150mg/1mL IM (Medroxyprogesterone A cetate) 2021-02-11 N/A RESULTS Component Value Reference Range [facility] Reviewed date:02/11/2021 13:58:01 Interpretation:Negative Performing Lab:[facility] [place], [place] [address] GLUCOSE, FASTING REASON FOR VISIT depo MEDICAL (GENERAL) HISTORY Type Description Date Medical [...] Notes Treatment Notes Treatm ent Clinical Notes Jan, Encounter for initial prescr iption of contraceptives, unspecified contraceptive (ICD-10 - Z30.019) PLAN OF TREATMENT Medication Medication Name Sig Start Date Stop Date CeleXA 40 MG take one tablet by mouth every day Orally Once a day for 30 days Next Appt Details Provider Name:Tonya Bill, 02:00:00 PM, [address] [facility], , [place], [address], Insurance Providers Payer Name Payer Address Payer Phone Insured Name Patient Relati onship to Insured Coverage Start Date Coverage End Date [facility] [address] [facility] [id number] TAI ARAYA self
--- OUTSIDE RECORDS SUMMARY | 2021-02-20 00:43 | CCD ---
Author Author [facility] Organization [facility] Address Unknown Phone Unavailable Care Team Providers Care Brass Finisher Name Role Phone Salena AQUINO Unavailable Unavailable ZEGILNicholeEW SHAKER TENDER Unavailable Unavailable ZEGIL D GEORGE SHAKER TENDER Unavailable Unavailable ZEGIL, D GEORGE SHAKER TENDER Unavailable Unavailable Jenni Spring MD Unavailable Unavailable [...] Unavailable Unavailable Con Penaloza MD Unavailable Unavailable PorCon gupta MD Unavailable Unavailable Con Penaloza MD Unavailable Unavailable PorCon gupta MD Unavailable Unavailable PorCon gupta MD Unavailable Unavailable Con Penaloza MD Unavailable Unavailable Con Penaloza MD Unavailable Unavailable Con Penaloaz MD Unavailable Unavailable PorCon gupta MD Unavailable Unavailable Con Penaloza MD Unavailable Unavailable PorCon gupta MD Unavailable Unavailable Con Penaloza MD Unavailable Unavailable Con Penaloza MD Unavailable Unavailable Con Penaloza MD Unavailable Unavailable Con Penaloza MD Unavailable Unavailable Con Penaloza MD Unavailable Unavailable Con Penaloza MD Unavailable Unavailable Con Penaloza MD Unavailable Unavailable Con Penaloza MD Unavailable Unavailable Con Penaloza MD Unavailable Unavailable Rai, M Barratt PA [...] Unavailable Rai, M Barratt PA Unavailable Unavailable UNKNOWN Unavailable Unavailable CIERRA ESTRELLA Unavailable Unavailable Siebeckiekiewycz, L Dianne ACTING TEACHER Unavailable Unavailable Sienkiewycz, L Dianne ACTING TEACHER Unavailable Unavailable Sienkiewycz, L Dianne ACTING TEACHER Unavailable Unavailable Sienkiewycz, L Dianne ACTING TEACHER Unavailable Unavailable Sienkiewycz, L Dianne ACTING TEACHER Unavailable Unavailable Sienkiewycz, L Dianne ACTING TEACHER Unavailable Unavailable Sienkiewycz, L Dianne ACTING TEACHER Unavailable Unavailable Re-disclosure Warning The records that [...] is protected by Article 27-F of the [facility] Public Health law. If you continue you may have access to information: Regarding HIV / AIDS; Provided by facilities licensed or operated by the [facility] Office of Mental Health; or Provided by the [facility] Office for People With Developmental Disabilities. If such information is present, then the following [facility] mandated warning applies: This information [...] law may result in a fine or fdc sentence or both. A general authorization for the release of medical or other information is NOT sufficient authorization for further disc losure. Allergies and Adverse Reactions Type Description Substance Reaction Status Data Source(s ) Propensity to adverse reactions Propensity to adverse reacti ons No Known Drug Allergies [facility] Encounters Encounter Providers Location Date Indications Data Source(s ) Outpatient [facility] [address] 02/11/2021 12:00:00 AM EST eCW1 ([facility]) [place] [address] [facility] [address] 12/19/2020 12:00:00 AM EDT eCW1 ([facility]) [place] [address] [facility] [address] 12/15/2020 12:00:00 AM EDT eCW1 ([facility]) [place] [address] [facility] [address] 10/24/2020 12:00:00 AM EDT eCW1 ([facility]) Outpatient Attender: Jason SAINZ Physical Therapy 02:45:00 PM EDT MEDENT ([facility]) [place] [address] [facility] [address] 09/30/2020 12:00:00 AM EDT eCW1 ([facility]) [place] [address] [facility] [address] 09/30/2020 12:00:00 AM EDT eCW1 ([facility]) [place] [address] [facility] [address] 09/16/2020 12:00:00 AM EDT eCW1 ([facility]) Inpatient Attender: Cookie Spring MDAdmitter: Cookie navarro MD SURG-MED 09/12/2020 04:20:00 PM EDT - 09/13/2020 05:30:00 PM EDT [facility]. Patient discharged. Inpatient Attender: Cookie Spring MDAdmitter: Cookie navarro MD SURG-MED 09/12/2020 04:20:00 PM EDT [facility]. V Attender: Cookie Spring MDAdmitter: Cookie navarro MD SURG-MED 09/12/2020 02:55:00 PM EDT [facility]. Patient admitted. Outpatient Attender: Dianne Cesar NP SURG-NPLAB 09/12/2020 02:01:00 PM EDT [facility] [place] [address] [facility] [address] 07/15/2020 12:00:00 AM EDT eCW1 ([facility]) Out[place] [address] [facility] [address] 07/15/2020 12:00:00 AM EDT eCW1 ([facility]) [place] [address] [facility] [address] 07/08/2020 12:00:00 AM EDT eCW1 ([facility]) Outpatient [address] [facility] [address] 05/30/2020 12:00:00 AM EST eCW1 ([facility]) Outpatient [address] [facility] [address] 04/21/2020 12:00:00 AM EST eCW1 ([facility]) Outpatient [address] [facility] [address] 04/08/2020 12:00:00 AM EST eCW1 ([facility]) Unknown [address] [facility] [address] 04/08/2020 12:00:00 AM EST eCW1 ([facility]) [place] [address] [facility] [address] 04/08/2020 12:00:00 AM EST eCW1 [facility] Outpatient Attender: UNKNOWN CPSCAORT-LABEJN 03/26/2020 09:45:00 AM [facility] Inpatient Attender: Con Penaloza MDAdmitter: Con tyson MD [facility] 03/26/2020 04:22:00 AM EST - 03/29/2020 11:20:00 AM EST [id number] [facility] 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 Outpatient Attender: RAYRAY AQUINO 01/08/2020 06:00:00 PM [facility] Outpatient Attender: RAYRAY AQUINO 12/24/2019 04:00:00 PM E DT [facility] Outpatient Attender: CIERRA ESTRELLA 12/24/2019 02:00:00 PM ED T [facility] Emergency Attender: GEORGERICK WONG ED-ED 03/2019 06:06:00 PM EDT - 11/20/2019 10:45:00 PM EDT [facility] Patient discharged. Immunizations Vaccine Date Status Description Data Source(s) 10/24/2020 09:51:00 AM EDT completed e CW1 ([facility]) 10/24/2020 09:51:00 AM EDT completed e CW1 ([facility]) 07/15/2020 09:52:00 AM EDT completed e CW1 ([facility]) 07/15/2020 09:52:00 AM EDT completed e CW1 ([facility]) 07/15/2020 09:52:00 AM EDT completed e CW1 ([facility]) 07/15/2020 09:52:00 AM EDT completed e CW1 ([facility]) 07/15/2020 09:52:00 AM EDT completed e CW1 ([facility]) 07/15/2020 09:52:00 AM EDT completed e CW1 ([facility]) 07/15/2020 09:52:00 AM EDT completed e CW1 ([facility]) 07/15/2020 09:52:00 AM EDT completed e CW1 ([facility]) Medications Medication Brand Name Start Date Product Form Dose Route Admi nistrative Instructions Pharmacy Instructions Status Indications Reaction Description Data Source(s) Lorazepam 2 MG Oral Tablet LORAZEPAM 02/10/2021 12:00:00 AM EST tablet 9 TAKE ONE TABLET BY MOUTH EVERY 8 HOURS NEEDED MAXIMUM DAILY DOSE = 3 TAKE ONE TABLET BY MOUTH EVERY 8 HOURS NEEDED MAXIMUM DAILY DOSE = 3 SOLD: 02/10/2021 [facility] Ondansetron 4 MG Disintegrating Oral Tablet ONDANSETRON 02/10/2021 12:00:00 AM EST tablet,disintegrating 30 DISSOLVE 1 /2 TABLET ON THE TONGUE EVERY 8 HOURS NEEDED FOR NAUSEA AND VOMITING DISSOLVE 1/2 TABLET ON THE TONGUE EVERY 8 HOURS NEEDED FOR NAUSEA AND VOMITING SOLD: 02/10/2021 [facility] 325 mg 02/10/2021 12:00:00 AM EST tablet 42 TAKE TWO TABLETS BY MOUTH EVERY 4 HOURS NEEDED FOR MILD PAIN OR TEMPERATURE > 101 TAKE TWO TABLETS BY MOUTH EVERY 4 HOURS NEEDED FOR MILD PAIN OR TEMPERATURE > 101 SOLD: 02/10/2021 [facility] 1 mg 02/10/2021 12:00:00 AM EST tablet 14 TAKE ONE TABLET BY MOUTH EVERY DAY TAKE ONE TABLET BY MOUTH EVERY DAY SOLD: 02/10/2021 [facility] 7 mg/24 hr 02/10/2021 12:00:00 AM EST patch 24 hour 14 APPLY ONE PATCH TO THE SKIN AND CHANGE DAILY, ROTATING SITES APPLY ONE PATCH TO THE SKIN AND CHANGE DAILY, ROTATING SITES SOLD: 02/10/2021 [facility] Citalopram 40 MG Oral Tablet CITALOPRAM HYDROBROMIDE 01/15/2021 12:00:00 AM EDT tablet 30 TAKE ONE TABLET BY MOUTH EVERY D AY TAKE ONE TABLET BY MOUTH EVERY DAY SOLD: 01/25/2021 [facility] Disulfiram 250 MG Oral Tablet Disulfiram 250 MG 12/12/2020 12:00:00 AM EDT 1.0 {tablet} active Disulfiram 250 MG eCW1 ([facility]) Disulfiram 250 MG Oral Tablet Disulfiram 250 MG 12/12/2020 12:00:00 AM EDT 1.0 {tablet} active Disulfiram 250 MG eCW1 ([facility]) Disulfiram 250 MG Oral Tablet Disulfiram 250 MG 12/12/2020 12:00:00 AM EDT 1.0 {tablet} active Disulfiram 250 MG eCW1 ([facility]) 250 mg 09/30/2020 12:00:00 AM EDT tablet [...] ts} active Acamprosate Calcium 333 MG eCW1 ([facility]) Acamprosate calcium 333 MG Delayed Relea se Oral Tablet Acamprosate Calcium 333 MG Acamprosate Calcium 333 MG 09/23/2020 12:00:00 AM EDT 2.0 {table ts} active Acamprosate Calcium 333 MG eCW1 ([facility]) Acamprosate calcium 333 MG Delayed Relea se Oral Tablet Acamprosate Calcium 333 MG Acamprosate Calcium 333 MG 09/23/2020 12:00:00 AM EDT 2.0 {table ts} active Acamprosate Calcium 333 MG eCW1 ([facility]) Acamprosate calcium 333 MG Delayed Relea se Oral Tablet Acamprosate Calcium 333 MG Acamprosate Calcium 333 MG 09/23/2020 12:00:00 AM EDT 2.0 {table ts} active Acamprosate Calcium 333 MG eCW1 ([facility]) Acamprosate calcium 333 MG Delayed Relea se Oral Tablet Acamprosate Calcium 333 MG Acamprosate Calcium 333 MG 09/23/2020 12:00:00 AM EDT 2.0 {table ts} active Acamprosate Calcium 333 MG eCW1 ([facility]) Acamprosate calcium 333 MG Delayed Relea se Oral Tablet Acamprosate Calcium 333 MG Acamprosate Calcium 333 MG 09/23/2020 12:00:00 AM EDT 2.0 {table ts} active Acamprosate Calcium 333 MG eCW1 ([facility]) Acamprosate calcium 333 MG Delayed Relea se Oral Tablet Acamprosate Calcium 333 MG Acamprosate Calcium 333 MG 09/23/2020 12:00:00 AM EDT 2.0 {table ts} active Acamprosate Calcium 333 MG eCW1 ([facility]) Acamprosate calcium 333 MG Delayed Relea se Oral Tablet Acamprosate Calcium 333 Mg Tablet.dr Dick, 666 Mg Oral Acamprosate Calcium 333 Mg Tablet. Tablet., 666 Mg Oral 09/13/2020 12:00:00 AM EDT 666 completed Three Times a Day [facility] Acamprosate calcium 333 MG Delayed Relea se Oral Tablet Acamprosate Calcium 333 MG TABLET. Acamprosate Calcium 333 MG TABLET. 09/13/2020 12:00:00 AM EDT 666 completed Three Times a Day [facility] 25 mg 09/08/2020 12:00:00 AM EDT capsule [...] 1.0 {tablet_at_bedtime} active SEROquel 25 MG eCW1 ([facility]) Naltrexone 112 MG/ML Injectable Suspension [Vivitrol] Vivitrol 380 MG Vivitrol 380 MG 04/08/2020 12:00:00 AM EST 4.0 {ml} active Vivitrol 380 MG eCW1 ([facility]) Naltrexone 112 MG/ML Injectable Suspension [Vivitrol] Vivitrol 380 MG Vivitrol 380 MG 04/08/2020 12:00:00 AM EST 4.0 {ml} active Vivitrol 380 MG eCW1 ([facility]) Naltrexone 112 MG/ML Injectable Suspension [Vivitrol] Vivitrol 380 MG Vivitrol 380 MG 04/08/2020 12:00:00 AM EST 4.0 {ml} active Vivitrol 380 MG eCW1 ([facility]) Naltrexone 112 MG/ML Injectable Suspension [Vivitrol] Vivitrol 380 MG Vivitrol 380 MG 04/08/2020 12:00:00 AM EST 4.0 {ml} active Vivitrol 380 MG eCW1 ([facility]) Naltrexone 112 MG/ML Injectable Suspension [Vivitrol] Vivitrol 380 MG Vivitrol 380 MG 04/08/2020 12:00:00 AM EST 4.0 {ml} active Vivitrol 380 MG eCW1 ([facility]) Naltrexone 112 MG/ML Injectable Suspension [Vivitrol] Vivitrol 380 MG Vivitrol 380 MG 04/08/2020 12:00:00 AM EST 4.0 {ml} active Vivitrol 380 MG eCW1 ([facility]) Naltrexone 112 MG/ML Injectable Suspension [Vivitrol] Vivitrol 380 MG Vivitrol 380 MG 04/08/2020 12:00:00 AM EST 4.0 {ml} active Vivitrol 380 MG eCW1 ([facility]) Naltrexone 112 MG/ML Injectable Suspension [Vivitrol] Vivitrol 380 MG Vivitrol 380 MG 04/08/2020 12:00:00 AM EST 4.0 {ml} active Vivitrol 380 MG eCW1 ([facility]) Naltrexone 112 MG/ML Injectable Suspension [Vivitrol] Vivitrol 380 MG Vivitrol 380 MG 04/08/2020 12:00:00 AM EST 4.0 {ml} active Vivitrol 380 MG eCW1 ([facility]) Naltrexone 112 MG/ML Injectable Suspension [Vivitrol] Vivitrol 380 MG Vivitrol 380 MG 04/08/2020 12:00:00 AM EST 4.0 {ml} active Vivitrol 380 MG eCW1 ([facility]) Naltrexone 112 MG/ML Injectable Suspension [Vivitrol] Vivitrol 380 MG Vivitrol 380 MG 04/08/2020 12:00:00 AM EST 4.0 {ml} active Vivitrol 380 MG eCW1 ([facility]) Naltrexone 112 MG/ML Injectable Suspension [Vivitrol] Vivitrol 380 MG Vivitrol 380 MG 04/08/2020 12:00:00 AM EST 4.0 {ml} active Vivitrol 380 MG eCW1 ([facility]) Naltrexone 112 MG/ML Injectable Suspension [Vivitrol] Vivitrol 380 MG Vivitrol 380 MG 04/08/2020 12:00:00 AM EST 4.0 {ml} active Vivitrol 380 MG eCW1 ([facility]) Naltrexone 112 MG/ML Injectable Suspension [Vivitrol] Vivitrol 380 MG Vivitrol 380 MG 04/08/2020 12:00:00 AM EST 4.0 {ml} active Vivitrol 380 MG eCW1 ([facility]) quetiapine 25 MG Oral Tablet [Seroquel] SEROquel 25 MG SEROq uel 25 MG 04/08/2020 12:00:00 AM EST 1.0 {tablet_at_bedtime} active SEROquel 25 MG eCW1 ([facility]) Naltrexone 112 MG/ML Injectable Suspension [Vivitrol] Vivitrol 380 MG Vivitrol 380 MG 04/08/2020 12:00:00 AM EST 4.0 {ml} active Vivitrol 380 MG eCW1 ([facility]) Naltrexone 112 MG/ML Injectable Suspension [Vivitrol] Vivitrol 380 MG Vivitrol 380 MG 04/08/2020 12:00:00 AM EST 4.0 {ml} active Vivitrol 380 MG eCW1 ([facility]) Naltrexone 112 MG/ML Injectable Suspension [Vivitrol] Vivitrol 380 MG Vivitrol 380 MG 04/08/2020 12:00:00 AM EST 4.0 {ml} active Vivitrol 380 MG eCW1 ([facility]) quetiapine 25 MG Oral Tablet [Seroquel] SEROquel 25 MG SEROq uel 25 MG 04/08/2020 12:00:00 AM EST 1.0 {tablet_at_bedtime} active SEROquel 25 MG eCW1 ([facility]) Naltrexone 112 MG/ML Injectable Suspension [Vivitrol] Vivitrol 380 MG Vivitrol 380 MG 04/08/2020 12:00:00 AM EST 4.0 {ml} active Vivitrol 380 MG eCW1 ([facility]) Insurance Providers Payer name Policy type / Coverage type Policy ID Covered democrat ID Covered democrat's relationship to cardoso Policy Cardoso Plan Information [facility] [id number] Unemploye d [id number] [facility] [id number] S [id number] [facility] [id number] Unemploye d [id number] [facility] COMM[facility] PLAN [id number] SP [id number] SELF PAY SP [facility]) O [id number] S [id number] [facility] [place] [facility] [place] [id number] S [id number] [facility] MEDICAID [id number] S [id number] SELF PAY ONLY [id number] SP [id number] MEDICAID [id number] [facility] COMMUNITY PLAN MCDHMO NO CARDS SP NO CARDS [facility] [id number] Unemploye d [id number] SELF PAY Unemployed [facility] [id number] SP [id number] [facility] [id number] S [id number] [facility] [id number] S [id number] SELF PAY ONLY [id number] SP [id number] MEDICAID [id number] SP [id number] [facility] [id number] [facility] [id number] [facility] [id number] [facility] [id number] ANSI-Medicaid [id number] ANSI-Medicaid [id number] [employer] COMM[employer] [place] [id number] SP [id number] [facility] COMM[facility] PL[facility] [place] [id number] SP [id number] [facility] [id number] SP [id number] ANSI-Medicaid [id number] ANSI-Medicaid [id number] MEDICAID [id number] SP [id number] MEDICAID [id number] SP [id number] [facility]([place]) O [id number] S [id number] [facility] [id number] SP [id number] [employer] [id number] SP [id number] [employer] O [id number] S [id number] [employer] [id number] SP [id number] MEDICAID - CLINIC [id number] [employer] COMMUNITY PLAN [facility] [place] [id number] SP [id number] [facility] COMMUNITY PLAN [facility] [place] [id number] SP [id number] [facility] [id number] SP [id number] Problems, Conditions, and Diagnoses Code Display Name Description Problem Type Effective Dates Data Source(s) Y90.0 Blood alcohol level of less than 20 mg/1 00 ml BLOOD ALCOHOL LEVEL OF LESS THAN 20 MG/100 ML Diagnosis 03/26/2020 04:22:[address] [facility] Z91.81 History of falling HISTORY OF FALLING Diagnosis 08/2020 04:22:00 AM [facility] M25.531 Pain in right wrist PAIN IN RIGHT WRIST Diagnosis 0 03/26/2020 04:22:00 AM [facility] Z53.29 Procedure and treatment not carried out because of patient's decision for other reasons PROC/TRTMT NOT CRD OUT BEC PT DECISION FOR OTH REASONS Diagn osis 03/26/2020 04:22:00 AM [facility] F34.1 Dysthymic disorder DYSTHYMIC DISORDER Diagnosis 08/2020 04:22:00 AM [facility] F17.210 Nicotine dependence, cigarettes, uncompl icated NICOTINE DEPENDENCE, CIGARETTES, UNCOMPLICATED Diagnosis 03/26/2020 04:22:00 AM [facility] F10.230 Alcohol dependence with withdrawal, unco mplicated ALCOHOL DEPENDENCE WITH WITHDRAWAL, UNCOMPLICATED Diagnosis 03/26/2020 04:22:00 AM [facility] F10.11 ALCOHOL ABUSE, IN REMISSION ALCOHOL ABUSE, IN REMISSIO N Diagnosis 12/24/2019 02:00:00 PM [facility] F41.9 Anxiety disorder, unspecified ANXIETY DISORDER, UNSPEC IFIED Diagnosis 12/24/2019 02:00:00 PM [facility] F10.21 Alcohol dependence, in remission ALCOHOL DEPENDE NCE, IN REMISSION Diagnosis 12/24/2019 02:00:00 PM [facility] F10.10 [id number] Alcohol use disorder, mild, abuse Problem 09/23/2020 12:00:00 AM [place] [address] ([facility]) F33.2 [id number] Severe episode of re current major depressive disorder, without psychotic features Problem 04/21/2020 12:00:00 AM [place] [address] ([facility]) F41.8 [id number] Depression with anxiety Problem 04/21/2020 1 2:00:00 AM [place] [address] ([facility]) F51.04 [id number] Psychophysiological insomnia Problem 04/08/2020 12:00:00 AM [place] [address] ([facility]) F17.200 [id number] Nicotine dependence with current use Prob darling 04/08/2020 12:00:00 AM EST eCW1 ([facility]) Surgeries/Procedures Procedure Description Date Indications Data Source(s) Injection, medroxyprogesterone acetate for contraceptive use , 150 mg 02/11/2021 12:00:00 AM EST eCW1 ([facility]) Injection, medroxyprogesterone acetate for contraceptive use , 150 mg 10/24/2020 12:00:00 AM EDT eCW1 ([facility]) OFFICE OUTPATIENT NEW 45 MINUTES 10/01/2020 12:00:00 A M EDT MEDENT ([facility] ) CLTX PHLNGL FX PROX/MIDDLE PX/F/T W/O MANJ EA 10/02/19 12:00:00 AM EDT MEDENT ([facility] ) Detoxification Services for Substance Abuse Treatment DETOXIFICATION SERVICES FOR SUBSTANCE ABUSE TREATMENT 09/12/2020 12:00:00 AM EDT [facility]. Naltrexone 380mg (Pt Supplied) 07/15/2020 12:00:00 AM EDT eCW1 ([facility]) Injection, medroxyprogesterone acetate for contraceptive use , 150 mg 07/15/2020 12:00:00 AM EDT eCW1 ([facility]) Naltrexone 380mg (Pt Supplied) 05/30/2020 12:00:00 AM EST eCW1 ([facility]) URINE TEST 04/21/2020 12:00:00 AM EST eCW1 ([facility]) Naltrexone 380mg 04/21/2020 12:00:00 AM EST eCW1 ([facility]) Injection, medroxyprogesterone acetate for contraceptive use , 150 mg 04/21/2020 12:00:00 AM EST eCW1 ([facility]) ECG ROUTINE ECG W/LEAST 12 LDS W/I&R 04/21/2020 12:00: 00 AM EST eCW1 ([facility]) Individual Counseling for Substance Abuse Treatment, [facility] INDIV THIRD STEEL POURER FOR SUBSTANCE ABUSE TREATMENT, CONTINUING CARE 03/29/2020 12:00:00 AM [facility] Detoxification Services for Substance Abuse Treatment DETOXIFICATION SERVICES FOR SUBSTANCE ABUSE TREATMENT 03/27/2020 12:00:00 AM [facility] Results ID Date Data Source [id number] 02/07/2021 08:25:00 PM EST [facility] Name Value Range Interpretation Code Description Data Nataly rce(s) Supporting Document(s) SARS coronavirus 2 RNA [Presence] in Res piratory specimen by SELMA with probe detection NEGATIVE [facility] This lab was ordered by [facility] a nd reported by [facility]. ID Date Data Source [id number] 12/29/2020 10:14:00 PM EDT [facility] Name Value Range Interpretation Code Description Data Nataly rce(s) Supporting Document(s) SARS coronavirus 2 RNA [Presence] in Res piratory specimen by SELMA with probe detection NEGATIVE [facility] This lab was ordered by [facility] a nd reported by [facility]. ID Date Data Source [id number] 12/10/2020 06:31:00 PM EDT [facility] Name Value Range Interpretation Code Description Data Nataly rce(s) Supporting Document(s) SARS-CoV-2 (COVID 19) NEGATIVE - SARS-CoV-2 (COVID19) [facility] This lab was ordered by [facility] a nd reported by [facility]. ID Date Data Source [id number] 09/13/2020 03:48:00 PM EDT [facility]. Counselor Progress NotePatient NotePatie nt chose to [facility]. Patient was provided with contactinformation for aftercare treatment options, list of current local self-help meetings, community resources sheet, as well as contact informationfor the [facility] Emotional SupportLine available 11/10. Staff spoke with patient regarding the benefits ofcompleting treatment and risks of leaving prior to recommended discharge.Patient confirmed understanding, noted having no questions or concernsand reported feeling safe at time of discharge, denying suicidal andhomicidal ideation. Nursing Director Home Health and Hospitalist were notified ofAMA. At the time of discharge, the patient received all of theirbelongings. Patient was picked up to be driven home by her boyfriend.Patient stated the reason for leaving AMA was she needed to go home anddeal with matters at home with her daughter and she needs to be at homein her own bed.Dictated on 09/13/201547 by Shelby CurtisTranscribed on 09/13/201547 by Liz Curtis by Shelby Curtis on 09/13/20 1558Sign by: Shelby Curtis Name Value Range Interpretation Code Description Data Nataly rce(s) Supporting Document(s) ID Date Data Source [id number] 09/13/2020 03:13:00 PM EDT [facility]. Counselor Progress NotePatient NoteCOUNS SHELBY MEDEROS, MS, CASAC-T, COMPLETED THE SAFE-T ASSESSMENTWITH THE PATIENT (SEE IN CHART).Dictated on 09/13/201512 by Shelby CurtisTranscribed on 09/13/201512 by Liz Curtis by Shelby Curtis on 09/13/201513Sign by: Shelby Curtis Name Value Range Interpretation Code Description Data Nataly rce(s) Supporting Document(s) ID Date Data Source [id number] 09/12/2020 02:00:00 PM EDT [facility] Name Value Range Interpretation Code Description Data Nataly rce(s) Supporting Document(s) SARS-CoV-2 (COVID-19) RNA [Presence] in Respiratory specimen by SELMA with probe detection Negative; No COVID-2 RNA detected by PCR. [facility] This lab was ordered by [facility] and reported by . ID Date Data Source [id number] 03/27/2020 01:04:[address] [facility]ital Procedure Performed By: [facility] [address] [place] [address] Director: Latanya Zamarripa MD Mixed huang: Mixed huang, probable contamination. Name Value Range Interpretation Code Description Data Nataly rce(s) Supporting Document(s) ID Date Data Source [id number] 04/29/2020 01:30:00 PM [facility] Name Value Range Interpretation Code Description Data Nataly rce(s) Supporting Document(s) Vitamin B12 result 541 Normal (applies to non-numer ic results) [facility] SEE SCANNED REPORT ID Date Data Source [id number] 04/01/2020 10:39:00 PM [facility] Name Value Range Interpretation Code Description Data Nataly rce(s) Supporting Document(s) Vitamin D 1,25 result 60 pg/mL 18-78 Normal (applies to non-nu meric results) [facility] ADDITIONAL INFORMATIO N This test was developed and its performance characteristics determined by [facility] in a manner consistent with CLIA requirements. This test has not been cleared or approved by the U.S. Food and Drug Administration. Test Performed by: [facility] [place] [address] Bulldozer Mechanic: Yves Enciso M.D. Ph.D.; CLIA# [id number] ID Date Data Source [id number] 03/26/2020 07:08:00 PM [facility] Name Value Range Interpretation Code Description Data Nataly rce(s) Supporting Document(s) Iron Level FE result 226 ug/dL 37-170 Son[facility] Test Performed By: [facility]oren Laboratory [address] [place] [address] Director: Malaika Zamarripa MD ID Date Data Source [id number] 03/26/2020 07:08:00 PM [facility] Name Value Range Interpretation Code Description Data Nataly rce(s) Supporting Document(s) Ferritin result 138 ng/mL 6.2-137.0 Soni [facility] Test Performed By: [facility] [address] [place] [address] Director: Malaika Zamarripa MD ID Date Data Source [id number] 03/26/2020 06:38:[address] [facility] Value Range Interpretation Code Description Data Nataly rce(s) Supporting Document(s) Ferritin 138 ng/mL 6.2-137.0 Above high normal [facility] [address] [place] [address] Director: Malaika Zamarripa MD ID Date Data Source [id number] 03/26/2020 06:38:[address] [facility] Value Range Interpretation Code Description Data Nataly rce(s) Supporting Document(s) Iron FE Level 226 ug/dL 37-170 Above high normal [facility] Test Performed By: [facility] [address] [place] [address] Director: Malaika Zamarripa MD ID Date Data Source [id number] 03/26/2020 06:38:[address] [facility] Value Range Interpretation Code Description Data Nataly rce(s) Supporting Document(s) Vitamin B12 541 pg/mL 193-986 Normal (applies to non-numeric resu lts) [facility] Test Performed By: [facility] [address] [place] [address] Director: Malaika Zamarripa MD ID Date Data Source [id number] 03/26/2020 05:53:00 AM [facility] Value Range Interpretation Code Description Data Nataly rce(s) Supporting Document(s) Bilirubin,Direct 0.05-0.20 Above high normal [facility] ID Date Data Source [id number] 03/26/2020 05:54:00 AM [facility] Value Range Interpretation Code Description Data Nataly rce(s) Supporting Document(s) Thyroid Stimulate Hormone TSH 0.358-3.74 Above high normal [facility] ID Date Data Source [id number] 03/26/2020 05:53:00 AM [facility] Value Range Interpretation Code Description Data Nataly rce(s) Supporting Document(s) Phosphorus 2.5-4.9 Normal (applies to non-numeric resul ts) [facility] ID Date Data Source [id number] 03/26/2020 05:53:00 AM EST [facility] Name Value Range Interpretation Code Description Data Nataly rce(s) Supporting Document(s) Sodium 135 mmol/L 136-145 Below low normal [facility] Potassium 3.5-5.1 Normal (applies to non-numeric resul ts) [facility] Chloride 95 mmol/L 98-107 Below low normal [facility] sp[facility] Carbon Dioxide CO2 21-32 Normal (applies to non-numer ic results) [facility] Anion Gap 5.0-16.0 Normal (applies to non-numeric resul ts) [facility] BUN 5 mg/dL 7-18 Below low normal [facility] Creatinine,Serum 0.7-1.2 Normal (applies to non-numeric results) [facility] GFR >60 Normal (applies to non-numeric results) [facility] Glucose Level 90 mg/dL 60-99 Normal (applies to non-numeric re sults) [facility] Reference range is only applicable when patient is fasting Note the following drug interference: Sulfasalazine Sulfapyridine Can see falsely depressed Can see falsely elevated result with up to 17% results with up to 11% decrease in measurement increase in measurement Recommend patients be collected for this test prior to administration of either drug. Calcium 8.5-10.1 Normal (applies to non-numeric resul ts) [facility] Bilirubin,Total 0.1-1.9 Normal (applies to non-numeric results) [facility] SGOT(AST) 64 U/L 15-37 Above high normal [facility] Note the following drug interference: Sulfasalazine Sulfapyridine Can see falsely depressed Can see falsely elevated result with up to 10% results with up to 10% decrease in measurement increase in measurement Recommend patients be collected for this test prior to administration of either drug. SGPT(ALT) 105 U/L 12-78 Above high normal [facility] Note the following drug interference: Sulfasalazine Sulfapyridine Can see falsely depressed Can see falsely elevated result with up to 29% results with up to 10% decrease in measurement increase in measurement Recommend patients be collected for this test prior to administration of either drug. Alkaline Phosphatase 106 U/L 38-126 Normal (applies to non-num sue results) [facility] can increase Alkaline Phosp le vels up to 2 times the normal adult value. Normal values for children and adolescents are 2 to 3 times the normal adult value. Total Protein 6.0-8.2 Normal (applies to non-numeric re sults) [facility] Albumin Level 3.4-5.0 Normal (applies to non-numeric re sults) [facility] ID Date Data Source [id number] 03/26/2020 05:53:00 AM EST [facility] Name Value Range Interpretation Code Description Data Nataly rce(s) Supporting Document(s) Magnesium 1.8-2.4 Normal (applies to non-numeric resul ts) [facility] ID Date Data Source [id number] 03/26/2020 02:50:00 PM EST [facility] Name Value Range Interpretation Code Description Data Nataly rce(s) Supporting Document(s) CPK result 237 U/L 26-192 Soni [facility] Test Performed By: [facility] [address] [place] [address] Director: Malaika Zamarripa MD ID Date Data Source [id number] 03/26/2020 02:50:00 PM EST [facility] Name Value Range Interpretation Code Description Data Nataly rce(s) Supporting Document(s) Syphilis Serology result Nonreactive Normal (applies to non-numeric results) [facility] Test Performed By: [facility] [address] [place] [address] Director: Malaika Zamarripa MD ID Date Data Source [id number] 03/26/2020 01:59:00 PM EST [facility] Value Range Interpretation Code Description Data Nataly rce(s) Supporting Document(s) Syphilis Serology Nonreactive Normal (applies to non-numer ic results) [facility] Test Performed By: [facility] [address] [place] [address] Director: Malaika Zamarripa MD ID Date Data Source [id number] 03/26/2020 01:56:00 PM EST [facility] Name Value Range Interpretation Code Description Data Nataly rce(s) Supporting Document(s) CPK 237 U/L 26-192 Above high normal [facility] Test Performed By: [facility] [address] [place] [address] Director: Malaika Zamarripa MD ID Date Data Source [id number] 03/26/2020 11:41:00 AM [facility] Name Value Range Interpretation Code Description Data Nataly rce(s) Supporting Document(s) Reticulocyte Count 0.50-1.81 Normal (applies to non-numer ic results) [facility] ID Date Data Source [id number] 03/26/2020 05:28:00 AM [facility] Name Value Range Interpretation Code Description Data Nataly rce(s) Supporting Document(s) Ethanol Less than 10.0 Normal (applies to non-numeric r esults) [facility] ID Date Data Source [id number] 03/26/2020 05:02:00 AM [facility] Name Value Range Interpretation Code Description Data Nataly rce(s) Supporting Document(s) White Blood Count 3.5-10.5 Normal (applies to non-numeri c results) [facility] Red Blood Count 3.90-5.00 Below low normal [facility] Hemoglobin 12.0-15.5 Below low normal [facility] Hematocrit 34.9-44.5 Below low normal [facility] Mean Corpuscular Volume 81.2-95.1 Normal (applies to non- numeric results) [facility] Mean Corpuscular Hgb 25.6-32.2 Normal (applies to non-num sue results) [facility] Mean Corpuscular Hgb Conc 32.0-36.0 Normal (applies to no n-numeric results) [facility] Red Cell Distribution Width 11.9-15.5 Above high normal [facility] Platelet Count 149 x10 3/uL 150-450 Below low normal [facility] Mean Platelet Volume 9.4-12.4 Below low normal [facility] Neutrophils% (Auto) 31.0-71.0 Normal (applies to non-nume gucci results) [facility] Lymphocytes% (Auto) 20.0-55.0 Normal (applies to non-nume gucci results) [facility] Monocytes% (Auto) 4.0-12.0 Normal (applies to non-numeri c results) [facility] Eosinophils% (Auto) 1.0-8.0 Normal (applies to non-nume gucci results) [facility] Basophils% (Auto) 0.0-2.0 Normal (applies to non-numeri c results) [facility] Immature Granulocytes% (Auto) 0.0-2.0 Normal (racquel lies to non-numeric results) [facility] Neutrophils# (Auto) 1.50-6.20 Normal (applies to non-nume gucci results) [facility] Lymphocytes# (Auto) 1.20-4.00 Below low normal [facility] Monocytes# (Auto) 0.00-0.90 Normal (applies to non-numeri c results) [facility] Eosinophils# (Auto) 0.00-0.50 Normal (applies to non-nume gucci results) [facility] Basophils# (Auto) 0.00-0.20 Normal (applies to non-numeri c results) [facility] Immature Granulocytes# (Auto) 0.00-7.00 No rmal (applies to non-numeric results) [facility] ID Date Data Source [id number] 04/02/2020 12:13:00 AM EST [facility] Name Value Range Interpretation Code Description Data Nataly rce(s) Supporting Document(s) Vitamin D 1,25 result 60 pg/mL 18-78 Normal (applies to non-nu meric results) [facility] ADDITIONAL INFORMATIO N This test was developed and its performance characteristics determined by [facility] in a manner consistent with CLIA requirements. This test has not been cleared or approved by the U.S. Food and Drug Administration. Test Performed by: [facility] [address] [place] [address] Bulldozer Mechanic: Yves Enciso M.D. Ph.D.; CLIA# [id number] ID Date Data Source [id number] 03/28/2020 05:44:00 PM [facility] Name Value Range Interpretation Code Description Data Nataly rce(s) Supporting Document(s) Chlamydia,Urine Negative Normal (applies to non-numeric results) [facility] Test Performed By: [facility] [address] [place] [address] Director: Malaika Zamarripa MD . GC Urine Negative Normal (applies to non-numeric resul ts) [facility] Test Performed By: [facility] [address] [place] [address] Director: Malaika Zamarripa MD . Methodology: Second generation nucleic acid amplification. ID Date Data Source [id number] 03/27/2020 11:31:00 AM [facility] Procedure Performed By: [facility] [address] [place] [address] Director: Latanya Zamarripa MD Name Value Range Interpretation Code Description Data Nataly rce(s) Supporting Document(s) Urine Culture Normal (applies to non-numeric re sults) [facility] ID Date Data Source [id number] 03/26/2020 06:59:00 AM [facility] Collected By: Nurse's Aide Initials: HR Collected By: Nurse's Aide Initials: HR Name Value Range Interpretation Code Description Data Nataly rce(s) Supporting Document(s) RBC,Urine None Seen [facility] WBC,Urine None Seen [facility] Casts,Urine None Seen Normal (applies to non-numeric resu lts) [facility] Epithelial Cells,Urine None - Few [facility] Squamous Cells,Urine None Seen [facility] Bacteria,Urine None Seen [facility] Mucus,Urine [facility] ID Date Data Source [id number] 03/26/2020 06:59:00 AM [facility] Collected By: Nurse's Aide Initials: HR Collected By: Nurse's Aide Initials: HR Name Value Range Interpretation Code Description Data [facility] rce(s) Supporting Document(s) Color,Urine Colorl-Dk Y Normal (applies to non-numeric res ults) [facility] Clarity,Urine Clear Normal (applies to non-numeric re sults) [facility] Specific [place],Urine 1.005-1.030 Normal (applies to non- numeric results) [facility] pH,Urine 5.0-8.0 Normal (applies to non-numeric resul ts) [facility] Protein,Urine Negative [facility]oren Glucose,Urine Negative Normal (applies to non-numeric re sults) [facility] Ketones,Urine Negative Normal (applies to non-numeric re sults) [facility] Blood,Urine Negative Normal (applies to non-numeric resu lts) [facility] Bilirubin,Urine Negative Normal (applies to non-numeric results) [facility] Urobilinogen,Urine 0.2-1.0 Normal (applies to non-numer ic results) [facility] Leukocyte Esterase,Urine Negative [facility] Nitrite,Urine Negative Normal (applies to non-numeric re sults) [facility] ID Date Data Source [id number] 03/26/2020 06:30:00 AM [facility] Name Value Range Interpretation Code Description Data [facility] rce(s) Supporting Document(s) UDS Benzodiazepines Screen Negative [facility] UDS Cocaine Screen Negative Normal (applies to non-numer ic results) [facility] UDS Ampetamine Screen Negative Normal (applies to non-nu meric results) [facility] UDS Cannabinoids Screen Negative Normal (applies to non- numeric results) [facility] UDS Opiates Screen Negative Normal (applies to non-numer ic results) [facility] UDS Barbiturates Screen Negative Normal (applies to non- numeric results) [facility] Threshold Levels Benzodiazepine 200 ng/mL Cocaine 300 ng/mL Amphetamines 1000 ng/mL Cannabinoids (THC) 50 ng/mL Opiates 300 ng/mL Barbiturates 200 ng/mL All positive findings are presumptive and unconfirmed. Confirmation of positive results are performed only at request of provider. Unconfirmed results must not be used for non-medical purposes (i.e. preemployment and legal purposes) ID Date Data Source [id number] 03/28/2020 06:20:00 PM EST [facility] Name Value Range Interpretation Code Description Data Natayl rce(s) Supporting Document(s) Chlamydia,Urine result Negative Normal (applies to non-n umeric results) [facility] Test Performed By: [facility] [address] [place] [address] Director: Malaika Zamarripa MD . GC Urine result Negative Normal (applies to non-numeric results) [facility] Test Performed By: [facility] [address] [place] [address] Director: Malaika Zamarripa MD . Methodology: Second generation nucleic acid amplification. ID Date Data Source [id number] 03/26/2020 01:10:00 AM EST [facility] Name Value Range Interpretation Code Description Data Nataly rce(s) Supporting Document(s) SARS coronavirus 2 RNA [Presence] in Res piratory specimen by SELMA with probe detection NEGATIVE [facility] This lab was ordered by [facility] a nd reported by [facility]. ID Date Data Source [id number] 03/05/2020 03:31:00 PM EST [facility] Name Value Range Interpretation Code Description Data Nataly rce(s) Supporting Document(s) SARS coronavirus 2 RNA [Presence] in Res piratory specimen by SELMA with probe detection [facility] This lab was ordered by [facility] a nd reported by [facility]. ID Date Data Source [id number] 02/28/2020 07:24:00 AM EST [facility] Name Value Range Interpretation Code Description Data Nataly rce(s) Supporting Document(s) SARS coronavirus 2 RNA [Presence] in Res piratory specimen by SELMA with probe detection [facility] This lab was ordered by [facility] a nd reported by [facility]. Procedure Social History Code Duration Value Status Description Data Source(s ) Smoking 09/30/2020 12:00:00 AM EDT Current Smoker completed Curre nt Smoker eCW1 ([facility]) Smoking 09/30/2020 12:00:00 AM EDT Current Smoker completed Curre nt Smoker eCW1 ([facility]) Smoking 09/30/2020 12:00:00 AM EDT Current Smoker completed Curre nt Smoker eCW1 ([facility]) Smoking 09/30/2020 12:00:00 AM EDT Current Smoker completed Curre nt Smoker eCW1 ([facility]) Smoking 09/30/2020 12:00:00 AM EDT Current Smoker completed Curre nt Smoker eCW1 ([facility]) Smoking 09/30/2020 12:00:00 AM EDT Current Smoker completed Curre nt Smoker eCW1 ([facility]) Smoking 07/03/2020 12:00:00 AM EDT Current Smoker completed Curre nt Smoker eCW1 ([facility]) Smoking 07/03/2020 12:00:00 AM EDT Current Smoker completed Curre nt Smoker eCW1 ([facility]) Smoking 07/03/2020 12:00:00 AM EDT Current Smoker completed Curre nt Smoker eCW1 ([facility]) Smoking 07/03/2020 12:00:00 AM EDT Current Smoker completed Curre nt Smoker eCW1 ([facility]) Smoking 05/30/2020 12:00:00 AM EST Current Smoker completed Curre nt Smoker eCW1 ([facility]) Smoking 04/21/2020 12:00:00 AM EST Current Smoker completed Curre nt Smoker eCW1 ([facility]) Smoking 04/08/2020 12:00:00 AM EST Current Smoker completed Curre nt Smoker eCW1 ([facility]) Smoking 04/08/2020 12:00:00 AM EST Current Smoker completed Curre nt Smoker eCW1 ([facility]) Smoking 04/08/2020 12:00:00 AM EST Current Smoker completed Curre nt Smoker eCW1 ([facility]) Vital Signs ID Date Data Source [id number] Name Value Range Interpretation Code Description Data Source(s) Body temperature 97.5 [degF] 97.5 [degF] MEDENT ([facility]) Body height 65.50 [in_i] 65.50 [in_i] MEDENT ([facility]) 5'5.50" Body weight 142.12 [lb_av] 142.12 [lb_av] MEDEN T ([facility] ) Body mass index (BMI) [Ratio] 23.3 kg/m2 23.3 k g/m2 MEDENT ([facility] ) Body weight 143 [lb_av] 143 [lb_av] eCW1 ([facility]) Body height 66 [in_i] 66 [in_i] eCW1 ([facility]) Body mass index (BMI) [Ratio] 23.08 kg/m2 23.08 kg/m2 eCW1 ([facility]) Heart rate 105 /min 105 /min eCW1 ([facility]) Respiratory rate 18 /min 18 /min eCW1 ([facility]) Body temperature 97.2 [degF] 97.2 [degF] eCW1 ( [facility]) Systolic blood pressure 110 mm[Hg] 110 mm[Hg] e CW1 ([facility]) Diastolic blood pressure 70 mm[Hg] 70 mm[Hg] eCW1 ([facility]) Body weight 158 [lb_av] 158 [lb_av] eCW1 ([facility]) Body height 66 [in_i] 66 [in_i] eCW1 ([facility]) Body mass index (BMI) [Ratio] 25.50 kg/m2 25.50 kg/m2 W1 ([facility]) Heart rate /min eCW1 ([facility]) Respiratory rate 18 /min 18 /min eCW1 ([facility]) Body temperature 98.7 [degF] 98.7 [degF] eCW1 ( [facility]) Systolic blood pressure 126 mm[Hg] 126 mm[Hg] e CW1 ([facility]) Diastolic blood pressure 78 mm[Hg] 78 mm[Hg] eCW1 ([facility]) Body weight 154 [lb_av] 154 [lb_av] eCW1 ([facility]) Body height 66 [in_i] 66 [in_i] eCW1 ([facility]) Body mass index (BMI) [Ratio] 24.85 kg/m2 24.85 kg/m2 eCW1 ([facility]) Heart rate 107 /min 107 /min eCW1 ([facility]) Respiratory rate 18 /min 18 /min eCW1 ([facility]) Body temperature 98.4 [degF] 98.4 [degF] eCW1 ( [facility]) Systolic blood pressure 96 mm[Hg] 96 mm[Hg] e CW1 ([facility]) Diastolic blood pressure 66 mm[Hg] 66 mm[Hg] eCW1 ([facility]) Body weight 153 [lb_av] 153 [lb_av] eCW1 ([facility]) Body height 66 [in_i] 66 [in_i] eCW1 ([facility]) Body mass index (BMI) [Ratio] 24.69 kg/m2 24.69 kg/m2 eCW1 ([facility]) Heart rate 104 /min 104 /min eCW1 ([facility]) Respiratory rate 18 /min 18 /min eCW1 ([facility]) Body temperature 97.0 [degF] 97.0 [degF] eCW1 ( [facility]) Systolic blood pressure 104 mm[Hg] 104 mm[Hg] e CW1 ([facility]) Diastolic blood pressure 62 mm[Hg] 62 mm[Hg] eCW1 ([facility]) ID Date Data Source [id number] 04/01/2020 10:39:00 PM EST [facility] Name Value Range Interpretation Code Description Data Source(s) Weight (Calculated Kilograms) 63.50 63.50 [facility] Height (Calculated Centimeters) 167.[address] [facility] Body Mass Index (BMI) 22.6 22.6 [facility] ID Date Data Source [id number] 04/29/2020 01:30:00 PM EST [facility] Name Value Range Interpretation Code Description Data Source(s) Weight Measurement Method 8 8 [facility] Weight (Calculated Kilograms) 63.50 63.50 [facility] Weight 2240 2240 [facility] pital Temperature Source 7 7 [facility] Temperature 97.9 97.9 [facility] spital Respiratory Effort 1 1 [facility] Respiratory Rate 20 20 [facility] Pulse Assessment Method 4 4 [facility] Pulse Rate 112 112 [facility] pital Height (Calculated Centimeters) 167.64 167. 64 [facility] 66 66 [facility] 110/80 110/80 [facility] Body Mass Index (BMI) 22.6 22.6 [facility] Weight Measurement Method 8 8 [facility] Weight (Calculated Kilograms) 63.50 63.50 [facility] Weight 2240 2240 [facility] pital Temperature Source 7 7 [facility] Temperature 97.9 97.9 [facility] spital Respiratory Effort 1 1 [facility] Respiratory Rate 20 20 [facility] Pulse Assessment Method 4 4 [facility] Pulse Rate 112 112 [facility] pital Height (Calculated Centimeters) 167.64 167. 64 [facility] 66 66 [facility] 110/80 110/80 [facility] Body Mass Index (BMI) 22.6 226 [facility] Weight Measurement Method 8 8 [facility] Weight (Calculated Kilograms) 63.50 63.50 [facility] Weight 2240 2240 [facility] pital Temperature Source 7 7 [facility] Temperature 97.9 97.9 [facility] spital Respiratory Effort 1 1 [facility] Respiratory Rate 20 20 [facility] Pulse Assessment Method 4 4 [facility] Pulse Rate 112 112 [facility] pital Height (Calculated Centimeters) 167.64 167. 64 [facility] Height 66 66 [facility] pital Blood Pressure 110/80 110/80 [facility] Body Mass Index (BMI) 22.6 22.6 [facility] Weight Measurement Method 8 8 [facility] Weight (Calculated Kilograms) 63.50 63.50 [facility] Weight 2240 2240 [facility] pital Temperature Source 7 7 [facility] Temperature 97.2 97.2 [facility] spital Respiratory Effort 1 1 [facility] Respiratory Rate 14 14 [facility] Pulse Assessment Method 4 4 [facility] Pulse Rate 85 85 [facility] pital Height (Calculated Centimeters) 167.64 167. 64 [facility] Height 66 66 [facility] pital Blood Pressure 107/75 107/75 [facility] Body Mass Index (BMI) 22.6 22.6 [facility] Weight (Calculated Kilograms) 63.50 63.50 [facility] Height (Calculated Centimeters) 167.64 167. 64 [facility] Body Mass Index (BMI) 22.[address] ID Date Data Source [id number] 12/25/2019 08:28:00 AM EDT [facility] spital Name Value Range Interpretation Code Description Data Source(s) Weight Measurement Method 8 8 [facility] Weight (Calculated Kilograms) 63.50 63.50 [facility] Weight 2240 2240 [facility] pital Temperature Source 7 7 [facility] Temperature 98.8 98.8 [facility] spital Respiratory Effort 1 1 [facility] Respiratory Rate 18 18 [facility] Pulse Assessment Method 4 4 [facility] Pulse Rate 86 86 [facility] pital Height (Calculated Centimeters) 167.64 167. 64 [facility] Height 66 66 [facility] pital Blood Pressure 121/86 121/86 [facility] Body Mass Index (BMI) 22.6 22.6 [facility] Weight Measurement Method 8 8 [facility] Weight (Calculated Kilograms) 63.50 63.50 [facility] Weight 2240 2240 [facility] pital Temperature Source 1 1 [facility] Temperature 98.7 98.7 [facility] spital Respiratory Effort 1 1 [facility] Respiratory Rate 20 20 [facility] Pulse Assessment Method 4 4 [facility] Pulse Rate 114 114 [facility] pital Height (Calculated Centimeters) 167.64 167. 64 [facility] Height 66 66 [facility] pital Blood Pressure 131/96 131/96 [facility] Body Mass Index (BMI) 22.[address] [place] [address] Weight Measurement Method 8 8 [facility] Weight (Calculated Kilograms) 63.50 63.50 [facility] Weight 2240 2240 [facility] pital Temperature Source 1 1 [facility] Temperature 98.7 98.7 [facility] spital Respiratory Effort 1 1 [facility] Respiratory Rate 20 20 [facility] Pulse Assessment Method 4 4 [facility] Pulse Rate 114 114 [facility] pital Height (Calculated Centimeters) 167.64 167. 64 [facility] Height 66 66 [facility] pital Blood Pressure 131/96 131/96 [facility] Body Mass Index (BMI) 22.6 22.6 [facility] Weight (Calculated Kilograms) 63.[address] [place] [address] Height (Calculated Centimeters) 167.64 167. 64 [facility] Body Mass Index (BMI) 22.6 22.6 [facility] Weight (Calculated Kilograms) 63.[address] Height (Calculated Centimeters) 167.64 167. 64 [facility] Body Mass Index (BMI) 22.6 226 [facility] Patient Treatment Plan of Care Planned Activity Planned Date Details Description Data Source (s) Acamprosate calcium 333 MG Delayed Release Oral Tablet 09/23/2020 12:00:00 AM EDT eCW1 ([facility]) Acamprosate calcium 333 MG Delayed Release [facility] 333 MG Delayed Release Oral Tablet 09/13/2020 12:00:00 AM EDT [facility] quetiapine 25 MG Oral Tablet [Seroquel] 04/08/2020 12:00:00 AM EST eCW1 ([facility]) Naltrexone 112 MG/ML Injectable Suspension [Vivitrol] 04/08/2020 12:00:00 AM EST eCW1 ([facility]) Naltrexone 112 MG/ML Injectable Suspension [Vivitrol] 04/08/2020 12:00:00 AM EST eCW1 ([facility]) quetiapine 25 MG Oral Tablet [Seroquel] 04/08/2020 12:00:00 AM EST eCW1 ([facility]) Naltrexone 112 MG/ML Injectable Suspension [Vivitrol] 04/08/2020 12:00:00 AM EST eCW1 ([facility]) Naltrexone 112 MG/ML Injectable Suspension [Vivitrol] 04/08/2020 12:00:00 AM EST eCW1 ([facility]) quetiapine 25 MG Oral Tablet [Seroquel] 04/08/2020 12:00:00 AM EST eCW1 ([facility]) Naltrexone 112 MG/ML Injectable Suspension [Vivitrol] 04/08/2020 12:00:00 AM EST eCW1 ([facility]) Naltrexone 112 MG/ML Injectable Suspension [Vivitrol] 04/08/2020 12:00:00 AM EST eCW1 ([facility])
[2021-02-20 00:53] LABS: HEMATOCRIT 37.1 % (36.0-47.0); HEMOGLOBIN 11.8 g/dl (12.0-15.5); MEAN CORPUSCULAR HEMOGLOBIN 27.4 pg (27.0-33.0); MEAN CORPUSCULAR HGB CONC 31.8 g/dl (32.0-36.5); MEAN CORPUSCULAR VOLUME 86.3 fl (80.0-96.0); PLATELET COUNT, AUTOMATED 268 10^3/uL (150-450); WHITE BLOOD COUNT 3.7 10^3/uL (4.0-10.0)
[2021-02-20] MEDS ORDERED: NS 1,000 ML IV ONE (01:05)
[2021-02-20 01:26] LABS: BLOOD UREA NITROGEN 2 MG/DL (7-18); CALCIUM LEVEL 8.2 MG/DL (8.5-10.1); CARBON DIOXIDE LEVEL 24 MEQ/L (21-32); CHLORIDE LEVEL 109 MEQ/L (98-107); CREATININE FOR GFR 0.76 MG/DL (0.55-1.30); ETHYL ALCOHOL (ETHANOL) 0.422 % (0.000-0.010); GLOMERULAR FILTRATION RATE > 60.0 (>60); GLUCOSE, FASTING 167 MG/DL (70-100); POTASSIUM SERUM 3.4 MEQ/L (3.5-5.1); SODIUM LEVEL 144 MEQ/L (136-145)
--- OUTSIDE RECORDS SUMMARY | 2021-02-20 03:15 | CCD ---
Author Author [facility] Organization [facility] Address Unknown Phone Unavailable Care Team Providers Care Time Cycle Operator Name Role Phone Salena AQUINO Unavailable Unavailable ZEGILNicholeEW PARKING MANAGER Unavailable Unavailable ZEGIL D GEORGE PARKING MANAGER Unavailable Unavailable ZEGIL, D GEORGE PARKING MANAGER Unavailable Unavailable Jenni Spring MD Unavailable Unavailable Jenni Spring MD Unavailable Unavailable Jenni Spring MD Unavailable Unavailable Jenni Spring MD Unavailable Unavailable Con Penaloza MD Unavailable Unavailable Cno Penaloza MD Unavailable Unavailable Con Penaloza MD [...] CIERRA ESTRELLA Unavailable Unavailable Siebeckiekiewycz, L Dianne MAIL EXAMINER Unavailable Unavailable Sienkiewycz, L Dianne MAIL EXAMINER Unavailable Unavailable Sienkiewycz, L Dianne MAIL EXAMINER Unavailable Unavailable Sienkiewycz, L Dianne MAIL EXAMINER Unavailable Unavailable Sienkiewycz, L Dianne MAIL EXAMINER Unavailable Unavailable Sienkiewycz, L Dianne MAIL EXAMINER Unavailable Unavailable Sienkiewycz, L Dianne MAIL EXAMINER Unavailable Unavailable Re-disclosure Warning The records that [...] is protected by Article 27-F of the [facility] Public Health law. If you continue you may have access to information: Regarding HIV / AIDS; Provided by facilities licensed or operated by the [facility] Office of Mental Health; or Provided by the [facility] Office for People With Developmental Disabilities. If such information is present, then the following [facility] mandated warning applies: This information has [...] law may result in a fine or prison sentence or both. A general authorization for the release of medical or other information is NOT sufficient authorization for further disc losure. Allergies and Adverse Reactions Type Description Substance Reaction Status Data Source(s ) Propensity to adverse reactions Propensity to adverse reacti ons No Known Drug Allergies [facility] Encounters Encounter Providers Location Date Indications Data Source(s ) Outpatient [facility] [address] 02/11/2021 12:00:00 AM EST [facility] Unknown [address] [facility] [address] 12/19/2020 12:00:00 AM EDT eCW1 [facility] [place] [address] [facility] [address] 12/15/2020 12:00:00 AM EDT eCW1 [facility] Outpatient [address] [facility] [address] 10/24/2020 12:00:00 AM EDT eCW1 [facility]) Outpatient Attender: Jason SAINZ Physical Therapy 02:45:00 PM EDT MEDENT ([facility]) Outpatient [address] [facility] [address] 09/30/2020 12:00:00 AM EDT [facility] [address] [facility] [address] 09/30/2020 12:00:00 AM EDT eCW1 [facility] [place] [address] [facility] [address] 09/16/2020 12:00:00 AM EDT eCW1 [facility]) Inpatient Attender: Cookie Spring MDAdmitter: Cookie navarro MD SURG-MED 09/12/2020 04:20:00 PM EDT - 09/13/2020 05:30:00 PM EDT [facility]. Patient discharged. Inpatient Attender: Cookie Spring MDAdmitter: Cookie navarro MD SURG-MED 09/12/2020 04:20:00 PM EDT [facility]. V Attender: Cookie Spring MDAdmitter: Cookie navarro MD SURG-MED 09/12/2020 02:55:00 PM EDT [facility]. Patient admitted. Outpatient Attender: Dianne Cesar NP SURG-NPLAB 09/12/2020 02:01:00 PM EDT [facility] Unknown [address] [facility] [address] 07/15/2020 12:00:00 AM EDT eCW1 ([facility]) Outpatient [address] [facility] [address] 07/15/2020 12:00:00 AM EDT eCW1 ([facility]) Unknown [address] [facility] [address] 07/08/2020 12:00:00 AM EDT eCW1 ([facility]) Outpatient [address] [facility] [address] 05/30/2020 12:00:00 AM EST eCW1 ([facility]) Outpatient [address] [facility] [address] 04/21/2020 12:00:00 AM EST eCW1 ([facility]) Outpatient [address] [facility] [address] 04/08/2020 12:00:00 AM EST eCW1 ([facility]) Unknown [address] [facility] [address] 04/08/2020 12:00:00 AM EST eCW1 ([facility]) Unknown [address] [facility] [address] 04/08/2020 12:00:00 AM EST eCW1 ([facility]) Outpatient Attender: UNKNOWN CPSCAORT-LABEJN 03/26/2020 09:45:00 AM [facility] Inpatient Attender: Con Penaloza MDAdmitter: Con tyson MD [facility] 03/26/2020 04:22:00 AM EST - 03/29/2020 11:20:00 AM EST F1020 [facility] 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 Outpatient Attender: RAYRAY AQUINO 01/08/2020 06:00:00 PM [facility] Outpatient Attender: RAYRAY AQUINO 12/24/2019 04:00:00 PM E DT [facility] Outpatient Attender: CIERRA ESTRELLA 12/24/2019 02:00:00 PM ED T [facility] Emergency Attender: GEORGERICK WONG ED-ED 03/2019 06:06:00 PM EDT - 11/20/2019 10:45:00 PM EDT [facility] Patient discharged. Immunizations Vaccine Date Status Description Data Source(s) 10/24/2020 09:51:00 AM EDT completed e CW1 ([facility]) 10/24/2020 09:51:00 AM EDT completed e CW1 ([facility]) 07/15/2020 09:52:00 AM EDT completed e CW1 ([facility]) 07/15/2020 09:52:00 AM EDT completed e CW1 ([facility]) 07/15/2020 09:52:00 AM EDT completed e CW1 ([facility]) 07/15/2020 09:52:00 AM EDT completed e CW1 ([facility]) 07/15/2020 09:52:00 AM EDT completed e CW1 ([facility]) 07/15/2020 09:52:00 AM EDT completed e CW1 ([facility]) 07/15/2020 09:52:00 AM EDT completed e CW1 ([facility]) 07/15/2020 09:52:00 AM EDT completed e CW1 ([facility]) Medications Medication Brand Name Start Date [...] 1.0 {tablet} active Disulfiram 250 MG eCW1 ([facility]) Disulfiram 250 MG Oral Tablet Disulfiram 250 MG 12/12/2020 12:00:00 AM EDT 1.0 {tablet} active Disulfiram 250 MG eCW1 ([facility]) Disulfiram 250 MG Oral Tablet Disulfiram 250 MG 12/12/2020 12:00:00 AM EDT 1.0 {tablet} active Disulfiram 250 MG eCW1 ([facility]) 250 mg 09/30/2020 12:00:00 AM EDT [...] ts} active Acamprosate Calcium 333 MG eCW1 ([facility]) Acamprosate calcium 333 MG Delayed Relea se Oral Tablet Acamprosate Calcium 333 MG Acamprosate Calcium 333 MG 09/23/2020 12:00:00 AM EDT 2.0 {table ts} active Acamprosate Calcium 333 MG eCW1 ([facility]) Acamprosate calcium 333 MG Delayed Relea se Oral Tablet Acamprosate Calcium 333 MG Acamprosate Calcium 333 MG 09/23/2020 12:00:00 AM EDT 2.0 {table ts} active Acamprosate Calcium 333 MG eCW1 ([facility]) Acamprosate calcium 333 MG Delayed Relea se Oral Tablet Acamprosate Calcium 333 MG Acamprosate Calcium 333 MG 09/23/2020 12:00:00 AM EDT 2.0 {table ts} active Acamprosate Calcium 333 MG eCW1 ([facility]) Acamprosate calcium 333 MG Delayed Relea se Oral Tablet Acamprosate Calcium 333 MG Acamprosate Calcium 333 MG 09/23/2020 12:00:00 AM EDT 2.0 {table ts} active Acamprosate Calcium 333 MG eCW1 ([facility]) Acamprosate calcium 333 MG Delayed Relea se Oral Tablet Acamprosate Calcium 333 MG Acamprosate Calcium 333 MG 09/23/2020 12:00:00 AM EDT 2.0 {table ts} active Acamprosate Calcium 333 MG eCW1 ([facility]) Acamprosate calcium 333 MG Delayed Relea se Oral Tablet Acamprosate Calcium 333 MG Acamprosate Calcium 333 MG 09/23/2020 12:00:00 AM EDT 2.0 {table ts} active Acamprosate Calcium 333 MG eCW1 ([facility]) Acamprosate calcium 333 MG Delayed Relea se Oral Tablet Acamprosate Calcium 333 Mg Tablet.dr Dick, 666 Mg Oral Acamprosate Calcium 333 Mg Tablet. Tablet., 666 Mg Oral 09/13/2020 12:00:00 AM EDT 666 completed Three Times a Day [facility] Acamprosate calcium 333 MG Delayed Relea se Oral Tablet Acamprosate Calcium 333 MG TABLET. Acamprosate Calcium 333 MG TABLET. 09/13/2020 12:00:00 AM EDT 666 completed Three Times a Day [facility] 25 mg 09/08/2020 12:00:00 AM [...] 1.0 {tablet_at_bedtime} active SEROquel 25 MG eCW1 ([facility]) Naltrexone 112 MG/ML Injectable Suspension [Vivitrol] Vivitrol 380 MG Vivitrol 380 MG 04/08/2020 12:00:00 AM EST 4.0 {ml} active Vivitrol 380 MG eCW1 ([facility]) Naltrexone 112 MG/ML Injectable Suspension [Vivitrol] Vivitrol 380 MG Vivitrol 380 MG 04/08/2020 12:00:00 AM EST 4.0 {ml} active Vivitrol 380 MG eCW1 ([facility]) Naltrexone 112 MG/ML Injectable Suspension [Vivitrol] Vivitrol 380 MG Vivitrol 380 MG 04/08/2020 12:00:00 AM EST 4.0 {ml} active Vivitrol 380 MG eCW1 ([facility]) Naltrexone 112 MG/ML Injectable Suspension [Vivitrol] Vivitrol 380 MG Vivitrol 380 MG 04/08/2020 12:00:00 AM EST 4.0 {ml} active Vivitrol 380 MG eCW1 ([facility]) Naltrexone 112 MG/ML Injectable Suspension [Vivitrol] Vivitrol 380 MG Vivitrol 380 MG 04/08/2020 12:00:00 AM EST 4.0 {ml} active Vivitrol 380 MG eCW1 ([facility]) Naltrexone 112 MG/ML Injectable Suspension [Vivitrol] Vivitrol 380 MG Vivitrol 380 MG 04/08/2020 12:00:00 AM EST 4.0 {ml} active Vivitrol 380 MG eCW1 ([facility]) Naltrexone 112 MG/ML Injectable Suspension [Vivitrol] Vivitrol 380 MG Vivitrol 380 MG 04/08/2020 12:00:00 AM EST 4.0 {ml} active Vivitrol 380 MG eCW1 ([facility]) Naltrexone 112 MG/ML Injectable Suspension [Vivitrol] Vivitrol 380 MG Vivitrol 380 MG 04/08/2020 12:00:00 AM EST 4.0 {ml} active Vivitrol 380 MG eCW1 ([facility]) Naltrexone 112 MG/ML Injectable Suspension [Vivitrol] Vivitrol 380 MG Vivitrol 380 MG 04/08/2020 12:00:00 AM EST 4.0 {ml} active Vivitrol 380 MG eCW1 ([facility]) Naltrexone 112 MG/ML Injectable Suspension [Vivitrol] Vivitrol 380 MG Vivitrol 380 MG 04/08/2020 12:00:00 AM EST 4.0 {ml} active Vivitrol 380 MG eCW1 ([facility]) Naltrexone 112 MG/ML Injectable Suspension [Vivitrol] Vivitrol 380 MG Vivitrol 380 MG 04/08/2020 12:00:00 AM EST 4.0 {ml} active Vivitrol 380 MG eCW1 ([facility]) Naltrexone 112 MG/ML Injectable Suspension [Vivitrol] Vivitrol 380 MG Vivitrol 380 MG 04/08/2020 12:00:00 AM EST 4.0 {ml} active Vivitrol 380 MG eCW1 ([facility]) Naltrexone 112 MG/ML Injectable Suspension [Vivitrol] Vivitrol 380 MG Vivitrol 380 MG 04/08/2020 12:00:00 AM EST 4.0 {ml} active Vivitrol 380 MG eCW1 ([facility]) Naltrexone 112 MG/ML Injectable Suspension [Vivitrol] Vivitrol 380 MG Vivitrol 380 MG 04/08/2020 12:00:00 AM EST 4.0 {ml} active Vivitrol 380 MG eCW1 ([facility]) quetiapine 25 MG Oral Tablet [Seroquel] SEROquel 25 MG SEROq uel 25 MG 04/08/2020 12:00:00 AM EST 1.0 {tablet_at_bedtime} active SEROquel 25 MG eCW1 ([facility]) Naltrexone 112 MG/ML Injectable Suspension [Vivitrol] Vivitrol 380 MG Vivitrol 380 MG 04/08/2020 12:00:00 AM EST 4.0 {ml} active Vivitrol 380 MG eCW1 ([facility]) Naltrexone 112 MG/ML Injectable Suspension [Vivitrol] Vivitrol 380 MG Vivitrol 380 MG 04/08/2020 12:00:00 AM EST 4.0 {ml} active Vivitrol 380 MG eCW1 ([facility]) Naltrexone 112 MG/ML Injectable Suspension [Vivitrol] Vivitrol 380 MG Vivitrol 380 MG 04/08/2020 12:00:00 AM EST 4.0 {ml} active Vivitrol 380 MG eCW1 ([facility]) quetiapine 25 MG Oral Tablet [Seroquel] SEROquel 25 MG SEROq uel 25 MG 04/08/2020 12:00:00 AM EST 1.0 {tablet_at_bedtime} active SEROquel 25 MG eCW1 ([facility]) Naltrexone 112 MG/ML Injectable Suspension [Vivitrol] Vivitrol 380 MG Vivitrol 380 MG 04/08/2020 12:00:00 AM EST 4.0 {ml} active Vivitrol 380 MG eCW1 ([facility]) Insurance Providers Payer name Policy type / Coverage type Policy ID Covered democrat ID Covered democrat's relationship to cardoso Policy Cardoso Plan Information [facility] [id number] Unemploye d [id number] [facility] [id number] S [id number] [facility] [id number] Unemploye d [id number] [facility] COMMUNITY PLAN [id number] SP [id number] SELF PAY SP [facility]) O [id number] S [id number] [facility] [place] [id number] S [id number] [facility] MEDICAID [id number] S [id number] SELF PAY ONLY [id number] SP [id number] MEDICAID [id number] [facility] MCDHMO NO CARDS SP NO CARDS [facility] [id number] Unemploye d [id number] SELF PAY Unemployed [facility] [id number] SP [id number] [facility] [id number] S [id number] [facility] [id number] S [id number] SELF PAY ONLY [id number] SP [id number] MEDICAID [id number] SP [id number] [facility] [id number] [facility] [id number] [facility] [id number] [facility] [id number] ANSI-Medicaid [id number] ANSI-Medicaid [id number] [employer] COMMUNITY PLAN [facility] [id number] SP [id number] [facility] [id number] SP [id number] [facility] [id number] SP [id number] ANSI-Medicaid [id number] ANSI-Medicaid [id number] MEDICAID [id number] SP [id number] MEDICAID [id number] SP [id number] [facility]) O [id number] S [id number] [facility] [id number] SP [id number] [employer] [id number] SP [id number] [employer] O [id number] S [id number] [employer] [id number] SP [id number] MEDICAID - CLINIC [id number] [employer] COMMUNITY PLAN [facility] [id number] SP [id number] [facility] [id number] SP [id number] [facility] [id number] SP [id number] Problems, Conditions, and Diagnoses Code Display Name Description Problem Type Effective Dates Data Source(s) Y90.0 Blood alcohol level of less than 20 mg/1 00 ml BLOOD ALCOHOL LEVEL OF LESS THAN 20 MG/100 ML Diagnosis 03/26/2020 04:22:00 AM [facility] Z91.81 History of falling HISTORY OF FALLING Diagnosis 08/2020 04:22:00 AM [facility] M25.531 Pain in right wrist PAIN IN RIGHT WRIST Diagnosis 0 03/26/2020 04:22:00 AM [facility] Z53.29 Procedure and treatment not carried out because of patient's decision for other reasons PROC/TRTMT NOT CRD OUT BEC PT DECISION FOR OTH REASONS Diagn osis 03/26/2020 04:22:00 AM [facility] F34.1 Dysthymic disorder DYSTHYMIC DISORDER Diagnosis 08/2020 04:22:00 AM [facility] F17.210 Nicotine dependence, cigarettes, uncompl icated NICOTINE DEPENDENCE, CIGARETTES, UNCOMPLICATED Diagnosis 03/26/2020 04:22:00 AM [facility] F10.230 Alcohol dependence with withdrawal, unco mplicated ALCOHOL DEPENDENCE WITH WITHDRAWAL, UNCOMPLICATED Diagnosis 03/26/2020 04:22:00 AM [facility] F10.11 ALCOHOL ABUSE, IN REMISSION ALCOHOL ABUSE, IN REMISSIO N Diagnosis 12/24/2019 02:00:00 PM [facility] F41.9 Anxiety disorder, unspecified ANXIETY DISORDER, UNSPEC IFIED Diagnosis 12/24/2019 02:00:00 PM [facility] F10.21 Alcohol dependence, in remission ALCOHOL DEPENDE NCE, IN REMISSION Diagnosis 12/24/2019 02:00:00 PM [facility] F10.10 [id number] Alcohol use disorder, mild, abuse Problem 09/23/2020 12:00:00 AM [place] [address] ([facility]) F33.2 [id number] Severe episode of re current major depressive disorder, without psychotic features Problem 04/21/2020 12:00:00 AM [place] [address] ([facility]) F41.8 [id number] Depression with anxiety Problem 04/21/2020 1 2:00:00 AM [place] [address] ([facility]) F51.04 [id number] Psychophysiological insomnia Problem 04/08/2020 12:00:00 AM [place] [address] ([facility]) F17.200 [id number] Nicotine dependence with current use Prob darling 04/08/2020 12:00:00 AM EST eCW1 ([facility]) Surgeries/Procedures Procedure Description Date Indications Data Source(s) Injection, medroxyprogesterone acetate for contraceptive use , 150 mg 02/11/2021 12:00:00 AM EST eCW1 ([facility]) Injection, medroxyprogesterone acetate for contraceptive use , 150 mg 10/24/2020 12:00:00 AM EDT eCW1 ([facility]) OFFICE OUTPATIENT NEW 45 MINUTES 10/01/2020 12:00:00 A M EDT [facility] ([facility] ) CLTX PHLNGL FX PROX/MIDDLE PX/F/T W/O MANJ EA 10/02/19 12:00:00 AM EDT MED[facility] ([facility] ) Detoxification Services for Substance Abuse Treatment DETOXIFICATION SERVICES FOR SUBSTANCE ABUSE TREATMENT 09/12/2020 12:00:00 AM EDT [facility]. Naltrexone 380mg (Pt Supplied) 07/15/2020 12:00:00 AM EDT eCW1 ([facility]) Injection, medroxyprogesterone acetate for contraceptive use , 150 mg 07/15/2020 12:00:00 AM EDT eCW1 ([facility]) Naltrexone 380mg (Pt Supplied) 05/30/2020 12:00:00 AM EST eCW1 ([facility]) URINE TEST 04/21/2020 12:00:00 AM EST eCW1 ([facility]) Naltrexone 380mg 04/21/2020 12:00:00 AM EST eCW1 ([facility]) Injection, medroxyprogesterone acetate for contraceptive use , 150 mg 04/21/2020 12:00:00 AM EST eCW1 ([facility]) ECG ROUTINE ECG W/LEAST 12 LDS W/I&R 04/21/2020 12:00: 00 AM EST eCW1 ([facility]) [facility] IN[facility] SET [facility]IDER FOR SUBSTANCE ABUSE TREATMENT, CONTINUING CARE 03/29/2020 12:00:00 AM [facility] Detoxification Services for Substance Abuse Treatment DETOXIFICATION SERVICES FOR SUBSTANCE ABUSE TREATMENT 03/27/2020 12:00:00 AM [facility] Results ID Date Data Source [id number] 02/07/2021 08:25:00 PM EST [facility] Name Value Range Interpretation Code Description Data Nataly rce(s) Supporting Document(s) SARS coronavirus 2 RNA [Presence] in Res piratory specimen by SELMA with probe detection NEGATIVE [facility] This lab was ordered by [facility] a nd reported by [facility]. ID Date Data Source [id number] 12/29/2020 10:14:00 PM EDT [facility] Name Value Range Interpretation Code Description Data Nataly rce(s) Supporting Document(s) SARS coronavirus 2 RNA [Presence] in Res piratory specimen by SELMA with probe detection NEGATIVE [facility] This lab was ordered by [facility] a nd reported by [facility]. ID Date Data Source [id number] 12/10/2020 06:31:00 PM EDT [facility] Name Value Range Interpretation Code Description Data Nataly rce(s) Supporting Document(s) SARS-CoV-2 (COVID 19) NEGATIVE - SARS-CoV-2 (COVID19) [facility] This lab was ordered by [facility] a nd reported by [facility]. ID Date Data Source [id number] 09/13/2020 03:48:00 PM EDT [facility]. Counselor Progress NotePatient NotePatie nt chose [facility]. Patient was provided with contactinformation for aftercare treatment options, list of current local self-help meetings, community resources sheet, as well as contact informationfor the [facility] Behavioral Health Emotional SupportLine available 11/10. Staff spoke with patient regarding the benefits ofcompleting treatment and risks of leaving prior to recommended discharge.Patient confirmed understanding, noted having no questions or concernsand reported feeling safe at time of discharge, denying suicidal andhomicidal ideation. Nursing Ends Breakage Clerk and Hospitalist were notified ofAMA. At the [...] rce(s) Supporting Document(s) ID Date Data Source [id number] 09/13/2020 03:13:00 PM EDT [facility]. Counselor Progress NotePatient NoteCOUNS SHELBY EMDEROS, MS, CASAC-T, COMPLETED THE SAFE-T ASSESSMENTWITH THE PATIENT (SEE IN CHART).Dictated on 09/13/201512 by Shelby CurtisTranscribed on 09/13/201512 by Liz Curtis by Shelby Curtis on 09/13/201513Sign by: Shelby Curtis Name Value Range Interpretation Code Description Data Nataly rce(s) Supporting Document(s) ID Date Data Source [id number] 09/12/2020 02:00:[address] [facility] Name Value Range Interpretation Code Description Data Nataly rce(s) Supporting Document(s) SARS-CoV-2 (COVID-19) RNA [Presence] in Respiratory specimen by SELMA with probe detection Negative; No COVID-2 RNA detected by PCR. [facility] This lab was ordered by [facility] and reported by . ID Date Data Source [id number] 03/27/2020 01:04:00 PM [facility] spital Procedure Performed By: [facility] [address] [place] [address] Director: Latanya Zamarripa MD Mixed huang: Mixed huang, probable contamination. Name Value Range Interpretation Code Description Data Nataly rce(s) Supporting Document(s) ID Date Data Source [id number] 04/29/2020 01:30:00 PM [facility] Name Value Range Interpretation Code Description Data Nataly rce(s) Supporting Document(s) Vitamin B12 result 541 Normal (applies to non-numer ic results) [facility] SEE SCANNED REPORT ID Date Data Source [id number] 04/01/2020 10:39:00 PM [facility] Name Value Range Interpretation Code Description Data Nataly rce(s) Supporting Document(s) Vitamin D 1,25 result 60 pg/mL 18-78 Normal (applies to non-nu meric results) [facility] ADDITIONAL INFORMATIO N This test was developed and its performance characteristics determined by [facility] in a manner consistent with CLIA requirements. This test has not been cleared or approved by the U.S. Food and Drug Administration. Test Performed by: [facility] [place] [address] Peanut Sheller: Yves Enciso M.D. Ph.D.; CLIA# [id number] ID Date Data Source [id number] 03/26/2020 07:08:00 PM [facility] Name Value Range Interpretation Code Description Data Nataly rce(s) Supporting Document(s) Iron Level FE result 226 ug/dL 37-170 [facility] Test Performed By: [facility] [address] [place] [address] Director: Malaika Zamarripa MD ID Date Data Source [id number] 03/26/2020 07:08:00 PM [facility] Name Value Range Interpretation Code Description Data Nataly rce(s) Supporting Document(s) Ferritin result 138 ng/mL 6.2-137.0 Soni [facility] Test Performed By: [facility] [address] [place] [address] Director: Malaika Zamarripa MD ID Date Data Source [id number] 03/26/2020 06:38:00 PM [facility] Value Range Interpretation Code Description Data Nataly rce(s) Supporting Document(s) Ferritin 138 ng/mL 6.2-137.0 Above high normal [facility] Test [facility]: [facility] [address] [place] [address] Director: Malaika Zamarripa MD ID Date Data Source [id number] 03/26/2020 06:38:00 PM [facility] Value Range Interpretation Code Description Data Nataly rce(s) Supporting Document(s) Iron FE Level 226 ug/dL 37-170 Above high normal [facility] Test Performed By: [facility] [address] [place] [address] Director: Malaika Zamarripa MD ID Date Data Source [id number] 03/26/2020 06:38:00 PM [facility] Value Range Interpretation Code Description Data Nataly rce(s) Supporting Document(s) Vitamin B12 541 pg/mL 193-986 Normal (applies to non-numeric resu lts) [facility] Test Performed By: [facility] [address] [place] [address] Director: Malaika Zamarripa MD ID Date Data Source [id number] 03/26/2020 05:53:00 AM [facility] Value Range Interpretation Code Description Data Nataly rce(s) Supporting Document(s) Bilirubin,Direct 0.05-0.20 Above high normal [facility] ID Date Data Source [id number] 03/26/2020 05:54:00 AM [facility] Value Range Interpretation Code Description Data Nataly rce(s) Supporting Document(s) Thyroid Stimulate Hormone TSH 0.358-3.74 Above high normal [facility] ID Date Data Source [id number] 03/26/2020 05:53:00 AM [facility] Value Range Interpretation Code Description Data Nataly rce(s) Supporting Document(s) Phosphorus 2.5-4.9 Normal (applies to non-numeric resul ts) [facility] ID Date Data Source [id number] 03/26/2020 05:53:00 AM EST [facility] Name Value Range Interpretation Code Description Data Nataly rce(s) Supporting Document(s) Sodium 135 mmol/L 136-145 Below low normal [facility] Potassium 3.5-5.1 Normal (applies to non-numeric resul ts) [facility] Chloride 95 mmol/L 98-107 Below low normal [facility] Carbon Dioxide CO2 21-32 Normal (applies to non-numer ic results) [facility] Anion Gap 5.0-16.0 Normal (applies to non-numeric resul ts) [facility] BUN 5 mg/dL 7-18 Below low normal [facility] sp[facility] Creatinine,Serum 0.7-1.2 Normal (applies to non-numeric results) [facility] GFR >60 Normal (applies to non-numeric results) [facility] Glucose Level 90 mg/dL 60-99 Normal (applies to non-numeric re sults) [facility] Reference range is only applicable when patient is fasting Note the following drug interference: Sulfasalazine Sulfapyridine Can see falsely depressed Can see falsely elevated result with up to 17% results with up to 11% decrease in measurement increase in measurement Recommend patients be collected for this test prior to administration of either drug. Calcium 8.5-10.1 Normal (applies to non-numeric resul ts) [facility] Bilirubin,Total 0.1-1.9 Normal (applies to non-numeric results) [facility] SGOT(AST) 64 U/L 15-37 Above high normal [facility] Note the following drug interference: Sulfasalazine Sulfapyridine Can see falsely depressed Can see falsely elevated result with up to 10% results with up to 10% decrease in measurement increase in measurement Recommend patients be collected for this test prior to administration of either drug. SGPT(ALT) 105 U/L 12-78 Above high normal [facility] Note the following drug interference: Sulfasalazine Sulfapyridine Can see falsely depressed Can see falsely elevated result with up to 29% results with up to 10% decrease in measurement increase in measurement Recommend patients be collected for this test prior to administration of either drug. Alkaline Phosphatase 106 U/L 38-126 Normal (applies to non-num sue results) [facility] can increase Alkaline Phosp le vels up to 2 times the normal adult value. Normal values for children and adolescents are 2 to 3 times the normal adult value. Total Protein 6.0-8.2 Normal (applies to non-numeric re sults) [facility] Albumin Level 3.4-5.0 Normal (applies to non-numeric re sults) [facility] ID Date Data Source [id number] 03/26/2020 05:53:00 AM EST [facility] Name Value Range Interpretation Code Description Data Nataly rce(s) Supporting Document(s) Magnesium 1.8-2.4 Normal (applies to non-numeric resul ts) [facility] ID Date Data Source [id number] 03/26/2020 02:50:00 PM EST [facility] Name Value Range Interpretation Code Description Data Nataly rce(s) Supporting Document(s) CPK result 237 U/L 26-192 Soni [facility] Test Performed By: [facility] [address] [place] [address] Director: Malaika Zamarripa MD ID Date Data Source [id number] 03/26/2020 02:50:00 PM EST [facility] Name Value Range Interpretation Code Description Data Nataly rce(s) Supporting Document(s) Syphilis Serology result Nonreactive Normal (applies to non-numeric results) [facility] Test Performed By: [facility] [address] [place] [address] Director: Malaika Zamarripa MD ID Date Data Source [id number] 03/26/2020 01:59:00 PM EST [facility] Value Range Interpretation Code Description Data Nataly rce(s) Supporting Document(s) Syphilis Serology Nonreactive Normal (applies to non-numer ic results) [facility] Test Performed By: [facility] [address] [place] [address] Director: Malaika Zamarripa MD ID Date Data Source [id number] 03/26/2020 01:56:00 PM EST [facility] Name Value Range Interpretation Code Description Data Nataly rce(s) Supporting Document(s) CPK 237 U/L 26-192 Above high normal [facility] Test Performed By: [facility] [address] [place] [address] Director: Malaika Zamarripa MD ID Date Data Source [id number] 03/26/2020 11:41:00 AM [facility] Name Value Range Interpretation Code Description Data Nataly rce(s) Supporting Document(s) Reticulocyte Count 0.50-1.81 Normal (applies to non-numer ic results) [facility] ID Date Data Source [id number] 03/26/2020 05:28:00 AM [facility] Name Value Range Interpretation Code Description Data Nataly rce(s) Supporting Document(s) Ethanol Less than 10.0 Normal (applies to non-numeric r esults) [facility] ID Date Data Source [id number] 03/26/2020 05:02:00 AM [facility] Name Value Range Interpretation Code Description Data Nataly rce(s) Supporting Document(s) White Blood Count 3.5-10.5 Normal (applies to non-numeri c results) [facility] Red Blood Count 3.90-5.00 Below low normal [facility] Hemoglobin 12.0-15.5 Below low normal [facility] Hematocrit 34.9-44.5 Below low normal [facility] Mean Corpuscular Volume 81.2-95.1 Normal (applies to non- numeric results) [facility] Mean Corpuscular Hgb 25.6-32.2 Normal (applies to non-num sue results) [facility] Mean Corpuscular Hgb Conc 32.0-36.0 Normal (applies to no n-numeric results) [facility] Red Cell Distribution Width 11.9-15.5 Above high normal [facility] Platelet Count 149 x10 3/uL 150-450 Below low normal [facility] Mean Platelet Volume 9.4-12.4 Below low normal [facility] Neutrophils% (Auto) 31.0-71.0 Normal (applies to non-nume gucci results) [facility] Lymphocytes% (Auto) 20.0-55.0 Normal (applies to non-nume gucci results) [facility] Monocytes% (Auto) 4.0-12.0 Normal (applies to non-numeri c results) [facility] Eosinophils% (Auto) 1.0-8.0 Normal (applies to non-nume gucci results) [facility] Basophils% (Auto) 0.0-2.0 Normal (applies to non-numeri c results) [facility] Immature Granulocytes% (Auto) 0.0-2.0 Normal (racquel lies to non-numeric results) [facility] Neutrophils# (Auto) 1.50-6.20 Normal (applies to non-nume gucci results) [facility] Lymphocytes# (Auto) 1.20-4.00 Below low normal [facility] Monocytes# (Auto) 0.00-0.90 Normal (applies to non-numeri c results) [facility] Eosinophils# (Auto) 0.00-0.50 Normal (applies to non-nume gucci results) [facility] Basophils# (Auto) 0.00-0.20 Normal (applies to non-numeri c results) [facility] Immature Granulocytes# (Auto) 0.00-7.00 No rmal (applies to non-numeric results) [facility] ID Date Data Source [id number] 04/02/2020 12:13:00 AM EST [facility] Name Value Range Interpretation Code Description Data Nataly rce(s) Supporting Document(s) Vitamin D 1,25 result 60 pg/mL 18-78 Normal (applies to non-nu meric results) [facility] ADDITIONAL INFORMATIO N This test was developed and its performance characteristics determined by [facility] in a manner consistent with CLIA requirements. This test has not been cleared or approved by the U.S. Food and Drug Administration. Test Performed by: [facility] [address] [place] [address] Peanut Sheller: Yves Enciso M.D. Ph.D.; CLIA# [id number] ID Date Data Source [id number] 03/28/2020 05:44:00 PM [facility] Name Value Range Interpretation Code Description Data Nataly rce(s) Supporting Document(s) Chlamydia,Urine Negative Normal (applies to non-numeric results) [facility] Test Performed By: [facility] [address] [place] [address] Director: Malaika Zamarripa MD . GC Urine Negative Normal (applies to non-numeric resul ts) [facility] Test Performed By: [facility] [address] [place] [address] Director: Malaika Zamarripa MD . Methodology: Second generation nucleic acid amplification. ID Date Data Source [id number] 03/27/2020 11:31:00 AM [facility] Procedure Performed By: [facility] [address] [place] [address] Director: Latanya Zamarripa MD Name Value Range Interpretation Code Description Data Nataly rce(s) Supporting Document(s) Urine Culture Normal (applies to non-numeric re sults) [facility] ID Date Data Source [id number] 03/26/2020 06:59:00 AM [facility] Collected By: Nurse's Aide Initials: HR Collected By: Nurse's Aide Initials: HR Name Value Range Interpretation Code Description Data Nataly rce(s) Supporting Document(s) RBC,Urine None Seen [facility] WBC,Urine None Seen [facility] Casts,Urine None Seen Normal (applies to non-numeric resu lts) [facility] Epithelial Cells,Urine None - Few [facility] Squamous Cells,Urine None Seen [facility] Bacteria,Urine None Seen [facility] ital Mucus,Urine None [facility] ID Date Data Source [id number] 03/26/2020 06:59:00 AM [facility] Collected By: Nurse's Aide Initials: HR Collected By: Nurse's Aide Initials: HR Name Value Range Interpretation Code Description Data [facility] rce(s) Supporting Document(s) Color,Urine Colorl-Dk Y Normal (applies to non-numeric res ults) [facility] Clarity,Urine Clear Normal (applies to non-numeric re sults) [facility] Specific [place],Urine 1.005-1.030 Normal (applies to non- numeric results) [facility] pH,Urine 5.0-8.0 Normal (applies to non-numeric resul ts) [facility] Protein,Urine Negative [facility]oren Glucose,Urine Negative Normal (applies to non-numeric re sults) [facility] Ketones,Urine Negative Normal (applies to non-numeric re sults) [facility] Blood,Urine Negative Normal (applies to non-numeric resu lts) [facility] Bilirubin,Urine Negative Normal (applies to non-numeric results) [facility] Urobilinogen,Urine 0.2-1.0 Normal (applies to non-numer ic results) [facility] Leukocyte Esterase,Urine Negative [facility] Nitrite,Urine Negative Normal (applies to non-numeric re sults) [facility] ID Date Data Source [id number] 03/26/2020 06:30:00 AM [facility] Name Value Range Interpretation Code Description Data [facility] rce(s) Supporting Document(s) UDS Benzodiazepines Screen Negative [facility] UDS Cocaine Screen Negative Normal (applies to non-numer ic results) [facility] UDS Ampetamine Screen Negative Normal (applies to non-nu meric results) [facility] UDS Cannabinoids Screen Negative Normal (applies to non- numeric results) [facility] UDS Opiates Screen Negative Normal (applies to non-numer ic results) [facility] UDS Barbiturates Screen Negative Normal (applies to non- numeric results) [facility] Threshold Levels Benzodiazepine 200 ng/mL Cocaine 300 ng/mL Amphetamines 1000 ng/mL Cannabinoids (THC) 50 ng/mL Opiates 300 ng/mL Barbiturates 200 ng/mL All positive findings are presumptive and unconfirmed. Confirmation of positive results are performed only at request of provider. Unconfirmed results must not be used for non-medical purposes (i.e. preemployment and legal purposes) ID Date Data Source [id number] 03/28/2020 06:20:00 PM EST [facility] Name Value Range Interpretation Code Description Data Nataly rce(s) Supporting Document(s) Chlamydia,Urine result Negative Normal (applies to non-n umeric results) [facility] Test Performed By: [facility] [address] [place] [address] Director: Malaika Zamarripa MD . GC Urine result Negative Normal (applies to non-numeric results) [facility] Test Performed By: [facility] [address] [place] [address] Director: Malaika Zamarripa MD . Methodology: Second generation nucleic acid amplification. ID Date Data Source [id number] 03/26/2020 01:10:00 AM EST [facility] Name Value Range Interpretation Code Description Data Nataly rce(s) Supporting Document(s) SARS coronavirus 2 RNA [Presence] in Res piratory specimen by [facility] with probe detection NEGATIVE [facility] This lab was ordered by [facility] a nd reported by [facility]. ID Date Data Source [id number] 03/05/2020 03:31:00 PM EST [facility] Name Value Range Interpretation Code Description Data Nataly rce(s) Supporting Document(s) SARS coronavirus 2 RNA [Presence] in Res piratory specimen by [facility] with probe detection [facility] This lab was ordered by [facility] a nd reported by [facility]. ID Date Data Source [id number] 02/28/2020 07:24:00 AM EST [facility] Name Value Range Interpretation Code Description Data Nataly rce(s) Supporting Document(s) SARS coronavirus 2 RNA [Presence] in Res piratory specimen by [facility]ELMA with probe detection [facility] This lab was ordered by [facility] a nd reported by [facility]. Procedure Social History Code Duration Value Status Description Data Source(s ) Smoking 09/30/2020 12:00:00 AM EDT Current Smoker completed Curre nt Smoker eCW1 ([facility]) Smoking 09/30/2020 12:00:00 AM EDT Current Smoker completed Curre nt Smoker eCW1 ([facility]) Smoking 09/30/2020 12:00:00 AM EDT Current Smoker completed Curre nt Smoker eCW1 ([facility]) Smoking 09/30/2020 12:00:00 AM EDT Current Smoker completed Curre nt Smoker eCW1 ([facility]) Smoking 09/30/2020 12:00:00 AM EDT Current Smoker completed Curre nt Smoker eCW1 ([facility]) Smoking 09/30/2020 12:00:00 AM EDT Current Smoker completed Curre nt Smoker eCW1 ([facility]) Smoking 07/03/2020 12:00:00 AM EDT Current Smoker completed Curre nt Smoker eCW1 ([facility]) Smoking 07/03/2020 12:00:00 AM EDT Current Smoker completed Curre nt Smoker eCW1 ([facility]) Smoking 07/03/2020 12:00:00 AM EDT Current Smoker completed Curre nt Smoker eCW1 ([facility]) Smoking 07/03/2020 12:00:00 AM EDT Current Smoker completed Curre nt Smoker eCW1 ([facility]) Smoking 05/30/2020 12:00:00 AM EST Current Smoker completed Curre nt Smoker eCW1 ([facility]) Smoking 04/21/2020 12:00:00 AM EST Current Smoker completed Curre nt Smoker eCW1 ([facility]) Smoking 04/08/2020 12:00:00 AM EST Current Smoker completed Curre nt Smoker eCW1 ([facility]) Smoking 04/08/2020 12:00:00 AM EST Current Smoker completed Curre nt Smoker eCW1 ([facility]) Smoking 04/08/2020 12:00:00 AM EST Current Smoker completed Curre nt Smoker eCW1 ([facility]) Vital Signs ID Date Data Source UNK Name Value Range Interpretation Code Description Data Source(s) Body height 65.50 [in_i] 65.50 [in_i] MEDENT ([facility]) 5'5.50" Body weight 142.12 [lb_av] 142.12 [lb_av] MEDEN T ([facility]) Body mass index (BMI) [Ratio] 23.3 kg/m2 23.3 k g/m2 MEDENT ([facility] ) Body temperature 97.5 [degF] 97.5 [degF] MEDENT ([facility] Body weight 143 [lb_av] 143 [lb_av] eCW1 ([facility]) Body height 66 [in_i] 66 [in_i] eCW1 ([facility]) Body mass index (BMI) [Ratio] 23.08 kg/m2 23.08 kg/m2 eCW1 ([facility]) Heart rate 105 /min 105 /min eCW1 ([facility]) Respiratory rate 18 /min 18 /min eCW1 ([facility]) Body temperature 97.2 [degF] 97.2 [degF] eCW1 ( [facility]) Systolic blood pressure 110 mm[Hg] 110 mm[Hg] e CW1 ([facility]) Diastolic blood pressure 70 mm[Hg] 70 mm[Hg] eCW1 ([facility]) Body weight 158 [lb_av] 158 [lb_av] eCW1 ([facility]) Body height 66 [in_i] 66 [in_i] eCW1 ([facility]) Body mass index (BMI) [Ratio] 25.50 kg/m2 25.50 kg/m2 W1 ([facility]) Heart rate /min eCW1 ([facility]) Respiratory rate 18 /min 18 /min eCW1 ([facility]) Body temperature 98.7 [degF] 98.7 [degF] eCW1 ( [facility]) Systolic blood pressure 126 mm[Hg] 126 mm[Hg] e CW1 ([facility]) Diastolic blood pressure 78 mm[Hg] 78 mm[Hg] eCW1 ([facility]) Respiratory rate 18 /min 18 /min eCW1 ([facility]) Body temperature 98.4 [degF] 98.4 [degF] eCW1 ( [facility]) Systolic blood pressure 96 mm[Hg] 96 mm[Hg] e CW1 ([facility]) Diastolic blood pressure 66 mm[Hg] 66 mm[Hg] eCW1 ([facility]) Body weight 154 [lb_av] 154 [lb_av] eCW1 ([facility]) Body height 66 [in_i] 66 [in_i] eCW1 ([facility]) Body mass index (BMI) [Ratio] 24.85 kg/m2 24.85 kg/m2 eCW1 ([facility]) Heart rate 107 /min 107 /min eCW1 ([facility]) Body weight 153 [lb_av] 153 [lb_av] eCW1 ([facility]) Body height 66 [in_i] 66 [in_i] eCW1 ([facility]) Body mass index (BMI) [Ratio] 24.69 kg/m2 24.69 kg/m2 eCW1 ([facility]) Heart rate 104 /min 104 /min eCW1 ([facility]) Respiratory rate 18 /min 18 /min eCW1 ([facility]) Body temperature 97.0 [degF] 97.0 [degF] eCW1 ( [facility]) Systolic blood pressure 104 mm[Hg] 104 mm[Hg] e CW1 ([facility]) Diastolic blood pressure 62 mm[Hg] 62 mm[Hg] eCW1 ([facility]) ID Date Data Source [id number] 04/01/2020 10:39:00 PM EST [facility] Name Value Range Interpretation Code Description Data Source(s) Weight (Calculated Kilograms) 63.50 63.50 [facility] Height (Calculated Centimeters) 167.64 167. 64 [facility] Body Mass Index (BMI) 22.6 22.6 [facility] ID Date Data Source [id number] 04/29/2020 01:30:00 PM EST [facility] Name Value Range Interpretation Code Description Data Source(s) Weight Measurement Method 8 8 [facility] Weight (Calculated Kilograms) 63.50 63.50 [facility] Weight 2240 2240 [facility] pital Temperature Source 7 7 [facility] Temperature 97.9 97.9 [facility] spital Respiratory Effort 1 1 [facility] Respiratory Rate 20 20 [facility] Pulse Assessment Method 4 4 G [facility] Pulse Rate 112 112 [facility] pital Height (Calculated Centimeters) 167.64 167. 64 [facility] 110/80 110/80 [facility] Body Mass Index (BMI) 22.6 22.6 [facility] Weight Measurement Method 8 8 [facility] Weight (Calculated Kilograms) 63.50 63.50 [facility] Weight 2240 2240 [facility] pital Temperature Source 7 7 [facility] Temperature 97.9 97.9 [facility] spital Respiratory Effort 1 1 [facility] Respiratory Rate 20 20 [facility] Pulse Assessment Method 4 4 G [facility] Pulse Rate 112 112 [facility] pital Height (Calculated Centimeters) 167.64 167. 64 [facility] 66 [facility] 110/80 110/80 [facility] Body Mass Index (BMI) 22.6 226 [facility] Weight Measurement Method 8 8 [facility] Weight (Calculated Kilograms) 63.50 63.50 [facility] Weight 2240 2240 [facility] pital Temperature Source 7 7 [facility] Temperature 97.9 97.9 [facility] spital Respiratory Effort 1 1 [facility] Respiratory Rate 20 20 [facility] Pulse Assessment Method 4 4 G [facility] Pulse Rate 112 112 [facility] pital Height (Calculated Centimeters) 167.64 167. 64 [facility] Height 66 66 [facility] pital Blood Pressure 110/80 110/80 [facility] Body Mass Index (BMI) 22.6 22.6 [facility] Weight Measurement Method 8 8 [facility] Weight (Calculated Kilograms) 63.50 63.50 [facility] Weight 2240 2240 [facility] pital Temperature Source 7 7 [facility] Temperature 97.2 97.2 [facility] spital Respiratory Effort 1 1 [facility] Respiratory Rate 14 14 [facility] Pulse Assessment Method 4 4 G [facility] Pulse Rate 85 85 [facility] pital Height (Calculated Centimeters) 167.64 167. 64 [facility] Height 66 66 [facility] pital Blood Pressure 107/75 107/75 [facility] Body Mass Index (BMI) 22.6 22.6 [facility] Weight (Calculated Kilograms) 63.50 63.50 [facility] Height (Calculated Centimeters) 167.64 167. 64 [facility] Body Mass Index (BMI) 22.[address] ID Date Data Source [id number] 12/25/2019 08:28:00 AM EDT [facility] spital Name Value Range Interpretation Code Description Data Source(s) Weight Measurement Method 8 8 [facility] Weight (Calculated Kilograms) 63.50 63.50 [facility] Weight 2240 2240 [facility] pital Temperature Source 7 7 [facility] Temperature 98.8 98.8 [facility] spital Respiratory Effort 1 1 [facility] Respiratory Rate 18 18 [facility] Pulse Assessment Method 4 4 G [facility] Pulse Rate 86 86 [facility] pital Height (Calculated Centimeters) 167.64 167. 64 [facility] Height 66 66 [facility] pital Blood Pressure 121/86 121/86 [facility] Body Mass Index (BMI) 22.6 22.6 [facility] Weight Measurement Method 8 8 [facility] Weight (Calculated Kilograms) 63.50 63.50 [facility] Weight 2240 2240 [facility] pital Temperature Source 1 1 [facility] Temperature 98.7 98.7 [facility] spital Respiratory Effort 1 1 [facility] Respiratory Rate 20 20 [facility] Pulse Assessment Method 4 4 G [facility] Pulse Rate 114 114 [facility] pital Height (Calculated Centimeters) 167.64 167. 64 [facility] Height 66 66 [facility] pital Blood Pressure 131/96 131/96 [facility] Body Mass Index (BMI) 22.[address] [place] [address] Weight Measurement Method 8 8 [facility] Weight (Calculated Kilograms) 63.50 63.50 [facility] Weight 2240 2240 [facility] pital Temperature Source 1 1 [facility] Temperature 98.7 98.7 [facility] spital Respiratory Effort 1 1 [facility] Respiratory Rate 20 20 [facility] Pulse Assessment Method 4 4 G [facility] Pulse Rate 114 114 [facility] pital Height (Calculated Centimeters) 167.64 167. 64 [facility] Height 66 66 [facility] pital Blood Pressure 131/96 131/96 [facility] Body Mass Index (BMI) 22.6 22.6 [facility] Weight (Calculated Kilograms) 63.[address] [place] [address] Height (Calculated Centimeters) 167.64 167. 64 [facility] Body Mass Index (BMI) 22.6 22.6 [facility] Weight (Calculated Kilograms) 63.[address] Height (Calculated Centimeters) 167.64 167. 64 [facility] Body Mass Index (BMI) 22.6 226 [facility] Patient Treatment Plan of Care Planned Activity Planned Date Details Description Data Source (s) Acamprosate calcium 333 MG Delayed Release Oral Tablet 09/23/2020 12:00:00 AM EDT eCW1 ([facility]) Acamprosate calcium 333 MG Delayed Release [facility] 333 MG Delayed Release Oral Tablet 09/13/2020 12:00:00 AM EDT [facility] quetiapine 25 MG Oral Tablet [Seroquel] 04/08/2020 12:00:00 AM EST eCW1 ([facility]) Naltrexone 112 MG/ML Injectable Suspension [Vivitrol] 04/08/2020 12:00:00 AM EST eCW1 ([facility]ly [facility]) Naltrexone 112 MG/ML Injectable Suspension [Vivitrol] 04/08/2020 12:00:00 AM EST eCW1 ([facility]ly [facility]) quetiapine 25 MG Oral Tablet [Seroquel] 04/08/2020 12:00:00 AM EST eCW1 ([facility]) Naltrexone 112 MG/ML Injectable Suspension [Vivitrol] 04/08/2020 12:00:00 AM EST eCW1 ([facility]ly [facility]) Naltrexone 112 MG/ML Injectable Suspension [Vivitrol] 04/08/2020 12:00:00 AM EST eCW1 ([facility]) quetiapine 25 MG Oral Tablet [Seroquel] 04/08/2020 12:00:00 AM EST eCW1 ([facility]) Naltrexone 112 MG/ML Injectable Suspension [Vivitrol] 04/08/2020 12:00:00 AM EST eCW1 ([facility]ly [facility]) Naltrexone 112 MG/ML Injectable Suspension [Vivitrol] 04/08/2020 12:00:00 AM EST eCW1 ([facility]ly [facility])
[2021-02-20 07:00] VITALS: BP 116/82
[2021-02-20] MEDS ORDERED: FOLIC ACID 1 MG TAB PO SCH (09:00)
[2021-02-20] MEDS ORDERED: MULTIVITAMINS/MINERALS THERAP 1 TAB PO SCH (09:00)
== END 2021-02-20 07:04 | disposition home or self-care (01) ==
LOC: M ED 00:26
DX: F10.129 Alcohol abuse with intoxication, unspecified (principal); Y90.2 Blood alcohol level of 40-59 mg/100 ml; F33.9 Major depressive disorder, recurrent, unspecified; Z79.899 Other long term (current) drug therapy; F17.210 Nicotine dependence, cigarettes, uncomplicated

== ENCOUNTER → 2021-03-04 | Outpatient (CLI) | payer MEDICAID ==
[~2021-03-04] MED LIST changes: -THIAMINE 100 MG TAB PO SCH
== END ==
LOC: M OUTALCOH 07:42
PROVIDERS: ATTEND Psychiatry & Neurology Psychiatry
DX: F10.20 Alcohol dependence, uncomplicated (principal)

== ENCOUNTER 2021-03-11 09:49 | Outpatient (RCR) | payer MEDICAID | END 2021-03-20 | LOC: M OUTALCOH 09:49 | PROVIDERS: ATTEND Psychiatry & Neurology Psychiatry | DX: F10.20 Alcohol dependence, uncomplicated (principal) ==

== ENCOUNTER → 2021-07-13 | Outpatient (CLI) | payer MEDICAID ==
[~2021-07-13] MED LIST changes: -CITA40TA4; -CITA40TA4 PO; +CITA40TA7; +CITA40TA7 PO; +DISU1TAB6 PO; -DISU250T PO
== END ==
LOC: M OUTALCOH 08:05
PROVIDERS: ATTEND Psychiatry & Neurology Psychiatry
DX: Z03.89 Encounter for observation for other suspected diseases and conditions ruled out (principal)

== ENCOUNTER 2021-08-07 08:40 | Outpatient (RCR) | payer MEDICAID | END 2021-08-18 | LOC: M OUTALCOH 08:40 | PROVIDERS: ATTEND Psychiatry & Neurology Psychiatry | DX: F10.20 Alcohol dependence, uncomplicated (principal) ==

== ENCOUNTER 2021-09-12 17:40 | Inpatient (IN) | payer MEDICAID, OTHER ==
[~2021-09-12] VITALS: Ht 165.1 cm; Wt 69.4 kg
[2021-09-12 19:21] LABS: BASO % 0.4 % (0.0-1.0); EOS % 0.1 % (0.0-3.0); HEMATOCRIT 35.8 % (36.0-47.0); HEMOGLOBIN 11.5 g/dl (12.0-15.5); LYMPH # 1.5 10^3/uL (1.5-5.0); LYMPH % 14.2 % (24.0-44.0); MEAN CORPUSCULAR HEMOGLOBIN 26.1 pg (27.0-33.0); MEAN CORPUSCULAR HGB CONC 32.1 g/dl (32.0-36.5); MEAN CORPUSCULAR VOLUME 81.2 fl (80.0-96.0); MONO # 0.5 10^3/uL (0.0-0.8); MONO % 5.1 % (2.0-8.0); NEUTROPHILS # 8.3 10^3/uL (1.5-8.5); NEUTROPHILS % 79.9 % (36.0-66.0); PLATELET COUNT, AUTOMATED 336 10^3/uL (150-450); RED BLOOD COUNT 4.41 10^6/uL (4.00-5.40); WHITE BLOOD COUNT 10.4 10^3/uL (4.0-10.0)
[2021-09-12 19:42] LABS: AMPHETAMINES LEVEL URINE NEGATIVE (NEGATIVE); BARBITURATES URINE NEGATIVE (NEGATIVE); BENZODIAZEPINES URINE NEGATIVE (NEGATIVE); CANNABINOIDS URINE NEGATIVE (NEGATIVE); COCAINE METABOLITE URINE NEGATIVE (NEGATIVE); METHADONE URINE NEGATIVE (NEGATIVE); OPIATES URINE NEGATIVE (NEGATIVE); PHENCYCLIDINE URINE NEGATIVE (NEGATIVE)
[2021-09-12] MEDS ORDERED: NS 1,000 ML IV ONE (21:00)
[2021-09-12] MEDS ORDERED: THIAMINE 100 MG TAB PO SCH (21:00)
[2021-09-12] MEDS ORDERED: ONDANSETRON 4MG/2ML VIAL IV ONE (21:00)
[2021-09-12] MEDS: LORazepam 2 MG TAB PO PRN ×2 (21:16→22:52)
[2021-09-12 21:17] LABS: ALBUMIN 3.9 GM/DL (3.2-5.2); ALT/SGPT 52 U/L (12-78); BILIRUBIN,DIRECT 0.2 MG/DL (0.0-0.2); BILIRUBIN,TOTAL 0.7 MG/DL (0.2-1.0); BLOOD UREA NITROGEN 6 MG/DL (7-18); CALCIUM LEVEL 8.2 MG/DL (8.5-10.1); CARBON DIOXIDE LEVEL 23 MEQ/L (21-32); CHLORIDE LEVEL 105 MEQ/L (98-107); CREATININE FOR GFR 0.55 MG/DL (0.55-1.30); ETHYL ALCOHOL (ETHANOL) 0.357 % (0.000-0.010); GLOMERULAR FILTRATION RATE > 60.0 (>60); GLUCOSE, FASTING 91 MG/DL (70-100); POTASSIUM SERUM 4.4 MEQ/L (3.5-5.1); SALICYLATE LEVEL < 1.7 MG/DL (5.0-30.0); SODIUM LEVEL 141 MEQ/L (136-145); TOTAL PROTEIN 7.5 GM/DL (6.4-8.2)
[2021-09-12 23:13] LABS: ACETAMINOPHEN LEVEL < 2.0 UG/ML (0.0-30.0)
[2021-09-12] MEDS ORDERED: MED REC COMMENT (23:43)
[2021-09-12] MEDS ORDERED: HOME MED LIST COMPLETE! XX SCH (23:50)
[2021-09-13] VITALS (7 sets, daily range): BP systolic 107–127; BP diastolic 65–73
[2021-09-13] MEDS ORDERED: MAALOX 30 ML SUSP *UDC PO PRN
[2021-09-13] MEDS ORDERED: MOM 30ML SUSPENSION UDC PO PRN
[2021-09-13 00:13] LABS: RSV AMPLIFICATION NEGATIVE (NEGATIVE)
[2021-09-13] MEDS: ACETAMINOPHEN TAB 650MG DOSE (2X325MG) PO PRN (04:57)
[2021-09-13 05:50] LABS: BASO % 0.2 % (0.0-1.0); EOS # 0.1 10^3/uL (0.0-0.5); EOS % 0.7 % (0.0-3.0); HEMATOCRIT 30.3 % (36.0-47.0); HEMOGLOBIN 9.6 g/dl (12.0-15.5); LYMPH # 1.9 10^3/uL (1.5-5.0); MEAN CORPUSCULAR HEMOGLOBIN 25.3 pg (27.0-33.0); MEAN CORPUSCULAR HGB CONC 31.7 g/dl (32.0-36.5); MEAN CORPUSCULAR VOLUME 79.9 fl (80.0-96.0); MONO # 0.6 10^3/uL (0.0-0.8); MONO % 7.1 % (2.0-8.0); NEUTROPHILS # 5.7 10^3/uL (1.5-8.5); NEUTROPHILS % 68.6 % (36.0-66.0); PLATELET COUNT, AUTOMATED 273 10^3/uL (150-450); RED BLOOD COUNT 3.79 10^6/uL (4.00-5.40); WHITE BLOOD COUNT 8.3 10^3/uL (4.0-10.0)
[2021-09-13 06:10] LABS: ALBUMIN 3.4 GM/DL (3.2-5.2); ALT/SGPT 41 U/L (12-78); BLOOD UREA NITROGEN 7 MG/DL (7-18); CALCIUM LEVEL 8.2 MG/DL (8.5-10.1); CARBON DIOXIDE LEVEL 23 MEQ/L (21-32); CHLORIDE LEVEL 104 MEQ/L (98-107); CREATININE FOR GFR 0.53 MG/DL (0.55-1.30); GLOMERULAR FILTRATION RATE > 60.0 (>60); GLUCOSE, FASTING 66 MG/DL (70-100); MAGNESIUM LEVEL 2.1 MG/DL (1.8-2.4); POTASSIUM SERUM 3.6 MEQ/L (3.5-5.1); SODIUM LEVEL 141 MEQ/L (136-145); TOTAL PROTEIN 6.8 GM/DL (6.4-8.2)
[2021-09-13] MEDS: THIAMINE 100 MG TAB PO SCH ×2 (07:43→21:38)
[2021-09-13] MEDS: LORazepam 2 MG TAB PO PRN ×3 (07:43→16:52)
[2021-09-13] MEDS: MULTIVITAMINS/MINERALS THERAP 1 TAB PO SCH (07:43)
[2021-09-13] MEDS: FOLIC ACID 1 MG TAB PO SCH (07:43)
[2021-09-13] MEDS: CitaloPRAM (CeleXA) 20 MG TAB PO SCH (07:43)
[2021-09-13] MEDS: ENOXAPARIN 40MG/0.4ML SYRINGE (J1650 PER 10MG) SC SCH (07:44)
[2021-09-13] MEDS ORDERED: MULTIVITAMINS/MINERALS THERAP 1 TAB PO SCH (09:00)
[2021-09-13] MEDS ORDERED: FOLIC ACID 1 MG TAB PO SCH (09:00)
[2021-09-13] MEDS ORDERED: NS 1,000 ML IV SCH (10:00)
[2021-09-13] MEDS: ONDANSETRON 4MG/2ML VIAL IV PRN (11:44)
[2021-09-14 04:00] VITALS: BP 130/76
[2021-09-14 05:53] LABS: HEMATOCRIT 30.1 % (36.0-47.0); HEMOGLOBIN 9.6 g/dl (12.0-15.5); MEAN CORPUSCULAR HEMOGLOBIN 25.8 pg (27.0-33.0); MEAN CORPUSCULAR HGB CONC 31.9 g/dl (32.0-36.5); MEAN CORPUSCULAR VOLUME 80.9 fl (80.0-96.0); PLATELET COUNT, AUTOMATED 213 10^3/uL (150-450); RED BLOOD COUNT 3.72 10^6/uL (4.00-5.40); WHITE BLOOD COUNT 6.3 10^3/uL (4.0-10.0)
[2021-09-14 06:07] LABS: BLOOD UREA NITROGEN 7 MG/DL (7-18); CALCIUM LEVEL 8.6 MG/DL (8.5-10.1); CARBON DIOXIDE LEVEL 23 MEQ/L (21-32); CHLORIDE LEVEL 103 MEQ/L (98-107); CREATININE FOR GFR 0.47 MG/DL (0.55-1.30); GLOMERULAR FILTRATION RATE > 60.0 (>60); GLUCOSE, FASTING 75 MG/DL (70-100); MAGNESIUM LEVEL 2.2 MG/DL (1.8-2.4); PHOSPHORUS LEVEL 3.3 MG/DL (2.5-4.9); POTASSIUM SERUM 3.4 MEQ/L (3.5-5.1); SODIUM LEVEL 139 MEQ/L (136-145)
[2021-09-14] MEDS ORDERED: POTASSIUM CHLORIDE 10MEQ SR TABLET PO ONE (06:55)
[2021-09-14 07:55] VITALS: BP 119/75
[2021-09-14] MEDS: THIAMINE 100 MG TAB PO SCH ×2 (08:35→21:04)
[2021-09-14] MEDS: MULTIVITAMINS/MINERALS THERAP 1 TAB PO SCH (08:35)
[2021-09-14] MEDS: FOLIC ACID 1 MG TAB PO SCH (08:35)
[2021-09-14] MEDS: CitaloPRAM (CeleXA) 20 MG TAB PO SCH (08:35)
[2021-09-14] MEDS: ENOXAPARIN 40MG/0.4ML SYRINGE (J1650 PER 10MG) SC SCH ×2 (08:36→08:39)
[2021-09-14 10:00] VITALS: BP 108/73
[2021-09-14] MEDS: NS 1,000 ML IV SCH ×2 (10:02→17:17)
[2021-09-14] MEDS: LORazepam 2 MG TAB PO PRN ×2 (10:03→21:04)
[2021-09-14 12:30] VITALS: BP 124/81
[2021-09-14 16:30] VITALS: BP 126/85
[2021-09-14] MEDS: ACETAMINOPHEN TAB 650MG DOSE (2X325MG) PO PRN ×2 (16:38→21:04)
[2021-09-14 20:00] VITALS: BP 120/79
[2021-09-14] MEDS: ONDANSETRON 4MG/2ML VIAL IV PRN (21:04)
[2021-09-15] VITALS (8 sets, daily range): BP systolic 12–124; BP diastolic 7–80
[2021-09-15] MEDS: NS 1,000 ML IV SCH ×3 (00:54→18:12)
[2021-09-15 05:07] LABS: HEMATOCRIT 28.8 % (36.0-47.0); HEMOGLOBIN 9.1 g/dl (12.0-15.5); MEAN CORPUSCULAR HEMOGLOBIN 26.4 pg (27.0-33.0); MEAN CORPUSCULAR HGB CONC 31.6 g/dl (32.0-36.5); MEAN CORPUSCULAR VOLUME 83.5 fl (80.0-96.0); PLATELET COUNT, AUTOMATED 168 10^3/uL (150-450); RED BLOOD COUNT 3.45 10^6/uL (4.00-5.40); WHITE BLOOD COUNT 5.4 10^3/uL (4.0-10.0)
[2021-09-15 05:32] LABS: BLOOD UREA NITROGEN 6 MG/DL (7-18); CALCIUM LEVEL 8.2 MG/DL (8.5-10.1); CARBON DIOXIDE LEVEL 25 MEQ/L (21-32); CHLORIDE LEVEL 107 MEQ/L (98-107); CREATININE FOR GFR 0.38 MG/DL (0.55-1.30); GLOMERULAR FILTRATION RATE > 60.0 (>60); GLUCOSE, FASTING 82 MG/DL (70-100); MAGNESIUM LEVEL 2.1 MG/DL (1.8-2.4); PHOSPHORUS LEVEL 2.9 MG/DL (2.5-4.9); POTASSIUM SERUM 3.6 MEQ/L (3.5-5.1); SODIUM LEVEL 140 MEQ/L (136-145)
[2021-09-15] MEDS: ENOXAPARIN 40MG/0.4ML SYRINGE (J1650 PER 10MG) SC SCH (09:00)
[2021-09-15] MEDS: FOLIC ACID 1 MG TAB PO SCH (09:20)
[2021-09-15] MEDS: CitaloPRAM (CeleXA) 20 MG TAB PO SCH (09:20)
[2021-09-15] MEDS: MULTIVITAMINS/MINERALS THERAP 1 TAB PO SCH (09:20)
[2021-09-15] MEDS: THIAMINE 100 MG TAB PO SCH ×2 (09:20→21:00)
[2021-09-16] MEDS: NS 1,000 ML IV SCH ×2 (01:10→10:41)
[2021-09-16 03:55] VITALS: BP 107/72
[2021-09-16 05:41] LABS: HEMATOCRIT 29.2 % (36.0-47.0); HEMOGLOBIN 9.2 g/dl (12.0-15.5); MEAN CORPUSCULAR HEMOGLOBIN 26.4 pg (27.0-33.0); MEAN CORPUSCULAR HGB CONC 31.5 g/dl (32.0-36.5); MEAN CORPUSCULAR VOLUME 83.9 fl (80.0-96.0); PLATELET COUNT, AUTOMATED 181 10^3/uL (150-450); RED BLOOD COUNT 3.48 10^6/uL (4.00-5.40); WHITE BLOOD COUNT 4.9 10^3/uL (4.0-10.0)
[2021-09-16 06:00] LABS: BLOOD UREA NITROGEN 4 MG/DL (7-18); CALCIUM LEVEL 8.2 MG/DL (8.5-10.1); CARBON DIOXIDE LEVEL 26 MEQ/L (21-32); CHLORIDE LEVEL 110 MEQ/L (98-107); CREATININE FOR GFR 0.36 MG/DL (0.55-1.30); GLOMERULAR FILTRATION RATE > 60.0 (>60); GLUCOSE, FASTING 97 MG/DL (70-100); POTASSIUM SERUM 3.6 MEQ/L (3.5-5.1); SODIUM LEVEL 141 MEQ/L (136-145)
[2021-09-16] MEDS: MULTIVITAMINS/MINERALS THERAP 1 TAB PO SCH (07:48)
[2021-09-16] MEDS: FOLIC ACID 1 MG TAB PO SCH (07:48)
[2021-09-16] MEDS: ENOXAPARIN 40MG/0.4ML SYRINGE (J1650 PER 10MG) SC SCH (07:48)
[2021-09-16] MEDS: CitaloPRAM (CeleXA) 20 MG TAB PO SCH (07:49)
[2021-09-16 07:57] VITALS: BP 112/73
[2021-09-16 08:00] VITALS: BP 112/73
== END 2021-09-16 13:54 | disposition home or self-care (01) | DRG 775 ==
LOC: M ED 17:40 → M ED INP 23:58 → ENRESERV 09-13 00:26 → M PCU 09-13 01:47
PROVIDERS: ADMIT Family Medicine; ATTEND Internal Medicine
DX: F10.239 Alcohol dependence with withdrawal, unspecified (principal); I10 Essential (primary) hypertension; R00.0 Tachycardia, unspecified; Z90.49 Acquired absence of other specified parts of digestive tract; Z98.84 Bariatric surgery status; Z20.822 Contact with and (suspected) exposure to COVID-19; Z79.899 Other long term (current) drug therapy; F41.9 Anxiety disorder, unspecified; R53.81 Other malaise; R79.89 Other specified abnormal findings of blood chemistry

== ENCOUNTER 2021-09-24 16:18 | Inpatient (IN) | payer MEDICAID, OTHER ==
[~2021-09-24] VITALS: Ht 167.6 cm; Wt 72.8 kg
[~2021-09-24 16:18] MED LIST changes: +MED REC COMMENT
[2021-09-24] MEDS: LORazepam 2 MG TAB PO PRN ×2 (17:40→22:22)
[2021-09-24 17:55] LABS: BASO % 0.6 % (0.0-1.0); HEMATOCRIT 36.3 % (36.0-47.0); HEMOGLOBIN 11.8 g/dl (12.0-15.5); LYMPH # 1.4 10^3/uL (1.5-5.0); LYMPH % 28.6 % (24.0-44.0); MEAN CORPUSCULAR HEMOGLOBIN 26.5 pg (27.0-33.0); MEAN CORPUSCULAR HGB CONC 32.5 g/dl (32.0-36.5); MEAN CORPUSCULAR VOLUME 81.6 fl (80.0-96.0); MONO # 0.4 10^3/uL (0.0-0.8); MONO % 8.9 % (2.0-8.0); NEUTROPHILS # 3.1 10^3/uL (1.5-8.5); NEUTROPHILS % 61.7 % (36.0-66.0); PLATELET COUNT, AUTOMATED 267 10^3/uL (150-450); RED BLOOD COUNT 4.45 10^6/uL (4.00-5.40)
[2021-09-24 18:23] LABS: AMPHETAMINES LEVEL URINE NEGATIVE (NEGATIVE); BARBITURATES URINE NEGATIVE (NEGATIVE); BENZODIAZEPINES URINE NEGATIVE (NEGATIVE); CANNABINOIDS URINE NEGATIVE (NEGATIVE); COCAINE METABOLITE URINE NEGATIVE (NEGATIVE); METHADONE URINE NEGATIVE (NEGATIVE); OPIATES URINE NEGATIVE (NEGATIVE); PHENCYCLIDINE URINE NEGATIVE (NEGATIVE)
[2021-09-24 18:38] LABS: ACETAMINOPHEN LEVEL < 2.0 UG/ML (10.0-30.0); ALBUMIN 3.9 GM/DL (3.2-5.2); ALT/SGPT 144 U/L (12-78); BILIRUBIN,DIRECT < 0.1 MG/DL (0.0-0.2); BILIRUBIN,TOTAL 0.3 MG/DL (0.2-1.0); BLOOD UREA NITROGEN 2 MG/DL (7-18); CALCIUM LEVEL 8.2 MG/DL (8.5-10.1); CARBON DIOXIDE LEVEL 28 MEQ/L (21-32); CHLORIDE LEVEL 104 MEQ/L (98-107); CREATININE FOR GFR 0.62 MG/DL (0.55-1.30); ETHYL ALCOHOL (ETHANOL) 0.445 % (0.000-0.010); GLOMERULAR FILTRATION RATE > 60.0 (>60); GLUCOSE, FASTING 115 MG/DL (70-100); POTASSIUM SERUM 3.7 MEQ/L (3.5-5.1); SALICYLATE LEVEL < 1.7 MG/DL (5.0-30.0); SODIUM LEVEL 141 MEQ/L (136-145); TOTAL PROTEIN 7.8 GM/DL (6.4-8.2)
[2021-09-24] MEDS ORDERED: NS 1,000 ML IV ONE (19:10)
[2021-09-24 19:14] LABS: RSV AMPLIFICATION NEGATIVE (NEGATIVE)
[2021-09-24] MEDS ORDERED: THIAMINE 100 MG TAB PO SCH (21:00)
[2021-09-25] VITALS (7 sets, daily range): BP systolic 101–140; BP diastolic 70–82
[2021-09-25] MEDS ORDERED: MEDR150I10 IM (00:07)
[2021-09-25] MEDS ORDERED: QUET1TAB17 PO (00:07)
[2021-09-25] MEDS ORDERED: TRAZ-257 PO (00:07)
[2021-09-25] MEDS ORDERED: HOME MED LIST COMPLETE! XX SCH (00:10)
[2021-09-25] MEDS ORDERED: LORazepam 2 MG TAB PO PRN (01:05)
[2021-09-25] MEDS ORDERED: NS 1,000 ML IV SCH (01:25)
[2021-09-25 07:28] LABS: INR 1.09; PROTHROMBIN TIME 14.5 SECONDS (12.7-14.5)
[2021-09-25] MEDS ORDERED: diazePAM 10MG/2ML SYRINGE (J3360 PER 5MG) IV ONE (08:55)
[2021-09-25] MEDS ORDERED: MULTIVITAMINS/MINERALS THERAP 1 TAB PO SCH (09:00)
[2021-09-25] MEDS ORDERED: FOLIC ACID 1 MG TAB PO SCH (09:00)
[2021-09-25 09:20] LABS: BASO % 0.6 % (0.0-1.0); EOS % 0.7 % (0.0-3.0); HEMATOCRIT 30.3 % (36.0-47.0); LYMPH # 1.9 10^3/uL (1.5-5.0); MEAN CORPUSCULAR HEMOGLOBIN 25.7 pg (27.0-33.0); MEAN CORPUSCULAR HGB CONC 31.7 g/dl (32.0-36.5); MONO # 0.4 10^3/uL (0.0-0.8); MONO % 7.9 % (2.0-8.0); NEUTROPHILS # 3.1 10^3/uL (1.5-8.5); NEUTROPHILS % 56.6 % (36.0-66.0); PLATELET COUNT, AUTOMATED 186 10^3/uL (150-450); RED BLOOD COUNT 3.74 10^6/uL (4.00-5.40); WHITE BLOOD COUNT 5.4 10^3/uL (4.0-10.0)
[2021-09-25 09:31] LABS: HEMOGLOBIN 9.6 g/dl (12.0-15.5)
[2021-09-25 09:40] LABS: CK-MB VALUE MASS 2.3 NG/ML (<3.6); MB/CK RELATIVE INDEX 0.29 (< OR =4)
[2021-09-25 09:45] LABS: ALBUMIN 2.9 GM/DL (3.2-5.2); ALT/SGPT 105 U/L (12-78); BILIRUBIN,TOTAL 0.6 MG/DL (0.2-1.0); BLOOD UREA NITROGEN 3 MG/DL (7-18); CARBON DIOXIDE LEVEL 21 MEQ/L (21-32); CHLORIDE LEVEL 107 MEQ/L (98-107); CREATININE FOR GFR 0.44 MG/DL (0.55-1.30); GLOMERULAR FILTRATION RATE > 60.0 (>60); GLUCOSE, FASTING 83 MG/DL (70-100); POTASSIUM SERUM 4.2 MEQ/L (3.5-5.1); SODIUM LEVEL 138 MEQ/L (136-145)
[2021-09-25] MEDS ORDERED: NS 1,000 ML IV ONE (12:00)
[2021-09-25] MEDS: OXAZEPAM 10MG CAP PO SCH ×3 (12:00→23:19)
[2021-09-25] MEDS: HEPARIN SOD (PORCINE) 5000UNITS/ML 1ML VIAL/SYRINGE SQ SCH ×2 (17:33→22:00)
[2021-09-26 06:00] VITALS: BP 110/69
[2021-09-26] MEDS: HEPARIN SOD (PORCINE) 5000UNITS/ML 1ML VIAL/SYRINGE SQ SCH ×3 (06:00→20:45)
[2021-09-26] MEDS: OXAZEPAM 10MG CAP PO SCH ×3 (06:14→18:27)
[2021-09-26 07:18] LABS: BLOOD UREA NITROGEN 3 MG/DL (7-18); CALCIUM LEVEL 8.4 MG/DL (8.5-10.1); CARBON DIOXIDE LEVEL 26 MEQ/L (21-32); CHLORIDE LEVEL 106 MEQ/L (98-107); CREATININE FOR GFR 0.45 MG/DL (0.55-1.30); GLOMERULAR FILTRATION RATE > 60.0 (>60); GLUCOSE, FASTING 84 MG/DL (70-100); POTASSIUM SERUM 3.4 MEQ/L (3.5-5.1); SODIUM LEVEL 137 MEQ/L (136-145)
[2021-09-26] MEDS ORDERED: POTASSIUM CHLORIDE 10MEQ SR TABLET PO ONE (07:55)
[2021-09-26 08:12] LABS: BASO % 0.3 % (0.0-1.0); EOS # 0.1 10^3/uL (0.0-0.5); EOS % 1.4 % (0.0-3.0); HEMATOCRIT 30.8 % (36.0-47.0); HEMOGLOBIN 9.9 g/dl (12.0-15.5); LYMPH # 1.3 10^3/uL (1.5-5.0); LYMPH % 34.8 % (24.0-44.0); MEAN CORPUSCULAR HEMOGLOBIN 26.6 pg (27.0-33.0); MEAN CORPUSCULAR HGB CONC 32.1 g/dl (32.0-36.5); MEAN CORPUSCULAR VOLUME 82.8 fl (80.0-96.0); MONO # 0.3 10^3/uL (0.0-0.8); MONO % 8.1 % (2.0-8.0); NEUTROPHILS % 54.8 % (36.0-66.0); PLATELET COUNT, AUTOMATED 174 10^3/uL (150-450); RED BLOOD COUNT 3.72 10^6/uL (4.00-5.40); WHITE BLOOD COUNT 3.6 10^3/uL (4.0-10.0)
[2021-09-26] MEDS: FOLIC ACID 1 MG TAB PO SCH (13:23)
[2021-09-26] MEDS: THIAMINE 100 MG TAB PO SCH ×2 (13:23→22:00)
[2021-09-26] MEDS: CitaloPRAM (CeleXA) 20 MG TAB PO SCH (13:23)
[2021-09-26] MEDS: MULTIVITAMINS/MINERALS THERAP 1 TAB PO SCH (13:23)
[2021-09-26 14:00] VITALS: BP 115/73
[2021-09-26 21:00] VITALS: BP 114/74
[2021-09-26 21:18] VITALS: BP 114/74
[2021-09-27] MEDS: OXAZEPAM 10MG CAP PO SCH ×4 (00:35→21:03)
[2021-09-27 05:52] VITALS: BP 116/75
[2021-09-27] MEDS: HEPARIN SOD (PORCINE) 5000UNITS/ML 1ML VIAL/SYRINGE SQ SCH ×3 (06:00→21:04)
[2021-09-27 08:27] LABS: BASO % 0.5 % (0.0-1.0); EOS # 0.1 10^3/uL (0.0-0.5); EOS % 1.4 % (0.0-3.0); HEMATOCRIT 33.1 % (36.0-47.0); HEMOGLOBIN 10.2 g/dl (12.0-15.5); LYMPH # 1.4 10^3/uL (1.5-5.0); LYMPH % 33.7 % (24.0-44.0); MEAN CORPUSCULAR HEMOGLOBIN 25.4 pg (27.0-33.0); MEAN CORPUSCULAR HGB CONC 30.8 g/dl (32.0-36.5); MEAN CORPUSCULAR VOLUME 82.5 fl (80.0-96.0); MONO # 0.3 10^3/uL (0.0-0.8); MONO % 7.7 % (2.0-8.0); NEUTROPHILS # 2.3 10^3/uL (1.5-8.5); NEUTROPHILS % 56.2 % (36.0-66.0); PLATELET COUNT, AUTOMATED 189 10^3/uL (150-450); RED BLOOD COUNT 4.01 10^6/uL (4.00-5.40); WHITE BLOOD COUNT 4.2 10^3/uL (4.0-10.0)
[2021-09-27] MEDS: MULTIVITAMINS/MINERALS THERAP 1 TAB PO SCH (08:54)
[2021-09-27] MEDS: FOLIC ACID 1 MG TAB PO SCH (08:54)
[2021-09-27] MEDS: THIAMINE 100 MG TAB PO SCH ×2 (08:54→21:03)
[2021-09-27] MEDS: CitaloPRAM (CeleXA) 20 MG TAB PO SCH (08:54)
[2021-09-27 08:57] LABS: ALT/SGPT 93 U/L (12-78); BILIRUBIN,TOTAL 0.6 MG/DL (0.2-1.0); BLOOD UREA NITROGEN 4 MG/DL (7-18); CALCIUM LEVEL 8.7 MG/DL (8.5-10.1); CARBON DIOXIDE LEVEL 22 MEQ/L (21-32); CHLORIDE LEVEL 107 MEQ/L (98-107); CREATININE FOR GFR 0.45 MG/DL (0.55-1.30); GLOMERULAR FILTRATION RATE > 60.0 (>60); GLUCOSE, FASTING 82 MG/DL (70-100); MAGNESIUM LEVEL 2.2 MG/DL (1.8-2.4); SODIUM LEVEL 139 MEQ/L (136-145); TOTAL PROTEIN 6.4 GM/DL (6.4-8.2)
[2021-09-27 14:00] VITALS: BP 118/78
[2021-09-27 21:10] VITALS: BP 117/84
[2021-09-28] MEDS: HEPARIN SOD (PORCINE) 5000UNITS/ML 1ML VIAL/SYRINGE SQ SCH ×3 (05:39→21:01)
[2021-09-28] MEDS: OXAZEPAM 10MG CAP PO SCH ×3 (05:40→21:00)
[2021-09-28 05:42] VITALS: BP 108/69
[2021-09-28 08:16] LABS: BASO % 0.4 % (0.0-1.0); EOS # 0.1 10^3/uL (0.0-0.5); EOS % 1.4 % (0.0-3.0); HEMATOCRIT 34.5 % (36.0-47.0); HEMOGLOBIN 10.8 g/dl (12.0-15.5); LYMPH # 1.6 10^3/uL (1.5-5.0); LYMPH % 31.3 % (24.0-44.0); MEAN CORPUSCULAR HEMOGLOBIN 26.3 pg (27.0-33.0); MEAN CORPUSCULAR HGB CONC 31.3 g/dl (32.0-36.5); MEAN CORPUSCULAR VOLUME 84.1 fl (80.0-96.0); MONO # 0.4 10^3/uL (0.0-0.8); MONO % 7.7 % (2.0-8.0); NEUTROPHILS % 58.8 % (36.0-66.0); PLATELET COUNT, AUTOMATED 237 10^3/uL (150-450); WHITE BLOOD COUNT 5.1 10^3/uL (4.0-10.0)
[2021-09-28 08:51] LABS: ALBUMIN 3.1 GM/DL (3.2-5.2); ALT/SGPT 96 U/L (12-78); BILIRUBIN,TOTAL 0.5 MG/DL (0.2-1.0); BLOOD UREA NITROGEN 7 MG/DL (7-18); CALCIUM LEVEL 8.9 MG/DL (8.5-10.1); CARBON DIOXIDE LEVEL 25 MEQ/L (21-32); CHLORIDE LEVEL 106 MEQ/L (98-107); GLOMERULAR FILTRATION RATE > 60.0 (>60); GLUCOSE, FASTING 137 MG/DL (70-100); MAGNESIUM LEVEL 2.1 MG/DL (1.8-2.4); POTASSIUM SERUM 3.7 MEQ/L (3.5-5.1); SODIUM LEVEL 137 MEQ/L (136-145); TOTAL PROTEIN 6.4 GM/DL (6.4-8.2)
[2021-09-28] MEDS: FOLIC ACID 1 MG TAB PO SCH (09:58)
[2021-09-28] MEDS: CitaloPRAM (CeleXA) 20 MG TAB PO SCH (09:58)
[2021-09-28] MEDS: MULTIVITAMINS/MINERALS THERAP 1 TAB PO SCH (09:58)
[2021-09-28] MEDS: THIAMINE 100 MG TAB PO SCH ×2 (09:58→20:58)
[2021-09-28 14:00] VITALS: BP 104/67
[2021-09-28 20:55] VITALS: BP 128/91
[2021-09-29] MEDS: OXAZEPAM 10MG CAP PO SCH (05:15)
[2021-09-29 05:17] VITALS: BP 120/82
[2021-09-29] MEDS: HEPARIN SOD (PORCINE) 5000UNITS/ML 1ML VIAL/SYRINGE SQ SCH (05:34)
[2021-09-29 06:10] LABS: BASO % 0.6 % (0.0-1.0); EOS # 0.1 10^3/uL (0.0-0.5); EOS % 1.2 % (0.0-3.0); HEMATOCRIT 39.1 % (36.0-47.0); HEMOGLOBIN 11.9 g/dl (12.0-15.5); LYMPH # 2.1 10^3/uL (1.5-5.0); LYMPH % 42.1 % (24.0-44.0); MEAN CORPUSCULAR HEMOGLOBIN 25.5 pg (27.0-33.0); MEAN CORPUSCULAR HGB CONC 30.4 g/dl (32.0-36.5); MEAN CORPUSCULAR VOLUME 83.9 fl (80.0-96.0); MONO # 0.5 10^3/uL (0.0-0.8); NEUTROPHILS # 2.3 10^3/uL (1.5-8.5); NEUTROPHILS % 46.7 % (36.0-66.0); PLATELET COUNT, AUTOMATED 285 10^3/uL (150-450); RED BLOOD COUNT 4.66 10^6/uL (4.00-5.40)
[2021-09-29 06:53] LABS: ALBUMIN 3.5 GM/DL (3.2-5.2); ALT/SGPT 103 U/L (12-78); BILIRUBIN,TOTAL 0.6 MG/DL (0.2-1.0); BLOOD UREA NITROGEN 8 MG/DL (7-18); CALCIUM LEVEL 9.3 MG/DL (8.5-10.1); CARBON DIOXIDE LEVEL 25 MEQ/L (21-32); CHLORIDE LEVEL 106 MEQ/L (98-107); GLOMERULAR FILTRATION RATE > 60.0 (>60); GLUCOSE, FASTING 98 MG/DL (70-100); MAGNESIUM LEVEL 2.3 MG/DL (1.8-2.4); POTASSIUM SERUM 3.9 MEQ/L (3.5-5.1); SODIUM LEVEL 136 MEQ/L (136-145); TOTAL PROTEIN 7.3 GM/DL (6.4-8.2)
[2021-09-29] MEDS: FOLIC ACID 1 MG TAB PO SCH (10:02)
[2021-09-29] MEDS: MULTIVITAMINS/MINERALS THERAP 1 TAB PO SCH (10:02)
[2021-09-29] MEDS: CitaloPRAM (CeleXA) 20 MG TAB PO SCH (10:02)
[2021-09-29] MEDS ORDERED: OXAZEPAM 10MG CAP PO SCH (14:00)
== END 2021-09-29 12:05 | disposition left against medical advice (07) | DRG 280 ==
LOC: EDBD 16:18 → M ED 16:18 → M ED INP 09-25 01:03 → ENRESERV 09-25 01:38 → M MSPAV 09-25 02:32 → OBSVTOIN 09-28 14:34
PROVIDERS: ADMIT Internal Medicine; ATTEND Internal Medicine
DX: K70.10 Alcoholic hepatitis without ascites (principal); M62.82 Rhabdomyolysis; E87.6 Hypokalemia; Z79.899 Other long term (current) drug therapy; F10.239 Alcohol dependence with withdrawal, unspecified; G25.2 Other specified forms of tremor

== ENCOUNTER 2021-10-05 20:01 | Inpatient (IN) | payer OTHER ==
[~2021-10-05] VITALS: Ht 167.6 cm; Wt 69.3 kg
[~2021-10-05 20:01] MED LIST changes: +MEDR150I10 IM
[2021-10-05 20:37] LABS: BASO % 0.3 % (0.0-1.0); HEMATOCRIT 36.1 % (36.0-47.0); HEMOGLOBIN 11.7 g/dl (12.0-15.5); LYMPH # 1.2 10^3/uL (1.5-5.0); LYMPH % 16.5 % (24.0-44.0); MEAN CORPUSCULAR HEMOGLOBIN 26.2 pg (27.0-33.0); MEAN CORPUSCULAR HGB CONC 32.4 g/dl (32.0-36.5); MEAN CORPUSCULAR VOLUME 80.8 fl (80.0-96.0); MONO # 0.4 10^3/uL (0.0-0.8); MONO % 5.5 % (2.0-8.0); NEUTROPHILS # 5.5 10^3/uL (1.5-8.5); NEUTROPHILS % 77.4 % (36.0-66.0); PLATELET COUNT, AUTOMATED 265 10^3/uL (150-450); RED BLOOD COUNT 4.47 10^6/uL (4.00-5.40); WHITE BLOOD COUNT 7.1 10^3/uL (4.0-10.0)
[2021-10-05] MEDS ORDERED: ONDANSETRON 4MG 2ML VIAL IV ONE (20:45)
[2021-10-05] MEDS ORDERED: LORazepam 1 MG TAB PO STA (20:45)
[2021-10-05] MEDS ORDERED: NS 1,000 ML IV ONE (20:50)
[2021-10-05 20:57] LABS: CK-MB VALUE MASS 5.9 NG/ML (<3.6); MB/CK RELATIVE INDEX 0.71 (< OR =4)
[2021-10-05 21:04] LABS: ACETAMINOPHEN LEVEL < 2.0 UG/ML (10.0-30.0); ALBUMIN 3.4 GM/DL (3.2-5.2); ALT/SGPT 116 U/L (12-78); BILIRUBIN,DIRECT 0.2 MG/DL (0.0-0.2); BILIRUBIN,TOTAL 0.4 MG/DL (0.2-1.0); BLOOD UREA NITROGEN 2 MG/DL (7-18); CALCIUM LEVEL 7.7 MG/DL (8.5-10.1); CARBON DIOXIDE LEVEL 27 MEQ/L (21-32); CHLORIDE LEVEL 102 MEQ/L (98-107); CREATININE FOR GFR 0.82 MG/DL (0.55-1.30); ETHYL ALCOHOL (ETHANOL) 0.406 % (0.000-0.010); GLOMERULAR FILTRATION RATE > 60.0 (>60); GLUCOSE, FASTING 242 MG/DL (70-100); POTASSIUM SERUM 3.3 MEQ/L (3.5-5.1); SALICYLATE LEVEL < 1.7 MG/DL (5.0-30.0); SODIUM LEVEL 139 MEQ/L (136-145); TOTAL PROTEIN 7.2 GM/DL (6.4-8.2)
[2021-10-05] MEDS ORDERED: POTASSIUM CHLORIDE 10MEQ SR TABLET PO ONE (21:30)
[2021-10-05] MEDS ORDERED: NS 910 ML in IV 1 EA IV ONE (21:40)
[2021-10-05 22:38] LABS: AMPHETAMINES LEVEL URINE NEGATIVE (NEGATIVE); BARBITURATES URINE NEGATIVE (NEGATIVE); BENZODIAZEPINES URINE NEGATIVE (NEGATIVE); CANNABINOIDS URINE NEGATIVE (NEGATIVE); COCAINE METABOLITE URINE NEGATIVE (NEGATIVE); METHADONE URINE NEGATIVE (NEGATIVE); OPIATES URINE NEGATIVE (NEGATIVE); PHENCYCLIDINE URINE NEGATIVE (NEGATIVE)
[2021-10-06] MEDS ORDERED: NS 1,000 ML IV SCH (02:35)
[2021-10-06] MEDS ORDERED: NS 1,000 ML IV ONE (03:40)
[2021-10-06] MEDS ORDERED: OXAZEPAM 15MG CAP PO ONE ×2 (05:00→12:40)
[2021-10-06] MEDS ORDERED: LORazepam 2 MG TAB PO PRN (08:45)
[2021-10-06] MEDS ORDERED: FOLIC ACID 1 MG TAB PO SCH (09:00)
[2021-10-06] MEDS ORDERED: MULTIVITAMINS/MINERALS THERAP 1 TAB PO SCH (09:00)
[2021-10-06] MEDS ORDERED: THIAMINE 100 MG TAB PO SCH (09:00)
[2021-10-06 12:43] LABS: RSV AMPLIFICATION NEGATIVE (NEGATIVE)
[2021-10-06] MEDS ORDERED: ISOVUE-370 76% 100ML VIAL As Ordered ONE (13:05)
[2021-10-06] MEDS ORDERED: ACETAMINOPHEN TAB 650MG DOSE (2X325MG) PO PRN (13:30)
[2021-10-06] MEDS ORDERED: HOME MED LIST COMPLETE! XX SCH (13:35)
[2021-10-06 15:09] LABS: INR 1.16; PROTHROMBIN TIME 15.2 SECONDS (12.7-14.5)
[2021-10-06 15:30] VITALS: BP 126/84
[2021-10-06] MEDS: OXAZEPAM 15MG CAP PO SCH ×3 (15:40→23:28)
[2021-10-06] MEDS: LR 1,000 ML IV SCH ×2 (15:51→23:29)
[2021-10-06 16:00] VITALS: BP 126/84
[2021-10-06 19:41] VITALS: BP 128/86
[2021-10-06] MEDS: LORazepam 2 MG TAB PO PRN ×2 (19:53→23:28)
[2021-10-06 20:00] VITALS: BP 128/86
[2021-10-06 21:02] VITALS: BP 122/85
[2021-10-06] MEDS: ENOXAPARIN 40MG/0.4ML SYRINGE (J1650 PER 10MG) SC SCH (21:08)
[2021-10-06 23:26] VITALS: BP 132/86
[2021-10-07] VITALS (12 sets, daily range): BP systolic 112–136; BP diastolic 69–88
[2021-10-07] MEDS ORDERED: METOCLOPRAMIDE INJ 10MG/2ML VIAL (J2765 PER 1) IV PRN (01:55)
[2021-10-07] MEDS: LORazepam 2 MG TAB PO PRN ×3 (02:01→20:40)
[2021-10-07] MEDS ORDERED: ONDANSETRON 4MG 2ML VIAL IV ONE (02:05)
[2021-10-07] MEDS: OXAZEPAM 15MG CAP PO SCH ×4 (05:50→23:26)
[2021-10-07 05:51] LABS: HEMATOCRIT 30.3 % (36.0-47.0); HEMOGLOBIN 9.8 g/dl (12.0-15.5); MEAN CORPUSCULAR HEMOGLOBIN 26.3 pg (27.0-33.0); MEAN CORPUSCULAR HGB CONC 32.3 g/dl (32.0-36.5); MEAN CORPUSCULAR VOLUME 81.5 fl (80.0-96.0); PLATELET COUNT, AUTOMATED 159 10^3/uL (150-450); RED BLOOD COUNT 3.72 10^6/uL (4.00-5.40); WHITE BLOOD COUNT 9.7 10^3/uL (4.0-10.0)
[2021-10-07 06:13] LABS: ALBUMIN 2.8 GM/DL (3.2-5.2); ALT/SGPT 78 U/L (12-78); BILIRUBIN,TOTAL 1.1 MG/DL (0.2-1.0); BLOOD UREA NITROGEN 3 MG/DL (7-18); CALCIUM LEVEL 8.3 MG/DL (8.5-10.1); CARBON DIOXIDE LEVEL 27 MEQ/L (21-32); CHLORIDE LEVEL 103 MEQ/L (98-107); CREATININE FOR GFR 0.42 MG/DL (0.55-1.30); GLOMERULAR FILTRATION RATE > 60.0 (>60); GLUCOSE, FASTING 78 MG/DL (70-100); POTASSIUM SERUM 3.1 MEQ/L (3.5-5.1); SODIUM LEVEL 138 MEQ/L (136-145); TOTAL PROTEIN 5.6 GM/DL (6.4-8.2)
[2021-10-07] MEDS ORDERED: POTASSIUM CHLORIDE 10% LIQ 20 MEQ/15 ML UDC PO ONE (06:20)
[2021-10-07] MEDS: LR 1,000 ML IV SCH ×3 (06:33→23:25)
[2021-10-07] MEDS ORDERED: POTASSIUM CHLORIDE 10MEQ SR TABLET PO ONE (06:50)
[2021-10-07] MEDS: CitaloPRAM (CeleXA) 20 MG TAB PO SCH (08:29)
[2021-10-07] MEDS: ENOXAPARIN 40MG/0.4ML SYRINGE (J1650 PER 10MG) SC SCH (21:00)
[2021-10-08] VITALS: BP 121/74
[2021-10-08 03:41] VITALS: BP 119/82
[2021-10-08] MEDS: LORazepam 2 MG TAB PO PRN (03:45)
[2021-10-08 06:00] VITALS: BP 119/81
[2021-10-08] MEDS: OXAZEPAM 15MG CAP PO SCH ×2 (06:33→12:00)
[2021-10-08 06:42] LABS: HEMATOCRIT 31.8 % (36.0-47.0); HEMOGLOBIN 9.8 g/dl (12.0-15.5); MEAN CORPUSCULAR HEMOGLOBIN 25.5 pg (27.0-33.0); MEAN CORPUSCULAR HGB CONC 30.8 g/dl (32.0-36.5); MEAN CORPUSCULAR VOLUME 82.6 fl (80.0-96.0); PLATELET COUNT, AUTOMATED 161 10^3/uL (150-450); RED BLOOD COUNT 3.85 10^6/uL (4.00-5.40); WHITE BLOOD COUNT 7.3 10^3/uL (4.0-10.0)
[2021-10-08 07:23] LABS: ALBUMIN 2.8 GM/DL (3.2-5.2); ALT/SGPT 66 U/L (12-78); BILIRUBIN,TOTAL 0.8 MG/DL (0.2-1.0); BLOOD UREA NITROGEN 3 MG/DL (7-18); CALCIUM LEVEL 8.6 MG/DL (8.5-10.1); CARBON DIOXIDE LEVEL 23 MEQ/L (21-32); CHLORIDE LEVEL 108 MEQ/L (98-107); GLOMERULAR FILTRATION RATE > 60.0 (>60); GLUCOSE, FASTING 88 MG/DL (70-100); POTASSIUM SERUM 3.6 MEQ/L (3.5-5.1); SODIUM LEVEL 139 MEQ/L (136-145)
[2021-10-08] MEDS: LR 1,000 ML IV SCH (07:28)
[2021-10-08] MEDS ORDERED: POTASSIUM CHLORIDE 10MEQ SR TABLET PO ONE (07:45)
[2021-10-08 08:00] VITALS: BP 106/65
[2021-10-08 08:15] VITALS: BP 106/65
[2021-10-08] MEDS: CitaloPRAM (CeleXA) 20 MG TAB PO SCH (08:58)
== END 2021-10-08 12:46 | disposition home or self-care (01) | DRG 775 ==
LOC: EDBD 20:01 → M ED 20:01 → M ED INP 10-06 13:29 → ENRESERV 10-06 13:46 → M PCU 10-06 15:26
PROVIDERS: ADMIT Internal Medicine; ATTEND Family Medicine
DX: F10.239 Alcohol dependence with withdrawal, unspecified (principal); Z98.84 Bariatric surgery status; F10.221 Alcohol dependence with intoxication delirium; M62.82 Rhabdomyolysis; E87.2 Acidosis; K70.10 Alcoholic hepatitis without ascites; E87.6 Hypokalemia; F32.A Depression, unspecified; E86.0 Dehydration; Z20.822 Contact with and (suspected) exposure to COVID-19

== ENCOUNTER 2022-05-03 16:09 | Emergency (ER) | payer OTHER ==
[~2022-05-03] VITALS: Ht 162.6 cm; Wt 75.1 kg
[2022-05-03] MEDS ORDERED: MULTIVITAMIN -ADULT INJECTION 10 ML, THIAMINE INJection 100 MG, FOLIC ACID 1 MG in NS 1... IV ONE (16:35)
[2022-05-03 16:51] LABS: HEMATOCRIT 43.2 % (36.0-47.0); MEAN CORPUSCULAR HEMOGLOBIN 28.7 pg (27.0-33.0); MEAN CORPUSCULAR HGB CONC 32.4 g/dl (32.0-36.5); MEAN CORPUSCULAR VOLUME 88.7 fl (80.0-96.0); PLATELET COUNT, AUTOMATED 349 10^3/uL (150-450); RED BLOOD COUNT 4.87 10^6/uL (4.00-5.40); WHITE BLOOD COUNT 7.9 10^3/uL (4.0-10.0)
[2022-05-03 17:09] LABS: SALICYLATE LEVEL < 3.0 MG/DL (<30)
[2022-05-03 17:10] LABS: ACETAMINOPHEN LEVEL < 2.0 UG/ML (10.0-20.0)
[2022-05-03 17:22] LABS: ALBUMIN 3.8 G/DL (3.2-5.2); ALKALINE PHOSPHATASE 118 U/L (46-116); ALT/SGPT 51 U/L (7.0-40); AST/SGOT 72 U/L (<34); BILIRUBIN,DIRECT 0.3 MG/DL (<0.4); BILIRUBIN,TOTAL 0.8 MG/DL (0.3-1.2); BLOOD UREA NITROGEN < 5 MG/DL (9-23); CALCIUM LEVEL 8.2 MG/DL (8.5-10.1); CARBON DIOXIDE LEVEL 25 MMOL/L (20-31); CHLORIDE LEVEL 105 MMOL/L (98-107); CPK CREATINE PHOSPHOKINASE 960 U/L (34-145); CREATININE FOR GFR 0.51 MG/DL (0.55-1.30); ETHYL ALCOHOL (ETHANOL) 0.388 % (0.000-0.010); GLOMERULAR FILTRATION RATE > 60.0 (>60); GLUCOSE, FASTING 99 MG/DL (60-100); MAGNESIUM LEVEL 2.1 MG/DL (1.8-2.4); POTASSIUM SERUM 3.5 MMOL/L (3.5-5.1); SODIUM LEVEL 144 MMOL/L (136-145); THYROID STIMULATING HORMONE 1.193 uIU/ML (0.55-4.78); TOTAL PROTEIN 6.7 G/DL (5.7-8.2)
[2022-05-03 17:33] LABS: HCG, SERUM QUALITATIVE NEGATIVE (NEGATIVE)
[2022-05-03 17:51] LABS: RSV AMPLIFICATION NEGATIVE (NEGATIVE)
[2022-05-03] MEDS ORDERED: TRAZ-252 PO (18:38)
[2022-05-03] MEDS ORDERED: MED REC COMMENT (18:40)
[2022-05-03] MEDS ORDERED: NS 500 ML IV ONE (18:45)
[2022-05-03] MEDS ORDERED: HOME MED LIST COMPLETE! XX SCH (18:45)
[2022-05-04] VITALS: BP 112/75
== END 2022-05-04 00:59 | disposition home or self-care (01) ==
LOC: EDUNIT# 16:09 → EDBD 16:09 → M ED 16:09
DX: F10.129 Alcohol abuse with intoxication, unspecified (principal); I10 Essential (primary) hypertension; Z98.84 Bariatric surgery status; Z79.899 Other long term (current) drug therapy
CPT/HCPCS: 70450; 80048; 80076; 80143; 82077; 82550; 83735; 84443; 84703; 85027; 87631; 93005; 96361; 96365; 96366; 99285; J3411

== ENCOUNTER 2022-06-22 20:44 | Emergency (ER) | payer OTHER ==
[~2022-06-22] VITALS: Ht 162.6 cm; Wt 75.5 kg
[2022-06-22 21:43] LABS: BASO % 0.5 % (0.0-1.0); EOS % 0.5 % (0.0-3.0); HEMATOCRIT 40.6 % (36.0-47.0); HEMOGLOBIN 13.6 g/dl (12.0-15.5); LYMPH # 2.4 10^3/uL (1.5-5.0); LYMPH % 38.3 % (24.0-44.0); MEAN CORPUSCULAR HEMOGLOBIN 30.6 pg (27.0-33.0); MEAN CORPUSCULAR HGB CONC 33.5 g/dl (32.0-36.5); MEAN CORPUSCULAR VOLUME 91.4 fl (80.0-96.0); MONO # 0.5 10^3/uL (0.0-0.8); MONO % 8.1 % (2.0-8.0); NEUTROPHILS # 3.2 10^3/uL (1.5-8.5); NEUTROPHILS % 52.1 % (36.0-66.0); PLATELET COUNT, AUTOMATED 279 10^3/uL (150-450); RED BLOOD COUNT 4.44 10^6/uL (4.00-5.40); WHITE BLOOD COUNT 6.2 10^3/uL (4.0-10.0)
[2022-06-22 22:18] LABS: LIPASE 28 U/L (12-53)
[2022-06-22 22:20] LABS: ACETAMINOPHEN LEVEL < 2.0 UG/ML (10.0-20.0); SALICYLATE LEVEL < 3.0 MG/DL (<30)
[2022-06-22 22:22] LABS: THYROID STIMULATING HORMONE 0.966 uIU/ML (0.55-4.78)
[2022-06-22 22:30] LABS: HCG, SERUM QUALITATIVE NEGATIVE (NEGATIVE)
[2022-06-22 22:31] LABS: ALBUMIN 3.4 G/DL (3.2-5.2); ALKALINE PHOSPHATASE 75 U/L (46-116); ALT/SGPT 13 U/L (7.0-40); AST/SGOT 55 U/L (<34); BILIRUBIN,DIRECT 0.1 MG/DL (<0.4); BILIRUBIN,TOTAL 0.2 MG/DL (0.3-1.2); BLOOD UREA NITROGEN 7 MG/DL (9-23); CALCIUM LEVEL 7.5 MG/DL (8.5-10.1); CARBON DIOXIDE LEVEL 25 MMOL/L (20-31); CHLORIDE LEVEL 113 MMOL/L (98-107); CREATININE FOR GFR 0.59 MG/DL (0.55-1.30); GLOMERULAR FILTRATION RATE > 60.0 (>60); GLUCOSE, FASTING 74 MG/DL (60-100); POTASSIUM SERUM 3.4 MMOL/L (3.5-5.1); SODIUM LEVEL 150 MMOL/L (136-145); TOTAL PROTEIN 6.1 G/DL (5.7-8.2)
[2022-06-23] MEDS ORDERED: POTASSIUM CHLORIDE 10MEQ SR TABLET PO ONE
[2022-06-23 02:30] VITALS: BP 92/58
[2022-06-23] MEDS ORDERED: DISU1TAB6 (02:49)
[2022-06-23] MEDS ORDERED: ACNE1GEL2 (02:49)
== END 2022-06-23 03:15 | disposition home or self-care (01) ==
LOC: M ED 20:44
DX: F10.129 Alcohol abuse with intoxication, unspecified (principal); K70.10 Alcoholic hepatitis without ascites; Z98.84 Bariatric surgery status

== ENCOUNTER 2022-10-10 17:36 | Inpatient (IN) | payer OTHER ==
[~2022-10-10] VITALS: Ht 167.6 cm; Wt 73.1 kg
[~2022-10-10 17:36] MED LIST changes: +ACNE1GEL2; +DISU1TAB6
[2022-10-10] MEDS ORDERED: NS 1,000 ML IV ONE ×2 (18:15→22:25)
[2022-10-10 18:44] LABS: HEMATOCRIT 44.3 % (36.0-47.0); MEAN CORPUSCULAR HEMOGLOBIN 31.1 pg (27.0-33.0); MEAN CORPUSCULAR HGB CONC 33.9 g/dl (32.0-36.5); MEAN CORPUSCULAR VOLUME 91.9 fl (80.0-96.0); PLATELET COUNT, AUTOMATED 275 10^3/uL (150-450); RED BLOOD COUNT 4.82 10^6/uL (4.00-5.40); WHITE BLOOD COUNT 5.9 10^3/uL (4.0-10.0)
[2022-10-10 19:05] LABS: ACETAMINOPHEN LEVEL < 2.0 UG/ML (10.0-20.0); SALICYLATE LEVEL < 3.0 MG/DL (<30)
[2022-10-10 19:19] LABS: ALBUMIN 4.1 G/DL (3.2-5.2); ALKALINE PHOSPHATASE 92 U/L (46-116); ALT/SGPT 43 U/L (7.0-40); AST/SGOT 84 U/L (<34); BILIRUBIN,DIRECT 0.2 MG/DL (<0.4); BILIRUBIN,TOTAL 0.5 MG/DL (0.3-1.2); BLOOD UREA NITROGEN < 5 MG/DL (9-23); CALCIUM LEVEL 8.8 MG/DL (8.5-10.1); CARBON DIOXIDE LEVEL 25 MMOL/L (20-31); CHLORIDE LEVEL 105 MMOL/L (98-107); CREATININE FOR GFR 0.54 MG/DL (0.55-1.30); ETHYL ALCOHOL (ETHANOL) 0.419 % (0.000-0.010); GLOMERULAR FILTRATION RATE > 60.0 (>60); GLUCOSE, FASTING 113 MG/DL (60-100); HCG, SERUM QUANTITATIVE < 2.6 MIU/ML (<4.2); POTASSIUM SERUM 3.8 MMOL/L (3.5-5.1); SODIUM LEVEL 143 MMOL/L (136-145); THYROID STIMULATING HORMONE 0.815 uIU/ML (0.55-4.78); TOTAL PROTEIN 7.3 G/DL (5.7-8.2)
[2022-10-10] MEDS ORDERED: MEDR150I12 INJ (19:23)
[2022-10-10] MEDS ORDERED: HOME MED LIST COMPLETE! XX SCH (19:25)
[2022-10-10] MEDS ORDERED: NS 1,000 ML in IV 1 EA IV ONE (20:35)
[2022-10-10] MEDS ORDERED: ONDANSETRON 4MG 2ML VIAL IV ONE (21:25)
[2022-10-10 22:27] LABS: AMPHETAMINES LEVEL URINE NEGATIVE (NEGATIVE); BARBITURATES URINE NEGATIVE (NEGATIVE); BENZODIAZEPINES URINE NEGATIVE (NEGATIVE)
[2022-10-10 22:28] LABS: CANNABINOIDS URINE NEGATIVE (NEGATIVE); COCAINE METABOLITE URINE NEGATIVE (NEGATIVE); METHADONE URINE NEGATIVE (NEGATIVE); OPIATES URINE NEGATIVE (NEGATIVE); PHENCYCLIDINE URINE NEGATIVE (NEGATIVE)
[2022-10-10] MEDS ORDERED: LORazepam 2 MG TAB PO STA (23:09)
[2022-10-10] MEDS ORDERED: LORazepam 2 MG TAB PO PRN (23:40)
[2022-10-10] MEDS ORDERED: BACITRACIN OINTMENT 30GM TUBE TOP ONE (23:40)
[2022-10-11] VITALS (17 sets, daily range): BP systolic 109–140; BP diastolic 69–92; TEMP 98.7–99.2; O2SAT 94–97
[2022-10-11] MEDS ORDERED: TRUVADA 200MG/300MG TABLET PO SCH
[2022-10-11] MEDS ORDERED: ONDANSETRON 4MG 2ML VIAL IV ONE (05:30)
[2022-10-11] MEDS ORDERED: LORazepam 2 MG/ML 1ML VIAL IV STA ×5 (07:10→13:42)
[2022-10-11] MEDS ORDERED: ULIPRISTAL ACETATE 30MG TAB (ELLA) PO ONE (07:15)
[2022-10-11] MEDS ORDERED: EXPOSURE KIT-ADULT 7 DAY SUPPLY PO ONE (07:15)
[2022-10-11] MEDS ORDERED: metroNIDAZOLE (FLAGYL) 500MG TABLET PO ONE (07:15)
[2022-10-11] MEDS ORDERED: cefTRIAXone 500MG VIAL IM ONE (07:15)
[2022-10-11] MEDS ORDERED: AZITHROMYCIN 250MG TABLET PO ONE (07:15)
[2022-10-11] MEDS ORDERED: LIDOCAINE 1% SDV 5ML VIAL DILUENT ONE (07:15)
[2022-10-11] MEDS ORDERED: DOXYCYCLINE HYCLATE 100MG TABLET PO ONE (07:40)
[2022-10-11 08:00] LABS: HEPATITIS B SURFACE ANTIBODY NEGATIVE (POSITIVE)
[2022-10-11] MEDS ORDERED: RALTEGRAVIR 400 MG TAB (ISENTRESS) PO ONE (08:00)
[2022-10-11] MEDS ORDERED: TRUVADA 200MG/300MG TABLET PO ONE (08:00)
[2022-10-11 08:25] LABS: HIV 1&2 SCREEN NEGATIVE (NEGATIVE)
[2022-10-11 08:34] LABS: HEPATITIS C VIRUS ABY INDEX 0.07 INDEX (<0.8)
[2022-10-11 08:50] LABS: HCG, SERUM QUALITATIVE NEGATIVE (NEGATIVE)
[2022-10-11] MEDS ORDERED: FOLIC ACID 1MG TAB PO SCH (09:00)
[2022-10-11] MEDS ORDERED: THIAMINE 100 MG TAB PO SCH (09:00)
[2022-10-11] MEDS ORDERED: MULTIVITAMINS/MINERALS THERAP 1 TAB PO SCH (09:00)
[2022-10-11] MEDS ORDERED: D5W/0.45% SODIUM CHLORIDE 1,000 ML IV ONE (09:05)
[2022-10-11 13:18] LABS: GC DNA AMPLIFICATION NEGATIVE (NEGATIVE)
[2022-10-11] MEDS: HEPARIN SOD (PORCINE) 5000UNITS/ML 1ML VIAL/SYRINGE SQ SCH ×2 (15:38→22:00)
[2022-10-11] MEDS: LR 1,000 ML IV SCH ×2 (15:38→22:22)
[2022-10-11] MEDS: dexmedeTOMidine 200 MCG in IV 1 EA IV SCH ×2 (15:39→22:19)
[2022-10-11] MEDS: DOXYCYCLINE HYCLATE 100 MG in D5W MINI-BAG PLUS 100 ML IV SCH (20:29)
[2022-10-11] MEDS: RALTEGRAVIR 400 MG TAB (ISENTRESS) PO SCH (20:32)
[2022-10-11] MEDS: CHLORHEXIDINE GLUCONATE 0.12 % 15ML UDC (PERIDEX ORAL RINSE) MT SCH (20:33)
[2022-10-11] MEDS: BACITRACIN OINTMENT 30GM TUBE TOP SCH (20:33)
[2022-10-11] MEDS ORDERED: RALTEGRAVIR 400 MG TAB (ISENTRESS) PO SCH ×2 (21:00)
[2022-10-12] VITALS (23 sets, daily range): BP systolic 108–154; BP diastolic 73–96; TEMP 98.1–100.4; O2SAT 93–100
[2022-10-12] MEDS: LR 1,000 ML IV SCH ×2 (03:10→10:00)
[2022-10-12] MEDS: LORazepam 2 MG/ML 1ML VIAL IV PRN ×4 (04:20→20:49)
[2022-10-12 05:24] LABS: ETHYL ALCOHOL (ETHANOL) 0.003 % (0.000-0.010)
[2022-10-12] MEDS: HEPARIN SOD (PORCINE) 5000UNITS/ML 1ML VIAL/SYRINGE SQ SCH ×3 (06:00→22:00)
[2022-10-12 06:47] LABS: HEMATOCRIT 37.4 % (36.0-47.0); MEAN CORPUSCULAR HEMOGLOBIN 31.3 pg (27.0-33.0); MEAN CORPUSCULAR HGB CONC 33.2 g/dl (32.0-36.5); MEAN CORPUSCULAR VOLUME 94.4 fl (80.0-96.0); PLATELET COUNT, AUTOMATED 162 10^3/uL (150-450); RED BLOOD COUNT 3.96 10^6/uL (4.00-5.40); WHITE BLOOD COUNT 6.2 10^3/uL (4.0-10.0)
[2022-10-12 06:54] LABS: HEMOGLOBIN 12.4 g/dl (12.0-15.5)
[2022-10-12 07:06] LABS: ALKALINE PHOSPHATASE 82 U/L (46-116); ALT/SGPT 31 U/L (7.0-40); AST/SGOT 49 U/L (<34); BILIRUBIN,TOTAL 1.3 MG/DL (0.3-1.2); BLOOD UREA NITROGEN < 5 MG/DL (9-23); CALCIUM LEVEL 8.6 MG/DL (8.5-10.1); CARBON DIOXIDE LEVEL 25 MMOL/L (20-31); CHLORIDE LEVEL 105 MMOL/L (98-107); CREATININE FOR GFR 0.52 MG/DL (0.55-1.30); GLOMERULAR FILTRATION RATE > 60.0 (>60); GLUCOSE, FASTING 86 MG/DL (60-100); MAGNESIUM LEVEL 1.6 MG/DL (1.8-2.4); POTASSIUM SERUM 3.5 MMOL/L (3.5-5.1); SODIUM LEVEL 139 MMOL/L (136-145); TOTAL PROTEIN 5.7 G/DL (5.7-8.2)
[2022-10-12] MEDS: DOXYCYCLINE HYCLATE 100 MG in D5W MINI-BAG PLUS 100 ML IV SCH (08:38)
[2022-10-12] MEDS: TRUVADA 200MG/300MG TABLET PO SCH (08:39)
[2022-10-12] MEDS: FOLIC ACID 1 MG in NS 50 ML IV SCH (08:39)
[2022-10-12] MEDS: CHLORHEXIDINE GLUCONATE 0.12 % 15ML UDC (PERIDEX ORAL RINSE) MT SCH (08:39)
[2022-10-12] MEDS: BACITRACIN OINTMENT 30GM TUBE TOP SCH ×2 (08:40→20:50)
[2022-10-12] MEDS: RALTEGRAVIR 400 MG TAB (ISENTRESS) PO SCH ×3 (09:00→20:49)
[2022-10-12] MEDS ORDERED: TRUVADA 200MG/300MG TABLET PO SCH (09:00)
[2022-10-12] MEDS ORDERED: THIAMINE 200MG 2ML VIAL IM SCH (09:00)
[2022-10-12] MEDS ORDERED: MAG SULF 1GM/100ML (MAG RUN) 1 GM in IV 1 EA IV ONE (09:20)
[2022-10-12] MEDS ORDERED: MAGNESIUM OXIDE 400MG TAB (MAG-OX) PO ONE (09:20)
[2022-10-12] MEDS ORDERED: ACETAMINOPHEN TAB 650MG DOSE (2X325MG) PO PRN (09:20)
[2022-10-12] MEDS: THIAMINE 200MG 2ML VIAL IV SCH (09:59)
[2022-10-12] MEDS: OXAZEPAM 10MG CAP PO SCH ×2 (12:41→17:43)
[2022-10-12] MEDS: DOXYCYCLINE HYCLATE 100MG TABLET PO SCH (20:49)
[2022-10-13] MEDS: OXAZEPAM 10MG CAP PO SCH ×2 (00:05→06:37)
[2022-10-13 04:00] VITALS: BP 126/85; TEMP 97.9; O2SAT 97
[2022-10-13 04:43] LABS: HEMATOCRIT 39.7 % (36.0-47.0); HEMOGLOBIN 13.2 g/dl (12.0-15.5); MEAN CORPUSCULAR HEMOGLOBIN 31.1 pg (27.0-33.0); MEAN CORPUSCULAR HGB CONC 33.2 g/dl (32.0-36.5); MEAN CORPUSCULAR VOLUME 93.6 fl (80.0-96.0); PLATELET COUNT, AUTOMATED 156 10^3/uL (150-450); RED BLOOD COUNT 4.24 10^6/uL (4.00-5.40); WHITE BLOOD COUNT 6.6 10^3/uL (4.0-10.0)
[2022-10-13 05:06] LABS: BLOOD UREA NITROGEN < 5 MG/DL (9-23); CALCIUM LEVEL 8.8 MG/DL (8.5-10.1); CARBON DIOXIDE LEVEL 24 MMOL/L (20-31); CHLORIDE LEVEL 106 MMOL/L (98-107); CREATININE FOR GFR 0.46 MG/DL (0.55-1.30); GLOMERULAR FILTRATION RATE > 60.0 (>60); GLUCOSE, FASTING 87 MG/DL (60-100); POTASSIUM SERUM 3.6 MMOL/L (3.5-5.1); SODIUM LEVEL 141 MMOL/L (136-145)
[2022-10-13] MEDS: HEPARIN SOD (PORCINE) 5000UNITS/ML 1ML VIAL/SYRINGE SQ SCH ×2 (06:00→14:12)
[2022-10-13 08:00] VITALS: BP 125/86; TEMP 97.4; O2SAT 98
[2022-10-13] MEDS: DOXYCYCLINE HYCLATE 100MG TABLET PO SCH (09:46)
[2022-10-13] MEDS: TRUVADA 200MG/300MG TABLET PO SCH (09:47)
[2022-10-13] MEDS: THIAMINE 200MG 2ML VIAL IV SCH (09:47)
[2022-10-13] MEDS: FOLIC ACID 1 MG in NS 50 ML IV SCH (09:47)
[2022-10-13] MEDS: BACITRACIN OINTMENT 30GM TUBE TOP SCH (09:47)
[2022-10-13] MEDS: RALTEGRAVIR 400 MG TAB (ISENTRESS) PO SCH (09:47)
[2022-10-13 12:00] VITALS: BP 139/103; TEMP 98.6; O2SAT 95
[2022-10-13] MEDS: OXAZEPAM 15MG CAP PO SCH ×2 (12:29→16:12)
[2022-10-13 14:42] VITALS: BP 146/70; TEMP 97.4; O2SAT 96
[2022-10-13] MEDS: LORazepam 2 MG/ML 1ML VIAL IV PRN (15:41)
[2022-10-13] MEDS ORDERED: OXAZEPAM 15MG CAP PO ONE (15:55)
== END 2022-10-13 17:04 | disposition left against medical advice (07) | DRG 770 ==
LOC: M ED 17:36 → EDBD 17:36 → M ED INP 10-11 13:42 → M ICU 10-11 14:58
PROVIDERS: ADMIT Internal Medicine Critical Care Medicine; ATTEND Family Medicine
DX: F10.231 Alcohol dependence with withdrawal delirium (principal); F10.220 Alcohol dependence with intoxication, uncomplicated; F41.9 Anxiety disorder, unspecified; T74.21XA Adult sexual abuse, confirmed, initial encounter; R74.01 Elevation of levels of liver transaminase levels; R00.1 Bradycardia, unspecified; T20.06XA Burn of unspecified degree of forehead and cheek, initial encounter; F32.A Depression, unspecified; Z79.899 Other long term (current) drug therapy; Z20.822 Contact with and (suspected) exposure to COVID-19; Y07.9 Unspecified perpetrator of maltreatment and neglect

== ENCOUNTER 2022-10-14 18:49 | Emergency (ER) | payer OTHER ==
[~2022-10-14 18:49] MED LIST changes: -MEDR150I10 IM; +MEDR150I12 INJ; +MEDR150I13 IM
[2022-10-14] MEDS ORDERED: THIAMINE 200MG 2ML VIAL IM ONE (19:00)
[2022-10-14] MEDS ORDERED: NS 1,000 ML IV ONE (19:00)
[2022-10-14 19:01] VITALS: TEMP 98.6
[2022-10-14 19:04] VITALS: BP 119/85; O2SAT 96
[2022-10-14 19:54] LABS: BLOOD UREA NITROGEN < 5 MG/DL (9-23); CALCIUM LEVEL 8.5 MG/DL (8.5-10.1); CARBON DIOXIDE LEVEL 20 MMOL/L (20-31); CHLORIDE LEVEL 111 MMOL/L (98-107); CREATININE FOR GFR 0.49 MG/DL (0.55-1.30); GLOMERULAR FILTRATION RATE > 60.0 (>60); GLUCOSE, FASTING 95 MG/DL (60-100); POTASSIUM SERUM 3.6 MMOL/L (3.5-5.1); SODIUM LEVEL 145 MMOL/L (136-145)
[2022-10-15] MEDS ORDERED: C 50TAB PO (08:00)
[2022-10-15] MEDS ORDERED: VITMTA PO (08:00)
[2022-10-15] MEDS ORDERED: VITA100093 PO (08:00)
[2022-10-15] MEDS ORDERED: VITA500T73 PO (08:00)
== END 2022-10-14 20:48 | disposition left against medical advice (07) ==
LOC: M ED 18:49
DX: F10.129 Alcohol abuse with intoxication, unspecified (principal); Z79.899 Other long term (current) drug therapy
CPT/HCPCS: 70450; 80048; 96372; 99284; 99285; J3411

== ENCOUNTER 2022-10-14 22:54 | Observation (INO) | payer OTHER ==
[~2022-10-14] VITALS: Ht 167.6 cm; Wt 76.4 kg
[2022-10-15] MEDS ORDERED: NS 1,000 ML IV ONE ×2 (01:25→03:35)
[2022-10-15] MEDS ORDERED: LORazepam 2 MG/ML 1ML VIAL IV STA ×2 (01:36→02:38)
[2022-10-15 01:41] LABS: VENOUS BASE EXCESS -4.6 (-2.0-2.0); VENOUS HCO3 19.6 MMOL/L (23.0-27.0); VENOUS O2 SATURATION 73.6 % (60.0-80.0); VENOUS PARTIAL PRESSURE CO2 33.8 mmHg (38.0-50.0); VENOUS PARTIAL PRESSURE O2 40.9 mmHg (30.0-50.0); VENOUS PH 7.382 UNITS (7.330-7.430); VENOUS STANDARD HCO3 20.2 MMOL/L; VENOUS TOTAL CO2 20.7 MMOL/L (24.0-28.0)
[2022-10-15 01:47] LABS: BASO % 0.2 % (0.0-1.0); EOS % 0.2 % (0.0-3.0); HEMATOCRIT 38.9 % (36.0-47.0); HEMOGLOBIN 13.2 g/dl (12.0-15.5); LYMPH # 2.6 10^3/uL (1.5-5.0); LYMPH % 24.2 % (24.0-44.0); MEAN CORPUSCULAR HEMOGLOBIN 31.4 pg (27.0-33.0); MEAN CORPUSCULAR HGB CONC 33.9 g/dl (32.0-36.5); MEAN CORPUSCULAR VOLUME 92.4 fl (80.0-96.0); MONO # 0.8 10^3/uL (0.0-0.8); MONO % 7.6 % (2.0-8.0); NEUTROPHILS # 7.1 10^3/uL (1.5-8.5); PLATELET COUNT, AUTOMATED 173 10^3/uL (150-450); RED BLOOD COUNT 4.21 10^6/uL (4.00-5.40); WHITE BLOOD COUNT 10.6 10^3/uL (4.0-10.0)
[2022-10-15] MEDS ORDERED: D5W/0.9% SODIUM CHLORIDE 1,000 ML IV ONE (02:05)
[2022-10-15 02:06] LABS: OSMOLALITY SERUM 308 MOSM/KG (275-295)
[2022-10-15 02:09] LABS: HCG, SERUM QUALITATIVE NEGATIVE (NEGATIVE)
[2022-10-15 02:10] LABS: ETHYL ALCOHOL (ETHANOL) 0.159 % (0.000-0.010)
[2022-10-15 02:23] LABS: AMPHETAMINES LEVEL URINE NEGATIVE (NEGATIVE)
[2022-10-15 02:24] LABS: BARBITURATES URINE NEGATIVE (NEGATIVE); BENZODIAZEPINES URINE NEGATIVE (NEGATIVE); CANNABINOIDS URINE NEGATIVE (NEGATIVE); COCAINE METABOLITE URINE NEGATIVE (NEGATIVE); METHADONE URINE NEGATIVE (NEGATIVE); OPIATES URINE NEGATIVE (NEGATIVE); PHENCYCLIDINE URINE NEGATIVE (NEGATIVE)
[2022-10-15] MEDS ORDERED: LORazepam 2 MG TAB PO PRN (02:30)
[2022-10-15] MEDS ORDERED: OXAZEPAM 15MG CAP PO ONE (02:40)
[2022-10-15 02:43] LABS: ALBUMIN 3.8 G/DL (3.2-5.2); ALKALINE PHOSPHATASE 91 U/L (46-116); ALT/SGPT 67 U/L (7.0-40); AST/SGOT 162 U/L (<34); BILIRUBIN,DIRECT 0.2 MG/DL (<0.4); BILIRUBIN,TOTAL 0.4 MG/DL (0.3-1.2); BLOOD UREA NITROGEN < 5 MG/DL (9-23); CALCIUM LEVEL 8.2 MG/DL (8.5-10.1); CARBON DIOXIDE LEVEL 18 MMOL/L (20-31); CHLORIDE LEVEL 98 MMOL/L (98-107); CREATININE FOR GFR 0.44 MG/DL (0.55-1.30); GLOMERULAR FILTRATION RATE > 60.0 (>60); GLUCOSE, FASTING 78 MG/DL (60-100); MAGNESIUM LEVEL 1.5 MG/DL (1.8-2.4); POTASSIUM SERUM 3.3 MMOL/L (3.5-5.1); SODIUM LEVEL 130 MMOL/L (136-145); THYROID STIMULATING HORMONE 1.035 uIU/ML (0.55-4.78); TOTAL PROTEIN 6.8 G/DL (5.7-8.2)
[2022-10-15] MEDS ORDERED: THIAMINE 100 MG TAB PO SCH (03:00)
[2022-10-15 03:06] LABS: CPK CREATINE PHOSPHOKINASE 4966 U/L (34-145)
[2022-10-15] MEDS ORDERED: MAG SULF 1GM/100ML (MAG RUN) 1 GM in IV 1 EA IV ONE ×2 (03:15→03:35)
[2022-10-15] MEDS: NS 1,000 ML IV SCH ×3 (03:55→18:35)
[2022-10-15] MEDS ORDERED: POTASSIUM CHLORIDE 10MEQ SR TABLET PO ONE ×2 (04:00→11:00)
[2022-10-15] MEDS: LORazepam 2 MG TAB PO PRN ×3 (05:42→22:30)
[2022-10-15 06:06] VITALS: BP 113/70; TEMP 97.9; O2SAT 99
[2022-10-15 06:17] VITALS: BP 113/70
[2022-10-15 06:35] LABS: BLOOD UREA NITROGEN < 5 MG/DL (9-23); CALCIUM LEVEL 7.9 MG/DL (8.5-10.1); CARBON DIOXIDE LEVEL 20 MMOL/L (20-31); CHLORIDE LEVEL 108 MMOL/L (98-107); CREATININE FOR GFR 0.41 MG/DL (0.55-1.30); GLOMERULAR FILTRATION RATE > 60.0 (>60); GLUCOSE, FASTING 71 MG/DL (60-100); MAGNESIUM LEVEL 2.2 MG/DL (1.8-2.4); POTASSIUM SERUM 3.4 MMOL/L (3.5-5.1); SODIUM LEVEL 140 MMOL/L (136-145)
[2022-10-15] MEDS ORDERED: OXAZEPAM 10MG CAP PO ONE (07:00)
[2022-10-15] MEDS ORDERED: VITMTA PO (08:00)
[2022-10-15] MEDS ORDERED: VITA100093 PO (08:00)
[2022-10-15] MEDS ORDERED: VITA500T73 PO (08:00)
[2022-10-15] MEDS ORDERED: HOME MED LIST COMPLETE! XX SCH (08:00)
[2022-10-15] MEDS ORDERED: C 50TAB PO (08:00)
[2022-10-15 08:05] VITALS: BP 126/71; TEMP 97.6; O2SAT 98
[2022-10-15] MEDS ORDERED: MULTIVITAMINS/MINERALS THERAP 1 TAB PO SCH (09:00)
[2022-10-15] MEDS ORDERED: FOLIC ACID 1MG TAB PO SCH (09:00)
[2022-10-15] MEDS: ENOXAPARIN 40MG/0.4ML SYRINGE (J1650 PER 10MG) SC SCH (10:15)
[2022-10-15] MEDS: FOLIC ACID 1MG TAB PO SCH (10:15)
[2022-10-15] MEDS: MULTIVITAMINS/MINERALS THERAP 1 TAB PO SCH (10:15)
[2022-10-15] MEDS: THIAMINE 100 MG TAB PO SCH ×2 (10:16→20:12)
[2022-10-15 11:59] VITALS: BP 127/70; TEMP 98.5; O2SAT 97
[2022-10-15] MEDS ORDERED: OXAZEPAM 10MG CAP PO SCH (12:00)
[2022-10-15] MEDS: OXAZEPAM 10MG CAP PO SCH ×2 (13:44→21:03)
[2022-10-15 16:10] VITALS: BP 130/87; TEMP 98.2; O2SAT 97
[2022-10-15 20:00] VITALS: BP 105/71; TEMP 97.8; O2SAT 99
[2022-10-16 00:30] VITALS: BP 111/72; TEMP 96.6; O2SAT 97
[2022-10-16] MEDS: NS 1,000 ML IV SCH ×3 (02:30→20:17)
[2022-10-16 03:26] VITALS: BP 115/75; TEMP 97.1; O2SAT 99
[2022-10-16] MEDS: OXAZEPAM 10MG CAP PO SCH (05:02)
[2022-10-16 07:39] LABS: HEMATOCRIT 34.2 % (36.0-47.0); HEMOGLOBIN 11.4 g/dl (12.0-15.5); MEAN CORPUSCULAR HGB CONC 33.3 g/dl (32.0-36.5); MEAN CORPUSCULAR VOLUME 96.1 fl (80.0-96.0); PLATELET COUNT, AUTOMATED 122 10^3/uL (150-450); RED BLOOD COUNT 3.56 10^6/uL (4.00-5.40); WHITE BLOOD COUNT 3.9 10^3/uL (4.0-10.0)
[2022-10-16 08:03] LABS: ALBUMIN 2.8 G/DL (3.2-5.2); ALKALINE PHOSPHATASE 70 U/L (46-116); ALT/SGPT 41 U/L (7.0-40); AST/SGOT 58 U/L (<34); BILIRUBIN,TOTAL 0.6 MG/DL (0.3-1.2); BLOOD UREA NITROGEN < 5 MG/DL (9-23); CARBON DIOXIDE LEVEL 20 MMOL/L (20-31); CHLORIDE LEVEL 113 MMOL/L (98-107); CPK CREATINE PHOSPHOKINASE 1233 U/L (34-145); CREATININE FOR GFR 0.43 MG/DL (0.55-1.30); GLOMERULAR FILTRATION RATE > 60.0 (>60); GLUCOSE, FASTING 88 MG/DL (60-100); POTASSIUM SERUM 3.4 MMOL/L (3.5-5.1); SODIUM LEVEL 143 MMOL/L (136-145); TOTAL PROTEIN 5.4 G/DL (5.7-8.2)
[2022-10-16 08:05] VITALS: BP 118/65; TEMP 97.6; O2SAT 97
[2022-10-16] MEDS: ENOXAPARIN 40MG/0.4ML SYRINGE (J1650 PER 10MG) SC SCH (09:00)
[2022-10-16] MEDS: THIAMINE 100 MG TAB PO SCH ×2 (09:41→20:15)
[2022-10-16] MEDS: MULTIVITAMINS/MINERALS THERAP 1 TAB PO SCH (09:41)
[2022-10-16] MEDS: FOLIC ACID 1MG TAB PO SCH (09:41)
[2022-10-16] MEDS: POTASSIUM CHLORIDE 10MEQ SR TABLET PO SCH ×2 (11:00→12:00)
[2022-10-16] MEDS: LORazepam 2 MG TAB PO PRN ×2 (11:42→19:23)
[2022-10-16 12:00] VITALS: BP 116/70; TEMP 97.3; O2SAT 98
[2022-10-16] MEDS ORDERED: SODIUM CHLORIDE NASAL 0.65% SPRAY BTL (OCEAN) PRN (12:15)
[2022-10-16 16:40] VITALS: BP 128/76; TEMP 97; O2SAT 97
[2022-10-16 17:11] LABS: GC DNA AMPLIFICATION NEGATIVE (NEGATIVE)
[2022-10-16] MEDS ORDERED: FLUCONAZOLE 50MG TABLET PO ONE (19:00)
[2022-10-16 20:00] VITALS: BP 120/69; TEMP 98.5; O2SAT 99
[2022-10-16] MEDS ORDERED: NEOSPORIN TOP OINT 15GM TOP SCH (21:00)
[2022-10-17] VITALS: BP 150/100; TEMP 98.5; O2SAT 97
[2022-10-17] MEDS: LORazepam 2 MG TAB PO PRN (00:12)
[2022-10-17 00:45] VITALS: BP 132/96
[2022-10-17 03:51] VITALS: BP 123/81; TEMP 96.8; O2SAT 97
[2022-10-17 04:59] LABS: HEMATOCRIT 35.4 % (36.0-47.0); HEMOGLOBIN 11.8 g/dl (12.0-15.5); MEAN CORPUSCULAR HEMOGLOBIN 31.8 pg (27.0-33.0); MEAN CORPUSCULAR HGB CONC 33.3 g/dl (32.0-36.5); MEAN CORPUSCULAR VOLUME 95.4 fl (80.0-96.0); PLATELET COUNT, AUTOMATED 151 10^3/uL (150-450); RED BLOOD COUNT 3.71 10^6/uL (4.00-5.40); WHITE BLOOD COUNT 5.2 10^3/uL (4.0-10.0)
[2022-10-17 05:26] LABS: ALBUMIN 2.9 G/DL (3.2-5.2); ALKALINE PHOSPHATASE 72 U/L (46-116); ALT/SGPT 42 U/L (7.0-40); AST/SGOT 43 U/L (<34); BILIRUBIN,TOTAL 0.5 MG/DL (0.3-1.2); BLOOD UREA NITROGEN < 5 MG/DL (9-23); CALCIUM LEVEL 8.1 MG/DL (8.5-10.1); CARBON DIOXIDE LEVEL 23 MMOL/L (20-31); CHLORIDE LEVEL 110 MMOL/L (98-107); CREATININE FOR GFR 0.44 MG/DL (0.55-1.30); GLOMERULAR FILTRATION RATE > 60.0 (>60); GLUCOSE, FASTING 92 MG/DL (60-100); POTASSIUM SERUM 3.1 MMOL/L (3.5-5.1); SODIUM LEVEL 144 MMOL/L (136-145); TOTAL PROTEIN 5.4 G/DL (5.7-8.2)
[2022-10-17 06:13] LABS: MAGNESIUM LEVEL 1.7 MG/DL (1.8-2.4)
[2022-10-17] MEDS: NS 1,000 ML IV SCH (06:16)
[2022-10-17] MEDS ORDERED: FOLI1TAB11 PO (06:53)
[2022-10-17] MEDS ORDERED: POTA-136 PO (06:53)
[2022-10-17] MEDS ORDERED: VITMTA PO (06:53)
[2022-10-17] MEDS ORDERED: MAGN400T2 PO (06:53)
[2022-10-17] MEDS ORDERED: THIA100TA PO (06:53)
[2022-10-17] MEDS ORDERED: POTASSIUM CHLORIDE 10MEQ SR TABLET PO ONE (07:00)
[2022-10-17] MEDS ORDERED: KCL 10MEQ/100ML SWI (KRUN) 10 MEQ in IV 1 EA IV SCH (07:00)
[2022-10-17 07:15] LABS: CPK CREATINE PHOSPHOKINASE 765 U/L (34-145)
[2022-10-17] MEDS ORDERED: POTASSIUM CHLORIDE 10MEQ SR TABLET PO SCH (07:45)
[2022-10-17] MEDS ORDERED: MAG SULF 1GM/100ML (MAG RUN) 1 GM in IV 1 EA IV ONE (08:00)
[2022-10-17 08:48] VITALS: BP 120/70; TEMP 97; O2SAT 98
[2022-10-17] MEDS: THIAMINE 100 MG TAB PO SCH (09:00)
[2022-10-17] MEDS: ENOXAPARIN 40MG/0.4ML SYRINGE (J1650 PER 10MG) SC SCH (09:00)
[2022-10-17] MEDS: FOLIC ACID 1MG TAB PO SCH (09:00)
[2022-10-17] MEDS: MULTIVITAMINS/MINERALS THERAP 1 TAB PO SCH (09:00)
[2022-10-17] MEDS ORDERED: MAGNESIUM OXIDE 400MG TAB (MAG-OX) PO SCH (09:00)
== END 2022-10-17 10:35 | disposition home or self-care (01) ==
LOC: M ED 22:54 → M ED INP 10-15 03:53 → M PCU 10-15 06:06
PROVIDERS: ADMIT Family Medicine; ATTEND Family Medicine
DX: F10.130 Alcohol abuse with withdrawal, uncomplicated (principal); M62.82 Rhabdomyolysis; E87.6 Hypokalemia; E83.42 Hypomagnesemia; E87.20 Acidosis, unspecified; K70.10 Alcoholic hepatitis without ascites; T76.21XA Adult sexual abuse, suspected, initial encounter; S00.81XA Abrasion of other part of head, initial encounter; L29.2 Pruritus vulvae; Y92.89 Other specified places as the place of occurrence of the external cause; Z79.899 Other long term (current) drug therapy; Z98.84 Bariatric surgery status
CPT/HCPCS: 36415; 80048; 80053; 80076; 80307; 81001; 82077; 82550; 82803; 83605; 83735; 83930; 84443; 84703; 85025; 85027; 87086; 87635; 87661; 87810; 87850; 93005; 93041; 94760; 96361; 96365; 96372; 96375; 96376; 97161; J1650; J2060; J3475

== ENCOUNTER 2022-10-19 13:13 | Emergency (ER) | payer OTHER ==
[~2022-10-19] VITALS: Ht 167.6 cm; Wt 72.0 kg
[~2022-10-19 13:13] MED LIST changes: +C 50TAB PO; +MAGN400T2 PO; +POTA-136 PO; +VITA100093 PO; +VITA500T73 PO
[2022-10-19] MEDS ORDERED: NS 1,000 ML IV ONE (13:35)
[2022-10-19] MEDS ORDERED: ONDANSETRON 4MG 2ML VIAL IV ONE (13:35)
[2022-10-19 13:54] LABS: HEMOGLOBIN 13.9 g/dl (12.0-15.5); MEAN CORPUSCULAR HEMOGLOBIN 31.4 pg (27.0-33.0); MEAN CORPUSCULAR HGB CONC 32.3 g/dl (32.0-36.5); MEAN CORPUSCULAR VOLUME 97.1 fl (80.0-96.0); PLATELET COUNT, AUTOMATED 275 10^3/uL (150-450); RED BLOOD COUNT 4.43 10^6/uL (4.00-5.40); WHITE BLOOD COUNT 6.3 10^3/uL (4.0-10.0)
[2022-10-19] MEDS: LORazepam 2 MG/ML 1ML VIAL IV STA ×2 (13:55→16:24)
[2022-10-19 14:14] LABS: ACETAMINOPHEN LEVEL < 2.0 UG/ML (10.0-20.0)
[2022-10-19 14:15] LABS: SALICYLATE LEVEL < 3.0 MG/DL (<30)
[2022-10-19 14:18] LABS: HCG, SERUM QUALITATIVE NEGATIVE (NEGATIVE); THYROID STIMULATING HORMONE 0.389 uIU/ML (0.55-4.78)
[2022-10-19 14:24] LABS: AMPHETAMINES LEVEL URINE NEGATIVE (NEGATIVE); BARBITURATES URINE NEGATIVE (NEGATIVE); BENZODIAZEPINES URINE NEGATIVE (NEGATIVE); COCAINE METABOLITE URINE NEGATIVE (NEGATIVE); METHADONE URINE NEGATIVE (NEGATIVE)
[2022-10-19 14:25] LABS: CANNABINOIDS URINE NEGATIVE (NEGATIVE); OPIATES URINE NEGATIVE (NEGATIVE); PHENCYCLIDINE URINE NEGATIVE (NEGATIVE)
[2022-10-19 14:47] LABS: ALBUMIN 3.7 G/DL (3.2-5.2); ALKALINE PHOSPHATASE 86 U/L (46-116); ALT/SGPT 59 U/L (7.0-40); AST/SGOT 77 U/L (<34); BILIRUBIN,DIRECT 0.1 MG/DL (<0.4); BILIRUBIN,TOTAL 0.2 MG/DL (0.3-1.2); BLOOD UREA NITROGEN < 5 MG/DL (9-23); CALCIUM LEVEL 8.6 MG/DL (8.5-10.1); CARBON DIOXIDE LEVEL 24 MMOL/L (20-31); CHLORIDE LEVEL 114 MMOL/L (98-107); ETHYL ALCOHOL (ETHANOL) 0.486 % (0.000-0.010); GLOMERULAR FILTRATION RATE > 60.0 (>60); GLUCOSE, FASTING 82 MG/DL (60-100); POTASSIUM SERUM 4.1 MMOL/L (3.5-5.1); SODIUM LEVEL 148 MMOL/L (136-145)
[2022-10-19 17:34] VITALS: BP 133/87; TEMP 98.1; O2SAT 97
== END 2022-10-19 17:38 | disposition home or self-care (01) ==
LOC: EDBD 13:13 → M ED 13:13
DX: F10.129 Alcohol abuse with intoxication, unspecified (principal); I10 Essential (primary) hypertension; K70.10 Alcoholic hepatitis without ascites; Z98.84 Bariatric surgery status; F41.9 Anxiety disorder, unspecified; F32.A Depression, unspecified; Z79.899 Other long term (current) drug therapy
CPT/HCPCS: 80048; 80076; 80143; 80307; 82077; 84443; 84703; 85027; 87635; 96374; 96375; 99284; J2060; J2405

== ENCOUNTER 2022-10-21 10:33 | Observation (INO) | payer OTHER ==
[~2022-10-21] VITALS: Ht 167.6 cm; Wt 75.1 kg
[~2022-10-21 10:33] MED LIST changes: +FOLIC ACID 1MG TAB PO SCH; +MULTIVITAMINS/MINERALS THERAP 1 TAB PO SCH; +THIAMINE 100 MG TAB PO SCH
[2022-10-21] MEDS ORDERED: NS 1,000 ML IV ONE ×4 (10:45→12:50)
[2022-10-21] MEDS ORDERED: LORazepam 2 MG/ML 1ML VIAL IV STA (10:47)
[2022-10-21] MEDS ORDERED: LORazepam 2 MG TAB PO PRN (10:50)
[2022-10-21 10:59] LABS: VENOUS BASE EXCESS -1.3 (-2.0-2.0); VENOUS O2 SATURATION 92.3 % (60.0-80.0); VENOUS PARTIAL PRESSURE O2 67.7 mmHg (30.0-50.0); VENOUS PH 7.477 UNITS (7.330-7.430); VENOUS STANDARD HCO3 23.2 MMOL/L; VENOUS TOTAL CO2 21.9 MMOL/L (24.0-28.0)
[2022-10-21 11:06] LABS: BASO % 0.4 % (0.0-1.0); HEMATOCRIT 40.3 % (36.0-47.0); HEMOGLOBIN 13.8 g/dl (12.0-15.5); LYMPH # 1.6 10^3/uL (1.5-5.0); LYMPH % 21.3 % (24.0-44.0); MEAN CORPUSCULAR HEMOGLOBIN 31.4 pg (27.0-33.0); MEAN CORPUSCULAR HGB CONC 34.2 g/dl (32.0-36.5); MEAN CORPUSCULAR VOLUME 91.8 fl (80.0-96.0); MONO % 14.2 % (2.0-8.0); NEUTROPHILS # 4.7 10^3/uL (1.5-8.5); NEUTROPHILS % 63.7 % (36.0-66.0); PLATELET COUNT, AUTOMATED 329 10^3/uL (150-450); RED BLOOD COUNT 4.39 10^6/uL (4.00-5.40); WHITE BLOOD COUNT 7.3 10^3/uL (4.0-10.0)
[2022-10-21 11:33] LABS: ETHYL ALCOHOL (ETHANOL) 0.026 % (0.000-0.010)
[2022-10-21 11:34] LABS: SALICYLATE LEVEL < 3.0 MG/DL (<30)
[2022-10-21 11:35] LABS: ACETAMINOPHEN LEVEL < 2.0 UG/ML (10.0-20.0)
[2022-10-21 11:38] LABS: OSMOLALITY SERUM 316 MOSM/KG (275-295)
[2022-10-21 11:39] LABS: HCG, SERUM QUALITATIVE NEGATIVE (NEGATIVE)
[2022-10-21 11:54] LABS: ALBUMIN 4.1 G/DL (3.2-5.2); ALKALINE PHOSPHATASE 92 U/L (46-116); ALT/SGPT 62 U/L (7.0-40); AST/SGOT 75 U/L (<34); BILIRUBIN,DIRECT 0.2 MG/DL (<0.4); BILIRUBIN,TOTAL 0.5 MG/DL (0.3-1.2); BLOOD UREA NITROGEN < 5 MG/DL (9-23); CALCIUM LEVEL 8.8 MG/DL (8.5-10.1); CARBON DIOXIDE LEVEL 20 MMOL/L (20-31); CHLORIDE LEVEL 101 MMOL/L (98-107); CPK CREATINE PHOSPHOKINASE 1270 U/L (34-145); CREATININE FOR GFR 0.43 MG/DL (0.55-1.30); GLOMERULAR FILTRATION RATE > 60.0 (>60); GLUCOSE, FASTING 133 MG/DL (60-100); MAGNESIUM LEVEL 2.1 MG/DL (1.8-2.4); POTASSIUM SERUM 3.6 MMOL/L (3.5-5.1); SODIUM LEVEL 138 MMOL/L (136-145); THYROID STIMULATING HORMONE 1.324 uIU/ML (0.55-4.78); TOTAL PROTEIN 7.2 G/DL (5.7-8.2)
[2022-10-21] MEDS ORDERED: D5W/0.45% SODIUM CHLORIDE 1,000 ML IV SCH (12:20)
[2022-10-21 12:33] LABS: AMPHETAMINES LEVEL URINE NEGATIVE (NEGATIVE); BARBITURATES URINE NEGATIVE (NEGATIVE); BENZODIAZEPINES URINE NEGATIVE (NEGATIVE); CANNABINOIDS URINE NEGATIVE (NEGATIVE); COCAINE METABOLITE URINE NEGATIVE (NEGATIVE); METHADONE URINE NEGATIVE (NEGATIVE); OPIATES URINE NEGATIVE (NEGATIVE); PHENCYCLIDINE URINE NEGATIVE (NEGATIVE)
[2022-10-21 12:44] LABS: ACETONE/KETONE 0.14 MMOL/L (0.02-0.27)
[2022-10-21] MEDS ORDERED: THIAMINE 200MG 2ML VIAL IV ONE (12:45)
[2022-10-21] MEDS ORDERED: MED REC IN PROGRESS XX SCH (12:50)
[2022-10-21] MEDS ORDERED: MED REC COMMENT (13:29)
[2022-10-21] MEDS ORDERED: HOME MED LIST COMPLETE! XX SCH (13:40)
[2022-10-21] MEDS: HEPARIN SOD (PORCINE) 5000UNITS/ML 1ML VIAL/SYRINGE SC SCH ×2 (14:00→22:00)
[2022-10-21] MEDS: D5W/0.9% SODIUM CHLORIDE 1,000 ML IV SCH (15:01)
[2022-10-21] MEDS: LORazepam 2 MG TAB PO PRN ×2 (15:01→22:24)
[2022-10-21] MEDS ORDERED: traZODone 50 MG TAB PO PRN (17:45)
[2022-10-21] MEDS: CYANOCOBALAMIN 500 MCG TAB PO SCH (18:03)
[2022-10-21] MEDS: ASCORBIC ACID 500 MG TAB PO SCH (18:03)
[2022-10-21] MEDS: OXAZEPAM 10MG CAP PO SCH (18:03)
[2022-10-21] MEDS: VITAMIN D 1,000 INTERNATIONAL UNITS TABLET PO SCH (18:03)
[2022-10-21] MEDS: CitaloPRAM (CeleXA) 20 MG TAB PO SCH (18:05)
[2022-10-21] MEDS: THIAMINE 100 MG TAB PO SCH (21:00)
[2022-10-22] MEDS: OXAZEPAM 10MG CAP PO SCH ×2 (01:27→08:11)
[2022-10-22] MEDS: HEPARIN SOD (PORCINE) 5000UNITS/ML 1ML VIAL/SYRINGE SC SCH ×3 (06:00→21:16)
[2022-10-22 07:33] LABS: BASO % 0.7 % (0.0-1.0); EOS % 0.7 % (0.0-3.0); HEMATOCRIT 37.2 % (36.0-47.0); HEMOGLOBIN 12.2 g/dl (12.0-15.5); LYMPH # 1.8 10^3/uL (1.5-5.0); LYMPH % 43.7 % (24.0-44.0); MEAN CORPUSCULAR HEMOGLOBIN 31.4 pg (27.0-33.0); MEAN CORPUSCULAR HGB CONC 32.8 g/dl (32.0-36.5); MEAN CORPUSCULAR VOLUME 95.6 fl (80.0-96.0); MONO # 0.7 10^3/uL (0.0-0.8); MONO % 16.9 % (2.0-8.0); NEUTROPHILS # 1.5 10^3/uL (1.5-8.5); NEUTROPHILS % 37.8 % (36.0-66.0); PLATELET COUNT, AUTOMATED 251 10^3/uL (150-450); RED BLOOD COUNT 3.89 10^6/uL (4.00-5.40)
[2022-10-22 07:57] LABS: CPK CREATINE PHOSPHOKINASE 605 U/L (34-145)
[2022-10-22] MEDS: FOLIC ACID 1MG TAB PO SCH (08:12)
[2022-10-22] MEDS: MULTIVITAMINS/MINERALS THERAP 1 TAB PO SCH (08:12)
[2022-10-22] MEDS: CYANOCOBALAMIN 500 MCG TAB PO SCH (08:13)
[2022-10-22] MEDS: THIAMINE 100 MG TAB PO SCH ×2 (08:13→21:19)
[2022-10-22] MEDS: ASCORBIC ACID 500 MG TAB PO SCH (08:14)
[2022-10-22] MEDS: VITAMIN D 1,000 INTERNATIONAL UNITS TABLET PO SCH (08:14)
[2022-10-22] MEDS: CitaloPRAM (CeleXA) 20 MG TAB PO SCH (08:14)
[2022-10-22 08:24] LABS: BLOOD UREA NITROGEN < 5 MG/DL (9-23); CALCIUM LEVEL 8.2 MG/DL (8.5-10.1); CARBON DIOXIDE LEVEL 24 MMOL/L (20-31); CHLORIDE LEVEL 107 MMOL/L (98-107); CREATININE FOR GFR 0.46 MG/DL (0.55-1.30); GLOMERULAR FILTRATION RATE > 60.0 (>60); GLUCOSE, FASTING 88 MG/DL (60-100); POTASSIUM SERUM 3.7 MMOL/L (3.5-5.1); SODIUM LEVEL 141 MMOL/L (136-145)
[2022-10-22 09:21] LABS: MAGNESIUM LEVEL 2.1 MG/DL (1.8-2.4)
[2022-10-22] MEDS: D5W/0.9% SODIUM CHLORIDE 1,000 ML IV SCH (09:21)
[2022-10-22 11:45] VITALS: BP 126/79; TEMP 98.1; O2SAT 94
[2022-10-22] MEDS: OXAZEPAM 15MG CAP PO SCH ×2 (12:44→17:53)
[2022-10-22 15:55] VITALS: BP 121/74; TEMP 96.9; O2SAT 94
[2022-10-22 20:46] VITALS: BP 111/71; TEMP 97.1; O2SAT 99
[2022-10-23 00:13] VITALS: BP 121/83; TEMP 97.7; O2SAT 95
[2022-10-23] MEDS: OXAZEPAM 15MG CAP PO SCH ×4 (00:55→21:13)
[2022-10-23 05:00] VITALS: BP 105/65; TEMP 97.3; O2SAT 96
[2022-10-23] MEDS: HEPARIN SOD (PORCINE) 5000UNITS/ML 1ML VIAL/SYRINGE SC SCH ×3 (06:00→20:27)
[2022-10-23 08:00] VITALS: BP 112/76; TEMP 98; O2SAT 96
[2022-10-23] MEDS: FOLIC ACID 1MG TAB PO SCH (09:13)
[2022-10-23] MEDS: CYANOCOBALAMIN 500 MCG TAB PO SCH (09:13)
[2022-10-23] MEDS: ASCORBIC ACID 500 MG TAB PO SCH (09:13)
[2022-10-23] MEDS: CitaloPRAM (CeleXA) 20 MG TAB PO SCH (09:13)
[2022-10-23] MEDS: LORazepam 2 MG TAB PO PRN ×3 (09:14→17:14)
[2022-10-23] MEDS: THIAMINE 100 MG TAB PO SCH ×2 (09:14→21:12)
[2022-10-23] MEDS: MULTIVITAMINS/MINERALS THERAP 1 TAB PO SCH (09:14)
[2022-10-23] MEDS: VITAMIN D 1,000 INTERNATIONAL UNITS TABLET PO SCH (09:14)
[2022-10-23] MEDS: ACETAMINOPHEN TAB 650MG DOSE (2X325MG) PO PRN ×2 (10:37→17:13)
[2022-10-23] MEDS ORDERED: ONDANSETRON 4MG 2ML VIAL IV PRN (11:00)
[2022-10-23 12:00] VITALS: BP 106/68; TEMP 97; O2SAT 98
[2022-10-23] MEDS ORDERED: OXAZEPAM 10MG CAP PO SCH (14:00)
[2022-10-23 15:41] VITALS: BP 121/80; TEMP 98.9; O2SAT 96
[2022-10-23 20:50] VITALS: BP 112/70; TEMP 97.3; O2SAT 98
[2022-10-24 00:30] VITALS: BP 119/78; TEMP 97.7; O2SAT 97
[2022-10-24 04:31] VITALS: BP 110/75; TEMP 98; O2SAT 97
[2022-10-24] MEDS: OXAZEPAM 15MG CAP PO SCH (04:49)
[2022-10-24] MEDS: HEPARIN SOD (PORCINE) 5000UNITS/ML 1ML VIAL/SYRINGE SC SCH (05:29)
[2022-10-24 07:50] VITALS: BP 107/78; TEMP 98.3; O2SAT 98
[2022-10-24 09:30] VITALS: BP 107/78
[2022-10-24] MEDS: MULTIVITAMINS/MINERALS THERAP 1 TAB PO SCH (09:34)
[2022-10-24] MEDS: ASCORBIC ACID 500 MG TAB PO SCH (09:34)
[2022-10-24] MEDS: CitaloPRAM (CeleXA) 20 MG TAB PO SCH (09:34)
[2022-10-24] MEDS: CYANOCOBALAMIN 500 MCG TAB PO SCH (09:34)
[2022-10-24] MEDS: VITAMIN D 1,000 INTERNATIONAL UNITS TABLET PO SCH (09:34)
[2022-10-24] MEDS: FOLIC ACID 1MG TAB PO SCH (09:34)
[2022-10-24] MEDS ORDERED: OXAZEPAM 10MG CAP PO SCH (12:00)
[2022-10-24 12:45] VITALS: BP 100/64
== END 2022-10-24 15:46 | disposition left against medical advice (07) ==
LOC: EDBD 10:33 → M ED 10:33 → M ED INP 10:34 → ENRESERV 10-22 10:54 → M PCU 10-22 11:39
PROVIDERS: ADMIT Family Medicine; ATTEND Family Medicine
DX: F10.130 Alcohol abuse with withdrawal, uncomplicated (principal); G25.1 Drug-induced tremor; E87.20 Acidosis, unspecified; M62.82 Rhabdomyolysis; E88.89 Other specified metabolic disorders; K70.10 Alcoholic hepatitis without ascites; T20.06XA Burn of unspecified degree of forehead and cheek, initial encounter; X08.8XXA Exposure to other specified smoke, fire and flames, initial encounter; Y92.89 Other specified places as the place of occurrence of the external cause; Z79.899 Other long term (current) drug therapy; Z91.148 Patient's other noncompliance with medication regimen for other reason; Z98.84 Bariatric surgery status
CPT/HCPCS: 36415; 80048; 80076; 80143; 80307; 82010; 82077; 82550; 82803; 83605; 83735; 83930; 84443; 84703; 85025; 85027; 87635; 93005; 93041; 94760; 96361; 96372; 96374; 96375; 99285; J2060; J2405; J3411

== ENCOUNTER 2022-12-16 09:09 | Emergency (ER) | payer OTHER ==
[~2022-12-16] VITALS: Ht 167.6 cm; Wt 73.7 kg
[~2022-12-16 09:09] MED LIST changes: -FOLIC ACID 1MG TAB PO SCH; -MULTIVITAMINS/MINERALS THERAP 1 TAB PO SCH; -THIAMINE 100 MG TAB PO SCH
[2022-12-16] MEDS ORDERED: LORazepam 2 MG TAB PO PRN (11:40)
[2022-12-16 11:58] LABS: HEMATOCRIT 41.7 % (36.0-47.0); HEMOGLOBIN 14.2 g/dl (12.0-15.5); MEAN CORPUSCULAR HGB CONC 34.1 g/dl (32.0-36.5); MEAN CORPUSCULAR VOLUME 93.9 fl (80.0-96.0); PLATELET COUNT, AUTOMATED 333 10^3/uL (150-450); RED BLOOD COUNT 4.44 10^6/uL (4.00-5.40)
[2022-12-16] MEDS ORDERED: THIAMINE 100 MG TAB PO SCH (12:00)
[2022-12-16 12:25] LABS: ETHYL ALCOHOL (ETHANOL) 0.103 % (0.000-0.010)
[2022-12-16 12:27] LABS: ACETAMINOPHEN LEVEL < 2.0 UG/ML (10.0-20.0); SALICYLATE LEVEL < 3.0 MG/DL (<30)
[2022-12-16 12:29] LABS: HCG, SERUM QUALITATIVE NEGATIVE (NEGATIVE)
[2022-12-16 12:37] LABS: AMPHETAMINES LEVEL URINE NEGATIVE (NEGATIVE); BARBITURATES URINE NEGATIVE (NEGATIVE); BENZODIAZEPINES URINE NEGATIVE (NEGATIVE); CANNABINOIDS URINE NEGATIVE (NEGATIVE); COCAINE METABOLITE URINE NEGATIVE (NEGATIVE); METHADONE URINE NEGATIVE (NEGATIVE); OPIATES URINE NEGATIVE (NEGATIVE); PHENCYCLIDINE URINE NEGATIVE (NEGATIVE)
[2022-12-16 13:17] LABS: ALBUMIN 3.5 G/DL (3.2-5.2); ALKALINE PHOSPHATASE 103 U/L (46-116); ALT/SGPT 76 U/L (7.0-40); AST/SGOT 76 U/L (<34); BILIRUBIN,DIRECT 0.4 MG/DL (<0.4); BILIRUBIN,TOTAL 0.8 MG/DL (0.3-1.2); BLOOD UREA NITROGEN < 5 MG/DL (9-23); CALCIUM LEVEL 8.3 MG/DL (8.5-10.1); CARBON DIOXIDE LEVEL 22 MMOL/L (20-31); CHLORIDE LEVEL 97 MMOL/L (98-107); GLOMERULAR FILTRATION RATE > 60.0 (>60); GLUCOSE, FASTING 129 MG/DL (60-100); POTASSIUM SERUM 3.3 MMOL/L (3.5-5.1); SODIUM LEVEL 133 MMOL/L (136-145); THYROID STIMULATING HORMONE 2.325 uIU/ML (0.55-4.78); TOTAL PROTEIN 6.4 G/DL (5.7-8.2)
[2022-12-16 15:30] VITALS: BP 127/86
[2022-12-16] MEDS ORDERED: OXAZEPAM 15MG CAP PO ONE (15:30)
[2022-12-16 16:31] VITALS: TEMP 99.2; O2SAT 94
[2022-12-17] MEDS ORDERED: MULTIVITAMINS/MINERALS THERAP 1 TAB PO SCH (09:00)
[2022-12-17] MEDS ORDERED: FOLIC ACID 1MG TAB PO SCH (09:00)
== END 2022-12-16 16:35 | disposition home or self-care (01) ==
LOC: M ED 09:09
DX: F10.10 Alcohol abuse, uncomplicated (principal); F41.9 Anxiety disorder, unspecified

== ENCOUNTER 2022-12-18 18:58 | Emergency (ER) | payer OTHER ==
[~2022-12-18] VITALS: Ht 167.6 cm; Wt 70.4 kg
[2022-12-18 19:33] LABS: BASO # 0.1 10^3/uL (0.0-0.2); BASO % 0.4 % (0.0-1.0); EOS % 0.3 % (0.0-3.0); HEMATOCRIT 44.4 % (36.0-47.0); HEMOGLOBIN 15.4 g/dl (12.0-15.5); LYMPH % 23.1 % (24.0-44.0); MEAN CORPUSCULAR HEMOGLOBIN 32.2 pg (27.0-33.0); MEAN CORPUSCULAR HGB CONC 34.7 g/dl (32.0-36.5); MEAN CORPUSCULAR VOLUME 92.9 fl (80.0-96.0); MONO # 0.5 10^3/uL (0.0-0.8); MONO % 3.6 % (2.0-8.0); NEUTROPHILS # 9.3 10^3/uL (1.5-8.5); NEUTROPHILS % 72.1 % (36.0-66.0); PLATELET COUNT, AUTOMATED 320 10^3/uL (150-450); RED BLOOD COUNT 4.78 10^6/uL (4.00-5.40); WHITE BLOOD COUNT 12.9 10^3/uL (4.0-10.0)
[2022-12-18 20:03] LABS: ALBUMIN 3.4 G/DL (3.2-5.2); ALKALINE PHOSPHATASE 124 U/L (46-116); ALT/SGPT 46 U/L (7.0-40); AST/SGOT 37 U/L (<34); BILIRUBIN,DIRECT 0.1 MG/DL (<0.4); BILIRUBIN,TOTAL 0.3 MG/DL (0.3-1.2); BLOOD UREA NITROGEN 11 MG/DL (9-23); CALCIUM LEVEL 7.9 MG/DL (8.5-10.1); CARBON DIOXIDE LEVEL 27 MMOL/L (20-31); CHLORIDE LEVEL 107 MMOL/L (98-107); CREATININE FOR GFR 0.54 MG/DL (0.55-1.30); GLOMERULAR FILTRATION RATE > 60.0 (>60); GLUCOSE, FASTING 94 MG/DL (60-100); POTASSIUM SERUM 3.2 MMOL/L (3.5-5.1); SODIUM LEVEL 146 MMOL/L (136-145); TOTAL PROTEIN 6.3 G/DL (5.7-8.2)
[2022-12-18] MEDS ORDERED: MULTIVITAMIN -ADULT INJECTION 10 ML, THIAMINE INJection 100 MG, FOLIC ACID 1 MG in NS 1... IV ONE (20:10)
[2022-12-18] MEDS ORDERED: NS 1,000 ML IV ONE (20:10)
[2022-12-18 20:38] LABS: ETHYL ALCOHOL (ETHANOL) 0.467 % (0.000-0.010)
[2022-12-18] MEDS ORDERED: KCL 10MEQ/100ML SWI (KRUN) 10 MEQ in IV 1 EA IV ONE ×2 (21:00→22:00)
[2022-12-19] MEDS ORDERED: LR 1,000 ML IV ONE (01:05)
[2022-12-19 06:00] VITALS: TEMP 98.3
[2022-12-19 07:30] VITALS: BP 99/58
[2022-12-19 07:45] VITALS: O2SAT 97
== END 2022-12-19 08:14 | disposition home or self-care (01) ==
LOC: M ED 18:58
DX: F10.129 Alcohol abuse with intoxication, unspecified (principal); S01.01XA Laceration without foreign body of scalp, initial encounter; Z79.899 Other long term (current) drug therapy
CPT/HCPCS: 70450; 71045; 72125; 80047; 80048; 80076; 82077; 83735; 84702; 85025; 93005; 93041; 94760; 96365; 96366; 96367; 96368; 99285; J3411

== ENCOUNTER 2023-01-12 08:55 | Emergency (ER) | payer OTHER ==
[~2023-01-12] VITALS: Ht 167.6 cm; Wt 68.2 kg
[~2023-01-12 08:55] MED LIST changes: -DISU1TAB6; -DISU1TAB6 PO; +DISU1TAB7; +DISU1TAB7 PO
[2023-01-12] MEDS ORDERED: LORazepam 2 MG/ML 1ML VIAL IV STA (09:33)
[2023-01-12] MEDS ORDERED: THIAMINE 100 MG TAB PO ONE (09:35)
[2023-01-12] MEDS ORDERED: NS 1,000 ML IV ONE (09:35)
[2023-01-12] MEDS ORDERED: ONDANSETRON 4MG 2ML VIAL IV ONE (09:35)
[2023-01-12 09:57] LABS: BASO % 0.1 % (0.0-1.0); EOS % 0.1 % (0.0-3.0); HEMATOCRIT 40.3 % (36.0-47.0); HEMOGLOBIN 13.8 g/dl (12.0-15.5); LYMPH # 0.7 10^3/uL (1.5-5.0); MEAN CORPUSCULAR HEMOGLOBIN 32.1 pg (27.0-33.0); MEAN CORPUSCULAR HGB CONC 34.2 g/dl (32.0-36.5); MEAN CORPUSCULAR VOLUME 93.7 fl (80.0-96.0); MONO # 0.5 10^3/uL (0.0-0.8); MONO % 6.3 % (2.0-8.0); NEUTROPHILS # 7.2 10^3/uL (1.5-8.5); NEUTROPHILS % 85.3 % (36.0-66.0); PLATELET COUNT, AUTOMATED 374 10^3/uL (150-450); WHITE BLOOD COUNT 8.5 10^3/uL (4.0-10.0)
[2023-01-12 10:15] LABS: LIPASE 35 U/L (12-53)
[2023-01-12 10:19] LABS: ALKALINE PHOSPHATASE 122 U/L (46-116); ALT/SGPT 55 U/L (7.0-40); AST/SGOT 53 U/L (<34); BILIRUBIN,DIRECT 0.3 MG/DL (<0.4); BILIRUBIN,TOTAL 1.1 MG/DL (0.3-1.2); BLOOD UREA NITROGEN < 5 MG/DL (9-23); CALCIUM LEVEL 9.3 MG/DL (8.5-10.1); CARBON DIOXIDE LEVEL 24 MMOL/L (20-31); CHLORIDE LEVEL 99 MMOL/L (98-107); CREATININE FOR GFR 0.45 MG/DL (0.55-1.30); GLOMERULAR FILTRATION RATE > 60.0 (>60); GLUCOSE, FASTING 140 MG/DL (60-100); POTASSIUM SERUM 3.8 MMOL/L (3.5-5.1); SODIUM LEVEL 137 MMOL/L (136-145); TOTAL PROTEIN 7.2 G/DL (5.7-8.2)
[2023-01-12] MEDS ORDERED: OXAZEPAM 15MG CAP PO ONE (12:40)
[2023-01-12 14:17] VITALS: BP 140/82; TEMP 97.8; O2SAT 99
== END 2023-01-12 14:27 | disposition home or self-care (01) ==
LOC: M ED 08:55
DX: F10.10 Alcohol abuse, uncomplicated (principal)
CPT/HCPCS: 80048; 80076; 83690; 85025; 93041; 96361; 96374; 96375; 99285; J2060; J2405

== ENCOUNTER 2023-01-18 14:01 | Emergency (ER) | payer OTHER ==
[~2023-01-18] VITALS: Ht 167.6 cm; Wt 68.2 kg
[2023-01-18] MEDS ORDERED: MED REC IN PROGRESS XX SCH (14:40)
[2023-01-18 15:08] LABS: HEMATOCRIT 41.6 % (36.0-47.0); HEMOGLOBIN 14.3 g/dl (12.0-15.5); MEAN CORPUSCULAR HEMOGLOBIN 32.3 pg (27.0-33.0); MEAN CORPUSCULAR HGB CONC 34.4 g/dl (32.0-36.5); MEAN CORPUSCULAR VOLUME 93.9 fl (80.0-96.0); PLATELET COUNT, AUTOMATED 214 10^3/uL (150-450); RED BLOOD COUNT 4.43 10^6/uL (4.00-5.40); WHITE BLOOD COUNT 7.2 10^3/uL (4.0-10.0)
[2023-01-18 15:34] LABS: SALICYLATE LEVEL < 3.0 MG/DL (<30)
[2023-01-18 15:36] LABS: HCG, SERUM QUALITATIVE NEGATIVE (NEGATIVE); THYROID STIMULATING HORMONE 0.942 uIU/ML (0.55-4.78)
[2023-01-18 15:38] LABS: ALBUMIN 3.7 G/DL (3.2-5.2); ALKALINE PHOSPHATASE 109 U/L (46-116); ALT/SGPT 70 U/L (7.0-40); AST/SGOT 83 U/L (<34); BILIRUBIN,DIRECT 0.2 MG/DL (<0.4); BILIRUBIN,TOTAL 0.5 MG/DL (0.3-1.2); BLOOD UREA NITROGEN < 5 MG/DL (9-23); CALCIUM LEVEL 8.2 MG/DL (8.5-10.1); CARBON DIOXIDE LEVEL 26 MMOL/L (20-31); CHLORIDE LEVEL 96 MMOL/L (98-107); CREATININE FOR GFR 0.55 MG/DL (0.55-1.30); GLOMERULAR FILTRATION RATE > 60.0 (>60); GLUCOSE, FASTING 117 MG/DL (60-100); POTASSIUM SERUM 3.9 MMOL/L (3.5-5.1); SODIUM LEVEL 140 MMOL/L (136-145); TOTAL PROTEIN 6.9 G/DL (5.7-8.2)
[2023-01-18 16:05] LABS: ETHYL ALCOHOL (ETHANOL) 0.377 % (0.000-0.010)
[2023-01-18] MEDS ORDERED: LORazepam 2 MG/ML 1ML VIAL IV STA ×3 (16:05→20:54)
[2023-01-18] MEDS ORDERED: NS 1,000 ML IV ONE ×2 (16:15→17:35)
[2023-01-18] MEDS ORDERED: FLUO20CA22 PO (16:29)
[2023-01-18] MEDS ORDERED: VITMTA PO (16:29)
[2023-01-18] MEDS ORDERED: NOXI1TAB PO (16:30)
[2023-01-18] MEDS ORDERED: HOME MED LIST COMPLETE! XX SCH (16:40)
[2023-01-18 16:50] LABS: AMPHETAMINES LEVEL URINE NEGATIVE (NEGATIVE)
[2023-01-18 16:51] LABS: BARBITURATES URINE NEGATIVE (NEGATIVE); BENZODIAZEPINES URINE NEGATIVE (NEGATIVE); CANNABINOIDS URINE NEGATIVE (NEGATIVE); COCAINE METABOLITE URINE NEGATIVE (NEGATIVE); METHADONE URINE NEGATIVE (NEGATIVE); OPIATES URINE NEGATIVE (NEGATIVE); PHENCYCLIDINE URINE NEGATIVE (NEGATIVE)
[2023-01-18] MEDS ORDERED: ONDANSETRON 4MG 2ML VIAL IV ONE (17:20)
[2023-01-18] MEDS ORDERED: LORazepam 1 MG TAB PO PRN (20:55)
[2023-01-19 07:45] VITALS: BP 155/80; TEMP 97.5; O2SAT 96
== END 2023-01-19 08:07 | disposition home or self-care (01) ==
LOC: M ED 14:01 → EDBD 14:01 → M ED 01-19 08:07
DX: F10.120 Alcohol abuse with intoxication, uncomplicated (principal); Z79.899 Other long term (current) drug therapy
CPT/HCPCS: 80048; 80076; 80143; 80307; 82077; 84443; 84703; 85027; 87635; 96361; 96374; 96375; 99285; J2060; J2405

== ENCOUNTER 2023-01-31 19:50 | Emergency (ER) | payer OTHER ==
[~2023-01-31] VITALS: Ht 165.1 cm; Wt 79.0 kg
[~2023-01-31 19:50] MED LIST changes: +FLUO20CA22 PO; +NOXI1TAB PO
[2023-01-31 21:12] LABS: HEMATOCRIT 41.7 % (36.0-47.0); HEMOGLOBIN 14.3 g/dl (12.0-15.5); MEAN CORPUSCULAR HEMOGLOBIN 32.2 pg (27.0-33.0); MEAN CORPUSCULAR HGB CONC 34.3 g/dl (32.0-36.5); MEAN CORPUSCULAR VOLUME 93.9 fl (80.0-96.0); PLATELET COUNT, AUTOMATED 417 10^3/uL (150-450); RED BLOOD COUNT 4.44 10^6/uL (4.00-5.40); WHITE BLOOD COUNT 5.8 10^3/uL (4.0-10.0)
[2023-01-31 21:36] LABS: SALICYLATE LEVEL < 3.0 MG/DL (<30)
[2023-01-31 21:39] LABS: THYROID STIMULATING HORMONE 3.514 uIU/ML (0.55-4.78)
[2023-01-31 22:01] LABS: ALBUMIN 3.5 G/DL (3.2-5.2); ALKALINE PHOSPHATASE 167 U/L (46-116); ALT/SGPT 291 U/L (7.0-40); AST/SGOT 258 U/L (<34); BILIRUBIN,DIRECT 0.1 MG/DL (<0.4); BILIRUBIN,TOTAL 0.3 MG/DL (0.3-1.2); BLOOD UREA NITROGEN < 5 MG/DL (9-23); CALCIUM LEVEL 8.1 MG/DL (8.5-10.1); CARBON DIOXIDE LEVEL 26 MMOL/L (20-31); CHLORIDE LEVEL 106 MMOL/L (98-107); CREATININE FOR GFR 0.49 MG/DL (0.55-1.30); ETHYL ALCOHOL (ETHANOL) 0.333 % (0.000-0.010); GLOMERULAR FILTRATION RATE > 60.0 (>60); GLUCOSE, FASTING 104 MG/DL (60-100); POTASSIUM SERUM 3.9 MMOL/L (3.5-5.1); SODIUM LEVEL 146 MMOL/L (136-145); TOTAL PROTEIN 6.8 G/DL (5.7-8.2)
[2023-01-31 22:04] LABS: AMPHETAMINES LEVEL URINE NEGATIVE (NEGATIVE); BARBITURATES URINE NEGATIVE (NEGATIVE); CANNABINOIDS URINE NEGATIVE (NEGATIVE); COCAINE METABOLITE URINE NEGATIVE (NEGATIVE); METHADONE URINE NEGATIVE (NEGATIVE); OPIATES URINE NEGATIVE (NEGATIVE); PHENCYCLIDINE URINE NEGATIVE (NEGATIVE)
[2023-01-31 22:09] LABS: BENZODIAZEPINES URINE POSITIVE (NEGATIVE)
[2023-02-01] MEDS ORDERED: NS 1,000 ML IV ONE ×2 (00:20→10:25)
[2023-02-01] MEDS ORDERED: LORazepam 2 MG/ML 1ML VIAL IV STA ×2 (04:57→10:23)
[2023-02-01] MEDS ORDERED: LORazepam 2 MG TAB PO PRN (06:15)
[2023-02-01] MEDS ORDERED: THIAMINE 100 MG TAB PO SCH (07:00)
[2023-02-01] MEDS ORDERED: TRAZ-257 (07:42)
[2023-02-01] MEDS ORDERED: LORazepam 1 MG TAB PO PRN (08:01)
[2023-02-01] MEDS ORDERED: MULTIVITAMINS/MINERALS THERAP 1 TAB PO SCH (09:00)
[2023-02-01] MEDS ORDERED: FOLIC ACID 1MG TAB PO SCH (09:00)
[2023-02-01 12:14] VITALS: TEMP 99.8
[2023-02-01 12:29] VITALS: O2SAT 97
[2023-02-01 12:31] VITALS: BP 126/82
== END 2023-02-01 12:53 | disposition short-term general hospital (02) ==
LOC: M ED 19:50
DX: F10.139 Alcohol abuse with withdrawal, unspecified (principal); F10.129 Alcohol abuse with intoxication, unspecified; F32.A Depression, unspecified; Z98.84 Bariatric surgery status
CPT/HCPCS: 80048; 80076; 80143; 80307; 82077; 84443; 85027; 87635; 96361; 96374; 96376; 99285; J2060

== ENCOUNTER 2023-06-07 03:38 | Emergency (ER) | payer OTHER ==
[~2023-06-07] VITALS: Ht 170.2 cm; Wt 79.5 kg
[~2023-06-07 03:38] MED LIST changes: +TRAZ-257
[2023-06-07 04:18] LABS: BASO % 0.2 % (0.0-1.0); HEMATOCRIT 37.6 % (36.0-47.0); HEMOGLOBIN 13.3 g/dl (12.0-15.5); LYMPH # 1.7 10^3/uL (1.5-5.0); LYMPH % 9.9 % (24.0-44.0); MEAN CORPUSCULAR HGB CONC 35.4 g/dl (32.0-36.5); MEAN CORPUSCULAR VOLUME 90.4 fl (80.0-96.0); MONO # 0.7 10^3/uL (0.0-0.8); MONO % 4.3 % (2.0-8.0); NEUTROPHILS # 14.6 10^3/uL (1.5-8.5); NEUTROPHILS % 85.3 % (36.0-66.0); PLATELET COUNT, AUTOMATED 245 10^3/uL (150-450); RED BLOOD COUNT 4.16 10^6/uL (4.00-5.40); WHITE BLOOD COUNT 17.1 10^3/uL (4.0-10.0)
[2023-06-07] MEDS: NS 1,000 ML IV ONE ×2 (04:20→04:21)
[2023-06-07] MEDS: LORazepam 2 MG/ML 1ML VIAL IV STA ×2 (04:20→05:19)
[2023-06-07 04:37] LABS: AMPHETAMINES LEVEL URINE NEGATIVE (NEGATIVE)
[2023-06-07 04:38] LABS: BARBITURATES URINE NEGATIVE (NEGATIVE); BENZODIAZEPINES URINE NEGATIVE (NEGATIVE); CANNABINOIDS URINE NEGATIVE (NEGATIVE); COCAINE METABOLITE URINE NEGATIVE (NEGATIVE); METHADONE URINE NEGATIVE (NEGATIVE); OPIATES URINE NEGATIVE (NEGATIVE); PHENCYCLIDINE URINE NEGATIVE (NEGATIVE)
[2023-06-07 04:39] LABS: ETHYL ALCOHOL (ETHANOL) < 0.003 % (0.000-0.010)
[2023-06-07 04:40] LABS: SALICYLATE LEVEL < 3.0 MG/DL (<30)
[2023-06-07 04:54] LABS: RSV AMPLIFICATION NEGATIVE (NEGATIVE)
[2023-06-07 05:05] LABS: ALBUMIN 3.7 G/DL (3.2-5.2); ALKALINE PHOSPHATASE 86 U/L (46-116); ALT/SGPT 33 U/L (7.0-40); AST/SGOT 72 U/L (<34); BILIRUBIN,DIRECT 0.5 MG/DL (<0.4); BILIRUBIN,TOTAL 1.3 MG/DL (0.3-1.2); BLOOD UREA NITROGEN 9 MG/DL (9-23); CALCIUM LEVEL 8.7 MG/DL (8.5-10.1); CARBON DIOXIDE LEVEL 29 MMOL/L (20-31); CHLORIDE LEVEL 92 MMOL/L (98-107); CREATININE FOR GFR 0.37 MG/DL (0.55-1.30); GLOMERULAR FILTRATION RATE > 60.0 (>60); GLUCOSE, FASTING 142 MG/DL (60-100); POTASSIUM SERUM 2.8 MMOL/L (3.5-5.1); SODIUM LEVEL 131 MMOL/L (136-145); TOTAL PROTEIN 6.3 G/DL (5.7-8.2)
[2023-06-07 05:07] LABS: HCG, SERUM QUALITATIVE NEGATIVE (NEGATIVE)
[2023-06-07] MEDS: OXAZEPAM 15MG CAP PO ONE (05:19)
[2023-06-07 06:30] VITALS: TEMP 97
[2023-06-07] MEDS ORDERED: HYDR1CAP25 PO (07:56)
[2023-06-07] MEDS ORDERED: QUET50TA4 PO (07:56)
[2023-06-07] MEDS ORDERED: HOME MED LIST COMPLETE! XX SCH (08:00)
[2023-06-07 08:30] LABS: MAGNESIUM LEVEL 1.2 MG/DL (1.8-2.4)
[2023-06-07] MEDS: LR 1,000 ML IV ONE (08:58)
[2023-06-07 09:00] VITALS: O2SAT 88
[2023-06-07] MEDS ORDERED: LORazepam 2 MG TAB PO PRN (09:20)
[2023-06-07] MEDS: MAG SULF 1GM/100ML (MAG RUN) 1 GM in IV 1 EA IV ONE ×2 (09:59→11:11)
[2023-06-07] MEDS: FOLIC ACID 1MG TAB PO SCH (09:59)
[2023-06-07] MEDS: THIAMINE 100 MG TAB PO SCH (09:59)
[2023-06-07] MEDS: MULTIVITAMINS/MINERALS THERAP 1 TAB PO SCH (09:59)
[2023-06-07 12:55] VITALS: BP 104/66
[2023-06-07] MEDS ORDERED: K-TA1TAB PO (14:40)
[2023-06-07] MEDS ORDERED: SLOWTAB2 PO (14:40)
== END 2023-06-07 15:58 | disposition home or self-care (01) ==
LOC: M ED 03:38 → EDBD 03:38 → M ED 15:58
DX: F10.130 Alcohol abuse with withdrawal, uncomplicated (principal); E83.42 Hypomagnesemia; E87.6 Hypokalemia; R00.0 Tachycardia, unspecified; Z98.84 Bariatric surgery status; F17.200 Nicotine dependence, unspecified, uncomplicated; Z79.899 Other long term (current) drug therapy
CPT/HCPCS: 80048; 80076; 80143; 80307; 82077; 83735; 84443; 84703; 85025; 87631; 93005; 96361; 96365; 96366; 96375; 96376; 99285; J2060; J3475

== ENCOUNTER 2023-06-14 02:55 | Inpatient (IN) | payer OTHER ==
[~2023-06-14] VITALS: Ht 167.6 cm; Wt 74.5 kg
[2023-06-14] VITALS (8 sets, daily range): BP systolic 118–128; BP diastolic 78–81; TEMP 97.7–99.8; O2SAT 95–99
[~2023-06-14 02:55] MED LIST changes: +HYDR1CAP25 PO; +K-TA1TAB PO; +QUET50TA4 PO; +SLOWTAB2 PO
[2023-06-14] MEDS: LORazepam 2 MG TAB PO PRN ×2 (04:09→19:18)
[2023-06-14] MEDS: NS 1,000 ML IV ONE ×2 (04:09→05:54)
[2023-06-14 04:17] LABS: BASO % 0.3 % (0.0-1.0); EOS % 0.1 % (0.0-3.0); HEMATOCRIT 41.3 % (36.0-47.0); HEMOGLOBIN 14.5 g/dl (12.0-15.5); LYMPH # 1.7 10^3/uL (1.5-5.0); LYMPH % 16.8 % (24.0-44.0); MEAN CORPUSCULAR HEMOGLOBIN 31.5 pg (27.0-33.0); MEAN CORPUSCULAR HGB CONC 35.1 g/dl (32.0-36.5); MEAN CORPUSCULAR VOLUME 89.8 fl (80.0-96.0); MONO % 10.2 % (2.0-8.0); NEUTROPHILS # 7.3 10^3/uL (1.5-8.5); NEUTROPHILS % 72.2 % (36.0-66.0); PLATELET COUNT, AUTOMATED 174 10^3/uL (150-450); WHITE BLOOD COUNT 10.1 10^3/uL (4.0-10.0)
[2023-06-14] MEDS: ONDANSETRON 4MG 2ML VIAL IV ONE (04:34)
[2023-06-14] MEDS: LORazepam 2 MG/ML 1ML VIAL IV STA (04:34)
[2023-06-14 04:48] LABS: HCG, SERUM QUALITATIVE NEGATIVE (NEGATIVE); SALICYLATE LEVEL < 3.0 MG/DL (<30)
[2023-06-14 04:49] LABS: RSV AMPLIFICATION NEGATIVE (NEGATIVE)
[2023-06-14 04:50] LABS: THYROID STIMULATING HORMONE 1.403 uIU/ML (0.55-4.78)
[2023-06-14 05:11] LABS: ALBUMIN 3.4 G/DL (3.2-5.2); ALKALINE PHOSPHATASE 136 U/L (46-116); ALT/SGPT 210 U/L (7.0-40); AST/SGOT 370 U/L (<34); BILIRUBIN,DIRECT 0.2 MG/DL (<0.4); BILIRUBIN,TOTAL 0.4 MG/DL (0.3-1.2); BLOOD UREA NITROGEN 8 MG/DL (9-23); CALCIUM LEVEL 7.4 MG/DL (8.5-10.1); CARBON DIOXIDE LEVEL 28 MMOL/L (20-31); CHLORIDE LEVEL 97 MMOL/L (98-107); CPK CREATINE PHOSPHOKINASE 2472 U/L (34-145); CREATININE FOR GFR 0.56 MG/DL (0.55-1.30); ETHYL ALCOHOL (ETHANOL) 0.377 % (0.000-0.010); GLOMERULAR FILTRATION RATE > 60.0 (>60); GLUCOSE, FASTING 93 MG/DL (60-100); POTASSIUM SERUM 2.7 MMOL/L (3.5-5.1); SODIUM LEVEL 136 MMOL/L (136-145); TOTAL PROTEIN 6.3 G/DL (5.7-8.2)
[2023-06-14] MEDS: POTASSIUM CHLORIDE 10MEQ SR TABLET PO ONE ×2 (05:55→10:04)
[2023-06-14 06:06] LABS: MAGNESIUM LEVEL 1.7 MG/DL (1.8-2.4)
[2023-06-14 06:22] LABS: INR 1.35; PARTIAL THROMBOPLASTIN TIME 26.3 SECONDS (24.8-34.2); PROTHROMBIN TIME 16.3 SECONDS (12.5-14.5)
[2023-06-14] MEDS: MAG SULF 1GM/100ML (MAG RUN) 1 GM in IV 1 EA IV ONE (06:59)
[2023-06-14 07:15] LABS: AMPHETAMINES LEVEL URINE NEGATIVE (NEGATIVE); BARBITURATES URINE NEGATIVE (NEGATIVE); BENZODIAZEPINES URINE NEGATIVE (NEGATIVE); CANNABINOIDS URINE NEGATIVE (NEGATIVE); COCAINE METABOLITE URINE NEGATIVE (NEGATIVE); METHADONE URINE NEGATIVE (NEGATIVE); OPIATES URINE NEGATIVE (NEGATIVE); PHENCYCLIDINE URINE NEGATIVE (NEGATIVE)
[2023-06-14] MEDS: IBUPROFEN 400MG TAB PO ONE (08:01)
[2023-06-14] MEDS ORDERED: HOME MED LIST COMPLETE! XX SCH (08:25)
[2023-06-14] MEDS ORDERED: MOM 30ML SUSPENSION UDC PO PRN (09:00)
[2023-06-14] MEDS ORDERED: MAALOX 30 ML SUSP *UDC PO PRN (09:00)
[2023-06-14] MEDS: NS 1,000 ML IV SCH (10:10)
[2023-06-14] MEDS: OXAZEPAM 15MG CAP PO SCH (10:25)
[2023-06-14] MEDS: THIAMINE 100 MG TAB PO SCH (10:25)
[2023-06-14] MEDS: MULTIVITAMINS/MINERALS THERAP 1 TAB PO SCH (10:25)
[2023-06-14] MEDS: FOLIC ACID 1MG TAB PO SCH (10:25)
[2023-06-14] MEDS: FLUoxetine 20MG CAP PO SCH (10:41)
[2023-06-14 12:28] LABS: BLOOD UREA NITROGEN 9 MG/DL (9-23); CARBON DIOXIDE LEVEL 25 MMOL/L (20-31); CHLORIDE LEVEL 101 MMOL/L (98-107); CREATININE FOR GFR 0.47 MG/DL (0.55-1.30); GLOMERULAR FILTRATION RATE > 60.0 (>60); GLUCOSE, FASTING 84 MG/DL (60-100); SODIUM LEVEL 135 MMOL/L (136-145)
[2023-06-14] MEDS: SODIUM CHLORIDE NASAL 0.65% SPRAY BTL (OCEAN) SCH (21:15)
[2023-06-15] VITALS (8 sets, daily range): BP systolic 116–136; BP diastolic 70–86; TEMP 97.3–99; O2SAT 92–96
[2023-06-15 06:05] LABS: BLOOD UREA NITROGEN 8 MG/DL (9-23); CALCIUM LEVEL 7.7 MG/DL (8.5-10.1); CARBON DIOXIDE LEVEL 27 MMOL/L (20-31); CHLORIDE LEVEL 105 MMOL/L (98-107); CREATININE FOR GFR 0.45 MG/DL (0.55-1.30); GLOMERULAR FILTRATION RATE > 60.0 (>60); GLUCOSE, FASTING 69 MG/DL (60-100); MAGNESIUM LEVEL 1.7 MG/DL (1.8-2.4); POTASSIUM SERUM 2.9 MMOL/L (3.5-5.1); SODIUM LEVEL 140 MMOL/L (136-145)
[2023-06-15] MEDS: POTASSIUM CHLORIDE 10MEQ SR TABLET PO STA (06:58)
[2023-06-15] MEDS: KCL 10MEQ/100ML SWI (KRUN) 100 ML IV SCH (07:31)
[2023-06-15] MEDS: MAGNESIUM OXIDE 400MG TAB (MAG-OX) PO SCH (08:33)
[2023-06-15] MEDS: ENOXAPARIN 40MG/0.4ML SYRINGE (J1650 PER 10MG) SC SCH (08:34)
[2023-06-15] MEDS: KCL 10MEQ/100ML SWI (KRUN) 10 MEQ in IV 1 EA IV SCH (09:37)
[2023-06-15 14:41] LABS: BLOOD UREA NITROGEN 6 MG/DL (9-23); CARBON DIOXIDE LEVEL 25 MMOL/L (20-31); CHLORIDE LEVEL 103 MMOL/L (98-107); GLOMERULAR FILTRATION RATE > 60.0 (>60); GLUCOSE, FASTING 72 MG/DL (60-100); POTASSIUM SERUM 3.9 MMOL/L (3.5-5.1); SODIUM LEVEL 139 MMOL/L (136-145)
[2023-06-15] MEDS: ACETAMINOPHEN TAB 650MG DOSE (2X325MG) PO PRN (23:42)
== END 2023-06-16 02:01 | disposition left against medical advice (07) | DRG 351 ==
LOC: M ED 02:55 → M ED INP 02:56 → M PCU 12:39 → OBSVTOIN 06-15 10:32
PROVIDERS: ADMIT Student in an Organized Health Care Education/Training Program; ATTEND Student in an Organized Health Care Education/Training Program
DX: M62.82 Rhabdomyolysis (principal); E83.42 Hypomagnesemia; K70.10 Alcoholic hepatitis without ascites; F10.229 Alcohol dependence with intoxication, unspecified; F10.230 Alcohol dependence with withdrawal, uncomplicated; E87.6 Hypokalemia; F32.A Depression, unspecified; Z79.899 Other long term (current) drug therapy; Z11.52 Encounter for screening for COVID-19; Z71.41 Alcohol abuse counseling and surveillance of alcoholic

== ENCOUNTER 2024-12-12 17:19 | Inpatient (IN) | payer OTHER ==
[~2024-12-12] VITALS: Ht 167.6 cm; Wt 86.9 kg
[~2024-12-12 17:19] MED LIST changes: +FLUO-365 PO; -FLUO20CA22 PO; +GABA-1172 PO; -GABA-282 PO; -LORA2TA PO; +LORA2TAB15 PO; -MEDR150I12 INJ; +MEDR150I15 INJ; +ONDA-282 PO; -ONDA4TAB6 PO; +SLOW1TAB3 PO; -SLOWTAB2 PO
[2024-12-12 17:53] LABS: BASO # 0.0 10^3/uL (0.0-0.2); BASO % 0.3 % (0.0-1.0); EOS # 0.1 10^3/uL (0.0-0.5); EOS % 1.0 % (0.0-3.0); LYMPH # 2.2 10^3/uL (1.5-5.0); LYMPH % 30.5 % (24.0-44.0); MONO # 0.9 10^3/uL (0.0-0.8); MONO % 12.0 % (2.0-8.0); NEUTROPHILS # 4.0 10^3/uL (1.5-8.5); NEUTROPHILS % 55.9 % (36.0-66.0); PLATELET COUNT, AUTOMATED 274 10^3/uL (150-450)
[2024-12-12 18:20] LABS: SALICYLATE LEVEL < 3.0 MG/DL (<30)
[2024-12-12 18:40] LABS: ALT/SGPT 32 U/L (7.0-40); AST/SGOT 39 U/L (<34); CALCIUM LEVEL 7.2 MG/DL (8.5-10.1); CARBON DIOXIDE LEVEL 28 MMOL/L (20-31); CHLORIDE LEVEL 109 MMOL/L (98-107); CREATININE FOR GFR 0.45 MG/DL (0.55-1.30); ETHYL ALCOHOL (ETHANOL) 0.450 % (0.000-0.010); GLOMERULAR FILTRATION RATE > 90.0 (>58); MAGNESIUM LEVEL 1.7 MG/DL (1.8-2.4); POTASSIUM SERUM 3.2 MMOL/L (3.5-5.1); SODIUM LEVEL 148 MMOL/L (136-145)
[2024-12-12] MEDS: NS (Normal Saline) 0.9% 1,000 ML IV ONE ×2 (18:42→20:39)
[2024-12-12] MEDS: MAGNESIUM OXIDE 400 MG TAB PO ONE (20:28)
[2024-12-12] MEDS: CALCIUM GLUCONATE 1,000 MG in DEXTROSE 5% (D5W) MINI-BAG PLU 100 ML IV ONE (20:28)
[2024-12-12] MEDS: POTASSIUM CHLORIDE 10MEQ SR TABLET PO ONE (20:28)
[2024-12-12] MEDS ORDERED: HYDR-3490 PO (22:33)
[2024-12-12] MEDS ORDERED: HOME MED LIST COMPLETE! XX SCH (22:35)
[2024-12-12] MEDS: NS (Normal Saline) 0.9% 1,000 ML IV SCH (22:47)
[2024-12-12 23:56] LABS: KETONE, URINE AUTO RFX NEGATIVE (NEGATIVE); MUCUS, URINE RFX SMALL (NEGATIVE); NITRITE, URINE AUTO RFX NEGATIVE (NEGATIVE); RBC, URINE AUTO RFX 2 /HPF (0-3); SQUAM EPITHELIAL CELL UR AURFX 1 /HPF (0-6); WBC, URINE AUTO RFX 3 /HPF (0-3)
[2024-12-13] VITALS (11 sets, daily range): BP systolic 118–125; BP diastolic 75–89; TEMP 98.2–99; O2SAT 90–96
[2024-12-13 00:07] LABS: AMPHETAMINES LEVEL URINE NEGATIVE (NEGATIVE); BARBITURATES URINE NEGATIVE (NEGATIVE); BENZODIAZEPINES URINE NEGATIVE (NEGATIVE); COCAINE METABOLITE URINE NEGATIVE (NEGATIVE); METHADONE URINE NEGATIVE (NEGATIVE)
[2024-12-13 00:08] LABS: CANNABINOIDS URINE NEGATIVE (NEGATIVE); OPIATES URINE NEGATIVE (NEGATIVE); PHENCYCLIDINE URINE NEGATIVE (NEGATIVE)
[2024-12-13 00:09] LABS: LEUKOCYTE ESTERASE UR AUTO RFX 2+ (NEGATIVE)
[2024-12-13 00:13] LABS: ALT/SGPT 32 U/L (7.0-40); AST/SGOT 40 U/L (<34); CALCIUM LEVEL 6.8 MG/DL (8.5-10.1); CARBON DIOXIDE LEVEL 26 MMOL/L (20-31); CHLORIDE LEVEL 107 MMOL/L (98-107); CREATININE FOR GFR 0.50 MG/DL (0.55-1.30); GLOMERULAR FILTRATION RATE > 90.0 (>58); MAGNESIUM LEVEL 1.4 MG/DL (1.8-2.4); POTASSIUM SERUM 3.5 MMOL/L (3.5-5.1); SODIUM LEVEL 143 MMOL/L (136-145)
[2024-12-13] MEDS ORDERED: MOM 30 ML SUSPENSION UDC PO PRN (00:30)
[2024-12-13] MEDS ORDERED: MAALOX 30 ML SUSP *UDC PO PRN (00:30)
[2024-12-13] MEDS: MAGNESIUM OXIDE 400 MG TAB PO ONE (04:16)
[2024-12-13] MEDS: CALCIUM CARBONATE 500 MG CHEW U/D PO SCH ×2 (04:16→22:08)
[2024-12-13] MEDS: OXAZEPAM 15MG CAP PO SCH (04:17)
[2024-12-13] MEDS: POTASSIUM CHLORIDE 10MEQ SR TABLET PO ONE (04:21)
[2024-12-13] MEDS: CALCIUM GLUCONATE 1,000 MG in DEXTROSE 5% (D5W) MINI-BAG PLU 100 ML IV ONE ×2 (04:22→05:49)
[2024-12-13] MEDS: MAG SULF 1GM/100ML (MAG RUN) 1 GM in IV 1 EA IV ONE (04:42)
[2024-12-13] MEDS: LR 1,000 ML IV SCH (05:46)
[2024-12-13] MEDS: BACTRIM 160MG/800MG DS TAB PO SCH (07:59)
[2024-12-13] MEDS: THIAMINE 100 MG TAB PO SCH (08:00)
[2024-12-13] MEDS: DOCUSATE SODIUM 100 MG CAPSULE PO SCH (08:00)
[2024-12-13] MEDS: MULTIVITAMINS/MINERALS THERAP 1 TAB PO SCH (08:00)
[2024-12-13] MEDS: FOLIC ACID 1 MG TAB PO SCH (08:00)
[2024-12-13] MEDS: ENOXAPARIN 40 MG/0.4 ML SYRINGE (J1650 PER 10MG) SC SCH (08:00)
[2024-12-13 08:09] LABS: PLATELET COUNT, AUTOMATED 239 10^3/uL (150-450)
[2024-12-13 08:51] LABS: ALT/SGPT 41 U/L (7.0-40); AST/SGOT 58 U/L (<34); CALCIUM LEVEL 7.9 MG/DL (8.5-10.1); CARBON DIOXIDE LEVEL 24 MMOL/L (20-31); CHLORIDE LEVEL 106 MMOL/L (98-107); CREATININE FOR GFR 0.41 MG/DL (0.55-1.30); GLOMERULAR FILTRATION RATE > 90.0 (>58); MAGNESIUM LEVEL 1.8 MG/DL (1.8-2.4); POTASSIUM SERUM 3.7 MMOL/L (3.5-5.1); SODIUM LEVEL 140 MMOL/L (136-145)
[2024-12-13] MEDS: ACETAMINOPHEN 325 MG TAB PO PRN (12:05)
[2024-12-13] MEDS: ONDANSETRON 4MG ORAL DISINTEGRATING TAB PO PRN (22:06)
[2024-12-14] VITALS (14 sets, daily range): BP systolic 112–122; BP diastolic 76–86; TEMP 97.9–98.6; O2SAT 91–92
[2024-12-14] MEDS: OXAZEPAM 15MG CAP PO SCH (00:09)
[2024-12-14 06:55] LABS: PLATELET COUNT, AUTOMATED 219 10^3/uL (150-450)
[2024-12-14 07:32] LABS: ALT/SGPT 45 U/L (7.0-40); AST/SGOT 62 U/L (<34); CALCIUM LEVEL 8.3 MG/DL (8.5-10.1); CARBON DIOXIDE LEVEL 25 MMOL/L (20-31); CHLORIDE LEVEL 106 MMOL/L (98-107); CREATININE FOR GFR 0.54 MG/DL (0.55-1.30); GLOMERULAR FILTRATION RATE > 90.0 (>58); MAGNESIUM LEVEL 1.8 MG/DL (1.8-2.4); POTASSIUM SERUM 4.0 MMOL/L (3.5-5.1); SODIUM LEVEL 139 MMOL/L (136-145)
[2024-12-14 20:10] LABS: APPEARANCE, URINE CLEAR (CLEAR); BACTERIA, URINE AUTO NEGATIVE (NEGATIVE); BILIRUBIN, URINE AUTO NEGATIVE (NEGATIVE); BLOOD, URINE BLOOD 3+ (NEGATIVE); GLUCOSE, URINE (UA) AUTO NEGATIVE (NEGATIVE); KETONE, URINE AUTO NEGATIVE (NEGATIVE); LEUKOCYTE ESTERASE, URINE AUTO NEGATIVE (NEGATIVE); NITRITE, URINE AUTO NEGATIVE (NEGATIVE); PROTEIN, URINE AUTO NEGATIVE (NEGATIVE); RBC, URINE AUTO TNTC /HPF (0-3); SPECIFIC GRAVITY URINE AUTO 1.006 (1.002-1.035); SQUAMOUS EPITHELIAL CELL UR AU 0 /HPF (0-6); UROBILINOGEN, URINE AUTO 2.0 mg/dL (0.0-2.0); WBC, URINE AUTO 4 /HPF (0-3)
[2024-12-15 04:17] VITALS: BP 113/77; TEMP 98.1; O2SAT 92
[2024-12-15 06:14] VITALS: BP 118/74; TEMP 97.9; O2SAT 93
[2024-12-15 08:00] VITALS: BP_SYST 118; BP_SYST 121; BP_DIAS 77; BP_DIAS 80; TEMP 98.1; O2SAT 91
[2024-12-15] MEDS: OXAZEPAM 15MG CAP PO SCH (08:45)
== END 2024-12-15 09:55 | disposition left against medical advice (07) | DRG 770 ==
LOC: M ED 17:19 → EDBD 17:19 → M ED INP 17:20 → M MSPAV 12-13 16:11 → OBSVTOIN 12-13 16:26
PROVIDERS: ADMIT Student in an Organized Health Care Education/Training Program; ATTEND Internal Medicine
DX: F10.239 Alcohol dependence with withdrawal, unspecified (principal); E87.0 Hyperosmolality and hypernatremia; I95.9 Hypotension, unspecified; E83.42 Hypomagnesemia; E83.51 Hypocalcemia; F32.A Depression, unspecified; E87.6 Hypokalemia; Z79.899 Other long term (current) drug therapy; Z98.84 Bariatric surgery status; Z90.49 Acquired absence of other specified parts of digestive tract; N39.0 Urinary tract infection, site not specified

== ENCOUNTER 2024-12-21 03:40 | Emergency (ER) | payer OTHER ==
[~2024-12-21] VITALS: Ht 167.6 cm; Wt 86.5 kg
[~2024-12-21 03:40] MED LIST changes: +HYDR-3490 PO
[2024-12-21] MEDS: OXAZEPAM 15MG CAP PO ONE (07:35)
[2024-12-21] MEDS: NS (Normal Saline) 0.9% 1,000 ML IV ONE (07:42)
[2024-12-21 09:30] VITALS: BP 121/81; TEMP 98.2; O2SAT 94
== END 2024-12-21 10:19 | disposition home or self-care (01) ==
LOC: M ED 03:40
DX: F10.129 Alcohol abuse with intoxication, unspecified (principal); Z98.84 Bariatric surgery status; Z79.899 Other long term (current) drug therapy
CPT/HCPCS: 96374; 99284; J2765

== ENCOUNTER 2025-01-03 12:10 | Emergency (ER) | payer OTHER ==
[~2025-01-03] VITALS: Ht 172.7 cm; Wt 85.6 kg
[2025-01-03 12:20] VITALS: TEMP 98.3
[2025-01-03 12:36] LABS: PLATELET COUNT, AUTOMATED 323 10^3/uL (150-450)
[2025-01-03 13:07] LABS: SALICYLATE LEVEL < 3.0 MG/DL (<30)
[2025-01-03] MEDS: MULTIVITAMINS/MINERALS THERAP 1 TAB PO SCH (13:10)
[2025-01-03] MEDS: THIAMINE 100 MG TAB PO SCH (13:10)
[2025-01-03] MEDS: FOLIC ACID 1 MG TAB PO SCH (13:10)
[2025-01-03 13:16] LABS: ALT/SGPT 215 U/L (7.0-40); AST/SGOT 252 U/L (<34); CALCIUM LEVEL 8.2 MG/DL (8.5-10.1); CARBON DIOXIDE LEVEL 28 MMOL/L (20-31); CHLORIDE LEVEL 94 MMOL/L (98-107); CPK CREATINE PHOSPHOKINASE 535 U/L (34-145); CREATININE FOR GFR 0.52 MG/DL (0.55-1.30); ETHYL ALCOHOL (ETHANOL) 0.407 % (0.000-0.010); GLOMERULAR FILTRATION RATE > 90.0 (>58); POTASSIUM SERUM 3.8 MMOL/L (3.5-5.1); SODIUM LEVEL 138 MMOL/L (136-145)
[2025-01-03] MEDS: NS (Normal Saline) 0.9% 1,000 ML IV ONE (15:08)
[2025-01-03 17:57] LABS: AMPHETAMINES LEVEL URINE NEGATIVE (NEGATIVE); BARBITURATES URINE NEGATIVE (NEGATIVE); CANNABINOIDS URINE NEGATIVE (NEGATIVE); COCAINE METABOLITE URINE NEGATIVE (NEGATIVE); METHADONE URINE NEGATIVE (NEGATIVE); OPIATES URINE NEGATIVE (NEGATIVE); PHENCYCLIDINE URINE NEGATIVE (NEGATIVE)
[2025-01-03 17:58] LABS: BENZODIAZEPINES URINE POSITIVE (NEGATIVE)
[2025-01-03 23:15] VITALS: BP 109/69; O2SAT 96
[2025-01-03] MEDS: LORazepam 1 MG TAB PO ONE (23:26)
== END 2025-01-03 23:50 | disposition home or self-care (01) ==
LOC: M ED 12:10
DX: F10.129 Alcohol abuse with intoxication, unspecified (principal); I10 Essential (primary) hypertension; F32.A Depression, unspecified; Z98.84 Bariatric surgery status; Z79.899 Other long term (current) drug therapy